=== PATIENT | male | born 1960 | race Caucasian/White ===

== ENCOUNTER 2018-08-04 17:37 | Outpatient (REF) | payer BC, SELFPAY ==
[2018-08-04 18:31] LABS: HCT 49.9 % (40.0-50.0); Mean Corp. HGB Concentration 34.1 g/dL (32.0-36.0); Mean Corpuscular Hemoglobin 30.4 pg (27.0-33.0); Mean Corpuscular Volume 89.3 fL (80-95); Mean Platelet Volume 9.1 fL (8.0-11.0); Platelet Count 345 x1000/uL (130-400); RBC 5.59 m/cumm (4.50-6.00); RBC Distribution Width 12.7 % (11.8-14.1); White Blood Cell Count 8.08 k/cumm (4.4-10.8)
[2018-08-04 18:51] LABS: ALT 21 U/L (12-78); AST 17 U/L (15-37); Albumin 3.9 g/dL (3.4-5.0); Alkaline Phosphatase 59 U/L (46-116); Anion Gap 10.7 mmol/L (3-11); BUN 14 mg/dL (7-18); Bilirubin, Total 0.6 mg/dL (0.2-1.0); CO2 27.3 mmol/L (21.0-32.0); CREATININE 1.03 mg/dL (0.70-1.30); Calcium 9.7 mg/dL (8.5-10.1); Chloride 100 mmol/L (98-107); Glucose 85 mg/dL (70-100); Potassium 4.5 mmol/L (3.5-5.1); Sodium 138 mmol/L (136-145); Total Protein 7.3 g/dL (6.4-8.2)
[2018-08-09 09:07] LABS: PSA, Screening 1.3 ng/ml (0-3.5)
[2018-08-12 11:50] LABS: Testosterone, Free 45.8 ng/dL (3.87-14.7); Testosterone, Total 1090 ng/dL (240-950)
== END 2018-08-04 17:57 ==
LOC: NCHCN 17:37
PROVIDERS: PCP Family Medicine; Visit Provider Family Medicine
DX: E29.1 Testicular hypofunction (principal); Z12.5 Encounter for screening for malignant neoplasm of prostate
CPT/HCPCS: 80053; 84153; 84402; 84403; 85027

== ENCOUNTER 2018-12-11 15:55 | Outpatient (REF) | payer BC, SELFPAY ==
--- NOTE | 2018-12-11 15:55 | SKI_PTH ---
PATIENT: Jefry Guadarrama LOC: [facility] U#:[id number] AGE/SX: 57/M ROOM: RE12/11/[address]: Dom Kennedy : 1960 BED: DIS: 12/11/2018 SPEC #: [id number] RECD: 12/12/18 12:37 STATUS: LARA HARDIN #: [id number] KARLENE: 12/11/18 15:[address]: Dom Kennedy DEPT: Surgical Specimen RECD BY: Althea Santos Tissues: 1 - SKIN BIOPSY(SHAVE/PUNCH) Procedures: SKIN LEVEL 4 Comments: [id number]
== END 2018-12-11 16:15 ==
LOC: NCHCN 15:55
PROVIDERS: PCP Family Medicine; Visit Provider Family Medicine
DX: L82.1 Other seborrheic keratosis (principal)
CPT/HCPCS: 88305

== ENCOUNTER 2019-01-15 13:29 | Outpatient (CLI) | payer BC, SELFPAY ==
--- NOTE | 2019-01-15 11:57 | DI.RAD_ITS ---
SYMPTOMS/DIAGNOSIS: LOW BACK PAIN, M54.5 LUMBOSACRAL SPINE: Five views were obtained. The intervertebral disc spaces appear fairly well maintained. Prominent hypertrophic changes of the vertebral endplates are noted at multiple levels of thoracolumbar junction region and also at L 4 - 5. Moderate hypertrophic degenerative changes of the facet joints noted throughout the lumbar region as well. No evidence of spondylolysis or spondylolisthesis. No fracture or other pathology seen. CONCLUSION: Degenerative changes of the lumbar spine as described above.
== END 2019-01-15 13:49 ==
PROVIDERS: PCP Family Medicine; Visit Provider Family Medicine
DX: M54.5 Low back pain (principal); M47.816 Spondylosis without myelopathy or radiculopathy, lumbar region
CPT/HCPCS: 72110

== ENCOUNTER 2019-05-29 13:11 | Outpatient (CLI) | payer BC, SELFPAY ==
[2019-05-29 13:37] VITALS: BP 127/82; PULSE 112; RESP 18; TEMP 37.9; O2SAT 97
[2019-05-29 14:40] VITALS: BP 146/80; PULSE 105; RESP 13; O2SAT 97
[2019-05-29] MEDS: Omnipaque 240 MG/ML 50 ML BTL IJ (14:40)
[2019-05-29] MEDS: methylPREDNISolone ACETATE 80 MG/ML VIAL IM (14:41)
--- NOTE | 2019-05-29 14:41 | PDOC.PAIN ---
Pain Clinic Procedure Note Procedure Note Procedure Note: Lumbar Epidural Steroid Injection Procedure Note COMMENTS: Previously seen in our office. Notes and most recent lumbar spine MRI reviewed. OPAL JALLOH has been referred to the [facility] for lumbar epidural steroid injection. The patient was greeted by the nurse who verified patients name and . Patient was then taken to the fluoroscopy suite. The patient was interviewed and the medial record reviewed. There were no medical, pharmacologic, radiographic, or other structural contraindications to attempting fluoroscopically guided lumbar epidural steroid injection. Risks and expected side effects as well as potential benefits of the procedure were reviewed and voiced concerns expressed. The patient consent form was signed and witnessed. Standard patient time-out procedure was performed. The patient was placed in the prone position on the fluoroscopy table and automated blood pressure cuff and pulse oximeter applied. The skin entry point for entering/approaching the epidural space at L5-S1 and marked. Following thorough chlorhexadine preparation of the skin and draping and 1% lidocaine infiltration of the skin entry point and subcutaneous tissues, a 18 gauge Touhy needle was placed under fluoroscopic guidance and with loss of resistance technique into the epidural space. Needle tip placement and depth were aided and confirmed by fluoroscopy. There was no paresthesia or return of blood or CSF through the needle. 1 cc's of Omnipaque 240 was injected with clear epidural spread confirmed with fluoroscopy. 80mg depomedrol was injected. There was not any unusual discomfort expressed by OPAL JALLOH. Patient's vital signs were stable throughout the procedure and were as recorded in nursing records. Follow up plans and appointments were discussed with patient. Post procedure instruction was given as documented in nursing records and having met discharge criteria and was discharged from the [facility]. COMMENTS: If this procedure is helpful, it can be completed up to 3 times per 12 months.
--- NOTE | 2019-05-29 15:05 | DI.RAD_ITS ---
EXAM: XR PAIN CLINIC LUMBAR SP 2V CLINICAL HISTORY: Lumbar Epidural Steroid Injection TECHNIQUE: COMPARISON: No exams were available for comparison FINDINGS: C-arm fluoroscopy was utilized by Dr. Morris during lumbar epidural steroid injection. Hard copies luba w epidural injection at the L5-S1 level. IMPRESSION:
== END 2019-05-29 13:31 ==
PROVIDERS: PCP Family Medicine; Visit Provider Preventive Medicine Occupational Medicine
DX: M54.17 Radiculopathy, lumbosacral region (principal)
CPT/HCPCS: 62323; 72100; J1040; Q9967

== ENCOUNTER 2019-08-16 13:44 | Outpatient (CLI) | payer BC, SELFPAY ==
[2019-08-16 14:02] VITALS: BP 121/75; PULSE 105; RESP 18; TEMP 37.7; O2SAT 96
--- NOTE | 2019-08-16 15:08 | PDOC.PAIN_ITS ---
Pain Clinic Procedure Note Procedure Note Procedure Note: Lumbar/Sacral Medial Branch Blocks OPAL JALLOH has been referred to the [facility] for lumbar/sacral medial branch blocks. COMMENTS: I did review Ms. Barba's note from his recent visit here. DX: Lumbosacral spondylosis without myelopathy Patient was interviewed and the medical record reviewed. There were no medical, pharmacologic, radiographic or other structural contraindications to attempting fluoroscopically guided local anesthetic lumbar/sacral medial branch blocks. Risks and expected side effects as well as potential benefit of the procedure were reviewed and voiced concerns addressed. The printed consent form was signed and witnessed. Standard time-out procedure was performed. Patient was placed in the prone position on the fluoroscopy table and automated blood pressure cuff and pulse oximeter applied. The skin entry points for approaching the anatomic target points of the segmental medial branches of bilateral L3-L5 were identified with anfluoroscopy and marked. Following thorough Chlorhexadine preparation of the skin and draping and 1% lidocaine infiltration of the skin entry points and subcutaneous tissues, a 25 gauge 3.5 spinal needle was placed under fluoroscopic guidance down on to the target point for each respective segmental medial branch.Position was confirmed in A/P, oblique and lateral views with 0.25ml of omnipaque 240. At this point, I injected 0.5ml of 0.5% Bupivacaine was injected at each segmental nerve. Vital signs were stable throughout the procedure and were as recorded in the docflowsheet by the nursing staff. Follow up plans and appointments were discussed and was instructed to keep careful note of how the usual pain was modified by these injections. Specifically was asked to keep a pain diary for the next 24 hours using a numer ic pain scale of 0-10 and report these results at the follow-up visit. Post procedure instruction was given as documented in the nursing documentation and having met discharge criteria. Patient was discharged from the [facility]. Based on the medial branches blocked today, if the patient has adequate relief and we are able to proceed to radiofrequency ablation, the treatment should r esult in the denervation of the bilateral L4-L5 and L5-S1 FACET JOINTS. We would expect to denervate a total of 4 facets during the radiofrequency ablation. COMMENTS: He will call back with his 1-4 hour pain scores for his low back. CC: Dom Kennedy
[2019-08-16 15:17] VITALS: BP 136/93; PULSE 98; RESP 18; O2SAT 98
[2019-08-16] MEDS: Omnipaque 240 MG/ML 50 ML BTL IJ (15:20)
[2019-08-16] MEDS: Bupivacaine 0.5% Pres-Free 10 ML VIAL IJ (15:21)
--- NOTE | 2019-08-16 15:57 | DI.RAD_ITS ---
EXAM: XR PAIN CLINIC LUMBAR SP 2V CLINICAL HISTORY: LUMBAR SPONDYLOSIS, BILATERAL LUMBAR MEDIAL BRANCH BLOCKS #2 TECHNIQUE: C-arm fluoroscopy was utilized by Dr. Morrsi during reported lumbar medial branch block. COMPARISON: No exams were available for comparison FINDINGS: Hard copies show needle placement and injection adjacent to the pedicles of what appear to be L3, L4 and L5 bilaterally. Fluoro time 59.3 seconds
== END 2019-08-16 14:04 ==
PROVIDERS: PCP Family Medicine; Visit Provider Preventive Medicine Occupational Medicine
DX: M47.817 Spondylosis without myelopathy or radiculopathy, lumbosacral region (principal)
CPT/HCPCS: 64493; 64494; 72100; Q9967

== ENCOUNTER 2019-08-30 10:19 | Outpatient (CLI) | payer BC, SELFPAY ==
[2019-08-30 10:50] VITALS: BP 111/73; PULSE 88; RESP 18; TEMP 37.6; O2SAT 96
--- NOTE | 2019-08-30 11:38 | PDOC.PAIN ---
Pain Clinic Procedure Note Procedure Note Procedure Note: Lumbar/Sacral Medial Branch Blocks #2 OPAL JALLOH has been referred to the [facility] for lumbar/sacral medial branch blocks. COMMENTS: He did great with LMBB #1 on 08/16/2019 DX: Lumbosacral spondylosis without myelopathy Patient was interviewed and the medical record reviewed. There were no medical, pharmacologic, radiographic or other structural contraindications to attempting fluoroscopically guided local anesthetic lumbar/sacral medial branch blocks. Risks and expected side effects as well as potential benefit of the procedure were reviewed and voiced concerns addressed. The printed consent form was signed and witnessed. Standard time-out procedure was performed. Patient was placed in the prone position on the fluoroscopy table and automated blood pressure cuff and pulse oximeter applied. The skin entry points for approaching the anatomic target points of the segmental medial branches of bilateral L3-L5 were identified with anfluoroscopy and marked. Following thorough Chlorhexadine preparation of the skin and draping and 1% lidocaine infiltration of the skin entry points and subcutaneous tissues, a 22 gauge spinal needle was placed under fluoroscopic guidance down on to the target point for each respective segmental medial branch.Position was confirmed in A/P, oblique and lateral views with 0.25ml of omnipaque 240. At this point I injected 0.5cc of 2% Lidocaine at each segmental nerve. Vital signs were stable throughout the procedure and were as recorded in the docflowsheet by the nursing staff. Follow up plans and appointments were discussed and was instructed to keep careful note of how the usual pain was modified by these injections. Specifically was asked to keep a pain diary for the next 24 hours using a numeric pain scale of 0-10 and report these results at the follow-up visit. Post procedure instruction was given as documented in the nursing documentation and having met discharge criteria. Patient was discharged from the [facility]. Based on the medial branches blocked today, if the patient has adequate relief and we are able to proceed to radiofrequency ablation, the treatment should result in the denervation of the bilateral L3-L5DR FACET JOINTS. We would expect to denervate a total of 4 facets during the radiofrequency ablation. COMMENTS: He will call back with his 1-4 hour post-procedure pain levels for his low back. CC: Dom Kennedy
[2019-08-30] MEDS: Omnipaque 240 MG/ML 50 ML BTL IJ (11:47)
[2019-08-30] MEDS: Lidocaine 2% Pres-Free 5 ML VIAL IJ (11:48)
[2019-08-30 11:49] VITALS: BP 116/86; PULSE 94; RESP 12; O2SAT 96
--- NOTE | 2019-08-30 12:29 | DI.RAD_ITS ---
EXAM: XR PAIN CLINIC LUMBAR SP 2V CLINICAL HISTORY: Lumbar Medial Branch Block Bilat, lumbar spondylosis TECHNIQUE: Fluoroscopy was provided for the referring physician for guidance with performing injecti on procedure. Fluoro time: 13.63 mGy COMPARISON: No exams were available for comparison FINDINGS: Please see procedure note for details.
== END 2019-08-30 10:39 ==
PROVIDERS: PCP Family Medicine; Visit Provider Preventive Medicine Occupational Medicine
DX: M47.817 Spondylosis without myelopathy or radiculopathy, lumbosacral region (principal)
CPT/HCPCS: 64493; 64494; 72100; Q9967

== ENCOUNTER 2019-10-02 11:30 | Outpatient (CLI) | payer BC, SELFPAY ==
[2019-10-02 11:45] VITALS: BP 110/74; PULSE 93; RESP 16; TEMP 37.2; O2SAT 96
--- NOTE | 2019-10-02 11:52 | PDOC.PAIN ---
Pain Clinic Procedure Note Procedure Note Procedure Note: BILATERAL Lumbar Radiofrequency with Coolief Machine PROCEDURE NOTE Date of Service: October 02, 2019 Patient: YEIMIOPAL DALEY Mckay Provider: SOFIA ASHLEY MD Pre Operative Diagnosis: lumbar spondylosis Post Operative Diagnosis: same as above Radiofrequency Ablation of medial branches - bilateral L3, L4, L5-DR OPAL JALLOH was brought into the fluoroscopy suite and positioned into the prone position on the fluoroscopy table and allowed to adjust to a position of comfort. A grounding pad was placed on the [right/left] thigh. The lumbar region was widely prepped with a chloraprep solution, allowed to air dry and draped in standard sterile surgical fashion. Local anesthesia was provided by [] mL of [] % [] delivered with a 25g needle. A 17g 100mm radiofrequency introducer needle was placed to the planned anatomic targets guided with intermittent fluoroscopy with a perpendicular approach to terminally place at the junction of the superior articular process and the transverse process of the bilateral L3, L4, and the base of the sacral ala on the bilateral for the L5 medial branch nerve. The stylets were removed and radiofrequency probes with a 4mm active tip were then inserted. Needle tip position of the probes was verified in the AP, oblique, and lateral views. At each site, the medial branch nerve was stimulated at 2 Hz to a maximum 1-2 volts determined to finalize safe needle and electrode placement. The patient was awake and responsive during this portion of the procedure. Each target was anesthetized with 1 mL of 2 % lidocaine for anesthesia for lesioning and then each target was lesioned at 80 degrees Celsius for 2 minutes and 30 seconds. Tissue impedences were noted to be between 250 and 500 Ohms. Electrodes and needles were then removed and bandages placed over the needle placement sites, the patient then returned to the supine position on a stretcher and transported to the recovery room without hemodynamic, neurologic, or allergic reactions. Fluoroscopic images were printed for hard copy recording and digitally archived. Follow up plans and appointments were discussed with the OPAL . Post procedure instruction was given as documented in nursing documentation and having met discharge criteria, OPAL was discharged from the [facility]. COMMENTS: No complications. patient received total of 1mg IV versed and 50mcg of IV Fentanyl for anxiolytic. He otherwise tolerated procedure well without issue. F/U with our office as needed. I personally performed this entire procedure. Sofia Ashley MD Attending Physician
[2019-10-02] MEDS: fentaNYL 100 MCG/2 ML VIAL IVP ×2 (12:14→12:42)
[2019-10-02] MEDS: Midazolam 2 MG/2 ML VIAL IVP (12:15)
[2019-10-02] MEDS: Lactated Ringers 1,000 ML 80 ML IV (12:15)
[2019-10-02 12:54] VITALS: BP 133/87; PULSE 99; RESP 19; O2SAT 94
--- NOTE | 2019-10-02 12:55 | DI.RAD_ITS ---
EXAM: XR PAIN CLINIC LUMBAR SP 2V CLINICAL HISTORY: Dx: Lumbar Spondylosis TECHNIQUE: Realtime digital imaging was performed. Fluoro time: 90.1 sec, 27.18 mGy COMPARISON: No exams were available for comparison FINDINGS: Fluoroscopy was utilized by Dr. Castro during the performance of a lumbar radiofrequency ablation. Jf johnson refer to the procedure report for complete details.
[2019-10-02] MEDS: methylPREDNISolone ACETATE 40 MG/ML VIAL IJ (13:05)
[2019-10-02] MEDS: Lidocaine 1% Pres-Free 30 ML VIAL IJ (13:05)
[2019-10-02] MEDS: Lidocaine 2% Pres-Free 5 ML VIAL IJ (13:06)
[2019-10-02] MEDS: Bupivacaine 0.5% Pres-Free 10 ML VIAL IJ (13:06)
== END 2019-10-02 11:50 ==
PROVIDERS: PCP Family Medicine; Visit Provider Internal Medicine
DX: M47.816 Spondylosis without myelopathy or radiculopathy, lumbar region (principal)
CPT/HCPCS: 64635; 64636; 72100; J1030; J2250; J3010

== ENCOUNTER 2019-10-22 10:39 | Outpatient (CLI) | payer BC, SELFPAY ==
--- NOTE | 2019-10-22 10:30 | DI.RAD_ITS ---
EXAM: XR KNEE LT 3V AP,LAT,MARY AND XR KNEE RT 3V AP, LAT,MARY CLINICAL HISTORY: anterior left knee pain, anterior rt knee pain TECHNIQUE: 2D digital imaging was performed. FINDINGS: BONES: No acute fracture is present. No bony destructive lesion is seen. There are enthesophytes see n at the patella and the anterior tibial tuberosity on the left and the right. JOINTS: The knee is normally aligned. No joint effusion is seen. SOFT TISSUE: Normal. Vascular calcifications are present. IMPRESSION: No acute abnormality. Chronic changes of the knees bilaterally. DATA REPOSITORY: RADIATION DOSE DELIVERED:
== END 2019-10-22 10:59 ==
PROVIDERS: PCP Family Medicine; Visit Provider Student in an Organized Health Care Education/Training Program
DX: M25.562 Pain in left knee (principal); M25.561 Pain in right knee; M76.891 Other specified enthesopathies of right lower limb, excluding foot; M76.892 Other specified enthesopathies of left lower limb, excluding foot
CPT/HCPCS: 73562

== ENCOUNTER 2019-10-31 02:16 | Outpatient (CLI) | payer BC, SELFPAY ==
--- NOTE | 2019-10-31 08:30 | DI.MRI_ITS ---
EXAM: MR LOWER JOINT LT WO CLINICAL HISTORY: INTERNAL DERANGEMENT LT KNEE, PAIN,M23.92. TECHNIQUE: Multiplanar multisequence MRI was performed. COMPARISON: XR KNEE LT 3V AP,LAT,MARY from 10/22/2019 FINDINGS: Bones: No significant bony signal abnormality is seen. Superior and inferior patellar enthesophytes n oted as seen on plain films. Articular cartilage: Mild narrowing of patellofemoral joint articular cartilage with small focal cart ilage defect lateral patellar facet and lateral trochlea. Minimally abnormal signal of patellofemoral articular cartilage. Mild thinning of medial and lateral tibiofemoral articular cartilage, probable small linear focal def ect of medial femoral condylar articular cartilage. Mild surface irregularity of both medial and late ral and tibial articular cartilage. Menisci: No tear of menisci or meniscal attachments. Minimally abnormal signal medial and lateral men isci, question slight fraying of posterior horn meniscal surfaces medially and laterally. Cruciate ligaments: No cruciate ligament tear seen. Extensor mechanism: Mildly abnormal signal at patellar tendon attachment inferiorly involving the ten don and adjacent anterior soft tissues. Similar findings also present at the quadriceps attachment, b ut less marked. Unremarkable appearance of Hoffa fat pad and suprapatellar fat pads Additional: No Portillo's cyst. Unremarkable tendon attachments as visualized. IMPRESSION: Degenerative articular cartilage changes, no other significant findings. DATA REPOSITORY:
== END 2019-10-31 02:36 ==
PROVIDERS: PCP Family Medicine; Visit Provider Student in an Organized Health Care Education/Training Program
DX: M25.562 Pain in left knee (principal); M23.92 Unspecified internal derangement of left knee; M17.12 Unilateral primary osteoarthritis, left knee
CPT/HCPCS: 73721

== ENCOUNTER 2020-02-08 11:31 | Outpatient (REF) | payer BC, SELFPAY ==
[2020-02-08 15:27] LABS: HCT 47.4 % (40.0-50.0); HGB 16.6 g/dL (13.5-17.5); Mean Corpuscular Hemoglobin 30.8 pg (27.0-33.0); Mean Corpuscular Volume 87.9 fL (80-95); Mean Platelet Volume 9.2 fL (8.0-11.0); Platelet Count 296 x1000/uL (130-400); RBC 5.39 m/cumm (4.50-6.00); White Blood Cell Count 6.77 k/cumm (4.4-10.8)
[2020-02-08 16:43] LABS: ALT 31 U/L (16-63); AST 23 U/L (15-37); Albumin 3.9 g/dL (3.4-5.0); Alkaline Phosphatase 82 U/L (46-116); Anion Gap 9.4 mmol/L (3-11); BUN 17 mg/dL (7-18); Bilirubin, Total 0.7 mg/dL (0.2-1.0); CO2 27.6 mmol/L (21.0-32.0); CREATININE 1.19 mg/dL (0.70-1.30); Calcium 9.3 mg/dL (8.5-10.1); Calculated LDL 75 mg/dL (<100); Chloride 98 mmol/L (98-107); Cholesterol 145 mg/dL (<200); Glucose 233 mg/dL (74-106); HDL Cholesterol 45 mg/dL (40-60); Potassium 4.8 mmol/L (3.5-5.1); Sodium 135 mmol/L (136-145); Total Protein 7.3 g/dL (6.4-8.2); Triglyceride 129 mg/dL (<150)
[2020-02-11 10:04] LABS: PSA, Screening 1.4 ng/mL (0.0-4.5)
[2020-02-13 13:38] LABS: Testosterone, Free 2.12 ng/dL (3.67-13.9); Testosterone, Total 92 ng/dL (240-950)
== END 2020-02-08 11:51 ==
LOC: NCHCN 11:31
PROVIDERS: PCP Family Medicine; Visit Provider Family Medicine
DX: E11.9 Type 2 diabetes mellitus without complications (principal); Z79.4 Long term (current) use of insulin; E29.1 Testicular hypofunction; Z00.00 Encounter for general adult medical examination without abnormal findings; Z12.5 Encounter for screening for malignant neoplasm of prostate
CPT/HCPCS: 80053; 80061; 84153; 84402; 84403; 85027

== ENCOUNTER 2020-03-18 02:01 | Outpatient (CLI) | payer BC, SELFPAY ==
--- NOTE | 2020-03-18 15:00 | NS.NUTBLAN_ITS ---
Jefry presents for Medical Nutrition Therapy for Diabetes/Diet management. He is here today to improve his A1C control and wants to work on improving his diet. PMH: constipation, Insulin Dept DM, HTN, Hyperlipidemia. Meds include: fiber pills, levemire- 40 unites daily, 500 mg metformin BID, lisinopril, atorvastatin. He reports typically not checking sugars at home, reports elevated A1C and poor glycemic control. No recent A1C labs available, most recent labs tests(02/08/20) indicates hyperglycemia(233), lipids wnl. Wt: 195 lbs. Had gastric band 2012 with initial weight of 270 lbs. Has kept > 75 lbs off for last 5 years. Had band adjustment yesterday- loosened. Estimated Needs: 1094-6853 kcal, 65-75 g protein, 2000 ml fluid Diet recall indicates that he typically skips breakfast, has typically one meal daily and eats cereal/fruit at dinner. Reliant on convenience and junk foods. Does not exercise regularly or take multivitamins. Current diet meeting <50% of caloric/protein and fluid needs at this time which will lead to muscle loss,constipation and lowering of metabolic rate. Elevated blood sugars due to poor diet choices high in simple sugars and erratic meal schedule. Recommended citrucel instead of fiber pills as fluid intake below recommendations. Intervention: Reviewed importance of following 3 meals daily and meeting nutrient needs with focus on lean protein, complex carbs and non starchy vegetables. reviewed importance of maintaining metabolic rate to decrease risk of weight regain after gastric banding. Provided education on DM including Hyper/hypoglycemia s/s with action plan for each scenario. Definition and types of CHO with examples, CHO counting, DASH diet materials, DM meal planning and label reading literature. Provided a blood sugar and food record chart and materials to reiterate CHO counting techniques. Reviewed desirable BG levels with patient with food choices and portions for optimal outcomes. Provided contact information for this RD and encouraged to call with any f/u questions r/t to DM self management. Encouraged MVI daily. Plan: 1. check blood sugars and follow up with MD, 2. follow 1500 kcal meal plan as provided,decrease reliance on convenience foods 3. take chewable MVI for men (centrum silver), 4. start formal exercise program. 5. follow up needed, no fu meeting made today.
== END 2020-03-18 02:21 ==
PROVIDERS: PCP Family Medicine; Visit Provider Dietitian, Registered
DX: E11.9 Type 2 diabetes mellitus without complications (principal); Z79.4 Long term (current) use of insulin; I10 Essential (primary) hypertension; E78.5 Hyperlipidemia, unspecified; Z71.3 Dietary counseling and surveillance
CPT/HCPCS: 97802

== ENCOUNTER 2020-04-04 18:51 | Outpatient (REF) | payer BC, SELFPAY ==
[2020-04-08 05:37] LABS: SARS-CoV-2 RNA Undetected (Undetected); SARS-CoV-2 Specimen Source Nasopharynx
== END 2020-04-04 19:11 ==
LOC: NCHCN 18:51
PROVIDERS: PCP Family Medicine; Visit Provider Family Medicine
DX: Z20.828 Contact with and (suspected) exposure to other viral communicable diseases (principal)
CPT/HCPCS: U0003

== ENCOUNTER 2020-04-18 21:39 | Outpatient (REF) | payer BC, SELFPAY ==
[2020-04-18 20:11] LABS: Clarity Cloudy (Clear)
[2020-04-18 20:43] LABS: RBC >50 HPF (0-2)
[2020-04-18 20:44] LABS: C & S Indicated? No
== END 2020-04-18 21:59 ==
LOC: NCHCN 21:39
PROVIDERS: PCP Family Medicine; Visit Provider Family Medicine
DX: R31.0 Gross hematuria (principal)
CPT/HCPCS: 81003; 81015

== ENCOUNTER 2020-04-28 12:20 | Outpatient (REF) | payer BC, SELFPAY ==
[2020-04-28 19:57] LABS: CREATININE 0.93 mg/dL (0.70-1.30)
== END 2020-04-28 12:40 ==
LOC: NCHCN 12:20
PROVIDERS: PCP Family Medicine; Visit Provider Family Medicine
DX: R31.0 Gross hematuria (principal)
CPT/HCPCS: 82565

== ENCOUNTER 2020-05-01 01:20 | Outpatient (CLI) | payer BC, SELFPAY ==
--- NOTE | 2020-05-01 | DI.CT_ITS ---
EXAM: CT ABDOMEN PELVIS WO/W CLINICAL HISTORY: HEMATURIA,R31.9 TECHNIQUE: COMPARISON: No exams were available for comparison FINDINGS: CT examination of the abdomen and pelvis was performed utilizing CT urogram protocol with intravenous infusion of 100 cc of Omnipaque 350 and scanning obtained prior to contrast, with venous phase and d elayed phase imaging. Lung bases are clear. Unremarkable appearance of the liver, spleen, and pancreas. Cholelithiasis no jameson. No biliary dilatation. No gallbladder wall thickening or pericholecystic fluid collection seen . Gastric band with subcutaneous inflation reservoir noted. Abdominal aorta is of normal diameter and major visceral vessels appear intact. No abdominal or pelvic adenopathy seen. Noncontrast CT shows no evidence of urinary tract calcification. Following contrast administration, there is symmetrical normal enhancement of the renal cortex and prompt symmetric excretion. No renal mass identified. The pelvicaliceal systems and ureters are unremarkable in appearance. Urinary cheng dder has a thickened wall. Prostatic enlargement noted which indents the bladder floor. IMPRESSION: No evidence of urinary tract obstruction or calcification. Marked urinary bladder wall thickening, q uestion chronic bladder outlet obstruction versus cystitis. Note is made of cholelithiasis. RADIATION DOSE DELIVERED: 3,237.95mGy.cm Total DLP
== END 2020-05-01 01:40 ==
PROVIDERS: PCP Family Medicine; Visit Provider Family Medicine
DX: R31.9 Hematuria, unspecified (principal); K80.20 Calculus of gallbladder without cholecystitis without obstruction
CPT/HCPCS: 74178

== ENCOUNTER 2020-05-09 08:03 | Outpatient (CLI) | payer BC, SELFPAY ==
[2020-05-10 23:40] LABS: COVID-19 RT-PCR Result NEGATIVE (Negative)
== END 2020-05-09 08:23 ==
PROVIDERS: PCP Family Medicine; Visit Provider Nurse Practitioner Gerontology
DX: Z11.59 Encounter for screening for other viral diseases (principal); Z01.818 Encounter for other preprocedural examination
CPT/HCPCS: U0003

== ENCOUNTER 2020-06-10 09:23 | Outpatient (CLI) | payer BC, SELFPAY ==
--- NOTE | 2020-06-10 06:00 | DI.RAD_ITS ---
EXAM: XR PAIN CLINIC LUMBAR SP 2V CLINICAL HISTORY: Dx: Lumbar Spondylosis TECHNIQUE: 2D and realtime digital imaging was performed. COMPARISON: No exams were available for comparison FINDINGS: C-arm fluoroscopy was utilized by Dr. Harmon during reported RF ablation. Hard copies show needle placeme nt bilaterally adjacent to the facet joints at what appear to be the L3-4 L4-5 and L5-S1 levels. Fluoro time 85 seconds. IMPRESSION: RADIATION DOSE DELIVERED: Total DLP
[2020-06-10 13:37] VITALS: BP 132/84; PULSE 92; RESP 16; TEMP 36.4; O2SAT 97
[2020-06-10] MEDS: Lactated Ringers 1,000 ML 80 ML IV (14:01)
[2020-06-10] MEDS: Midazolam 2 MG/2 ML VIAL IVP (14:17)
[2020-06-10] MEDS: fentaNYL 100 MCG/2 ML VIAL IVP ×2 (14:17→14:44)
[2020-06-10 14:57] VITALS: BP 135/83; PULSE 106; RESP 18; O2SAT 100
[2020-06-10] MEDS: Bupivacaine 0.5% Pres-Free 10 ML VIAL IJ (15:10)
[2020-06-10] MEDS: Lidocaine 1% Pres-Free 30 ML VIAL IJ (15:11)
[2020-06-10] MEDS: Lidocaine 2% Pres-Free 5 ML VIAL IJ (15:11)
== END 2020-06-10 09:43 ==
PROVIDERS: PCP Family Medicine; Visit Provider Internal Medicine
DX: M47.816 Spondylosis without myelopathy or radiculopathy, lumbar region (principal)
CPT/HCPCS: 64635; 64636; 72100; J2250; J3010

== ENCOUNTER 2021-01-14 03:18 | Outpatient (CLI) | payer BC, SELFPAY ==
[2021-01-14 09:23] LABS: HCT 43.1 % (40.0-50.0); HGB 15.1 g/dL (13.5-17.5); MCH 31.7 pg (27.0-33.0); MCV 90.5 fL (80-95); MPV 8.4 fL (8.0-11.0); Platelet Count 308 10^3/uL (130-400); RBC 4.76 10^6/uL (4.36-5.78); RDW 12.7 % (11.8-14.1); RDW-SD 41.4 fL; WBC 5.21 10^3/uL (4.4-10.8)
[2021-01-14 10:15] LABS: ALT 18 U/L (16-63); AST 14 U/L (15-37); Albumin 3.5 g/dL (3.4-5.0); Alkaline Phosphatase 64 U/L (46-116); Anion Gap 10.7 mmol/L (3-11); BUN 15 mg/dL (7-18); Bilirubin, Total 0.5 mg/dL (0.2-1.0); CO2 25.3 mmol/L (21.0-32.0); CREATININE 1.1 mg/dL (0.70-1.30); Calcium 8.6 mg/dL (8.5-10.1); Chloride 103 mmol/L (98-107); Glucose 162 mg/dL (74-106); Potassium 4.6 mmol/L (3.5-5.1); Sodium 139 mmol/L (136-145); Total Protein 6.7 g/dL (6.4-8.2)
[2021-01-14 17:35] LABS: PSA, Screening 1.1 ng/mL (0.0-4.5)
[2021-01-16 16:35] LABS: Testosterone, Free 7.96 ng/dL (3.67-13.9); Testosterone, Total 181 ng/dL (240-950)
== END 2021-01-14 03:19 | disposition home or self-care (01) ==
LOC: LBO 03:18
PROVIDERS: PCP Family Medicine; Visit Provider Family Medicine
DX: E29.1 Testicular hypofunction (principal); Z12.5 Encounter for screening for malignant neoplasm of prostate; E11.9 Type 2 diabetes mellitus without complications; Z79.4 Long term (current) use of insulin
CPT/HCPCS: 36415; 80053; 84153; 84402; 84403; 85027

== ENCOUNTER 2022-02-05 01:57 | Outpatient (CLI) | payer BC, SELFPAY ==
--- OUTSIDE RECORDS SUMMARY | 2022-02-05 01:59 | XMS_ITS | Encounter Summary ---
:1960 Author Organization [facility] [place] [address] Care Team Providers Name Role Phone Keo Orozco APRN Primary Care Provider Encounter Details Date Type Department Care Team Description 11/12/2010 Office Visit Ramirez Streeter MD [address] [place] [id number] [place] [address] [phone] (Wo rk) Social History Tobacco Use Types Packs/Day Years Used Date Never Assessed Sex Assigned at Date Recorded Not on file documented as of this encounter Plan of Treatment Not on filedocumented as of this encounter Visit Diagnoses Not on filedocumented in this encounter Care Teams Pattern Changer And Repairer Relationship Specialty Start Date End Date Keo Orozco APRN PCP - General 09/30/10 09/29/11 [address] [place] [address] documented as of this encounter
--- OUTSIDE RECORDS SUMMARY | 2022-02-05 01:59 | XMS_ITS | Encounter Summary ---
:1960 Author Organization [facility] [place] [address] Care Team Providers Name Role Phone Keo Orozco APRN Primary Care Provider Encounter Details Date Type Department Care Team Description 02/01/2011 Follow-Up Ramirez Streeter MD [address] [place] [id number] [place] [address] [phone] (Wo rk) Social History Tobacco Use Types Packs/Day Years Used Date Never Assessed Sex Assigned at Date Recorded Not on file documented as of this encounter Plan of Treatment Not on filedocumented as of this encounter Visit Diagnoses Not on filedocumented in this encounter Care Teams Assistant Bookkeeper Relationship Specialty Start Date End Date Keo Orozco APRN PCP - General 09/30/10 09/29/[address] [place] [address] documented as of this encounter
--- OUTSIDE RECORDS SUMMARY | 2022-02-05 01:59 | XMS_ITS | Encounter Summary ---
:1960 Author Organization [facility] [place] [address] Care Team Providers Name Role Phone Dom Kennedy MD Primary Care Provider Encounter Details Date Type Department Care Team Description 01/04/2012 [facility] Provider, His Boy cavazos MD [facility] Health Information Services [address] [place] [phone] Social History Tobacco Use Types Packs/Day Years Used Date Never Assessed Sex Assigned at Date Recorded Not on file documented as of this encounter Plan of Treatment Not on filedocumented as of this encounter Procedures Procedure Name Priority Date/Time Associated Diagnosis Comme nts U ALBUMIN/CRE RATIO Routine 01/04/2012 2:53 PM Re sults for this EDT procedure are i n the results section. documented in this encounter Results (ABNORMAL) U Albumin/Cre Ratio (01/04/2012 2:53 PM EDT) [facility] gist Method Time Signature Alb/Cr Ratio, 42.9 <30 milligrams [facility]AN[facility] B Random (EXTERNAL per gram RESULT /ABN) CONVERSION Comment: Sourced from Yolande Jeter Conversion Specimen (Source) Anatomical Collection Method Collection Time Re ceived Time Location / / Volume Laterality 01/04/2012 2:53 PM EDT His Bull Provider URINE ORDERABLES Performing Organization Address City/State/ZIP Code Phon e Number [facility] CONVERSION [facility] RESULT CONVERSION documented in this encounter Visit Diagnoses Not on filedocumented in this encounter Care Teams Lathe Hand Relationship Specialty Start Date End Date Dom Kennedy MD PCP - General 5/16/17 [address] [place] [address] documented as of this encounter
--- OUTSIDE RECORDS SUMMARY | 2022-02-05 01:59 | XMS_ITS | Encounter Summary ---
:1960 Author Organization [place] [address] Care Team Providers Name Role Phone Dom Kennedy MD Primary Care Provider Encounter Details Date Type Department Care Team Description 06/03/2020 Telephone Urology at [facility] Estrella Hickman, [facility] [place] [address] [facility] [phone] UROLOGY DEPT. [place], [place] [address] (Wo rk) Social History Tobacco Use Types Packs/Day Years Used Date Never Smoker Smokeless Tobacco: Never Used Sex Assigned at Date Recorded Not on file documented as of this encounter Miscellaneous Notes Telephone Encounter - Jacque Santos - 06/03/2020 5:14 PM EDT LMOM to sched 3 MO Follow Up No Testing Marylou documented in this encounter Plan of Treatment Not on filedocumented as of this encounter Visit Diagnoses Not on filedocumented in this encounter Care Teams Marketing Production Manager Relationship Specialty Start Date End Date Dom Kennedy MD PCP - General 12/28/16 [place] [phone] documented as of this encounter
--- OUTSIDE RECORDS SUMMARY | 2022-02-05 01:59 | XMS_ITS | Encounter Summary ---
:1960 Author Organization [facility] [place] [address] Care Team Providers Name Role Phone Dom Kennedy MD Primary Care Provider Encounter Details Date Type Department Care Team Description 12/10/2011 Abstract [facility] Provider, His Boy cavazos MD [facility] Health Information Services [address] [place] [phone] Social History Tobacco Use Types Packs/Day Years Used Date Never Assessed Sex Assigned at Date Recorded Not on file documented as of this encounter Plan of Treatment Not on filedocumented as of this encounter Procedures Procedure Name Priority Date/Time Associated Diagnosis Comme nts HEMOGLOBIN A1C Routine 12/10/2011 9:00 AM Results for this EDT procedure are i n the results section . documented in this encounter Results (ABNORMAL) Hemoglobin A1c (12/10/2011 9:00 AM EDT) [facility] Method Time Signature Hemoglobin A1C 8.1 <=5.6 [facility] (EXTERNAL percent RESULT /ABN) CONVERSION Comment: Sourced from Yolande Jeter Conversion Specimen (Source) Anatomical Collection Method Collection Time Re ceived Time Location / / Volume Laterality 12/10/2011 9:00 AM EDT His Bull Provider CHEMISTRY ORDERABLES Performing Organization Address City/State/ZIP Code Phon e Number [facility] CONVERSION [facility] RESULT CONVERSION documented in this encounter Visit Diagnoses Not on filedocumented in this encounter Care Teams Director Regulatory Compliance Relationship Specialty Start Date End Date Dom Kennedy MD PCP - General 12/28/16 [address] [place] [address] documented as of this encounter
--- OUTSIDE RECORDS SUMMARY | 2022-02-05 01:59 | XMS_ITS | Clinical Summary ---
:1960 Author Organization [facility] [place] [address] Care Team Providers Name Role Phone Dom Kennedy MD Primary Care Provider Allergies Active Allergy Reactions Severity Noted Date Comments Cat/Feline Products Trazodone Other (See Comments) 03/30/2012 Medications Medication Sig Dispensed Refills Start Date End Date Status atorvastatin Take 20 mg by mouth 0 07/28/2015 Active (LIPITOR) 20 mg daily. Tablet FLUoxetine (PROZAC) Take 40 mg by mouth 0 09/02/2015 Active 40 mg Capsule daily. LEVEMIR FLEXTOUCH 40 Units daily. 0 08/07/2015 Active Insulin Pen lisinopril Take 20 mg by mouth 0 08/07/2015 Active (PRINIVIL;ZESTRIL) daily. 20 mg Tablet metFORMIN Take 500 mg by mouth 0 08/07/2015 Active (GLUCOPHAGE-XR) 500 daily. mg Tablet Sustained Release 24 hr montelukast Take 10 mg by mouth 0 08/07/2015 Active (SINGULAIR) 10 mg daily. Tablet BD REGULAR BEVEL 0 09/02/2015 Ac tive NEEDLES 19 x 1 1/2 Needle BD INSULIN PEN 0 08/09/2015 Acti ve NEEDLE UF MINI 31 gauge x 3/16 Needle VIAGRA 100 mg 100 mg as needed. 0 08/21/2015 Active Tablet testosterone once a week. 0 08/11/2015 Act oma cypionate (DEPOTESTOSTERONE CYPIONATE) 200 mg/mL Oil tamsulosin (Flomax) Take 2 capsules by 180 tablet 3 05/28/2020 Active 0.4 mg Capsule mouth daily. amLODIPine TAKE ONE TABLET BY 0 05/10/2020 Active (Norvasc) 2.5 mg MOUTH EVERY DAY FOR Tablet BLOOD PRESSURE meloxicam (MOBIC) TAKE ONE TABLET BY 0 05/09/2020 Active 15 mg Tablet MOUTH EVERY DAY WITH FOOD NEEDED FOR BACK PAIN. empagliflozin Take 10 mg by mouth 90 tablet 3 01/29/2021 Active (Jardiance) 10 mg daily. TabletIndications: Type 2 diabetes mellitus with hyperglycemia, with long-term current use of insulin flash glucose 1 Device by 1 each 0 01/29/2021 Act oma scanning reader Misc.(Non-Drug; (FreeStyle Arleen 14 Combo Route) route Day [place]) as needed. MiscIndications: Type 2 diabetes mellitus with hyperglycemia, with long-term current use of insulin insulin glargine Inject 40 Units 45 mL 3 01/29/2021 Active (Lantus) 100 subcutaneously unit/mL (3 mL) daily. penIndications: Type 2 diabetes mellitus with hyperglycemia, with long-term current use of insulin FreeStyle Arleen 2 CHANGE SENSOR EVERY 6 kit 0 12/21/2021 Active Sensor 14 DAYS DIRECTED KitIndications: FOR CONTINUOUS BLOOD Type 2 diabetes GLUCOSE MONITORING mellitus with hyperglycemia, with long-term current use of insulin Active Problems Problem Noted Date Benign localized prostatic hyperplasia with lower urin nano tract symptoms 09/08/2020 (LUTS) Gross hematuria 06/03/2020 Atypical chest pain 09/11/2015 Overview: ?? Nuclear stress test [facility] in 2014 reportedly negative ?? Treadmill stress test [facility] August 21, [address] depression in eliciting mild chest discomfort at 13.5 METs and a peak blood pressure of 224 mmHg Gastroesophageal reflux 09/11/2015 Elevated blood pressure 09/11/2015 Elevated cholesterol 09/11/2015 Depression 09/11/2015 Asthma 09/11/2015 Hx of laparoscopic gastric banding 09/11/2015 Encounters Date Type Specialty Care Team Description 12/20/2021 Refill Endocrinology ComTd stallworth MD Type 2 diabetes mellitus with hyperglycemia, with long-term current use of insulin from Last 3 Months Immunizations Name Administration Dates Next Due Influenza Vaccine, Unspecified Formulation 06/23/2011, 05/15 Pneumococcal Polyvalent 23 08/15/2006 Tdap Vaccine 01/04/2012 Social History Tobacco Use Types Packs/Day Years Used Date Never Smoker Smokeless Tobacco: Never Used Sex Assigned at Date Recorded Not on file Last Filed Vital Signs Vital Sign Reading Time Taken Comments Blood Pressure 152/79 09/08/2020 11:44 AM EST Pulse 100 09/08/2020 11:44 AM EST Temperature 36.5 ??C (97.7 ??F) 03/17/2020 11:34 AM EDT Respiratory Rate - - Oxygen Saturation 96% 10/30/2015 1:01 on room air PM EDT Inhaled Oxygen - - Concentration Weight 88.2 kg (194 lb 6.4 03/17/2020 11:34 oz) AM EDT Height 175.3 cm (5' 9) 12/05/2015 10:00 Sourced from Nubia spaulding AM EDT Conversion Body Mass Index 28.71 12/05/2015 10:00 AM EDT Plan of Treatment Health Maintenance Due Date Last Done Comments Covid-19 Vaccine (#1) 12/25/1964 HIV screen 12/25/1977 Hepatitis C Screening 12/25/1977 Colonoscopy 12/25/2004 Pneumococcal Vaccine: At-Risk 5-64yrs (2 - 08/15/200708/15 PCV) Zoster vaccine (1 of 2) 12/25/2009 Diabetes Screening (HgbA1C or Glucose) 12/09/2014 2 Advance Directive 12/25/2014 Influenza (Flu) vaccine (1 of 1 - 04/15/2021 06/23/2011, Influenza standard series) Tetanus vaccine 01/03/2022 01/04/2012 Tdap adult Completed 01/04/2012 Insurance Payer Benefit Plan Subscriber ID Effective Dates Phone Address Type / Group [facility]UE [facility] [id number] [facility] [phone] [address] [facility] [address] [place] [address] [phone] (Work) Care Teams Child Care Teacher Relationship Specialty Start Date End Date Dom Kennedy MD PCP - General 12/28/16 [address] [place] [address]
--- OUTSIDE RECORDS SUMMARY | 2022-02-05 01:59 | XMS_ITS | Encounter Summary ---
:1960 Author Organization [facility] [place] [address] Care Team Providers Name Role Phone Ralph Ellison MD Primary Care Provider Reason for Referral Diagnostic Test (Routine) - Closed Specialty Diagnoses / Procedures Referred By Contact Refer red To Contact Diagnoses Chest discomfort SOB (shortness of breath) Atypical chest pain Adolfo Antonio MD [facility] Non-Inv Card Lab Procedures Echocardiogram Stress (Treadmill) [facility] [place] [address] [place] [address] Referral ID Status Reason Start Date Expiration Date Visits V isits Requested Authorized [id number] Closed Specialty 09/26/2015 11/25/2015 1 1 Service Requested Reason for Visit Diagnostic Test (Routine) - Closed Specialty Diagnoses / Procedures Referred By Contact Refer red To Contact Diagnoses Chest discomfort SOB (shortness of breath) Atypical chest pain Adolfo Antonio MD [facility] Non-Inv Card Lab Procedures Echocardiogram Stress (Treadmill) [facility] [place] [address] [place] [address] Referral ID Status Reason Start Date Expiration Date Visits V isits Requested Authorized [id number] Closed Specialty 09/26/2015 11/25/2015 1 1 Service Requested Encounter Details Date Type Department Care Team Description 10/30/2015 Hospital Encounter Non-Invasive Katharine Antonio; Cardiology Lab Desire Saavedra MD SOB (shortness of breath); [facility] chest pain [facility] CARDIOLOGY [place] [address] [phone] Social History Tobacco Use Types Packs/Day Years Used Date Never Smoker Smokeless Tobacco: Never Used Sex Assigned at Date Recorded Not on file documented as of this encounter Medications at Time of Discharge Medication Sig Dispensed Refills Start Date End Date atorvastatin (LIPITOR) 20 Take 20 mg by mouth 0 1 09/28/2014 mg Tablet daily. FLUoxetine (PROZAC) 40 mg Take 40 mg by mouth 0 0 09/02/2015 Capsule daily. LEVEMIR FLEXTOUCH Insulin 40 Units daily. 0 08/07 Pen lisinopril Take 20 mg by mouth 0 08/07/2015 (PRINIVIL;ZESTRIL) 20 mg daily. Tablet metFORMIN (GLUCOPHAGE-XR) Take 500 mg by 0 2014 500 mg Tablet Sustained mouth daily. Release 24 hr montelukast (SINGULAIR) 10 Take 10 mg by mouth 0 08/07/2015 mg Tablet daily. BD REGULAR BEVEL NEEDLES 0 09/02/2015 19 x 1 1/2 Needle BD INSULIN PEN NEEDLE UF 0 08/09/2015 MINI 31 gauge x /16 Needle VIAGRA 100 mg Tablet 100 mg as needed. 0 08/21/19 16 testosterone cypionate once a week. 0 08/11/2015 (DEPOTESTOSTERONE CYPIONATE) 200 mg/mL Oil aspirin 81 mg Tablet, Take 1 tablet by 30 tablet 3 09/11/19 16 09/08/2020 Delayed Release (E.C.) mouth daily. documented as of this encounter Plan of Treatment Not on filedocumented as of this encounter Procedures Procedure Name Priority Date/Time Associated Comments Diagnosis STRESS ECHOCARDIOGRAM W Routine 10/30/2015 12:11 Chest d iscomfort Results for this CONTRAST LMTD SPEC PM EDT SOB (shortness of proc edure are in DOPP,COLOR DOPP breath) the results Atypical chest section. pain documented in this encounter Results STRESS ECHOCARDIOGRAM W CONTRAST LMTD SPEC DOPP,COLOR DOPP (10/30/2015 12:11 PM EDT) P athologist Signature EF 55 HEART[facility] SYSTEM Specimen (Source) Anatomical Location Collection Method / Collectio n Time Received Time / Laterality Volume 10/30/2015 Narrative [facility]ART[facility] SYSTEM - 10/30/2015 12:54 PM ED T Procedure: ?Stress Echocardiogram Patient: ?YEIMI JOSEPH ? (Age): 1960(54y) Med Rec#: ? [id number] ?Sex: ?M ? Site Loc: ? [facility] ?Ht / Wt: ??177(cm)/95.01(k Pt. Loc: ?Echo Lab ?BSA: ?2.12 Study Date: ?? 10/30/2015 ?Pt. Type: Tape: ? Referring: ADOLFO ANTONIO Referring: Adolfo Antonio Reading: Nirmal Arroyo ([id number]) Technical Service Specialist: Grady Orosco Car Builder: Milagros Duke Interpreting Fellow: Gregor Schwarz ??([id number]) Interpreting Fellow: Madan Hu ([id number]) Interpreting Fellow: Albino Rice ([id number] ) Diagnosis: *ICD-10-PCS Shortness of breath (R06.02 ) *ICD-10-PCS Other chest pain (R07.89) CPT Codes: *Stress Echo (43783) *Color Doppler (84278) *Doppler LTD (05128) *ECG Interpretation (97584) *Definity (66159MY) Stage ? BP ?HR ? Rest ?166/80 ?86 ? Peak ?200/100 ? 171 ? Recovery ?130/90 ?96 ? SUMMARY: 1. BASELINE: Normal global and segmental biventricular systolic function with an estimated left ventricular eject ion fraction of 55%. No hemodynamically significant valve diseas e. 2. STRESS: The patient exercised on a tr IceotopedmSharewave for a total of 9:41 min achieving a peak heart rate of 171 bpm, (103 % max predicted). ??With stress he experienced mild chest pain th at resolved in recovery. He was hemodynamically stable, had no arrhythmi as and developed no significant ST-TW changes. 3. ECHOCARDIOGRAPHIC FINDINGS: LV functi on augments normally at peak stress. 4. IMPRESSION: Normal exercise echocardi ogram. ??There is no echocardiographic evidence of ischemia a t this diagnostic level of stress. Findings Rest: Left Ventricle: ? The left ventricle is probably normal in size. ?There is normal global left ventri cular systolic function. ??Ejection fraction is estimated to be 55%. ?There are left ventricular segment al wall motion abnormalities present, as shown in the diagram below. Right Ventricle: ? The right ventric le is probably normal in size. ?Right ventricular global systolic function is probably normal. ?Pulmonary artery hypertension coul d not be assessed due to inadequate tricuspid regurgitation jet. Aortic Valve: ? The aortic valve is trileaflet. The leaflets are thin with normal excursion. There is no aorti c stenosis or regurgitation present. Mitral Valve: ? The mitral valve mayra ears normal in structure and function. ?There is trace mitral regurgitatio n present. Tricuspid Valve: ? The tricuspid berenice ve appears normal in structure and function. ?There is trace tricuspid regurgita tion present. Pericardium: ? The pericardium appea rs normal and there is no evidence of a pericardial effusion. Stress: ? EKG: normal sinus rhythm. ?The patient's oxygen saturation wa s 98% Misc: ? Other echo and stress findin gs as noted in report. ?A 20 gauge heplock was placed. ?An IV was placed in the patient's left arm. ?Definity contrast (one 1.5 ml vial )was used to enhance endocardial definition. Excess contrast was discarde d. ?Stress echo, limited spectral Dopp ler, color Doppler and ECG interpretation performed. Findings Peak: Predicted Values:The patient achieved a maximum heart rate of 171 which is 104% of the maximum predicted heart r ate (165 beats/min). ??The target heart rate was achieved. Left Ventricle: ? The mid anterolate ral wall segment deteriorated. ?Overall wallmotion score index is ??1.06 Stress: ? Patient followed a Guero p rotocol. ?The patient exercised into stage 4 . ?The total exercise duration was:9: 41 ?The study was terminated because o f fatigue. ?The patient expressed feelings of chest discomfort. Patient expressed a 5/10 sub sternal, non-radiat ing, dull ache. this resolved in recovery. ?The blood pressure response was hy pertensive. ?Exercise capacity was good. ?The patient achieved a level of 11 METS.(11.2) ?There were no arrhythmias. ?There were no significant ST segme nt changes. ?This was a negative electrocardiog raphic stress test for ischemia. ?EKG: sinus tachycardia. ?The patient's oxygen saturation wa s 97% Findings Recovery: Misc: ? The heplock was discontinued . ?The IV site is dry and intact with no hematoma. Chambers 2D ?Value ?Units (Range) ? Ascending Ao ?3.1 ?cm (2 - 3.5) ? Diastolic/Systolic Function ?Value ?Units (Range) ? MV E-wave Vmax ?0.5 ?m/sec ? MV deceleration [id number] ?msec ? MV A-wave Vmax ?0.6 ?m/sec ? MV E:A ratio ?0.8 ?ratio ? LV septal e' Vmax ?? 0.1 ?m/sec ? LV E:e' septal ratio9.3 ?ratio ? Wall Motion: Segment Name ?Rest ?Peak ? Base-Anteroseptal ?? Normal ?Normal ? Base-Anterior ? Normal ?Normal ? Base-Anterolateral ??Normal ?Normal ? Base-Posterolateral Normal ?Normal ? Base-Inferior ? Normal ?Normal ? Base-Inferoseptal ?? Normal ?Normal ? Mid-Anteroseptal ?Normal ?Normal ? Mid-Anterior ?Normal ?Normal ? Mid-Anterolateral ?? Normal ?Hypokinetic ? Mid-Posterolateral ??Normal ?Normal ? Mid-Inferior ?Normal ?Normal ? Mid-Inferoseptal ?Normal ?Normal ? Hector-Septal ? Normal ?Normal ? Hector-Anterior ? Normal ?Normal ? Hector-Lateral ?Normal ?Normal ? Hector-Inferior ? Normal ?Normal ? Hector-Tip ?Normal ?Normal ? This report has been electronically sign ed by: _ Nirmal Arroyo M.D. ? 10/30/2015 12:53:17 Images reviewed and interpretation verif ied [facility] Cardiac Ultrasound Laboratory Procedure Note Nirmal Arroyo MD - 10/30/2015Format ting of this note might be different from the original. Procedure: Stress Echocardiogram Patient: YEIMI TORRES(Age): [birth year](54y) Med Rec#: [id number] Sex: M Site Loc: [facility] Ht / Wt: 177(cm)/95.01(k Pt. Loc: Echo Lab BSA: 2.12 Study Date: 10/30/2015 Pt. Type: Tape: Referring: ADOLFO ANTONIO Referring: Adolfo Antonio Reading: Nirmal Arroyo ([id number]) Technical Service Specialist: Grady Orosco Car Builder: Milagros Duke Interpreting Fellow: Gregor Schwarz ([id number]) Interpreting Fellow: Madan Hu ([id number]) Interpreting Fellow: Albino Rice ([id number] ) Diagnosis: *ICD-10-PCS Shortness of breath (R06.02 ) *ICD-10-PCS Other chest pain (R07.89) CPT Codes: *Stress Echo (48355) *Color Doppler (53224) *Doppler LTD (25101) *ECG Interpretation (28282) *Definity (01857RB) Stage BP HR Rest 166/80 86 Peak 200/100 171 Recovery 130/90 96 SUMMARY: 1. BASELINE: Normal global and segmental biventricular systolic function with an estimated left ventricular eject ion fraction of 55%. No hemodynamically significant valve diseas e. 2. STRESS: The patient exercised on a tr eadmill for a total of 9:41 min achieving a peak heart rate of 171 bpm, (103 % max predicted). With stress he experienced mild chest pain th at resolved in recovery. He was hemodynamically stable, had no arrhythmi as and developed no significant ST-TW changes. 3. ECHOCARDIOGRAPHIC FINDINGS: LV functi on augments normally at peak stress. 4. IMPRESSION: Normal exercise echocardi ogram. There is no echocardiographic evidence of ischemia a t this diagnostic level of stress. Findings Rest: Left Ventricle: The left ventricle is pr obably normal in size. There is normal global left ventricular systolic function. Ejection fraction is estimated to be 55%. There are left ventricular segmental wa ll motion abnormalities present, as shown in the diagram below. Right Ventricle: The right ventricle is probably normal in size. Right ventricular global systolic funct ion is probably normal. Pulmonary artery hypertension could not be assessed due to inadequate tricuspid regurgitation jet. Aortic Valve: The aortic valve is trilea flet. The leaflets are thin with normal excursion. There is no aorti c stenosis or regurgitation present. Mitral Valve: The mitral valve appears n ormal in structure and function. There is trace mitral regurgitation pre sent. Tricuspid Valve: The tricuspid valve mayra ears normal in structure and function. There is trace tricuspid regurgitation present. Pericardium: The pericardium appears nor mal and there is no evidence of a pericardial effusion. Stress: EKG: normal sinus rhythm. The patient's oxygen saturation was 98% Misc: Other echo and stress findings as noted in report. A 20 gauge heplock was placed. An IV was placed in the patient's left arm. Definity contrast (one 1.5 ml vial)was used to enhance endocardial definition. Excess contrast was discarde d. Stress echo, limited spectral Doppler, color Doppler and ECG interpretation performed. Findings Peak: Predicted Values:The patient achieved a maximum heart rate of 171 which is 104% of the maximum predicted heart r ate (165 beats/min). The target heart rate was achieved. Left Ventricle: The mid anterolateral wa ll segment deteriorated. Overall wallmotion score index is 1.06 Stress: Patient followed a Guero protoco l. The patient exercised into stage 4. The total exercise duration was:9:41 The study was terminated because of fat igue. The patient expressed feelings of chest discomfort. Patient expressed a 5/10 sub sternal, non-radiat ing, dull ache. this resolved in recovery. The blood pressure response was hyperte nsive. Exercise capacity was good. The patient achieved a level of 11 METS .(11.2) There were no arrhythmias. There were no significant ST segment ch anges. This was a negative electrocardiographi c stress test for ischemia. EKG: sinus tachycardia. The patient's oxygen saturation was 97% Findings Recovery: Misc: The heplock was discontinued. The IV site is dry and intact with no h ematoma. Chambers 2D Value Units (Range) Ascending Ao 3.1 cm (2 - 3.5) Diastolic/Systolic Function Value Units (Range) MV E-wave Vmax 0.5 m/sec MV deceleration [id number] msec MV A-wave Vmax 0.6 m/sec MV E:A ratio 0.8 ratio LV septal e' Vmax 0.1 m/sec LV E:e' septal ratio9.3 ratio Wall Motion: Segment Name Rest Peak Base-Anteroseptal Normal Normal Base-Anterior Normal Normal Base-Anterolateral Normal Normal Base-Posterolateral Normal Normal Base-Inferior Normal Normal Base-Inferoseptal Normal Normal Mid-Anteroseptal Normal Normal Mid-Anterior Normal Normal Mid-Anterolateral Normal Hypokinetic Mid-Posterolateral Normal Normal Mid-Inferior Normal Normal Mid-Inferoseptal Normal Normal Hector-Septal Normal Normal Hector-Anterior Normal Normal Hector-Lateral Normal Normal Hector-Inferior Normal Normal Hector-Tip Normal Normal This report has been electronically sign ed by: _ Nirmal Arroyo M.D. 10/30/2015 12:53: 17 Images reviewed and interpretation verif ied [facility] Cardiac Ultrasound Laboratory Adolfo Antonio MD ECHO ORDERABLES Performing Organization Address City/State/ZIP Code Phon e Number HEARTLAB SYSTEM documented in this encounter Visit Diagnoses Diagnosis Chest discomfort Other chest pain SOB (shortness of breath) Shortness of breath Atypical chest pain Other chest pain documented in this encounter Administered Medications Inactive Administered Medications - up to 3 most recent administrations Medication Order MAR Action Action Date Dose Rate Site perflutren lipid microspheres Given 10/30/2015 11:40 AM EDT 1.1 mLs (DEFINITY) injection 1.1 mL 1.1 mL (rounded from 1.05 mL), Intravenous, ONCE PRN, 1 dose, Starting on Lise 10/30/15 at 1211, Until Lise 10/30/15 at 1140, Other, for enhancement of sub-optimal echo images, Echo Lab (Intra-Procedure), Routine documented in this encounter Care Teams Industrial Property Appraiser Relationship Specialty Start Date End Date Ralph Ellison MD PCP - General General Internal Medicine 09/05/15 7 [address] [place] [address] documented as of this encounter
--- OUTSIDE RECORDS SUMMARY | 2022-02-05 01:59 | XMS_ITS | Encounter Summary ---
:1960 Author Organization [facility] [place] [address] Care Team Providers Name Role Phone Keo Orozco APRN Primary Care Provider Encounter Details Date Type Department Care Team Description 06/21/2011 Follow-Up BullRamirez Toledo MD [address] [place] [id number] [place] [address] [phone] (Wo rk) Social History Tobacco Use Types Packs/Day Years Used Date Never Assessed Sex Assigned at Date Recorded Not on file documented as of this encounter Plan of Treatment Not on filedocumented as of this encounter Visit Diagnoses Not on filedocumented in this encounter Care Teams Healthcare Technician Relationship Specialty Start Date End Date Keo Orozco APRN PCP - General 09/30/10 09/29/11 [address] [place] [address] documented as of this encounter
--- OUTSIDE RECORDS SUMMARY | 2022-02-05 01:59 | XMS_ITS | Encounter Summary ---
:1960 Author Organization [facility] [place] [address] Care Team Providers Name Role Phone Aftab Coles MD, Dom Conrad Primary Care Provider Encounter Details Date Type Department Care Team Description 08/21/2010 Procedure visit [address] [address] Social History Tobacco Use Types Packs/Day Years Used Date Never Assessed Sex Assigned at Date Recorded Not on file documented as of this encounter Plan of Treatment Not on filedocumented as of this encounter Visit Diagnoses Not on filedocumented in this encounter Care Teams Contact Center Consultant Relationship Specialty Start Date End Date Dom Ugalde Jr., MD PCP - General 08/11/10 09/03/10 [place] [address] documented as of this encounter
--- OUTSIDE RECORDS SUMMARY | 2022-02-05 01:59 | XMS_ITS | Encounter Summary ---
:1960 Author Organization [facility] [place] [address] Care Team Providers Name Role Phone Dom Kennedy MD Primary Care Provider Encounter Details Date Type Department Care Team Description 01/04/2012 Abstract [facility] Provider, His Boy cavazos MD [facility] Health Information Services [address] [place] [phone] Social History Tobacco Use Types Packs/Day Years Used Date Never Assessed Sex Assigned at Date Recorded Not on file documented as of this encounter Plan of Treatment Not on filedocumented as of this encounter Procedures Procedure Name Priority Date/Time Associated Diagnosis Comme nts PSA Routine 01/04/2012 3:00 PM Results f or this (ULTRASENSITIVE) EDT procedure a re in the results section. documented in this encounter Results (ABNORMAL) PSA (01/04/2012 3:00 PM EDT) athologist Signature PSA Total 0.80 0.00 - 4.0 [facility] (External ng/ml RESULT Lab) CONVERSION Comment: Sourced from [facility]ol[facility] Jeter Conversion Specimen (Source) Anatomical Collection Method Collection Time Re ceived Time Location / / Volume Laterality 01/04/2012 3:00 PM EDT His Bull Provider CHEMISTRY ORDERABLES Performing Organization Address City/State/ZIP Code Phon e Number [facility]OL[facility]DE JETER CONVERSION [facility] RESULT CONVERSION documented in this encounter Visit Diagnoses Not on filedocumented in this encounter Care Teams Box Attacher Relationship Specialty Start Date End Date Dom Kennedy MD PCP - General 12/28/16 [address] [place] [address] documented as of this encounter
--- OUTSIDE RECORDS SUMMARY | 2022-02-05 01:59 | XMS_ITS | Encounter Summary ---
:1960 Author Organization [facility] [place] [address] Care Team Providers Name Role Phone Keo Orozco APRN Primary Care Provider Encounter Details Date Type Department Care Team Description 02/19/2011 Procedure visit [facility] Radiology, [address] [phone] Social History Tobacco Use Types Packs/Day Years Used Date Never Assessed Sex Assigned at Date Recorded Not on file documented as of this encounter Plan of Treatment Not on filedocumented as of this encounter Visit Diagnoses Not on filedocumented in this encounter Care Teams Element Setter Relationship Specialty Start Date End Date Keo Orozco APRN PCP - General 09/30/10 09/29/11 [address] [place] [address] documented as of this encounter
--- OUTSIDE RECORDS SUMMARY | 2022-02-05 01:59 | XMS_ITS | Encounter Summary ---
:1960 Author Organization [facility] [place] [address] Care Team Providers Name Role Phone Keo Orozco APRN Primary Care Provider Encounter Details Date Type Department Care Team Description 03/18/2011 Office Visit Lorene Gray, RD [address] [facility] [facility] [address] [place] [phone] [facility] [phone] [place] [address] Social History Tobacco Use Types Packs/Day Years Used Date Never Assessed Sex Assigned at Date Recorded Not on file documented as of this encounter Plan of Treatment Not on filedocumented as of this encounter Visit Diagnoses Not on filedocumented in this encounter Care Teams Inner Tube Cutter Relationship Specialty Start Date End Date Keo Orozco APRN PCP - General 09/30/10 09/29/11 [address] [place] [address] documented as of this encounter
--- OUTSIDE RECORDS SUMMARY | 2022-02-05 01:59 | XMS_ITS | Encounter Summary ---
:1960 Author Organization [facility] [place] [address] Care Team Providers Name Role Phone Dom Kennedy MD Primary Care Provider Encounter Details Date Type Department Care Team Description 08/21/2010 Abstract [facility] Provider, His Boy cavazos MD [facility] Health Information Services [address] [place] [phone] Social History Tobacco Use Types Packs/Day Years Used Date Never Assessed Sex Assigned at Date Recorded Not on file documented as of this encounter Plan of Treatment Not on filedocumented as of this encounter Procedures Procedure Name Priority Date/Time Associated Diagnosis Comme nts External Diabetes Routine 08/17/2011 5:11 PM Resu lts for this Eye Exam EST procedure are i n the results section. TSH Routine 08/21/2010 10:52 AM Results for this EST procedure are i n the results section. documented in this encounter Results (ABNORMAL) Diabetes External Eye Exam (08/17/2011 5:11 PM EST) [facility] gist Method Time Signature External DM 08/17/2011 [facility] Eye Exam 5:11:20 PM; RESULT See [employer] CONVERSION [employer] system for full report (External Lab) Comment: Sourced from [facility]lie[facility] Con version Anatomical Region Laterality Modality Other Specimen (Source) Anatomical Collection Method Collection Time Re ceived Time Location / / Volume Laterality 08/17/2011 5:11 PM EST His Steffany Provider OPHTHALMOLOGY [facility] [place] (ABNORMAL) TSH (08/21/2010 10:52 AM EST) P athologist Signature TSH 2.88 0.30 - 5.5 [facility] (External uIU/mL RESULT Lab) CONVERSION Comment: Sourced from [facility]ol[facility] Gottlieb Conversion Specimen (Source) Anatomical Collection Method Collection Time Re ceived Time Location / / Volume Laterality 08/21/2010 10:52 AM EST His Steffany Provider CHEMISTRY ORDERABLES Performing Organization Address City/State/ZIP Code Phon e Number [facility] STEFFANY CONVERSION [facility] RESULT CONVERSION documented in this encounter Visit Diagnoses Not on filedocumented in this encounter Care Teams Automotive Parts Person Relationship Specialty Start Date End Date Dom Kennedy MD PCP - General 12/28/16 [address] [place] [phone] documented as of this encounter
--- OUTSIDE RECORDS SUMMARY | 2022-02-05 01:59 | XMS_ITS | Encounter Summary ---
:1960 Author Organization [facility] [place] [address] Care Team Providers Name Role Phone Keo Orozco APRN Primary Care Provider Encounter Details Date Type Department Care Team Description 02/26/2011 Follow-Up BullRamirez Toledo MD [address] [place] [phone] [place] [address] [phone] (Wo rk) Social History Tobacco Use Types Packs/Day Years Used Date Never Assessed Sex Assigned at Date Recorded Not on file documented as of this encounter Plan of Treatment Not on filedocumented as of this encounter Visit Diagnoses Not on filedocumented in this encounter Care Teams Group Exercise Manager Relationship Specialty Start Date End Date Keo Orozco APRN PCP - General 09/30/10 09/29/11 [address] [place] [address] documented as of this encounter
--- OUTSIDE RECORDS SUMMARY | 2022-02-05 01:59 | XMS_ITS | Encounter Summary ---
:1960 Author Organization [facility] [place] [address] Care Team Providers Name Role Phone Michael Mims MD Primary Care Provider [phone] Encounter Details Date Type Department Care Team Description 04/05/2012 Office Visit Bull David Bradley, PhD [address] [place] [phone] [place] [address] [phone] (Wo rk) Social History Tobacco Use Types Packs/Day Years Used Date Never Assessed Sex Assigned at Date Recorded Not on file documented as of this encounter Plan of Treatment Not on filedocumented as of this encounter Visit Diagnoses Not on filedocumented in this encounter Care Teams Diesel Mechanic Farm Relationship Specialty Start Date End Date Michael Mims MD PCP - General 10/11/11 03/21/14 [address] [place] [address] documented as of this encounter
--- OUTSIDE RECORDS SUMMARY | 2022-02-05 01:59 | XMS_ITS | Encounter Summary ---
:1960 Author Organization [facility] [place] [address] Care Team Providers Name Role Phone Aftab Coles MD, Dom Conrad Primary Care Provider Encounter Details Date Type Department Care Team Description 08/21/2010 Procedure visit [facility] Ramirez Ahuja MD [address] [place] [address] [place] [address] [phone] (Wo rk) Social History Tobacco Use Types Packs/Day Years Used Date Never Assessed Sex Assigned at Date Recorded Not on file documented as of this encounter Plan of Treatment Not on filedocumented as of this encounter Visit Diagnoses Not on filedocumented in this encounter Care Teams Hl7 Developer Relationship Specialty Start Date End Date Dom Ugalde Jr., MD PCP - General 08/11/10 09/03/[address] [place] [address] documented as of this encounter
--- OUTSIDE RECORDS SUMMARY | 2022-02-05 01:59 | XMS_ITS | Encounter Summary ---
:1960 Author Organization [facility] [address] Care Team Providers Name Role Phone Michael Mims MD Primary Care Provider [phone] Encounter Details Date Type Department Care Team Description 12/10/2011 Laboratory Appointment [address] [address] Social History Tobacco Use Types Packs/Day Years Used Date Never Assessed Sex Assigned at Date Recorded Not on file documented as of this encounter Plan of Treatment Not on filedocumented as of this encounter Visit Diagnoses Not on filedocumented in this encounter Care Teams Public Speaking Professor Relationship Specialty Start Date End Date Michael Mims MD PCP - General 10/11/11 03/21/14 [address] [place] [address] documented as of this encounter
--- OUTSIDE RECORDS SUMMARY | 2022-02-05 01:59 | XMS_ITS | Encounter Summary ---
:1960 Author Organization [place] [address] Care Team Providers Name Role Phone Keo Orozco APRN Primary Care Provider Encounter Details Date Type Department Care Team Description 12/03/2010 Office Visit [address] [address] Social History Tobacco Use Types Packs/Day Years Used Date Never Assessed Sex Assigned at Date Recorded Not on file documented as of this encounter Plan of Treatment Not on filedocumented as of this encounter Visit Diagnoses Not on filedocumented in this encounter Care Teams Copy Writer Relationship Specialty Start Date End Date Keo Orozco APRN PCP - General 09/30/10 09/29/[address] [place] [address] documented as of this encounter
--- OUTSIDE RECORDS SUMMARY | 2022-02-05 01:59 | XMS_ITS | Encounter Summary ---
:1960 Author Organization [facility] [place] [address] Care Team Providers Name Role Phone Michael Mims MD Primary Care Provider [phone] Encounter Details Date Type Department Care Team Description 03/22/2014 Follow-Up Janie Ibarra PA [address] [place] [address] [place] [address] [phone] (Wo rk) Social History Tobacco Use Types Packs/Day Years Used Date Never Assessed Sex Assigned at Date Recorded Not on file documented as of this encounter Plan of Treatment Not on filedocumented as of this encounter Visit Diagnoses Not on filedocumented in this encounter Care Teams Cherry Cutter Relationship Specialty Start Date End Date Michael Mims MD PCP - General 03/22/14 05/28/14 [address] [place] [address] documented as of this encounter
--- OUTSIDE RECORDS SUMMARY | 2022-02-05 01:59 | XMS_ITS | Encounter Summary ---
:1960 Author Organization [facility] [place] [address] Care Team Providers Name Role Phone Dom Kennedy MD Primary Care Provider Encounter Details Date Type Department Care Team Description 12/05/2015 Abstract [facility] Provider, His Boy cavazos MD [facility] Health Information Services [address] [place] [phone] Social History Tobacco Use Types Packs/Day Years Used Date Never Smoker Smokeless Tobacco: Never Used Sex Assigned at Date Recorded Not on file documented as of this encounter Last Filed Vital Signs Vital Sign Reading Time Taken Comments Blood Pressure 132/90 12/05/2015 10:00 Sourced from Ke tara AM EDT Conversion Pulse 72 12/05/2015 10:00 Sourced from Ke tara AM EDT Conversion Temperature - - Respiratory Rate - - Oxygen Saturation - - Inhaled Oxygen - - Concentration Weight 97.2 kg (214 lb 6 12/05/2015 10:00 Sourced from Bull oz) AM EDT Conversion Height 175.3 cm (5' 9) 12/05/2015 10:00 Sourced from Nubia spaulding AM EDT Conversion Body Mass Index 31.66 12/05/2015 10:00 AM EDT documented in this encounter Plan of Treatment Not on filedocumented as of this encounter Visit Diagnoses Not on filedocumented in this encounter Care Teams Citizenship Instructor Relationship Specialty Start Date End Date Dom Kennedy MD PCP - General 12/28/[address] [place] [phone] documented as of this encounter
--- OUTSIDE RECORDS SUMMARY | 2022-02-05 01:59 | XMS_ITS | Encounter Summary ---
:1960 Author Organization [facility] [place] [address] Care Team Providers Name Role Phone Dom Kennedy MD Primary Care Provider Encounter Details Date Type Department Care Team Description 11/10/2012 Abstract [facility] Provider, His Boy cavazos MD [facility] Health Information Services [address] [place] [phone] Social History Tobacco Use Types Packs/Day Years Used Date Never Assessed Sex Assigned at Date Recorded Not on file documented as of this encounter Last Filed Vital Signs Vital Sign Reading Time Taken Comments Blood Pressure - - Pulse - - Temperature - - Respiratory Rate - - Oxygen Saturation - - Inhaled Oxygen - - Concentration Weight 98.5 kg (217 lb 3.2 11/10/2012 10:45 Sourced fro steven Gottlieb oz) AM EDT Conversion Height 175.3 cm (5' 9) 11/10/2012 10:45 Sourced from Nubia spaulding AM EDT Conversion Body Mass Index 32.07 11/10/2012 10:45 AM EDT documented in this encounter Plan of Treatment Not on filedocumented as of this encounter Visit Diagnoses Not on filedocumented in this encounter Care Teams Rn Bariatric Relationship Specialty Start Date End Date Dom Kennedy MD PCP - General 12/28/16 [place] [phone] documented as of this encounter
--- OUTSIDE RECORDS SUMMARY | 2022-02-05 01:59 | XMS_ITS | Encounter Summary ---
:1960 Author Organization [facility] [place] [address] Care Team Providers Name Role Phone Dom Kennedy MD Primary Care Provider Encounter Details Date Type Department Care Team Description 08/21/2010 Abstract [facility] Provider, His Boy cavazos MD [facility] Health Information Services [address] [place] [phone] Social History Tobacco Use Types Packs/Day Years Used Date Never Assessed Sex Assigned at Date Recorded Not on file documented as of this encounter Plan of Treatment Not on filedocumented as of this encounter Procedures Procedure Name Priority Date/Time Associated Diagnosis Comme nts PSA Routine 08/21/2010 10:52 AM Results for this (ULTRASENSITIVE) EST procedure a re in the results section. documented in this encounter Results (ABNORMAL) PSA (08/21/2010 10:52 AM EST) P athologist Signature PSA Total 0.42 0.00 - 4.0 [facility] (External ng/ml RESULT Lab) CONVERSION Comment: Sourced from Yolande Jeter Conversion Specimen (Source) Anatomical Collection Method Collection Time Re ceived Time Location / / Volume Laterality 08/21/2010 10:52 AM EST His Bull Provider CHEMISTRY ORDERABLES Performing Organization Address City/State/ZIP Code Phon e Number [facility]ETER CONVERSION [facility] RESULT CONVERSION documented in this encounter Visit Diagnoses Not on filedocumented in this encounter Care Teams Newspaper Stuffer Relationship Specialty Start Date End Date Dom Kennedy MD PCP - General 12/28/16 [place] [address] documented as of this encounter
--- OUTSIDE RECORDS SUMMARY | 2022-02-05 01:59 | XMS_ITS | Encounter Summary ---
:1960 Author Organization [facility] [place] [address] Care Team Providers Name Role Phone Dom Kennedy MD Primary Care Provider Encounter Details Date Type Department Care Team Description 07/22/2020 [place] [address] Social History Tobacco Use Types Packs/Day Years Used Date Never Smoker Smokeless Tobacco: Never Used Sex Assigned at Date Recorded Not on file documented as of this encounter Medications at Time of Discharge Medication Sig Dispensed Refills Start Date End Date tamsulosin (Flomax) 0.4 Take 2 capsules by 180 tablet 3 05/15 mg Capsule mouth daily. amLODIPine (Norvasc) 2.5 TAKE ONE TABLET BY 0 mg Tablet MOUTH EVERY DAY FOR BLOOD PRESSURE meloxicam (MOBIC) 15 mg TAKE ONE TABLET BY 0 04/16 Tablet MOUTH EVERY DAY WITH FOOD NEEDED FOR BACK PAIN. atorvastatin (LIPITOR) 20 Take 20 mg by [...] mouth daily. Release 24 hr montelukast (SINGULAIR) Take 10 mg by mouth 0 10 mg Tablet daily. BD REGULAR BEVEL NEEDLES 0 09/02/2015 19 x 1 1/2 Needle BD INSULIN PEN NEEDLE UF 0 08/09/2015 MINI 31 gauge x 3/16 Needle VIAGRA 100 mg Tablet 100 mg as needed. 0 08/21/19 16 testosterone cypionate once a week. 0 08/11/2015 (DEPOTESTOSTERONE CYPIONATE) 200 mg/mL Oil Bydureon BCise 2 mg/0.85 0 05/26/2020 01/29/2021 mL Auto-Injector nortriptyline (Pamelor) TAKE ONE CAPSULE BY 0 01/29/2021 25 mg Capsule MOUTH AT BEDTIME FOR PAIN aspirin 81 mg Tablet, Take 1 tablet by 30 tablet 3 09/11/19 16 09/08/2020 Delayed Release (E.C.) mouth daily. documented as of this encounter Plan of Treatment Not on filedocumented as of this encounter Procedures Procedure Name Priority Date/Time Associated Diagnosis Comme nts COVID-19 PCR Routine 07/22/2020 4:35 PM Results f or this EST procedure are i n the results section . documented in this encounter Results COVID-19 PCR (07/22/2020 4:35 PM EST) [facility] Method Time Signature SARS-CoV-2 Not Detected Not Detected [facility] Comment: This result should be interpreted in com bination with the clinical observations, patient history and epidem iological information in making a final diagnosis. For testing of asymptomatic i ndividuals, assay performance characteristics and clinical utility hav e not been evaluated. Testing for SARS-CoV-2 (Severe acute respiratory syn drome coronavirus 2, formerly known as 2019 novel coronavirus or 2019-nCoV) to aid in the diagnosis of COVID-19 is performed using the [employer] RealTime SARS -CoV-2 Assay as authorized by the FDA Emergency Use Authorization (EUA). This EUA assay is intended for In-vitro Diagnostic (IVD) use with respiratory sp ecimens such as nasopharyngeal swabs collected from individuals during the ac magdalena phase of infection. This assay is performed based on the instructions for use provided by [employer] and additional guidance provided by CDC and FDA. Testing is performed in the [facility] within the Department of Pathology and Laboratory Medicine at [facility], certified under the Clinical Laboratory Improvement Amendments of 1988 (CLIA), 42 U.S.C. 263a, to perform high complexi ty tests. Assay performance has been verified according to clinical laborator y regulatory requirements for use with specimens collected from individuals danelle pected of COVID-19. Test results are provided above. A result of ? Not Detected? indicates that the viral RNA target is not present above the limit of detect ion, but does not preclude SARS-CoV-2 infection. False negative results may oc cur if a specimen is improperly collected, transported or handled; if am plification inhibitors are present; or if inadequate numbers of viral particles are present in the specimen. When a diagnostic test is negative, the possibi lity of a false negative result should be considered in the context of a patien t? s recent exposures and the presence of clinical signs and symptoms consisten t with COVID-19. A result of ? Detected? indicates that RNA from SARS-CoV-2 was d etected and the patient is infected. As required or requested by public health a uthorities, positive specimens may be sent for additional testing. Positive an d negative predictive values for this test are highly dependent on disease pre valence. A result of ? Invalid? indicates that neither the viral RNA tar gets nor the internal control target was detected. An invalid result suggests the presence of inhibitors. Recollection and re-testing is recommend ed in the case of an invalid result. CDC COVID-19 criteria for testing on hum an specimens and clinical management guidance information are available at e CDC Coronavirus Disease 2019 (COVID-19) webpage under ? Information for Healthcare Professionals? (https://www.cdc.gov/coronavirus/2019-nc ov/hcp/index.html) Additional information about this and ot her EUA tests can be found in provider and patient fact sheets at the following FDA website: https://www.fda.gov/medical-devices/zbwwyhedvkm-tsrkmvv-4179-hgpzg-22-bdeujetex- kxt-jhlkkexwhikbdq-mdxajil-devices/dmecd-fwdvptajmwf-ztql SARS-Cov-2 RNA Source Nasal [facility] Specimen Anatomical Collection Method Collection Time Receive d Time (Source) Location / / Volume Laterality Specimen from Other / Unknown 07/22/2020 4:35 PM 07/22 nose (specimen) EST 11:24 PM EST Resulting Agency Comment Spec In Lab Chantel Mcgee MD MICROBIOLOGY - GENERAL [place] Performing Organization Address City/State/ZIP Code Phon e Number [place] [phone] documented in this encounter Visit Diagnoses Not on filedocumented in this encounter Care Teams Cracker Sprayer Relationship Specialty Start Date End Date Dom Kennedy MD PCP - General 12/28/16 [address] [place] [phone] documented as of this encounter
--- OUTSIDE RECORDS SUMMARY | 2022-02-05 01:59 | XMS_ITS | Encounter Summary ---
:1960 Author Organization [facility] [place] [address] Care Team Providers Name Role Phone Dom Kennedy MD Primary Care Provider Reason for Visit Consultation (Routine) - Closed Specialty Diagnoses / Procedures Referred By Contact Refer red To Contact Urology Diagnoses GROSS HEMATURIA Dom Kennedy MD [facility] [address] [place] [id number] Referral ID Status Reason Start Date Expiration Date Visits Requ ested Visits Authorized [id number] Closed 05/13/2020 05/13/2021 1 1 Encounter Details Date Type Department Care Team Description 05/28/2020 Office [place] [facility] Hickman Gross hematuria [facility] MD [place] [facility] [address] UROLOGY DEPT. [phone] [place], [place] [address] (Wo rk) Social History Tobacco Use Types Packs/Day Years Used Date Never Smoker Smokeless Tobacco: Never Used Sex Assigned at Date Recorded Not on file documented as of this encounter Last Filed Vital Signs Vital Sign Reading Time Taken Comments Blood Pressure 121/80 05/28/2020 9:06 AM EDT Pulse 98 05/28/2020 9:06 AM EDT Temperature - - Respiratory Rate - - Oxygen Saturation - - Inhaled Oxygen Concentration - - Weight - - Height - - Body Mass Index - - documented in this encounter Patient Instructions Patient InstructionsEstrella Hickman MD - 05/28/2020 8:00 AM EDT Aim to drink 64 - 80 oz of fluid daily. Most of this should be water. Milk or lemonade is fine. Stop4 hr prior to bedtime. Stay away from coffee, tea, cola. You should aim for 6 - 8 oz of caffinated drink only Take flomax 0.4 - 2 pills daily documented in this encounter Progress Notes Estrella Hickman MD - 05/28/2020 8:00 AM EDT Reason for Visit: This is a 59 y.o. male seen at the request of Dom Kennedy MD for Gross hematuria. The hematuria was seen on many occasions on one day in early Apr. He had pain in his penis and was voiding q 15 min. It was accompanied by small clots. He was seen by Dom Kennedy MD who advised him to take Pyridium. His UA at that time showed a large amount of hemolyzed blood. Referred him to Nadege Gaona NP at [facility]. He had the following tests and or treatments: PVR 50 cc IPSS 28 out of 35 On physical exam there is thought to have an enlarged but nontender and not nodular prostate. He had a dipstick UA that by report showed no blood. Nadege had discussed with him a cystoscopy which according to her notes the patient wanted done in the OR. And had also discussed about the possibility that the blood might be coming from his prostate and that long-term he may be helped with Proscar. The patient had had a PSA earlier in the year and it was 1.4 ng/ml. I do not have the date of this test. He has been on flomax for the last few months. He isn't sure it makes a difference. CT scan performed 05/01/2020 showed no evidence of any calcification. There was symmetric enhancementof both kidneys with prompt excretion. The bladder wall was thick and prostatic enlargement was noted to indent the bladder floor. I have reviewed these films and agree with the read. Although the bladder wall is somewhat thick thebladder is not terribly distended on these films. This past TuesdayMay 23 he again had frequency q 15 min but no bleeding. He is generally up 4 times at night. He voids q 2hr or more during the day. He drinks diet snapple peach - 64 - 100 oz , some water - 1 qt. He stops drinking at 7-8 - bed at 10. He has a glass of iced tea/milk at bedtime . Risk Factors: He has not had renal/ureteral stones in the past. He has not smoked in the past, He does not have occupational exposure to carcinogens. He has not travelled to any shistosomiasis endemic areas of the world. GENERAL HEALTH: good REVIEW OF SYSTEMS: Negative. 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 No claudication. 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 FAMILY HISTORY: negative for stones, renal/bladder or prostate cancer Past Surgical History: Lap band 8 yr ago - lost 70-80 lb Varicocelectomy Past Medical History: hypercholesteral Diabetes PHYSICAL EXAM: Vital signs normal - see Data Flow Sheet Oriented to person, place and time. * Healthy appearance. Color normal. No significant skin lesions. * Abdomen benign without masses, rebound, guarding, or tenderness. No hepatosplenomegaly. No CVA tenderness. * Genitalia: Scrotum - Color and texture normal; no masses. Testicles and epididymides without tenderness or masses. Penis - uncircumcised with orthotopic meatus; no masses or surface lesion. * Rectal: Anal tone - normal. No mucosal or extrarectal masses. Prostate - 30 gm, smooth,without nodules. CT UROGRAM: This was reviewed. There are no stones and no renal masses. There is prompt uptake and excretion of contrast. There is no obstruction. There is a middle lobe of prostate pushing into the bladder. U/A: negative for RBC, WBC + for glucose IMPRESSION: This is a 59 y.o. male with a history of gross hematuria with no risk factors for bladder cancer and a normal CT urogram, except for a thick walled bladder with a middle lobe that pushes into the bladder. He also has LUTS - primarily frequency PLAN: cystoscopy - he will return at 11 - see next note. For his LUTS Advised to make behavioral changes. See instructions Increase flomax to 0.8 mg documented in this encounter Plan of Treatment Not on filedocumented as of this encounter Visit Diagnoses Diagnosis Gross hematuria documented in this encounter Care Teams Post Doc Fellowship Relationship Specialty Start Date End Date Dom Kennedy MD PCP - General 12/28/16 [address] [place] [address] documented as of this encounter
--- OUTSIDE RECORDS SUMMARY | 2022-02-05 01:59 | XMS_ITS | Encounter Summary ---
:1960 Author Organization [facility] [place] [address] Care Team Providers Name Role Phone Dom Kennedy MD Primary Care Provider Reason for Visit Consultation (Routine) - Closed Specialty Diagnoses / Procedures Referred By Contact Refer red To Contact Endocrinology Diagnoses Type 2 diabetes mellitus without complications Essential (primary) hypertension Hyperlipidemia, unspecified Dom Kennedy MD Comi, Richard J, MD [address] [place] [address] [address] [place] END[place]CR[place]PT. [id number] [place] [address] Fax: Referral ID Status Reason Start Date Expiration Date Visits Requ ested Visits Authorized [id number] Closed 12/25/2020 12/25/2021 1 1 Encounter Details Date Type Department Care Team Description 01/29/2021 TH Visit Endocrinology at [facility] C Td Blanco, Type 2 diabetes (TeleHealth) [facility] mellitus with [facility], [place] [address] [place] [address] long-term current [phone] ENDOCRINOLOGY [place] [address] Social History Tobacco Use Types Packs/Day Years Used Date Never Smoker Smokeless Tobacco: Never Used Sex Assigned at Date Recorded Not on file documented as of this encounter Progress Notes Td Blanco MD - 01/29/2021 10:00 AM EDT Images from the original note were not included. We are seeing this 60 year old man referred by Oksana Ambriz as [facility] of the [facility]reach program Pre-visit notes: Patient Name: Bert Fox : 1960 Primary Care Provider: Dr. Dom Kennedy. . Date of Diabetes Diagnosis: ???around 2004?? Current Diabetes Regimen: ??? Metformin: 500mg am 500mg pm ??? Levemir: 40 units am ??? Bydureon Bcise 2mx/week on Tuesday Current Other Medications: ??? Tamsulosin HCL 0.4mx/day (however note says 1x/day) ??? Amlodipine Besylate 2.5mx/day for BP ??? Lisinopril 20mx/day o Pt says he did not have high BP, but had issues with eating with esophagus so Lisinopril was prescribed. Then, had Lapband procedure r/t hernia so he has not has swallowing issues in 7 years. ??? Fluoxetine 40mx/day ??? Montelukast SOD 10mx/day ??? Testosterone Cypionate 200mg injection 2ml: Every 2 weeks Of note- passed out while on vacation. BP meds were reduced after that. Medications on his med list that he reports not taking: ??? Psyllium Fiber: BID with large glass of water ??? Triamcinolone Acetonidide 0.1% Ointment ??? Nortriptyline HCL 25mg cap: bedtime for pain ??? Atorvastatin 20mx/day pm ??? Viagra: as needed Diabetes Medications Previously tried or failed in the past (indicated if too expensive): ??? None, fear of cost after retiring. Weight and weight pattern for the past year: (Oksana insert GRAPH) Summary of diabetes labs and problem list: (Oksana insert CHART) Summary of Home Monitoring: Recent HGBA1c: (Oksana insert GRAPH) One Touch Ultra Glucometer: Average BG: ____mg/dL (7d), ____ mg/dL (14d), ____ mg/dL (30d - if available) 2-week glucometer report : does not test regularly Known complications: (Dr. Td Blanco will complete) Retinopathy status - none, background, requiring treatment Last Eye Appointment: Aug 2020, 1x/year [facility]. Early signs of cataracts. Neuropathy status - none, mild foot symptoms, severe symptoms - Pt says none Nephropathy status - normal, reduced function, dialysis, transplant Cardiac disease - none, treated, unstable Peripheral vascular disease- none, under evaluation, treated, amputee Other Information: Diet: Does not eat much. When eats poorly certain foods don't go down well. If food goes down, sometimes comes back up. 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 Diabetes Distress Scale: (OKSANA will insert) Dental: Sees dentist every 3 months, states he needs to floss more, [facility] Feet: No information CONSULTATION: DM x 15 years In had esophageal reflux 10 years ago had a lap band- weight dropped about 70 lbs, now steady x 2 years Regimen Oral medications: metformin 500 bid bydureon- not yet started Basal insulin levemire 40 Home glucose monitoring: Recommended frequency fbs today Results Recent HA1c 8.2 Episodes of hypoglycemia Warning signs: Frequency of self treated episodes Occasional dizzy spells, has passed out once- no documented lows Frequency of episodes needing assistance Dietary plan: 24 hour diet recall: Has to be careful Breakast skip AM snack Lunch skip Afternoon snack Cheese and crackers Dinner Scallops out Ice cream After dinner snack Exercise routine Preferred exercise Not much Frequency Limited by knees Diabetes complications review eyes No retinopathy feet No Abnormal shape No symptoms Foot ulcers: None prior foot ulcer active ulcer No Prior amputations Overall risk of foot problems Low Medium High Uses prescription Inserts Shoes kidneys none 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 Early satiety /nausea (gastroparesis) No Problems emptying bladder ?Unable to detect low sugars No Persistent rapid heartrate tachycardia cardiac No chest pain on exertion No shortness of breath on 1 flight of stairs No Shortness of breath at rest NO history of Cardiac stent Cardiac bypass surgery Congestive heart failure Peripheral vascular disease: Neck arteries (carotids) Leg arterieis Stroke Diabetes preventative services last eye exam: Aug 2020 last urine protein measurement last kidney function test (creatinine) last cholesterol panel: regular 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 The goal for his after 15 years of diabetes without a complication but with poor control in general is an HA1c under 8%, preferably under 7.5. I think this is attainable with his current lifestyle and one more medication. It is clear from his behavioral scores that he finds diabetes burdensome and from his history he has a lot of trouble with GERD, so I recommending we not use bydureon (another injection, an unwieldy device, risk of nausea) and minstead use jardiance plus his current regimen. He says his urine flow isnot a problem and he has not had UTI's. This also affords renal protectipon and a modicum of cardiacprotection He is interested in a donna sensor - I prescribed this but warned him it might not be covered in the absence of basal/bolus insulin His insurance is not covering levemire - will switch to glargine 40 units I sent script for the donna, glargine and Jardiance. He will follow up with his PCP who did a great job of helping him with lifestye change 2) history of lap band 3) history of leg hemangeoma, apparently recurring after resection [employer] Dates for 2020 _x__ consultation with primary care physician practice- 3 x a year _x__ consultation with endocrinology/epic beacon specialists- 1-2 times a year ___ consultation with wellness educator 2 times per year ___ consultation with diabetes dietitian 2 times per year This was a 40 min visit in total time for precharting, interview and counseling, review of outside labs as above, ordering labs and charting documented in this encounter Plan of Treatment Not on filedocumented as of this encounter Visit Diagnoses Diagnosis Type 2 diabetes mellitus with hyperglyce john, with long-term current use of insulin documented in this encounter Care Teams Rn Surgery Icu Relationship Specialty Start Date End Date oDm Kennedy MD PCP - General 12/28/16 [address] [facility] [place] [address] documented as of this encounter
--- OUTSIDE RECORDS SUMMARY | 2022-02-05 01:59 | XMS_ITS | Encounter Summary ---
:1960 Author Organization [facility] [place] [address] Care Team Providers Name Role Phone Ralph Ellison MD Primary Care Provider Encounter Details Date Type Department Care Team Description 12/05/2015 Office Visit General Surgery Keo Yarbrough MD [address] [place] [address] [place] [address] [phone] (Wo rk) Social History Tobacco Use Types Packs/Day Years Used Date Never Smoker Smokeless Tobacco: Never Used Sex Assigned at Date Recorded Not on file documented as of this encounter Plan of Treatment Not on filedocumented as of this encounter Visit Diagnoses Not on filedocumented in this encounter Care Teams Print Binding Worker Relationship Specialty Start Date End Date Ralph Ellison MD PCP - General General Internal Medicine 09/05/15 7 [address] [place] [address] documented as of this encounter
--- OUTSIDE RECORDS SUMMARY | 2022-02-05 01:59 | XMS_ITS | Encounter Summary ---
:1960 Author Organization [facility] [place] [address] Care Team Providers Name Role Phone Keo Orozco APRN Primary Care Provider Encounter Details Date Type Department Care Team Description 12/09/2010 Procedure visit [address] [address] Social History Tobacco Use Types Packs/Day Years Used Date Never Assessed Sex Assigned at Date Recorded Not on file documented as of this encounter Plan of Treatment Not on filedocumented as of this encounter Visit Diagnoses Not on filedocumented in this encounter Care Teams Unix Manager Relationship Specialty Start Date End Date Keo Orozco APRN PCP - General 09/30/10 09/29/[address] [place] [address] documented as of this encounter
--- OUTSIDE RECORDS SUMMARY | 2022-02-05 01:59 | XMS_ITS | Encounter Summary ---
:1960 Author Organization [facility] [place] [address] Care Team Providers Name Role Phone Dom Kennedy MD Primary Care Provider Encounter Details Date Type Department Care Team Description 09/02/2020 Telephone Urology at [facility] [place] [address] Social History Tobacco Use Types Packs/Day Years Used Date Never Smoker Smokeless Tobacco: Never Used Sex Assigned at Date Recorded Not on file documented as of this encounter Miscellaneous Notes Telephone Encounter - Ana Maria Medina LNA - 09/02/2020 10:00 AM EST Called patient to review allergies and medication. LVM letting him know there is no need to call us back, we will review them the day of. documented in this encounter Plan of Treatment Not on filedocumented as of this encounter Visit Diagnoses Not on filedocumented in this encounter Care Teams Warrant Server Relationship Specialty Start Date End Date Dom Kennedy MD PCP - General 12/28/16 [address] [place] [address] documented as of this encounter
--- OUTSIDE RECORDS SUMMARY | 2022-02-05 01:59 | XMS_ITS | Encounter Summary ---
:1960 Author Organization [facility] [place] [address] Care Team Providers Name Role Phone Michael Mims MD Primary Care Provider [phone] Encounter Details Date Type Department Care Team Description 12/15/2011 Follow-Up [facility] Ramirez Ahuja MD [address] [place] [address] [address] [place] [address] [place] [address] [phone] (Wo rk) Social History Tobacco Use Types Packs/Day Years Used Date Never Assessed Sex Assigned at Date Recorded Not on file documented as of this encounter Plan of Treatment Not on filedocumented as of this encounter Visit Diagnoses Not on filedocumented in this encounter Care Teams Market Sales Manager Relationship Specialty Start Date End Date Michael Mims MD PCP - General 10/11/11 03/21/[address] [place] [address] documented as of this encounter
--- OUTSIDE RECORDS SUMMARY | 2022-02-05 01:59 | XMS_ITS | Encounter Summary ---
:1960 Author Organization [facility] [place] [address] Care Team Providers Name Role Phone Aftab Coles MD, Dom Conrad Primary Care Provider Encounter Details Date Type Department Care Team Description 09/11/2010 Office Visit Gilbert Bijan Snyder, RASHEED [address] [place] [address] [place] [address] [phone] (Wo rk) Social History Tobacco Use Types Packs/Day Years Used Date Never Assessed Sex Assigned at Date Recorded Not on file documented as of this encounter Plan of Treatment Not on filedocumented as of this encounter Visit Diagnoses Not on filedocumented in this encounter Care Teams Global Marketing Coordinator Relationship Specialty Start Date End Date Dom Ugalde Jr., MD PCP - General 09/09/10 09/29/[address] [place] [address] documented as of this encounter
--- OUTSIDE RECORDS SUMMARY | 2022-02-05 01:59 | XMS_ITS | Encounter Summary ---
:1960 Author Organization [facility] [address] Care Team Providers Name Role Phone Keo Orozco APRN Primary Care Provider Encounter Details Date Type Department Care Team Description 12/21/2010 [facility] [facility] [place] [facility] [address] [place] [address] [place] [address] [phone] (Wo rk) Social History Tobacco Use Types Packs/Day Years Used Date Never Assessed Sex Assigned at Date Recorded Not on file documented as of this encounter Plan of Treatment Not on filedocumented as of this encounter Visit Diagnoses Not on filedocumented in this encounter Care Teams Functional Analyst Relationship Specialty Start Date End Date Keo Orozco APRN PCP - General 09/30/10 09/29/11 [address] [place] [address] documented as of this encounter
--- OUTSIDE RECORDS SUMMARY | 2022-02-05 01:59 | XMS_ITS | Encounter Summary ---
:1960 Author Organization [facility] [place] [address] Care Team Providers Name Role Phone Michael Mims MD Primary Care Provider [phone] Encounter Details Date Type Department Care Team Description 02/23/2012 Office Visit Bull David Bradley, PhD [address] [place] [address] [place] [address] [phone] (Wo rk) Social History Tobacco Use Types Packs/Day Years Used Date Never Assessed Sex Assigned at Date Recorded Not on file documented as of this encounter Plan of Treatment Not on filedocumented as of this encounter Visit Diagnoses Not on filedocumented in this encounter Care Teams Career Technical Counselor Relationship Specialty Start Date End Date Michael Mims MD PCP - General 10/11/11 03/21/14 [address] [place] [address] documented as of this encounter
--- OUTSIDE RECORDS SUMMARY | 2022-02-05 01:59 | XMS_ITS | Encounter Summary ---
:1960 Author Organization [facility] [place] [address] Care Team Providers Name Role Phone Keo Orozco APRN Primary Care Provider Encounter Details Date Type Department Care Team Description 02/11/2011 Follow-Up Ramirez Streeter MD [address] [place] [address] [place] [address] [phone] (Wo rk) Social History Tobacco Use Types Packs/Day Years Used Date Never Assessed Sex Assigned at Date Recorded Not on file documented as of this encounter Plan of Treatment Not on filedocumented as of this encounter Visit Diagnoses Not on filedocumented in this encounter Care Teams Collar Trimmer Relationship Specialty Start Date End Date Keo Orozco APRN PCP - General 09/30/10 09/29/11 [address] [place] [address] documented as of this encounter
--- OUTSIDE RECORDS SUMMARY | 2022-02-05 01:59 | XMS_ITS | Encounter Summary ---
:1960 Author Organization [facility] [place] [address] Care Team Providers Name Role Phone Keo Orozco APRN Primary Care Provider Encounter Details Date Type Department Care Team Description 03/19/2011 Follow-Up Ramirez Streeter MD [address] [place] [address] [place] [address] [phone] (Wo rk) Social History Tobacco Use Types Packs/Day Years Used Date Never Assessed Sex Assigned at Date Recorded Not on file documented as of this encounter Plan of Treatment Not on filedocumented as of this encounter Visit Diagnoses Not on filedocumented in this encounter Care Teams Automotive Quality Engineer Relationship Specialty Start Date End Date Keo Orozco APRN PCP - General 09/30/10 09/29/11 [address] [place] [address] documented as of this encounter
--- OUTSIDE RECORDS SUMMARY | 2022-02-05 01:59 | XMS_ITS | Encounter Summary ---
:1960 Author Organization [facility] [place] [address] Care Team Providers Name Role Phone Dom Kennedy MD Primary Care Provider Encounter Details Date Type Department Care Team Description 02/19/2011 Orders Only [facility] Zbigniew Orozco [facility] [address] [place] [address] [place] [address] [phone] Social History Tobacco Use Types Packs/Day Years Used Date Never Assessed Sex Assigned at Date Recorded Not on file documented as of this encounter Plan of Treatment Not on filedocumented as of this encounter Procedures Procedure Name Priority Date/Time Associated Diagnosis Comme nts XR KNEE AP LAT Routine 02/19/2011 3:39 PM Results for this AXIAL PATELLA BILAT EDT procedur e are in the results section. documented in this encounter Results XR Knee 3 Views Bilat (02/19/2011 3:39 PM EDT) Anatomical Region Laterality Modality Knee Bilateral Radiographic Imaging Specimen (Source) Anatomical Collection Method Collection Time Re ceived Time Location / / Volume Laterality 02/19/2011 3:39 PM EDT Narrative 02/22/2011 9:59 PM EDT External Results Connor Gottlieb Final Report EXAMINATION: ??DHK 8600 - KNEE (BILATERA L,3VWS) ?[id number] DIAGNOSIS: ?DHK X-RAY JOINT PAIN- LOWER LEG REASON: ? KNEE BILAT 3 VW RESULT: ? CLINICAL DATA: ?? Bilat eral knees IMPRESSION: ? FINDINGS: Left knee: ??There is minimal, if any, m edial joint space narrowing. ??There are moderate-sized quadriceps and patell ar tendon spurs. Right knee: ??On the right, a small amou nt of joint fluid is present. There is patellar tendon spur. INTERPRETING PHYSICIAN: ??LISSET FORTUNE M.D. ? TRANSCRIBED BY/DATE: ?? PM ??on 2010 10:07A ELECTRONICALLY AUTHORIZED BY: ?? LISSET FORTUNE M.D. ? Feb 22 2011 ??9:59P Procedure Note Lisset Fortune MD - 04/01/2017Formattin g of this note might be different from the original. External Results Connor Gottlieb Final Report EXAMINATION: DHK 8600 - KNEE (BILATERAL, 3VWS) [id number] DIAGNOSIS: DHK X-RAY JOINT PAIN-LOWER LE G REASON: KNEE BILAT 3 VW RESULT: CLINICAL DATA: Bilateral knees IMPRESSION: FINDINGS: Left knee: There is minimal, if any, med ial joint space narrowing. There are moderate-sized quadriceps and patell ar tendon spurs. Right knee: On the right, a small amount of joint fluid is present. There is patellar tendon spur. INTERPRETING PHYSICIAN: LISSET Lr TRANSCRIBED BY/DATE: PM on Feb 22 2011 10:07A ELECTRONICALLY AUTHORIZED BY: LISSET ALVA M.D. Feb 22 2011 9:59P Keo Orozco APRN IMG DX ORDERABLES documented in this encounter Visit Diagnoses Not on filedocumented in this encounter Care Teams Mechanical Shop Laborer Relationship Specialty Start Date End Date Dom Kennedy MD PCP - General 12/28/16 [address] [place] [id number] documented as of this encounter
--- OUTSIDE RECORDS SUMMARY | 2022-02-05 01:59 | XMS_ITS | Encounter Summary ---
:1960 Author Organization [place] [address] Care Team Providers Name Role Phone Dom Kennedy MD Primary Care Provider Encounter Details Date Type Department Care Team Description 12/16/2010 Orders Only [facility] Unknown [facility] [place] [address] Social History Tobacco Use Types Packs/Day Years Used Date Never Assessed Sex Assigned at Date Recorded Not on file documented as of this encounter Plan of Treatment Not on filedocumented as of this encounter Procedures Procedure Name Priority Date/Time Associated Diagnosis Comme nts CT CHEST W CONTRAST Routine 12/16/2010 12:04 PM R esults for this EDT procedure are i n the results section. documented in this encounter Results CT Chest w Contrast (12/16/2010 12:04 PM EDT) Anatomical Region Laterality Modality Chest Computed Tomography Specimen (Source) Anatomical Collection Method Collection Time Re ceived Time Location / / Volume Laterality 12/16/2010 12:04 PM EDT Narrative 12/18/2010 8:53 AM EDT External Results Connor Gottlieb Final Report EXAMINATION: ??CT ??7991 - CT CHEST W/CO NTRAST ??[id number] DIAGNOSIS: ?MORBID OBESITY, GERD, DIABETES REASON: ? elevated O2 demand/ Elevat ed HR RESULT: ? CT chest. ?? Date: ??11/23. Clinical history: ? Patient is a 49 year old male with possible PE. CT of the chest was acquired after injec tion of contrast. I do not see any evidence of pulmonary e mbolus on this examination. ??There is a small amount of pericardial air pre sent, certainly consistent with recent surgery and would not appear of a ks clinical concern. ??No pericardial effusion is seen. ??The patient does hav e significant atelectasis at the lung bases and trace bilateral pleural effusi ons and very poor inspiration. ??No endobronchial lesion is seen. IMPRESSION: 1. ? I do not see any evidence of pu lmonary embolus. 2. ? Poor inspiration and probably a s a result of that, significant bibasilar atelectasis. ??I suspect this patient's dyspnea may be due to poor inspiration and atelectasis rather than any other major pathology. 3. ? Trace air in the mediastinum li korina related to recent surgery and would not appear clinically relevant. 4. ? There is no pneumothorax. 5. ? Images of the upper abdomen are essentially unremarkable. ??The band appears to be in good position. 6. ? Patient does have a fatty liver and cholelithiasis as incidental findings. INTERPRETING PHYSICIAN: ??KEO HANSON M.Adeline ? TRANSCRIBED BY/DATE: ?? LS ??on M ??4 2010 ??1:05P ELECTRONICALLY AUTHORIZED BY: ?? KEO LATIF M.D. ? May ??6 2010 ??8:53A Procedure Note Keo Latif MD - 04/01/2017Format ting of this note might be different from the original. External Results Connor Gottlieb Final Report EXAMINATION: CT 7991 - CT CHEST W/[place] [id number] DIAGNOSIS: MORBID OBESITY, GERD, DIABETE S REASON: elevated O2 demand/ Elevated HR RESULT: CT chest. Date: 12/16/10. Clinical history: Patient is a 49 year o ld male with possible PE. CT of the chest was acquired after injec tion of contrast. I do not see any evidence of pulmonary e mbolus on this examination. There is a small amount of pericardial air pre sent, certainly consistent with recent surgery and would not appear of a ks clinical concern. No pericardial effusion is seen. The patient does have significant atelectasis at the lung bases and trace bilateral pleural effusi ons and very poor inspiration. No endobronchial lesion is seen. IMPRESSION: 1. I do not see any evidence of pulmonar y embolus. 2. Poor inspiration and probably as a re sult of that, significant bibasilar atelectasis. I suspect this serina hogue's dyspnea may be due to poor inspiration and atelectasis rather than any other major pathology. 3. Trace air in the mediastinum likely r elated to recent surgery and would not appear clinically relevant. 4. There is no pneumothorax. 5. Images of the upper abdomen are essen tially unremarkable. The band appears to be in good position. 6. Patient does have a fatty liver and c holelithiasis as incidental findings. INTERPRETING PHYSICIAN: KEO LATIF M.D. TRANSCRIBED BY/DATE: on Dec 16 2010 1 :05P ELECTRONICALLY AUTHORIZED BY: KEO LATFI M.D. Dec 18 2010 8:53A Unknown IMG CT ORDERABLES documented in this encounter Visit Diagnoses Not on filedocumented in this encounter Care Teams Websphere Architect Relationship Specialty Start Date End Date Dom Kennedy MD PCP - General 12/28/16 [address] [place] [phone] documented as of this encounter
--- OUTSIDE RECORDS SUMMARY | 2022-02-05 01:59 | XMS_ITS | Encounter Summary ---
:1960 Author Organization [facility] [place] [address] Care Team Providers Name Role Phone Dom Kennedy MD Primary Care Provider Encounter Details Date Type Department Care Team Description 03/22/2014 Abstract [facility] Provider, His Boy cavazos MD [facility] [address] [place] [phone] Social History Tobacco Use Types Packs/Day Years Used Date Never Assessed Sex Assigned at Date Recorded Not on file documented as of this encounter Last Filed Vital Signs Vital Sign Reading Time Taken Comments Blood Pressure - - Pulse - - Temperature - - Respiratory Rate - - Oxygen Saturation - - Inhaled Oxygen - - Concentration Weight 94.5 kg (208 lb 7 03/22/2014 1:00 Sourced from Nubia spaulding oz) PM EDT Conversion Height 175.3 cm (5' 9) 03/22/2014 1:00 Sourced from Ke tara PM EDT Conversion Body Mass Index 30.78 03/22/2014 1:00 PM EDT documented in this encounter Plan of Treatment Not on filedocumented as of this encounter Visit Diagnoses Not on filedocumented in this encounter Care Teams Diesel Power Mechanic Relationship Specialty Start Date End Date Dom Kennedy MD PCP - General 12/28/16 [place] [id number] documented as of this encounter
--- OUTSIDE RECORDS SUMMARY | 2022-02-05 01:59 | XMS_ITS | Encounter Summary ---
:1960 Author Organization [facility] [place] [address] Care Team Providers Name Role Phone Keo Orozco APRN Primary Care Provider Encounter Details Date Type Department Care Team Description 03/05/2011 Office Visit Damon Corona MD [address] [place] [phone] [place] [address] [phone] (Wo rk) Social History Tobacco Use Types Packs/Day Years Used Date Never Assessed Sex Assigned at Date Recorded Not on file documented as of this encounter Plan of Treatment Not on filedocumented as of this encounter Visit Diagnoses Not on filedocumented in this encounter Care Teams Contract Implementation Analyst Relationship Specialty Start Date End Date Keo Orozco APRN PCP - General 09/30/10 09/29/11 [address] [place] [address] documented as of this encounter
--- OUTSIDE RECORDS SUMMARY | 2022-02-05 01:59 | XMS_ITS | Encounter Summary ---
:1960 Author Organization [facility] [place] [address] Care Team Providers Name Role Phone Ralph Ellison MD Primary Care Provider Reason for Referral Diagnostic Test (Routine) - Closed Specialty Diagnoses / Procedures Referred By Contact Refer red To Contact Diagnoses Chest discomfort SOB (shortness of breath) Atypical chest pain Adolfo Alejo MD [facility] Non-Inv Card Lab Procedures Echocardiogram Stress (Treadmill) [facility] [place] [address] [place] [address] Referral ID Status Reason Start Date Expiration Date Visits V isits Requested Authorized [id number] Closed Specialty 09/26/2015 11/25/2015 1 1 Service Requested Reason for Visit Reason Comments Chest Pain Consultation (SHERMAN) - Closed Specialty Diagnoses / Procedures Referred By Contact Refer red To Contact Cardiology Diagnoses positive cardiac stress test risk factors diabetes, hypertension and hyperlipidemia Ralph Ellison MD [facility] Cardiology [address] [place] [address] [place] [address] [place], [place] [address] Referral ID Status Reason Start Date Expiration Date Visits V isits Requested Authorized [id number] Closed Consult, 09/05/2015 09/04/2016 1 1 [facility] Encounter Details Date Type Department Care Team Description 09/11/2015 Office Visit [facility] at [facility] Adolfo Alejo, Chest discomfort; [facility] MD SANTIAGO (shortness of breath); Drive [facility] [place]typ[place] [address] CARDIOLOGY DEPT. [phone] ANTHONY JASSO 0375 Social History Tobacco Use Types Packs/Day Years Used Date Never Smoker Smokeless Tobacco: Never Used Sex Assigned at Date Recorded Not on file documented as of this encounter Last Filed Vital Signs Vital Sign Reading Time Taken Comments Blood Pressure 150/88 09/11/2015 10:41 AM EST Pulse 74 09/11/2015 10:41 AM EST Temperature - - Respiratory Rate - - Oxygen Saturation 97% 09/11/2015 10:41 AM EST Inhaled Oxygen Concentration - - Weight 95.5 kg (210 lb 8 oz) 09/11/2015 10:41 AM EST Height 177.8 cm (5' 10) 09/11/2015 10:41 AM EST stated Body Mass Index 30.2 09/11/2015 10:41 AM EST documented in this encounter Patient Instructions Patient InstructionsAdolfo Alejo MD - 09/11/2015 11:57 AM EST 1. Begin daily aspirin, 81 mg 2. Labs today (cardiac enzymes) 3. Stress echocardiogram to be scheduled 4. Follow-up at time of stress test documented in this encounter Progress Notes Adolfo Alejo MD - 09/11/2015 11:50 AM EST Images from the original note were not included. [facility] ANTHONY Bui [id number] [address] OUTPAT[address]SULT[address] [facility] Office Jefry Guadarrama [id number] 09/11/2015 REFERRING PROVIDER: Ralph Ellison CHIEF COMPLAINT: Chief Complaint Patient presents with ??? Chest Pain PROBLEM LIST Patient Active Problem List Diagnosis ??? Atypical chest pain ?? Nuclear stress test [facility] in 2015 reportedly negative ?? Treadmill stress test [facility] August 21, [address] depression in eliciting mild chest discomfort at 13.5 METs and a peak blood pressure of 224 mmHg ??? Gastroesophageal reflux ??? Elevated blood pressure ??? Elevated cholesterol ??? Depression ??? Asthma ??? Hx of laparoscopic gastric banding HISTORY OF PRESENT ILLNESS: This 54-year-old man was kindly referred by Dr. Ralph Ellison for evaluation of chest pain. He has apparently been having pain for more than a year. About a year ago he had a nuclear stress test at [facility] which was reportedly negative. His sym ptoms have waxed and waned ever since then. In the last few months his symptoms have been worse. He describes a central tightness or aching sensation with very minimal radiation. His symptoms are virtually constantly present. He does not feel his symptoms are affected by meals. They may be worsened slightly with deep inspiration. His symptoms are generally not associated with activity although sometimes with extremes of activity he will be short of breath and noticed some intensification of his baseline chest discomfort. His symptoms were brought to the attention of his primary care physician who scheduled a treadmill stress test. This was done on August 21, 2015 and was reportedly positive based on elicitation of chest pain and EKG changes. No medications have been prescribed. Of interest, he is status post laparoscopic banding of the stomach for obesity. He has had some difficulty swallowing, both before and after this. He has had esophageal issues which have led to treatment with calcium channel blockers. He continues to have some dysphagia to liquids. He does not, however, feel that swallowing food or fluids specifically worsens his current chest discomfort. PAST MEDICAL HISTORY: Reviewed and updated as appropriate in the medical record. Please refer to detailed Problem List above for current listing of active medical problems. MEDICATIONS: Current Outpatient Prescriptions Medication Sig Dispense Refill ??? atorvastatin (LIPITOR) 20 mg Tablet Take 20 mg by mouth daily. ??? FLUoxetine (PROZAC) 40 mg Capsule Take 40 mg by mouth daily. ??? LEVEMIR FLEXTOUCH Insulin Pen 40 Units daily. ??? lisinopril (PRINIVIL;ZESTRIL) 20 mg Tablet Take 20 mg by mouth daily. ??? metFORMIN (GLUCOPHAGE-XR) 500 mg Tablet Sustained Release 24 hr Take 500 mg by mouth daily. ??? montelukast (SINGULAIR) 10 mg Tablet Take 10 mg by mouth daily. ??? BD REGULAR BEVEL NEEDLES 19 x 1 1/2 Needle ??? BD INSULIN PEN NEEDLE UF MINI 31 gauge x /16 Needle ??? VIAGRA 100 mg Tablet 100 mg as needed. ??? testosterone cypionate (DEPOTESTOSTERONE CYPIONATE) 200 mg/mL Oil once a week. No current facility-administered medications for this visit. ALLERGIES: Cat/feline products SOCIAL HISTORY: He is and lives with his in [place], [place]. 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 He has never smoked. He drinks a rare alcoholic beverage. He doesn't exercise for the sakeof exercise but does walk between 6 and 10,000 steps per day at work. FAMILY HISTORY: His father at 76 with asbestosis. His mother at 65 with metastatic lung cancer. She also had a melanoma which was excised years earlier. He has a brother and sister, both healthy. He has one son, alive and well. REVIEW OF SYSTEMS: General: He reports fatigue, difficulty sleeping, and intermittent lightheadedness. Eyes: No visual loss, double vision, drainage, eye pain, or dry eyes. ENT: No sore throat or dry mouth. Pulmonary: No shortness of breath, cough, or hemoptysis. Hem/Lymph: No swollen glands, fever, or bleeding. GI: He reports occasional difficulty swallowing liquids. He denies change in bowel habits, melena, nausea, or vomiting. He reports occasional constipation. : No urethral discharge, dysuria, frequency, or nocturia. Endocrine: No hot spells, cold spells. Musculoskeletal: No limb pain, joint pain, or joint swelling. Neuro: No focal weakness, ataxia, confusion, paresthesias or headache. Skin: No rashes or dry skin. Psych: He reports depression and occasional suicidal thoughts but insists that he would never actually considered killing himself. Cardiac: See HPI PHYSICAL EXAMINATION: Vital Signs: BP 150/88 mmHg Pulse 74 Ht 177.8 cm (5' 10) Wt 95.482 kg (210 lb 8 oz) BMI 30.20 kg/m2 SpO2 97% Exam Details: On examination he appeared a well-nourished and normally developed male. Vital signs as documented. Head exam is unremarkable. No scleral icterus of corneal arcus noted. Neck is without jugular venous distension, thyromegaly, or carotid bruits. Carotid upstrokes are brisk bilaterally. Lungs clear to auscultation and percussion. Cardiac exam reveals the PMI to be normally sized and situated. Rhythm is regular. First and second hearts sounds normal. No murmurs, rubs or gallops. Abdominalexam reveals normal bowl sounds, no masses, no organomegaly and no aortic enlargement. Extremities are non-edematous and both femoral and pedal pulses are normal. DATA: Twelve-lead EKG: This revealed normal sinus rhythm with no ischemic changes. ASSESSMENT: In summary, this is a 54-year-old man who has had fairly chronic pain over the course ofthe last year which has been worse during the last couple months. His symptoms are rarely gone and are very atypical in this regard. On the other hand he does have dyspnea and worsening of the symptomswith extremes of activity. He also had a reportedly positive stress test. Although I have a fair amount skepticism that his symptoms are cardiac, in the context of her current available data, I think we need more information. I recommended a stress echocardiogram. If negative, I would pursue a GI cause to his symptoms. Incidentally, he snores fairly loudly and says he awakens exhausted. I have recently high suspicion of underlying obstructive sleep apnea and this would be reasonable to pursue at some point. RECOMMENDATIONS: 1. Addition of baby aspirin to medical regimen 2. Schedule stress echocardiogram both to look at baseline status of heart and to formally evaluate for ischemia 3. If stress test negative, consider GI workup 4. Consider evaluation for obstructive sleep apnea Thank you for requesting this consultation. For questions, please feel free to contact me via any ofthe following mechanisms: Email: [email or web address] documented in this encounter Miscellaneous Notes Addendum Note - Arlyn Copeland - 09/11/2015 12:24 PM EST Addended by: ARLYN COPELAND on: 09/11/2015 12:24 PM Modules accepted: Orders documented in this encounter Plan of Treatment Not on filedocumented as of this encounter Procedures Procedure Name Priority Date/Time Associated Diagnosis Comme nts TROPONIN Routine 09/11/2015 12:30 PM Chest discom fort Results for this EST SOB (shortness of procedure are in the breath) results section. Atypical chest pain EKG 12-LEAD Routine 09/11/2015 11:00 AM Chest discom fort Results for this EST SOB (shortness of procedure are in the breath) results section . documented in this encounter Results STRESS ECHOCARDIOGRAM W CONTRAST LMTD SPEC DOPP,COLOR DOPP (10/30/2015 12:11 PM EDT) P athologist Signature EF 55 [facility] Specimen (Source) Anatomical Location Collection Method / Collectio n Time Received Time / Laterality Volume 10/30/2015 Narrative [facility] - 10/30/2015 12:54 PM ED T Procedure: ?Stress Echocardiogram Patient: ?YEIMI JOSEPH ? (Age): 1960(54y) Med Rec#: ? [id number] ?Sex: ?M ? Site Loc: ? [facility] ?Ht / Wt: ??177(cm)/95.01(k Pt. Loc: ?Echo Lab ?BSA: ?2.12 Study Date: ?? 10/30/2015 ?Pt. Type: Tape: ? Referring: ADOLFO ALEJO Referring: Adolfo Alejo Reading: Nirmal Arroyo ([id number]) Airplane Cover Maker: Grady Orosco Relations Director: Milagros Duke Interpreting Fellow: Gregor Schwarz ??([id number]) Interpreting Fellow: Madan Hu ([id number]) Interpreting Fellow: Albino Rice ([id number] ) Diagnosis: *ICD-10-PCS Shortness of breath (R06.02 ) *ICD-10-PCS Other chest pain (R07.89) CPT Codes: *Stress Echo (10304) *Color Doppler (13375) *Doppler LTD (39822) *ECG Interpretation (29517) *Definity (98063OB) Stage ? BP ?HR ? Rest ?166/80 ?86 ? Peak ?200/100 ? 171 ? Recovery ?130/90 ?96 ? SUMMARY: 1. BASELINE: Normal global and segmental biventricular systolic function with an estimated left ventricular eject ion fraction of 55%. No hemodynamically significant valve diseas e. 2. STRESS: The patient exercised on a Working Equity for a total of 9:41 min achieving [...] E-wave Vmax ?0.5 ?m/sec ? MV deceleration [id number] ?msec ? MV A-wave Vmax ?0.6 ?m/sec [...] ?Normal ?Normal ? Mid-Inferoseptal ?Normal ?Normal ? [place]re-Septal ? Normal ?Normal ? [place]-Anterior ? Normal ?Normal ? [place]-Lateral ?Normal ?Normal ? [place]-Inferior ? Normal ?Normal ? [place]-Tip ?Normal ?Normal ? This report has been electronically sign ed by: _ Nirmal Arroyo M.D. ? 10/30/2015 12:53:17 Images reviewed and interpretation [facility]trasound [facility] Procedure Note Nirmal Arroyo MD - 10/30/2015Format ting of this note might be different from the original. Procedure: Stress Echocardiogram Patient: YEIMI TORRES(Age): [birth year](54y) Med Rec#: [id number] Sex: M Site Loc: [facility] Ht / Wt: 177(cm)/95.01(k Pt. Loc: Echo Lab BSA: 2.12 Study Date: 10/30/2015 Pt. Type: Tape: Referring: ADOLFO ALEJO Referring: Adolfo Alejo Reading: Nirmal Arroyo ([id number]) Airplane Cover Maker: Grady Orosco Relations Director: Milagros Duke Interpreting Fellow: Gregor Schwarz ([id number]) Interpreting Fellow: Madan Hu ([id number]) Interpreting Fellow: Albino Rice ([id number] ) Diagnosis: *ICD-10-PCS Shortness of breath (R06.02 ) *ICD-10-PCS Other chest pain (R07.89) CPT Codes: *Stress Echo (77544) *Color Doppler (77927) *Doppler LTD (32154) *ECG Interpretation (04901) *Definity (03831RL) Stage BP HR Rest 166/80 86 Peak 200/100 171 Recovery 130/90 96 SUMMARY: 1. BASELINE: Normal global and segmental biventricular systolic function with an estimated left ventricular eject ion fraction of 55%. No hemodynamically significant valve diseas e. 2. STRESS: The patient exercised on a Working Equity for a total of 9:41 min achieving [...] MV E-wave Vmax 0.5 m/sec MV deceleration [id number] msec MV A-wave Vmax 0.6 m/sec MV [...] Normal Mid-Inferior Normal Normal Mid-Inferoseptal Normal Normal [place]-Septal Normal Normal [place]-Anterior Normal Normal [place]-Lateral Normal Normal [place]-Inferior Normal Normal [place]-Tip Normal Normal This report has been electronically sign ed by: _ Nirmal Arroyo M.D. 10/30/2015 12:53: 17 Images reviewed and interpretation verif ied [facility] Adolfo Alejo MD ECHO ORDERABLES Performing Organization Address City/State/ZIP Code Phon e Number HEART[facility] SYSTEM Troponin T (09/11/2015 12:30 PM EST) P athologist Signature Troponin-T <0.03 <=0.03 CERNER ng/mL [employer] Comment: 0.03 ng/mL: Represents the 99th percenti le upper reference limit for normals. >0.03 ng/mL: Elevated cardiac troponin T level indicative of myocardial damage. Diagnosis of acute, evolving or recent M I requires a typical rise and gradual fall of cTnT with at least ONE of the fo llowing: a) Ischemic symptoms b) Development of pathologic Q waves on the ECG c) ECG changes indicative of eschemia (S -T segment elevation/depression) d) Coronary artery intervention Serial bloods should be obtained for pineda ting on admission, at 6 to 9 hrs and again at 12 to 24 hrs if earlier samples are negative and the clinical index of suspicion is high. Reference: [Myocardial infarction redefined? a consensus document of the Joint Society of Cardiology/[place] [employer] o f [employer]iology Committee for the redefinition of myocardial infarction. ? ?Journal of the [place] College of Cardiology 2000; 36: 959-969] Specimen Anatomical Collection Method Collection Time Receive d Time (Source) Location / / Volume Laterality Blood specimen 09/11/2015 12:30 6 (specimen) PM EST 12:45 PM EST Resulting Agency Comment Spec In Lab Adolfo Alejo MD CHEMISTRY ORDERABLES Performing Organization Address City/State/[place] [address] CERNER MILLENNIUM EKG 12 Lead (09/11/2015 11:00 AM EST) Patholo gist Method Time Signature Ventricular rate 72 BPM MUSE SYSTEM Atrial Rate 72 BPM MUSE SYSTEM P-R Interval 180 ms MUSE SYSTEM QRS Duration 94 ms MUSE SYSTEM Q-T Interval 358 ms MUSE SYSTEM QTC Calculated 392 ms MUSE SYSTEM (Bezet) Calculated P [place] 73 degrees MUSE SYSTEM Calculated R [place] 74 degrees MUSE SYSTEM Calculated T [place] 63 degrees MUSE SYSTEM INTERPRETATION Normal sinus rhythm MUSE SYSTEM Normal ECG No previous ECGs available Confirmed by MD Melo, Adolfo ([id number]) on 09/11/2015 1:38:08 PM Specimen Anatomical Collection Method Collection Time Receive d Time (Source) Location / / Volume Laterality 09/11/2015 11:00 09/11/2015 1:38 AM EST PM EST Adolfo Alejo MD ECG ORDERABLES Performing Organization Address City/State/ZIP Code Phon e Number MUSE SYSTEM documented in this encounter Visit Diagnoses Diagnosis Chest discomfort Other chest pain SOB (shortness of breath) Shortness of breath Atypical chest pain Other chest pain Chest discomfort Other chest pain SOB (shortness of breath) Shortness of breath Atypical chest pain Other chest pain documented in this encounter Care Teams Development Scientist Relationship Specialty Start Date End Date Ralph Ellison MD PCP - General General Internal Medicine 09/05/15 7 [address] [place] [address] documented as of this encounter
--- OUTSIDE RECORDS SUMMARY | 2022-02-05 01:59 | XMS_ITS | Encounter Summary ---
:1960 Author Organization [facility] [place] [address] Care Team Providers Name Role Phone Dom Kennedy MD Primary Care Provider Reason for Visit Reason Onset Date Comments Prior Authorization 01/30/2021 Encounter Details Date Type Department Care Team Description 01/30/2021 Telephone Endocrinology at [facility] Faiza [place] [address] Social History Tobacco Use Types Packs/Day Years Used Date Never Smoker Smokeless Tobacco: Never Used Sex Assigned at Date Recorded Not on file documented as of this encounter Miscellaneous Notes Telephone Encounter - Faiza Armijo - 01/30/2021 7:15 AM EDT Received pa for Jardiance Will complete as soon as possible Telephone Encounter - Faiza Armijo - 01/30/2021 7:15 AM EDT Medication Prior Authorization Comi Medication name/dose/directions: Jardiance 10mg - once daily Rationale for request: Type II DM Health plan: [facility] ([facility]) Authorizing solar sales representative name: Nieves Sent to health plan on: 02/10/21 Health plan decision: Approved Quantity approved: Authorization number: [id number] Start date: 01/11/21 End date: 02/10/22 documented in this encounter Plan of Treatment Not on filedocumented as of this encounter Visit Diagnoses Not on filedocumented in this encounter Care Teams Grain Origination Specialist Relationship Specialty Start Date End Date Dom Kennedy MD PCP - General 12/28/16 [place] [address] documented as of this encounter
--- OUTSIDE RECORDS SUMMARY | 2022-02-05 01:59 | XMS_ITS | Encounter Summary ---
:1960 Author Organization [facility] [place] [address] Care Team Providers Name Role Phone Dom Kennedy MD Primary Care Provider Encounter Details Date Type Department Care Team Description 05/28/2020 Office Visit [place]rology [place] [facility] Estrella Hickman Lower urinary tract symptoms (LUTS); [facility] MD Kacy [place] [address] UROLOGY DEPT. [phone] [place], [place] [address] (Wo rk) Social History Tobacco Use Types Packs/Day Years Used Date Never Smoker Smokeless Tobacco: Never Used Sex Assigned at Date Recorded Not on file documented as of this encounter Patient Instructions Patient InstructionsCris Barba LPN - 05/28/2020 11:00 AM EDT Instructions following Cystoscopy Activity: As tolerated by your comfort level. Fluids: You should increase your water today. Avoid coffee, tea and cola. You do not need to exceed 64 ounces of water today. Urination: You will likely have a small amount of blood in your urine for the next several days. This is normal; however, if you are passing large amounts of blood clots or are unable to void please call our office at [phone] before 5PM or [phone] after hours. Please call if: * you have copious blood in your urine * fevers greater than 101.3 F * you are unable to void The number for questions is [phone] before 5 PM weekdays and [phone] after 5 PM and weekends. Follow-up: With Dr. Hickman in three months office visit documented in this encounter Progress Notes Estrella Hickman MD - 05/28/2020 11:00 AM EDT Pt is here for a cysto Normal except for a large median lobe, vascular prostate and bladder neck. Imp: Pt with a history of gross hematuria- likely due to his prostate Plan: return to clinic when he rebleeds. Otherwise I will see him in 3 months for his LUTS. documented in this encounter Procedure Notes Estrella Hickman MD - 05/28/2020 11:00 AM EDTAssociated Order(s): CYSTOSCOPY Pre-Procedure Diagnose(s): Gross hematuria Post-Procedure Diagnose(s): Gross hematuria Procedure: Flexible cystoscopy. Surgeon: Marylou Complications: None. Procedure: Urinalysis revealed no evidence of an active urinary tract infection. After informed consent was obtained and the external genitalia appropriately had been cleaned and draped lidocaine was instilled into the urethra to achieve topical anesthesia. The flexible telescope was inserted into the urethra and advanced into the bladder under direct vision. The bladder was systematically inspected through 360 degrees with the flexible telescope including retroversion. Anterior urethroscopy was normal. The prostatic fossa was normal - the prostate is very vascular. There is a large median lobe in the bladder. The ureteral orifices were in normal position and effluxed clear urine. The bladder was normal. There were no bladder tumors, mucosal abnormalities or bladder stones. The cystoscope was removed. The patient tolerated the procedure without difficulty. There were no complications. The patient was given 1 cipro prior to the procedure. documented in this encounter Plan of Treatment Not on filedocumented as of this encounter Procedures Procedure Name Priority Date/Time Associated Comments Diagnosis NON-LIVING ADVISOR FINAL REPORT Routine 05/28/2020 12:31 Res ults for this PM EDT procedure are i n the results section. CYTOPATHOLOGY Routine 05/28/2020 12:31 Gross hematuria Results for this NON-GYNECOLOGICAL PM EDT procedure are in the results section. CYSTOSCOPY Routine 05/28/2020 11:00 Lower urinary tract Resu lts for this AM EDT symptoms (LUTS) procedure ar e in the results section. documented in this encounter Results Non-Supervisor Speech Final Report (05/28/2020 12:31 PM EDT) Component Value Ref Test Analysis Performed At [facility] Range Method Time Signature Non-Supervisor Speech Final [id number] ? Location: [address] [place] [address] The signing pathologist has (i) examined the relevant preparation(s) for the [facility] specimen(s) and (ii) rendered or confirmed the diagnosis(es) . HOSPITAL LAB[facility]ATORY . ? No n-Supervisor Speech Final DIAGNOSIS Atypical Urothelial Cells See discussion. Electronically signed by: ??Cyndi BRASWELL, Miguel Yuan Verified: ??05/30/2020 ?Cytopathologist Performed at: ??-[facility] Dept. of Pathology, [place], [place] DISCUSSION Urine, voided: Atypical sing le urothelial cells, some showing degenerative changes, present. Reference: Prosper DL, ?? Sarah ORTIZ, Cuong ??DFI. The Radha System for Reporting Urinary Cytology. [place]: Soni; 2016. CLINICAL INFORMATION Specimen Source : Urine, voided Pertinent Clinical Data and Significant Therapy: Hematuria Clinical Impression : Gross hematuria Pertinent Radiologic Findings ??: (not provided) Gross Description: Received ??fresh, approximately 65 mL total volu me of ?? clear, yellow fluid. Total Preparation: Liquid-Based Prep 1. Specimen (Source) Anatomical Collection Method Collection Time Re ceived Time Location / / Volume Laterality 05/28/2020 12:31 PM EDT Estrella Hickman MD PATHOLOGY/CYTOLOGY ORDERABLE S Performing Organization Address City/[facility]/ZIP Code Phon e Number [address] Cytopathology Non-Gynecological (05/28/2020 12:31 PM EDT) Specimen Anatomical Collection Method Collection Time Receive d Time (Source) Location / / Volume Laterality AP Specimen 05/28/2020 12:31 05/28/2020 PM EDT 12:31 PM EDT Narrative [facility] - 05/28/2020 12:31 PM EDT Specimen requisition ordered. ??Separate Pathology report to follow Estrella Hickman MD PATHOLOGY/CYTOLOGY ORDERABLE S Performing Organization Address City/[facility]/ZIP Code Phon e Number [address] Cystoscopy - Today (05/28/2020 11:00 AM EDT) Narrative Estrella Hickman MD - 05/28/2020 11:00 AM EDT Estrella Hickman MD ? 06/03/2020 ??7:58 AM Procedure: Flexible cystoscopy. Surgeon: Marylou Complications: None. Procedure: Urinalysis revealed no evidence of an ac tive urinary tract infection. After informed consent was obtained and the external genitalia appropriately had been cleaned and drape d lidocaine was instilled into the urethra to achieve topical anes thesia. The flexible telescope was inserted into the urethra and advanced into the bladder under direct vision. Th e bladder was systematically inspected through 360 deg mili with the flexible telescope including retroversion. Anterior urethroscopy was normal. The prostatic fossa was normal - the pro state is very vascular. ?? There is a large median lobe in the blad jewel. ?? The ureteral orifices were in normal pos ition and effluxed clear urine. The bladder was normal. There were no bl adder tumors, ??mucosal abnormalities or bladder stones. The cystoscope was removed. The patient tolerated the procedure without difficulty. There were no complications. The patient ??was given 1 cipro prior to the procedure. Estrella Hickman MD PROCEDURE ORDERABLES documented in this encounter Visit Diagnoses Diagnosis Lower urinary tract symptoms (LUTS) Other symptoms involving urinary system Gross hematuria documented in this encounter Care Teams Business Systems Technician Relationship Specialty Start Date End Date Dom Kennedy MD PCP - General 12/28/16 [address] [place] [address] documented as of this encounter
--- OUTSIDE RECORDS SUMMARY | 2022-02-05 01:59 | XMS_ITS | Encounter Summary ---
:1960 [place] [address] Care Team Providers Name Role Phone Ralph Ellison MD Primary Care Provider Encounter Details Date Type Department Care Team Description 10/30/2015 Office Visit Cardiology at [facility] Quentin Alejo, Gonzales chest pain [facility] [place] [address] CARDIOLOGY DEPT. [place] [id number] (Wo rk) Social History Tobacco Use Types Packs/Day Years Used Date Never Smoker Smokeless Tobacco: Never Used Sex Assigned at Date Recorded Not on file documented as of this encounter Last Filed Vital Signs Vital Sign Reading Time Taken Comments Blood Pressure 148/80 10/30/2015 1:01 PM EDT Pulse 101 10/30/2015 1:01 PM EDT irreg Temperature - - Respiratory Rate - - Oxygen Saturation 96% 10/30/2015 1:01 PM EDT on room air Inhaled Oxygen Concentration - - Weight 94.8 kg (209 lb) 10/30/2015 1:01 PM EDT Height 177.8 cm (5' 10) 10/30/2015 1:01 PM EDT Body Mass Index 29.99 10/30/2015 1:01 PM EDT documented in this encounter Progress Notes Quentin Alejo MD - 10/30/2015 1:20 PM EDT Images from the original note were not included. [facility] [place] [address] CARDIOLOGY OUTPATIENT FOLLOW-UP NOTE Jefry Guadarrama [id number] PCP: RALPH ELLISON MD 10/30/2015 PRIMARY CARE PROVIDER: RALPH ELLISON MD PROBLEM LIST: Patient Active Problem List Diagnosis ??? Atypical chest pain ?? Nuclear stress test [facility] in 2014 reportedly negative ?? Treadmill stress test [facility] August 21, [address] depression in eliciting mild chest discomfort at 13.5 METs and a peak blood pressure of 224 mmHg ??? Gastroesophageal reflux ??? Elevated blood pressure ??? Elevated cholesterol ??? Depression ??? Asthma ??? Hx of laparoscopic gastric banding MEDICATIONS: Current Outpatient Prescriptions Medication Sig Dispense [...] PEN NEEDLE UF MINI 31 gauge x 3/16 Needle ??? VIAGRA 100 mg Tablet 100 mg as needed. ??? testosterone cypionate (DEPOTESTOSTERONE CYPIONATE) 200 mg/mL Oil once a week. ??? aspirin 81 mg Tablet, Delayed Release (E.C.) Take 1 tablet by mouth daily. 30 tablet 3 No current facility-administered medications for this visit. SUBJECTIVE: This 54-year-old man comes for follow-up visit. He has been having some atypical chest pain. He had a nuclear stress test at [facility] a year ago which was negative. More recently he had a treadmill stress test at [facility] in this elicited some d iscomfort and EKG changes. His symptoms continued to be very atypical and are constantly present. Tofurther clarify and to rule out a cardiac cause, he was set up for stress echocardiogram. He says the situation is unchanged. He is increasingly thinking his symptoms are related either to stress or tohis laparoscopic banding procedure. OBJECTIVE: Vital Signs: BP 148/80 mmHg Pulse 101 Ht 177.8 cm (5' 10) Wt 94.802 kg (209 lb) BMI 29.99 kg/m2 SpO2 96% Physical Exam: He was not examined. Stress echocardiogram: SUMMARY: ?? 1. BASELINE: Normal global and segmental biventricular systolic function with an estimated left ventricular ejection fraction of 55%. No hemodynamically significant valve disease. ?? 2. STRESS: The patient exercised on a treadmill for a total of 9:41 min achieving a peak heart rate of 171 bpm, (103 % max predicted).?? With stress he experienced mild chest pain that resolved in recovery. He was hemodynamically stable, had no arrhythmias and developed no significant ST-TW changes. ?? 3. ECHOCARDIOGRAPHIC FINDINGS: LV function augments normally at peak stress. ?? 4. IMPRESSION: Normal exercise echocardiogram.?? There is no echocardiographic evidence of ischemia at this diagnostic level of stress. DIAGNOSES: 1. Atypical chest pain IMPRESSIONS: This stress test today was very encouraging in that it showed a normal resting study and no evidence of ischemia. He did have chest pain throughout the test (including before exercise). All of this considered, it seems extremely unlikely that his symptoms are cardiac in etiology. We discussed this in detail. He will explore for stress reduction and also discuss with his PCP the possibility that the symptoms may be related to his murmurs, banding procedure. PLAN: 1. No further cardiovascular testing 2. Cardiology follow-up only as needed documented in this encounter Plan of Treatment Not on filedocumented as of this encounter Visit Diagnoses Diagnosis Atypical chest pain Other chest pain documented in this encounter Care Teams Air Twister Winder Relationship Specialty Start Date End Date Ralph Ellison MD PCP - General General Internal Medicine 09/05/15 7 EDIS [address] [place] [address] documented as of this encounter
--- OUTSIDE RECORDS SUMMARY | 2022-02-05 01:59 | XMS_ITS | Encounter Summary ---
:1960 Author Organization [facility] [place] [address] Care Team Providers Name Role Phone Keo Orozco APRN Primary Care Provider Encounter Details Date Type Department Care Team Description 06/21/2011 Laboratory Appointment [address] [address] Social History Tobacco Use Types Packs/Day Years Used Date Never Assessed Sex Assigned at Date Recorded Not on file documented as of this encounter Plan of Treatment Not on filedocumented as of this encounter Visit Diagnoses Not on filedocumented in this encounter Care Teams E Commerce Merchant Relationship Specialty Start Date End Date Keo Orozco APRN PCP - General 09/30/10 09/29/[address] [place] [address] documented as of this encounter
--- OUTSIDE RECORDS SUMMARY | 2022-02-05 01:59 | XMS_ITS | Encounter Summary ---
:1960 [place] [address] Care Team Providers Name Role Phone Dom Kennedy MD Primary Care Provider Encounter Details Date Type Department Care Team Description 05/01/2020 Ancillary Procedure Radiology Library at Juana Hickman [facility] MD Kacy [facility] [place] [address] UROLOGY DEPT. [phone] [place], [place] [address] (Wo rk) Social History Tobacco Use Types Packs/Day Years Used Date Never Smoker Smokeless Tobacco: Never Used Sex Assigned at Date Recorded Not on file documented as of this encounter Plan of Treatment Not on filedocumented as of this encounter Procedures Procedure Name Priority Date/Time Associated Diagnosis Comme nts FILM LIBRARY Routine 05/01/2020 12:00 AM Results for this STORAGE ONLY CT EDT procedure ar e in ABDOMEN AND PELVIS the resul ts section. documented in this encounter Results Film Library- Storage Only CT Abdomen & Pelvis (05/01/2020 12:00 AM EDT) Specimen (Source) Anatomical Location Collection Method / Collectio n Time Received Time / Laterality Volume Narrative RAD - 05/14/2020 9:49 PM EDT This exam is auto-finalizing. It's purpo se is for storage only. Estrella Hickman MD [facility] FILM LIBRARY ORDERABLES Performing Organization Address City/State/ZIP Code Phon e Number [facility] [place] documented in this encounter Visit Diagnoses Not on filedocumented in this encounter Care Teams Ultrasound Technologist Sonographer Relationship Specialty Start Date End Date Dom Kennedy MD PCP - General 12/28/16 [address] [place] [address] documented as of this encounter
--- OUTSIDE RECORDS SUMMARY | 2022-02-05 01:59 | XMS_ITS | Encounter Summary ---
:1960 Author Organization [facility] [place] [address] Care Team Providers Name Role Phone Michael Mims MD Primary Care Provider [phone] Encounter Details Date Type Department Care Team Description 01/04/2012 Laboratory Appointment [address] [address] Social History Tobacco Use Types Packs/Day Years Used Date Never Assessed Sex Assigned at Date Recorded Not on file documented as of this encounter Plan of Treatment Not on filedocumented as of this encounter Visit Diagnoses Not on filedocumented in this encounter Care Teams Customer Retention Representative Relationship Specialty Start Date End Date Michael Mims MD PCP - General 10/11/11 03/21/14 [address] [place] [address] documented as of this encounter
--- OUTSIDE RECORDS SUMMARY | 2022-02-05 01:59 | XMS_ITS | Encounter Summary ---
:1960 Author Organization [facility] Address [facility] [place] [address] Care Team Providers Name Role Phone Dom Kennedy MD Primary Care Provider Reason for Visit Reason Comments Medication Refill Encounter Details Date Type Department Care Team Description 12/20/2021 Refill Endocrinology at [facility] Td Swift MD Type 2 diabetes [facility] D [facility]ra [facility] [place] [place] [address] [address] [address] duong, with [phone] ENDOCRINOLOGY DE PT. long-term current use [place], [place] [address] of insulin [phone] (Wo rk) Social History Tobacco Use Types Packs/Day Years Used Date Never Smoker Smokeless Tobacco: Never Used Sex Assigned at Date Recorded Not on file documented as of this encounter Miscellaneous Notes Telephone Encounter - Mateus Arango RN - 12/21/2021 1:24 PM EDT 12/21/21: Patient not following up with Dr Blanco, future refills to come from PCP. documented in this encounter Plan of Treatment Not on filedocumented as of this encounter Visit Diagnoses Diagnosis Type 2 diabetes mellitus with hyperglyce john, with long-term current use of insulin documented in this encounter Care Teams Electric Welder Relationship Specialty Start Date End Date Dom Kennedy MD PCP - General 12/28/[address] [place] [address] documented as of this encounter
--- OUTSIDE RECORDS SUMMARY | 2022-02-05 01:59 | XMS_ITS | Encounter Summary ---
:1960 Author Organization [facility] [place] [address] Care Team Providers Name Role Phone Dom Kennedy MD Primary Care Provider Encounter Details Date Type Department Care Team Description 09/08/2020 Office Visit [place] [facility] [place]rella Hickman Gross hematuria; [facility] MD Kacy Benign localized prostatic hyperplasia w ith lower urinary tract symptoms (LUTS) [place] [address] UROLOGY DEPT. [phone] [place], [place] [address] (Wo rk) Social History Tobacco Use Types Packs/Day Years Used Date Never Smoker Smokeless Tobacco: Never Used Sex Assigned at Date Recorded Not on file documented as of this encounter Last Filed Vital Signs Vital Sign Reading Time Taken Comments Blood Pressure 152/79 09/08/2020 11:44 AM EST Pulse 100 09/08/2020 11:44 AM EST Temperature - - Respiratory Rate - - Oxygen Saturation - - Inhaled Oxygen Concentration - - Weight - - Height - - Body Mass Index - - documented in this encounter Progress Notes Estrella Hickman MD - 09/08/2020 11:20 AM EST Reason for Visit: This is a 59 y.o. male seen at the request of Dom Kennedy MD for Gross hematuria and Luts He was last seen 05/28/20 I scoped him at that time and he was noted to have a very large prostate. His CT 05/01/20 was negative except for a large prostate and a somewhat, thick but underdistended bladder. He has had no further hematuria For his LUTS I asked him to do behavioral changes including reducing his tea. He was advised to increase his Flomax to 0.8 mg. He has reduced his tea, he did have a vanilla spice this am and leaked. He then voided downstairs and felt like he didn't empty well. He then voided again up here. Overall he feels like he can hold more usually He is drinking 1/2 gallon water, some crystal light lemonade and milk. Most days he has a large tea at DD - now Vanilla spice (no tea). He voids q 2-3 hr He is up once per night - occasionally 2 time. On exam Abd; soft, nontender, no masses PVR 31- 80 cc with the scanner shortly after he had voided. UA: neg RBC, WBC, ++ glucose Imp: Pt with LUTS - improved on flomax 0.8 mg Hx of gross hematuria - none recently Plan: advised to reduce fluids to 64 - 80 cc Avoid coffee, tea and spicy drinks Continue flomax 0.8 mg as it has been helping and he is tolerating it well. For his history of gross hematuria. He should call if and when he again has gross hematuria and we will repeat his cysto when bleeding. RTC 6 mon See prior note in italics The hematuria was seen on many occasions on one day in early Apr. He had pain in his penis and was voiding q 15 min. It was accompanied by small clots. He was seen by Dom Kennedy MD who advised him to take Pyridium. His UA at that time showed a large amount of hemolyzed blood. Referred him to Nadege Gaona NP at [facility]. He had the following tests and [...] HEALTH: good REVIEW OF SYSTEMS: Negative. -- RECORDS MANAGEMENT SPECIALIST - No headaches or loss of consciousness [...] this encounter Visit Diagnoses Diagnosis Gross hematuria Benign localized prostatic hyperplasia w ith lower urinary tract symptoms (LUTS) Benign localized hyperplasia of prostate with urinary obstruction and other lower urinary tract symptoms (LUTS) documented in this encounter Care Teams Hub Lead Relationship Specialty Start Date End Date Dom Kennedy MD PCP - General 12/28/16 [address] [place] [address] documented as of this encounter
--- OUTSIDE RECORDS SUMMARY | 2022-02-05 01:59 | XMS_ITS | Encounter Summary ---
:1960 Author Organization [facility] [place] [address] Care Team Providers Name Role Phone Michael Mims MD Primary Care Provider [phone] Encounter Details Date Type Department Care Team Description 01/19/2012 Follow-Up [facility] Ahuja MD [address] [place] [address] [address] [place] [address] [place] [address] [phone] (Wo rk) Social History Tobacco Use Types Packs/Day Years Used Date Never Assessed Sex Assigned at Date Recorded Not on file documented as of this encounter Plan of Treatment Not on filedocumented as of this encounter Visit Diagnoses Not on filedocumented in this encounter Care Teams Lift Mechanic Relationship Specialty Start Date End Date Michael Mims MD PCP - General 10/11/11 03/21/14 [address] [place] [address] documented as of this encounter
--- OUTSIDE RECORDS SUMMARY | 2022-02-05 02:00 | XMS_ITS | Encounter Summary ---
:1960 Author Organization [facility] [address] Care Team Providers Name Role Phone Aftab Coles MD, Dom Conrad Primary Care Provider Encounter Details Date Type Department Care Team Description 07/30/2010 Office Visit [facility] Lorene Luna, RD [address] [place] [address] [facility] [phone] [place] [address] Social History Tobacco Use Types Packs/Day Years Used Date Never Assessed Sex Assigned at Date Recorded Not on file documented as of this encounter Plan of Treatment Not on filedocumented as of this encounter Visit Diagnoses Not on filedocumented in this encounter Care Teams Reaming Machine Operator Relationship Specialty Start Date End Date Dom Ugalde Jr., MD PCP - General 07/07/10 08/05/10 [place] [address] documented as of this encounter
--- OUTSIDE RECORDS SUMMARY | 2022-02-05 02:00 | XMS_ITS | Encounter Summary ---
:1960 Author Organization [facility] [place] [address] Care Team Providers Name Role Phone Unavailable Primary Care Provider Unavailable Encounter Details Date Type Department Care Team Description 06/24/2010 Procedure visit Janie Ibarra, [address] [place] [address] [facility] [phone] Social History Tobacco Use Types Packs/Day Years Used Date Never Assessed Sex Assigned at Date Recorded Not on file documented as of this encounter Plan of Treatment Not on filedocumented as of this encounter Visit Diagnoses Not on filedocumented in this encounter
[2022-02-05 09:15] LABS: HCT 49.7 % (40.0-50.0); HGB 16.9 g/dL (13.5-17.5); MCH 30.5 pg (27.0-33.0); MCV 90 fL (80-95); MPV 8.2 fL (8.0-11.0); Platelet Count 300 10^3/uL (130-400); RBC 5.54 10^6/uL (4.36-5.78); RDW 11.9 % (11.8-14.1); RDW-SD 39.4 fL; WBC 5.14 10^3/uL (4.4-10.8)
[2022-02-05 09:37] LABS: Anion Gap 7.2 mmol/L (3-11); BUN 12 mg/dL (7-18); CO2 27.8 mmol/L (21.0-32.0); Calcium 8.3 mg/dL (8.5-10.1); Chloride 101 mmol/L (98-107); Glucose 133 mg/dL (74-106); Sodium 136 mmol/L (136-145)
[2022-02-05 22:03] LABS: PSA, Diagnostic 1.6 ng/mL (<=4.5)
[2022-03-09 14:13] LABS: Testosterone, Total 1280 ng/dL (240-950)
== END 2022-02-05 01:58 | disposition home or self-care (01) ==
PROVIDERS: PCP Family Medicine; Visit Provider Family Medicine
DX: E11.9 Type 2 diabetes mellitus without complications (principal); Z79.4 Long term (current) use of insulin; E29.1 Testicular hypofunction; Z12.5 Encounter for screening for malignant neoplasm of prostate
CPT/HCPCS: 36415; 80048; 84402; 84403; 85027; 84153

== ENCOUNTER 2022-10-07 14:49 | Outpatient (REF) | payer BC, SELFPAY ==
[2022-10-09 12:14] LABS: COVID-19 RT-PCR UVMMC Result Negative (Negative)
== END 2022-10-07 14:50 | disposition home or self-care (01) ==
LOC: NCHCN 14:49
PROVIDERS: PCP Family Medicine; Visit Provider Physician Assistant Medical
DX: Z20.822 Contact with and (suspected) exposure to COVID-19 (principal); J02.9 Acute pharyngitis, unspecified
CPT/HCPCS: U0003; 87070

== ENCOUNTER 2022-12-27 18:34 | Outpatient (REF) | payer BC, SELFPAY ==
[2022-12-27 19:32] LABS: COMMENT (LAB VIEW ONLY) 59.98 mg/dL; Microalb ug/mg Crea 16.2 ug/mg Cr
== END 2022-12-27 18:35 | disposition home or self-care (01) ==
LOC: NCHCN 18:34
PROVIDERS: PCP Family Medicine; Visit Provider Family Medicine
DX: E11.9 Type 2 diabetes mellitus without complications (principal); Z79.4 Long term (current) use of insulin
CPT/HCPCS: 82043; 82570

== ENCOUNTER 2023-01-10 16:42 | Emergency (ER) | payer BC, SELFPAY ==
[2023-01-10 16:52] VITALS: BP 136/77; PULSE 89; RESP 18; O2SAT 97
--- NOTE | 2023-01-10 18:23 | ED.GENADUL_ITS ---
Discharge Plan Disposition Patient Disposition: Home Discharge Details Clinical Impression: Tick bite of right foot with infection Primary Care Provider: Dom Kennedy ED Provider: Antonia Manriquez Home Meds and New Rx's Prescriptions: New doxycycline hyclate 100 mg tablet 100 mg PO BID 10 Days Qty: 20 0RF No Action sildenafil 100 mg Tablet 100 mg PO DAILY PRN Patient Comments: not taking amlodipine 5 mg Tablet 2.5 mg PO DAILY Patient Comments: not taking nortriptyline 25 mg Capsule 25 mg PO DAILY Patient Comments: not taking tamsulosin 0.4 mg Capsule 0.4 mg PO DAILY Bydureon 2 mg/0.65 mL Pen Injector 2 mg SUBCUT Q7D Patient Comments: not taking meloxicam 15 mg tablet 15 mg PO DAILY PRN (Reason: back pain) 30 Days Qty: 30 5RF Patient Comments: not taking Rx Instructions: Take with food. Stop ibuprofen. atorvastatin 20 MG tablet 20 mg PO DAILY Qty: 1 Patient Comments: not taking triamcinolone acetonide 0.1 % cream 1 applic TP BID Patient Comments: not taking fluoxetine 40 MG capsule 40 mg PO DAILY Patient Comments: not taking lisinopril 20 MG tablet 20 mg PO DAILY testosterone cypionate 100 MG/ML oil 100 mg IM .SAT montelukast [Singulair] 10 MG tablet 10 mg PO DAILY metformin 500 MG tablet extended release 24 hr 500 mg PO DAILY@1700 Levemir FlexPen 100 UNIT/ML insulin pen 30 units SQ QAM Jardiance 10 mg Tablet 10 mg PO DAILY Discharge Instructions Instructions: Tick Bite (ED) Additional Instructions: Please take the antibiotic twice daily with yogurt or probiotic as directed. Please take it for the full 10 days. Keep your foot clean and dry. Wash with soap and water daily. Please keep an eye on the redness return for any red streaks or redness which passes your ankle. Follow up with primary care provider in 3-5 days. Return to ED sooner if any worsening or concerns. Increase oral fluids. Please take Tylenol or Ibuprofen with food every 4-6 hours as needed for pain and swelling. Wear the postop shoe as needed for comfort. Stand Alone Forms: Work Release Referrals: Dom Kennedy [Primary Care Provider] - 5 days Medical Decision Making 62-year-old man presents to the ER with a chief complaint of right toe tick bite and erythema and swelling. Patient noticed a tick on his third right toe on Tuesday. It was embedded and engorged he pulled it off. Since then he has had increased erythema swelling and drainage. He is a diabetic. He reports that it may have been there at least overnight. Findings are consistent with erythema migrans will place patient on doxycycline 100 mg twice daily for the next 10 days. Did discuss patient to follow-up with primary care for recheck in approximately 5 days and return instructions. This text was generated using [email or web address] system, please disregard any oddities of phrase or misspellings. HPI General Mode of arrival: ambulatory . Date/Time Provider Initiated Documentation: 01/10/23 17:48 . Limitations to Documentation: no limitations . Information obtained by: patient, family, RN notes reviewed and old records reviewed . HPI Narrative: 62-year-old man presents to the ER with a chief complaint of right toe tick bite and erythema and swelling. Patient noticed a tick on his third right toe on Tuesday. It was embedded and engorged he pulled it off. Since then he has had increased erythema swelling and drainage. He is a diabetic. He reports that it may have been there at least overnight. He denies any fever or chills. Other past medical history includes hypertension. Related Data Home Medications Medication Instructions Recorded Confirmed fluoxetine 40 mg capsule 40 mg PO DAILY 06/14/13 06/10/20 insulin detemir U-100 100 unit/mL 30 units SQ QAM 06/14/13 01/10/23 (3 mL) subcutaneous pen (Levemir FlexPen) lisinopril 20 mg tablet 20 mg PO DAILY 06/14/13 01/10/23 metformin 500 mg tablet,extended 500 mg PO DAILY@1700 06/14/13 01/10/23 release 24 hr montelukast 10 mg tablet 10 mg PO DAILY 06/14/13 01/10/23 (Singulair) testosterone cypionate 100 mg/mL 100 mg IM .SAT 06/14/13 01/10/23 intramuscular oil atorvastatin 20 mg tablet 20 mg PO DAILY #1 tab-cap 07/11/13 06/10/20 amlodipine 5 mg tablet 2.5 mg PO DAILY 04/20/19 06/10/20 exenatide microspheres 2 mg/0.65 2 mg subcut Q7D 04/20/19 06/10/20 mL subcutaneous pen injector (Bydureon) nortriptyline 25 mg capsule 25 mg PO DAILY 04/20/19 06/10/20 sildenafil 100 mg tablet 100 mg PO DAILY PRN 04/20/19 06/10/20 tamsulosin 0.4 mg capsule 0.4 mg PO DAILY 04/20/19 01/10/23 triamcinolone acetonide 0.1 % 1 applic topical BID 10/01/19 06/10/20 topical cream meloxicam 15 mg tablet 15 mg PO DAILY PRN back pain 03/10/20 06/10/20 days #30 tabs doxycycline hyclate 100 mg tablet 100 mg PO BID 10 days #20 tabs 01/10/23 empagliflozin 10 mg tablet 10 mg PO DAILY 01/10/23 01/10/23 (Jardiance) Previous Rx's Medication Instructions Recorded meloxicam 15 mg tablet 15 mg PO DAILY PRN back pain 03/10/20 days #30 tabs doxycycline hyclate 100 mg tablet 100 mg PO BID 10 days #20 tabs 01/10/23 Allergies Allergy/AdvReac Type Severity Reaction Status Date / Time ENVIRONMENTAL/DOGS/CATS Allergy Mild ITCHY Uncoded 01/10/23 16:54 WATERY EYES General Stated Complaint: Cellulitis SAM: 3 Review of Systems All systems reviewed & are unremarkable except as noted in HPI and below Integumentary/Breasts Skin/Breast: Reports as per HPI, Reports erythema, Reports rash, Reports skin pain and Reports skin swelling PFSH All Active Problems (Updated 01/10/23 @ 18:30 by Antonia Manriquez NP) Tick bite of right foot with infection (Acute) Gross hematuria (Acute) Sensorineural hearing loss (SNHL) of right ear with unrestricted hearing of left ear (Acute) Pain of right patellofemoral joint (Acute) Pain of left patellofemoral joint (Acute) Primary hypoadrenalism (Acute) BMI 28.0-28.9,adult (Acute) Degenerative joint disease (Chronic) Dysthymic disorder (Acute) HTN (hypertension) (Chronic) Insulin dependent type 2 diabetes mellitus (Acute) Lower urinary tract symptoms (LUTS) (Acute) Degenerative joint disease (DJD) of lumbar spine (Acute) Balanitis (Acute) Decreased hearing of both ears (Acute) Lumbar radiculitis (Acute) Medical History (Updated 01/10/23 @ 18:30 by Antonia Manriquez NP) Concussion Diabetes Mellitis Type 2 insulin dependent DJD Dysthymic Disorder Exposure to hepatitis B Hyperlipidemia Hypertention Lower urinary tract infection Obesity Georgia-Schlatter's disease Primary Hypogonadism Reactive Airway Disease Seborrheic keratosis Surgical History colonoscopy 2013 History of removal of nevus Hx of laparoscopic gastric banding 2009 Social History Smoking/Tobacco Use Status: Never Smoking risk assessment performed?: Yes Alcohol Intake: current Alcohol Intake frequency: holidays/special occasions only Drug use: Never Substance use type: does not use Household members: spouse and children Housing: house Number of Children: 1 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 Do you feel safe in your relationship?: Yes Exam Extrem Right lower extremity: foot (Erythema migrans) Details: tenderness and ecchymosis Ankle/foot/toe images: 1. Erythema, swelling warmth tenderness 2. Crusted over lesion which patient reports was draining Course Vital Signs Vital signs: Vital Signs Pulse 89 01/10/23 16:52 Respiratory Rate 18 01/10/23 16:52 Blood Pressure 136/77 01/10/23 16:52 Pulse Oximetry 97 01/10/23 16:52 Pulse 89 01/10/23 16:52 Respiratory Rate 18 01/10/23 16:52 Respiratory Effort Normal, Non-Labored 01/10/23 16:54 Blood Pressure 136/77 01/10/23 16:52 Pulse Oximetry 97 01/10/23 16:52 Oxygen Delivery Method Room Air 01/10/23 16:52 Oxygen Flow Rate 0 01/10/23 16:52 PAWSS Have you Been Recently Intoxicated or Drunk Within the Last 30 days?: No Have you Ever Experienced Previous Episodes of Alcohol Withdrawal?: No Have you ever Experienced Withdrawal Seizures?: No Have you ever Experienced Delirium Tremens(DT)s?: No Have you ever undergone Alcohol Rehabilitation Treatment (i.e, inpt ot outpatient treatment programs)?: No Have you ever Experienced Blackouts?: No Have you ever Combined Alcohol with other Downers within the last 90 days?: No Have you ever Combined Alcohol with any other Substance of Abuse during the last 90 days?: No Positive Blood Alcohol level on Presentation? [PCS.BAL]: No Evidence of Increased Autonomic Activity (i.e. HR>120, tremor, sweating, agitation, nausea)?: No Result: 0
[2023-01-10] MEDS: Doxycycline Hyclate 100 MG, 2 CAPS/BTL PO (18:28)
[2023-01-10] MEDS: Doxycycline Hyclate 100 MG CAP PO (18:29)
== END 2023-01-10 18:59 | disposition home or self-care (01) ==
PROVIDERS: Emergency Provider Registered Nurse Emergency; PCP Family Medicine
DX: S90.464A Insect bite (nonvenomous), right lesser toe(s), initial encounter (principal); W57.XXXA Bitten or stung by nonvenomous insect and other nonvenomous arthropods, initial encounter; L08.9 Local infection of the skin and subcutaneous tissue, unspecified
CPT/HCPCS: 99283; 99284

== ENCOUNTER 2023-03-17 19:19 | Outpatient (REF) | payer BC, SELFPAY ==
--- NOTE | 2023-03-17 10:00 | SKI_PTH ---
PATIENT: Jefry Guadarrama LOC: LOCATED WITHIN [facility]#:[id number] AGE/SX: 62/M ROOM: RE03/17/[address]: Dom Kennedy : 1960 BED: DIS: 03/17/2023 SPEC #: [id number] RECD: 03/17/23 15:37 STATUS: LARA HARDIN #: [id number] KARLENE: 03/17/23 10:[address]: Dom Kennedy DEPT: Surgical Specimen RECD BY: Sofía Haines Tissues: 1 - SKIN BIOPSY(SHAVE/PUNCH) Procedures: SKIN LEVEL 4 Comments: [id number]
[2023-03-17 15:57] LABS: HCT 43.9 % (40.0-50.0); HGB 14.8 g/dL (13.5-17.5); MCH 31.5 pg (27.0-33.0); MCHC 33.7 % (32.0-36.0); MCV 93 fL (80-95); MPV 8.6 fL (8.0-11.0); Platelet Count 303 10^3/uL (130-400); RDW 12.2 % (11.8-14.1); RDW-SD 41.8 fL
[2023-03-17 16:38] LABS: ALT 13 U/L (16-63); AST 13 U/L (15-37); Albumin 3.5 g/dL (3.4-5.0); Alkaline Phosphatase 52 U/L (46-116); Anion Gap 7.4 mmol/L (3-11); BUN 17 mg/dL (7-18); Bilirubin, Total 0.2 mg/dL (0.2-1.0); CO2 27.6 mmol/L (21.0-32.0); Calcium 8.8 mg/dL (8.5-10.1); Chloride 106 mmol/L (98-107); Estimated GFR 84.57 (mL/min/1.73m2); Glucose 117 mg/dL (74-106); Sodium 141 mmol/L (136-145); Total Protein 6.5 g/dL (6.4-8.2)
[2023-03-17 22:49] LABS: PSA, Screening 1.1 ng/mL (<=4.5)
[2023-03-28 10:49] LABS: Testosterone, Free 12.9 ng/dL (3.67-13.9); Testosterone, Total 377 ng/dL (240-950)
== END 2023-03-17 19:20 | disposition home or self-care (01) ==
LOC: NCHCN 19:19
PROVIDERS: PCP Family Medicine; Visit Provider Family Medicine
DX: E29.1 Testicular hypofunction (principal); Z12.5 Encounter for screening for malignant neoplasm of prostate; Z00.00 Encounter for general adult medical examination without abnormal findings; E11.9 Type 2 diabetes mellitus without complications; Z79.4 Long term (current) use of insulin; L82.0 Inflamed seborrheic keratosis
CPT/HCPCS: 80053; 84153; 84402; 84403; 85027; 88305

== ENCOUNTER 2023-07-25 08:50 | Day surgery (SDC) | payer BC, SELFPAY ==
--- NOTE | 2023-07-24 18:22 | W.PM.DSUDISC ---
Date of service: 07/25/23 Time of Service: 11:26 Discharge Plan Disposition Patient Disposition: Home Condition: Good Discharge Details Reason For Visit: screening colonoscopy Attending Provider: Ramy Knapp Primary Care Provider: Dom Kennedy Home Meds and New Rx's Prescriptions: Continued sildenafil 100 mg Tablet 100 mg PO DAILY PRN Patient Comments: not taking tamsulosin 0.4 mg Capsule 0.4 mg PO DAILY bupropion HCl 150 mg tablet extended release 24 hr 150 mg PO QAM insulin glargine [Lantus Solostar U-100 Insulin] 100 unit/mL (3 mL) insulin pen 20 unit subcut .QD empagliflozin 25 mg tablet 25 mg PO DAILY gabapentin 100 mg capsule See Rx Instructions PO QHS PRN Rx Instructions: orally every day at bedtime PRN; orally every day at bedtime; 1-3 tabs; fluoxetine 40 MG capsule 40 mg PO DAILY Patient Comments: not taking metformin 500 mg tablet extended release 24 hr 1,500 mg PO DAILY Discontinued polyethylene glycol 3350 17 gram/dose powder 238 g PO ONCE Qty: 238 0RF Rx Instructions: take per colonoscopy instructions bisacodyl [Dulcolax (bisacodyl)] 5 mg tablet,delayed release (DR/EC) 5 mg PO ONCE Qty: 4 0RF Rx Instructions: take per colonoscopy instructions Discharge Instructions Additional Instructions: Jefry, we were able to complete your colonoscopy today without any issues. I did find 1 polyp, and I removed it completely. I will send this off for the pathologist to review, and the nature of the polyp will help determine when your next colonoscopy should be. We were also able to do the incisional biopsy on your leg without any problems. Although it is a pigmented lesion, it actually appears separate from the blood vessels underneath. You have a Band-Aid over the incision, and some skin glue underneath of that. Technically, there are no stitches to be removed, but I would like to see you in the office on August 10 just to check on the incision. Similar to the polyp, this biopsy will be sent off to the pathologist. Once I have all those results I will be in touch. In the meantime, if you have any questions at all just let me know. 1. If tolerated, consume a soft, low fiber diet for 1-2 days. [address] Do not drive, drink alcohol, operate machinery, make critical decisions, or do activities that require coordination or balance for 24 hours. 3. Because air was put into your colon during the procedure, expelling air from your rectum (passing gas or farting) is normal. 4. You may not have a bowel movement for 1-3 days because of the colonoscopy prep. This is normal. 5. Leave the Band-Aid on your right leg until tomorrow. Then remove it in the shower with the help of warm soapy water. There is some skin glue underneath that may be a little bit stuck to the Band-Aid. The soapy water will help release it. Rinse the incision with warm soapy water afterwards. It should not need any more bandaging after that. 6. Check the incision every day. You may notice some bruising, that is to be expected. If you notice any bright red discoloration, or discharge from the wound, please let the office know. The skin glue will be a little bit purple in appearance, and it will take quite some time to completely wash off. 7. Go directly to the emergency room if you notice any of the following: Develop chills (warm to touch), or if you have a thermometer and your temperature is above 101 Difficulty breathing or difficultly swallowing Persistent vomiting Severe abdominal pain, other than gas cramps Severe chest pain Black, tarry stools Any bleeding ? exceeding one tablespoon 8. Call your physician if the site where your intravenous was started becomes red, swollen, painful, and warm to touch. 9. Your physician has reviewed your pre-procedure medications. Please continue to take those medications as previously ordered. You will be given specific information/education regarding any changes to your medications before leaving. Referrals: Ramy Knapp MD [ [facility] STAFF PHYSICIAN] - (August 10 at 10:30 AM) Activity:: Activity as Tolerated Diet:: As Tolerated Discharge Orders Discharge Orders: Discharge Order (Routine); Ordered 07/24/23 Ordered By: Ramy Knapp DS: Diagnosis Discharge Diagnosis (1) Screen for colon cancer: Status: Acute Asessment and Plan: Outpatient follow-up
--- NOTE | 2023-07-24 18:24 | W.COLOREPORT ---
Date of service: 07/25/23 Time of Service: 11:41 Colonoscopy Report Date of procedure: 07/25/23 Pre-op diagnosis general: screening colonoscopy Post-op diagnosis procedure note: other (Colon polyp) Procedure: colonoscopy with polypectomy Surgeon: Ramy Knapp Anesthesia Type: General:No Airway Estimated blood loss (mL): 5 Pathology: other (0.75 cm polyp at 75 cm from the anus) Complications: None Disposition: same day Indications: Jefry is a 62 year old man who needs his next screening colonoscopy Prep: Miralax/Dulcolax Procedure Start Time: 10:53 Procedure End Time: 11:17 Retraction Time: 19 Findings: 0.75 cm slightly pedunculated polyp at 75 cm Procedure Description: After the induction of monitored anesthetic care, and with the patient in left lateral decubitus position, I began by performing an external anorectal exam.? Perineum and skin were normal, as was the anal verge.? There was no evidence of external hemorrhoids.? Next, I performed a digital rectal exam.? I did not appreciate any abnormal findings.? Next, I advanced a colonoscope into the rectal vault.? I performed retroflexion.? This appeared normal.? Using insufflation, I then advanced the colonoscope beyond the rectal folds and into the sigmoid colon before advancing towards the cecum.? The scope was noted to be in the cecum by identification of the ileocecal valve and appendiceal orifice.? I then began withdrawing the colonoscope using repeated irrigation as necessary for full evaluation of the colonic mucosa. Around 75 cm from the anal verge I identified a 0.75 polyp. ?It appeared slightly pedunculated in character. ?I was able to remove this with a cold snare polypectomy. ?I examined the site, and there was minimal bleeding. ?Once this was completed, I continued to withdraw the scope and examine the remainder of the colonic mucosa.?Once the scope was withdrawn to the level of the rectum, great care was taken to examine portions of the rectal folds.? Finally, the scope was withdrawn and the patient was brought to the same-day surgery recovery unit as the anesthetic wore off. ?The findings and instructions were shared with the patient prior to discharge. [place] Bowel Prep Houston Bowel Prep Right Colon: 3 Left Colon: 3 Transverse Colon: 3 Total Score: 9
[2023-07-25 09:05] VITALS: BP 119/81; PULSE 97; RESP 20; TEMP 36.5; O2SAT 96
[2023-07-25] MEDS: Lactated Ringers 1,000 ML 80 ML IV (09:21)
--- NOTE | 2023-07-25 09:37 | W.ANESPRE ---
General Info Date of Service Date Performed: 07/25/23 Height: 5 ft 9 in Weight: 88.9 kg Body Mass Index (BMI): 28.9 Surgical Procedure: Operation Date: 07/25/23 11:25 Proposed Procedure Side Surgeon p Colonoscopy Ramy Knapp MD s Biopsy of Skin Lesion- Medial Knee Right Ramy Knapp MD Meds Allergies and Home Medications Allergies Allergy/AdvReac Type Severity Reaction Status Date / Time ENVIRONMENTAL/DOGS/CATS Allergy Mild ITCHY Uncoded 07/25/23 08:54 WATERY EYES Home Medication Medication Instructions Recorded fluoxetine 40 mg capsule 40 mg PO DAILY 06/14/13 sildenafil 100 mg tablet 100 mg PO DAILY PRN 04/20/19 tamsulosin 0.4 mg capsule 0.4 mg PO DAILY 04/20/19 bupropion HCl 150 mg 24 hr tablet, 150 mg PO QAM 02/17/23 extended release empagliflozin 25 mg tablet 25 mg PO DAILY 02/17/23 insulin glargine 100 unit/mL (3 20 unit subcut .QD 02/17/23 mL) subcutaneous pen (Lantus Solostar U-100 Insulin) gabapentin 100 mg capsule See Rx Instructions PO QHS PRN 07/18/23 metformin 500 mg tablet,extended 1,500 mg PO DAILY 07/18/23 release 24 hr Current Visit Medications: Current Medications Generic Name Dose Route Start Last Admin Trade Name Freq PRN Reason Stop Dose Admin Hyoscyamine Sulfate 0.125 mg 07/24/23 18:25 Hyoscyamine 0.125 Mg Sl/Oral/Chew SL 08/23/23 18:24 DIRECTED PRN Ringer's Solution 1,000 mls @ 80 mls/hr 07/25/23 06:00 07/25/23 09:21 IV 07/25/23 23:59 80 mls/hr INFUSION SHAVON Administration IV Miscellaneous Supplies 1 each 07/25/23 06:00 Iv Access IV 07/25/23 23:59 DIRECTED SHAVON Ondansetron HCl 4 mg 07/24/23 18:25 Ondansetron 4 Mg/2 Ml Vial IVP 08/23/23 18:24 Q4H PRN PRN Nausea / Vomiting Sodium Chloride 0 ml 07/25/23 06:00 Normal Saline Flush 10 Ml Syr IV 07/25/23 23:59 PRN PRN Sodium Chloride 0 ml 07/25/23 06:00 Normal Saline 10 Ml Vial IJ 07/25/23 23:59 DIRECTED PRN Sterile Water 0 ml 07/25/23 06:00 Water,Injection,Sterile 10 Ml Vial IJ 07/25/23 23:59 DIRECTED PRN PFSH Active Problems Active Problems: Problem Status Onset Code Screen for colon cancer Z12.11 Atypical pigmented skin lesion L81.9 Colon adenomas D12.6 Primary hypogonadism in male E29.1 [place]-Schlatter's disease M92.50 Hyperlipidemia Sensorineural hearing loss (SNHL) of right ear with unrestricted hearing of left ear H90.41 Pain of right patellofemoral joint M25.561 Pain of left patellofemoral joint M25.562 Primary hypoadrenalism E27.1 Dysthymic disorder F34.1 HTN (hypertension) I10 Insulin dependent type 2 diabetes mellitus E11.9, Z79.4 Degenerative joint disease (DJD) of lumbar spine M47.816 Decreased hearing of both ears H91.93 Lumbar radiculitis M54.16 Medical History Medical History Seborrheic keratosis (07/15/14) Neoplasm of skin (07/08/14) History of Lyme disease 01/10/23 (swollen, cellulitis with doxycycline). Gross hematuria BMI 28.0-28.9,adult Lower urinary tract symptoms (LUTS) Balanitis Concussion Seborrheic keratosis Exposure to hepatitis B Lower urinary tract infection Obesity Medical History Comments:: Pt. was very distracted during pre op call-multiple attempts to redirect. Surgical History Surgical History History of removal of nevus Hx of laparoscopic gastric banding (~12/25/10) 2009 colonoscopy 2013 Tobacco Smoking/Tobacco Use Status: Never Alcohol Alcohol Intake: current Alcohol intake frequency: holidays/special occasions only Substance Use Substance use: Never Substance use type: does not use Vital Signs and Lab Results Vital Signs Most Recent Vital Signs in EMR: Most Recent Vital Signs Temp Pulse Resp BP Pulse Ox 36.5 C 97 H 20 119/81 96 07/25/23 09:05 07/25/23 09:05 07/25/23 09:05 07/25/23 09:05 07/25/23 09:05 Point of Care Results Point of Care Results: Finger Stick Blood Glucose 176 07/25/23 09:05 Lab Results Blood Type / Crossmatch: No Data to Display Complete Blood Count: No Data to Display Complete Metabolic Panel: No Data to Display Liver Function Panel: No Data to Display Coagulation Panel: No Data to Display Cardiac Panel: No Data to Display Arterial Blood Gas: No Data to Display Venous Blood Gas: No Data to Display Pancreas Panel: No Data to Display Thyroid Panel: No Data to Display Infectious Disease: No Data to Display Blood Cultures: No Data to Display Toxicology Panel: No Data to Display Imaging and Studies Imaging and Studies Study information below may be from another EMR and interpreted by another provider. Please see original notes in EMR for more complete details. Stress Test Summary: 08/21/2015: Impressions: - Positive stress test after maximal exercise with reproduction of symptoms. - ST/T changes unchanged from the 2013 study. Summary: 1. Stress ECG conclusions: The stress ECG is positive. Severity: 1.0-1.5mm. In lead groups: V5 and V6. There are no stress arrhythmias or conduction abnormalities. Oakes treadmill score: -1. This score predicts a moderate risk of cardiac events. 2. Stress: The target heart rate was achieved. The heart rate response to stress is normal. There is a normal resting blood pressure with a hypertensive response to stress (peak SBP 224 mmHg). Mild stress-induced atypical chest pain which resolved spontaneously. Exercise capacity is average for age. 3. Impressions: Positive stress test after maximal exercise with reproduction of symptoms. Recommendations: Stress myocardial perfusion imaging should be performed. Echocardiogram Summary: 12/19/2013: FINDINGS: LEFT VENTRICLE/LVEF: 60-65%. Normal size. RIGHT VENTRICLE: Normal size and function. AORTIC VALVE: Trileaflet. No aortic stenosis or insufficiency. MITRAL VALVE: No mitral stenosis. Mild insufficiency. TRICUSPID VALVE: Mild tricuspid insufficiency. RSV/PA/RIGHT ATRIAL PRESSURE: Pulmonary artery pressures estimated at 15-20 mmHg plus right atrial pressure. PULMONIC VALVE: Mild pulmonic insufficiency, no stenosis. ATRIA: Mild left atrial enlargement. Right atrium is normal. DIASTOLIC INDICES: GREAT VESSELS: The inferior vena cava is normal in size and collapses with inspiration. Right atrial pressure estimated at less than 10 mmHg. PERICARDIUM: No effusion. Pulmonary Function Summary: 07/14/2016: Pulmonary Function Test PATIENT NAME: OPAL JALLOH UNIT #: [id number] ADMITTING PROVIDER: SAMINA TOBAR MD PRIMARY CARE PROVIDER: MARIA GUADALUPE LINARES MD DATE OF ADMIT: 07/13/16 : 1960 INTERPRETATION SPIROMETRY: Spirometry shows no evidence of obstructive airways disease. No bronchodilator response. LUNG VOLUMES: Lung volumes show no evidence of restriction. DIFFUSION CAPACITY: Normal. AIRWAY RESISTANCE: Normal. IMPRESSION: Overall normal pulmonary function study. Clinical correlation recommended. When this study was compared to previous one from 06/25/13, the patient has a 300 cc. decline in FVC and FEV-1 had a 510 cc decline. Anesthesia Assessment and Plan Anesthesia History Personal History: No History of Anesthesia Complications Family History: No Family History of Anesthesia Complications Exercise Tolerance Exercise Tolerance: Metabolic Equivalents>4 Cardiac & Pulmonary Exam Cardiac Exam: Normal S1/S2 Heart Sounds Pulmonary Exam: Clear Bilateral Breath Sounds Implantable Cardiac Device Does patient have a Pacemaker or an ICD?: No Airway Exam Known Difficult Airway: No Mallampati Class: 2 Mouth Opening: Normal (> 3cm) Thyromental Distance: Greater than 3 cm Neck Range of Motion: Full ROM Neck Circumference: Normal Teeth Condition: Normal Dentition ASA Classification ASA Score: ASA 2 Emergency Case?: No NPO Status NPO Status: NPO Clears >2 hours, Solids >8 hours Anesthesia Plan Resuscitation Status: Full Code Anesthesia Technique: General Anesthesia Airway Planned: Natural Airway Monitors Used: Standard Monitors
[2023-07-25 10:09] VITALS: BMI 28.9
[2023-07-25] MEDS: Lidocaine 1% Multi-Dose W/EPI 1/100,000 50 ML VIAL (10:41)
--- NOTE | 2023-07-25 10:47 | BOWEL_PTH ---
PATIENT: Jefry Guadarrama LOC: [facility] U#:[id number] AGE/SX: 62/M ROOM: RE07/25/[address]: Ramy Knapp MD : 1960 BED: DIS: 07/25/2023 SPEC #: [id number] RECD: 07/25/23 13:03 STATUS: LARA RE #: [id number] KARLENE: 07/25/23 10:[address]: Ramy Knapp DEPT: Surgical Specimen RECD BY: Althea Santos ENTERED: 07/25/23 13:05 SP TYPE: Bowel OTHR DR: Dom Kennedy Tissues: 1 - SKIN BIOPSY(SHAVE/PUNCH) 2 - BIOPSY BOWEL Procedures: GROSS AND MICRO LEVEL 4 SKIN LEVEL 4 Comments: [id number]
[2023-07-25 11:25] VITALS: BP 90/62; PULSE 83; RESP 18; TEMP 36.7; O2SAT 96
--- NOTE | 2023-07-25 11:42 | W.ANESPOSTOP ---
Postoperative Evaluation Date, Time and Location Date Performed: 07/25/23 Time Performed: 11:42 Patient Location: Day Surgery Unit Vital Signs Most Recent Imported Vital Signs: Most Recent Vital Signs Temp Pulse Resp BP Pulse Ox 36.7 C 83 18 90/62 L 96 07/25/23 11:25 07/25/23 11:25 07/25/23 11:25 07/25/23 11:25 07/25/23 11:25 Pain Score Most Recent Pain Score: Most Recent Pain Score Pain Level 0 07/25/23 09:05 Assessment Mental Status: Awake (Alert & Oriented to Patient Baseline) Airway and Respiratory Function: Patent airway with normal (patient baseline) respiratory exam Cardiovascular Function: Hemodynamically Stable Hydration Status: Adequately Hydrated Nausea & Vomiting: No Nausea or Vomiting Pain: Pt. Denies Any Pain Peripheral Nerve Block: Patient did not receive a nerve block
--- NOTE | 2023-07-25 11:43 | ROE_ITS ---
Date of service: 07/25/23 Time of Service: 11:43 Operative Note Operative Note DATE OF PROCEDURE: 07/25/23 PRE-OP DIAGNOSIS: Pigmented skin lesion POST-OP DIAGNOSIS: same (Colon polyp (from colonoscopy dictated elsewhere), righ t medial knee skin lesion) PROCEDURE: Incisional biopsy of pigmented skin lesion SURGEON: Ramy Knapp ANESTHESIA TYPE: Local By Surgeon and MAC Refer to Anesthesia Record ESTIMATED BLOOD LOSS: 5 PATHOLOGY: other (0.75 cm polyp at 75 cm from the anus) COMPLICATIONS: None Patient was transported to: same day Indications: Jefry is a 62-year-old male who was previously undergone excision of what he thinks was a vascular skin lesion on the medial aspect of his right knee many years ago. This defect was closed with a skin graft. Over the past several years, is developed increasing area of slightly purple pigmented papules in the area. They are not tender. They do not bleed. He does report a family history of melanoma. Procedure Description: After the induction of general anesthesia by way of the natural airway, the patient's right knee was prepped and draped. I established a generous field block using local anesthetic with epinephrine. Next, I incised the skin with a 15 blade scalpel. I made a semielliptical excision cutting down through all layers of the skin. The specimen included the pigmented area of skin, as well as surrounding normal-appearing skin. I this from the deep fat tissues with sharp excision using the scalpel. There was minimal bleeding. Specimen was passed off the field. It was not oriented as this was just a small incisional biopsy. Surgical site was gently irrigated. It was hemostatic with just minimal pressure. Deep skin was closed with an interrupted Vicryl stitch, the dermal layer was closed with skin affix. A Band-Aid was applied.
[2023-07-25 11:54] VITALS: BP 113/70; PULSE 74; RESP 18; TEMP 37; O2SAT 96
== END 2023-07-25 12:34 | disposition home or self-care (01) ==
LOC: SUR 08:50
PROVIDERS: PCP Family Medicine; Visit Provider Surgery
PROC: 0DJD8ZZ Inspection of Lower Intestinal Tract, Via Natural or Artificial Opening Endoscopic (ICD-10-PCS; CPT 45378; principal; 2023-07-25 11:15)
PROC: (CPT 45380; 2023-07-25 11:15)
DX: Z12.11 Encounter for screening for malignant neoplasm of colon (principal); D12.4 Benign neoplasm of descending colon; D18.01 Hemangioma of skin and subcutaneous tissue; I10 Essential (primary) hypertension
CPT/HCPCS: 45380; 11400; 12031; 88305; J2001

== ENCOUNTER 2023-07-28 17:21 | Emergency (ER) | payer BC, SELFPAY ==
[2023-07-28] VITALS (20 sets, daily range): BP systolic 135–171; BP diastolic 71–90; PULSE 66–84; RESP 9–20; TEMP 36.9; O2SAT 97
--- NOTE | 2023-07-28 17:15 | RT.EKG_ITS ---
APPROVED REPORT Exam: Resting ECG Reason for Exam: chest pain Patient Location: E HR:67 bpm ECG Measurements Heart Rate 67 AXIS ME 189 P 79 QRSd 101 QRS 71 QT 399 T 40 QTc 422 Conclusion Sinus rhythm...normal P axis, V-rate 60- 99 NSR, Normal axis, normal intervals, No STEMI, Twave flattening in III, no previous available for sallie venegas
--- NOTE | 2023-07-28 18:15 | DI.RAD_ITS ---
Exam(s) XR CHEST 2V PA LATERAL EXAM: XR CHEST 2V PA LATERAL CLINICAL HISTORY: Shortness of breath TECHNIQUE: 2D digital imaging was performed. COMPARISON: CR CHEST 2 VIEWS PA,LAT from 12/17/2013 FINDINGS: HEART: Normal size. Aorta: Not dilated. PULMONARY VASCULATURE: Normal. LUNGS: Clear. PLEURAL SPACE: No pleural effusion or pneumothorax. BONE:Flowing osteophytes in the spine Soft tissues: Unremarkable. IMPRESSION: No acute abnormality. DATA REPOSITORY: RADIATION DOSE DELIVERED:
[2023-07-28 18:34] LABS: Abs Immature Grans 0.01 10^3/uL (0.0-0.06); Absolute Basophil Count 0.03 10^3/uL (0.0-0.2); Absolute Eosinophil Count 0.28 10^3/uL (0.0-0.7); Absolute Lymphocyte Count 2.05 10^3/uL (1.2-3.4); Absolute Neutrophil Count 1.51 10^3/uL (1.2-6.7); Basophils % 0.7; Eosinophils % 6.4; HCT 41.2 % (40.0-50.0); HGB 14.2 g/dL (13.5-17.5); Immature Grans % 0.2; Lymphocytes % 46.8; MCH 31.5 pg (27.0-33.0); MCHC 34.5 % (32.0-36.0); MCV 91 fL (80-95); MPV 8.7 fL (8.0-11.0); Monocytes % 11.4; Neutrophils % 34.5; Platelet Count 278 10^3/uL (130-400); RBC 4.51 10^6/uL (4.36-5.78); RDW-SD 40.7 fL; WBC 4.38 10^3/uL (4.4-10.8)
[2023-07-28] MEDS: Albuterol/Ipratropium 3 ML UPD VIAL UPD (18:38)
[2023-07-28 19:03] LABS: ALT 21 U/L (16-63); AST 22 U/L (15-37); Albumin 3.6 g/dL (3.4-5.0); Alkaline Phosphatase 64 U/L (46-116); Anion Gap 7.3 mmol/L (3-11); BUN 18 mg/dL (7-18); Bilirubin, Total 0.4 mg/dL (0.2-1.0); CO2 29.7 mmol/L (21.0-32.0); CREATININE 1.1 mg/dL (0.70-1.30); Calcium 8.9 mg/dL (8.5-10.1); Chloride 100 mmol/L (98-107); Estimated GFR 75.43 (mL/min/1.73m2); Glucose 117 mg/dL (74-106); Magnesium 1.9 mg/dL (1.8-2.4); NT-proBNP 70 pg/mL (<300); Potassium 3.7 mmol/L (3.5-5.1); Sodium 137 mmol/L (136-145); Total Protein 7.6 g/dL (6.4-8.2); Troponin I < 50 ng/L (<or=60)
--- NOTE | 2023-07-28 19:08 | ED.GENADUL_ITS ---
Discharge Plan Disposition Patient Disposition: Home Discharge Details Clinical Impression: Influenza A, Acute bronchospasm, Chest pain Primary Care Provider: Dom Kennedy ED Provider: Daniela Drew Home Meds and New Rx's Prescriptions: New albuterol sulfate 90 mcg/actuation HFA aerosol inhaler 3 puff inhalation QID MDD 3 puffs every 4 hours PRN (Reason: shortness of breath or wheezing) Qty: 6.7 0RF No Action sildenafil 100 mg Tablet 100 mg PO DAILY PRN Patient Comments: not taking tamsulosin 0.4 mg Capsule 0.4 mg PO DAILY bupropion HCl 150 mg tablet extended release 24 hr 150 mg PO QAM insulin glargine [Lantus Solostar U-100 Insulin] 100 unit/mL (3 mL) insulin pen 20 unit subcut .QD empagliflozin 25 mg tablet 25 mg PO DAILY gabapentin 100 mg capsule See Rx Instructions PO QHS PRN Rx Instructions: orally every day at bedtime PRN; orally every day at bedtime; 1-3 tabs; fluoxetine 40 MG capsule 40 mg PO DAILY Patient Comments: not taking metformin 500 mg tablet extended release 24 hr 1,500 mg PO DAILY Discharge Instructions Instructions: Chest Pain (ED), H1N1 Influenza (ED), Bronchospasm (ED) Additional Instructions: Return here for any new or worrisome symptoms. Use your albuterol MDI plus spacer, 3 puffs, 5 minutes apart, every 4 hours as needed for cough and/or wheezing. Return here for any new or worrisome symptoms. Follow-up with your primary care provider as needed Stand Alone Forms: Work Release Discharge Data Discharge Physician: Daniela Drew Medical Decision Making This patient presents with chest pain which is worse with deep expiration and intermittent wheezing. He does have a history of pneumonia. He is a non- smoker. Although he has some risk factors for heart disease he has had a fever and constant pain which is not worse with exertion. He has no leg pain or swelling I doubt he has a PE. This is most likely a viral infection such as COVID or influenza. His EKG is normal and reassuring. We will check a 1 set of cardiac enzymes and blood work and we will give him an DuoNeb and if his symptoms improve we will discharge him with an albuterol MDI plus spacer. He has normal O2 sat and is able to speak in full sentences. There are no retractions or nasal flaring. We will check a chest x-ray to rule out pneumonia. Differential Diagnosis Differential Diagnosis: COVID, influenza, pneumonia, Medical Records Medical records reviewed: Yes I reviewed the patient's medical records. Imaging Data Radiologic Study: Imaging: X-Ray (PA and lateral chest x-ray) Lab Data Lab results reviewed: Yes I reviewed the patient's lab results. ECG Data Attestation: I personally reviewed and interpreted this ECG (s) as follows: Prior ECG tracings: available for review HPI General Date/Time Provider Initiated Documentation: 07/28/23 17:25 . Limitations to Documentation: no limitations . Information obtained by: patient . HPI Narrative: Time seen was 1740 in bed 1. The patient is a 61-year-old male with a history of insulin-dependent diabetes for 20 years, but no history of ACS, hypercholesterolemia or significant family history of coronary artery disease who presents with an illness that began on July 23 with a fever of 101.7 taken orally. Since then he has had chest pain and nonproductive cough. The chest pain is worse now by inspiration but expiration. He has no history of thromboembolic disease. He does state he is short of breath. He has no history of asthma but thinks he may have used inhaler in the past. He does not have a wood stove at home. He had a screening colonoscopy on the done here. They took a biopsy and also a skin biopsy. Patient states he has had immunizations for COVID and flu. His chest pain is located in the substernal area. It is 2 out of 10 in severity. It does not radiate. He denies any leg pain or swelling. His has also been ill. His pain does not radiate. His sputum is nonproductive. He does tell me that his chest pain is aggravated by coughing and laughing. He did take a recent trip to [place] several weeks ago. He tells me his chest pain has been constant since this morning. It is not worse with deep inspiration. He does have a history of pneumonia. Related Data Home Medications Medication Instructions Recorded Confirmed fluoxetine 40 mg capsule 40 mg PO DAILY 06/14/13 07/25/23 sildenafil 100 mg tablet 100 mg PO DAILY PRN 04/20/19 07/25/23 tamsulosin 0.4 mg capsule 0.4 mg PO DAILY 04/20/19 07/25/23 bupropion HCl 150 mg 24 hr tablet, 150 mg PO QAM 02/17/23 07/25/23 extended release empagliflozin 25 mg tablet 25 mg PO DAILY 02/17/23 07/22/23 insulin glargine 100 unit/mL (3 20 unit subcut .QD 02/17/23 07/25/23 mL) subcutaneous pen (Lantus Solostar U-100 Insulin) gabapentin 100 mg capsule See Rx Instructions PO QHS PRN 07/18/23 07/25/23 metformin 500 mg tablet,extended 1,500 mg PO DAILY 07/18/23 07/25/23 release 24 hr albuterol sulfate 90 mcg/actuation 3 puff inhalation QID PRN 07/28/23 aerosol inhaler shortness of breath or wheezing #6.7 grams Previous Rx's Medication Instructions Recorded albuterol sulfate 90 mcg/actuation 3 puff inhalation QID PRN 07/28/23 aerosol inhaler shortness of breath or wheezing #6.7 grams Allergies Allergy/AdvReac Type Severity Reaction Status Date / Time ENVIRONMENTAL/DOGS/CATS Allergy Mild ITCHY Uncoded 07/25/23 08:54 WATERY EYES General Stated Complaint: Chest Pain SAM: 3 Review of Systems Narrative: see hpi ENT Comments: Slight left ear pain no discharge or change in hearing. Minimal rhinorrhea. PFSH All Active Problems (Updated 07/28/23 @ 19:21 by Daniela Drew MD) Chest pain (Acute) Acute bronchospasm (Acute) Influenza A (Acute) Screen for colon cancer (Acute) Atypical pigmented skin lesion (Acute) Colon adenomas (Acute) 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) [place]-Schlatter's disease (Acute) Hyperlipidemia (Acute) Sensorineural hearing loss (SNHL) of right ear with unrestricted hearing of left ear (Acute) Pain of right patellofemoral joint (Acute) Pain of left patellofemoral joint (Acute) Primary hypoadrenalism (Acute) Dysthymic disorder (Acute) HTN (hypertension) (Chronic) Insulin dependent type 2 diabetes mellitus (Acute) Degenerative joint disease (DJD) of lumbar spine (Acute) Decreased hearing of both ears (Acute) Lumbar radiculitis (Acute) Medical History (Updated 12/14/23 @ 19:21 by Daniela Drew MD) Seborrheic keratosis (07/15/14) Neoplasm of skin (07/08/14) History of Lyme disease 01/10/23 (swollen, cellulitis with doxycycline). Gross hematuria BMI 28.0-28.9,adult Lower urinary tract symptoms (LUTS) Balanitis Concussion Seborrheic keratosis Exposure to hepatitis B Lower urinary tract infection Obesity Surgical History History of removal of nevus Hx of laparoscopic gastric banding (~12/25/10) 2009 colonoscopy (~07/2023) path sent Social History Smoking/Tobacco Use Status: Never Smoking risk assessment performed?: Yes Alcohol Intake: current Alcohol Intake frequency: holidays/special occasions only Drug use: Never Substance use type: does not use Household members: spouse and children Housing: house Number of Children: 1 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 Do you feel safe at home: Yes Do you feel safe in your relationship?: Yes Exam Const General: cooperative, healthy appearing, comfortable, no acute distress, well developed, well groomed and well hydrated Nutritional Appearance: average body habitus and well nourished Orientation: alert, awake and oriented x3 HENFL Head: normal to inspection, normocephalic and atraumatic Ears: hearing grossly normal bilaterally and external ears normal General nose exam: external nose normal, nares normal and no nasal discharge Face and sinus: normal facial exam, sinuses nontender and face symmetric Mouth: oral mucosae normal, lip normal, tongue normal, oropharynx normal, moist mucous membranes and other (Normal phonation. The patient is handling secretions.) Throat: posterior oropharynx normal and uvula midline Eyes General: appearance normal, both eyes and all related structures Eyelids: eyelids normal Conjunctivae: conjunctivae normal Sclera: sclerae normal Cornea: corneas normal Pupils: PERRL EOM: EOM intact bilaterally and No nystagmus Other: The left TM and canal appear normal Neck Neck: normal visual inspection, full ROM, no lymphadenopathy, no meningeal signs, trachea midline and supple Lymphatic: no lymphadenopathy noted Other: No bruits no meningeal signs no JVD Chest Chest: normal inspection of the chest Resp Effort & Inspection: normal respiratory effort, able to speak in complete sentences, audible wheezes (Occasional end expiratory wheezes. No retractions no nasal flaring), cough, no nasal flaring, no respiratory distress, no retractions, no stridor, not tachypneic, no tracheal deviation, no use of accessory muscles, No prolonged expiratory phase and other (Normal inspiratory to expiratory ratio.) Auscultation: clear to auscultation bilaterally, no rales, no rhonchi, wheezes and no rubs Tactile Fremitus: tactile fremitus absent Cardio Jugular venous pressure: no JVD Palpation: normal PMI Rate: regular rate Rhythm: regular rhythm Heart Sounds: S1 normal, S2 normal, no gallops, no murmurs and no rubs GI Inspection: normal to inspection and non-distended Palpation: soft, no hepatosplenomegaly, no guarding and nontender Percussion: normal to percussion Auscultation: normal bowel sounds General: No CVA tenderness Back/Spine/Pelvis Back: no CVA tenderness and No back tenderness Cervical Spine: normal cervical lordosis, cervical ROM normal, No cervical muscular tenderness, No pain with cervical ROM, No cervical spinal tenderness and No step off deformity Thoracic/Lumbar Spine: thoracic and lumbar spine normal to inspection, No thoracic spinal tenderness and No lumbar spinal tenderness Pelvis: no pain with anterior-posterior compression and no pain with lateral compression Skin General skin exam: no rashes or lesions noted, turgor normal, no petechiae, no purpura and other (Skin is normal for ethnicity.) Lesions: no lesions Rashes: no rashes Trauma: no lacerations or abrasions Neuro General: patient alert, patient awake, patient oriented x3, moves all extremities, no meningeal signs, no focal motor deficits and CN's II-XI intact bilaterally Cranial Nerves: CN's II-XI intact bilaterally, PERRL, accommodation normal, EOM intact bilaterally, no nystagmus, facial strength normal, tongue midline, hearing normal and no nystagmus Cognition: normal cognition Speech: speech normal Gait: normal gait Motor: muscle tone normal throughout and strength 5/5 throughout Sensory Exam: no sensory deficits noted Extrem General: normal to inspection, full ROM, capillary refill normal, no clubbing, cyanosis or edema and no calf tenderness Other: The patient has a well-healing biopsy incision of the right medial leg. Psych Appearance: grossly normal Affect: normal affect Attitude: cooperative Thought Process: normal Thought Content: normal Insight: insight good Judgment: judgment good Other: The patient appears to have capacity make medical decisions. Course 1916 I have updated the patient's on his labs and chest x-ray. We will be discharging him home. He is not a candidate for Tamiflu because he is outside the window. I have advised him to use his albuterol MDI plus spacer, 3 puffs, 5 minutes apart every 4 hours as needed for cough and/or wheezing. I have advised him for congestion to use a decongestant during the day and antihistamine at night. I have advised him to return here for any new or worrisome symptoms. The patient voiced understanding agreement with the discharge plan. All his questions and concerns were addressed prior to discharge Vital Signs Vital signs: Vital Signs Temperature 36.9 C 07/28/23 17:24 Pulse 72 07/28/23 17:24 Respiratory Rate 18 07/28/23 17:24 Blood Pressure 171/77 H 07/28/23 17:24 Pulse Oximetry 97 07/28/23 17:24 Temperature 36.9 C 07/28/23 17:24 Temperature Source Temporal Artery Scan 07/28/23 17:24 Pulse 72 07/28/23 17:24 Respiratory Rate 20 07/28/23 17:27 Respiratory Effort Short of Breath 07/28/23 17:27 Respiratory Depth Normal 07/28/23 17:27 Respiratory Pattern Normal 07/28/23 17:27 Blood Pressure 171/77 H 07/28/23 17:24 Blood Pressure Position Supine 07/28/23 17:24 Pulse Oximetry 97 07/28/23 17:24 Oxygen Delivery Method Room Air 07/28/23 17:24 Oxygen Flow Rate 0 07/28/23 17:24 Pain Level 3 07/28/23 17:24 Lab/Test Results Lab/Test Results: Laboratory Tests Range/Units 07/28/23 18:20 WBC (4.4-10.8) 10^3/uL 4.38 L RBC (4.36-5.78) 10^6/uL 4.51 Hgb (13.5-17.5) g/dL 14.2 Hct (40.0-50.0) % 41.2 MCV (80-95) fL 91 MCH (27.0-33.0) pg 31.5 MCHC (32.0-36.0) % 34.5 RDW (11.8-14.1) % 12.0 Plt Count (130-400) 10^3/uL 278 MPV (8.0-11.0) fL 8.7 Immature Gran % 0.2 Neutrophils % 34.5 Lymphocytes % 46.8 Monocytes % 11.4 Eosinophils % 6.4 Basophils % 0.7 Nucleated RBC % (0.0-0.3) % 0.0 Absolute Neutrophils (1.2-6.7) 10^3/uL 1.51 Absolute Lymphocytes (1.2-3.4) 10^3/uL 2.05 Absolute Monocytes (0.1-0.8) 10^3/uL 0.50 Absolute Eosinophils (0.0-0.7) 10^3/uL 0.28 Absolute Basophils (0.0-0.2) 10^3/uL 0.03 Sodium (136-145) mmol/L 137 Potassium (3.5-5.1) mmol/L 3.7 Chloride (98-107) mmol/L 100 Carbon Dioxide (21.0-32.0) mmol/L 29.7 Anion Gap (3-11) mmol/L 7.3 BUN (7-18) mg/dL 18 Creatinine (0.70-1.30) mg/dL 1.1 Est GFR (CKD-EPI 2020) (mL/min/1.73m2) 75.43 Glucose (74-106) mg/dL 117 H Calcium (8.5-10.1) mg/dL 8.9 Magnesium (1.8-2.4) mg/dL 1.9 Total Bilirubin (0.2-1.0) mg/dL 0.4 AST (15-37) U/L 22 ALT (16-63) U/L 21 Alkaline Phosphatase (46-116) U/L 64 Troponin I (<or=60) ng/L < 50 NT-Pro-B Natriuret Pep (<300) pg/mL 70 Total Protein (6.4-8.2) g/dL 7.6 Albumin (3.4-5.0) g/dL 3.6
[2023-07-28 19:31] LABS: D-Dimer 559 ng/mlFEU (<500)
== END 2023-07-28 19:35 | disposition home or self-care (01) ==
PROVIDERS: Emergency Provider Emergency Medicine Emergency Medical Services; PCP Family Medicine
DX: R07.9 Chest pain, unspecified (principal); R06.02 Shortness of breath; J98.01 Acute bronchospasm; J10.1 Influenza due to other identified influenza virus with other respiratory manifestations; E11.9 Type 2 diabetes mellitus without complications; Z79.4 Long term (current) use of insulin; Z79.84 Long term (current) use of oral hypoglycemic drugs; I10 Essential (primary) hypertension; Z79.899 Other long term (current) drug therapy
CPT/HCPCS: 36415; 80053; 87426; 93005; 94640; 99285; 71046; 83735; 83880; 84484; 85025; 85379; 93010; 99284; J7620

== ENCOUNTER 2024-01-05 09:10 | Outpatient (REF) | payer BC, SELFPAY ==
[2024-01-05 15:55] LABS: Abs Immature Grans 0.02 10^3/uL (0.0-0.06); Absolute Basophil Count 0.06 10^3/uL (0.0-0.2); Absolute Lymphocyte Count 1.86 10^3/uL (1.2-3.4); Absolute Monocyte Count 0.49 10^3/uL (0.1-0.8); Basophils % 0.9 %; HCT 40.4 % (40.0-50.0); HGB 13.9 g/dL (13.5-17.5); Immature Grans % 0.3 %; Lymphocytes % 28.1 %; MCH 31.4 pg (27.0-33.0); MCHC 34.4 % (32.0-36.0); MCV 91 fL (80-95); MPV 9.1 fL (8.0-11.0); Monocytes % 7.4 %; Neutrophils % 57.3 %; Platelet Count 298 10^3/uL (130-400); RBC 4.42 10^6/uL (4.36-5.78); RDW 12.1 % (11.8-14.1); RDW-SD 40.7 fL; WBC 6.63 10^3/uL (4.4-10.8)
[2024-01-05 16:22] LABS: Anion Gap 9.3 mmol/L (3-11); BUN 18 mg/dL (7-18); CO2 27.7 mmol/L (21.0-32.0); CREATININE 0.9 mg/dL (0.70-1.30); Calculated LDL 114 mg/dL (<100); Chloride 106 mmol/L (98-107); Cholesterol 192 mg/dL (<200); Estimated GFR 95.37 (mL/min/1.73m2); Glucose 106 mg/dL (74-106); HDL Cholesterol 55 mg/dL (40-60); Sodium 143 mmol/L (136-145); Triglyceride 118 mg/dL (<150)
[2024-01-05 16:41] LABS: COMMENT (LAB VIEW ONLY) 98.87 mg/dL; Microalb ug/mg Crea 12.9 ug/mg Cr
== END 2024-01-05 09:11 | disposition home or self-care (01) ==
LOC: NCHCN 09:10
PROVIDERS: PCP Family Medicine; Visit Provider Student in an Organized Health Care Education/Training Program
DX: E11.9 Type 2 diabetes mellitus without complications (principal); Z12.5 Encounter for screening for malignant neoplasm of prostate
CPT/HCPCS: 80048; 80061; 82043; 82570; 84154; 85025

== ENCOUNTER 2024-03-14 17:01 | Outpatient (REF) | payer BC, SELFPAY ==
--- OUTSIDE RECORDS SUMMARY | 2024-03-14 17:10 | XMS_ITS | Encounter Summary ---
[facility] Organization [facility] Address [facility] [place] [address] Care Team Providers Care Dockworker Name Role Phone Dom Kennedy MD Primary Care Provider [phone] Reason for Visit * Reason Comments Medication Refill Encounter Details Date Type Department Care Team (Late st Contact Info) Description 02/10/2022 [place] [address] Td Blanco MD [facility] [place] [address] Type 2 diabetes mellitus with hyperglycemia, with long-term current use of insulin Social History Tobacco Use Types Packs/Day Years Used Date Smoking Tobacco: Never Smokeless Tobacco: Never Sex and Gender Information Value Date Recorded Sex Assigned at Not on file Gender Identity Not on file Sexual Orientation Not on file documented as of this encounter Miscellaneous Notes * Telephone Encounter - Vilma Elizabeth LPN - 02/12/2022 1:03 PM EDT Requested Prescriptions Pending Prescriptions Disp Refills ??? Lantus Solostar U-100 Insulin 100 unit/mL (3 mL) pen [Pharmacy Med Name: LANTUS SOLOSTAR 100 UNIT/ML] 45 mL 3 Sig: INJECT 40 UNITS UNDER THE SKIN ONCE DAILY Last office visit: 01/29/2021 no future appt's scheduled Last refill: 01/29/2021 documented in this encounter Plan of Treatment Not on file documented as of this encounter Visit Diagnoses Diagnosis Type 2 diabetes mellitus with hyperglycemia, with long-term current use of insulin documented in this encounter Care Teams Dockworker Relationship Specialty Start Date End Date Dom Kennedy MD [address] [place] [address] PCP - General 12/28/16 documented as of this encounter
--- OUTSIDE RECORDS SUMMARY | 2024-03-14 17:10 | XMS_ITS | Encounter Summary ---
Author Organization [facility] Address [address] [place] [address] Care Team Providers Care Abrasive Worker Name Role Phone Dom Kennedy MD Primary Care Provider [phone] Encounter Details Date Type Department Care Team (Late st Contact Info) Description 03/17/2023 Lab Requisition [facility] Pathology & Laboratory Medicine - [address] [phone] Outr Resulting Lab, Provider Social History Tobacco Use Types Packs/Day Years Used Date Smoking Tobacco: Never Assessed Interpersonal Safety Answer Date Record ed Physically Hurt Never 03/16/2020 Verbally Threaten Not on file 03/16/2020 Sex and Gender Information Value Date Recorded Sex Assigned at Not on file Gender Identity Not on file Sexual Orientation Not on file documented as of this encounter Plan of Treatment Not on file documented as of this encounter Procedures Procedure Name Priority Date/Time Associated Diagnosis Comments PSA TOTAL, DIAGNOSTIC Routine 03/17/2023 9:50 EDT documented in this encounter Results * PSA TOTAL, DIAGNOSTIC (03/17/2023 9:50 EDT) PSA 1.1 <=4.5 ng/mL 03/17/2023 22:45 EDT [facility] Blood VENOUS BLOOD / Unknown 03/17/2023 9:50 EDT 03/17/2023 21:48 EDT Narrative [facility] - 03/17/2023 22:45 EDT NOTE: Serum PSA concentration should not be interpreted as absolute evidence for the presence or absence of malignant disease. Assayed on Siemens ADVIA Centaur XPT using chemiluminescent technology.??Values obtained by using different assay methods cannot be used interchangeably. Provider Outr Resulting Lab CHEMISTRY & BLOOD GAS ORDERABLES [facility] [address] [place] [address] documented in this encounter Visit Diagnoses Not on filedocumented in this encounter Care Teams Abrasive Worker Relationship Specialty Start Date End Date Dom Kennedy MD [address] [place], [place] [phone] PCP - General 12/14/18 documented as of this encounter
--- OUTSIDE RECORDS SUMMARY | 2024-03-14 17:10 | XMS_ITS | Encounter Summary ---
Author Organization [facility] [place] [address] Care Team Providers Care Claims Support Specialist Name Role Phone Dom Kennedy MD Primary Care Provider [phone] Reason for Visit * Consultation (Routine) - Closed Specialty Diagnoses / Procedures Referred By Portia stuart Referred To Contact Urology Diagnoses GROSS HEMATURIA Dom Kennedy MD [facility] [place] [address] [facility] [place] [address] Referral ID Status Reason Start Date Expiration Date Visits Re quested Visits Authorized [id number] Closed 05/13/2020 05/13/2021 1 1 Encounter Details Date Type Department Care Team (Late st Contact Info) Description 05/28/2020 8:00 AM EDT [place] [phone] Estrella Hickman MD [facility] [place] [address] Gross hematuria Social History Tobacco Use Types Packs/Day Years [...] - documented in this encounter Patient Instructions * Patient Instructions* Estrella Hickman MD - 05/28/2020 8:00 AM EDT Aim to drink 64 - 80 oz of fluid daily. Most of this should be water. Milk or lemonade is fine. Stop 4 hr prior to bedtime. Stay away from coffee, tea, cola. You should aim for 6 - 8 oz of caffinated drink only Take flomax 0.4 - 2 pills daily documented in this encounter Progress Notes * Estrella Hickman MD - 05/28/2020 8:00 AM EDT Reason for Visit: This is a 59 y.o. male seen at the request of Dom Kennedy MD for Gross hematuria. The hematuria was seen on many occasions on one day in early Apr. He had pain in his penis and wasvoiding q 15 min. It was accompanied by small clots. He was seen by Dom Kennedy MD who advised him to take Pyridium. His UA at that time showed a large amount of hemolyzed blood. Referred him to Nadege Gaona NP at [place] [facility]. He had the following tests and [...] evidence of any calcification. There was symmetric enhancement of both kidneys with prompt excretion. The bladder wall was thick and prostatic enlargement was noted to indent the bladder floor. I have reviewed these films and agree with the read. Although the bladder wall is somewhat thick the bladder is not terribly distended on these films. [...] HEALTH: good REVIEW OF SYSTEMS: Negative. -- INDIVIDUALIZED EDUCATION PLAN AIDE - No headaches or loss of consciousness [...] hematuria documented in this encounter Care Teams Claims Support Specialist Relationship Specialty Start Date End Date Dom Kennedy MD [address] [place] [address] PCP - General 12/28/16 documented as of this encounter
--- OUTSIDE RECORDS SUMMARY | 2024-03-14 17:10 | XMS_ITS | Encounter Summary ---
[facility] [place] [address] Care Team Providers Care Wedger Machine Name Role Phone Dom Kennedy MD Primary Care Provider Reason for Visit * Consultation (Routine) - Closed Specialty Diagnoses / Procedures Referred By Contsue t Referred To Contact Endocrinology Diagnoses Type 2 diabetes mellitus without complications Essential (primary) hypertension Hyperlipidemia, unspecified Dom Kennedy MD [address] [place] [address] [place] [address] Td Blanco MD [facility] [place] [address] Referral ID Status Reason Start Date Expiration Date Visits Re quested Visits Authorized [id number] Closed 12/25/2020 12/25/2021 1 1 Encounter Details Date Type Department Care Team (Latest Contact Info) Description 01/29/2021 10:00 AM EDT TH Visit (TeleHealth) [place] [address] Td Blanco MD [facility] [place] [address] Type 2 diabetes mellitus with hyperglycemia, with long-term current use of insulin Social History Tobacco Use Types Packs/Day Years Used Date Smoking Tobacco: Never Smokeless Tobacco: Never Sex and Gender Information Value Date Recorded Sex Assigned at Not on file Gender Identity Not on file Sexual Orientation Not on file documented as of this encounter Progress Notes * Td Blanco MD - 01/29/2021 10:00 AM EDT Images from the original note were not included. We are seeing this 60 year old man referred by Oksana Ambriz as part of the [facility] Diabetes Outreach program Pre-visit notes: Patient Name: Bert Fox [...] treatment Last Eye Appointment: Aug 2020, 1x/year [facility]. Early signs of cataracts. 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 He says his urine flow is not a problem and he has not had UTI's. This also affords renal protectipon and a modicum of c ardiac protection He is interested in a donna sensor [...] 3 x a year _x__ consultation with endocrinology/office services specialist- 1-2 times a year ___ consultation with in service educator 2 times per year ___ consultation [...] insulin documented in this encounter Care Teams Wedger Machine Relationship Specialty Start Date End Date Dom Kennedy MD [facility] [place] [phone] PCP - General 12/28/16 documented as of this encounter
--- OUTSIDE RECORDS SUMMARY | 2024-03-14 17:10 | XMS_ITS | Encounter Summary ---
Author Organization [facility] [place] [address] Care Team Providers Care Protective Officer Name Role Phone Dom Kennedy MD Primary Care Provider [phone] Reason for Visit * Reason Onset Date Comments Prior Authorization 01/30/2021 Encounter Details Date Type Department Care Team (Late st Contact Info) Description 01/30/2021 Telephone [place] [phone] Faiza Armijo Prior Authorization Social History Tobacco Use Types Packs/Day Years Used Date Smoking Tobacco: Never Smokeless Tobacco: Never Sex and Gender Information Value Date Recorded Sex Assigned at Not on file Gender Identity Not on file Sexual Orientation Not on file documented as of this encounter Miscellaneous Notes * Telephone Encounter - Faiza Armijo - 01/30/2021 7:15 AM EDT Received pa for Jardiance Will complete as soon as possible * Telephone Encounter - Faiza Armijo - 01/30/2021 7:15 AM EDT Medication Prior Authorization Comi Medication name/dose/directions: Jardiance 10mg - once daily Rationale for request: Type II DM Health plan: SAM ([facility]) Authorizing farm loan representative name: Nieves Sent to health plan on: 02/10/21 Health plan decision: Approved Quantity approved: Authorization number: [id number] Start date: 01/11/21 End date: 02/10/22 documented in this encounter Plan of Treatment Not on file documented as of this encounter Visit Diagnoses Not on filedocumented in this encounter Care Teams Protective Officer Relationship Specialty Start Date End Date Dom Kennedy MD [address] [place] [address] PCP - General 12/28/16 documented as of this encounter
--- OUTSIDE RECORDS SUMMARY | 2024-03-14 17:10 | XMS_ITS | Encounter Summary ---
Author Organization [facility] Address [address] [place] [address] Care Team Providers Care Sample Clerk Name Role Phone Dom Kennedy MD Primary Care Provider [phone] Encounter Details Date Type Department Care Team (Late st Contact Info) Description 02/08/2020 Lab Requisition [facility] Pathology & Laboratory Medicine - [address] [phone] Outr Resulting Lab, Provider Social History Tobacco Use Types Packs/Day Years Used Date Smoking Tobacco: Never Assessed Sex and Gender Information Value Date Recorded Sex Assigned at Not on file Gender Identity Not on file Sexual Orientation Not on file documented as of this encounter Plan of Treatment Not on file documented as of this encounter Procedures Procedure Name Priority Date/Time Associated Diagnosis Comments PSA TOTAL, DIAGNOSTIC Routine 02/08/2020 9:15 EDT documented in this encounter Results * PSA TOTAL, DIAGNOSTIC (02/08/2020 9:15 EDT) PSA 1.4 0.0 - 4.5 ng/mL 02/11/2020 9:59 EDT [facility] Blood VENOUS BLOOD / Unknown 02/08/2020 9:15 EDT 02/08/2020 20:44 EDT Narrative [facility] - 02/11/2020 9:59 EDT NOTE: Serum PSA concentration should not be interpreted as absolute evidence for the presence or absence of malignant disease. Assayed on Siemens ADVIA Centaur XPT using chemiluminescent technology.??Values obtained by using different assay methods cannot be used interchangeably. Provider Outr Resulting Lab CHEMISTRY & BLOOD GAS ORDERABLES [facility] [address] [place] [address] documented in this encounter Visit Diagnoses Not on filedocumented in this encounter Care Teams Sample Clerk Relationship Specialty Start Date End Date Dom Kennedy MD [address] [place] [address] PCP - General 12/14/18 documented as of this encounter
--- OUTSIDE RECORDS SUMMARY | 2024-03-14 17:10 | XMS_ITS | Encounter Summary ---
Author Organization [facility] Address [address] [place] [address] Care Team Providers Care Churn Driller Helper Name Role Phone Unknown, Provider Primary Care Provider Encounter Details Date Type Department Care Team (Latest Contact Info) Description 06/15/2013 8:17 EDT - 06/15/2013 23:59 EDT Hospital Encounter [address] [address] Unknown, Provider, Discharge Disposition: Home or Self Care Social History Tobacco Use Types Packs/Day Years Used Date Smoking Tobacco: Never Assessed Sex and Gender Information Value Date Recorded Sex Assigned at Not on file Gender Identity Not on file Sexual Orientation Not on file documented as of this encounter Discharge Disposition Disposition Code Departure Means Destination Home or Self [facility] documented in this encounter Plan of Treatment Not on file documented as of this encounter Visit Diagnoses Not on filedocumented in this encounter Care Teams Churn Driller Helper Relationship Specialty Start Date End Date Unknown, Provider, PCP - General 06/15/13 12/13/18 documented as of this encounter
--- OUTSIDE RECORDS SUMMARY | 2024-03-14 17:10 | XMS_ITS | Encounter Summary ---
Author Organization [facility] [place] [address] Care Team Providers Care Case Filler Name Role Phone Dom Kennedy MD Primary Care Provider [phone] Encounter Details Date Type Department Care Team (Latest Contact Info) Description 07/22/2020 10:26 PM EST - 07/22/2020 11:59 PM EST Hospital [place] [address] Discharge Disposition: Home Social History Tobacco Use Types Packs/Day Years Used Date Smoking Tobacco: Never Smokeless Tobacco: Never Sex and Gender Information Value Date Recorded Sex Assigned at Not on file Gender Identity Not on file Sexual Orientation Not on file documented as of this encounter Medications at Time of Discharge Medication Sig Dispensed Refills Start Date End Date tamsulosin (Flomax) 0.4 mg Capsule Take 2 capsules by mouth daily. 180 tablet 3 05/28/2020 amLODIPine (Norvasc) 2.5 mg Tablet TAKE ONE TABLET BY MOUTH EVERY DAY FOR BLOOD PRESSURE 05/10/2020 meloxicam (MOBIC) 15 mg Tablet TAKE ONE TABLET BY MOUTH EVERY DAY WITH FOOD NEEDED FOR BACK PAIN. 05/09/2020 atorvastatin (LIPITOR) 20 mg Tablet Take 20 mg by mouth daily. 07/28/2015 FLUoxetine (PROZAC) 40 mg Capsule Take 40 mg by mouth daily. 09/02/2015 LEVEMIR FLEXTOUCH Insulin Pen 40 Units daily. 08/07/2015 lisinopril (PRINIVIL;ZESTRIL) 20 mg Tablet Take 20 mg by mouth daily. 08/07/2015 metFORMIN (GLUCOPHAGE-XR) 500 mg Tablet Sustained Release 24 hr Take 500 mg by mouth daily. 08/07/2015 montelukast (SINGULAIR) 10 mg Tablet Take 10 mg by mouth daily. 08/07/2015 BD REGULAR BEVEL NEEDLES 19 x 1 1/2 Needle 09/02/2015 BD INSULIN PEN NEEDLE UF MINI 31 gauge x 3/16 Needle 08/09/2015 VIAGRA 100 mg Tablet 100 mg as needed. 08/21/2015 testosterone cypionate (DEPOTESTOSTERONE CYPIONATE) 200 mg/mL Oil once a week. 08/11/2015 Bydureon BCise 2 mg/0.85 mL Auto-Injector 05/26/2020 01/29/2021 nortriptyline (Pamelor) 25 mg Capsule TAKE ONE CAPSULE BY MOUTH AT BEDTIME FOR PAIN 03/08/2020 01/29/2021 aspirin 81 mg Tablet, Delayed Release (E.C.) Take 1 tablet by mouth daily. 30 tablet 3 09/11/2015 09/08/2020 documented as of this encounter Plan of Treatment Not on file documented as of this encounter Procedures Procedure Name Priority Date/Time Associated Diagnosis Comments COVID-19 PCR Routine 07/22/2020 4:35 PM EST documented in this encounter Results * COVID-19 PCR (07/22/2020 4:35 PM EST) SARS-CoV-2 RNA Not Detected Not Detected [facility] Comment: This result should be interpreted in combination with the clinical observations, patient history and epidemiological information in making a final diagnosis. For testing of asymptomatic individuals, assay performance characteristics and clinical utility have not been evaluated. Testing for SARS-CoV-2 (Severe acute respiratory syndrome coronavirus 2, formerly known as 2019 novel coronavirus or 2019-nCoV) to aid in the diagnosis of COVID-19 is performed using the Young RealTime SARS-CoV-2 Assay as authorized by the FDA Emergency Use Authorization (EUA). This EUA assay is intended for In-vitro Diagnostic (IVD) use with respiratory specimens such as nasopharyngeal swabs collected from individuals during the acute phase of infection. This assay is performed based on the instructions for use provided by [employer] and additional guidance provided by CDC and FDA. Testing is performed in the [facility] Laboratory within the Department of Pathology and Laboratory Medicine at [facility], certified under the Clinical Laboratory Improvement Amendments of 1988 (CLIA), 42 U.S.C. 263a, to perform high complexity tests. Assay performance has been verified according to clinical laboratory regulatory requirements for use with specimens collected from individuals suspected of COVID-19. Test results are provided above. A result of ? Not Detected? indicates that the viral RNA target is not present above the limit of detection, but does not preclude SARS-CoV-2 infection. False negative results may occur if a specimen is improperly collected, transported or handled; if amplification inhibitors are present; or if inadequate numbers of viral particles are present in the specimen. When a diagnostic test is negative, the possibility of a false negative result should be considered in the context of a patient? s recent exposures and the presence of clinical signs and symptoms consistent with COVID-19. A result of ? Detected? indicates that RNA from SARS-CoV-2 was detected and the patient is infected. As required or requested by public health authorities, positive specimens may be sent for additional testing. Positive and negative predictive values for this test are highly dependent on disease prevalence. A result of ? Invalid? indicates that neither the viral RNA targets nor the internal control target was detected. An invalid result suggests the presence of inhibitors. Recollection and re-testing is recommended in the case of an invalid result. CDC COVID-19 criteria for testing on human specimens and clinical management guidance information are available at the CDC Coronavirus Disease 2019 (COVID-19) webpage under ? Information for Healthcare Professionals? (https://www.cdc.gov/coronavirus/2019-ncov/hcp/index.html) Additional information about this and other EUA tests can be found in provider and patient fact sheets at the following FDA website: https://www.fda.gov/medical-devices/negodfsjlxq-niwojpm-4045-pxabx-59-hbfpzepyj- use-a osubkqcizekok-idgkjgl-lliyfut/declf-tzqsaijkxev-tmjc SARS-Cov-2 RNA Source Nasal [facility] Specimen from nose (specimen) Other / Unknown 07/22/2020 4:35 PM EST 07/22/2020 11:24 PM EST Narrative Resulting Agency Comment Spec In Lab Chantel Mcgee MD MICROBIOLOGY - GENER AL ORDERABLES [facility] [place] [address] documented in this encounter Visit Diagnoses Not on filedocumented in this encounter Care Teams Case Filler Relationship Specialty Start Date End Date Dom Kennedy MD [address] [place] [address] PCP - General 12/28/16 documented as of this encounter
--- OUTSIDE RECORDS SUMMARY | 2024-03-14 17:10 | XMS_ITS | Encounter Summary ---
Author Organization [facility] Address [address] [place] [address] Care Team Providers Care Harvest Worker Field Crop Name Role Phone Dom Kennedy MD Primary Care Provider [phone] Encounter Details Date Type Department Care Team (Late st Contact Info) Description 01/14/2021 Lab Requisition [facility] Pathology & Laboratory Medicine - [address] [phone] Outr Resulting Lab, Provider Social History Tobacco [...] Associated Diagnosis Comments PSA TOTAL, DIAGNOSTIC Routine 01/14/2021 9:01 EDT documented in this encounter Results * PSA TOTAL, DIAGNOSTIC (01/14/2021 9:01 EDT) PSA 1.1 0.0 - 4.5 ng/mL 01/14/2021 17:30 EDT [facility] Blood VENOUS BLOOD / Unknown 01/14/2021 9:01 EDT 01/14/2021 15:44 EDT Narrative [facility] - 01/14/2021 17:30 EDT NOTE: Serum PSA concentration should not be interpreted as absolute evidence for the presence or absence of malignant disease. Assayed on Siemens ADVIA Centaur XPT using chemiluminescent technology.??Values obtained by using different assay methods cannot be used interchangeably. Provider Outr Resulting Lab CHEMISTRY & BLOOD GAS ORDERABLES [facility] [address] [place] [address] documented in this encounter Visit Diagnoses Not on filedocumented in this encounter Care Teams Harvest Worker Field Crop Relationship Specialty Start Date End Date Dom Kennedy MD [facility] [place] [address] [place] [address] PCP - General 12/14/18 documented as of this encounter
--- OUTSIDE RECORDS SUMMARY | 2024-03-14 17:10 | XMS_ITS | Encounter Summary ---
[place] [address] Care Team Providers Care Manager Math Name Role Phone Dom Kennedy MD Primary Care Provider Reason for Referral * Consultation (Routine) - Authorized Specialty Diagnoses / Procedures Referred By Portia stuart Referred To Contact Urology Diagnoses Benign prostatic hyperplasia with lower urinary tract symptoms, symptom details unspecified Kade Higuera PA [address] [place] [address] [facility] [place] [address] Referral ID Status Reason Start Date Expiration Date Visits Requested Visits Authorized [id number] Authorized Consult, Test & Treat PCP Updated and/or Approved 01/16/2024 01/15/2025 6 6 Encounter Details Date Type Department Care Team (Late st Contact Info) Description 01/16/2024 Transcribe Orders eDH Incoming Referrals [phone] Kade Higuera PA [address] [place] [address] Benign prostatic hyperplasia with lower urinary tract symptoms, symptom details unspecified Social History Tobacco Use Types Packs/Day Years Used Date Smoking Tobacco: Never Smokeless Tobacco: Never Sex and Gender Information Value Date Recorded Sex Assigned at Not on file Gender Identity Not on file Sexual Orientation Not on file documented as of this encounter Plan of Treatment Scheduled Referrals Name Type Priority Associated Diagnoses Orde r Schedule Referral to Urology Outpatient Referral Routine Benign prostatic hyperplasia with lower urinary tract symptoms, symptom details unspecified Ordered: 01/16/2024 documented as of this encounter Visit Diagnoses Diagnosis Benign prostatic hyperplasia with lower urinary tract symptoms, symptom details unspecified documented in this encounter Care Teams Manager Math Relationship Specialty Start Date End Date Dom Kennedy MD [address] [place] [address] PCP - General 12/28/16 documented as of this encounter
--- OUTSIDE RECORDS SUMMARY | 2024-03-14 17:10 | XMS_ITS | Encounter Summary ---
Author Organization [facility] [place] [address] Care Team Providers Care Chief Pilot Name Role Phone Dom Kennedy MD Primary Care Provider Encounter Details Date Type Department Care Team (Late st Contact Info) Description 09/02/2020 [place] [phone] Ana Maria Medina LNA Social History Tobacco Use Types Packs/Day Years Used Date Smoking Tobacco: Never Smokeless Tobacco: Never Sex and Gender Information Value Date Recorded Sex Assigned at Not on file Gender Identity Not on file Sexual Orientation Not on file documented as of this encounter Miscellaneous Notes * Telephone Encounter - Ana Maria Medina LNA - 09/02/2020 10:00 AM EST Called patient to review allergies and medication. LVM letting him know there is no need to call usback, we will review them the day of. documented in this encounter Plan of Treatment Not on file documented as of this encounter Visit Diagnoses Not on filedocumented in this encounter Care Teams Chief Pilot Relationship Specialty Start Date End Date Dom Kennedy MD [facility] [place] [address] [phone] PCP - General 12/28/16 documented as of this encounter
--- OUTSIDE RECORDS SUMMARY | 2024-03-14 17:10 | XMS_ITS | Encounter Summary ---
Author Organization [facility] Address [address] [place] [address] Care Team Providers Care Forklift Wheel Loader Name Role Phone Unknown, Provider Primary Care Provider [phone] Encounter Details Date Type Department Care Team (Late st Contact Info) Description 07/08/2014 Results Only [facility] [phone] Nasrin Ferguson, [address] [place] [address] Social History Tobacco Use Types Packs/Day Years Used Date Smoking Tobacco: Never Assessed Sex and Gender Information Value Date Recorded Sex Assigned at Not on file Gender Identity Not on file Sexual Orientation Not on file documented as of this encounter Plan of Treatment Not on file documented as of this encounter Procedures Procedure Name Priority Date/Time Associated Diagnosis Comments SURGICAL PATHOLOGY Routine 07/08/2014 17 :33 EST documented in this encounter Results * SURGICAL PATHOLOGY (07/08/2014 17:33 EST) Pathology Report: SURGICAL PATHOLOGY REPORT Reports generated via electronic interface contain original data; however they are lacking the format of the original report. Caution should be taken when reading/interpret ing unformatted reports. Name: ? OPAL JALLOH ? Accession #: ? [id number] ? : ? 1960 (Age: 53) ??M ? Collect Date: ? 07/08/2014 ? Location: ? [facility] ? Receive Date: ? 07/09/2014 ? Provider: NASRIN FERUGSON DO Copy to: URIEL ROSENBERG MD ? Final Pathologic Diagnosis: A. ??SKIN OF CHEONDOISM, RIGHT, SHAVE BIOPSY:- Seborrheic keratosis. B. ??SKIN OF CHEONDOISM, LEFT INFERIOR, SHAVE BIOPSY: - Seborrheic keratosis. C. ??SKIN OF CHEONDOISM, LEFT SUPERIOR, SHAVE BIOPSY: - Seborrheic keratosis. Document reviewed and electronically signed by: BRANDY CAM MD Report ??Date: 07/10/2014 16:39 By the signature above, the attending physician certifies that he/she has personally conducted a gross and/or microscopic examination of the described specimens and rendered or confirmed the above diagnosis. Specimen(s) Received: A. ?Right catholic B. ? Left catholic (inferior) C. ? Left catholic (superior) Clinical History: Hyperpigmented skin lesions; clinical diagnosis code: ??239.2 Gross Description: A. ?Received in formalin labelled with proper patient identification (initials B, R) and 1. right catholic is a shave biopsy of an irregular moran granular friable nodule (1.1 x 0.9 x 0.2 cm). ??Trisected and submitted in A1. B. ?Received in formalin labelled with proper patient identification (initials B, R) and 2. left catholic inferior is a shave biopsy of an irregular moran-cui granular papule (0.5 x 0.4 x 0.1 cm). Bisected and submitted in B1. C. ?Received in formalin labelled with proper patient identification (initials B, R) and 3. left catholic superior is a shave biopsy of moran-white skin (0.7 x 0.5 cm). There is an eccentric irregular cui-brown smooth focally granular papule that measures 0.5 x 0.5 x 0.1 cm. ??Also received is a 0.5 x 0.2 x 0.1 cm irregular cui-brown granular skin fragment. ??Entirely submitted in C1 shave, bisected and C2 skin fragment, intact. Suzy Pecktte 07/10/2014 08:28 AM End of Report [facility] 07/08/2014 17:3 3 EST 07/09/2014 17:33 EST Nasrin Ferguson DO PATHOLOGY ORDER [facility] [address] [place] [address] documented in this encounter Visit Diagnoses Not on filedocumented in this encounter Care Teams Forklift Wheel Loader Relationship Specialty Start Date End Date Unknown, Provider, PCP - General 06/15/13 12/13/18 documented as of this encounter
--- OUTSIDE RECORDS SUMMARY | 2024-03-14 17:10 | XMS_ITS | Encounter Summary ---
Author Organization [facility] [place] [address] Care Team Providers Care Manager Law Name Role Phone Dom Kennedy MD Primary Care Provider [phone] Reason for Visit * Reason Comments Medication Refill Encounter Details Date Type Department Care Team (Late st Contact Info) Description 12/20/2021 Ref[place] [address] Td Blanco MD [facility] [place] [address] Type 2 diabetes mellitus with hyperglycemia, with long-term current use of insulin Social History Tobacco Use Types Packs/Day Years Used Date Smoking Tobacco: Never Smokeless Tobacco: Never Sex and Gender Information Value Date Recorded Sex Assigned at Not on file Gender Identity Not on file Sexual Orientation Not on file documented as of this encounter Miscellaneous Notes * Telephone Encounter - Mateus Arango RN - 12/21/2021 1:24 PM EDT 12/21/21: Patient not following up with Dr Blanco, future refills to come from PCP. documented in this encounter Plan of Treatment Not on file documented as of this encounter Visit Diagnoses Diagnosis Type 2 diabetes mellitus with hyperglycemia, with long-term current use of insulin documented in this encounter Care Teams Manager Law Relationship Specialty Start Date End Date Dom Kennedy MD [address] [place] [address] [place] [id number] PCP - General 12/28/16 documented as of this encounter
--- OUTSIDE RECORDS SUMMARY | 2024-03-14 17:10 | XMS_ITS | Encounter Summary ---
Author Organization [facility] Address [facility] [place] [address] Care Team Providers Care Security Alarm Installer Name Role Phone Dom Kennedy MD Primary Care Provider [phone] Encounter Details Date Type Department Care Team (Late st Contact Info) Description 05/28/2020 11:00 AM EDT Office Visit Urology at [facility], [place] [id number] Estrella Hickman MD [facility] [place] [address] Lower urinary tract symptoms (LUTS); Gross hematuria Social History Tobacco Use Types Packs/Day Years Used Date Smoking Tobacco: Never Smokeless Tobacco: Never Sex and Gender Information Value Date Recorded Sex Assigned at Not on file Gender Identity Not on file Sexual Orientation Not on file documented as of this encounter Patient Instructions * Patient Instructions* Cris Barba LPN - 05/28/2020 11:00 AM EDT Instructions following Cystoscopy Activity: As tolerated by your comfort level. Fluids: You should increase your water today. Avoid coffee, tea and cola. You do not need to [id number] ounces of water today. Urination: You will likely have a small amount of blood in your urine for the next several days. This is normal; however, if you are passing large amounts of blood clots or are unable to void please call our office at [phone] before 5PM or [phone] after hours. Please call if: * you have copious blood in your urine * fevers greater than 101.3 F * you are unable to void The number for questions is [phone] before 5 PM weekdays and [phone] after 5 PM and weekends. Follow-up: With Dr. Hickman in three months office visit documented in this encounter Progress Notes * Estrella Hickman MD - 05/28/2020 11:00 AM EDT Pt is here for a cysto Normal except for a large median lobe, vascular prostate and bladder neck. Imp: Pt with a history of gross hematuria- likely due to his prostate Plan: return to clinic when he rebleeds. Otherwise I will see him in 3 months for his LUTS. documented in this encounter Procedure Notes * Estrella Hickman MD - 05/28/2020 11:00 AM [...] There is a large median lobe in thebladder. The ureteral orifices were in normal position [...] Procedure Name Priority Date/Time Associated Diagnosis Comments NON-COMMUNICABLE DISEASE SPECIALIST FINAL REPORT Routine 05/28/2020 12:31 PM EDT CYTOPATHOLOGY NON-GYNECOLOGICAL Routine 05/28/2020 12:31 PM EDT Gross hematuria CYSTOSCOPY Routine 05/28/2020 11:00 AM EDT Lower urinary tract symptoms (LUTS) documented in this encounter Results * Non-[facility] Final Report (05/28/2020 12:31 PM EDT) Diagnosis Discussion [id number] ? Location: The signing pathologist has (i) examined the relevant preparation(s) for the specimen(s) and (ii) rendered or confirmed the diagnosis(es). . ? Non-[facility] Final DIAGNOSIS Atypical Urothelial Cells See discussion. Electronically signed by: ??Cyndi BRASWELL, Miguel Yuan Verified: ??05/30/2020 ?Cytopathologis t Performed at: ??-[facility] Dept. of Pathology, [place], [place] DISCUSSION Urine, voided: Atypical single urothelial cells, some showing degenerative changes, present. Reference: Prosper MENDEZ, ?? Cuong Small ??DFI. The [employer]ha System for Reporting Urinary Cytology. [place]: Soni; 2016. CLINICAL INFORMATION Specimen Source : Urine, voided Pertinent Clinical Data and Significant Therapy: Hematuria Clinical Impression : Gross hematuria Pertinent Radiologic Findings ??: (not provided) Gross Description: Received ??fresh, approximately 65 mL total volume of ?? clear, yellow fluid. Total Preparation: Liquid-Based Prep 1. 05/30/2020 1:11 PM EDT [facility] URINE SPECIMEN OBTAINED BY CLEAN CATCH PROCEDURE / Unknown 05/28/2020 12:31 PM EDT 05/28/2020 12:31 PM EDT Estrella Hickman MD PATHOLOGY/CYTOL OGY ORDERABLES Performing Organization Address [facility] Co de Phone Number [facility] [place] [address] * Cytopathology Non-Gynecological (05/28/2020 12:31 PM EDT) AP Specimen 05/28/2020 12:3 1 PM EDT 05/28/2020 12:31 PM EDT Narrative [facility] - 05/28/2020 12:31 PM EDT Specimen requisition ordered. ??Separate Pathology report to follow Estrella Hickman MD PATHOLOGY/CYTOL OGY ORDERABLES Performing Organization Address [facility] [place] [address] * Cystoscopy - Today (05/28/2020 11:00 AM EDT) [...] normal - the prostate is very vascular. ?? There is a large median lobe in the bladder. ?? The ureteral orifices were in normal position and effluxed clear urine. The bladder was normal. There were no bladder tumors, ??mucosal abnormalities or bladder stones. The cystoscope was removed. The patient tolerated the procedure without difficulty. There were no complications. The patient ??was given 1 cipro prior to the procedure. Estrella Hickman MD PROCEDURE OR DERABLES documented in this encounter Visit Diagnoses Diagnosis Lower urinary tract symptoms (LUTS) Other symptoms involving urinary system Gross hematuria documented in this encounter Care Teams Security Alarm Installer Relationship Specialty Start Date End Date Dom Kennedy MD [address] [place] [address] PCP - General 12/28/16 documented as of this encounter
--- OUTSIDE RECORDS SUMMARY | 2024-03-14 17:10 | XMS_ITS | Encounter Summary ---
Author Organization [facility] Address [address] [place] [address] Care Team Providers Care Wooden Frame Builder Name Role Phone Dom Kennedy MD Primary Care Provider Encounter Details Date Type Department Care Team (Late st Contact Info) Description 03/18/2023 Lab Requisition [facility] Pathology & Laboratory Medicine - [address] [address] oDm Kennedy MD [address] [place] [address] [place], [place] [id number] Encounter for other general examination Social History Tobacco Use Types Packs/Day Years [...] Priority Date/Time Associated Diagnosis Comments SURGICAL PATHOLOGY Today 03/17/2023 10 :00 EDT Encounter for other general examination documented in this encounter Results * SURGICAL PATHOLOGY (03/17/2023 10:00 EDT) Note to Patient The following pathology results have been interpreted by your pathologist and may be available to you before your health provider has had the opportunity to review them. Please allow time for your provider to receive these results and explore management options, if applicable. 03/21/2023 10:35 EDT [facility] Final Diagnosis A. SKIN OF SYNAGOGUE, LEFT, SHAVE BIOPSY: - Seborrheic keratosis, irritated and inflamed. 03/21/2023 10:35 [facility] Attestation By the signature below, the attending physician certifies that they have 1) personally conducted a gross and/or microscopic examination of the described specimen(s), and/or personally interpreted the results of laboratory testing of the described specimen(s), and 2) personally rendered or confirmed the above diagnosis. 03/21/2023 10:35 [facility] at 1035 Microscopic Description Orthohyperkeratosis and focal parakeratosis thicken the stratum corneum. There is formation of horn pseudocysts. The epidermis is hyperplastic with acanthosis and papillomatosis. The keratinocytes have a basaloid appearance with squamous eddies in many areas. Within the dermis, there is a moderately dense lymphohistiocytic infiltrate. The infiltrate extends into the epidermis with concomitant vacuolar change and keratinocyte necrosis. 03/21/2023 10:35 [facility] Clinical History Fleshy plaque left lutheran, growing SK vs squamous 03/21/2023 10:35 [facility] Gross Description A. Received in formalin labelled with proper patient identification (initials B, R) and left lutheran is a 0.8 x 0.4 by less than 0.1 cm white-moran, mottled, focally papular skin shave which is inked blue, bisected and is submitted in its entirety in A1. FITO CADE(ASCP) 03/18/2023 15:12 03/21/2023 10:35 T [facility] Performing Lab [facility] 03/21/2023 10:35 [facility] Scanned Images 03/21/2023 10:35 [facility] Tissue TISSUE SPECIMEN FROM SKIN / Unknown 03/17/2023 10:00 EDT 03/18/2023 10:03 EDT Dom Kennedy MD PATHOLOGY ORDERABLES [facility] [address] [place] [address] documented in this encounter Visit Diagnoses Diagnosis Encounter for other general examination documented in this encounter Care Teams Wooden Frame Builder Relationship Specialty Start Date End Date [place] [address] PCP - General 12/14/18 documented as of this encounter
--- OUTSIDE RECORDS SUMMARY | 2024-03-14 17:10 | XMS_ITS | Referral Summary ---
Author Organization [facility] Address [address] [place] [address] Care Team Providers Care Noxious Weeds And Pest Inspector Name Role Phone Dom Kennedy MD Primary Care Provider [phone] Social History Tobacco Use Types Packs/Day Years Used Date Smoking Tobacco: Never Assessed Interpersonal Safety Answer Date Record ed Physically Hurt Never 03/16/2020 Verbally Threaten Not on file 03/16/2020 Sex and Gender Information Value Date Recorded Sex Assigned at Not on file Gender Identity Not on file Sexual Orientation Not on file Plan of Treatment Not on file Care Teams Noxious Weeds And Pest Inspector Relationship Specialty Start Date End Date Dom Kennedy MD [address] [place] [address] PCP - General 12/14/18
--- OUTSIDE RECORDS SUMMARY | 2024-03-14 17:10 | XMS_ITS | Encounter Summary ---
Author Organization [facility] Address [address] [place] [address] Care Team Providers Care Senior Sql Developer Name Role Phone Unknown, Provider Primary Care Provider [phone] Encounter Details Date Type Department Care Team (Late st Contact Info) Description 12/11/2018 Results Only [facility] [phone] Maria Guadalupe Kennedy MD [address] [place] [address] Social History Tobacco Use Types Packs/Day Years Used Date Smoking Tobacco: Never Assessed Sex and Gender Information Value Date Recorded Sex Assigned at Not on file Gender Identity Not on file Sexual Orientation Not on file documented as of this encounter Plan of Treatment Not on file documented as of this encounter Procedures Procedure Name Priority Date/Time Associated Diagnosis Comments SURGICAL PATHOLOGY Routine 12/11/2018 15 :41 EDT documented in this encounter Results * SURGICAL PATHOLOGY (12/11/2018 15:41 EDT) Pathology Report: SURGICAL PATHOLOGY REPORT Reports generated via electronic interface contain original data; however they are lacking the format of the original report. Caution should be taken when reading/interpretin g unformatted reports. Name: ? OPAL JALLOH ? Accession #: ? [id number] ? : ? 1960 (Age: 57) ??M ? Collect Date: ? 12/11/2018 ? Location: ? [facility] ? Receive Date: ? 12/12/2018 ? Provider: MARIA GUADALUPE KENNEDY MD Copy to: ? Final Pathologic Diagnosis: SKIN OF SCALP, EXCISIONAL BIOPSY: - Seborrheic keratosis. Document reviewed and electronically signed by: ARACELI ZAMORA MD Report ??Date: 12/13/2018 12:58 By the signature above, the attending physician certifies that he/she has personally conducted a gross and/or microscopic examination of the described specimens and rendered or confirmed the above diagnosis. Specimen(s) Received: Excisional biopsy scalp Clinical History: Scalp nodule, growing; keratoacanthosis Gross Description: ? Received in formalin labelled with proper patient identification (initials B, R) and scalp is an ovoid hairbearing skin lesion, 1.0 x 0.9 cm and excised to a depth of 0.5 cm. The surface of the lesion is granular moran-brown. Serially sectioned and entirely submitted as follows: BLOCK ABEL 1- ??tips, reverse en face 2- ??two central sections FITO Wilkins (ASCP) 12/12/2018 4:02 PM End of Report [facility] 12/11/2018 15:4 1 EDT 12/12/2018 15:41 EDT Maria Guadalupe Kennedy MD PATHOLOGY ORDERABLES [facility] [address] [place] [address] documented in this encounter Visit Diagnoses Not on filedocumented in this encounter Care Teams Senior Sql Developer Relationship Specialty Start Date End Date Unknown, Provider, PCP - General 06/15/13 12/13/18 documented as of this encounter
--- OUTSIDE RECORDS SUMMARY | 2024-03-14 17:10 | XMS_ITS | Encounter Summary ---
Author Organization [facility] Address [address] [place] [address] Care Team Providers Care Numerical Control Router Operator Name Role Phone Unknown, Provider Primary Care Provider Encounter Details Date Type Department Care Team (Latest Contact Info) Description 12/11/2018 14:55 EDT - 12/11/2018 23:59 EDT Hospital Encounter [address] [address] Unknown, Provider, Discharge Disposition: Home or Self Care Social History Tobacco Use Types Packs/Day Years Used Date Smoking Tobacco: Never Assessed Sex and Gender Information Value Date Recorded Sex Assigned at Not on file Gender Identity Not on file Sexual Orientation Not on file documented as of this encounter Discharge Disposition Disposition Code Departure Means Destination Home or Self Assisted documented in this encounter Plan of Treatment Not on file documented as of this encounter Visit Diagnoses Not on filedocumented in this encounter Care Teams Numerical Control Router Operator Relationship Specialty Start Date End Date Unknown, Provider, PCP - General 06/15/13 12/13/18 documented as of this encounter
--- OUTSIDE RECORDS SUMMARY | 2024-03-14 17:10 | XMS_ITS | Encounter Summary ---
Author Organization [facility] Address [facility] [place] [address] Care Team Providers Care Service Vehicle Operator Name Role Phone Dom Kenndey MD Primary Care Provider [phone] Encounter Details Date Type Department Care Team (Late st Contact Info) Description 09/08/2020 11:20 AM EST Office Visit Urology at [place] [phone] Estrella Hickman MD [facility] [place] [address] Gross hematuria; Benign localized prostatic hyperplasia with lower urinary tract symptoms (LUTS) Social History Tobacco Use Types Packs/Day Years [...] - documented in this encounter Progress Notes * Estrella Hickman MD - 09/08/2020 11:20 AM [...] milk. Most days he has a large teaat DD - now Vanilla spice (no tea). [...] Referred him to Nadege Gaona NP at [place] [facility]. He had the following tests and [...] HEALTH: good REVIEW OF SYSTEMS: Negative. -- NURSE INTERN - No headaches or loss of consciousness [...] Diagnosis Gross hematuria Benign localized prostatic hyperplasia with lower urinary tract symptoms (LUTS) Benign localized hyperplasia of prostate with urinary obstruction and other lower urinary tract symptoms (LUTS) documented in this encounter Care Teams Service Vehicle Operator Relationship Specialty Start Date End Date Dom Kennedy MD [address] [place] [address] PCP - General 12/28/16 documented as of this encounter
--- OUTSIDE RECORDS SUMMARY | 2024-03-14 17:10 | XMS_ITS | Encounter Summary ---
Author Organization [facility] [place] [place] [address] Care Team Providers Care Planning Engineer Name Role Phone Dom Kennedy MD Primary Care Provider [phone] Reason for Visit * Reason Comments Medication Refill Encounter Details Date Type Department Care Team (Late st Contact Info) Description 02/25/2023 Ref[place] [address] Td Blanco MD [facility] [address] Type 2 diabetes mellitus with hyperglycemia, with [...] insulin documented in this encounter Care Teams Planning Engineer Relationship Specialty Start Date End Date Dom Kennedy MD [facility] [place] [address] PCP - General 12/28/16 documented as of this encounter
--- OUTSIDE RECORDS SUMMARY | 2024-03-14 17:10 | XMS_ITS | Encounter Summary ---
Author Organization [facility] Address [address] [place] [address] Care Team Providers Care Executive Receptionist Name Role Phone Unknown, Provider Primary Care Provider [phone] Encounter Details Date Type Department Care Team (Latest Contact Info) Description 07/12/2014 15:01 EST - 07/12/2014 23:59 EST Hospital Encounter [address] [address] Unknown, Provider, Discharge Disposition: Home or Self Care Social History Tobacco Use Types Packs/Day Years Used Date Smoking Tobacco: Never Assessed Sex and Gender Information Value Date Recorded Sex Assigned at Not on file Gender Identity Not on file Sexual Orientation Not on file documented as of this encounter Discharge Disposition Disposition Code Departure Means Destination Home or Self Penitentiary documented in this encounter Plan of Treatment Not on file documented as of this encounter Visit Diagnoses Not on filedocumented in this encounter Care Teams Executive Receptionist Relationship Specialty Start Date End Date Unknown, Provider, PCP - General 06/15/13 12/13/18 documented as of this encounter
--- OUTSIDE RECORDS SUMMARY | 2024-03-14 17:10 | XMS_ITS | Clinical Summary ---
Author Organization Formerly [facility], 1928–1983 Address [facility] [place] [address] Care Team Providers Care Hogshead Inspector Name Role Phone Dom Kennedy MD Primary Care Provider [phone] Allergies Active Allergy Reactions Criticality Noted Date Comments Cat/Feline Products Trazodone Other (See Comments) 03/30/2012 Medications Medication Sig Dispensed Refills Start Date End Date Status atorvastatin (LIPITOR) 20 mg Tablet Take 20 mg by mouth daily. 07/28/2015 Active FLUoxetine (PROZAC) 40 mg Capsule Take 40 mg by mouth daily. 09/02/2015 Active LEVEMIR FLEXTOUCH Insulin Pen 40 Units daily. 08/07/2015 Active lisinopril (PRINIVIL;ZESTRIL) 20 mg Tablet Take 20 mg by mouth daily. 08/07/2015 Active metFORMIN (GLUCOPHAGE-XR) 500 mg Tablet Sustained Release 24 hr Take 500 mg by mouth daily. 08/07/2015 Active montelukast (SINGULAIR) 10 mg Tablet Take 10 mg by mouth daily. 08/07/2015 Active BD REGULAR BEVEL NEEDLES 19 x 1 1/2 Needle 09/02/2015 Active BD INSULIN PEN NEEDLE UF MINI 31 gauge x 3/16 Needle 08/09/2015 Active VIAGRA 100 mg Tablet 100 mg as needed. 08/21/2015 Active testosterone cypionate (DEPOTESTOSTERONE CYPIONATE) 200 mg/mL Oil once a week. 08/11/2015 Active tamsulosin (Flomax) 0.4 mg Capsule Take 2 capsules by mouth daily. 180 tablet 3 05/28/2020 Active amLODIPine (Norvasc) 2.5 mg Tablet TAKE ONE TABLET BY MOUTH EVERY DAY FOR BLOOD PRESSURE 05/10/2020 Active meloxicam (MOBIC) 15 mg Tablet TAKE ONE TABLET BY MOUTH EVERY DAY WITH FOOD NEEDED FOR BACK PAIN. 05/09/2020 Active empagliflozin (Jardiance) 10 mg TabletIndications:T ype 2 diabetes mellitus with hyperglycemia, with long-term current use of insulin Take 10 mg by mouth daily. 90 tablet 3 01/29/2021 Active flash glucose scanning reader (FreeStyle Arleen 14 Day Cochran) MiscIndications:Typ e 2 diabetes mellitus with hyperglycemia, with long-term current use of insulin 1 Device by [facility].(Non-Drug; Combo Route) route as needed. 1 each 01/29/2021 Active FreeStyle Arleen 2 Sensor KitIndications:Type 2 diabetes mellitus with hyperglycemia, with long-term current use of insulin CHANGE SENSOR EVERY 14 DAYS DIRECTED FOR CONTINUOUS BLOOD GLUCOSE MONITORING 6 kit 12/21/2021 Active Lantus Solostar U-100 Insulin 100 unit/mL (3 mL) penIndications:Type 2 diabetes mellitus with hyperglycemia, with long-term current use of insulin INJECT 40 UNITS UNDER THE SKIN ONCE DAILY 45 mL 3 02/12/2022 Active Active Problems Problem Noted Date Diagnosed Date Benign localized prostatic h yperplasia with lower urinary tract symptoms (LUTS) 09/08/2020 Gross hematuria 06/03/2020 Atypical chest pain 09/11/2015 Overview (09/11/2015): ?? Nuclear stress test [facility] in 2014 reportedly negative ?? Treadmill stress test [facility] August 21, [address] depression in eliciting mild chest discomfort at 13.5 METs and a peak blood pressure of 224 mmHg Gastroesophageal reflux 09/11/2015 Elevated blood pressure 09/11/2015 Elevated cholesterol 09/11/2015 Depression 09/11/2015 Asthma 09/11/2015 Hx of laparoscopic gastric banding 09/11/2015 Encounters Date Type Department Care Team Description 01/16/2024 Transcribe Orders eD Incoming Referrals [phone] Kade Higuera PA Benign prostatic hyperplasia with lower urinary tract symptoms, symptom details unspecified from Last 3 Months Immunizations Name Administration Dates Next Due Influenza Unspecified Formulation 06/23/2011,08/2009 Pneumococcal Polysaccharide (Pneumovax 23) 08/15 Tdap 01/04/2012 Social History Tobacco Use Types Packs/Day Years Used Date Smoking Tobacco: Never Smokeless Tobacco: Never Sex and Gender Information Value Date Recorded Sex Assigned at Not on file Gender Identity Not on file Sexual Orientation Not on file Last Filed Vital Signs Vital Sign Reading Time Taken Comments Blood Pressure 152/79 09/08/2020 11:44 AM EST Pulse 100 09/08/2020 11:44 AM EST Temperature 36.5 ??C (97.7 ??F) 03/17/2020 1 1:34 AM EDT Respiratory Rate - - Oxygen Saturation 96% 10/30/2015 1:0 1 PM EDT on room air Inhaled Oxygen Concentration - - Weight 88.2 kg (194 lb 6.4 oz) 03/17/2020 11:34 AM EDT Height 175.3 cm (5' 9) 12/05/2015 10:0 0 AM EDT Sourced from [facility] Body Mass Index 28.71 12/05/2015 10:00 AM EDT Plan of Treatment Health Maintenance Due Date Last Done Comments CT Colonography 1960 Colonoscopy 1960 Colorectal Cancer Screening 1960 FIT DNA 1960 FIT 1960 Sigmoidoscopy (10 year) with FIT yearly 1960 Sigmoidoscopy 1960 HIV screen 12/25/1977 Hepatitis C Screening 12/25/1977 Zoster vaccine (1 of 2) 12/25/2009 Advance Directive 12/25/2014 Tetanus vaccine 01/03/2022 01/04/2012 Covid-19 Vaccine ( - 2022-24 season) 2023 Influenza (Flu) vaccine (1 o f 1 - Influenza standard series) 04/15/2024 06/23/2011, 05/15/2010 Diabetes Screening (HgbA1C or Glucose) Discontinued Tdap adult Completed 01/04/2012 Procedures Procedure Name Priority Date/Time Associated Diagnosis Comments HEMOGLOBIN A1C Routine 12/10/2011 9:00 AM EDT from Last 3 Months or Most Recently Relevant to Health Maintenance Results * (ABNORMAL) Hemoglobin A1c (12/10/2011 9:00 AM EDT) Hemoglobin A1C 8.1(EXTER NAL/ABN) <=5.6 percent [facility] RESULT CONVERSION Comment: Sourced from Yolande Wright 12/10/2011 9:00 AM EDT His Bull Provider CHEMISTRY ORDERABL ES [facility] RESULT CONVERSION from Last 3 Months or Most Recently Relevant to Health Maintenance Care Teams Hogshead Inspector Relationship Specialty Start Date End Date Dom Kennedy MD [address] [place] [id number] PCP - General 12/28/16
--- OUTSIDE RECORDS SUMMARY | 2024-03-14 17:10 | XMS_ITS | Clinical Summary ---
Author Organization [facility] Address [address] [place] [address] Care Team Providers Care Date Night Caregiver Name Role Phone Dom Kennedy MD Primary Care Provider [phone] Social History Tobacco Use Types Packs/Day Years Used Date Smoking Tobacco: Never Assessed Interpersonal Safety Answer Date Record ed Physically Hurt Never 03/16/2020 Verbally Threaten Not on file 03/16/2020 Sex and Gender Information Value Date Recorded Sex Assigned at Not on file Gender Identity Not on file Sexual Orientation Not on file Plan of Treatment Health Maintenance Due Date Last Done Comments Hepatitis C Screen 1960 RSV Immunization ( o r 60+ Years) (1 - 1-dose 60+ series) 2019 COVID-19 Vaccine (2022-24 season) 2023 Care Teams Date Night Caregiver Relationship Specialty Start Date End Date Dom Kennedy MD [facility] [place] [address] PCP - General 12/14/18
--- OUTSIDE RECORDS SUMMARY | 2024-03-14 17:10 | XMS_ITS | Encounter Summary ---
Author Organization [facility] Address [address] [place] [address] Care Team Providers Care Blocker And Sewer Name Role Phone Dom Kennedy MD Primary Care Provider [phone] Encounter Details Date Type Department Care Team (Late st Contact Info) Description 07/25/2023 Lab Requisition [facility] Pathology & Laboratory Medicine - [address] [address] Ramy Knapp MD [address] [place] [address], [address] [place] [address] Encounter for screening for malignant neoplasm of colon Social History Tobacco Use Types Packs/Day Years [...] Date/Time Associated Diagnosis Comments SURGICAL PATHOLOGY Today 07/25/2023 10 :47 EST Encounter for screening for malignant neoplasm of colon documented in this encounter Results * SURGICAL PATHOLOGY (07/25/2023 10:47 EST) Note to Patient The following pathology results have been interpreted by your pathologist and may be available to you before your health provider has had the opportunity to review them. Please allow time for your provider to receive these results and explore management options, if applicable. 07/26/2023 16:08 EST [facility] Final Diagnosis A. SKIN BELOW KNEE, RIGHT, EXCISION: - Hemangioma. B. COLON POLYP, 75 CM, BIOPSY: - Tubular adenoma. See comment. 07/26/2023 16:08 [facility] Diagnosis Comment Specimen B been reviewed by Dr. Barba who concurs with the above diagnosis. 07/26/2023 16:08 [facility] Attestation By the signature below, the attending physician certifies that they have 1) personally conducted a gross and/or microscopic examination of the described specimen(s), and/or personally interpreted the results of laboratory testing of the described specimen(s), and 2) personally rendered or confirmed the above diagnosis. 07/26/2023 16:08 [facility] at 1607 Clinical History A. Bx lesion RT knee, vascular appearing skin lesion-pigmented; B. Colon polyp @ 75 cm, screening colonoscopy, polyp 07/26/2023 16:08 [facility] Gross Description A. Received in formalin labelled with proper patient identification (initials B, R) and Bx lesion R knee is an elongated elliptical skin, 1.1 x 0.3 cm which is excised to a depth of 0.5 cm. The skin surface is mottled medium to darker brown. The margin is inked. Serially sectioned and entirely submitted with the tips, reverse en face in A1 and 3 central sections in A2. B. Received in formalin labelled with proper patient identification (initials B, R) and colon polyp @ 75 cm are two moran irregular tissues, 0.4 x 0.3 x 0.2 cm and 0.5 x 0.4 x 0.3 cm. Entirely submitted in B1. FITO TEJEDA(ASCP) 07/26/2023 7:44 07/26/2023 16:08 [facility] Performing Lab [facility] 07/26/2023 16:08 [facility] Scanned Images 07/26/2023 16:08 [facility] Tissue COLON STRUCTURE / Unknown 07/25/2023 10:47 EST 07/25/2023 18:16 EST Tissue specimen (specimen) COLON STRUCTURE / Unknown 07/25/2023 10:47 EST 07/25/2023 18:16 EST Ramy Knapp MD PATHOLOGY ORDERABLES [facility] [address] [place] [address] documented in this encounter Visit Diagnoses Diagnosis Encounter for screening for malignant neoplasm of colon Special screening for malignant neoplasms, colon documented in this encounter Care Teams Blocker And Sewer Relationship Specialty Start Date End Date Dom Kennedy MD [facility] [place] [address] PCP - General 12/14/18 documented as of this encounter
--- OUTSIDE RECORDS SUMMARY | 2024-03-14 17:10 | XMS_ITS | Encounter Summary ---
[place] [address] Care Team Providers Care Production Consultant Name Role Phone Dom Kennedy MD Primary Care Provider Reason for Referral * Consultation (Routine) - Authorized Specialty Diagnoses / Procedures Referred By Portia stuart Referred To Contact Urology Diagnoses Lower urinary tract symptoms (LUTS) Dom Kennedy MD [address] [place] [address] [facility] [place] [address] Referral ID Status Reason Start Date Expiration Date Visits Requested Visits Authorized [id number] Authorized Consult, Test & Treat PCP Updated and/or Approved 3 06/27/2024 6 6 Encounter Details Date Type Department Care Team (Latest Contact Info) Description 07/05/2023 Transcribe Orders eD Incoming Referrals [phone] Dom Kennedy MD [address] [place] [address] Lower urinary tract symptoms (LUTS) Social History Tobacco [...] Schedule Referral to Urology Outpatient Referral Routine Lower urinary tract symptoms (LUTS) Ordered: 07/05/2023 documented as of this encounter Visit Diagnoses Diagnosis Lower urinary tract symptoms (LUTS) Other symptoms involving urinary system documented in this encounter Care Teams Production Consultant Relationship Specialty Start Date End Date Dom Kennedy MD [address] [place] [address] PCP - General 12/28/16 documented as of this encounter
--- OUTSIDE RECORDS SUMMARY | 2024-03-14 17:10 | XMS_ITS | Encounter Summary ---
Author Organization [facility] Address [address] [place] [id number] Care Team Providers Care Grading Supervisor Name Role Phone Unknown, Provider Primary Care Provider [phone] Encounter Details Date Type Department Care Team (Late st Contact Info) Description 06/15/2013 Results Only [facility] [phone] Destiny Caldwell, DO [address] [place] [address] Social History Tobacco Use Types Packs/Day Years Used Date Smoking Tobacco: Never Assessed Sex and Gender Information Value Date Recorded Sex Assigned at Not on file Gender Identity Not on file Sexual Orientation Not on file documented as of this encounter Plan of Treatment Not on file documented as of this encounter Procedures Procedure Name Priority Date/Time Associated Diagnosis Comments SURGICAL PATHOLOGY Routine 06/15/2013 22 :04 EDT documented in this encounter Results * SURGICAL PATHOLOGY (06/15/2013 22:04 EDT) Pathology Report: SURGICAL PATHOLOGY REPORT Reports generated via electronic interface contain original data; however they are lacking the format of the original report. Caution should be taken when reading/interpreti ng unformatted reports. Name: ? OPAL JALLOH ? Accession #: ? [id number] ? : ? 1960 (Age: 52) ??M ? Collect Date: ? 06/15/2013 ? Location: ? [facility] ? Receive Date: ? 06/15/2013 ? Provider: DESTINY CALDWELL DO Copy to: URIEL ROSENBERG MD ? Final Pathologic Diagnosis: A. COLON, TRANSVERSE, POLYP, BIOPSY: - ??Tubular adenoma. B. COLON, DESCENDING, POLYP, BIOPSY: - ??Tubular adenoma. Document reviewed and electronically signed by: VENTURA MILTON MD Report ??Date: 06/18/2013 17:24 By the signature above, the attending physician certifies that he/she has personally conducted a gross and/or microscopic examination of the described specimens and rendered or confirmed the above diagnosis. Specimen(s) Received: A. ?Transverse colon polyp B. ? Descending colon polyp Clinical History: History of colon polyps; clinical diagnosis code: ??V12.72 Gross Description: A. ?Received in formalin labelled with proper patient identification (initials B, R) and 1. transverse colon polyp is a single pink-moran tissue fragment (0.6 x 0.3 x 0.3 cm). ??The excision margin is inked black and the specimen is quadrisected. ??Submitted entirely in A1 and A2. B. ?Received in formalin labelled with proper patient identification (initials B, R) and 2. descending colon polyp is a single pink-moran tissue fragment (0.4 x 0.4 x 0.3 cm). ??The excision margin is inked black and the specimen is trisected. ??Submitted entirely in Cookie Grullon ??Maurilio 06/16/2013 09:12 AM End of Report SARAH JOHNSON 06/15/2013 22:0 4 EDT 06/15/2013 22:04 EDT Destiny Caldwell DO PATHOLOGY ORDERABLES Performing Organization Address City/State/[facility] Co de Phone Number SARAH JOHNSON [address] [place] [address] documented in this encounter Visit Diagnoses Not on filedocumented in this encounter Care Teams Grading Supervisor Relationship Specialty Start Date End Date Unknown, Provider, PCP - General 06/15/13 12/13/18 documented as of this encounter
--- OUTSIDE RECORDS SUMMARY | 2024-03-14 17:10 | XMS_ITS | Encounter Summary ---
Author Organization [facility] Address [address] [place] [address] Care Team Providers Care School Bus Driver/Teacher Assistant Name Role Phone Dom Kennedy MD Primary Care Provider [phone] Encounter Details Date Type Department Care Team (Late st Contact Info) Description 02/05/2022 Lab Requisition [facility] Pathology & Laboratory Medicine - [address] [id number] Outr Resulting Lab, Provider Social History Tobacco [...] Associated Diagnosis Comments PSA TOTAL, DIAGNOSTIC Routine 02/05/2022 8:48 EDT documented in this encounter Results * PSA TOTAL, DIAGNOSTIC (02/05/2022 8:48 EDT) PSA 1.6 <=4.5 ng/mL 02/05/2022 21:58 EDT [facility] Blood VENOUS BLOOD / Unknown 02/05/2022 8:48 EDT 02/05/2022 20:06 EDT Narrative [facility] - 02/05/2022 21:58 EDT NOTE: Serum PSA concentration should not be interpreted as absolute evidence for the presence or absence of malignant disease. Assayed on Siemens ADVIA Centaur XPT using chemiluminescent technology.??Values obtained by using different assay methods cannot be used interchangeably. Provider Outr Resulting Lab CHEMISTRY & BLOOD GAS ORDERABLES [facility] [address] [place] [address] documented in this encounter Visit Diagnoses Not on filedocumented in this encounter Care Teams School Bus Driver/Teacher Assistant Relationship Specialty Start Date End Date Dom Kennedy MD [address] [place], [place] [phone] PCP - General 12/14/18 documented as of this encounter
--- OUTSIDE RECORDS SUMMARY | 2024-03-14 17:10 | XMS_ITS | Encounter Summary ---
Author Organization [facility] Address [address] [place] [address] Care Team Providers Care Investment Counselor Name Role Phone Dom Kennedy MD Primary Care Provider [phone] Encounter Details Date Type Department Care Team (Late st Contact Info) Description 10/08/2022 Lab Requisition [facility] Pathology & Laboratory Medicine - [address] [address] Outr Resulting Lab, Provider Social History Tobacco [...] Procedure Name Priority Date/Time Associated Diagnosis Comments ZZCOVID-19 TEST [facility] PCR Today 10/07/2022 12:43 EST COVID-19 TESTING Routine 10/07/2022 12:4 3 EST documented in this encounter Results * COVID-19 TEST [facility] PCR (10/07/2022 12:43 EST) Swab 10/07/2022 12:4 3 EST 10/08/2022 18:40 EST Provider Outr Resulting Lab MICROBIOLOGY - GENERAL ORDERABLES [facility] [address] [place] [address] * COVID-19 TESTING (10/07/2022 12:43 EST) COVID-19 rt-PCR Result Negative Negative 10/09/2022 12:09 EST [facility] Comment: This test has not been FDA cleared or approved. This test has been authorized by FDA under an EUA for use by authorized laboratories. This test has been authorized only for detection of nucleic acid from 2019-nCoV, not for any other viruses or pathogens. This test is only authorized for the duration of the declaration that circumstances exist justifying the authorization of emergency use of in vitro diagnostic tests for detection and/or diagnosis of 2019-nCoV under section 564(b)(1) of Act, 21 U.S.C ?? 360bbb-3(b) (1), unless the authorization is terminated or revoked sooner. Negative results do not preclude 2019-nCoV infection and should not be used as the sole basis for treatment or other patient management decisions. Negative results must be combined with clinical observations, patient history, and epidemiological information. Performed on the MaestroDevher Fusion instrument Performing Lab [facility] 10/09/2022 12:09 EST [facility] Swab 10/07/2022 12:4 3 EST 10/08/2022 18:40 EST Provider Outr Resulting Lab MICROBIOLOGY - GENERAL ORDERABLES [facility] [address] [place] [address] documented in this encounter Visit Diagnoses Not on filedocumented in this encounter Care Teams Investment Counselor Relationship Specialty Start Date End Date Dom Kennedy MD [place] [address] PCP - General 12/14/18 documented as of this encounter
--- OUTSIDE RECORDS SUMMARY | 2024-03-14 17:10 | XMS_ITS | Encounter Summary ---
Author Organization [facility] Address [address] [place] [address] Care Team Providers Care Tinsel Machine Operator Name Role Phone Dom Kennedy MD Primary Care Provider [phone] Encounter Details Date Type Department Care Team (Late st Contact Info) Description 05/09/2020 Lab Requisition [facility] - [address] [id number] Outr Resulting Lab, Provider Social History Tobacco [...] Procedure Name Priority Date/Time Associated Diagnosis Comments DO NOT ORDER STANDALONE - BROAD COVID TEST Today 05/09/2020 10:54 EDT COVID-19 TESTING Routine 05/09/2020 10:5 4 EDT documented in this encounter Results * DO NOT ORDER STANDALONE - BROAD COVID TEST (05/09/2020 10:54 EDT) COVID-19 rt-PCR Result NEGATIVE Negative 05/10/2020 21:36 EDT [facility] Comment: 2019-novel Coronavirus (2019-nCoV) not detected by the qRT-PCR assay. Consider testing for other respiratory viruses or re-collecting for 2019-nCoV testing. Note: Optimum timing for peak viral levels during infections caused by 2019-nCoV have not been determined. Collection of multiple specimens from the same patient may be necessary to detect the virus. Limitations Positive results are indicative of active infection with SARS-CoV-2 but do not rule out bacterial infection or co-infection with other viruses. The agent detected may not be the definite cause of disease. In addition, detection of viral RNA may not indicate the presence of infectious virus or that SARS-CoV-2 is the causative agent for clinical symptoms. Negative results do not preclude SARS-CoV-2 infection and should not be used as the sole basis for patient management decisions. Negative results must be combined with clinical observations, patient history, and epidemiological information. False negative results may also occur if amplification inhibitors are present in the specimen or if inadequate numbers of organisms are present in the specimen. Optimum specimen types and timing for peak viral levels during infections caused by SARS-CoV-2 have not been fully determined. Collection of multiple specimens (types and time points) from the same patient may be necessary to detect the virus. The test was validated for use with upper respiratory specimens obtained via nasopharyngeal or oropharyngeal swabs in VTM, UTM, M4, M5, M6, saline, and MTM media. The performance of this test has not been established for other specimens. Specimens collected using other FDA recommended Specimen Collection Materials listed in the FDA COVID-19 [employer] communication (November 08, 2019) are processed with the caveat that they were not all validated for use with this test and the result must be interpreted in this context. Furthermore, a false negative results may occur if a specimen is improperly collected, transported or handled. If the virus mutates in the RT-PCR target region, SARS-CoV-2 may not be detected or may be detected less predictably. Inhibitors or other types of interference may produce a false negative result. An interference study evaluating the effect of common cold medications was not performed. This test is not FDA-cleared but its performance characteristics were established by our CLIA-certified, CAP-accredited, high complexity laboratory in accordance with CLIA regulations, [employer] (CAP) guidelines (Nov 01, 2019), and FDA guidance (Oct 13, 2019). This test is only for use under the Food and Drug Administration's Emergency Use Authorization. Swab ENTIRE NASOPHARYNX / Unknown 05/09/2020 10:54 EDT 05/09/2020 17:25 EDT Provider Outr Resulting Lab MICROBIOLOGY - GENERAL ORDERABLES [facility] [place], [place] * COVID-19 TESTING (05/09/2020 10:54 EDT) COVID-19 rt-PCR Result NEGATIVE Negative 05/10/2020 23:35 EDT [facility] Comment: 2019-novel Coronavirus (2019-nCoV) not detected by the qRT-PCR assay. Consider testing for other respiratory viruses or re-collecting for 2019-nCoV testing. Note: Optimum timing for peak viral levels during infections caused by 2019-nCoV have not been determined. Collection of multiple specimens from the same patient may be necessary to detect the virus. Limitations Positive results are indicative of active infection with SARS-CoV-2 but do not rule out bacterial infection or co-infection with other viruses. The agent detected may not be the definite cause of disease. In addition, detection of viral RNA may not indicate the presence of infectious virus or that SARS-CoV-2 is the causative agent for clinical symptoms. Negative results do not preclude SARS-CoV-2 infection and should not be used as the sole basis for patient management decisions. Negative results must be combined with clinical observations, patient history, and epidemiological information. False negative results may also occur if amplification inhibitors are present in the specimen or if inadequate numbers of organisms are present in the specimen. Optimum specimen types and timing for peak viral levels during infections caused by SARS-CoV-2 have not been fully determined. Collection of multiple specimens (types and time points) from the same patient may be necessary to detect the virus. The test was validated for use with upper respiratory specimens obtained via nasopharyngeal or oropharyngeal swabs in VTM, UTM, M4, M5, M6, saline, and MTM media. The performance of this test has not been established for other specimens. Specimens collected using other FDA recommended Specimen Collection Materials listed in the FDA COVID-19 [employer] communication (November 08, 2019) are processed with the caveat that they were not all validated for use with this test and the result must be interpreted in this context. Furthermore, a false negative results may occur if a specimen is improperly collected, transported or handled. If the virus mutates in the RT-PCR target region, SARS-CoV-2 may not be detected or may be detected less predictably. Inhibitors or other types of interference may produce a false negative result. An interference study evaluating the effect of common cold medications was not performed. This test is not FDA-cleared but its performance characteristics were established by our CLIA-certified, CAP-accredited, high complexity laboratory in accordance with CLIA regulations, [employer] [place] [employer] (CAP) guidelines (Nov 01, 2019), and FDA guidance (Oct 13, 2019). This test is only for use under the Food and Drug Administration's Emergency Use Authorization. Performing Lab [facility] 05/10/2020 23:35 EDT [facility] Swab 05/09/2020 10:5 4 EDT 05/09/2020 17:25 EDT Provider Outr Resulting Lab MICROBIOLOGY - GENERAL ORDERABLES [facility] [address] [place] [address] [facility] [place], [place] documented in this encounter Visit Diagnoses Not on filedocumented in this encounter Care Teams Tinsel Machine Operator Relationship Specialty Start Date End Date Dom Kennedy MD [address] [place] [address] PCP - General 12/14/18 documented as of this encounter
--- OUTSIDE RECORDS SUMMARY | 2024-03-14 17:10 | XMS_ITS | Encounter Summary ---
Author Organization [facility] Address [facility] [place] [address] Care Team Providers Care Channel Director Name Role Phone Dom Kennedy MD Primary Care Provider Encounter Details Date Type Department Care Team (Late st Contact Info) Description 06/03/2020 Telephone Urology at [facility] [place] [phone] Estrella [place] MD [facility] [place] [address] Social History Tobacco Use Types Packs/Day Years Used Date Smoking Tobacco: Never Smokeless Tobacco: Never Sex and Gender Information Value Date Recorded Sex Assigned at Not on file Gender Identity Not on file Sexual Orientation Not on file documented as of this encounter Miscellaneous Notes * Telephone Encounter - Jacque Santos - 06/03/2020 5:14 PM EDT LMOM to sched 3 MO Follow Up No Testing Marylou documented in this encounter Plan of Treatment Not on file documented as of this encounter Visit Diagnoses Not on filedocumented in this encounter Care Teams Channel Director Relationship Specialty Start Date End Date Dom Kennedy MD [address] [place] [address] [place] [phone] PCP - General 12/28/16 documented as of this encounter
--- OUTSIDE RECORDS SUMMARY | 2024-03-14 17:10 | XMS_ITS | Encounter Summary ---
Author Organization [facility] [place] [address] Care Team Providers Care Supervisor [employer] Name Role Phone Dom Kennedy MD Primary Care Provider [phone] Reason for Visit * Reason Comments Follow-up Encounter Details Date Type Department Care Team ([facility] st Contact Info) Description 03/17/2020 11:30 AM EDT Office Visit General Surgery at [address] [phone] Dom Richardson MD [address] [place] [address] [place] [address] Encounter for adjustment of gastric lap band; Hx of laparoscopic gastric banding Social History Tobacco Use Types Packs/Day Years Used Date Smoking Tobacco: Never Smokeless Tobacco: Never Sex and Gender Information Value Date Recorded Sex Assigned at Not on file Gender Identity Not on file Sexual Orientation Not on file documented as of this encounter Last Filed Vital Signs Vital Sign Reading Time Taken Comments Blood Pressure 120/72 03/17/2020 11:34 AM EDT Pulse 101 03/17/2020 11:34 AM EDT Temperature 36.5 ??C (97.7 ??F) 03/17/2020 11:34 AM E DT Respiratory Rate - - Oxygen Saturation - - Inhaled Oxygen Concentration - - Weight 88.2 kg (194 lb 6.4 oz) 03/17/2020 11:34 AM EDT Height - - Body Mass Index 28.71 12/05/2015 10:00 AM EDT documented in this encounter Progress Notes * Madison Dennis APRN - 03/17/2020 11:30 AM EDT Images from the original note were not included. Chief complaint: The gentleman desires removal of saline from the LAP-BAND fluid for food intolerance. He reports feeling pressure from his to seek medical assistance and insists that is why he is here. HPI: Jefry Guadarrama 59 y.o. with PMH of DM2, HTN, HL, ED, chronic back pain (lumbosacral spondylosis without myelopathy), reflux, asthma, depression, atypical chest pain, possible JERALD, & obesitywith prior lap band placement. Surgical device : Allergan AP large band placed 12/15/[address]Donald Ahuja at [facility]. Preoperative weight: #250 Last adjustment: 12/05/[address] Keo Cardoso at [facility]. 0.25 mL's removed for yellow zone symptomatology. Patient reported 0.75 mL's in band at time of procedure. #214.6 on that date. Review of systems: Since his last adjustment with Dr. Cardoso, he reports a 15-20 pound weight loss. He is experiencing consistently inconsistent food intolerance and the symptoms have been present since the adjustment per his account. He is quite fearful of getting fat again . He does not eat breakfast. In the morning, he takes about 7 pills in the AM including a big metformin tablet & 5 fiber tablets. He take the pills one at a time over the course of a few minutes and sips water to get the pills down. He began the fiber tablets several weeks ago in an effort to gather better control of his diabetes but denies the pills have made the food intolerance situation better or worse. He cannot pinpoint the exact food choices that give him trouble but describes recent intolerance toa cookie, but then good tolerance to a soft pretzel. At times, even fluids give him trouble. Symptoms are primarily in the afternoon and evening. Difficult to get a sense of his food pattern. A1c is 9.7 per his report. He has been eating candy and sugar . He is drinking 48 to 60 ounces of fluid and a non-sugared iced tea daily. Denies issues with constipation. He is able to lay flat and bend over without any reflux. He denies any reflux symptoms or GERD. He denies any fevers, shaking chills, or change in the skin such as redness or inflammation surrounding the port site. He denies any pain at the port site. He is not taking a multivitamin or vitamin D. He recently resumed activities at the gym and is seeing a physical therapist for his knees. He has been referred to a registered dietitian for counseling and that appointment is tomorrow. PSH/Diagnostic History: Last colonoscopy on file at [facility] July 2017 colonoscopy with polyp removals. Seen at [facility] August 2023 lumbar blocks relieve back pain. ?? Nuclear stress test [facility] in 2014 reportedly negative ?? Treadmill stress test [facility] August 21, [address] depression in eliciting mild chest discomfort at 13.5 METs and a peak blood pressure of 224 mmHg Medications 10/30/15 1313 Medication Sig Taking? atorvastatin (LIPITOR) 20 mg Tablet Take 20 mg by mouth daily. FLUoxetine (PROZAC) 40 mg Capsule Take 40 mg by mouth daily. LEVEMIR FLEXTOUCH Insulin Pen 40 Units daily. lisinopril (PRINIVIL;ZESTRIL) 20 mg Tablet Take 20 mg by mouth daily. metFORMIN (GLUCOPHAGE-XR) 500 mg Tablet Sustained Release 24 hr Take 500 mg by mouth daily. montelukast (SINGULAIR) 10 mg Tablet Take 10 mg by mouth daily. BD REGULAR BEVEL NEEDLES 19 x 1 1/2 Needle BD INSULIN PEN NEEDLE UF MINI 31 gauge x 3/16 Needle VIAGRA 100 mg Tablet 100 mg as needed. testosterone cypionate (DEPOTESTOSTERONE CYPIONATE) 200 mg/mL Oil once a week. aspirin 81 mg Tablet, Delayed Release (E.C.) Take 1 tablet by mouth daily. Allergies Allergen Reactions ??? Cat/Feline Products ??? Trazodone Other (See Comments) SOCIAL HISTORY: He is and lives with his in [place], [place]. 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 He has never smoked. He drinks a rare alcoholic beverage. His also has the LAP-BAND. FAMILY HISTORY: His father at 76 with asbestosis. His mother at 65 with metastatic lung cancer. She also had a melanoma which was excised years earlier. He has a brother and sister, both healthy. He has one son, alive and well On physical examination today, BP 120/72 Pulse (!) 101 Temp 36.5 ??C (97.7 ??F) Wt 88.2 kg (194 lb 6.4 oz) BMI 28.71 kg/m?? Body mass index is 28.71 kg/m??. Physical Exam Constitutional: General: He is awake. Appearance: Normal appearance. He is well-developed and normal weight. Abdominal: General: Bowel sounds are normal. Palpations: Abdomen is soft. Tenderness: There is no abdominal tenderness. Psychiatric: Behavior: Behavior is cooperative. Comments: Seems slightly rushed and distracted. Laboratory: No current labs diagnostics or radiology to review. Assessment and Plan: Jefry Guadarrama is a 59 y.o. male. with history of suboptimally controlled type 2 diabetes, hypertension, hyperlipidemia, depression experiencing food intolerance, though he reports seeking care in the office due to the urging of his and not because his symptoms are bothersome or unbearable. Of note, in review of the preoperative notes, there were considerable concerns by the multidisciplinary team regarding Jefry's significant mood dysthymia and inattention to his diabetes and routine health care maintenance. With her by the urging of his or by his own volition, I am encouraged he has presented to the office today and it seems he is taking some steps forward in terms of getting back on track. -Registered dietitian follow-up is essential for complete review of food patterns, habits and choices; recommend exploration of psychological relationship with his weight loss and observation of any behavior consistent with over restricting of calories. -Recommend returning to a preoperative high-protein smoothie or liquid diet over the course of the next 7 to 14 days to allow decrease in inflammation of pouch. -Support return to exercise with recommendation of vigorous cardiovascular activity for at least 30minutes 5 days weekly. -Recommend spreading fiber tablets out throughout the day or switching formulary altogether to gummy chews, Metamucil in divided doses. No more than 1 fiber tablet per hour should he choose to continue. -Multivitamin with thiamine. May benefit from vitamin D deficiency screening. Defer until follow-upappointment. -If symptoms persist, he may require diagnostic evaluation to ensure proper placement and function of the band. The planned procedure was reviewed with the patient. He was placed in the supine position on the procedure table. The skin over the band access port was prepped with alcohol and anesthetized with 1.5mL 1% lidocaine. The band system port was accessed with a 20-gauge Martinez needle. 0.25 mL saline solution was removedfrom the band system. He tolerated her postprocedural beverage without difficulty. Notably, there is at least 5 mL's of saline and his band at the time of procedure. I will see him back in 4 weeks for his next evaluation. documented in this encounter Plan of Treatment Not on file documented as of this encounter Visit Diagnoses Diagnosis Encounter for adjustment of gastric lap band Fitting and adjustment of gastric lap band Hx of laparoscopic gastric banding Bariatric surgery status documented in this encounter Care Teams Supervisor [employer] Relationship Specialty Start Date End Date Dom Kennedy MD [address] [place] [phone] PCP - General 12/28/16 documented as of this encounter
--- OUTSIDE RECORDS SUMMARY | 2024-03-14 17:10 | XMS_ITS | Encounter Summary ---
Author Organization [facility] Address [facility] [place] [address] Care Team Providers Care Licensed Vocational Nurse Name Role Phone Dom Kennedy MD Primary Care Provider [phone] Encounter Details Date Type Department Care Team (Late st Contact Info) Description 05/01/2020 Ancillary Procedure Radiology Library at [facility] [place] [address] Estrella [place] MD [facility] [place] [address] Social History Tobacco Use Types Packs/Day Years Used Date Smoking Tobacco: Never Smokeless Tobacco: Never Sex and Gender Information Value Date Recorded Sex Assigned at Not on file Gender Identity Not on file Sexual Orientation Not on file documented as of this encounter Plan of Treatment Not on file documented as of this encounter Procedures Procedure Name Priority Date/Time Associated Diagnosis Comments FILM LIBRARY STORAGE ONLY CT ABDOMEN AND PELVIS Routine 05/01/2020 12:00 AM EDT documented in this encounter Results * Film Library- Storage Only CT Abdomen & Pelvis (05/01/2020 12:00 AM EDT) Narrative [facility] - 05/14/2020 9:49 PM EDT This exam is auto-finalizing. It's purpose is for storage only. Estrella [place] MD IMG FILM LIBRAR Y ORDERABLES [place], [place] documented in this encounter Visit Diagnoses Not on filedocumented in this encounter Care Teams Licensed Vocational Nurse Relationship Specialty Start Date End Date Dom Kennedy MD [address] [place] [phone] PCP - General 12/28/16 documented as of this encounter
--- OUTSIDE RECORDS SUMMARY | 2024-03-14 17:11 | XMS_ITS | Encounter Summary ---
Author Organization [facility] [place] [address] Care Team Providers Care Preservative Filler Machine Operator Name Role Phone Ralph Ellison MD Primary Care Provider [phone] Reason for Referral * Diagnostic Test (Routine) - Closed Specialty Diagnoses / Procedures Referred By Contac t Referred To Contact Diagnoses Chest discomfort SOB (shortness of breath) Atypical chest pain Procedures Echocardiogram Stress (Treadmill) Adolfo Alejo MD [facility] [place] [address] [facility] [place] [address] Referral ID Status Reason Start Date Expiration Date V isits Requested Visits Authorized [id number] Closed Specialty Service Requested 09/26/2015 11/25/2015 1 1 Reason for Visit * Reason Comments Chest Pain * Consultation (SHERMAN) - Closed Specialty Diagnoses / Procedures Referred By Contac t Referred To Contact Cardiology Diagnoses positive cardiac stress test risk factors diabetes, hypertension and hyperlipidemia Ralph Ellison MD [facility] [address] [place] [address] [facility] Card[facility] [address] [place] [id number] Referral ID Status Reason Start Date Expiration Date V isits Requested Visits Authorized [id number] Closed Consult, Test & Treat Connection Center 09/05/2015 09/04/2016 1 1 Encounter Details Date Type Department Care Team (Late st Contact Info) Description 09/11/2015 11:00 AM EST Office Visit Cardiology at [address] [place] [address] Adolfo Alejo MD [facility] [address] Chest discomfort; SOB (shortness of breath); Atypical chest pain Social History Tobacco Use Types Packs/Day Years [...] EST documented in this encounter Patient Instructions * Patient Instructions* Adolfo Alejo MD - 09/11/2015 11:57 AM EST 1. Begin daily aspirin, 81 mg 2. Labs today (cardiac enzymes) 3. Stress echocardiogram to be scheduled 4. Follow-up at time of stress test documented in this encounter Progress Notes * Adolfo Alejo MD - 09/11/2015 11:50 AM EST Images from the original note were not included. Formerly [facility] ANTHONY Bui [id number] CARDIOLOGY OUTPATIENT CONSULTATION [facility] Office Jefry Guadarrama [id number] 09/11/2015 REFERRING PROVIDER: Ralph Ellison CHIEF COMPLAINT: Chief Complaint Patient presents with ??? Chest Pain PROBLEM LIST Patient Active Problem List Diagnosis ??? Atypical chest pain ?? Nuclear stress test [facility] in 2015 reportedly negative ?? Treadmill stress test [facility] August 21, [address] [...] he had a nuclear stress test at [facility] which was reportedly negative. His symptoms have waxed and waned ever since then. In the last few months his symptoms have been worse.He describes a central tightness or aching sensation with very minimal radiation. His symptoms are virtually constantly present. He does not feel his symptoms are affected by meals. They may be worsened slightly with deep inspiration. His symptoms are generally not associated with activity althoughsometimes with extremes of activity he will be [...] He is and lives with his in [place], [place]. 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 He has never smoked. He drinks a rare alcoholic beverage. He doesn't exercise for the sake of exercise but does walk between 6 and [...] icterus of corneal arcus noted. Neck is withoutjugular venous distension, thyromegaly, or carotid bruits. Carotid upstrokes are brisk bilaterally.Lungs clear to auscultation and percussion. Cardiac exam reveals the PMI to be normally sized and situated. Rhythm is regular. First and second hearts sounds normal. No murmurs, rubs or gallops. Abdominal exam reveals normal bowl sounds, no masses, no organomegaly and no aortic enlargement. Extremities are non-edematous and both femoral and pedal pulses are normal. DATA: Twelve-lead EKG: This revealed normal sinus rhythm with no ischemic changes. ASSESSMENT: In summary, this is a 54-year-old man who has had fairly chronic pain over the course of the last year which has been worse during the last couple months. His symptoms are rarely gone andare very atypical in this regard. On the other hand he does have dyspnea and worsening of the symptoms with extremes of activity. He also had a reportedly positive stress test. Although I have a fairamount skepticism that his symptoms are cardiac, in the context of her current available data, I think we need more information. I recommended a stress echocardiogram. If negative, I would pursue a GI cause to his symptoms. Incidentally, he snores fairly loudly and says he awakens exhausted. I have recently high suspicionof underlying obstructive sleep apnea and this would be reasonable to pursue at some point. RECOMMENDATIONS: 1. Addition of baby aspirin to medical regimen 2. Schedule stress echocardiogram both to look at baseline status of heart and to formally evaluatefor ischemia 3. If stress test negative, consider GI workup 4. Consider evaluation for obstructive sleep apnea Thank you for requesting this consultation. For questions, please feel free to contact me via any of the following mechanisms: Email: [email or web address] documented in this encounter Miscellaneous Notes * Addendum Note - Arlyn Copeland - 09/11/2015 12:24 PM ESTAddended by: ARLYN COPELAND on: 09/11/2015 12:24 PM Modules accepted: Orders documented in this encounter Plan of Treatment Not on file documented as of this encounter Procedures Procedure Name Priority Date/Time Associated Diagnosis Comments TROPONIN Routine 09/11/2015 12:30 PM EST Chest discomfort SOB (shortness of breath) Atypical chest pain EKG 12-LEAD Routine 09/11/2015 11:00 AM EST Chest discomfort SOB (shortness of breath) documented in this encounter Results * STRESS ECHO W CONTRAST W LMTD SPEC DOPP COLOR DOPP (10/30/2015 12:11 PM EDT) EF 55 HEARTLAB SYSTEM Anatomical Region Laterality Modality Other 10/30/2015 Narrative 10/30/2015 12:54 PM EDT Procedure: ?Stress Echocardiogram Patient: ?CHIARA JOSEPH ? (Age): 1960(54y) Med Rec#: ? [id number] ?Sex: ?M ? Site Loc: ? [facility] ?Ht / Wt: ??177(cm)/95.01(k Pt. Loc: ?Echo Lab ?BSA: ?2.12 Study Date: ?? 10/30/2015 ?Pt. Type: Tape: ? Referring: ADOLFO ALEJO Referring: Adolfo Alejo Reading: Nirmal Arroyo ([id number]) Textile Bag Sewer: Grady Orosco Production Recorder: Milagros Duke Interpreting Fellow: Gregor Schwarz ??([id number]) Interpreting Fellow: Madan Hu ([id number]) Interpreting Fellow: Albino Rice ([id number]) Diagnosis: *ICD-10-PCS Shortness of breath (R06.02) *ICD-10-PCS Other chest pain (R07.89) CPT Codes: *Stress Echo (37695) *Color Doppler (38755) *Doppler LTD (36516) *ECG Interpretation (04083) *Definity (23159NZ) Stage ? BP ?HR ? Rest ?166/80 ?86 ? Peak ?200/100 ? 171 ? Recovery ?130/90 ?96 ? SUMMARY: 1. BASELINE: Normal global and segmental biventricular systolic function with an estimated left ventricular ejection fraction of 55%. No hemodynamically significant valve disease. 2. STRESS: The patient exercised on a treadmill for a total of 9:41 min achieving a peak heart rate of 171 bpm, (103 % max predicted). ??With stress he experienced mild chest pain that resolved in recovery. He was hemodynamically stable, had no arrhythmias and developed no significant ST-TW changes. 3. ECHOCARDIOGRAPHIC FINDINGS: LV function augments normally at peak stress. 4. IMPRESSION: Normal exercise echocardiogram. ??There is no echocardiographic evidence of ischemia at this diagnostic level of stress. Findings Rest: Left Ventricle: ? The left ventricle is probably normal in size. ?There is normal global left ventricular systolic function. ??Ejection fraction is estimated to be 55%. ?There are left ventricular segmental wall motion abnormalities present, as shown in the diagram below. Right Ventricle: ? The right ventricle is probably normal in size. ?Right ventricular global systolic function is probably normal. ?Pulmonary artery hypertension could not be assessed due to inadequate tricuspid regurgitation jet. Aortic Valve: ? The aortic valve is trileaflet. The leaflets are thin with normal excursion. There is no aortic stenosis or regurgitation present. Mitral Valve: ? The mitral valve appears normal in structure and function. ?There is trace mitral regurgitation present. Tricuspid Valve: ? The tricuspid valve appears normal in structure and function. ?There is trace tricuspid regurgitation present. Pericardium: ? The pericardium appears normal and there is no evidence of a pericardial effusion. Stress: ? EKG: normal sinus rhythm. ?The patient's oxygen saturation was 98% Misc: ? Other echo and stress findings as noted in report. ?A 20 gauge heplock was placed. ?An IV was placed in the patient's left arm. ?Definity contrast (one 1.5 ml vial)was used to enhance endocardial definition. Excess contrast was discarded. ?Stress echo, limited spectral Doppler, color Doppler and ECG interpretation performed. Findings Peak: Predicted Values:The patient achieved a maximum heart rate of 171 which is 104% of the maximum predicted heart rate (165 beats/min). ??The target heart rate was achieved. Left Ventricle: ? The mid anterolateral wall segment deteriorated. ?Overall wallmotion score index is ??1.06 Stress: ? Patient followed a Guero protocol. ?The patient exercised into stage 4. ?The total exercise duration was:9:41 ?The study was terminated because of fatigue. ?The patient expressed feelings of chest discomfort. Patient expressed a 5/10 sub sternal, non-radiating, dull ache. this resolved in recovery. ?The blood pressure response was hypertensive. ?Exercise capacity was good. ?The patient achieved a level of 11 METS.(11.2) ?There were no arrhythmias. ?There were no significant ST segment changes. ?This was a negative electrocardiographic stress test for ischemia. ?EKG: sinus tachycardia. ?The patient's oxygen saturation was 97% Findings Recovery: Misc: ? The heplock was discontinued. ?The IV site is dry and intact with no hematoma. Chambers 2D ?Value ?Units (Range) ? Ascending Ao ?3.1 ?cm (2 - 3.5) ? Diastolic/Systolic Function ?Value ?Units (Range) ? MV E-wave Vmax ?0.5 ?m/sec ? MV deceleration [id number] ?msec ? MV A-wave Vmax ?0.6 ?m/sec [...] ?Normal ?Normal ? Mid-Inferoseptal ?Normal ?Normal ? Gibson-Septal ? Normal ?Normal ? Gibson-Anterior ? Normal ?Normal ? Gibson-Lateral ?Normal ?Normal ? Gibson-Inferior ? Normal ?Normal ? Gibson-Tip ?Normal ?Normal ? This report has been electronically signed by: Nirmal Arroyo M.D. ? 10/30/2015 12:53:17 Images reviewed and interpretation verified [facility] Cardiac Ultrasound Laboratory Procedure Note Nirmal Arroyo MD - 10/30/2015 Procedure: Stress Echocardiogram Patient: CHIARA TORRES(Age): 1960(54y) Med Rec#: [id number] Sex: M Site Loc: [facility] Ht / Wt: 177(cm)/95.01(k Pt. Loc: Echo Lab BSA: 2.12 Study Date: 10/30/2015 Pt. Type: Tape: Referring: ADOLFO ALEJO Referring: Adolfo Alejo Reading: Nirmal Arroyo ([id number]) Textile Bag Sewer: Grady Orosco Production Recorder: Milagros Duke Interpreting Fellow: Gregor Schwarz ([id number]) Interpreting Fellow: Madan Hu ([id number]) Interpreting Fellow: Albino Rice ([id number]) Diagnosis: *ICD-10-PCS Shortness of breath (R06.02) *ICD-10-PCS Other chest pain (R07.89) CPT Codes: *Stress Echo (89216) *Color Doppler (98351) *Doppler LTD (74368) *ECG Interpretation (83929) *Definity (86787GK) Stage BP HR Rest 166/80 86 Peak 200/100 171 Recovery 130/90 96 SUMMARY: 1. BASELINE: Normal global and segmental biventricular systolic function with an estimated left ventricular ejection fraction of 55%. No hemodynamically significant valve disease. 2. STRESS: The patient exercised on a treadmill for a total of 9:41 min achieving a peak heart rate of 171 bpm, (103 % max predicted). With stress he experienced mild chest pain that resolved in recovery. He was hemodynamically stable, had no arrhythmias and developed no significant ST-TW changes. 3. ECHOCARDIOGRAPHIC FINDINGS: LV function augments normally at peak stress. 4. IMPRESSION: Normal exercise echocardiogram. There is no echocardiographic evidence of ischemia at this diagnostic level of stress. Findings Rest: Left Ventricle: The left ventricle is probably normal in size. There is normal global left ventricular systolic function. Ejection fraction is estimated to be 55%. There are left ventricular segmental wall motion abnormalities present, as shown in the diagram below. Right Ventricle: The right ventricle is probably normal in size. Right ventricular global systolic function is probably normal. Pulmonary artery hypertension could not be assessed due to inadequate tricuspid regurgitation jet. Aortic Valve: The aortic valve is trileaflet. The leaflets are thin with normal excursion. There is no aortic stenosis or regurgitation present. Mitral Valve: The mitral valve appears normal in structure and function. There is trace mitral regurgitation present. Tricuspid Valve: The tricuspid valve appears normal in structure and function. There is trace tricuspid regurgitation present. Pericardium: The pericardium appears normal and there is no evidence of a pericardial effusion. Stress: EKG: normal sinus rhythm. The patient's oxygen saturation was 98% Misc: Other echo and stress findings as noted in report. A 20 gauge heplock was placed. An IV was placed in the patient's left arm. Definity contrast (one 1.5 ml vial)was used to enhance endocardial definition. Excess contrast was discarded. Stress echo, limited spectral Doppler, color Doppler and ECG interpretation performed. Findings Peak: Predicted Values:The patient achieved a maximum heart rate of 171 which is 104% of the maximum predicted heart rate (165 beats/min). The target heart rate was achieved. Left Ventricle: The mid anterolateral wall segment deteriorated. Overall wallmotion score index is 1.06 Stress: Patient followed a Guero protocol. The patient exercised into stage 4. The total exercise duration was:9:41 The study was terminated because of fatigue. The patient expressed feelings of chest discomfort. Patient expressed a 5/10 sub sternal, non-radiating, dull ache. this resolved in recovery. The blood pressure response was hypertensive. Exercise capacity was good. The patient achieved a level of 11 METS.(11.2) There were no arrhythmias. There were no significant ST segment changes. This was a negative electrocardiographic stress test for ischemia. EKG: sinus tachycardia. The patient's oxygen saturation was 97% Findings Recovery: Misc: The heplock was discontinued. The IV site is dry and intact with no hematoma. Chambers 2D Value Units (Range) Ascending Ao 3.1 cm (2 - 3.5) Diastolic/Systolic Function Value Units (Range) MV E-wave Vmax 0.5 m/sec MV deceleration [id number] msec MV A-wave Vmax 0.6 m/sec MV [...] Normal Mid-Inferior Normal Normal Mid-Inferoseptal Normal Normal Gibson-Septal Normal Normal Gibson-Anterior Normal Normal Gibson-Lateral Normal Normal Gibson-Inferior Normal Normal Gibson-Tip Normal Normal This report has been electronically signed by: Nirmal Arroyo M.D. 10/30/2015 12:53:17 Images reviewed and interpretation verified [facility] Cardiac Ultrasound Laboratory Adolfo Alejo MD ECHO ORDERABLES * Troponin T (09/11/2015 12:30 PM EST) Troponin-T <0.03 <=0.03 ng/mL [facility] Comment: 0.03 ng/mL: Represents the 99th percentile upper reference limit for normals. >0.03 ng/mL: Elevated cardiac troponin T level indicative of myocardial damage. Diagnosis of acute, evolving or recent NH requires a typical rise and gradual fall of cTnT with at least ONE of the following: a) Ischemic symptoms b) Development of pathologic Q waves on the ECG c) ECG changes indicative of eschemia (S-T segment elevation/depression) d) Coronary artery intervention Serial bloods should be obtained for testing on admission, at 6 to 9 hrs and again at 12 to 24 hrs if earlier samples are negative and the clinical index of suspicion is high. Reference: [Myocardial infarction redefined? a consensus document of the Joint Society of Cardiology/[place] College of Cardiology Committee for the redefinition of myocardial infarction. ??Journal of the [place] College of Cardiology 2000; 36: 959-969] Blood specimen (specimen) 09/11/2015 12:30 PM EST 09/11/2015 12:45 PM EST Narrative Resulting Agency Comment Spec In Lab Adolfo Alejo MD CHEMISTRY ORDERABLES Performing Organization Address [facility] Co de Phone Number MIRNA ROSAS * EKG 12 Lead (09/11/2015 11:00 AM EST) Ventricular rate 72 BPM MUSE SYSTEM Atrial Rate 72 BPM MUSE SYSTEM P-R Interval 180 ms MUSE SYSTEM QRS Duration 94 ms MUSE SYSTEM Q-T Interval 358 ms MUSE SYSTEM QTC Calculated (Bezet) 392 ms MUSE SYSTEM Calculated P [place] 73 degrees MUSE SYSTEM Calculated R [place] 74 degrees MUSE SYSTEM Calculated T [place] 63 degrees MUSE SYSTEM INTERPRETATION Normal sinus rhythm Normal ECG No previous ECGs available Confirmed by MD Melo, Adolfo ([id number]) on 09/11/2015 1:38:08 PM MUSE SYSTEM 09/11/2015 11:0 0 AM EST 09/11/2015 1:38 PM EST Adolfo Alejo MD ECG ORDERABLES Performing Organization Address [facility] Co de Phone Number MUSE SYSTEM documented in this encounter Visit Diagnoses Diagnosis Chest discomfort Other chest pain SOB (shortness of breath) Shortness of breath Atypical chest pain Other chest pain Chest discomfort Other chest pain SOB (shortness of breath) Shortness of breath Atypical chest pain Other chest pain documented in this encounter Care Teams Preservative Filler Machine Operator Relationship Specialty Start Date End Date Ralph Ellison MD [facility] [address] [place] [address] [place] [address] PCP - General General Internal Medicine 09/05/1512/13 documented as of this encounter
--- OUTSIDE RECORDS SUMMARY | 2024-03-14 17:11 | XMS_ITS | Encounter Summary ---
[place] [address] Care Team Providers Care Cable Systems Installer Name Role Phone Keo Orozco SPRING SETTER Primary Care Provider [phone] Encounter Details Date Type Department Care Team ([facility] st Contact Info) Description 12/03/2010 9:00 AM EDT Office Visit [facility] [address] [place] [address] Lorene Luna, RD [address] [facility] [place] [address] Social History Tobacco Use Types Packs/Day Years Used Date Smoking Tobacco: Never Assessed Sex and Gender Information Value Date Recorded Sex Assigned at Not on file Gender Identity Not on file Sexual Orientation Not on file documented as of this encounter Plan of Treatment Not on file documented as of this encounter Visit Diagnoses Not on filedocumented in this encounter Care Teams Cable Systems Installer Relationship Specialty Start Date End Date Keo Orozco APRN [address] [place] [address] PCP - General 09/30/10 09/29/11 documented as of this encounter
--- OUTSIDE RECORDS SUMMARY | 2024-03-14 17:11 | XMS_ITS | Encounter Summary ---
[place] [address] Care Team Providers Care Cigar Brander Name Role Phone Keo Orozco ASSOCIATE PROFESSOR OF MUSIC Primary Care Provider Encounter Details Date Type Department Care Team (Late st Contact Info) Description 12/30/2010 4:00 PM EDT Office Visit [facility] [address] [place] [address] Lorene Luna, RD [address] [facility] [place] [address] Social History Tobacco Use Types Packs/Day Years Used Date Smoking Tobacco: Never Assessed Sex and Gender Information Value Date Recorded Sex Assigned at Not on file Gender Identity Not on file Sexual Orientation Not on file documented as of this encounter Plan of Treatment Not on file documented as of this encounter Visit Diagnoses Not on filedocumented in this encounter Care Teams Cigar Brander Relationship Specialty Start Date End Date Keo Orozco APRN [address] [place] [address] PCP - General 09/30/10 09/29/11 documented as of this encounter
--- OUTSIDE RECORDS SUMMARY | 2024-03-14 17:11 | XMS_ITS | Encounter Summary ---
[place] [address] Care Team Providers Care Gynecologist Name Role Phone Michael Mims MD Primary Care Provider [phone] Encounter Details Date Type Department Care Team ([facility] st Contact Info) Description 12/15/2011 9:00 AM EDT Follow-Up [facility] [address] [place] [id number] Ramirez Ahuja MD [address] [place] [address] Social History Tobacco Use Types Packs/Day Years Used Date Smoking Tobacco: Never Assessed Sex and Gender Information Value Date Recorded Sex Assigned at Not on file Gender Identity Not on file Sexual Orientation Not on file documented as of this encounter Plan of Treatment Not on file documented as of this encounter Visit Diagnoses Not on filedocumented in this encounter Care Teams Gynecologist Relationship Specialty Start Date End Date Michael Mims MD [address] [place] [address] PCP - General 10/11/11 03/21/14 documented as of this encounter
--- OUTSIDE RECORDS SUMMARY | 2024-03-14 17:11 | XMS_ITS | Encounter Summary ---
[place] [address] Care Team Providers Care Business Solutions Architect Name Role Phone Dom Kennedy MD Primary Care Provider [phone] Encounter Details Date Type Department Care Team (Late st Contact Info) Description 08/21/2010 Abstract [facility] Information Services [address] [place] [phone] Provider, His Bull MD Social History Tobacco Use Types Packs/Day Years Used Date Smoking Tobacco: Never Assessed Sex and Gender Information Value Date Recorded Sex Assigned at Not on file Gender Identity Not on file Sexual Orientation Not on file documented as of this encounter Plan of Treatment Not on file documented as of this encounter Procedures Procedure Name Priority Date/Time Associated Diagnosis Comments PSA (ULTRASENSITIVE) Routine 08/21/2010 10:52 AM EST documented in this encounter Results * (ABNORMAL) PSA (08/21/2010 10:52 AM EST) PSA Total 0.42(Exter nal Lab) 0.00 - 4.0 ng/ml [facility] RESULT CONVERSION Comment: Sourced from [facility]ol[facility]lieb Conversion 08/21/2010 10:5 2 AM EST His Bull Provider CHEMISTRY ORDERABL ES [facility] RESULT CONVERSION documented in this encounter Visit Diagnoses Not on filedocumented in this encounter Care Teams Business Solutions Architect Relationship Specialty Start Date End Date Dom Kennedy MD [address] [place] [address] [place] [address] PCP - General 12/28/16 documented as of this encounter
--- OUTSIDE RECORDS SUMMARY | 2024-03-14 17:11 | XMS_ITS | Encounter Summary ---
[place] [address] Care Team Providers Care Application Helper Name Role Phone Dom Kennedy MD Primary Care Provider [phone] Encounter Details Date Type Department Care Team (Late st Contact Info) Description 12/10/2011 Abstract [facility] Information Services [address] [place] [phone] Provider, His Bull MD Social History Tobacco [...] HEMOGLOBIN A1C Routine 12/10/2011 9:00 AM EDT documented in this encounter Results * (ABNORMAL) Hemoglobin A1c (12/10/2011 9:00 AM EDT) Hemoglobin A1C 8.1(EXTER NAL/ABN) <=5.6 percent [facility] RESULT CONVERSION Comment: Sourced from Yolande Gottlieb Conversion 12/10/2011 9:00 AM EDT His Bull Provider CHEMISTRY ORDERABL ES [facility] RESULT CONVERSION documented in this encounter Visit Diagnoses Not on filedocumented in this encounter Care Teams Application Helper Relationship Specialty Start Date End Date Dom Kennedy MD [address] [place] [address] [place] [address] PCP - General 12/28/16 documented as of this encounter
--- OUTSIDE RECORDS SUMMARY | 2024-03-14 17:11 | XMS_ITS | Encounter Summary ---
Author Organization [facility] Address [facility] [place] [address] Care Team Providers Care Still Operator Whiskey Name Role Phone Ralph Ellison MD Primary Care Provider [phone] Reason for Referral * Diagnostic Test (Routine) - Closed Specialty Diagnoses / Procedures Referred By Contac t Referred To Contact Diagnoses Chest discomfort SOB (shortness of breath) Atypical chest pain Procedures Echocardiogram Stress (Treadmill) Adolfo Antonio MD [facility] [place] [address] [facility] [place] [address] Referral ID Status Reason Start Date Expiration Date V isits Requested Visits Authorized [id number] Closed Specialty Service Requested 09/26/2015 11/25/2015 1 1 Reason for Visit * Diagnostic Test (Routine) - Closed Specialty Diagnoses / Procedures Referred By Contac t Referred To Contact Diagnoses Chest discomfort SOB (shortness of breath) Atypical chest pain Procedures Echocardiogram Stress (Treadmill) Adolfo Antonio MD [facility] [place] [address] [facility] [place] [address] Referral ID Status Reason Start Date Expiration Date V isits Requested Visits Authorized [id number] Closed Specialty Service Requested 09/26/2015 11/25/2015 1 1 Encounter Details Date Type Department Care Team (Latest Contact Info) Description 10/30/2015 9:00 AM EDT - 10/30/2015 11:59 PM EDT Hospital Encounter Non-Invasive [place] [address] Adolfo Antonio MD [facility] [place] [address] Chest discomfort; SOB (shortness of breath); Atypical chest pain Discharge Disposition: Home Social History Tobacco Use Types Packs/Day Years Used Date Smoking Tobacco: Never Smokeless Tobacco: Never Sex and Gender Information Value Date Recorded Sex Assigned at Not on file Gender Identity Not on file Sexual Orientation Not on file documented as of this encounter Medications at Time of Discharge Medication Sig Dispensed Refills Start Date End Date atorvastatin (LIPITOR) 20 mg Tablet Take 20 [...] 200 mg/mL Oil once a week. 08/11/2015 aspirin 81 mg Tablet, Delayed Release (E.C.) Take 1 tablet by mouth daily. 30 tablet 3 09/11/2015 09/08/2020 documented as of this encounter Plan of Treatment Not on file documented as of this encounter Procedures Procedure Name Priority Date/Time Associated Diagnosis Comments STRESS ECHO W CONTRAST W LMTD SPEC DOPP COLOR DOPP Routine 10/30/2015 12:11 PM EDT Chest discomfort SOB (shortness of breath) Atypical chest pain documented in this encounter Results * STRESS ECHO W CONTRAST W LMTD SPEC DOPP COLOR DOPP (10/30/2015 12:11 PM EDT) EF 55 HEARTLAB SYSTEM Anatomical Region Laterality Modality Other 10/30/2015 Narrative 10/30/2015 12:54 PM EDT Procedure: ?Stress Echocardiogram Patient: ?CHIARA JOSEPH ? (Age): 1960(54y) Med Rec#: ? [id number] ?Sex: ?M ? Site Loc: ? [facility] ?Ht / Wt: ??177(cm)/95.01(k Pt. Loc: ?Echo Lab ?BSA: ?2.12 Study Date: ?? 10/30/2015 ?Pt. Type: Tape: ? Referring: ADOLFO ANTONIO Referring: Adolfo Antonio Reading: Nirmal Arroyo ([id number]) Medical Liaison: Grady Orosco File Machine Operator: Milagros Duke Interpreting Fellow: Gregor Schwarz ??([id number]) Interpreting Fellow: Madan Hu ([id number]) Interpreting Fellow: Albino Rice ([id number]) Diagnosis: *ICD-10-PCS Shortness of breath (R06.02) *ICD-10-PCS Other chest pain (R07.89) CPT Codes: *Stress Echo (75489) *Color Doppler (60665) *Doppler LTD (06704) *ECG Interpretation (59261) *Definity (54031RO) Stage ? BP ?HR ? Rest ?166/80 [...] E-wave Vmax ?0.5 ?m/sec ? MV deceleration [id number] ?msec ? MV A-wave Vmax ?0.6 ?m/sec [...] ?Normal ?Normal ? Mid-Inferoseptal ?Normal ?Normal ? [place]-Septal ? Normal ?Normal ? [place]-Anterior ? Normal ?Normal ? [place]-Lateral ?Normal ?Normal ? [place]-Inferior ? Normal ?Normal ? [place]-Tip ?Normal ?Normal ? This report has been electronically signed by: Nirmal Arroyo M.D. ? 10/30/2015 12:53:17 Images reviewed and interpretation verified [facility] Cardiac Ultrasound Laboratory Procedure Note Nirmal Arroyo MD - 10/30/2015 Procedure: Stress Echocardiogram Patient: CHIARA TORRES(Age): 1960(54y) Med Rec#: [id number] Sex: M Site Loc: [facility] Ht / Wt: 177(cm)/95.01(k Pt. Loc: Echo Lab BSA: 2.12 Study Date: 10/30/2015 Pt. Type: Tape: Referring: ADOLFO ANTONIO Referring: Adolfo Antonio Reading: Nirmal Arroyo ([id number]) Medical Liaison: Grady Orosco File Machine Operator: Milagros Duke Interpreting Fellow: Gregor Schwarz ([id number]) Interpreting Fellow: Madan Hu ([id number]) Interpreting Fellow: Albino Rice ([id number]) Diagnosis: *ICD-10-PCS Shortness of breath (R06.02) *ICD-10-PCS Other chest pain (R07.89) CPT Codes: *Stress Echo (53025) *Color Doppler (48641) *Doppler LTD (34404) *ECG Interpretation (15052) *Definity ([id number]) Stage BP HR Rest 166/80 86 Peak [...] MV E-wave Vmax 0.5 m/sec MV deceleration [id number] msec MV A-wave Vmax 0.6 m/sec MV [...] Normal Mid-Inferior Normal Normal Mid-Inferoseptal Normal Normal [place]-Septal Normal Normal [place]-Anterior Normal Normal [place]-Lateral Normal Normal [place]-Inferior Normal Normal [place]-Tip Normal Normal This report has been electronically signed by: Nirmal Arroyo M.D. 10/30/2015 12:53:17 Images reviewed and interpretation verified [facility] Cardiac Ultrasound Laboratory Adolfo Antonio MD ECHO ORDERABLES documented in this encounter Visit Diagnoses Diagnosis Chest discomfort Other chest pain SOB (shortness of breath) Shortness of breath Atypical chest pain Other chest pain documented in this encounter Administered Medications Inactive Administered Medications - up to 3 most recent administrations Medication Order MAR Action Action Date Dose Rate Site perflutren lipid microspheres (DEFINITY) injection 1.1 mL 1.1 mL (rounded from 1.05 mL), Intravenous, ONCE PRN, 1 dose, Starting on Lise 10/30/15 at 1211, Until Lise 10/30/15 at 1140, Other, for enhancement of sub-optimal echo images, Echo Lab (Intra-Procedure), Routine Given 10/30/2015 11:40 AM EDT 1.1 mLs documented in this encounter Care Teams Still Operator Whiskey Relationship Specialty Start Date End Date Ralph Ellison MD [facility] [address] [place] [address] PCP - General General Internal Medicine 09/05/1512/13 documented as of this encounter
--- OUTSIDE RECORDS SUMMARY | 2024-03-14 17:11 | XMS_ITS | Encounter Summary ---
[facility] [place] [address] Care Team Providers Care Wildlife Biology Internship Name Role Phone Dom Kennedy MD Primary Care Provider [phone] Encounter Details Date Type Department Care Team (Late st Contact Info) Description 02/19/2011 [place] [id number] Keo Orozco, CERTIFIED MEDICATION TECHNICIAN [address] [place], [place] [id number] Social History Tobacco Use Types Packs/Day Years Used Date Smoking Tobacco: Never Assessed Sex and Gender Information Value Date Recorded Sex Assigned at Not on file Gender Identity Not on file Sexual Orientation Not on file documented as of this encounter Plan of Treatment Not on file documented as of this encounter Procedures Procedure Name Priority Date/Time Associated Diagnosis Comments XR KNEE AP LAT AXIAL PATELLA BILAT Routine 02/19/2011 3:39 PM EDT documented in this encounter Results * XR Knee 3 Views Bilat (02/19/2011 3:39 PM EDT) Anatomical Region Laterality Modality Knee Bilateral Radiographic Day ging 02/19/2011 3:39 PM EDT Narrative 02/22/2011 9:59 PM EDT External Results Connor Gottlieb Final Report EXAMINATION: ??DHK 8600 - KNEE (BILATERAL,3VWS) ?[id number] DIAGNOSIS: ?DHK X-RAY JOINT PAIN-LOWER LEG REASON: ? KNEE BILAT 3 VW RESULT: ? CLINICAL DATA: ?? Bilateral knees IMPRESSION: ? FINDINGS: Left knee: ??There is minimal, if any, medial joint space narrowing. ??There are moderate-sized quadriceps and patellar tendon spurs. Right knee: ??On the right, a small amount of joint fluid is present. There is patellar tendon spur. INTERPRETING PHYSICIAN: ??LISSET FORTUNE M.D. ? TRANSCRIBED BY/DATE: ?? PM ??on Feb 22 2011 10:07A ELECTRONICALLY AUTHORIZED BY: ?? LISSET FORTUNE M.D. ? Feb 22 2011 ??9:59P Procedure Note Lisset Fortune MD - 04/01/2017 External Results Connor Gottlieb Final Report EXAMINATION: DHK 8600 - KNEE (BILATERAL,3VWS) [id number] DIAGNOSIS: K X-RAY JOINT PAIN-LOWER LEG REASON: KNEE BILAT 3 VW RESULT: CLINICAL DATA: Bilateral knees IMPRESSION: FINDINGS: Left knee: There is minimal, if any, medial joint space narrowing.There are moderate-sized quadriceps and patellar tendon spurs. Right knee: On the right, a small amount of joint fluid is present.There is patellar tendon spur. INTERPRETING PHYSICIAN: LISSET FORTUNE M.D. TRANSCRIBED BY/DATE: PM on Feb 22 2011 10:07A ELECTRONICALLY AUTHORIZED BY: LISSET FORTUNE M.D. Feb 22 2011 9:59P Keo Orozco CERTIFIED MEDICATION TECHNICIAN IMG DX ORDERABLES documented in this encounter Visit Diagnoses Not on filedocumented in this encounter Care Teams Wildlife Biology Internship Relationship Specialty Start Date End Date Dom Kennedy MD [facility] [place] [address] PCP - General 12/28/16 documented as of this encounter
--- OUTSIDE RECORDS SUMMARY | 2024-03-14 17:11 | XMS_ITS | Encounter Summary ---
[place] [address] Care Team Providers Care Fisher Troll Line Name Role Phone Dom Kennedy MD Primary Care Provider [phone] Encounter Details Date Type Department Care Team (Late st Contact Info) Description 03/22/2014 Abstract [facility] Information Services [address] [place] [phone] Provider, His MD [place] Social History Tobacco Use Types Packs/Day Years [...] - Inhaled Oxygen Concentration - - Weight 94.5 kg (208 lb 7 oz) 03/22/2014 1:00 PM EDT Sourced from [place] Conversion Height 175.3 cm (5' 9) 03/22/2014 1:00 PM EDT Sourced from [place] Conversion Body Mass Index 30.78 03/22/2014 1:00 PM EDT documented in this encounter Plan of Treatment Not on file documented as of this encounter Visit Diagnoses Not on filedocumented in this encounter Care Teams Fisher Troll Line Relationship Specialty Start Date End Date Dom Kennedy MD [address] [place] [address] [place] [address] PCP - General 12/28/16 documented as of this encounter
--- OUTSIDE RECORDS SUMMARY | 2024-03-14 17:11 | XMS_ITS | Encounter Summary ---
Author Organization [facility] [place] [address] Care Team Providers Care Elementary [employer] Principal Name Role Phone Ralph Ellison MD Primary Care Provider [phone] Encounter Details Date Type Department Care Team (Late st Contact Info) Description 10/30/2015 10:30 AM EDT Office Visit Cardiology at [address] [place] [address] Quentin Alejo MD [facility] [place] [address] Atypical chest pain Social History Tobacco Use [...] documented in this encounter Progress Notes * Qunetin Alejo MD - 10/30/2015 1:20 PM EDT Images from the original note were not included. [facility] ANTHONY Bui [address] CARDIOLOGY OUTPATIENT FOLLOW-UP NOTE Jefry Guadarrama [id number] PCP: RALPH ELLISON MD 10/30/2015 PRIMARY CARE PROVIDER: RALPH ELLISON MD PROBLEM LIST: Patient Active Problem List Diagnosis ??? Atypical chest pain ?? Nuclear stress test [facility] in 2014 reportedly negative ?? Treadmill stress test [facility] August 21, [address] depression [...] He had a nuclear stress test at [facility] a year ago which was negative. More recently he had a treadmill stress test at [facility] in this elicited some discomfort and EKG changes. His symptoms continued to be very atypical and are constantly present. To further clarify and to rule out a cardiac cause, he was set up for stress echocardiogram. He says the situation is unchanged. He is increasingly thinking his symptoms are related either to stressor to his laparoscopic banding procedure. OBJECTIVE: Vital Signs: BP [...] pain documented in this encounter Care Teams Elementary [employer] Principal Relationship Specialty Start Date End Date Ralph Ellison MD [facility] [address] [place] [address] PCP - General General Internal Medicine 09/05/1512/13 documented as of this encounter
--- OUTSIDE RECORDS SUMMARY | 2024-03-14 17:11 | XMS_ITS | Encounter Summary ---
[place] [address] Care Team Providers Care Power Equipment Mechanics Instructor Name Role Phone Michael Mims MD Primary Care Provider [phone] Encounter Details Date Type Department Care Team ([facility] st Contact Info) Description 10/14/2011 2:00 PM EST Follow-Up [facility] [place] [address] [place] [address] Ramirez Ahuja MD [address] [place] [address] Social History Tobacco Use Types Packs/Day Years Used Date Smoking Tobacco: Never Assessed Sex and Gender Information Value Date Recorded Sex Assigned at Not on file Gender Identity Not on file Sexual Orientation Not on file documented as of this encounter Plan of Treatment Not on file documented as of this encounter Visit Diagnoses Not on filedocumented in this encounter Care Teams Power Equipment Mechanics Instructor Relationship Specialty Start Date End Date Michael Mims MD [address] [place] [address] PCP - General 10/11/11 03/21/14 documented as of this encounter
--- OUTSIDE RECORDS SUMMARY | 2024-03-14 17:11 | XMS_ITS | Encounter Summary ---
[place] [address] Care Team Providers Care Vine Pruner Name Role Phone Ralph Ellison MD Primary Care Provider [phone] Encounter Details Date Type Department Care Team (Late st Contact Info) Description 12/05/2015 10:00 AM EDT Office Visit General Surgery [place] [address] [place] [phone] Keo Cardoso MD [address] [place] [address] Social History Tobacco Use Types Packs/Day Years [...] on filedocumented in this encounter Care Teams Vine Pruner Relationship Specialty Start Date End Date Ralph Ellison MD [facility] 1 [facility] [place] [address] PCP - General General Internal Medicine 09/05/1512/13 documented as of this encounter
--- OUTSIDE RECORDS SUMMARY | 2024-03-14 17:11 | XMS_ITS | Encounter Summary ---
Author Organization [place] [address] Care Team Providers Care Field Marketing Manager Name Role Phone Keo Orozco CELL RELINER Primary Care Provider Encounter Details Date Type Department Care Team (Late st Contact Info) Description 02/19/2011 11:00 AM EDT Office Visit [address] [address] Social History Tobacco Use Types [...] on filedocumented in this encounter Care Teams Field Marketing Manager Relationship Specialty Start Date End Date Keo Orozco APRN [address] [place] [address] PCP - General 09/30/10 09/29/11 documented as of this encounter
--- OUTSIDE RECORDS SUMMARY | 2024-03-14 17:11 | XMS_ITS | Encounter Summary ---
Author Organization [facility] [place] [address] Care Team Providers Care Metal Weigher Name Role Phone Aftab Coles MD, Dom Conrad Primary Care Provider [phone] Encounter Details Date Type Department Care Team (Late st Contact Info) Description 08/21/2010 6:00 AM EST Procedure visit [address] [address] Social History Tobacco Use Types [...] on filedocumented in this encounter Care Teams Metal Weigher Relationship Specialty Start Date End Date Dom Ugalde Jr., MD PCP - General 08/11/10 09/03/10 documented as of this encounter
--- OUTSIDE RECORDS SUMMARY | 2024-03-14 17:11 | XMS_ITS | Encounter Summary ---
[place] [address] Care Team Providers Care Policy Officer Name Role Phone Keo Orozco APRN Primary Care Provider Encounter Details Date Type Department Care Team ([facility] st Contact Info) Description 03/19/2011 10:30 AM EDT Follow-Up [facility] [address] [place] [address] Ramirez Ahuja MD [address] [place], [place] [phone] Social History Tobacco Use Types Packs/Day Years Used Date Smoking Tobacco: Never Assessed Sex and Gender Information Value Date Recorded Sex Assigned at Not on file Gender Identity Not on file Sexual Orientation Not on file documented as of this encounter Plan of Treatment Not on file documented as of this encounter Visit Diagnoses Not on filedocumented in this encounter Care Teams Policy Officer Relationship Specialty Start Date End Date Keo Orozco APRN [address] [place] [address] PCP - General 09/30/10 09/29/11 documented as of this encounter
--- OUTSIDE RECORDS SUMMARY | 2024-03-14 17:11 | XMS_ITS | Encounter Summary ---
[place] [address] Care Team Providers Care Licensed Insurance Agent Name Role Phone Dom Kennedy MD Primary Care Provider [phone] Encounter Details Date Type Department Care Team (Late st Contact Info) Description 11/10/2012 Abstract [facility] Information Services [address] [place] [phone] Provider, His MD [place] Social History Tobacco [...] - Inhaled Oxygen Concentration - - Weight 98.5 kg (217 lb 3.2 oz) 11/10/2012 10:45 AM EDT Sourced from [place] Conversion Height 175.3 cm (5' 9) 11/10/2012 10:4 5 AM EDT Sourced from [place] Conversion Body Mass Index 32.07 11/10/2012 10:45 AM EDT documented in this encounter Plan of Treatment Not on file documented as of this encounter Visit Diagnoses Not on filedocumented in this encounter Care Teams Licensed Insurance Agent Relationship Specialty Start Date End Date Dom Kennedy MD [address] [place] [address] [place] [address] PCP - General 12/28/16 documented as of this encounter
--- OUTSIDE RECORDS SUMMARY | 2024-03-14 17:11 | XMS_ITS | Encounter Summary ---
[place] [address] Care Team Providers Care Painter Helper Name Role Phone Keo Orozco CRITICAL POWER INSTALL TECHNICIAN Primary Care Provider Encounter Details Date Type Department Care Team ([facility] st Contact Info) Description 03/18/2011 10:30 AM EDT Office Visit [facility] [address] [place] [address] Lorene Luna, RD 590 [facility] [place] [address] Social History Tobacco Use Types Packs/Day Years Used Date Smoking Tobacco: Never Assessed Sex and Gender Information Value Date Recorded Sex Assigned at Not on file Gender Identity Not on file Sexual Orientation Not on file documented as of this encounter Plan of Treatment Not on file documented as of this encounter Visit Diagnoses Not on filedocumented in this encounter Care Teams Painter Helper Relationship Specialty Start Date End Date Keo Orozco APRN [address] [place] [address] PCP - General 09/30/10 09/29/11 documented as of this encounter
--- OUTSIDE RECORDS SUMMARY | 2024-03-14 17:11 | XMS_ITS | Encounter Summary ---
[place] [address] Care Team Providers Care Professor Of Music Name Role Phone Keo Orozco APRN Primary Care Provider [phone] Encounter Details Date Type Department Care Team ([facility] st Contact Info) Description 02/01/2011 11:30 AM EDT Follow-Up [facility] [address] [place] [address] Ramirez Ahuja MD [address] [place] [address] Social History Tobacco Use Types Packs/Day Years Used Date Smoking Tobacco: Never Assessed Sex and Gender Information Value Date Recorded Sex Assigned at Not on file Gender Identity Not on file Sexual Orientation Not on file documented as of this encounter Plan of Treatment Not on file documented as of this encounter Visit Diagnoses Not on filedocumented in this encounter Care Teams Professor Of Music Relationship Specialty Start Date End Date Keo Orozco APRN [address] [place] [address] PCP - General 09/30/10 09/29/11 documented as of this encounter
--- OUTSIDE RECORDS SUMMARY | 2024-03-14 17:11 | XMS_ITS | Encounter Summary ---
[place] [address] Care Team Providers Care Roll Sheeting Cutter Name Role Phone Michael Mims MD Primary Care Provider [phone] Encounter Details Date Type Department Care Team (Late st Contact Info) Description 01/04/2012 11:40 AM EDT Office Visit [address] [address] Michael Mims MD [address] [place] [address] Social History Tobacco Use Types Packs/Day Years Used Date Smoking Tobacco: Never Assessed Sex and Gender Information Value Date Recorded Sex Assigned at Not on file Gender Identity Not on file Sexual Orientation Not on file documented as of this encounter Plan of Treatment Not on file documented as of this encounter Visit Diagnoses Not on filedocumented in this encounter Care Teams Roll Sheeting Cutter Relationship Specialty Start Date End Date Michael Mims MD [address] [place] [address] PCP - General 10/11/11 03/21/14 documented as of this encounter
--- OUTSIDE RECORDS SUMMARY | 2024-03-14 17:11 | XMS_ITS | Encounter Summary ---
[place] [address] Care Team Providers Care Brim Raiser Name Role Phone Aftab Coles MD, Dom Conrad Primary Care Provider [phone] Encounter Details Date Type Department Care Team (Late st Contact Info) Description 09/09/2010 4:15 PM EST Office Visit [address] [phone] Keo Orozco APRN [address] [place] [address] Social History Tobacco Use Types Packs/Day Years Used Date Smoking Tobacco: Never Assessed Sex and Gender Information Value Date Recorded Sex Assigned at Not on file Gender Identity Not on file Sexual Orientation Not on file documented as of this encounter Plan of Treatment Not on file documented as of this encounter Visit Diagnoses Not on filedocumented in this encounter Care Teams Brim Raiser Relationship Specialty Start Date End Date Dom Ugalde Jr., MD PCP - General 09/09/10 09/29/10 documented as of this encounter
--- OUTSIDE RECORDS SUMMARY | 2024-03-14 17:11 | XMS_ITS | Encounter Summary ---
[place] [address] Care Team Providers Care Corporate Strategy Analyst Name Role Phone Keo Orozco APRN Primary Care Provider Encounter Details Date Type Department Care Team ([facility] st Contact Info) Description 02/11/2011 9:15 AM EDT Follow-Up [facility] [address] [place] [address] Ramirez Ahuja MD [address] [place] [address] Social History Tobacco Use Types [...] on filedocumented in this encounter Care Teams Corporate Strategy Analyst Relationship Specialty Start Date End Date Keo Orozco APRN [address] [place] [address] PCP - General 09/30/10 09/29/11 documented as of this encounter
--- OUTSIDE RECORDS SUMMARY | 2024-03-14 17:11 | XMS_ITS | Encounter Summary ---
[place] [address] Care Team Providers Care Tunnel Miner Name Role Phone Aftab Coles MD, Dom Conrad Primary Care Provider [phone] Encounter Details Date Type Department Care Team ([facility] st Contact Info) Description 07/30/2010 3:30 PM EST Office Visit [address] [phone] Maura Rooney, PsVincent [address] [place] [address] [place] [address] Social History Tobacco Use Types [...] on filedocumented in this encounter Care Teams Tunnel Miner Relationship Specialty Start Date End Date Dom Ugalde Jr., MD PCP - General 07/07/10 08/05/10 documented as of this encounter
--- OUTSIDE RECORDS SUMMARY | 2024-03-14 17:11 | XMS_ITS | Encounter Summary ---
[place] [address] Care Team Providers Care Castables Worker Name Role Phone Keo Orozco APRN Primary Care Provider [phone] Encounter Details Date Type Department Care Team ([facility] st Contact Info) Description 02/26/2011 10:45 AM EDT Follow-Up [facility] [address] [place] [address] Ramirez Ahuja MD [address] [place] [address] Social History Tobacco Use Types [...] on filedocumented in this encounter Care Teams Castables Worker Relationship Specialty Start Date End Date Keo Orozco APRN [address] [place] [address] PCP - General 09/30/10 09/29/11 documented as of this encounter
--- OUTSIDE RECORDS SUMMARY | 2024-03-14 17:11 | XMS_ITS | Encounter Summary ---
[place] [address] Care Team Providers Care Clinical Law Professor Name Role Phone Michael Mims MD Primary Care Provider [phone] Encounter Details Date Type Department Care Team ([facility] st Contact Info) Description 01/12/2012 11:00 AM EDT Office Visit [facility] [address] [place] [phone] David Holilday, PhD [address] [place] [address] Social History Tobacco Use Types Packs/Day Years Used Date Smoking Tobacco: Never Assessed Sex and Gender Information Value Date Recorded Sex Assigned at Not on file Gender Identity Not on file Sexual Orientation Not on file documented as of this encounter Plan of Treatment Not on file documented as of this encounter Visit Diagnoses Not on filedocumented in this encounter Care Teams Clinical Law Professor Relationship Specialty Start Date End Date Michael Mims MD [address] [place] [address] PCP - General 10/11/11 03/21/14 documented as of this encounter
--- OUTSIDE RECORDS SUMMARY | 2024-03-14 17:11 | XMS_ITS | Encounter Summary ---
[place] [address] Care Team Providers Care Log Skidder Name Role Phone Aftab Coles MD, Dom Conrad Primary Care Provider [phone] Encounter Details Date Type Department Care Team ([facility] st Contact Info) Description 07/30/2010 2:30 PM EST Office Visit [facility] [address] [place] [address] Lorene Luna, RD [address] [facility] [place] [address] Social History Tobacco Use Types Packs/Day Years Used Date Smoking Tobacco: Never Assessed Sex and Gender Information Value Date Recorded Sex Assigned at Not on file Gender Identity Not on file Sexual Orientation Not on file documented as of this encounter Plan of Treatment Not on file documented as of this encounter Visit Diagnoses Not on filedocumented in this encounter Care Teams Log Skidder Relationship Specialty Start Date End Date Dom Ugalde Jr., MD PCP - General 07/07/10 08/05/10 documented as of this encounter
--- OUTSIDE RECORDS SUMMARY | 2024-03-14 17:11 | XMS_ITS | Encounter Summary ---
Author Organization [facility] [place] [address] Care Team Providers Care Pavilion Cutter Name Role Phone Dom Kennedy MD Primary Care Provider [phone] Encounter Details Date Type Department Care Team (Late st Contact Info) Description 12/16/2010 [place] [phone] Unknown None Social History Tobacco Use Types Packs/Day Years Used Date Smoking Tobacco: Never Assessed Sex and Gender Information Value Date Recorded Sex Assigned at Not on file Gender Identity Not on file Sexual Orientation Not on file documented as of this encounter Plan of Treatment Not on file documented as of this encounter Procedures Procedure Name Priority Date/Time Associated Diagnosis Comments XR FLUORO BARIUM SWALLOW (SINGLE CONTRAST) Routine 12/16/2010 10:20 AM EDT documented in this encounter Results * XR Fluoro Barium Swallow (12/16/2010 10:20 AM EDT) Anatomical Region Laterality Modality N/A Radiographic Day ging 12/16/2010 10:2 0 AM EDT Narrative 12/16/2010 4:41 PM EDT External Results Connor Gottlieb Final Report EXAMINATION: ??RAD 7422 - BARIUM SWALLOW (ESOPHAGUS) [id number] DIAGNOSIS: ?MORBID OBESITY, GERD, DIABETES REASON: ? Post Lap. Gastric Band RESULT: ? Clinical Indication: ??Post lap band procedure. FINDINGS: ?The preliminary testing lead film demonstrates characteristic positioning of the metallic gastric band within the left upper quadrant. The patient initiates swallowing without difficulty. ??The barium readily traverses through the banded stomach without evidence for obstruction, abnormal pooling or extravasation. ??There is scattered tertiary wave contractions noted along the distal esophagus incidentally. IMPRESSION: ??Satisfactory postoperative appearances. INTERPRETING PHYSICIAN: ??BIJAN RENTREIA M.D. ? TRANSCRIBED BY/DATE: ?? CEJA on December ??2010 11:52A ELECTRONICALLY AUTHORIZED BY: ?? BIJAN RENTERIA M.D. ? May ??4 2010 ??4:41P Procedure Note Bijan Renteria MD - 04/01/2017 External Results Connor Gottlieb Final Report EXAMINATION: RAD 7422 - BARIUM SWALLOW (ESOPHAGUS) [id number] DIAGNOSIS: MORBID OBESITY, GERD, DIABETES REASON: Post Lap. Gastric Band RESULT: Clinical Indication: Post lap band procedure. FINDINGS: The preliminary testing lead film demonstrates characteristic positioning of the metallic gastric band within the left upper quadrant. The patient initiates swallowing without difficulty. The barium readily traverses through the banded stomach without evidence for obstruction, abnormal pooling or extravasation. There is scattered tertiary wave contractions noted along the distal esophagus incidentally. IMPRESSION: Satisfactory postoperative appearances. INTERPRETING PHYSICIAN: BIJAN RENTERIA M.D. TRANSCRIBED BY/DATE: CEJA on Dec 16 2010 11:52A ELECTRONICALLY AUTHORIZED BY: BIJAN RENTERIA M.D. Dec 16 2010 4:41P Unknown IMG FLUORO ORDERABLE S documented in this encounter Visit Diagnoses Not on filedocumented in this encounter Care Teams Pavilion Cutter Relationship Specialty Start Date End Date Dom Kennedy MD [facility] [place] [address] PCP - General 12/28/16 documented as of this encounter
--- OUTSIDE RECORDS SUMMARY | 2024-03-14 17:11 | XMS_ITS | Encounter Summary ---
Author Organization [facility] [place] [address] Care Team Providers Care Plant Health Care Technician Name Role Phone Keo Orozco SPLITTER TENDER Primary Care Provider Encounter Details Date Type Department Care Team ([facility] st Contact Info) Description 06/21/2011 1:00 PM EST Follow-Up [address] [phone] Janie Saravia PA [address] [place] [address] Social History Tobacco Use Types Packs/Day Years Used Date Smoking Tobacco: Never Assessed Sex and Gender Information Value Date Recorded Sex Assigned at Not on file Gender Identity Not on file Sexual Orientation Not on file documented as of this encounter Plan of Treatment Not on file documented as of this encounter Visit Diagnoses Not on filedocumented in this encounter Care Teams Plant Health Care Technician Relationship Specialty Start Date End Date Keo Orozco APRN [address] [place] [address] PCP - General 09/30/10 09/29/11 documented as of this encounter
--- OUTSIDE RECORDS SUMMARY | 2024-03-14 17:11 | XMS_ITS | Encounter Summary ---
Author Organization [place] [address] Care Team Providers Care Literature Teacher Name Role Phone Keo Orozco OFFICE AUTOMATION TECHNICIAN Primary Care Provider Encounter Details Date Type Department Care Team (Late st Contact Info) Description 06/21/2011 11:15 AM EST Laboratory Appointment [address] [address] Social History Tobacco Use [...] on filedocumented in this encounter Care Teams Literature Teacher Relationship Specialty Start Date End Date Keo Orozco APRN [address] [place] [address] PCP - General 09/30/10 09/29/11 documented as of this encounter
--- OUTSIDE RECORDS SUMMARY | 2024-03-14 17:11 | XMS_ITS | Encounter Summary ---
[place] [address] Care Team Providers Care Radio Intelligence Operator Name Role Phone Michael Mims MD Primary Care Provider [phone] Encounter Details Date Type Department Care Team ([facility] st Contact Info) Description 02/23/2012 11:00 AM EDT Office Visit [facility] [address] [place] [phone] David Holliday, PhD [address] [place] [address] Social History Tobacco Use Types Packs/Day Years Used Date Smoking Tobacco: Never Assessed Sex and Gender Information Value Date Recorded Sex Assigned at Not on file Gender Identity Not on file Sexual Orientation Not on file documented as of this encounter Plan of Treatment Not on file documented as of this encounter Visit Diagnoses Not on filedocumented in this encounter Care Teams Radio Intelligence Operator Relationship Specialty Start Date End Date Michael Mims MD [address] [place] [address] PCP - General 10/11/11 03/21/14 documented as of this encounter
--- OUTSIDE RECORDS SUMMARY | 2024-03-14 17:11 | XMS_ITS | Encounter Summary ---
[place] [address] Care Team Providers Care Gullet Slitter Name Role Phone Dom Kennedy MD Primary Care Provider [phone] Encounter Details Date Type Department Care Team (Late st Contact Info) Description 01/04/2012 Abstract [facility] [address] [place] [phone] Provider, His Bull MD Social History Tobacco [...] Procedure Name Priority Date/Time Associated Diagnosis Comments U ALBUMIN/CRE RATIO Routine 01/04/2012 2 :53 PM EDT documented in this encounter Results * (ABNORMAL) U Albumin/Cre Ratio (01/04/2012 2:53 PM EDT) Alb/Cr Ratio, Random 42.9(EXTE RNAL/ABN) <30 milligrams per gram [facility] RESULT CONVERSION Comment: Sourced from Yol[facility] Gottlieb Conversion 01/04/2012 2:53 PM EDT His Bull Provider URINE ORDERABLES [facility] RESULT CONVERSION documented in this encounter Visit Diagnoses Not on filedocumented in this encounter Care Teams Gullet Slitter Relationship Specialty Start Date End Date Dom Kennedy MD [address] [place], [place] [address] [address] PCP - General 12/28/16 documented as of this encounter
--- OUTSIDE RECORDS SUMMARY | 2024-03-14 17:11 | XMS_ITS | Encounter Summary ---
Author Organization [facility] [place] [address] Care Team Providers Care Tableau Administrator Name Role Phone Michael Mims MD Primary Care Provider [phone] Encounter Details Date Type Department Care Team (Late st Contact Info) Description 12/10/2011 9:00 AM EDT Laboratory Appointment [address] [phone] Social History Tobacco Use Types Packs/Day Years Used Date Smoking Tobacco: Never Assessed Sex and Gender Information Value Date Recorded Sex Assigned at Not on file Gender Identity Not on file Sexual Orientation Not on file documented as of this encounter Plan of Treatment Not on file documented as of this encounter Visit Diagnoses Not on filedocumented in this encounter Care Teams Tableau Administrator Relationship Specialty Start Date End Date Michael Mims MD [address] [place] [address] PCP - General 10/11/11 03/21/14 documented as of this encounter
--- OUTSIDE RECORDS SUMMARY | 2024-03-14 17:11 | XMS_ITS | Encounter Summary ---
[place] [address] Care Team Providers Care Election Assistant Name Role Phone Dom Kennedy MD Primary Care Provider [phone] Encounter Details Date Type Department Care Team (Late st Contact Info) Description 01/04/2012 Abstract [facility] Information [facility] [address] [place] [phone] Provider, His Bull MD Social History Tobacco [...] Date/Time Associated Diagnosis Comments PSA (ULTRASENSITIVE) Routine 01/04/2012 3:00 PM EDT documented in this encounter Results * (ABNORMAL) PSA (01/04/2012 3:00 PM EDT) PSA Total 0.80(Exter nal Lab) 0.00 - 4.0 ng/ml [facility] RESULT CONVERSION Comment: Sourced from Yolande Gottlieb Conversion 01/04/2012 3:00 PM EDT His Bull Provider CHEMISTRY ORDERABL ES [facility] RESULT CONVERSION documented in this encounter Visit Diagnoses Not on filedocumented in this encounter Care Teams Election Assistant Relationship Specialty Start Date End Date Dom Kennedy MD [address] [place] [address] [place] [address] PCP - General 12/28/16 documented as of this encounter
--- OUTSIDE RECORDS SUMMARY | 2024-03-14 17:11 | XMS_ITS | Encounter Summary ---
Author Organization [facility] [address] Care Team Providers Care Ophthalmic Technician Name Role Phone Aftab Coles MD, Dom Conrad Primary Care Provider [phone] Encounter Details Date Type Department Care Team (Late st Contact Info) Description 08/21/2010 4:00 AM EST Procedure visit [address] [address] Social History Tobacco Use Types [...] on filedocumented in this encounter Care Teams Ophthalmic Technician Relationship Specialty Start Date End Date Dom Ugalde Jr., MD PCP - General 08/11/10 09/03/10 documented as of this encounter
--- OUTSIDE RECORDS SUMMARY | 2024-03-14 17:11 | XMS_ITS | Encounter Summary ---
[place] [address] Care Team Providers Care Blasting Coal Miner Name Role Phone Aftab Coles MD, Dom Conrad Primary Care Provider [phone] Encounter Details Date Type Department Care Team ([facility] st Contact Info) Description 08/21/2010 9:30 AM EST Procedure visit [facility] [address] [place] [address] Ramirez Ahuja MD [address] [place] [address] Social History Tobacco Use Types [...] on filedocumented in this encounter Care Teams Blasting Coal Miner Relationship Specialty Start Date End Date Dom Ugalde Jr., MD PCP - General 08/11/10 09/03/10 documented as of this encounter
--- OUTSIDE RECORDS SUMMARY | 2024-03-14 17:11 | XMS_ITS | Encounter Summary ---
[place] [address] Care Team Providers Care Utilization Manager Name Role Phone Dom Kennedy MD Primary Care Provider [phone] Encounter Details Date Type Department Care Team (Late st Contact Info) Description 08/15/2009 External Results Lab at [address] [phone] Social History Tobacco Use Types Packs/Day Years Used Date Smoking Tobacco: Never Assessed Sex and Gender Information Value Date Recorded Sex Assigned at Not on file Gender Identity Not on file Sexual Orientation Not on file documented as of this encounter Plan of Treatment Not on file documented as of this encounter Procedures Procedure Name Priority Date/Time Associated Diagnosis Comments SURGICAL PATHOLOGY REPORT Routine 02/04/2010 1:47 PM EDT documented in this encounter Results * Surgical Pathology Report (02/04/2010 1:47 PM EDT) FINAL DIAGNOSIS (AP) [facility] Final Diagnosis 1. ??ASCENDING COLON BIOPSY: NO DIAGNOSTIC PATHOLOGY PRESENT. 2. ??SIGMOID COLON BIOPSY: TUBULOVILLOUS ADENOMA. Signed by Olman Stuart M.D. on 02/05/2010 01:17 PM Clinical Diagnosis Screening. Clinical Impression Polyps. Specimen(s) Received: 1. ??ASCENDING COLON BX ?Dion: 02/04/2010 01:47 PM 2. ??SIGMOID POLYP ?Dion: 02/04/2010 01:47 PM Gross Description 1. ??Received in formalin, labeled ascending colon biopsy, are two, 3-mm biopsies. Totally submitted in cassette 1. 2. ??Received in formalin, labeled sigmoid polyp, is a polyp that measures 1.7 x 1 x 2.9 cm in greatest dimensions and has no visible stalk. ??It has a granular lobulated surface. ??Serially cross-sectioned and totally submitted in two cassettes. Conversion Summary [facility] Case Type: ? Routine Surgical Requesting Provider: ??LETICIA GALEANA M.D. [facility] Pathology Staff Roles Gross: Olman Stuart M.D. ? (P) N ? (ADDITIONAL) Pathologist: Olman Stuart M.D. ? (P) [facility] REPORT CONVERSION 02/04/2010 1:47 PM EDT Provider Kristin Pathology Report Convers ion PATHOLOGY/CYTOLOGY ORDERABLES [facility] REPORT CONVERSION documented in this encounter Visit Diagnoses Not on filedocumented in this encounter Care Teams Utilization Manager Relationship Specialty Start Date End Date Dom [place] [address] PCP - General 12/28/16 documented as of this encounter
--- OUTSIDE RECORDS SUMMARY | 2024-03-14 17:11 | XMS_ITS | Encounter Summary ---
Author Organization [facility] [place] [address] Care Team Providers Care Casino Accountant Name Role Phone Keo Orozco APRN Primary Care Provider Encounter Details Date Type Department Care Team (Late st Contact Info) Description 02/19/2011 3:00 PM EDT Procedure visit [address] [address] Radiology, [place] Social History Tobacco Use Types Packs/Day Years Used Date Smoking Tobacco: Never Assessed Sex and Gender Information Value Date Recorded Sex Assigned at Not on file Gender Identity Not on file Sexual Orientation Not on file documented as of this encounter Plan of Treatment Not on file documented as of this encounter Visit Diagnoses Not on filedocumented in this encounter Care Teams Casino Accountant Relationship Specialty Start Date End Date Keo Orozco APRN [address] [place] [address] PCP - General 09/30/10 09/29/11 documented as of this encounter
--- OUTSIDE RECORDS SUMMARY | 2024-03-14 17:11 | XMS_ITS | Encounter Summary ---
[place] [address] Care Team Providers Care Concrete Batcher Name Role Phone Keo Orozco APRN Primary Care Provider Encounter Details Date Type Department Care Team (Late st Contact Info) Description 03/08/2011 3:00 PM EDT Office Visit [facility] [address] [place] [phone] Lawson Mixon III, MD [address] [place] [address] Social History Tobacco Use Types Packs/Day Years Used Date Smoking Tobacco: Never Assessed Sex and Gender Information Value Date Recorded Sex Assigned at Not on file Gender Identity Not on file Sexual Orientation Not on file documented as of this encounter Plan of Treatment Not on file documented as of this encounter Visit Diagnoses Not on filedocumented in this encounter Care Teams Concrete Batcher Relationship Specialty Start Date End Date Keo Orozco APRN [address] [place] [address] PCP - General 09/30/10 09/29/11 documented as of this encounter
--- OUTSIDE RECORDS SUMMARY | 2024-03-14 17:11 | XMS_ITS | Encounter Summary ---
Author Organization [facility] [place] [address] Care Team Providers Care Policy Checker Name Role Phone Keo Orozco GYM TEACHER Primary Care Provider Encounter Details Date Type Department Care Team (Late st Contact Info) Description 12/03/2010 6:15 AM EDT Office Visit [address] [address] Social History Tobacco Use Types [...] filedocumented in this encounter Care Teams Policy Checker Relationship Specialty Start Date End Date Keo Orozco APRN [address] [place] [address] PCP - General 09/30/10 09/29/11 documented as of this encounter
--- OUTSIDE RECORDS SUMMARY | 2024-03-14 17:11 | XMS_ITS | Encounter Summary ---
[place] [address] Care Team Providers Care Radio Television Announcer Name Role Phone Michael Mims MD Primary Care Provider [phone] Encounter Details Date Type Department Care Team ([facility] st Contact Info) Description 03/16/2012 11:00 AM EDT Office Visit [facility] [address] [place] [phone] David Holliday, PhD [address] [place] [address] Social History Tobacco Use Types Packs/Day Years Used Date Smoking Tobacco: Never Assessed Sex and Gender Information Value Date Recorded Sex Assigned at Not on file Gender Identity Not on file Sexual Orientation Not on file documented as of this encounter Plan of Treatment Not on file documented as of this encounter Visit Diagnoses Not on filedocumented in this encounter Care Teams Radio Television Announcer Relationship Specialty Start Date End Date Michael Mims MD [address] [place] [address] PCP - General 10/11/11 03/21/14 documented as of this encounter
--- OUTSIDE RECORDS SUMMARY | 2024-03-14 17:11 | XMS_ITS | Encounter Summary ---
[place] [address] Care Team Providers Care Remodeler Name Role Phone Aftab Coles MD, Dom Conrad Primary Care Provider [phone] Encounter Details Date Type Department Care Team (Late st Contact Info) Description 08/19/2010 3:45 PM EST Office Visit [address] [phone] Keo Orozco APRN [address] [place] [address] Social History Tobacco Use Types Packs/Day Years Used Date Smoking Tobacco: Never Assessed Sex and Gender Information Value Date Recorded Sex Assigned at Not on file Gender Identity Not on file Sexual Orientation Not on file documented as of this encounter Plan of Treatment Not on file documented as of this encounter Visit Diagnoses Not on filedocumented in this encounter Care Teams Remodeler Relationship Specialty Start Date End Date Dom Ugalde Jr., MD PCP - General 08/11/10 09/03/10 documented as of this encounter
--- OUTSIDE RECORDS SUMMARY | 2024-03-14 17:11 | XMS_ITS | Encounter Summary ---
[place] [address] Care Team Providers Care Citrix Consultant Name Role Phone Aftab Coles MD, Dom Conrad Primary Care Provider [phone] Encounter Details Date Type Department Care Team ([facility] st Contact Info) Description 09/11/2010 4:00 PM EST Office Visit [facility] [address] [place] [address] Bijan Wallace, DPM [address] [place], [place] [phone] Social History Tobacco Use Types Packs/Day Years Used Date Smoking Tobacco: Never Assessed Sex and Gender Information Value Date Recorded Sex Assigned at Not on file Gender Identity Not on file Sexual Orientation Not on file documented as of this encounter Plan of Treatment Not on file documented as of this encounter Visit Diagnoses Not on filedocumented in this encounter Care Teams Citrix Consultant Relationship Specialty Start Date End Date Dom Ugalde Jr., MD PCP - General 09/09/10 09/29/10 documented as of this encounter
--- OUTSIDE RECORDS SUMMARY | 2024-03-14 17:11 | XMS_ITS | Encounter Summary ---
[place] [address] Care Team Providers Care Institution Director Name Role Phone Michael Mims MD Primary Care Provider [phone] Encounter Details Date Type Department Care Team ([facility] st Contact Info) Description 11/10/2012 10:45 AM EDT Follow-Up [facility] [address] [place] [phone] Ramirez Ahuja MD [address] [place] [address] Social History Tobacco Use Types Packs/Day Years Used Date Smoking Tobacco: Never Assessed Sex and Gender Information Value Date Recorded Sex Assigned at Not on file Gender Identity Not on file Sexual Orientation Not on file documented as of this encounter Plan of Treatment Not on file documented as of this encounter Visit Diagnoses Not on filedocumented in this encounter Care Teams Institution Director Relationship Specialty Start Date End Date Michael Mims MD [address] [place] [address] PCP - General 10/11/11 03/21/14 documented as of this encounter
--- OUTSIDE RECORDS SUMMARY | 2024-03-14 17:11 | XMS_ITS | Encounter Summary ---
[place] [address] Care Team Providers Care Stem Lead Former Name Role Phone Keo Orozco APRN Primary Care Provider Encounter Details Date Type Department Care Team ([facility] st Contact Info) Description 06/21/2011 2:00 PM EST Follow-Up [facility] [address] [place] [address] Ramirez Ahuja MD [address] [place] [address] Social History Tobacco Use Types [...] on filedocumented in this encounter Care Teams Stem Lead Former Relationship Specialty Start Date End Date Keo Orozco APRN [address] [place] [address] PCP - General 09/30/10 09/29/11 documented as of this encounter
--- OUTSIDE RECORDS SUMMARY | 2024-03-14 17:11 | XMS_ITS | Encounter Summary ---
[place] [address] Care Team Providers Care Bread Pan Greaser Name Role Phone Michael Mims MD Primary Care Provider [phone] Encounter Details Date Type Department Care Team ([facility] st Contact Info) Description 01/19/2012 1:30 PM EDT Follow-Up [facility] [address] [place] [phone] Ramirez Ahuja MD [address] [place] [address] Social History Tobacco Use Types Packs/Day Years Used Date Smoking Tobacco: Never Assessed Sex and Gender Information Value Date Recorded Sex Assigned at Not on file Gender Identity Not on file Sexual Orientation Not on file documented as of this encounter Plan of Treatment Not on file documented as of this encounter Visit Diagnoses Not on filedocumented in this encounter Care Teams Bread Pan Greaser Relationship Specialty Start Date End Date Michael Mims MD [address] [place] [address] PCP - General 10/11/11 03/21/14 documented as of this encounter
--- OUTSIDE RECORDS SUMMARY | 2024-03-14 17:11 | XMS_ITS | Encounter Summary ---
[place] [address] Care Team Providers Care Dross Skimmer Name Role Phone Michael Mims MD Primary Care Provider [phone] Encounter Details Date Type Department Care Team ([facility] st Contact Info) Description 04/05/2012 3:30 PM EDT Office Visit [facility] [address] [place] [phone] David Holliday, PhD [address] [place] [address] Social History Tobacco Use Types Packs/Day Years Used Date Smoking Tobacco: Never Assessed Sex and Gender Information Value Date Recorded Sex Assigned at Not on file Gender Identity Not on file Sexual Orientation Not on file documented as of this encounter Plan of Treatment Not on file documented as of this encounter Visit Diagnoses Not on filedocumented in this encounter Care Teams Dross Skimmer Relationship Specialty Start Date End Date Michael Mims MD [address] [place] [address] PCP - General 10/11/11 03/21/14 documented as of this encounter
--- OUTSIDE RECORDS SUMMARY | 2024-03-14 17:11 | XMS_ITS | Encounter Summary ---
[place] [address] Care Team Providers Care Boatbuilder Apprentice Wood Name Role Phone Keo Orozco APRN Primary Care Provider Encounter Details Date Type Department Care Team ([facility] st Contact Info) Description 11/12/2010 9:15 AM EDT Office Visit [facility] [address] [place] [address] Ramirez Ahuja MD [address] [place] [address] Social History Tobacco Use Types [...] on filedocumented in this encounter Care Teams Boatbuilder Apprentice Wood Relationship Specialty Start Date End Date Keo Orozco APRN [address] [place] [address] PCP - General 09/30/10 09/29/11 documented as of this encounter
--- OUTSIDE RECORDS SUMMARY | 2024-03-14 17:11 | XMS_ITS | Encounter Summary ---
[place] [address] Care Team Providers Care Car Porter Name Role Phone Unavailable Primary Care Provider Unavailabl e Encounter Details Date Type Department Care Team (Late st Contact Info) Description 06/24/2010 9:00 AM EST Procedure visit [address] [address] Janie Saravia MD [facility] Social History Tobacco Use Types Packs/Day Years [...]
--- OUTSIDE RECORDS SUMMARY | 2024-03-14 17:11 | XMS_ITS | Encounter Summary ---
Author Organization [facility] [place] [address] Care Team Providers Care Riprap Placer Name Role Phone Dom Kennedy MD Primary Care Provider Encounter Details Date Type Department Care Team (Late st Contact Info) Description 08/21/2010 Abstract [facility] Information Services [address] [place] [phone] Provider, His [place] MD Social History Tobacco [...] Procedure Name Priority Date/Time Associated Diagnosis Comments EXTERNAL DIABETES EYE EXAM RESULT Routine 08/17/2011 5:11 PM EST TSH Routine 08/21/2010 10:52 AM EST documented in this encounter Results * (ABNORMAL) Diabetes External Eye Exam (08/17/2011 5:11 PM EST) External DM Eye Exam 08/17/2011 5:11:20 PM; See Crack system for full report(Externa l Lab) [facility] LAB RESULT CONVERSION Comment:Sourced from Mckenna Gottlieb Conversion Anatomical Region Laterality Modality Other 08/17/2011 5:11 PM EST His Gottlieb Provider OPHTHALMOLOGY SERV ICES ORDERABLES * (ABNORMAL) TSH (08/21/2010 10:52 AM EST) TSH 2.88(Exter nal Lab) 0.30 - 5.5 uIU/mL [facility] RESULT CONVERSION Comment: Sourced from Yolande Gottlieb Conversion 08/21/2010 10:5 2 AM EST His [place] Provider CHEMISTRY ORDERABL ES [facility] RESULT CONVERSION documented in this encounter Visit Diagnoses Not on filedocumented in this encounter Care Teams Riprap Placer Relationship Specialty Start Date End Date Dom [place] MD [address] [place] [address] PCP - General 12/28/16 documented as of this encounter
--- OUTSIDE RECORDS SUMMARY | 2024-03-14 17:11 | XMS_ITS | Encounter Summary ---
[place] [address] Care Team Providers Care Air Bag Buffer Name Role Phone Keo Orozco MEDICAL STAFF PHYSICIAN Primary Care Provider Encounter Details Date Type Department Care Team (Late st Contact Info) Description 02/19/2011 9:45 AM EDT Office Visit [address] [phone] Keo Orozco APRN [address] [place] [address] Social History Tobacco Use Types Packs/Day Years Used Date Smoking Tobacco: Never Assessed Sex and Gender Information Value Date Recorded Sex Assigned at Not on file Gender Identity Not on file Sexual Orientation Not on file documented as of this encounter Plan of Treatment Not on file documented as of this encounter Visit Diagnoses Not on filedocumented in this encounter Care Teams Air Bag Buffer Relationship Specialty Start Date End Date Keo Orozco APRN [address] [place] [address] PCP - General 09/30/10 09/29/11 documented as of this encounter
--- OUTSIDE RECORDS SUMMARY | 2024-03-14 17:11 | XMS_ITS | Encounter Summary ---
Author Organization [facility] [place] [address] Care Team Providers Care Electronics Manufacturer Name Role Phone Keo Orozco APRN Primary Care Provider [phone] Encounter Details Date Type Department Care Team (Late st Contact Info) Description 03/05/2011 10:00 AM EDT Office Visit [facility] [address] [place] [phone] Damon Gutierres MD [address] [place] [address] Social History Tobacco Use Types Packs/Day Years Used Date Smoking Tobacco: Never Assessed Sex and Gender Information Value Date Recorded Sex Assigned at Not on file Gender Identity Not on file Sexual Orientation Not on file documented as of this encounter Plan of Treatment Not on file documented as of this encounter Visit Diagnoses Not on filedocumented in this encounter Care Teams Electronics Manufacturer Relationship Specialty Start Date End Date Keo Orozco APRN [address] [place] [address] PCP - General 09/30/10 09/29/11 documented as of this encounter
--- OUTSIDE RECORDS SUMMARY | 2024-03-14 17:11 | XMS_ITS | Encounter Summary ---
Author Organization [facility] [place] [address] Care Team Providers Care Public Policy Mediator Name Role Phone Keo Orozco FINANCIAL SALES ASSOCIATE Primary Care Provider Encounter Details Date Type Department Care Team (Late st Contact Info) Description 03/18/2011 2:30 PM EDT Office Visit [address] [address] Social History Tobacco Use Types [...] filedocumented in this encounter Care Teams Public Policy Mediator Relationship Specialty Start Date End Date Keo Orozco APRN [address] [place] [address] PCP - General 09/30/10 09/29/11 documented as of this encounter
--- OUTSIDE RECORDS SUMMARY | 2024-03-14 17:11 | XMS_ITS | Encounter Summary ---
Author Organization [facility] [place] [address] Care Team Providers Care Crude Oil Treater Name Role Phone Michael Mims MD Primary Care Provider [phone] Encounter Details Date Type Department Care Team (Late st Contact Info) Description 01/04/2012 12:00 PM EDT Laboratory Appointment [address] [phone] Social History Tobacco Use Types Packs/Day Years Used Date Smoking Tobacco: Never Assessed Sex and Gender Information Value Date Recorded Sex Assigned at Not on file Gender Identity Not on file Sexual Orientation Not on file documented as of this encounter Plan of Treatment Not on file documented as of this encounter Visit Diagnoses Not on filedocumented in this encounter Care Teams Crude Oil Treater Relationship Specialty Start Date End Date Michael Mims MD [address] [place] [address] PCP - General 10/11/11 03/21/14 documented as of this encounter
--- OUTSIDE RECORDS SUMMARY | 2024-03-14 17:11 | XMS_ITS | Encounter Summary ---
[place] [address] Care Team Providers Care Business Department Chair Name Role Phone Dom [place] MD Primary Care Provider [phone] Encounter Details Date Type Department Care Team (Late st Contact Info) Description 12/05/2015 Abstract [facility] Information Services [address] [place] [phone] Provider, His MD [place] Social History Tobacco Use Types Packs/Day Years Used Date Smoking Tobacco: Never Smokeless Tobacco: Never Sex and Gender Information Value Date Recorded Sex Assigned at Not on file Gender Identity Not on file Sexual Orientation Not on file documented as of this encounter Last Filed Vital Signs Vital Sign Reading Time Taken Comments Blood Pressure 132/90 12/05/2015 10:00 AM EDT Sourced from [place] Conversion Pulse 72 12/05/2015 10:00 AM EDT Sourced from [place] Conversion Temperature - - Respiratory Rate - - Oxygen Saturation - - Inhaled Oxygen Concentration - - Weight 97.2 kg (214 lb 6 oz) 12/05/2015 10:00 AM EDT Sourced from [place] Conversion Height 175.3 cm (5' 9) 12/05/2015 10:0 0 AM EDT Sourced from [place] Conversion Body Mass Index 31.66 12/05/2015 10:00 AM EDT documented in this encounter Plan of Treatment Not on file documented as of this encounter Visit Diagnoses Not on filedocumented in this encounter Care Teams Business Department Chair Relationship Specialty Start Date End Date Dom [place] MD [address] [place] [address] [place] [phone] PCP - General 12/28/16 documented as of this encounter
--- OUTSIDE RECORDS SUMMARY | 2024-03-14 17:11 | XMS_ITS | Encounter Summary ---
Author [facility] [place] [address] Care Team Providers Care Chief Yeoman Name Role Phone Dom [place] MD Primary Care Provider [phone] Encounter Details Date Type Department Care Team (Late st Contact Info) Description 12/16/2010 [place] [phone] Unknown None Social History Tobacco Use Types Packs/Day Years Used Date Smoking Tobacco: Never Assessed Sex and Gender Information Value Date Recorded Sex Assigned at Not on file Gender Identity Not on file Sexual Orientation Not on file documented as of this encounter Plan of Treatment Not on file documented as of this encounter Procedures Procedure Name Priority Date/Time Associated Diagnosis Comments CT CHEST W CONTRAST Routine 12/16/2010 1 2:04 PM EDT documented in this encounter Results * CT Chest w Contrast (12/16/2010 12:04 PM EDT) Anatomical Region Laterality Modality Chest Computed Tomogra phy 12/16/2010 12:0 4 PM EDT Narrative 12/18/2010 8:53 AM EDT External Results Connor Gottlieb Final Report EXAMINATION: ??CT ??7991 - CT CHEST W/CONTRAST ??[id number] DIAGNOSIS: ?MORBID OBESITY, GERD, DIABETES REASON: ? elevated O2 demand/ Elevated HR RESULT: ? CT chest. ?? Date: ??12/16/10. Clinical history: ? Patient is a 49 year old male with possible PE. CT of the chest was acquired after injection of contrast. I do not see any evidence of pulmonary embolus on this examination. ??There is a small amount of pericardial air present, certainly consistent with recent surgery and would not appear of any clinical concern. ??No pericardial effusion is seen. ??The patient does have significant atelectasis at the lung bases and trace bilateral pleural effusions and very poor inspiration. ??No endobronchial lesion is seen. IMPRESSION: 1. ? I do not see any evidence of pulmonary embolus. 2. ? Poor inspiration and probably as a result of that, significant bibasilar atelectasis. ??I suspect this patient's dyspnea may be due to poor inspiration and atelectasis rather than any other major pathology. 3. ? Trace air in the mediastinum likely related to recent surgery and would not appear clinically relevant. 4. ? There is no pneumothorax. 5. ? Images of the upper abdomen are essentially unremarkable. ??The band appears to be in good position. 6. ? Patient does have a fatty liver and cholelithiasis as incidental findings. INTERPRETING PHYSICIAN: ??KEO MADISON M.D. ? TRANSCRIBED BY/DATE: ?? LS ??on December ??4 2010 ??1:05P ELECTRONICALLY AUTHORIZED BY: ?? KEO MADISON M.D. ? May ??6 2010 ??8:53A Procedure Note Keo Madison MD - 04/01/2017 External Results Connor Gottlieb Final Report EXAMINATION: CT 7991 - CT CHEST W/CONTRAST [address]199 DIAGNOSIS: MORBID OBESITY, GERD, DIABETES REASON: elevated O2 demand/ Elevated HR RESULT: CT chest. Date: 12/16/10. Clinical history: Patient is a 49 year old male with possible PE. CT of the chest was acquired after injection of contrast. I do not see any evidence of pulmonary embolus on this examination.There is a small amount of pericardial air present, certainly consistent with recent surgery and would not appear of any clinical concern. Nopericardial effusion is seen. The patient does have significant atelectasis at thelung bases and trace bilateral pleural effusions and very poor inspiration.No endobronchial lesion is seen. IMPRESSION: 1. I do not see any evidence of pulmonary embolus. 2. Poor inspiration and probably as a result of that, significant bibasilar atelectasis. I suspect this patient's dyspnea may be due topoor inspiration and atelectasis rather than any other major pathology. 3. Trace air in the mediastinum likely related to recent surgery and would not appear clinically relevant. 4. There is no pneumothorax. 5. Images of the upper abdomen are essentially unremarkable. Theband appears to be in good position. 6. Patient does have a fatty liver and cholelithiasis as incidental findings. INTERPRETING PHYSICIAN: KEO MADISON M.D. TRANSCRIBED BY/DATE: PORTER on Dec 16 2010 1:05P ELECTRONICALLY AUTHORIZED BY: KEO MADISON M.D. Dec 18 2010 8:53A Unknown IMG CT ORDERABLES documented in this encounter Visit Diagnoses Not on filedocumented in this encounter Care Teams Chief Yeoman Relationship Specialty Start Date End Date Dom [place] MD [address] [place] [address] PCP - General 12/28/16 documented as of this encounter
--- OUTSIDE RECORDS SUMMARY | 2024-03-14 17:11 | XMS_ITS | Encounter Summary ---
[place] [address] Care Team Providers Care Associate School Psychologist Name Role Phone Michael Mims MD Primary Care Provider [phone] Encounter Details Date Type Department Care Team ([facility] st Contact Info) Description 03/22/2014 1:30 PM EDT Follow-Up [address] [address] Janie Saravia PA [address] [place] [address] Social History Tobacco Use Types Packs/Day Years Used Date Smoking Tobacco: Never Assessed Sex and Gender Information Value Date Recorded Sex Assigned at Not on file Gender Identity Not on file Sexual Orientation Not on file documented as of this encounter Plan of Treatment Not on file documented as of this encounter Visit Diagnoses Not on filedocumented in this encounter Care Teams Associate School Psychologist Relationship Specialty Start Date End Date Michael Mims MD [address] [place] [address] PCP - General 03/22/14 05/28/14 documented as of this encounter
--- OUTSIDE RECORDS SUMMARY | 2024-03-14 17:11 | XMS_ITS | Encounter Summary ---
[place] [address] Care Team Providers Care Chief Nuclear Medicine Technologist Name Role Phone Michael Mims MD Primary Care Provider [phone] Encounter Details Date Type Department Care Team ([facility] st Contact Info) Description 12/15/2011 8:00 AM EDT Follow-Up [address] [address] Janie Saravia PA [address] [place] [address] Social History Tobacco Use Types Packs/Day Years Used Date Smoking Tobacco: Never Assessed Sex and Gender Information Value Date Recorded Sex Assigned at Not on file Gender Identity Not on file Sexual Orientation Not on file documented as of this encounter Plan of Treatment Not on file documented as of this encounter Visit Diagnoses Not on filedocumented in this encounter Care Teams Chief Nuclear Medicine Technologist Relationship Specialty Start Date End Date Michael Mims MD [address] [place] [address] PCP - General 10/11/11 03/21/14 documented as of this encounter
--- OUTSIDE RECORDS SUMMARY | 2024-03-14 17:11 | XMS_ITS | Encounter Summary ---
[place] [address] Care Team Providers Care Bowling Ball Grader Name Role Phone Keo Orozco APRN Primary Care Provider Encounter Details Date Type Department Care Team ([facility] st Contact Info) Description 12/21/2010 9:00 AM EDT Follow-Up [facility] [address] [place] [address] Ramirez Ahuja MD [address] [place], [place] [phone] Social History Tobacco Use Types Packs/Day Years Used Date Smoking Tobacco: Never Assessed Sex and Gender Information Value Date Recorded Sex Assigned at Not on file Gender Identity Not on file Sexual Orientation Not on file documented as of this encounter Plan of Treatment Not on file documented as of this encounter Visit Diagnoses Not on filedocumented in this encounter Care Teams Bowling Ball Grader Relationship Specialty Start Date End Date Keo Orozco APRN [address] [place] [address] PCP - General 09/30/10 09/29/11 documented as of this encounter
--- OUTSIDE RECORDS SUMMARY | 2024-03-14 17:11 | XMS_ITS | Encounter Summary ---
Author Organization [facility] [place] [address] Care Team Providers Care Rickshaw Driver Name Role Phone Keo Orozco DRY CLEANING MANAGER Primary Care Provider Encounter Details Date Type Department Care Team (Late st Contact Info) Description 12/09/2010 10:00 AM EDT Procedure visit [address] [address] Social History Tobacco Use Types [...] on filedocumented in this encounter Care Teams Rickshaw Driver Relationship Specialty Start Date End Date Keo Orozco APRN [address] [place] [address] PCP - General 09/30/10 09/29/11 documented as of this encounter
--- OUTSIDE RECORDS SUMMARY | 2024-03-14 17:11 | XMS_ITS | Encounter Summary ---
[place] [address] Care Team Providers Care Buffing Wheel Operator Name Role Phone Michael Mims MD Primary Care Provider [phone] Encounter Details Date Type Department Care Team ([facility] st Contact Info) Description 03/22/2014 1:00 PM EDT Office Visit [facility] [address] [place] [phone] Ramirez Ahuja MD [address] [place] [address] Social History Tobacco Use Types Packs/Day Years Used Date Smoking Tobacco: Never Assessed Sex and Gender Information Value Date Recorded Sex Assigned at Not on file Gender Identity Not on file Sexual Orientation Not on file documented as of this encounter Plan of Treatment Not on file documented as of this encounter Visit Diagnoses Not on filedocumented in this encounter Care Teams Buffing Wheel Operator Relationship Specialty Start Date End Date Michael Mims MD [address] [place] [address] PCP - General 03/22/14 05/28/14 documented as of this encounter
[2024-03-14 19:37] LABS: HCT 40.9 % (40.0-50.0); HGB 14.1 g/dL (13.5-17.5); MCHC 34.5 % (32.0-36.0); MCV 93 fL (80-95); MPV 8.9 fL (8.0-11.0); Platelet Count 302 10^3/uL (130-400); RDW 11.9 % (11.8-14.1); WBC 7.48 10^3/uL (4.4-10.8)
[2024-03-14 19:41] LABS: ESR 14 mm/hr (0-20)
[2024-03-14 19:46] LABS: C-Reactive Protein < 0.50 mg/dL (<or=0.5)
== END 2024-03-14 17:02 | disposition home or self-care (01) ==
LOC: NCHCN 17:01
PROVIDERS: PCP Family Medicine; Visit Provider Student in an Organized Health Care Education/Training Program
DX: M54.59 Other low back pain (principal)
CPT/HCPCS: 85027; 85652; 86140

== ENCOUNTER 2024-03-15 15:02 | Outpatient (CLI) | payer BC, SELFPAY ==
--- NOTE | 2024-03-15 14:30 | DI.RAD_ITS ---
Exam(s) XR KNEE LT 4V AP,LAT,MARY,PAT XR KNEE RT 4V AP,LAT,MARY,PAT EXAM: XR KNEE LT 4V AP,LAT,MARY,PAT CLINICAL HISTORY: eval L knee pain. TECHNIQUE: 2D digital imaging was performed. Four views of both knees. COMPARISON: No exams were available for comparison FINDINGS: BONES: No acute fracture is present. No bony destructive lesion is seen. enthesophytes at the pat romy and tibial tubercle bilaterally, larger on the left. JOINTS: The knee is normally aligned. No joint effusion is seen. The joint spaces are maintained. SOFT TISSUE: Normal. IMPRESSION: Patellar and tibial tubercle enthesophytes. DATA REPOSITORY: RADIATION DOSE DELIVERED:
--- NOTE | 2024-03-15 15:38 | DI.RAD_ITS ---
Exam(s) XR HIP PELVIS ADULT BL EXAM: XR HIP PELVIS ADULT BL CLINICAL HISTORY: eval hips for bilateral knee pain. TECHNIQUE: 2D digital imaging was performed. Three views. COMPARISON: No exams were available for comparison FINDINGS: BONES: No acute fracture is present. No bony destructive lesion is seen. Enthesophytes are noted at the iliac wings. JOINTS: No dislocation present. Mild bilateral hip joint space narrowing mild periarticular spurrin g. SI joints and pubic symphysis are unremarkable. SOFT TISSUE: Calcification of the vas deferens. IMPRESSION: Mild degenerative changes of the bilateral hips. DATA REPOSITORY: RADIATION DOSE DELIVERED:
== END 2024-03-15 15:03 | disposition home or self-care (01) ==
PROVIDERS: PCP Student in an Organized Health Care Education/Training Program; Visit Provider Student in an Organized Health Care Education/Training Program
DX: M25.562 Pain in left knee (principal); M25.561 Pain in right knee; M77.8 Other enthesopathies, not elsewhere classified; M16.11 Unilateral primary osteoarthritis, right hip; M16.12 Unilateral primary osteoarthritis, left hip
CPT/HCPCS: 73521; 73564

== ENCOUNTER 2024-05-19 06:16 | Inpatient (IN) | payer BC, SELFPAY ==
[2024-05-19] VITALS (107 sets, daily range): BP systolic 72–145; BP diastolic 25–95; PULSE 83–127; RESP 5–28; TEMP 37–39.6; O2SAT 90–98
--- NOTE | 2024-05-19 06:15 | RT.EKG_ITS ---
APPROVED REPORT Exam: Resting ECG Reason for Exam: tachy Patient Location: E HR:122 bpm ECG Measurements Heart Rate 122 AXIS WI 164 P 78 QRSd 92 QRS 89 QT 320 T 42 QTc 456 Conclusion Sinus tachycardia...rate> 99 Physician: no stemi
--- OUTSIDE RECORDS SUMMARY | 2024-05-19 06:21 | XMS_ITS | Encounter Summary ---
Author Organization [facility] Address [address] [place] [address] Care Team Providers Care Marketing Finance Manager Name Role Phone Dom [place] MD Primary Care Provider Encounter Details Date Type Department Care Team (Late st Contact Info) Description 02/08/2020 Lab Requisition [facility] Pathology & Laboratory Medicine - [address] [phone] Outr Resulting Lab, Provider Social History Tobacco [...] 0.0 - 4.5 ng/mL 02/11/2020 9:[address] [facility] Blood VENOUS BLOOD / Unknown 02/08/2020 9:15 EDT 02/08/2020 20:44 EDT [address] [facility] - 02/11/2020 9:59 EDT NOTE: Serum PSA concentration should not be interpreted as absolute evidence for the presence or absence of malignant disease. Assayed on Siemens ADVIA Centaur XPT using chemiluminescent technology.??Values obtained by using different assay methods cannot be used interchangeably. Provider Outr Resulting Lab CHEMISTRY & BLOOD GAS ORDERABLES [facility] [address] [place] [address] documented in this encounter Visit Diagnoses Not on filedocumented in this encounter Care Teams Marketing Finance Manager Relationship Specialty Start Date End Date Dom Kennedy MD [address] [place] [address] PCP - General 12/14/18 documented as of this encounter
--- OUTSIDE RECORDS SUMMARY | 2024-05-19 06:21 | XMS_ITS | Encounter Summary ---
Author Organization [facility] [place] [address] Care Team Providers Care Middle School Coach Name Role Phone Dom Kennedy MD Primary Care Provider [phone] Reason for Visit * Reason Comments Medication Refill Encounter Details Date Type Department Care Team (Late st Contact Info) Description 02/25/2023 [place] [phone] Td Blanco MD [facility] [place] [address] Type 2 diabetes mellitus with hyperglycemia, with long-term current use of insulin Social History Tobacco Use Types Packs/Day Years Used Date Smoking Tobacco: Never Smokeless Tobacco: Never Sex and Gender Information Value Date Recorded Sex Assigned at Not on file Gender Identity Not on file Sexual Orientation Not on file documented as of this encounter Plan of Treatment Upcoming Encounters Date Type Department Care Team (Late st Contact Info) Description 05/21/2024 1:00 PM EDT Office Visit Urology at [place] [phone] Luz Elena Fuentes APRN [facility] [place] [address] documented as of this encounter Visit Diagnoses Diagnosis Type 2 diabetes mellitus with hyperglycemia, with long-term current use of insulin documented in this encounter Care Teams Middle School Coach Relationship Specialty Start Date End Date Dom Kennedy MD PCP - General 12/28/16 documented as of this encounter
--- OUTSIDE RECORDS SUMMARY | 2024-05-19 06:21 | XMS_ITS | Continuity of Care Document ---
Author Organization [facility] Ambulatory Clinics Address [address] [place] [address] Care Team Providers Care Pathology Lab Technician Name Role Phone SANDRA FRIEND Primary Care Physician Encounter [facility] NBR [id number] Date(s): 05/09/24 - 05/09/24 [facility] Ambulatory Clinics [address] [place] [address] us Encounter Diagnosis Bilateral sensorineural hearing loss(Discharge Diagnosis) - 05/09/24 Discharge Disposition: Home or Self Care Attending Physician: Arden Hardy Referring Physician: SANDRA FRIEND Problem List Condition Confirmation Course Effective Dates Status H ealth Status Informant Bilateral sensorineural hearing loss Confirmed Active Note * Madeleine Izquierdo: PERFORM Event Display: Hearing Test Authored Date: [id number] Patient Care team information Care Team Personnel Name: SANDRA FRIEND Position: No Access Member Role: Primary Care Physician Address: [address] Insurance Providers Guarantor name: OPAL JALLOH Health Plan Information #: 1 Payer: [facility] Member Number: [id number] Policy Number: NA Health Plan Information #: 2 Payer: [facility] Member Number: [id number] Policy Number: NA
--- OUTSIDE RECORDS SUMMARY | 2024-05-19 06:21 | XMS_ITS | Encounter Summary ---
Author Organization [facility] Address [address] [place] [address] Care Team Providers Care Rubber Thread Spooler Name Role Phone Dom Kennedy MD Primary Care Provider [phone] Encounter Details Date Type Department Care Team (Late st Contact Info) Description 05/09/2020 Lab Requisition [facility] Pathology & Laboratory Medicine - [address] [id number] Outr Resulting Lab, Provider Social History Tobacco [...] rt-PCR Result NEGATIVE Negative 05/10/2020 21:36 EDT [facility] Comment: 2019-novel Coronavirus [...] in accordance with CLIA regulations, College [employer] (CAP) guidelines (Nov 01, 2019), and FDA guidance (Oct 13, 2019). This test is only for use under the Food and Drug Administration's Emergency Use Authorization. Swab ENTIRE NASOPHARYNX / Unknown 05/09/2020 10:54 EDT 05/09/2020 17:25 EDT Provider Outr Resulting Lab MICROBIOLOGY - GENERAL ORDERABLES [facility] [place] * COVID-19 TESTING (05/09/2020 10:54 EDT) COVID-19 rt-PCR Result NEGATIVE Negative 05/10/2020 23:35 EDT [facility] Comment: 2019-novel Coronavirus (2019-nCoV) not detected [...] in accordance with CLIA regulations, College [employer] (CAP) guidelines (Nov 01, 2019), and FDA guidance (Oct 13, 2019). This test is only for use under the Food and Drug Administration's Emergency Use Authorization. Performing Lab [facility] 05/10/2020 23:35 EDT [facility] Swab 05/09/2020 10:5 4 EDT 05/09/2020 17:25 EDT Provider Outr Resulting Lab MICROBIOLOGY - GENERAL ORDERABLES [facility] [address] [place] [address] [facility] [place] documented in this encounter Visit Diagnoses Not on filedocumented in this encounter Care Teams Rubber Thread Spooler Relationship Specialty Start Date End Date Dom Kennedy MD [address] [place] [address] PCP - General 12/14/18 documented as of this encounter
--- OUTSIDE RECORDS SUMMARY | 2024-05-19 06:21 | XMS_ITS | Encounter Summary ---
Author Organization [facility] Address [address] [place] [address] Care Team Providers Care Breast Buffer Name Role Phone Unknown, Provider Primary Care Provider [phone] Encounter Details Date Type Department Care Team (Latest Contact Info) Description 07/12/2014 15:01 EST - 07/12/2014 23:59 EST Hospital Encounter [address] [address] Unknown, Provider, Discharge Disposition: Home or Self Care Social History Tobacco Use Types Packs/Day Years Used Date Smoking Tobacco: Never Assessed Sex and Gender Information Value Date Recorded Sex Assigned at Not on file Gender Identity Not on file Sexual Orientation Not on file documented as of this encounter Discharge Disposition Disposition Code Departure Means Destination Home or Self Prison documented in this encounter Plan of Treatment Not on file documented as of this encounter Visit Diagnoses Not on filedocumented in this encounter Care Teams Breast Buffer Relationship Specialty Start Date End Date Unknown, Provider, PCP - General 06/15/13 12/13/18 documented as of this encounter
--- OUTSIDE RECORDS SUMMARY | 2024-05-19 06:21 | XMS_ITS | Encounter Summary ---
Author Organization [facility] Address [address] [place] [address] Care Team Providers Care Edm Operator Name Role Phone Unknown, Provider Primary Care Provider Encounter Details Date Type Department Care Team (Latest Contact Info) Description 06/15/2013 8:17 EDT - 06/15/2013 23:59 EDT Hospital Encounter [address] [address] Unknown, Provider, Discharge Disposition: Home or Self Care Social History Tobacco Use Types Packs/Day Years Used Date Smoking Tobacco: Never Assessed Sex and Gender Information Value Date Recorded Sex Assigned at Not on file Gender Identity Not on file Sexual Orientation Not on file documented as of this encounter Discharge Disposition Disposition Code Departure Means Destination Home or Self Longterm documented in this encounter Plan of Treatment Not on file documented as of this encounter Visit Diagnoses Not on filedocumented in this encounter Care Teams Edm Operator Relationship Specialty Start Date End Date Unknown, Provider, PCP - General 06/15/13 12/13/18 documented as of this encounter
--- OUTSIDE RECORDS SUMMARY | 2024-05-19 06:21 | XMS_ITS | Encounter Summary ---
Author Organization [facility] Address [facility] [place] [address] Care Team Providers Care Network Operations Center Technician Name Role Phone Dom Kennedy MD Primary Care Provider [phone] Encounter Details Date Type Department Care Team (Latest Contact Info) Description 07/22/2020 10:26 PM EST - 07/22/2020 11:59 PM EST Hospital [place] [address] Discharge Disposition: Home Social History Tobacco Use [...] 1:00 PM EDT Office [place] [address] Luz Elena Fuentes [facility] [place] [address] documented as of this encounter Procedures Procedure Name Priority Date/Time Associated Diagnosis Comments COVID-19 PCR Routine 07/22/2020 4:35 PM EST documented in this encounter Results * COVID-19 PCR (07/22/2020 4:35 PM EST) SARS-CoV-2 RNA Not Detected Not Detected [facility] Comment: This result should be [...] on the instructions for use provided by [employer] and additional guidance provided by CDC and FDA. Testing is performed in the [facility] within the Department of Pathology and Laboratory Medicine at [facility], certified under the Clinical Laboratory Improvement Amendments [...] fact sheets at the following FDA website: https://www.fda.gov/medical-devices/wqnlltavmbp-lousgyx-7357-fzhdv-56-zagslgttu- use-a wkuwljslfkljc-rjmmavf-bzfiowl/ykaxq-biiuwtuwjsq-fdwf SARS-CoV-2 RNA Source Nasal [facility] Specimen from nose (specimen) Other / Unknown 07/22/2020 4:35 PM EST 07/22/2020 11:24 PM EST Narrative Resulting Agency Comment Spec In Lab Chantel Mcgee MD MOLECULAR ORDERABLES [facility] [place] [address] documented in this encounter Visit Diagnoses Not on filedocumented in this encounter Care Teams Network Operations Center Technician Relationship Specialty Start Date End Date Dom Kennedy MD PCP - General 12/28/16 documented as of this encounter
--- OUTSIDE RECORDS SUMMARY | 2024-05-19 06:21 | XMS_ITS | Encounter Summary ---
Author Organization [facility] Address [address] [place] [address] Care Team Providers Care Chaperone Name Role Phone Dom Kennedy MD Primary Care Provider [phone] Encounter Details Date Type Department Care Team (Late st Contact Info) Description 03/17/2023 Lab Requisition [facility] Pathology & Laboratory Medicine - [address] [phone] Outr Resulting Lab, Provider Social History Tobacco [...] PSA 1.1 <=4.5 ng/mL 03/17/2023 22:45 EDT [facility] Blood VENOUS BLOOD / Unknown 03/17/2023 9:50 EDT 03/17/2023 21:48 EDT Narrative [facility] - 03/17/2023 22:45 EDT NOTE: Serum PSA concentration should not be interpreted as absolute evidence for the presence or absence of malignant disease. Assayed on Siemens ADVIA Centaur XPT using chemiluminescent technology.??Values obtained by using different assay methods cannot be used interchangeably. Provider Outr Resulting Lab CHEMISTRY & BLOOD GAS ORDERABLES [facility] [address] [place] [address] documented in this encounter Visit Diagnoses Not on filedocumented in this encounter Care Teams Chaperone Relationship Specialty Start Date End Date Dom Kennedy MD [address] [place], [place] [id number] PCP - General 12/14/18 documented as of this encounter
--- OUTSIDE RECORDS SUMMARY | 2024-05-19 06:21 | XMS_ITS | Referral Summary ---
Author Organization [facility] Address [address] [place] [address] Care Team Providers Care End Maker Name Role Phone Dom Kennedy MD Primary Care Provider [phone] Social History Tobacco Use Types Packs/Day Years Used Date Smoking Tobacco: Never Assessed Interpersonal Safety Answer Date Record ed Physically Hurt Never 03/16/2020 Verbally Threaten Not on file 03/16/2020 Sex and Gender Information Value Date Recorded Sex Assigned at Not on file Gender Identity Not on file Sexual Orientation Not on file Plan of Treatment Not on file Care Teams End Maker Relationship Specialty Start Date End Date Dom Kennedy MD [address] [place] [address] PCP - General 12/14/18
--- OUTSIDE RECORDS SUMMARY | 2024-05-19 06:21 | XMS_ITS | Clinical Summary ---
Author Organization [facility] Address [facility] [place] [address] Care Team Providers Care Inspector Production Plastic Parts Name Role Phone Dom Kennedy MD Primary Care Provider [phone] Allergies Active Allergy Reactions Criticality Noted Date [...] glucose scanning reader (FreeStyle Arleen 14 Day [place]) MiscIndications:Typ e 2 diabetes mellitus with hyperglycemia, with long-term current use of insulin 1 Device by [facility].(Non-Drug; Combo Route) route as needed. 1 each [...] 09/11/2015 Overview (09/11/2015): ?? Nuclear stress test [facility] in 2014 reportedly negative ?? Treadmill stress test [facility] August 21, [address] depression in eliciting mild chest discomfort at 13.5 METs and a peak blood pressure of 224 mmHg Gastroesophageal reflux 09/11/2015 Elevated blood pressure 09/11/2015 Elevated cholesterol 09/11/2015 Depression 09/11/2015 Asthma 09/11/2015 Hx of laparoscopic gastric banding 09/11/2015 Immunizations Name Administration Dates Next Due Influenza [...] 12/05/2015 10:00 AM EDT Plan of Treatment Upcoming Encounters Date Type Department Care Team (Late st Contact Info) Description 05/21/2024 1:00 PM EDT Office [place] [phone] Luz Elena Fuentes APRN [facility] [place] [address] Health Maintenance Due Date Last Done Comments CT Colonography 1959 Colonoscopy 1959 Colorectal Cancer Screening 1960 FIT DNA 1960 FIT 1960 Sigmoidoscopy (10 year) with FIT yearly 1960 Sigmoidoscopy 1960 HIV screen 12/25/1977 Hepatitis C Screening 12/25/1977 Pneumococcal Vaccine: At-Ris k 5-64yrs (2 of 2 - PCV) 08/15/2007 08/15/2006 Zoster vaccine (1 of 2) 12/25/2009 Advance Directive 12/25/2014 Tetanus/Diphtheria/Pertussis Vaccines (2 - Td or Tdap) 01/03/2022 01/04/2012 Covid-19 Vaccine (1 - season) 2024 Influenza (Flu) vaccine (1 o f 1 - Influenza standard series) 04/15/2024 06/23/2011, 05/15/2010 Diabetes Screening (HgbA1C or Glucose) Discontinued Procedures Procedure Name Priority Date/Time Associated Diagnosis Comments HEMOGLOBIN A1C Routine 12/10/2011 9:00 AM EDT from Last 3 Months or Most Recently Relevant to Health Maintenance Results * (ABNORMAL) Hemoglobin A1c (12/10/2011 9:00 AM EDT) Hemoglobin A1c 8.1(EXTER NAL/ABN) <=5.6 percent [facility] RESULT CONVERSION Comment: Sourced from Yolande Gottlieb Conversion 12/10/2011 9:00 AM EDT His Bull Provider CHEMISTRY ORDERABL ES [facility] RESULT CONVERSION from Last 3 Months or Most Recently Relevant to Health Maintenance Care Teams Inspector Production Plastic Parts Relationship Specialty Start Date End Date Dom Kennedy MD PCP - General 12/28/16
--- OUTSIDE RECORDS SUMMARY | 2024-05-19 06:21 | XMS_ITS | Encounter Summary ---
Author Organization [facility] Address [address] [place] [address] Care Team Providers Care Economic Research Analyst Name Role Phone Dom Kennedy MD Primary Care Provider [phone] Encounter Details Date Type Department Care Team (Late st Contact Info) Description 10/08/2022 Lab Requisition [facility] Pathology & Laboratory Medicine - [address] [address] Outr Resulting Lab, Provider Social History Tobacco [...] Outr Resulting Lab MICROBIOLOGY - GENERAL ORDERABLES [facility] [address] [place] [address] * COVID-19 TESTING (10/07/2022 12:43 EST) COVID-19 rt-PCR Result Negative Negative 10/09/2022 12:09 EST [facility] Comment: This test has not [...] history, and epidemiological information. Performed on the Lipocalyxher Fusion instrument Performing Lab [facility] 10/09/2022 12:09 EST [facility] Swab 10/07/2022 12:4 3 EST 10/08/2022 18:40 EST Provider Outr Resulting Lab MICROBIOLOGY - GENERAL ORDERABLES [facility] [address] [place] [address] documented in this encounter Visit Diagnoses Not on filedocumented in this encounter Care Teams Economic Research Analyst Relationship Specialty Start Date End Date Dom Kennedy MD [place] [place] [address] PCP - General 12/14/18 documented as of this encounter
--- OUTSIDE RECORDS SUMMARY | 2024-05-19 06:21 | XMS_ITS | Encounter Summary ---
Author Organization [facility] Address [address] [place] [address] Care Team Providers Care Electrical Software Engineer Name Role Phone Dom Kennedy MD Primary Care Provider Encounter Details Date Type Department Care Team (Late st Contact Info) Description 03/18/2023 Lab Requisition [facility] Pathology & Laboratory Medicine - [address] [address] Dom Kennedy MD [address] [place] [address] [place], [place] [id number] Encounter for other general examination Social History [...] management options, if applicable. 03/21/2023 10:35 EDT [facility] Final Diagnosis A. SKIN OF RASTAFARI, LEFT, SHAVE BIOPSY: - Seborrheic keratosis, irritated and inflamed. 03/21/2023 10:35 [facility] Attestation By the signature below, the attending physician certifies that they have 1) personally conducted a gross and/or microscopic examination of the described specimen(s), and/or personally interpreted the results of laboratory testing of the described specimen(s), and 2) personally rendered or confirmed the above diagnosis. 03/21/2023 10:35 [facility] at [address] Microscopic Description Orthohyperkeratosis [...] vacuolar change and keratinocyte necrosis. 03/21/2023 10:35 [facility] Clinical History Fleshy plaque left anabaptism, growing SK vs squamous 03/21/2023 10:35 [facility] Gross Description A. Received in formalin labelled with proper patient identification (initials B, R) and left anabaptism is a 0.8 x 0.4 by less than 0.1 cm white-moran, mottled, focally papular skin shave which is inked blue, bisected and is submitted in its entirety in A1. FITO CADE(ASCP) 03/18/2023 15:12 03/21/2023 10:35 T [facility] Performing Lab [facility] 03/21/2023 10:35 [facility] Scanned Images 03/21/2023 10:35 [facility] Tissue TISSUE SPECIMEN FROM SKIN / Unknown 03/17/2023 10:00 EDT 03/18/2023 10:03 EDT Dom Kennedy MD PATHOLOGY ORDERABLES [facility] [address] [place] [address] documented in this encounter Visit Diagnoses Diagnosis Encounter for other general examination documented in this encounter Care Teams Electrical Software Engineer Relationship Specialty Start Date End Date Dom Kennedy [place] [address] PCP - General 12/14/18 documented as of this encounter
--- OUTSIDE RECORDS SUMMARY | 2024-05-19 06:21 | XMS_ITS | Encounter Summary ---
[place] [address] Care Team Providers Care Level Vial Sealer Name Role Phone Dom Kennedy MD Primary Care Provider [phone] Reason for Referral * Consultation (Routine) - Authorized Specialty Diagnoses / Procedures Referred By Portia stuart Referred To Contact Urology Diagnoses Benign prostatic hyperplasia with lower urinary tract symptoms, symptom details unspecified Kade Higuera PA [address] [place] [address] [facility] [place] [address] Referral ID Status Reason Start Date Expiration Date Visits Requested Visits Authorized [id number] Authorized Consult, Test & Treat PCP Updated and/or Approved 01/16/2024 01/15/2025 6 6 Encounter Details Date Type Department Care Team (Late st Contact Info) Description 01/16/2024 Transcribe Orders eDH Incoming Referrals [phone] Kade Higuera PA [address] [place] [address] Benign prostatic hyperplasia with lower [...] 1:00 PM EDT Office [place] [address] Luz Elena Fuentes APRN [facility] [place] [address] Scheduled Referrals Name Type Priority Associated Diagnoses Orde r Schedule Referral to Urology Outpatient Referral Routine Benign prostatic hyperplasia with lower urinary tract symptoms, symptom details unspecified Ordered: 01/16/2024 documented as of this encounter Visit Diagnoses Diagnosis Benign prostatic hyperplasia with lower urinary tract symptoms, symptom details unspecified documented in this encounter Care Teams Level Vial Sealer Relationship Specialty Start Date End Date Dom Kennedy MD PCP - General 12/28/16 documented as of this encounter
--- OUTSIDE RECORDS SUMMARY | 2024-05-19 06:21 | XMS_ITS | Clinical Summary ---
Author Organization [facility] Address [address] [place] [address] Care Team Providers Care Economic Development Director Name Role Phone Dom Kennedy MD Primary Care Provider Social History Tobacco Use Types Packs/Day [...] 60+ series) 2019 COVID-19 Vaccine (2022-24 season) 2024 Care Teams Economic Development Director Relationship Specialty Start Date End Date Dom Kennedy MD [facility] [place] [address] [place] [address] PCP - General 12/14/18
--- OUTSIDE RECORDS SUMMARY | 2024-05-19 06:21 | XMS_ITS | Encounter Summary ---
Author Organization [facility] Address [address] [place] [address] Care Team Providers Care Dairy Bacteriologist Name Role Phone Unknown, Provider Primary Care Provider [phone] Encounter Details Date Type Department Care Team (Late st Contact Info) Description 12/11/2018 Results Only [facility] [phone] Maria Guadalupe Kennedy MD [address] [place] [address] Social History Tobacco Use Types Packs/Day Years [...] ? OPAL JALLOH ? Accession #: ? [id number] ? : ? 1960 (Age: 57) ??M [...] (ASCP) 12/12/2018 4:02 PM End of Report [facility] 12/11/2018 15:4 1 EDT 12/12/2018 15:41 EDT Maria Guadalupe Kennedy MD PATHOLOGY ORDERABLES [facility] [address] [place] [address] documented in this encounter Visit Diagnoses Not on filedocumented in this encounter Care Teams Dairy Bacteriologist Relationship Specialty Start Date End Date Unknown, Provider, PCP - General 06/15/13 12/13/18 documented as of this encounter
--- OUTSIDE RECORDS SUMMARY | 2024-05-19 06:21 | XMS_ITS | Encounter Summary ---
Author Organization [facility] Address [facility] [place] [address] Care Team Providers Care Validation Engineer Name Role Phone Dom Kennedy MD Primary Care Provider [phone] Reason for Visit * Reason Comments Medication Refill Encounter Details Date Type Department Care Team (Late st Contact Info) Description 02/10/2022 [place] [address] Td Blanco MD [facility] [place] [address] Type 2 diabetes mellitus with hyperglycemia, with [...] documented in this encounter Plan of Treatment Upcoming Encounters Date Type Department Care Team (Late st Contact Info) Description 05/21/2024 1:00 PM EDT [place] [address] Luz Elena Fuentes APRN [facility] [place] [address] documented as of this encounter Visit Diagnoses Diagnosis Type 2 diabetes mellitus with hyperglycemia, with long-term current use of insulin documented in this encounter Care Teams Validation Engineer Relationship Specialty Start Date End Date Dom Kennedy MD PCP - General 12/28/16 documented as of this encounter
--- OUTSIDE RECORDS SUMMARY | 2024-05-19 06:21 | XMS_ITS | Encounter Summary ---
Author Organization [facility] Address [address] [place] [address] Care Team Providers Care Sewer Maintenance Supervisor Name Role Phone Unknown, Provider Primary Care Provider [phone] Encounter Details Date Type Department Care Team (Late st Contact Info) Description 06/15/2013 Results Only [facility] [phone] Destiny Caldwell, DO [address] [place] [address] Social History Tobacco Use Types [...] ? OPAL JALLOH ? Accession #: ? [id number] ? : ? 1960 (Age: 52) ??M [...] Caldwell DO PATHOLOGY ORDERABLES Performing Organization Address City/State/[facility] Co de Phone Number SARAH JOHNSON [address] [place] [address] documented in this encounter Visit Diagnoses Not on filedocumented in this encounter Care Teams Sewer Maintenance Supervisor Relationship Specialty Start Date End Date Unknown, Provider, PCP - General 06/15/13 12/13/18 documented as of this encounter
--- OUTSIDE RECORDS SUMMARY | 2024-05-19 06:21 | XMS_ITS | Encounter Summary ---
Author Organization [facility] [place] [address] Care Team Providers Care Disc Recordist Name Role Phone Dom Kennedy MD Primary Care Provider [phone] Reason for Visit * Reason Onset Date Comments Prior Authorization 01/30/2021 Encounter Details Date Type Department Care Team (Late st Contact Info) Description 01/30/2021 Telephone [place] [phone] Faiza Armijo Prior Authorization Social History Tobacco [...] II DM Health plan: SAM ([facility]) Authorizing representative personal service name: Nieves Sent to health plan on: 02/10/21 Health plan decision: Approved Quantity approved: Authorization number: [id number] Start date: 01/11/21 End date: 02/10/22 documented in this encounter Plan of Treatment Upcoming Encounters Date Type Department Care Team (Late st Contact Info) Description 05/21/2024 1:00 PM EDT Office [place] [address] Luz Elena Fuentes APRN [facility] [place] [address] documented as of this encounter Visit Diagnoses Not on filedocumented in this encounter Care Teams Disc Recordist Relationship Specialty Start Date End Date Dom Kennedy MD PCP - General 12/28/16 documented as of this encounter
--- OUTSIDE RECORDS SUMMARY | 2024-05-19 06:21 | XMS_ITS | Encounter Summary ---
Author Organization [facility] Address [address] [place] [address] Care Team Providers Care Event Marketing Assistant Name Role Phone Unknown, Provider Primary Care Provider Encounter Details Date Type Department Care Team (Latest Contact Info) Description 12/11/2018 14:55 EDT - 12/11/2018 23:59 EDT Hospital Encounter [address] [address] Unknown, Provider, Discharge Disposition: Home or Self Care Social History Tobacco Use Types Packs/Day Years Used Date Smoking Tobacco: Never Assessed Sex and Gender Information Value Date Recorded Sex Assigned at Not on file Gender Identity Not on file Sexual Orientation Not on file documented as of this encounter Discharge Disposition Disposition Code Departure Means Destination Home or Self [facility] documented in this encounter Plan of Treatment Not on file documented as of this encounter Visit Diagnoses Not on filedocumented in this encounter Care Teams Event Marketing Assistant Relationship Specialty Start Date End Date Unknown, Provider, PCP - General 06/15/13 12/13/18 documented as of this encounter
--- OUTSIDE RECORDS SUMMARY | 2024-05-19 06:21 | XMS_ITS | Encounter Summary ---
Author Organization [facility] Address [address] [place] [address] Care Team Providers Care Poultry Farm Manager Name Role Phone Dom Kennedy MD Primary Care Provider [phone] Encounter Details Date Type Department Care Team (Late st Contact Info) Description 01/14/2021 Lab Requisition [facility] Pathology & Laboratory Medicine - [address] [phone] Outr Resulting Lab, Provider Social History Tobacco [...] 0.0 - 4.5 ng/mL 01/14/2021 17:30 EDT [facility] Blood VENOUS BLOOD / Unknown 01/14/2021 9:01 EDT 01/14/2021 15:44 EDT Narrative [facility] - 01/14/2021 17:30 EDT NOTE: Serum PSA concentration should not be interpreted as absolute evidence for the presence or absence of malignant disease. Assayed on Siemens ADVIA Centaur XPT using chemiluminescent technology.??Values obtained by using different assay methods cannot be used interchangeably. Provider Outr Resulting Lab CHEMISTRY & BLOOD GAS ORDERABLES [facility] [address] [place] [address] documented in this encounter Visit Diagnoses Not on filedocumented in this encounter Care Teams Poultry Farm Manager Relationship Specialty Start Date End Date Dom Kennedy MD [facility] [place] [address] PCP - General 12/14/18 documented as of this encounter
--- OUTSIDE RECORDS SUMMARY | 2024-05-19 06:21 | XMS_ITS | Encounter Summary ---
Author Organization [facility] Address [address] [place] [address] Care Team Providers Care Taxonomist Name Role Phone Dom Kennedy MD Primary Care Provider [phone] Encounter Details Date Type Department Care Team (Late st Contact Info) Description 07/25/2023 Lab Requisition [facility] Pathology & Laboratory Medicine - [address] [address] Ramy Knapp MD [address] [place] [address], [address] [place] [address] Encounter for screening for malignant [...] management options, if applicable. 07/26/2023 16:08 EST [facility] Final Diagnosis A. SKIN BELOW KNEE, RIGHT, EXCISION: - Hemangioma. B. COLON POLYP, 75 CM, BIOPSY: - Tubular adenoma. See comment. 07/26/2023 16:08 [facility] Diagnosis Comment Specimen B been reviewed by Dr. Barba who concurs with the above diagnosis. 07/26/2023 16:08 [facility] Attestation By the signature below, the attending physician certifies that they have 1) personally conducted a gross and/or microscopic examination of the described specimen(s), and/or personally interpreted the results of laboratory testing of the described specimen(s), and 2) personally rendered or confirmed the above diagnosis. 07/26/2023 16:08 [facility] at 1607 Clinical History A. Bx lesion RT knee, vascular appearing skin lesion-pigmented; B. Colon polyp @ 75 cm, screening colonoscopy, polyp 07/26/2023 16:08 [facility] Gross Description A. Received [...] B1. FITO TEJEDA(ASCP) 07/26/2023 7:44 07/26/2023 16:08 [facility] Performing Lab [facility] 07/26/2023 16:08 [facility] Scanned Images 07/26/2023 16:08 [facility] Tissue COLON STRUCTURE / Unknown 07/25/2023 10:47 EST 07/25/2023 18:16 EST Tissue specimen (specimen) COLON STRUCTURE / Unknown 07/25/2023 10:47 EST 07/25/2023 18:16 EST Ramy Knapp MD PATHOLOGY ORDERABLES [facility] [address] [place] [address] documented in this encounter Visit Diagnoses Diagnosis Encounter for screening for malignant neoplasm of colon Special screening for malignant neoplasms, colon documented in this encounter Care Teams Taxonomist Relationship Specialty Start Date End Date Dom Kennedy MD [facility] [place] [address] PCP - General 12/14/18 documented as of this encounter
--- OUTSIDE RECORDS SUMMARY | 2024-05-19 06:21 | XMS_ITS | Encounter Summary ---
[place] [address] Care Team Providers Care Machine Operator Replanter Name Role Phone Dom Kennedy MD Primary Care Provider Reason for Referral * Consultation (Routine) - Authorized Specialty Diagnoses / Procedures Referred By Portia stuart Referred To Contact Urology Diagnoses Lower urinary tract symptoms (LUTS) Dom Kennedy MD [address] [place] [address] [place] [address] [facility] [place] [address] Referral ID Status Reason Start Date Expiration Date Visits Requested Visits Authorized [id number] Authorized Consult, Test & Treat PCP Updated and/or Approved 3 06/27/2024 6 6 Encounter Details Date Type Department Care Team (Late st Contact Info) Description 07/05/2023 Transcribe Orders eDH Incoming Referrals [phone] Dom Kennedy MD [address] [place] [address] [address] [place] [phone] Lower urinary tract symptoms (LUTS) Social History [...] 1:00 PM EDT [place] [address] Luz Elena Fuentes APRN [facility] [place] [address] Scheduled Referrals Name Type Priority Associated Diagnoses Orde r Schedule Referral to Urology Outpatient Referral Routine Lower urinary tract symptoms (LUTS) Ordered: 07/05/2023 documented as of this encounter Visit Diagnoses Diagnosis Lower urinary tract symptoms (LUTS) Other symptoms involving urinary system documented in this encounter Care Teams Machine Operator Replanter Relationship Specialty Start Date End Date Dom Kennedy MD PCP - General 12/28/16 documented as of this encounter
--- OUTSIDE RECORDS SUMMARY | 2024-05-19 06:21 | XMS_ITS | Encounter Summary ---
Author Organization [facility] Address [facility] [place] [address] Care Team Providers Care Mill Laborer Name Role Phone Dom Kennedy MD Primary Care Provider Reason for Visit * Consultation (Routine) - Closed Specialty Diagnoses / Procedures Referred By Contsue t Referred To Contact Endocrinology Diagnoses Type 2 diabetes mellitus without complications Essential (primary) hypertension Hyperlipidemia, unspecified Dom Kennedy MD [address] [place] [address] [place] [address] Td Blanco MD [facility] [place] [address] Referral ID Status Reason Start Date Expiration Date Visits Re quested Visits Authorized [id number] Closed 12/25/2020 12/25/2021 1 1 Encounter Details Date Type Department Care Team (Latest Contact Info) Description 01/29/2021 10:00 AM EDT TH Visit (TeleHealth) [place] [address] Td Blanco MD [facility] [place] [address] Type 2 diabetes mellitus with hyperglycemia, with [...] by Oksana Ambriz as part of the [facility] Diabetes Outreach program Pre-visit notes: Patient [...] and weight pattern for the past year: (Oksnaa insert GRAPH) Summary of diabetes labs and [...] treatment Last Eye Appointment: Aug 2020, 1x/year [facility]. Early signs of cataracts. 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 by knee [...] 3 x a year _x__ consultation with endocrinology/environmental compliance specialist- 1-2 times a year ___ consultation with critical care educator 2 times per year ___ consultation [...] 1:00 PM EDT [place] [address] Luz Elena Fuentes APRN [facility] [place] [address] documented as of this encounter Visit Diagnoses Diagnosis Type 2 diabetes mellitus with hyperglycemia, with long-term current use of insulin documented in this encounter Care Teams Mill Laborer Relationship Specialty Start Date End Date Dom Kennedy MD PCP - General 12/28/16 documented as of this encounter
--- OUTSIDE RECORDS SUMMARY | 2024-05-19 06:21 | XMS_ITS | Encounter Summary ---
Author Organization [facility] [place] [address] Care Team Providers Care Corporate Attorney Name Role Phone Dom Kennedy MD Primary Care Provider [phone] Reason for Visit * Reason Comments Medication Refill Encounter Details Date Type Department Care Team (Late st Contact Info) Description 12/20/2021 Refill [place] [phone] Td Blanco MD [facility] [place] [address] Type 2 diabetes mellitus with hyperglycemia, with [...] 1:00 PM EDT Office [place] [address] Luz Elena Fuentes APRN [facility] [place] [address] documented as of this encounter Visit Diagnoses Diagnosis Type 2 diabetes mellitus with hyperglycemia, with long-term current use of insulin documented in this encounter Care Teams Corporate Attorney Relationship Specialty Start Date End Date Dom Kennedy MD PCP - General 12/28/16 documented as of this encounter
--- OUTSIDE RECORDS SUMMARY | 2024-05-19 06:21 | XMS_ITS | Encounter Summary ---
Author Organization [facility] Address [facility] [address] Care Team Providers Care Boilermaker Pipe Fitter Name Role Phone Dom Kennedy MD Primary Care Provider [phone] Encounter Details Date Type Department Care Team (Late st Contact Info) Description 09/08/2020 11:20 AM EST Office Visit Urology at [facility] [place] [phone] Estrella Hickman MD [facility] [place] [address] Gross hematuria; Benign localized prostatic hyperplasia with [...] Referred him to Nadege Gaona NP at [place] [facility]. He had the following tests and [...] HEALTH: good REVIEW OF SYSTEMS: Negative. -- INSTRUCTOR PHYSICAL - No headaches or loss of consciousness [...] 1:00 PM EDT [place] [address] Luz Elena Fuentes APRN [facility] [place] [address] documented as of this encounter Visit Diagnoses Diagnosis Gross hematuria Benign localized prostatic hyperplasia with lower urinary tract symptoms (LUTS) Benign localized hyperplasia of prostate with urinary obstruction and other lower urinary tract symptoms (LUTS) documented in this encounter Care Teams Boilermaker Pipe Fitter Relationship Specialty Start Date End Date Dom Kennedy MD PCP - General 12/28/16 documented as of this encounter
--- OUTSIDE RECORDS SUMMARY | 2024-05-19 06:21 | XMS_ITS | Encounter Summary ---
Author Organization [facility] Address [address] [place] [address] Care Team Providers Care Snowboarder Name Role Phone Dom Kennedy MD Primary Care Provider [phone] Encounter Details Date Type Department Care Team (Late st Contact Info) Description 02/05/2022 Lab Requisition [facility] Pathology & Laboratory Medicine - [address] [phone] Outr Resulting Lab, Provider Social History Tobacco [...] PSA 1.6 <=4.5 ng/mL 02/05/2022 21:58 EDT [facility] Blood VENOUS BLOOD / Unknown 02/05/2022 8:48 EDT 02/05/2022 20:06 EDT Narrative [facility] - 02/05/2022 21:58 EDT NOTE: Serum PSA concentration should not be interpreted as absolute evidence for the presence or absence of malignant disease. Assayed on Siemens ADVIA Centaur XPT using chemiluminescent technology.??Values obtained by using different assay methods cannot be used interchangeably. Provider Outr Resulting Lab CHEMISTRY & BLOOD GAS ORDERABLES [facility] [address] [place] [address] documented in this encounter Visit Diagnoses Not on filedocumented in this encounter Care Teams Snowboarder Relationship Specialty Start Date End Date Dom Kennedy MD [address] [place], [place] [phone] PCP - General 12/14/18 documented as of this encounter
--- OUTSIDE RECORDS SUMMARY | 2024-05-19 06:21 | XMS_ITS | Encounter Summary ---
Author Organization [facility] [place] [address] Care Team Providers Care Electrolysis Needle Operator Name Role Phone Dom Kennedy MD Primary Care Provider [phone] Encounter Details Date Type Department Care Team (Late st Contact Info) Description 09/02/2020 [place] [phone] Ana Maria Medina LNA Social History Tobacco [...] 1:00 PM EDT [place] [phone] Luz Elena Fuentes APRN [facility] [place] [address] documented as of this encounter Visit Diagnoses Not on filedocumented in this encounter Care Teams Electrolysis Needle Operator Relationship Specialty Start Date End Date Dom Kennedy MD PCP - General 12/28/16 documented as of this encounter
--- OUTSIDE RECORDS SUMMARY | 2024-05-19 06:21 | XMS_ITS | Encounter Summary ---
Author Organization [facility] [place] [address] Care Team Providers Care Floor Covering Printer Assistant Name Role Phone Dom Kennedy MD Primary Care Provider [phone] Encounter Details Date Type Department Care Team (Late st Contact Info) Description 06/03/2020 [place] [phone] Estrella Hickman MD [facility] [place] [address] Social History Tobacco Use Types Packs/Day Years [...] 1:00 PM EDT Office [place] [address] Luz Elena Fuentes APRN [facility] [place] [address] documented as of this encounter Visit Diagnoses Not on filedocumented in this encounter Care Teams Floor Covering Printer Assistant Relationship Specialty Start Date End Date Dom Kennedy MD PCP - General 12/28/16 documented as of this encounter
--- OUTSIDE RECORDS SUMMARY | 2024-05-19 06:21 | XMS_ITS | Encounter Summary ---
Author Organization [facility] Address [address] [place] [address] Care Team Providers Care Office Services Manager Name Role Phone Unknown, Provider Primary Care Provider [phone] Encounter Details Date Type Department Care Team (Late st Contact Info) Description 07/08/2014 Results Only [facility]ISM [phone] Nasrin Ferguson, [address] [place] [address] Social History Tobacco Use Types Packs/Day Years [...] ? OPAL JALLOH ? Accession #: ? [id number] ? : ? 1960 (Age: 53) ??M ? Collect Date: ? 07/08/2014 ? Location: ? [facility] ? Receive Date: ? 07/09/2014 ? Provider: NASRIN FERGUSON DO Copy to: URIEL ROSENBERG MD ? Final Pathologic Diagnosis: A. ??SKIN OF EPISCOPAL, RIGHT, SHAVE BIOPSY:- Seborrheic keratosis. B. ??SKIN OF EPISCOPAL, LEFT INFERIOR, SHAVE BIOPSY: - Seborrheic keratosis. C. ??SKIN OF EPISCOPAL, LEFT SUPERIOR, SHAVE BIOPSY: - Seborrheic keratosis. Document reviewed and electronically signed by: BRANDY CAM MD Report ??Date: 07/10/2014 16:39 By the signature above, the attending physician certifies that he/she has personally conducted a gross and/or microscopic examination of the described specimens and rendered or confirmed the above diagnosis. Specimen(s) Received: A. ?Right confucianism B. ? Left confucianism (inferior) C. ? Left confucianism (superior) Clinical History: Hyperpigmented skin lesions; clinical diagnosis code: ??239.2 Gross Description: A. ?Received in formalin labelled with proper patient identification (initials B, R) and 1. right confucianism is a shave biopsy of an irregular moran granular friable nodule (1.1 x 0.9 x 0.2 cm). ??Trisected and submitted in A1. B. ?Received in formalin labelled with proper patient identification (initials B, R) and 2. left confucianism inferior is a shave biopsy of an irregular moran-cui granular papule (0.5 x 0.4 x 0.1 cm). Bisected and submitted in B1. C. ?Received in formalin labelled with proper patient identification (initials B, R) and 3. left confucianism superior is a shave biopsy of moran-white [...] Pecktte 07/10/2014 08:28 AM End of Report [facility] 07/08/2014 17:3 3 EST 07/09/2014 17:33 EST Nasrin Ferguson DO PATHOLOGY ORDER [facility] [address] [place] [address] documented in this encounter Visit Diagnoses Not on filedocumented in this encounter Care Teams Office Services Manager Relationship Specialty Start Date End Date Unknown, Provider, PCP - General 06/15/13 12/13/18 documented as of this encounter
--- OUTSIDE RECORDS SUMMARY | 2024-05-19 06:22 | XMS_ITS | Encounter Summary ---
Author Organization [facility] Address [facility] [place] [address] Care Team Providers Care Dry Mill Worker Name Role Phone Keo Orozco APRN Primary Care Provider Encounter Details Date Type Department Care Team (Late st Contact Info) Description 02/19/2011 9:45 AM EDT Office Visit [address] [address] Keo Orozco APRN [address] [place] [address] Social History Tobacco Use Types Packs/Day Years [...] 1:00 PM EDT Office Visit Urology at [facility] [place] [address] Luz Elena Fuentes APRN [facility] [place] [address] documented as of this encounter Visit Diagnoses Not on filedocumented in this encounter Care Teams Dry Mill Worker Relationship Specialty Start Date End Date Keo Orozco APRN [address] [place] [address] PCP - General 09/30/10 09/29/11 documented as of this encounter
--- OUTSIDE RECORDS SUMMARY | 2024-05-19 06:22 | XMS_ITS | Encounter Summary ---
Author Organization [facility] [place] [address] Care Team Providers Care Magnetic Tape Winder Name Role Phone Keo Orozco APRN Primary Care Provider Encounter Details Date Type Department Care Team (Late st Contact Info) Description 12/03/2010 9:00 AM EDT Office Visit [facility] [address] [place] [address] Lorene Luna, RD [address] [place] [address] Social History Tobacco Use Types Packs/Day Years [...] 1:00 PM EDT Office [place] [address] Luz Elena Fuentes APRN [facility] [place] [address] documented as of this encounter Visit Diagnoses Not on filedocumented in this encounter Care Teams Magnetic Tape Winder Relationship Specialty Start Date End Date Keo Orozco APRN [address] [place] [address] PCP - General 09/30/10 09/29/11 documented as of this encounter
--- OUTSIDE RECORDS SUMMARY | 2024-05-19 06:22 | XMS_ITS | Encounter Summary ---
Author Organization [facility] [place] [address] Care Team Providers Care Drafter Electromechanical Name Role Phone Keo Orozco APRN Primary Care Provider [phone] Encounter Details Date Type Department Care Team (Late st Contact Info) Description 02/19/2011 3:00 PM EDT Procedure visit [address] [phone] Radiology, [place] Social History Tobacco Use Types Packs/Day Years [...] 1:00 PM EDT [place] [address] Luz Elena Fuentes APRN [facility] [place] [address] documented as of this encounter Visit Diagnoses Not on filedocumented in this encounter Care Teams Drafter Electromechanical Relationship Specialty Start Date End Date Keo Orozco APRN [address] [place] [address] PCP - General 09/30/10 09/29/11 documented as of this encounter
--- OUTSIDE RECORDS SUMMARY | 2024-05-19 06:22 | XMS_ITS | Encounter Summary ---
Author Organization [facility] [place] [address] Care Team Providers Care Take Away Worker Name Role Phone Keo Orozco APRN Primary Care Provider Encounter Details Date Type Department Care Team (Late st Contact Info) Description 12/21/2010 9:00 AM EDT Follow-Up [facility] [address] [place] [phone] Ramirez Ahuja MD [address] [place] [address] Social History Tobacco Use Types Packs/Day Years [...] 1:00 PM EDT Office [place] [address] Luz Elena Fuentes APRN [facility] [place] [address] documented as of this encounter Visit Diagnoses Not on filedocumented in this encounter Care Teams Take Away Worker Relationship Specialty Start Date End Date Keo Orozco APRN [address] [place] [address] PCP - General 09/30/10 09/29/11 documented as of this encounter
--- OUTSIDE RECORDS SUMMARY | 2024-05-19 06:22 | XMS_ITS | Encounter Summary ---
Author Organization [facility] [place] [address] Care Team Providers Care Adaptive Physical Educator Name Role Phone Dom Kennedy MD Primary Care Provider [phone] Encounter Details Date Type Department Care Team (Late st Contact Info) Description 01/04/2012 Abstract [facility] Information Services [address] [place] [phone] Provider, His [place] MD Social History Tobacco [...] 1:00 PM EDT Office Visit Urology at [facility] [place] [place] [address] Luz Elena Fuentes APRN [facility] [place] [address] documented as of this encounter Procedures Procedure Name Priority Date/Time Associated Diagnosis Comments PSA (ULTRASENSITIVE) Routine 01/04/2012 3:00 PM EDT documented in this encounter Results * (ABNORMAL) PSA (01/04/2012 3:00 PM EDT) PSA Screen 0.80(Exter nal Lab) 0.00 - 4.0 ng/ml [facility] RESULT CONVERSION Comment: Sourced from Connor Gottlieb Conversion 01/04/2012 3:00 PM EDT His [place] Provider CHEMISTRY ORDERABL ES Performing Organization Address City/State/ZIP Co va Phone Number [facility] RESULT CONVERSION documented in this encounter Visit Diagnoses Not on filedocumented in this encounter Care Teams Adaptive Physical Educator Relationship Specialty Start Date End Date Dom Kennedy MD PCP - General 12/28/16 documented as of this encounter
--- OUTSIDE RECORDS SUMMARY | 2024-05-19 06:22 | XMS_ITS | Encounter Summary ---
Author Organization [facility] [place] [address] Care Team Providers Care Svp Research And Strategic Analysis Name Role Phone Keo Orozco APRN Primary Care Provider Encounter Details Date Type Department Care Team (Late st Contact Info) Description 06/21/2011 11:15 AM EST Laboratory Appointment [address] [address] Social History Tobacco Use Types [...] 1:00 PM EDT [place] [address] Luz Elena Fuentes APRN [facility] [place] [address] documented as of this encounter Visit Diagnoses Not on filedocumented in this encounter Care Teams Svp Research And Strategic Analysis Relationship Specialty Start Date End Date Keo Orozco APRN [address] [place] [address] PCP - General 09/30/10 09/29/11 documented as of this encounter
--- OUTSIDE RECORDS SUMMARY | 2024-05-19 06:22 | XMS_ITS | Encounter Summary ---
Author Organization [facility] Address [facility] [place] [address] Care Team Providers Care Straight Ruling Machine Operator Name Role Phone Keo Orozco APRN Primary Care Provider Encounter Details Date Type Department Care Team (Late st Contact Info) Description 06/21/2011 1:00 PM EST Follow-Up [address] [phone] Janie Saravia PA [address] [place] [address] Social History Tobacco Use Types Packs/Day Years [...] 1:00 PM EDT Office Visit Urology at [facility] [place] [address] Luz Elena Fuentes APRN [facility] [place] [address] documented as of this encounter Visit Diagnoses Not on filedocumented in this encounter Care Teams Straight Ruling Machine Operator Relationship Specialty Start Date End Date Keo Orozco APRN [address] [place] [address] PCP - General 09/30/10 09/29/11 documented as of this encounter
--- OUTSIDE RECORDS SUMMARY | 2024-05-19 06:22 | XMS_ITS | Encounter Summary ---
Author Organization [facility] [place] [address] Care Team Providers Care Emergency Services Director Name Role Phone Dom Kennedy MD Primary Care Provider [phone] Encounter Details Date Type Department Care Team (Late st Contact Info) Description 12/05/2015 Abstract [facility] Information Services [address] [facility] [place] [phone] Provider, His [place] Social History Tobacco [...] 132/90 12/05/2015 10:00 AM EDT Sourced from [place] Conversion Pulse 72 12/05/2015 10:00 AM EDT [...] PM EDT Office [place] [address] Luz Elena Fuentes APRN [facility] [place] [address] documented as of this encounter Visit Diagnoses Not on filedocumented in this encounter Care Teams Emergency Services Director Relationship Specialty Start Date End Date Dom Kennedy MD PCP - General 12/28/16 documented as of this encounter
--- OUTSIDE RECORDS SUMMARY | 2024-05-19 06:22 | XMS_ITS | Encounter Summary ---
Author Organization [facility] [place] [address] Care Team Providers Care Veterinary Laboratory Diagnostician Name Role Phone Dom Kennedy MD Primary Care Provider [phone] Encounter Details Date Type Department Care Team (Late st Contact Info) Description 02/19/2011 [place] [address] Keo Orozco, IMAGE CONSULTANT [address] [place] [address] Social History Tobacco Use Types Packs/Day Years [...] 1:00 PM EDT [place] [address] Luz Elena Fuentes, [facility] [place] [address] documented as of this encounter Procedures Procedure Name Priority Date/Time Associated Diagnosis Comments XR KNEE AP LAT AXIAL PATELLA BILAT Routine 02/19/2011 3:39 PM EDT documented in this encounter Results * XR Knee 3 Views Bilat (02/19/2011 3:39 PM EDT) Anatomical Region Laterality Modality Knee Bilateral Radiographic Day ging 02/19/2011 3:39 PM EDT Narrative 02/22/2011 9:59 PM EDT External Results Connor Hunterene Final Report EXAMINATION: ??DHK 8600 - KNEE (BILATERAL,3VWS) ?[id number] DIAGNOSIS: ?DHK X-RAY JOINT PAIN-LOWER LEG REASON: [...] External Results Connor Gottlieb Final Report EXAMINATION: K 8600 - KNEE (BILATERAL,3VWS) [id number] DIAGNOSIS: K X-RAY JOINT PAIN-LOWER LEG REASON: [...] on filedocumented in this encounter Care Teams Veterinary Laboratory Diagnostician Relationship Specialty Start Date End Date Dom Kennedy MD PCP - General 12/28/16 documented as of this encounter
--- OUTSIDE RECORDS SUMMARY | 2024-05-19 06:22 | XMS_ITS | Encounter Summary ---
Author Organization [facility] Address [facility] [place] [address] Care Team Providers Care Hospital Chief Executive Officer Name Role Phone Michael Mims MD Primary Care Provider [phone] Encounter Details Date Type Department Care Team (Late st Contact Info) Description 12/15/2011 9:00 AM EDT Follow-Up [facility] [address] [place] [phone] Ramirez Ahuja MD [address] [place] [address] Social History Tobacco Use Types Packs/Day Years [...] 1:00 PM EDT Office [place] [address] Luz Elena Fuentes APRN [facility] [place] [address] documented as of this encounter Visit Diagnoses Not on filedocumented in this encounter Care Teams Hospital Chief Executive Officer Relationship Specialty Start Date End Date Michael Mims MD [address] [address] PCP - General 10/11/11 03/21/14 documented as of this encounter
--- OUTSIDE RECORDS SUMMARY | 2024-05-19 06:22 | XMS_ITS | Encounter Summary ---
Author Organization [facility] Address [facility] [place] [address] Care Team Providers Care Senior Case Manager Name Role Phone Michael Mims MD Primary Care Provider [phone] Encounter Details Date Type Department Care Team (Late st Contact Info) Description 01/12/2012 11:00 AM EDT Office Visit [facility] [address] [place] [phone] David Holliday, PhD [address] [place] [address] Social History Tobacco Use Types Packs/Day Years [...] 1:00 PM EDT [place] [address] Luz Elena Fuentes APRN [facility] [place] [address] documented as of this encounter Visit Diagnoses Not on filedocumented in this encounter Care Teams Senior Case Manager Relationship Specialty Start Date End Date Michael Mims MD [address] [place] [address] PCP - General 10/11/11 03/21/14 documented as of this encounter
--- OUTSIDE RECORDS SUMMARY | 2024-05-19 06:22 | XMS_ITS | Encounter Summary ---
Author Organization [facility] Address [facility] [place] [address] Care Team Providers Care Senior Gamemaster Name Role Phone Ralph Ellison MD Primary Care Provider [phone] Reason for Referral * Diagnostic Test (Routine) - Closed Specialty Diagnoses / Procedures Referred By Contac t Referred To Contact Diagnoses Chest discomfort SOB (shortness of breath) Atypical chest pain Procedures Echocardiogram Stress (Treadmill) Adolfo Antonio MD [facility] [place] [address] [facility] [place] [address] Referral ID Status Reason Start Date Expiration Date V isits Requested Visits Authorized [id number] Closed Specialty Service Requested 09/26/2015 11/25/2015 1 1 Reason for Visit * Diagnostic Test (Routine) - Closed Specialty Diagnoses / Procedures Referred By Contac t Referred To Contact Diagnoses Chest discomfort SOB (shortness of breath) Atypical chest pain Procedures Echocardiogram Stress (Treadmill) Adolfo Antonio MD [facility] [place] [address] [facility] [place] [address] Referral ID Status Reason Start Date Expiration Date V isits Requested Visits Authorized [id number] Closed Specialty Service Requested 09/26/2015 11/25/2015 1 1 Encounter Details Date Type Department Care Team (Latest Contact Info) Description 10/30/2015 9:00 AM EDT - 10/30/2015 11:59 PM EDT Hospital Encounter [place] [address] Adolfo Antonio MD [facility] [place] [address] Chest discomfort; SOB (shortness of breath); Atypical [...] 1:00 PM EDT [place] [address] Luz Elena Fuentes APRN [facility] [address] documented as of this encounter Procedures Procedure [...] JOSEPH ? (Age): 1960(54y) Med Rec#: ? [id number] ?Sex: ?M ? Site Loc: ? [facility] ?Ht / Wt: ??177(cm)/95.01(k Pt. Loc: ?Echo Lab ?BSA: ?2.12 Study Date: ?? 10/30/2015 ?Pt. Type: Tape: ? Referring: ADOLFO ANTONIO Referring: Adolfo Antonio Reading: Nirmal Arroyo ([id number]) Engine Cowling Installer: Grady Orosco Office Sweeper: Milagros Duke Interpreting Fellow: Gregor Schwarz ??([id number]) Interpreting Fellow: Madan Hu ([id number]) Interpreting Fellow: Albino Rice ([id number]) Diagnosis: *ICD-10-PCS Shortness of breath (R06.02) *ICD-10-PCS Other chest pain (R07.89) CPT Codes: *Stress Echo (97851) *Color Doppler (04355) *Doppler LTD (99036) *ECG Interpretation (06524) *Definity (65251LV) Stage ? BP ?HR ? Rest ?166/80 [...] E-wave Vmax ?0.5 ?m/sec ? MV deceleration [id number] ?msec ? MV A-wave Vmax ?0.6 ?m/sec [...] ?Normal ?Normal ? Mid-Inferoseptal ?Normal ?Normal ? [place]-Septal ? Normal ?Normal ? [place]-Anterior ? Normal ?Normal ? [place]-Lateral ?Normal ?Normal ? [place]-Inferior ? Normal ?Normal ? [place]-Tip ?Normal ?Normal ? This report has been electronically signed by: Nirmal Arroyo M.D. ? 10/30/2015 12:53:17 Images reviewed and interpretation verified [facility] Cardiac Ultrasound Laboratory Procedure Note Nirmal Arroyo MD - 10/30/2015 Procedure: Stress Echocardiogram Patient: CHIARA TORRES(Age): 1960(54y) Med Rec#: [id number] Sex: M Site Loc: [facility] Ht / Wt: 177(cm)/95.01(k Pt. Loc: Echo Lab BSA: 2.12 Study Date: 10/30/2015 Pt. Type: Tape: Referring: ADOLFO ANTONIO Referring: Adolfo Antonio Reading: Nirmal Arroyo ([id number]) Engine Cowling Installer: Grady Orosco Office Sweeper: Milagros Duke Interpreting Fellow: Gregor Schwarz ([id number]) Interpreting Fellow: Madan Hu ([id number]) Interpreting Fellow: Albino Rice ([id number]) Diagnosis: *ICD-10-PCS Shortness of breath (R06.02) *ICD-10-PCS Other chest pain (R07.89) CPT Codes: *Stress Echo (99565) *Color Doppler (05357) *Doppler LTD (53144) *ECG Interpretation (73572) *Definity (56668YU) Stage BP HR Rest 166/80 86 Peak [...] MV E-wave Vmax 0.5 m/sec MV deceleration [id number] msec MV A-wave Vmax 0.6 m/sec MV [...] Normal Mid-Inferior Normal Normal Mid-Inferoseptal Normal Normal [place]-Septal Normal Normal [place]-Anterior Normal Normal [place]-Lateral Normal Normal [place]-Inferior Normal Normal [place]-Tip Normal Normal This report has been electronically signed by: Nirmal Arroyo M.D. 10/30/2015 12:53:17 Images reviewed and interpretation verified [facility] Cardiac Ultrasound Laboratory Adolfo Antonio MD ECHO [...] mLs documented in this encounter Care Teams Senior Gamemaster Relationship Specialty Start Date End Date Ralph Ellison MD [facility] [address] [facility] [place] [address] PCP - General General Internal Medicine 09/05/1512/13 documented as of this encounter
--- OUTSIDE RECORDS SUMMARY | 2024-05-19 06:22 | XMS_ITS | Encounter Summary ---
Author Organization [facility] [place] [address] Care Team Providers Care Wire Drawing Setter Name Role Phone Michael Mims MD Primary Care Provider [phone] Encounter Details Date Type Department Care Team (Late st Contact Info) Description 01/04/2012 12:00 PM EDT Laboratory Appointment [address] [phone] Social History Tobacco Use Types Packs/Day Years [...] 1:00 PM EDT Office [place] [address] Luz Elena Fuentes APRN [facility] [place] [address] documented as of this encounter Visit Diagnoses Not on filedocumented in this encounter Care Teams Wire Drawing Setter Relationship Specialty Start Date End Date Michael Mims MD [address] [place] [address] PCP - General 10/11/11 03/21/14 documented as of this encounter
--- OUTSIDE RECORDS SUMMARY | 2024-05-19 06:22 | XMS_ITS | Encounter Summary ---
Author Organization [facility] [place] [address] Care Team Providers Care Customer Engagement Specialist Name Role Phone Dom Kennedy MD Primary Care Provider [phone] Encounter Details Date Type Department Care Team (Late st Contact Info) Description 01/04/2012 Abstract [facility] Information Services [address] [place] [phone] Provider, His [place] MD Social History Tobacco [...] 1:00 PM EDT Office Visit Urology at [facility] [place] [address] Luz Elena Fuentes APRN [facility] [place] [address] documented as of this encounter Procedures Procedure Name Priority Date/Time Associated Diagnosis Comments U ALBUMIN/CRE RATIO Routine 01/04/2012 2 :53 PM EDT documented in this encounter Results * (ABNORMAL) U Albumin/Cre Ratio (01/04/2012 2:53 PM EDT) Albumin / Creatinin Ratio, Urine 42.9(EXTE RNAL/ABN) <30 milligrams per gram [facility] RESULT CONVERSION Comment: Sourced from Yolande Gottlieb Conversion 01/04/2012 2:53 PM EDT His [place] Provider URINE ORDERABLES Performing Organization Address City/State/[facility] Co wa Phone Number [facility] RESULT CONVERSION documented in this encounter Visit Diagnoses Not on filedocumented in this encounter Care Teams Customer Engagement Specialist Relationship Specialty Start Date End Date Dom Kennedy MD PCP - General 12/28/16 documented as of this encounter
--- OUTSIDE RECORDS SUMMARY | 2024-05-19 06:22 | XMS_ITS | Encounter Summary ---
Author Organization [facility] [place] [address] Care Team Providers Care Stove Bottom Worker Name Role Phone Keo Orozco APRN Primary Care Provider Encounter Details Date Type Department Care Team (Late st Contact Info) Description 12/30/2010 4:00 PM EDT Office Visit [facility] [address] [place] [address] Lorene Luna, RD [address] [place] [address] Social History Tobacco Use Types Packs/Day Years [...] 1:00 PM EDT Office [place] [address] Luz Elena Fuentes APRN [facility] [place] [address] documented as of this encounter Visit Diagnoses Not on filedocumented in this encounter Care Teams Stove Bottom Worker Relationship Specialty Start Date End Date Keo Orozco APRN [address] [place] [address] PCP - General 09/30/10 09/29/11 documented as of this encounter
--- OUTSIDE RECORDS SUMMARY | 2024-05-19 06:22 | XMS_ITS | Encounter Summary ---
Author Organization [facility] [place] [address] Care Team Providers Care Real Estate Analyst Name Role Phone Dom Kennedy MD Primary Care Provider [phone] Encounter Details Date Type Department Care Team (Late st Contact Info) Description 12/10/2011 Abstract [facility] Information Services [address] [place] [phone] Provider, His [place] MD Social History Tobacco [...] 1:00 PM EDT Office Visit Urology at [facility] [place] [address] Luz Elena Fuentes APRN [facility] [place] [address] documented as of this encounter Procedures Procedure [...] ORDERABL ES Performing Organization Address City/State/ZIP Co ma Phone Number [facility] RESULT CONVERSION documented in this encounter Visit Diagnoses Not on filedocumented in this encounter Care Teams Real Estate Analyst Relationship Specialty Start Date End Date Dom Kennedy MD PCP - General 12/28/16 documented as of this encounter
--- OUTSIDE RECORDS SUMMARY | 2024-05-19 06:22 | XMS_ITS | Encounter Summary ---
Author Organization [facility] [place] [address] Care Team Providers Care Financial Planning Advisor Name Role Phone Dom Kennedy MD Primary Care Provider [phone] Encounter Details Date Type Department Care Team (Late st Contact Info) Description 11/10/2012 [facility] Information Services [address] [place] [phone] Provider, His MD [place] Social History Tobacco [...] oz) 11/10/2012 10:45 AM EDT Sourced from [place] Conversion Height 175.3 cm (5' 9) 11/10/2012 10:4 5 AM EDT Sourced from [place] Conversion Body Mass Index 32.07 11/10/2012 10:45 AM EDT documented in this encounter Plan of Treatment Upcoming Encounters Date Type Department Care Team (Late st Contact Info) Description 05/21/2024 1:00 PM EDT [place] [address] Luz Elena Fuentes APRN [facility] [place] [address] documented as of this encounter Visit Diagnoses Not on filedocumented in this encounter Care Teams Financial Planning Advisor Relationship Specialty Start Date End Date Dom Kennedy MD PCP - General 12/28/16 documented as of this encounter
--- OUTSIDE RECORDS SUMMARY | 2024-05-19 06:22 | XMS_ITS | Encounter Summary ---
Author Organization [facility] Address [facility] [place] [address] Care Team Providers Care Water Resource Agent Name Role Phone Keo Orozco APRN Primary Care Provider Encounter Details Date Type Department Care Team (Late st Contact Info) Description 11/12/2010 9:15 AM EDT Office Visit [facility] [address] [place] [phone] Ramirez Ahuja MD [address] [place] [address] Social History Tobacco Use Types Packs/Day Years [...] 1:00 PM EDT Office Visit Urology at [place] [address] Luz Elena Fuentes APRN [facility] [place] [address] documented as of this encounter Visit Diagnoses Not on filedocumented in this encounter Care Teams Water Resource Agent Relationship Specialty Start Date End Date Keo Orozco APRN [address] [place] [address] PCP - General 09/30/10 09/29/11 documented as of this encounter
--- OUTSIDE RECORDS SUMMARY | 2024-05-19 06:22 | XMS_ITS | Encounter Summary ---
Author Organization [facility] [place] [address] Care Team Providers Care Industrial Property Appraiser Name Role Phone Keo Orozco APRN Primary Care Provider Encounter Details Date Type Department Care Team (Late st Contact Info) Description 02/19/2011 11:00 AM EDT Office Visit [address] [phone] Social History Tobacco Use Types Packs/Day Years [...] 1:00 PM EDT [place] [address] Luz Elena Fuentes APRN [facility] [place] [address] documented as of this encounter Visit Diagnoses Not on filedocumented in this encounter Care Teams Industrial Property Appraiser Relationship Specialty Start Date End Date Keo Orozco APRN [address] [place] [address] PCP - General 09/30/10 09/29/11 documented as of this encounter
--- OUTSIDE RECORDS SUMMARY | 2024-05-19 06:22 | XMS_ITS | Encounter Summary ---
Author Organization [facility] [place] [address] Care Team Providers Care Dental Amalgam Processor Name Role Phone Keo Orozco APRN Primary Care Provider Encounter Details Date Type Department Care Team (Late st Contact Info) Description 03/08/2011 3:00 PM EDT Office Visit [facility] [address] [place] [phone] Lawson Mixon III, MD [address] [place] [address] Social History Tobacco Use Types Packs/Day Years [...] 1:00 PM EDT [place] [address] Luz Elena Fuentes APRN [facility] [place] [address] documented as of this encounter Visit Diagnoses Not on filedocumented in this encounter Care Teams Dental Amalgam Processor Relationship Specialty Start Date End Date Keo Orozco APRN [address] [place] [address] PCP - General 09/30/10 09/29/11 documented as of this encounter
--- OUTSIDE RECORDS SUMMARY | 2024-05-19 06:22 | XMS_ITS | Encounter Summary ---
Author Organization [facility] Address [facility] [place] [address] Care Team Providers Care Store Sales Consultant Name Role Phone Michael Mims MD Primary Care Provider [phone] Encounter Details Date Type Department Care Team (Late st Contact Info) Description 03/16/2012 11:00 AM EDT Office Visit [facility] [address] [place] [phone] David Holliday, PhD [address] [place] [address] Social History Tobacco Use Types Packs/Day Years [...] 1:00 PM EDT [place] [address] Luz Elena Fuentes APRN [facility] [place] [address] documented as of this encounter Visit Diagnoses Not on filedocumented in this encounter Care Teams Store Sales Consultant Relationship Specialty Start Date End Date Michael Mims MD [address] [place] [address] PCP - General 10/11/11 03/21/14 documented as of this encounter
--- OUTSIDE RECORDS SUMMARY | 2024-05-19 06:22 | XMS_ITS | Encounter Summary ---
Author Organization [facility] Address [facility] [place] [address] Care Team Providers Care Fish Fryer Name Role Phone Michael Mims MD Primary Care Provider [phone] Encounter Details Date Type Department Care Team (Late st Contact Info) Description 11/10/2012 10:45 AM EDT Follow-Up [facility] [address] [place] [phone] Ramirez Ahuja MD [address] [place] [address] Social History Tobacco Use Types Packs/Day Years [...] Office [place] [address] Luz Elena Fuentes APRN [facility] [place] [address] documented as of this encounter Visit Diagnoses Not on filedocumented in this encounter Care Teams Fish Fryer Relationship Specialty Start Date End Date Michael Mims MD [address] [address] PCP - General 10/11/11 03/21/14 documented as of this encounter
--- OUTSIDE RECORDS SUMMARY | 2024-05-19 06:22 | XMS_ITS | Encounter Summary ---
Author Organization [facility] [place] [address] Care Team Providers Care Osteopathy Doctor Name Role Phone Ralph Ellison MD Primary Care Provider [phone] Reason for Referral * Diagnostic Test (Routine) - Closed Specialty Diagnoses / Procedures Referred By Contac t Referred To Contact Diagnoses Chest discomfort SOB (shortness of breath) Atypical chest pain Procedures Echocardiogram Stress (Treadmill) Adolfo Alejo MD [facility] [place] [address] [facility] [place] [address] Referral ID Status Reason Start Date Expiration Date V isits Requested Visits Authorized [id number] Closed Specialty Service Requested 09/26/2015 11/25/2015 1 1 Reason for Visit * Reason Comments Chest Pain * Consultation (SHERMAN) - Closed Specialty Diagnoses / Procedures Referred By Contac t Referred To Contact Cardiology Diagnoses positive cardiac stress test risk factors diabetes, hypertension and hyperlipidemia Ralph Ellison MD [facility] [address] [place] [address] [facility] Card[facility] [address] [place] [phone] Referral ID Status Reason Start Date Expiration Date V isits Requested Visits Authorized [id number] Closed Consult, Test & Treat Connection Center 09/05/2015 09/04/2016 1 1 Encounter Details Date Type Department Care Team (Late st Contact Info) Description 09/11/2015 11:00 AM EST Office Visit Cardiology at [address] [place] [address] Adolfo Alejo MD [facility] [place] [address] Chest discomfort; SOB (shortness of breath); Atypical [...] from the original note were not included. [facility] ANTHONY Bui [id number] CARDIOLOGY OUTPATIENT CONSULTATION [facility] [place] Jefry Guadarrama [id number] 09/11/2015 REFERRING PROVIDER: Ralph Ellison CHIEF COMPLAINT: Chief Complaint Patient presents with ??? Chest Pain PROBLEM LIST Patient Active Problem List Diagnosis ??? Atypical chest pain ?? Nuclear stress test [facility] in 2015 reportedly negative ?? Treadmill stress test [facility] August 21, [address] depression [...] he had a nuclear stress test at [facility] which was reportedly negative. His symptoms have [...] He is and lives with his in [place], [place]. 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 He has never smoked. He drinks a [...] via any of the following mechanisms: Email: [email or web address] documented in this encounter Miscellaneous Notes * Addendum Note - Arlyn Copeland - 09/11/2015 12:24 PM ESTAddended by: ARLYN COPELAND on: 09/11/2015 12:24 PM Modules accepted: Orders documented in this encounter Plan of Treatment Upcoming Encounters Date Type Department Care Team (Late st Contact Info) Description 05/21/2024 1:00 PM EDT Office Visit Urology at [facility] [place] [address] Luz Elena Fuentes APRN [facility] [place] [address] documented as of this encounter Procedures Procedure [...] JOSEPH ? (Age): 1960(54y) Med Rec#: ? [id number] ?Sex: ?M ? Site Loc: ? [facility] ?Ht / Wt: ??177(cm)/95.01(k Pt. Loc: ?Echo Lab ?BSA: ?2.12 Study Date: ?? 10/30/2015 ?Pt. Type: Tape: ? Referring: ADOLFO ALEJO Referring: Adolfo Alejo Reading: Nirmal Arroyo ([id number]) Back Shoe Cutter: Grady Orosco Ict Analyst: Milagros Duke Interpreting Fellow: Gregor Schwarz ??([id number]) Interpreting Fellow: Madan Hu ([id number]) Interpreting Fellow: Albino Rice ([id number]) Diagnosis: *ICD-10-PCS Shortness of breath (R06.02) *ICD-10-PCS Other chest pain (R07.89) CPT Codes: *Stress Echo (21515) *Color Doppler (69631) *Doppler LTD (27681) *ECG Interpretation (76396) *Definity (21900VH) Stage ? BP ?HR ? Rest ?166/80 [...] E-wave Vmax ?0.5 ?m/sec ? MV deceleration [id number] ?msec ? MV A-wave Vmax ?0.6 ?m/sec [...] ?Normal ?Normal ? Mid-Inferoseptal ?Normal ?Normal ? [place]-Septal ? Normal ?Normal ? [place]-Anterior ? Normal ?Normal ? [place]-Lateral ?Normal ?Normal ? [place]-Inferior ? Normal ?Normal ? [place]-Tip ?Normal ?Normal ? This report has been electronically signed by: Nirmal Arroyo M.D. ? 10/30/2015 12:53:17 Images reviewed and interpretation verified [facility] Cardiac Ultrasound Laboratory Procedure Note Nirmal Arroyo MD - 10/30/2015 Procedure: Stress Echocardiogram Patient: CHIARA TORRES(Age): 1960(54y) Med Rec#: [id number] Sex: M Site Loc: [facility] Ht / Wt: 177(cm)/95.01(k Pt. Loc: Echo Lab BSA: 2.12 Study Date: 10/30/2015 Pt. Type: Tape: Referring: ADOLFO ALEJO Referring: Adolfo Alejo Reading: Nirmal Arroyo ([id number]) Back Shoe Cutter: Grady Orosco Ict Analyst: Milagros Duke Interpreting Fellow: Gregor Schwarz ([id number]) Interpreting Fellow: Madan Hu ([id number]) Interpreting Fellow: Albino Rice ([id number]) Diagnosis: *ICD-10-PCS Shortness of breath (R06.02) *ICD-10-PCS Other chest pain (R07.89) CPT Codes: *Stress Echo (62217) *Color Doppler (55105) *Doppler LTD (21100) *ECG Interpretation (83240) *Definity (41748IW) Stage BP HR Rest 166/80 86 Peak [...] MV E-wave Vmax 0.5 m/sec MV deceleration [id number] msec MV A-wave Vmax 0.6 m/sec MV [...] Normal Mid-Inferior Normal Normal Mid-Inferoseptal Normal Normal [place]-Septal Normal Normal [place]-Anterior Normal Normal [place]-Lateral Normal Normal [place]-Inferior Normal Normal [place]-Tip Normal Normal This report has been electronically signed by: Nirmal Arroyo M.D. 10/30/2015 12:53:17 Images reviewed and interpretation verified [facility]iac [facility]ound [facility] Adolfo Alejo MD ECHO ORDERABLES * Troponin T (09/11/2015 12:30 PM EST) [facility] Troponin-T <0.03 <=0.03 ng/mL MIRNA ROSAS Comment: 0.03 ng/mL: Represents the 99th percentile upper reference limit for normals. >0.03 ng/mL: Elevated cardiac troponin T level indicative of myocardial damage. Diagnosis of acute, evolving or recent SC requires a typical rise and gradual fall [...] consensus document of the Joint Society of Cardiology/[place] College of Cardiology Committee for the redefinition of myocardial infarction. ??Journal of the [place] College of Cardiology 2000; 36: 959-969] Blood specimen (specimen) 09/11/2015 12:30 PM EST 09/11/2015 12:45 PM EST Narrative Resulting Agency Comment Spec In Lab Adolfo Alejo MD CHEMISTRY ORDERABLES Performing Organization Address City/State/[facility] Co de Phone Number MIRNA ROSAS * EKG 12 Lead (09/11/2015 11:00 AM EST) [facility] Ventricular rate 72 BPM MUSE SYSTEM Atrial Rate 72 BPM MUSE SYSTEM P-R Interval 180 ms MUSE SYSTEM QRS Duration 94 ms MUSE SYSTEM Q-T Interval 358 ms MUSE SYSTEM QTC Calculated (Bezet) 392 ms MUSE SYSTEM Calculated P [place] 73 degrees MUSE SYSTEM Calculated R [place] 74 degrees MUSE SYSTEM Calculated T [place] 63 degrees MUSE SYSTEM INTERPRETATION Normal sinus rhythm Normal ECG No previous ECGs available Confirmed by MD Melo, Adolfo ([id number]) on 09/11/2015 1:38:08 PM MUSE SYSTEM 09/11/2015 11:0 0 AM EST 09/11/2015 1:38 PM EST Adolfo Alejo MD ECG ORDERABLES [facility] documented in this encounter Visit Diagnoses Diagnosis Chest discomfort Other chest pain SOB (shortness of breath) Shortness of breath Atypical chest pain Other chest pain Chest discomfort Other chest pain SOB (shortness of breath) Shortness of breath Atypical chest pain Other chest pain documented in this encounter Care Teams Osteopathy Doctor Relationship Specialty Start Date End Date Ralph Ellison MD [facility] [address] [place] [address] PCP - General General Internal Medicine 09/05/1512/13 documented as of this encounter
--- OUTSIDE RECORDS SUMMARY | 2024-05-19 06:22 | XMS_ITS | Encounter Summary ---
Author Organization [facility] Address [facility] [place] [address] Care Team Providers Care Forepart Laster Name Role Phone Michael Mims MD Primary Care Provider [phone] Encounter Details Date Type Department Care Team (Late st Contact Info) Description 10/14/2011 2:00 PM EST Follow-Up [facility] [address] [place] [address] Ramirez Ahuja MD [address] [place] [address] Social History Tobacco Use Types Packs/Day Years [...] 1:00 PM EDT Office [place] [address] Luz Elena Fuentes APRN [facility] [place] [address] documented as of this encounter Visit Diagnoses Not on filedocumented in this encounter Care Teams Forepart Laster Relationship Specialty Start Date End Date Michael Mims MD [address] [place] [address] PCP - General 10/11/11 03/21/14 documented as of this encounter
--- OUTSIDE RECORDS SUMMARY | 2024-05-19 06:22 | XMS_ITS | Encounter Summary ---
Author Organization [facility] Address [facility] [place] [address] Care Team Providers Care Xray Tech Name Role Phone Michael Mims MD Primary Care Provider [phone] Encounter Details Date Type Department Care Team (Late st Contact Info) Description 01/04/2012 11:40 AM EDT Office Visit [address] [address] Michael Mims MD [address] [place] [address] Social History Tobacco Use Types Packs/Day Years [...] PM EDT Office Visit Urology at [facility] [place] [address] Luz Elena Fuentes APRN [facility] [place] [address] documented as of this encounter Visit Diagnoses Not on filedocumented in this encounter Care Teams Xray Tech Relationship Specialty Start Date End Date Michael Mims MD [address] [place] [address] PCP - General 10/11/11 03/21/14 documented as of this encounter
--- OUTSIDE RECORDS SUMMARY | 2024-05-19 06:22 | XMS_ITS | Encounter Summary ---
Author Organization [facility] Address [facility] [place] [address] Care Team Providers Care Carbon Grinder Name Role Phone Michael Mims MD Primary Care Provider [phone] Encounter Details Date Type Department Care Team (Late st Contact Info) Description 03/22/2014 1:30 PM EDT Follow-Up [address] [address] Janie Saravia PA [address] [place] [address] Social History Tobacco Use Types Packs/Day Years [...] 1:00 PM EDT Office Visit Urology at [facility] [place] [address] Luz Elena Fuentes APRN [facility] [place] [address] documented as of this encounter Visit Diagnoses Not on filedocumented in this encounter Care Teams Carbon Grinder Relationship Specialty Start Date End Date Michael Mims MD [address] [place] [address] PCP - General 03/22/14 05/28/14 documented as of this encounter
--- OUTSIDE RECORDS SUMMARY | 2024-05-19 06:22 | XMS_ITS | Encounter Summary ---
[place] [address] Care Team Providers Care Roofing Apprentice Name Role Phone Dom Kennedy MD Primary Care Provider [phone] Encounter Details Date Type Department Care Team (Late st Contact Info) Description 12/16/2010 [place] [address] Unknown None Social History Tobacco Use Types [...] 1:00 PM EDT Office [place] [address] Luz Elena Fuentes APRN [facility] [place] [address] documented as of this encounter Procedures Procedure [...] EXAMINATION: ??CT ??7991 - CT CHEST W/CONTRAST ??[address] DIAGNOSIS: ?MORBID OBESITY, GERD, DIABETES REASON: ? [...] cholelithiasis as incidental findings. INTERPRETING PHYSICIAN: ??KEO LATIF M.D. ? TRANSCRIBED BY/DATE: ?? LS ??on December ??4 2010 ??1:05P ELECTRONICALLY AUTHORIZED BY: ?? KEO LATIF M.D. ? May ??6 2010 ??8:53A Procedure Note Keo Latif MD - 04/01/2017 External Results Connor Gottlieb Final Report EXAMINATION: CT 7991 - CT CHEST W/CONTRAST [address]78 DIAGNOSIS: MORBID OBESITY, GERD, DIABETES REASON: elevated [...] cholelithiasis as incidental findings. INTERPRETING PHYSICIAN: KEO LATIF M.D. TRANSCRIBED BY/DATE: on Dec 16 2010 1:05P ELECTRONICALLY AUTHORIZED BY: KEO LATIF M.D. Dec 18 2010 8:53A Unknown IMG CT ORDERABLES documented in this encounter Visit Diagnoses Not on filedocumented in this encounter Care Teams Roofing Apprentice Relationship Specialty Start Date End Date Dom Kennedy MD PCP - General 12/28/16 documented as of this encounter
--- OUTSIDE RECORDS SUMMARY | 2024-05-19 06:22 | XMS_ITS | Encounter Summary ---
Author Organization [facility] [place] [address] Care Team Providers Care Dyehouse Worker Name Role Phone Keo Orozco APRN Primary Care Provider [phone] Encounter Details Date Type Department Care Team (Late st Contact Info) Description 03/19/2011 10:30 AM EDT Follow-Up [facility] [address] [place] [address] Ramirez Ahuja MD [address] [place] [address] Social History Tobacco Use Types Packs/Day Years [...] 1:00 PM EDT Office [place] [address] Luz Elena Fuentes APRN [facility] [address] documented as of this encounter Visit Diagnoses Not on filedocumented in this encounter Care Teams Dyehouse Worker Relationship Specialty Start Date End Date Keo Orozco APRN [address] [place] [address] PCP - General 09/30/10 09/29/11 documented as of this encounter
--- OUTSIDE RECORDS SUMMARY | 2024-05-19 06:22 | XMS_ITS | Encounter Summary ---
Author Organization [facility] [place] [address] Care Team Providers Care Associate Professor Of Church Music Name Role Phone Keo Orozco APRN Primary Care Provider Encounter Details Date Type Department Care Team (Late st Contact Info) Description 02/11/2011 9:15 AM EDT Follow-Up [facility] [address] [place] [phone] Ramirez Ahuja MD [address] [place] [address] Social History Tobacco Use Types Packs/Day Years [...] 1:00 PM EDT [place] [address] Luz Elena Fuentes APRN [facility] [place] [address] documented as of this encounter Visit Diagnoses Not on filedocumented in this encounter Care Teams Associate Professor Of Church Music Relationship Specialty Start Date End Date Keo Orozco APRN [address] [place] [address] PCP - General 09/30/10 09/29/11 documented as of this encounter
--- OUTSIDE RECORDS SUMMARY | 2024-05-19 06:22 | XMS_ITS | Encounter Summary ---
Author Organization [facility] [place] [address] Care Team Providers Care Repairer Engine Production Name Role Phone Dom Kennedy MD Primary Care Provider [phone] Encounter Details Date Type Department Care Team (Late st Contact Info) Description 05/01/2020 Ancillary Procedure Radiology Library at [facility] [place] [address] Estrella Hickman MD [facility] [place] [address] Social History Tobacco Use Types Packs/Day Years [...] 1:00 PM EDT Office Visit Urology at [facility] [place] [address] Luz Elena Fuentes APRN [facility] [place] [address] documented as of this encounter Procedures Procedure Name Priority Date/Time Associated Diagnosis Comments FILM LIBRARY STORAGE ONLY CT ABDOMEN AND PELVIS Routine 05/01/2020 12:00 AM EDT documented in this encounter Results * Film Library- Storage Only CT Abdomen & Pelvis (05/01/2020 12:00 AM EDT) Narrative [facility] - 05/14/2020 9:49 PM EDT This exam is auto-finalizing. It's purpose is for storage only. Estrella Hickman MD IMG FILM LIBRAR Y ORDERABLES Performing Organization Address City/State/[facility] Co de Phone Number [place], [place] documented in this encounter Visit Diagnoses Not on filedocumented in this encounter Care Teams Repairer Engine Production Relationship Specialty Start Date End Date Dom Kennedy MD PCP - General 12/28/16 documented as of this encounter
--- OUTSIDE RECORDS SUMMARY | 2024-05-19 06:22 | XMS_ITS | Encounter Summary ---
[place] [address] Care Team Providers Care Lumber Sorter Name Role Phone Dom Kennedy MD Primary Care Provider [phone] Encounter Details Date Type Department Care Team (Late st Contact Info) Description 12/16/2010 [place] [address] Unknown None Social History Tobacco Use Types [...] PM EDT [place] [address] Luz Elena Fuentes APRN [facility] [place] [address] documented as of this encounter Procedures Procedure [...] EXAMINATION: ??RAD 7422 - BARIUM SWALLOW (ESOPHAGUS) 84263 DIAGNOSIS: ?MORBID OBESITY, GERD, DIABETES REASON: ? Post Lap. Gastric Band RESULT: ? Clinical Indication: ??Post lap band procedure. FINDINGS: ?The preliminary layer out plate glass film demonstrates characteristic positioning of the metallic gastric band within the left upper quadrant. The patient initiates swallowing without difficulty. ??The barium readily traverses through the banded stomach without evidence for obstruction, abnormal pooling or extravasation. ??There is scattered tertiary wave contractions noted along the distal esophagus incidentally. IMPRESSION: ??Satisfactory postoperative appearances. INTERPRETING PHYSICIAN: ??BIJAN RENTERIA M.D. ? TRANSCRIBED BY/DATE: ?? CEJA on December ??2010 11:52A ELECTRONICALLY AUTHORIZED BY: ?? BIJAN RENTERIA M.D. ? May ??2010 ??4:41P Procedure Note Bijan Renteria MD - 04/01/2017 External Results Connor Gottlieb Final Report EXAMINATION: RAD 7422 - BARIUM SWALLOW (ESOPHAGUS) [address]3610 DIAGNOSIS: MORBID OBESITY, GERD, DIABETES REASON: Post Lap. Gastric Band RESULT: Clinical Indication: Post lap band procedure. FINDINGS: The preliminary layer out plate glass film demonstrates characteristic positioning of the metallic [...] on filedocumented in this encounter Care Teams Lumber Sorter Relationship Specialty Start Date End Date Dom Kennedy MD PCP - General 12/28/16 documented as of this encounter
--- OUTSIDE RECORDS SUMMARY | 2024-05-19 06:22 | XMS_ITS | Encounter Summary ---
Author Organization [facility] [place] [address] Care Team Providers Care Event Marketing Specialist Name Role Phone Keo Orozco APRN Primary Care Provider [phone] Encounter Details Date Type Department Care Team (Late st Contact Info) Description 02/01/2011 11:30 AM EDT Follow-Up [facility] [address] [place] [phone] Ramirez Ahuja MD [address] [place] [address] Social History Tobacco Use Types Packs/Day Years [...] 1:00 PM EDT [place] [address] Luz Elena Fuentes APRN [facility] [place] [address] documented as of this encounter Visit Diagnoses Not on filedocumented in this encounter Care Teams Event Marketing Specialist Relationship Specialty Start Date End Date Keo Orozco APRN [address] [place] [address] PCP - General 09/30/10 09/29/11 documented as of this encounter
--- OUTSIDE RECORDS SUMMARY | 2024-05-19 06:22 | XMS_ITS | Encounter Summary ---
Author Organization [facility] Address [facility] [place] [address] Care Team Providers Care Astronautical Engineer Name Role Phone Ralph Ellison MD Primary Care Provider Encounter Details Date Type Department Care Team (Late st Contact Info) Description 12/05/2015 10:00 AM EDT Office Visit General Surgery [facility] [address] [place] [address] Keo Cardoso MD [address] [place] [address] Social History Tobacco Use Types Packs/Day Years [...] 1:00 PM EDT Office Visit Urology at [facility] [place] [address] Luz Elena Fuentes APRN [facility] [place] [address] documented as of this encounter Visit Diagnoses Not on filedocumented in this encounter Care Teams Astronautical Engineer Relationship Specialty Start Date End Date Raplh Ellison MD [facility] [address] [place] [address] PCP - General General Internal Medicine 09/05/1512/13 documented as of this encounter
--- OUTSIDE RECORDS SUMMARY | 2024-05-19 06:22 | XMS_ITS | Encounter Summary ---
Author Organization [facility] [place] [address] Care Team Providers Care Primary Care Pediatrician Name Role Phone Keo Orozco APRN Primary Care Provider Encounter Details Date Type Department Care Team (Late st Contact Info) Description 12/03/2010 6:15 AM EDT Office Visit [address] [phone] Social History Tobacco Use Types Packs/Day Years [...] 1:00 PM EDT Office [place] [address] Luz Elena Fuentes APRN [facility] [place] [address] documented as of this encounter Visit Diagnoses Not on filedocumented in this encounter Care Teams Primary Care Pediatrician Relationship Specialty Start Date End Date Keo Orozco APRN [address] [place] [address] PCP - General 09/30/10 09/29/11 documented as of this encounter
--- OUTSIDE RECORDS SUMMARY | 2024-05-19 06:22 | XMS_ITS | Encounter Summary ---
Author Organization [facility] [place] [address] Care Team Providers Care Crushing Mill Operator Name Role Phone Keo Orozco APRN Primary Care Provider Encounter Details Date Type Department Care Team (Late st Contact Info) Description 02/26/2011 10:45 AM EDT Follow-Up [facility] [address] [place] [phone] Ramirez Ahuja MD [address] [place] [address] Social History Tobacco Use Types Packs/Day Years [...] 1:00 PM EDT [place] [address] Luz Elena Fuentes APRN [facility] [place] [address] documented as of this encounter Visit Diagnoses Not on filedocumented in this encounter Care Teams Crushing Mill Operator Relationship Specialty Start Date End Date Keo Orozco APRN [address] [place] [address] PCP - General 09/30/10 09/29/11 documented as of this encounter
--- OUTSIDE RECORDS SUMMARY | 2024-05-19 06:22 | XMS_ITS | Encounter Summary ---
Author Organization [facility] [place] [address] Care Team Providers Care Hide Buffer Name Role Phone Ralph Ellison MD Primary Care Provider [phone] Encounter Details Date Type Department Care Team (Late st Contact Info) Description 10/30/2015 10:30 AM EDT Office Visit Cardiology at [address] [place] [address] Quentin Alejo MD [facility] [place] [address] Atypical chest pain Social History Tobacco Use [...] documented in this encounter Progress Notes * Quentin Alejo MD - 10/30/2015 1:20 PM EDT Images from the original note were not included. [facility] [place]Y [place]ui [address] CARDIOLOGY OUTPATIENT FOLLOW-UP NOTE Jefry Guadarrama [id number] PCP: RALPH ELLISON MD 10/30/2015 PRIMARY CARE PROVIDER: RALPH ELLISON MD PROBLEM LIST: Patient Active Problem List Diagnosis ??? Atypical chest pain ?? Nuclear stress test [facility] in 2014 reportedly negative ?? Treadmill stress test [facility] August 21, [address] depression [...] He had a nuclear stress test at [facility] a year ago which was negative. More recently he had a treadmill stress test at [facility] in this elicited some discomfort and EKG [...] 1:00 PM EDT Office [place] [phone] Luz Elena Fuentes APRN [facility] [place] [address] documented as of this encounter Visit Diagnoses Diagnosis Atypical chest pain Other chest pain documented in this encounter Care Teams Hide Buffer Relationship Specialty Start Date End Date Ralph Ellison MD [address] [facility] [address] PCP - General General Internal Medicine 09/05/1512/13 documented as of this encounter
--- OUTSIDE RECORDS SUMMARY | 2024-05-19 06:22 | XMS_ITS | Encounter Summary ---
Author Organization [facility] Address [facility] [place] [address] Care Team Providers Care Early Childhood Education Coordinator Name Role Phone Michael Mims MD Primary Care Provider [phone] Encounter Details Date Type Department Care Team (Late st Contact Info) Description 12/15/2011 8:00 AM EDT Follow-Up [address] [address] Janie Saravia PA [address] [place] [address] Social History Tobacco Use Types Packs/Day Years [...] 1:00 PM EDT Office Visit Urology at [facility] [place] [address] Luz Elena Fuentes APRN [facility] [place] [address] documented as of this encounter Visit Diagnoses Not on filedocumented in this encounter Care Teams Early Childhood Education Coordinator Relationship Specialty Start Date End Date Michael Mims MD [address] [place] [address] PCP - General 10/11/11 03/21/14 documented as of this encounter
--- OUTSIDE RECORDS SUMMARY | 2024-05-19 06:22 | XMS_ITS | Encounter Summary ---
Author Organization [facility] [place] [address] Care Team Providers Care Compensation Director Name Role Phone Michael Mims MD Primary Care Provider [phone] Encounter Details Date Type Department Care Team (Late st Contact Info) Description 12/10/2011 9:00 AM EDT Laboratory Appointment [address] [phone] Social History Tobacco Use Types Packs/Day Years [...] 1:00 PM EDT [place] [address] Luz Elena Fuentes APRN [facility] [place] [address] documented as of this encounter Visit Diagnoses Not on filedocumented in this encounter Care Teams Compensation Director Relationship Specialty Start Date End Date Michale Mims MD [address] [place] [address] PCP - General 10/11/11 03/21/14 documented as of this encounter
--- OUTSIDE RECORDS SUMMARY | 2024-05-19 06:22 | XMS_ITS | Encounter Summary ---
Author Organization [facility] Address [facility] [place] [address] Care Team Providers Care Claims Adjustor Name Role Phone Dom Kennedy MD Primary Care Provider [phone] Encounter Details Date Type Department Care Team (Late st Contact Info) Description 05/28/2020 11:00 AM EDT Office Visit Urology at [facility] [place] [place] [address] Estrella Hickman MD [facility] [place] [address] Lower urinary tract symptoms (LUTS); Gross hematuria Social History Tobacco Use Types Packs/Day Years Used Date Smoking Tobacco: Never Smokeless Tobacco: Never Sex and Gender Information Value Date Recorded Sex Assigned at Not on file Gender Identity Not on file Sexual Orientation Not on file documented as of this encounter Patient Instructions * Patient Instructions* Crsi Barba LPN - 05/28/2020 11:00 AM EDT Instructions following Cystoscopy Activity: As tolerated by your comfort level. Fluids: You should increase your water today. Avoid coffee, tea and cola. You do not need to rtesvr20 ounces of water today. Urination: You will likely have a small amount of blood in your urine for the next several days. This is normal; however, if you are passing large amounts of blood clots or are unable to void please call our office at [phone] before 5PM or [phone] after hours. Please call if: * you have copious blood in your urine * fevers greater than 101.3 F * you are unable to void The number for questions is [phone] before 5 PM weekdays and [phone] after 5 PM and weekends. Follow-up: With [...] 1:00 PM EDT [place] [address] Luz Elena Fuentes APRN [facility] [address] documented as of this encounter Procedures Procedure Name Priority Date/Time Associated Diagnosis Comments NON-SUBSTITUTE CROSSING GUARD FINAL REPORT Routine 05/28/2020 12:31 PM EDT CYTOPATHOLOGY NON-GYNECOLOGICAL Routine 05/28/2020 12:31 PM EDT Gross hematuria CYSTOSCOPY Routine 05/28/2020 11:00 AM EDT Lower urinary tract symptoms (LUTS) documented in this encounter Results * Non-Sales Solutions Associate Final Report (05/28/2020 12:31 PM EDT) Diagnosis Discussion [id number] ? Location: The signing pathologist has (i) examined the relevant preparation(s) for the specimen(s) and (ii) rendered or confirmed the diagnosis(es). . ? Non-Sales Solutions Associate Final DIAGNOSIS Atypical Urothelial Cells See discussion. Electronically signed by: ??Cyndi BRASWELL, Miguel Yuan Verified: ??05/30/2020 ?Cytopathologis t Performed at: ??-[facility] [place], [place], [place] DISCUSSION Urine, voided: Atypical single urothelial cells, some showing degenerative changes, present. Reference: Prosper MENDEZ, ?? Sarah ORTIZ, Cuong ??DFI. The Radha System for Reporting Urinary Cytology. [place]: Soni; 2016. CLINICAL INFORMATION Specimen Source : Urine, voided Pertinent Clinical Data and Significant Therapy: Hematuria Clinical Impression : Gross hematuria Pertinent Radiologic Findings ??: (not provided) Gross Description: Received ??fresh, approximately 65 mL total volume of ?? clear, yellow fluid. Total Preparation: Liquid-Based Prep 1. 05/30/2020 1:11 PM EDT [facility] URINE SPECIMEN OBTAINED BY CLEAN CATCH PROCEDURE / Unknown 05/28/2020 12:31 PM EDT 05/28/2020 12:31 PM EDT Estrella Hickman MD PATHOLOGY/CYTOL OGY ORDERABLES Performing Organization Address City/[facility] Co de Phone Number [facility] [place] [address] * Cytopathology Non-Gynecological (05/28/2020 12:31 PM EDT) AP Specimen 05/28/2020 12:3 1 PM EDT 05/28/2020 12:31 PM EDT Narrative [facility] - 05/28/2020 12:31 PM EDT Specimen requisition ordered. ??Separate Pathology report to follow Estrella Hickman MD PATHOLOGY/CYTOL OGY ORDERABLES Performing Organization Address [facility] [place] [address] * Cystoscopy - Today (05/28/2020 11:00 AM [...] documented in this encounter Care Teams Claims Adjustor Relationship Specialty Start Date End Date Dom Kennedy MD PCP - General 12/28/16 documented as of this encounter
--- OUTSIDE RECORDS SUMMARY | 2024-05-19 06:22 | XMS_ITS | Encounter Summary ---
Author Organization [facility] Address [facility] [place] [address] Care Team Providers Care Outbound Sales Specialist Name Role Phone Micheal Mims MD Primary Care Provider [phone] Encounter Details Date Type Department Care Team (Late st Contact Info) Description 03/22/2014 1:00 PM EDT Office Visit [facility] [place] [address] [place] [phone] Ramirez Ahuja MD [address] [place] [address] Social History Tobacco Use Types Packs/Day Years [...] 1:00 PM EDT [place] [address] Luz Elena Fuentes APRN [facility] [place] [address] documented as of this encounter Visit Diagnoses Not on filedocumented in this encounter Care Teams Outbound Sales Specialist Relationship Specialty Start Date End Date Michael Mims MD [address] [place] [address] PCP - General 03/22/14 05/28/14 documented as of this encounter
--- OUTSIDE RECORDS SUMMARY | 2024-05-19 06:22 | XMS_ITS | Encounter Summary ---
Author Organization [facility] [place] [address] Care Team Providers Care Tabulating Clerk Name Role Phone Dom Kennedy MD Primary Care Provider [phone] Encounter Details Date Type Department Care Team (Late st Contact Info) Description 03/22/2014 Abstract [facility] [address] [facility] [place] [phone] Provider, His MD Bull Social History Tobacco [...] oz) 03/22/2014 1:00 PM EDT Sourced from [place] Conversion Height 175.3 cm (5' 9) 03/22/2014 1:00 PM EDT Sourced from [place] Conversion Body Mass Index 30.78 03/22/2014 1:00 PM EDT documented in this encounter Plan of Treatment Upcoming Encounters Date Type Department Care Team (Late st Contact Info) Description 05/21/2024 1:00 PM EDT Office Visit Urology at [place] [address] Luz Elena Fuentes APRN [facility] [place] [address] documented as of this encounter Visit Diagnoses Not on filedocumented in this encounter Care Teams Tabulating Clerk Relationship Specialty Start Date End Date Dom Kennedy MD PCP - General 12/28/16 documented as of this encounter
--- OUTSIDE RECORDS SUMMARY | 2024-05-19 06:22 | XMS_ITS | Encounter Summary ---
Author [facility] [place] [address] Care Team Providers Care Audit Lead Name Role Phone Keo Oroczo APRN Primary Care Provider [phone] Encounter Details Date Type Department Care Team (Late st Contact Info) Description 03/18/2011 10:30 AM EDT Office Visit [facility] [address] [place] [address] Lorene Luna, RD [address] [place] [address] Social History Tobacco Use Types Packs/Day Years [...] 1:00 PM EDT [place] [address] Luz Elena Fuentes APRN [facility] [place] [address] documented as of this encounter Visit Diagnoses Not on filedocumented in this encounter Care Teams Audit Lead Relationship Specialty Start Date End Date Keo Orozco APRN [address] [place] [address] PCP - General 09/30/10 09/29/11 documented as of this encounter
--- OUTSIDE RECORDS SUMMARY | 2024-05-19 06:22 | XMS_ITS | Encounter Summary ---
Author Organization [facility] [place] [address] Care Team Providers Care Or Assistant Name Role Phone Dom Kennedy MD Primary Care Provider [phone] Reason for Visit * Reason Comments Follow-up Encounter Details Date Type Department Care Team ([facility] st Contact Info) Description 03/17/2020 11:30 AM EDT Office Visit General Surgery at [address] [phone] Dom Richardson MD [address] [place] [address] [place] [address] Encounter for adjustment of gastric [...] band placed 12/15/[address]Donald Ahuja at [facility]. Preoperative weight: #250 Last adjustment: 12/05/[address] Keo Cardoso at [facility]. 0.25 mL's removed for [...] PSH/Diagnostic History: Last colonoscopy on file at [place] July 2017 colonoscopy with polyp removals. Seen at [facility] August 2023 lumbar blocks relieve back pain. ?? Nuclear stress test [facility] [...] He is and lives with his in [place], [place]. 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 He has never smoked. He drinks a [...] 1:00 PM EDT Office [place] [address] Luz Elena Fuentes APRN [facility] [place] [address] documented as of this encounter Visit Diagnoses Diagnosis Encounter for adjustment of gastric lap band Fitting and adjustment of gastric lap band Hx of laparoscopic gastric banding Bariatric surgery status documented in this encounter Care Teams Or Assistant Relationship Specialty Start Date End Date Dom Kennedy MD PCP - General 12/28/16 documented as of this encounter
--- OUTSIDE RECORDS SUMMARY | 2024-05-19 06:22 | XMS_ITS | Encounter Summary ---
Author Organization [facility] Address [facility] [place] [address] Care Team Providers Care Teletypesetter Operator Name Role Phone Michael Mims MD Primary Care Provider [phone] Encounter Details Date Type Department Care Team (Late st Contact Info) Description 02/23/2012 11:00 AM EDT Office Visit [facility] [address] [place] [phone] David Holliday, PhD [address] [place] [address] Social History Tobacco Use Types Packs/Day Years [...] 1:00 PM EDT [place] [address] Luz Elena Fuentes APRN [facility] [place] [address] documented as of this encounter Visit Diagnoses Not on filedocumented in this encounter Care Teams Teletypesetter Operator Relationship Specialty Start Date End Date Michael Mims MD [address] [place] [address] PCP - General 10/11/11 03/21/14 documented as of this encounter
--- OUTSIDE RECORDS SUMMARY | 2024-05-19 06:22 | XMS_ITS | Encounter Summary ---
Author Organization [facility] Address [facility] [place] [address] Care Team Providers Care Document Improvement Specialist Name Role Phone Michael Mims MD Primary Care Provider [phone] Encounter Details Date Type Department Care Team (Late st Contact Info) Description 04/05/2012 3:30 PM EDT Office Visit [facility] [place] [address] [place] [phone] David Holliday, PhD [address] [place] [address] Social History Tobacco Use Types Packs/Day Years [...] 1:00 PM EDT Office Visit Urology at [facility] [place] [address] Luz Elena Fuentes APRN [facility] [place] [address] documented as of this encounter Visit Diagnoses Not on filedocumented in this encounter Care Teams Document Improvement Specialist Relationship Specialty Start Date End Date Michael Mims MD [address] [place] [address] PCP - General 10/11/11 03/21/14 documented as of this encounter
--- OUTSIDE RECORDS SUMMARY | 2024-05-19 06:22 | XMS_ITS | Encounter Summary ---
Author Organization [facility] [place] [address] Care Team Providers Care Group Insurance Special Agent Name Role Phone Keo Orozco APRN Primary Care Provider Encounter Details Date Type Department Care Team (Late st Contact Info) Description 03/18/2011 2:30 PM EDT Office Visit [address] [phone] Social History Tobacco Use Types Packs/Day Years [...] 1:00 PM EDT [place] [address] Luz Elena Fuentes APRN [facility] [place] [address] documented as of this encounter Visit Diagnoses Not on filedocumented in this encounter Care Teams Group Insurance Special Agent Relationship Specialty Start Date End Date Keo Orozco APRN [address] [place] [address] PCP - General 09/30/10 09/29/11 documented as of this encounter
--- OUTSIDE RECORDS SUMMARY | 2024-05-19 06:22 | XMS_ITS | Encounter Summary ---
Author Organization [facility] Address [facility] [place] [address] Care Team Providers Care Wheel Buffer Name Role Phone Dom Kennedy MD Primary Care Provider [phone] Reason for Visit * Consultation (Routine) - Closed Specialty Diagnoses / Procedures Referred By Portia stuart Referred To Contact Urology Diagnoses GROSS HEMATURIA Dom Kennedy MD [address] [place] [address] [place] [address] [facility] [place] [address] Referral ID Status Reason Start Date Expiration Date Visits Re quested Visits Authorized [id number] Closed 05/13/2020 05/13/2021 1 1 Encounter Details Date Type Department Care Team (Late st Contact Info) Description 05/28/2020 8:00 AM EDT [place] [address] Estrella Hickman MD [facility] [place] [address] Gross hematuria Social History Tobacco Use Types [...] Referred him to Nadege Gaona NP at [facility]. He had the following tests and [...] HEALTH: good REVIEW OF SYSTEMS: Negative. 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
--- OUTSIDE RECORDS SUMMARY | 2024-05-19 06:22 | XMS_ITS | Encounter Summary ---
Author Organization [place] [address] Care Team Providers Care Oncology Admin Name Role Phone Keo Orozco APRN Primary Care Provider [phone] Encounter Details Date Type Department Care Team (Late st Contact Info) Description 12/09/2010 10:00 AM EDT Procedure visit [address] [phone] Social History Tobacco Use Types Packs/Day Years [...] 1:00 PM EDT [place] [address] Luz Elena Fuentes APRN [facility] [place] [address] documented as of this encounter Visit Diagnoses Not on filedocumented in this encounter Care Teams Oncology Admin Relationship Specialty Start Date End Date Keo Orozco APRN [address] [place] [address] PCP - General 09/30/10 09/29/11 documented as of this encounter
--- OUTSIDE RECORDS SUMMARY | 2024-05-19 06:22 | XMS_ITS | Encounter Summary ---
Author Organization [facility] Address [facility] [address] Care Team Providers Care Submarine Diver Name Role Phone Keo Orozco APRN Primary Care Provider Encounter Details Date Type Department Care Team (Late st Contact Info) Description 06/21/2011 2:00 PM EST Follow-Up [place] [facility] [address] [place] [phone] Ramirez Ahuja MD [address] [place] [address] Social History Tobacco Use Types Packs/Day Years [...] 1:00 PM EDT Office Visit Urology at [facility] [place] [address] Luz Elena Fuentes APRN [facility] [place] [address] documented as of this encounter Visit Diagnoses Not on filedocumented in this encounter Care Teams Submarine Diver Relationship Specialty Start Date End Date Keo Orozco APRN [address] [place] [address] PCP - General 09/30/10 09/29/11 documented as of this encounter
--- OUTSIDE RECORDS SUMMARY | 2024-05-19 06:22 | XMS_ITS | Encounter Summary ---
Author Organization [facility] [place] [address] Care Team Providers Care Special Warfare Operator Name Role Phone Keo Orozco APRN Primary Care Provider Encounter Details Date Type Department Care Team (Late st Contact Info) Description 03/05/2011 10:00 AM EDT Office Visit [facility] [address] [place] [phone] Damon Gutierres MD [address] [place] [address] Social History Tobacco Use Types Packs/Day Years [...] 1:00 PM EDT Office Visit Urology at [facility] [place] [address] Luz Elena Fuentes APRN [facility] [place] [address] documented as of this encounter Visit Diagnoses Not on filedocumented in this encounter Care Teams Special Warfare Operator Relationship Specialty Start Date End Date Keo Orozco APRN [address] [place] [address] PCP - General 09/30/10 09/29/11 documented as of this encounter
--- OUTSIDE RECORDS SUMMARY | 2024-05-19 06:22 | XMS_ITS | Encounter Summary ---
Author Organization [facility] Address [facility] [place] [address] Care Team Providers Care Bootmaker Hand Name Role Phone Michael Mims MD Primary Care Provider [phone] Encounter Details Date Type Department Care Team (Late st Contact Info) Description 01/19/2012 1:30 PM EDT Follow-Up [facility] [address] [place] [phone] Ramirez Ahuja MD [address] [place] [address] Social History Tobacco Use Types Packs/Day Years [...] 1:00 PM EDT [place] [address] Luz Elena Fuentes APRN [facility] [place] [address] documented as of this encounter Visit Diagnoses Not on filedocumented in this encounter Care Teams Bootmaker Hand Relationship Specialty Start Date End Date Michael Mims MD [address] [address] PCP - General 10/11/11 03/21/14 documented as of this encounter
--- OUTSIDE RECORDS SUMMARY | 2024-05-19 06:23 | XMS_ITS | Encounter Summary ---
Author Organization [facility] Address [facility] [place] [address] Care Team Providers Care Scissors Grinder Name Role Phone Aftab Coles MD, Dom Conrad Primary Care Provider [phone] Encounter Details Date Type Department Care Team (Late st Contact Info) Description 09/11/2010 4:00 PM EST Office Visit [facility] [place] [address] [place] [phone] Bijan Wallace, DPM [address] [place] [address] Social History Tobacco Use Types Packs/Day Years [...] 1:00 PM EDT Office [place] [address] Luz Elena Fuentes APRN [facility] [place] [place] [address] documented as of this encounter Visit Diagnoses Not on filedocumented in this encounter Care Teams Scissors Grinder Relationship Specialty Start Date End Date Dom Ugalde Jr., MD PCP - General 09/09/10 09/29/10 documented as of this encounter
--- OUTSIDE RECORDS SUMMARY | 2024-05-19 06:23 | XMS_ITS | Encounter Summary ---
Author Organization [facility] Address [facility] [place] [address] Care Team Providers Care Doughnut Machine Operator Name Role Phone Aftab Coles MD, Dom Conrad Primary Care Provider [phone] Encounter Details Date Type Department Care Team (Late st Contact Info) Description 08/21/2010 9:30 AM EST Procedure visit [facility] [address] [place] [address] Ramirez Ahuja MD [address] [place] [address] Social History Tobacco Use Types Packs/Day Years [...] PM EDT Office [place] [address] Luz Elena Fuentes APRN [facility] [place] [address] documented as of this encounter Visit Diagnoses Not on filedocumented in this encounter Care Teams Doughnut Machine Operator Relationship Specialty Start Date End Date Dom Ugalde Jr., MD PCP - General 08/11/10 09/03/10 documented as of this encounter
--- OUTSIDE RECORDS SUMMARY | 2024-05-19 06:23 | XMS_ITS | Encounter Summary ---
Author Organization [facility] [place] [address] Care Team Providers Care Hunting Guide Name Role Phone Aftab Coles MD, Dom Conrad Primary Care Provider [phone]- [phone] Encounter Details Date Type Department Care Team (Late st Contact Info) Description 07/30/2010 2:30 PM EST Office Visit [facility] [address] [place] [address] Lorene Luna, RD [address] [place] [address] Social History Tobacco Use Types Packs/Day Years [...] 1:00 PM EDT Office [place] [address] Luz Elena Fuentes APRN [facility] [place] [place] [address] documented as of this encounter Visit Diagnoses Not on filedocumented in this encounter Care Teams Hunting Guide Relationship Specialty Start Date End Date Dom Ugalde Jr., MD PCP - General 07/07/10 08/05/10 documented as of this encounter
--- OUTSIDE RECORDS SUMMARY | 2024-05-19 06:23 | XMS_ITS | Encounter Summary ---
[place] [address] Care Team Providers Care Proof Clerk Name Role Phone Aftab Coles MD, Dom Conrad Primary Care Provider [phone] Encounter Details Date Type Department Care Team (Late st Contact Info) Description 08/21/2010 6:00 AM EST Procedure visit [address] [phone] Social History Tobacco Use Types Packs/Day Years [...] 1:00 PM EDT Office [place] [address] Luz Elena Fuentes APRN [facility] [place] [address] [place] [address] documented as of this encounter Visit Diagnoses Not on filedocumented in this encounter Care Teams Proof Clerk Relationship Specialty Start Date End Date Dom Ugalde Jr., MD PCP - General 08/11/10 09/03/10 documented as of this encounter
--- OUTSIDE RECORDS SUMMARY | 2024-05-19 06:23 | XMS_ITS | Encounter Summary ---
Author Organization [facility] [place] [address] Care Team Providers Care Kosher Butcher Name Role Phone Dom Kennedy MD Primary Care Provider [phone] Encounter Details Date Type Department Care Team (Late st Contact Info) Description 08/21/[address] [facility] Information Services [address] [place] [phone] Provider, His [place] MD Social History Tobacco [...] 1:00 PM EDT Office Visit Urology at [facility] [place] [address] Luz Elena Fuentes APRN [facility] [place] [place] [address] documented as of this encounter Procedures Procedure Name Priority Date/Time Associated Diagnosis Comments EXTERNAL DIABETES EYE EXAM RESULT Routine 08/17/2011 5:11 PM EST TSH Routine 08/21/2010 10:52 AM EST documented in this encounter Results * (ABNORMAL) Diabetes External Eye Exam (08/17/2011 5:11 PM EST) External DM Eye Exam 08/17/2011 5:11:20 PM; See OpenPlacement system for full report(Externa l Lab) [facility] RESULT CONVERSION Comment:Sourced from Mckenna Gottlieb Conversion Anatomical Region Laterality Modality Other 08/17/2011 5:11 PM EST His [place] Provider OPHTHALMOLOGY SERV ICES ORDERABLES * (ABNORMAL) TSH (08/21/2010 10:52 AM EST) Thyroid Stimulating Hormone 2.88(Exte rnal Lab) 0.30 - 5.5 uIU/mL [facility] RESULT CONVERSION Comment: Sourced from Yolande Gottlieb Conversion 08/21/2010 10:5 2 AM EST His [place] Provider CHEMISTRY ORDERABL ES [facility] RESULT CONVERSION documented in this encounter Visit Diagnoses Not on filedocumented in this encounter Care Teams Kosher Butcher Relationship Specialty Start Date End Date Dom Kennedy MD PCP - General 12/28/16 documented as of this encounter
--- OUTSIDE RECORDS SUMMARY | 2024-05-19 06:23 | XMS_ITS | Encounter Summary ---
Author Organization [facility] [place] [address] Care Team Providers Care Physician Coder Name Role Phone Dom Kennedy MD Primary Care Provider [phone] Encounter Details Date Type Department Care Team (Late st Contact Info) Description 08/21/2010 Abstract [facility] Information Services [address] [place] [phone] Provider, His [place] MD Social History Tobacco [...] 1:00 PM EDT Office Visit Urology at [facility] [place] [address] Luz Elena Fuentes APRN [facility] [place] [address] documented as of this encounter Procedures Procedure Name Priority Date/Time Associated Diagnosis Comments PSA (ULTRASENSITIVE) Routine 08/21/2010 10:52 AM EST documented in this encounter Results * (ABNORMAL) PSA (08/21/2010 10:52 AM EST) PSA Screen 0.42(Exter nal Lab) 0.00 - 4.0 ng/ml [facility] RESULT CONVERSION Comment: Sourced from Connor Wright 08/21/2010 10:5 2 AM EST His [place] Provider CHEMISTRY ORDERABL ES [facility] RESULT CONVERSION documented in this encounter Visit Diagnoses Not on filedocumented in this encounter Care Teams Physician Coder Relationship Specialty Start Date End Date Dom Kennedy MD PCP - General 12/28/16 documented as of this encounter
--- OUTSIDE RECORDS SUMMARY | 2024-05-19 06:23 | XMS_ITS | Encounter Summary ---
Author Organization [facility] [place] [address] Care Team Providers Care Sausage Smoker Name Role Phone Aftab Coles MD, Dom Conrad Primary Care Provider [phone] Encounter Details Date Type Department Care Team (Late st Contact Info) Description 07/30/2010 3:30 PM EST Office Visit [address] [phone] Maura Rooney PsyD [address] [place] [address] [place] [address] Social History Tobacco Use Types [...] 1:00 PM EDT [place] [address] Luz Elena Fuentes APRN [facility] [place] [address] documented as of this encounter Visit Diagnoses Not on filedocumented in this encounter Care Teams Sausage Smoker Relationship Specialty Start Date End Date Dom Ugalde Jr., MD PCP - General 07/07/10 08/05/10 documented as of this encounter
--- OUTSIDE RECORDS SUMMARY | 2024-05-19 06:23 | XMS_ITS | Encounter Summary ---
Author Organization [facility] [place] [address] Care Team Providers Care Director Of Trauma Name Role Phone Dom Kennedy MD Primary Care Provider [phone] Encounter Details Date Type Department Care Team (Late st Contact Info) Description 08/15/2009 External Results Lab at [address] [phone] Social History Tobacco Use Types Packs/Day Years [...] 1:00 PM EDT [place] [address] Luz Elena Fuentes APRN [facility] [place] [address] documented as of this encounter Procedures Procedure Name Priority Date/Time Associated Diagnosis Comments SURGICAL PATHOLOGY REPORT Routine 02/04/2010 1:47 PM EDT documented in this encounter Results * Surgical Pathology Report (02/04/2010 1:47 PM EDT) Final Diagnosis MARCUSNER Final Diagnosis 1. ??ASCENDING COLON BIOPSY: NO [...] totally submitted in two cassettes. Conversion Summary [facility] Case Type: ? Routine Surgical Requesting Provider: ??LETICIA GALEANA M.D. [facility] Pathology Staff Roles Gross: Olman Stuart M.D. ? (P) N ? (ADDITIONAL) Pathologist: Olman Stuart M.D. ? (P) [facility] PATH[facility]Y REPORT CONVERSION 02/04/2010 1:47 PM EDT Provider Kristin Pathology Report Convers ion PATHOLOGY/CYTOLOGY ORDERABLES [facility] PATH[facility]Y REPORT CONVERSION documented in this encounter Visit Diagnoses Not on filedocumented in this encounter Care Teams Director Of Trauma Relationship Specialty Start Date End Date Dmo Kennedy MD PCP - General 12/28/16 documented as of this encounter
--- OUTSIDE RECORDS SUMMARY | 2024-05-19 06:23 | XMS_ITS | Encounter Summary ---
[place] [address] Care Team Providers Care Brake [address] Freight Name Role Phone Aftab Coles MD, Dom Conrad Primary Care Provider [phone] Encounter Details Date Type Department Care Team (Late st Contact Info) Description 08/21/2010 4:00 AM EST Procedure visit [address] [phone] Social History Tobacco Use Types Packs/Day Years [...] 1:00 PM EDT [place] [address] Luz Elena Fuentes APRN [facility] [place] [place] [address] documented as of this encounter Visit Diagnoses Not on filedocumented in this encounter Care Teams [address] Freight Relationship Specialty Start Date End Date Dom Ugalde Jr., MD PCP - General 08/11/10 09/03/10 documented as of this encounter
--- OUTSIDE RECORDS SUMMARY | 2024-05-19 06:23 | XMS_ITS | Encounter Summary ---
Author Organization [facility] Address [facility] [place] [address] Care Team Providers Care Fire Protection Inspector Name Role Phone Aftab Coles MD, Dom Conrad Primary Care Provider [phone] Encounter Details Date Type Department Care Team (Late st Contact Info) Description 09/09/2010 4:15 PM EST Office Visit [address] [phone] Keo Orozco APRN [address] [place] [address] Social History Tobacco Use Types Packs/Day Years [...] 1:00 PM EDT Office [place] [address] Luz Elena Fuentes APRN [facility] [place] [address] documented as of this encounter Visit Diagnoses Not on filedocumented in this encounter Care Teams Fire Protection Inspector Relationship Specialty Start Date End Date Dom Ugalde Jr., MD PCP - General 09/09/10 09/29/10 documented as of this encounter
--- OUTSIDE RECORDS SUMMARY | 2024-05-19 06:23 | XMS_ITS | Encounter Summary ---
Author Organization [facility] Address [facility] [place] [address] Care Team Providers Care Information Systems Auditor Name Role Phone Aftab Coles MD, Dom Conrad Primary Care Provider [phone] Encounter Details Date Type Department Care Team (Late st Contact Info) Description 08/19/2010 3:45 PM EST Office Visit [address] [phone] Keo Orozco APRN [address] [place] [address] Social History Tobacco Use Types Packs/Day Years [...] 1:00 PM EDT [place] [address] Luz Elena Fuentes APRN [facility] [place] [address] documented as of this encounter Visit Diagnoses Not on filedocumented in this encounter Care Teams Information Systems Auditor Relationship Specialty Start Date End Date Dom Ugalde Jr., MD PCP - General 08/11/10 09/03/10 documented as of this encounter
--- OUTSIDE RECORDS SUMMARY | 2024-05-19 06:23 | XMS_ITS | Encounter Summary ---
Author Organization [facility] [place] [address] Care Team Providers Care Manufacturing Design Engineer Name Role Phone Unavailable Primary Care Provider Unavailabl e Encounter Details Date Type Department Care Team (Late st Contact Info) Description 06/24/2010 9:00 AM EST Procedure visit [address] [address] Janie Saravia MD [facility] Social History Tobacco Use Types Packs/Day Years [...] 1:00 PM EDT [place] [address] Luz Elena Fuentes APRN [facility] [place] [place] [address] documented as of this encounter Visit Diagnoses Not on filedocumented in this encounter
--- NOTE | 2024-05-19 06:34 | ED.GENADUL_ITS ---
Discharge Plan Discharge Details Chief Complaint: RespSymp Clinical Impression: Septic shock, Acidosis, lactic, Pneumonia Primary Care Provider: Kade Higuera ED Provider: Eliud Gil Home Meds and New Rx's Prescriptions: No Action tamsulosin 0.4 mg Capsule 0.4 mg PO DAILY sildenafil [Viagra] 100 mg tablet 100 mg PO DAILY PRN Rx Instructions: administer 30 minutes to 4 hours before activity insulin glargine [Lantus Solostar U-100 Insulin] 100 unit/mL (3 mL) insulin pen 20 unit subcut .QD empagliflozin 25 mg tablet 25 mg PO DAILY gabapentin 100 mg capsule See Rx Instructions PO QHS PRN Rx Instructions: orally every day at bedtime PRN; orally every day at bedtime; 1-3 tabs; cyclobenzaprine 5 mg tablet See Rx Instructions PO TID PRN Rx Instructions: 1-2 tabs orally three times a day PRN; glipizide 2.5 mg tablet extended release 24hr 2.5 mg PO DAILY meloxicam 15 mg tablet See Rx Instructions .ROUTE .COMPLEX Qty: 30 2RF Dose Instruction: TAKE ONE TABLET BY MOUTH EVERY DAY Rx Instructions: TAKE ONE TABLET BY MOUTH EVERY DAY fluoxetine 40 MG capsule 40 mg PO DAILY metformin 500 mg tablet extended release 24 hr 1,500 mg PO DAILY albuterol sulfate 90 mcg/actuation HFA aerosol inhaler 3 puff inhalation QID MDD 3 puffs every 4 hours PRN (Reason: shortness of breath or wheezing) Qty: 6.7 0RF HPI General Date/Time Provider Initiated Documentation: 05/19/24 06:23 . HPI Narrative: This is a 63-year-old male with a past medical history of type 2 diabetes, high cholesterol, hypertension, asthma, who presents today for fever. states that for the last 5 days he has had upper respiratory-like symptoms of runny nose and sore throat and congestion. He has also had a mild cough. He has not nodded off fever at home. He has continued to have worsening cough and weakness especially over the last 48 hours. This evening he tried to get up and fell and may have hit something. He was very weak and confused and called EMS for evaluation. Blood sugar was noted to be slightly low compared to his normal. Patient was eventually brought in by ambulance. Patient himself denies any headache or neck pain. He denies any chest pain or shortness of breath however when EMS did arrive he was saturating in the high 80s. No other sick contacts at home. No other modifying factors. No recent long trips surgeries or procedures. Related Data Home Medications ?Medication ?Instructions ?Recorded ?Confirmed fluoxetine 40 mg capsule 40 mg PO DAILY 06/14/13 05/19/24 tamsulosin 0.4 mg capsule 0.4 mg PO DAILY 04/20/19 05/19/24 empagliflozin 25 mg tablet 25 mg PO DAILY 02/17/23 05/19/24 insulin glargine 100 unit/mL (3 20 unit subcut .QD 02/17/23 05/19/24 mL) subcutaneous pen (Lantus Solostar U-100 Insulin) gabapentin 100 mg capsule See Rx Instructions PO QHS PRN 07/18/23 05/19/24 metformin 500 mg tablet,extended 1,500 mg PO DAILY 07/18/23 05/19/24 release 24 hr albuterol sulfate 90 mcg/actuation 3 puff inhalation QID PRN 07/28/23 05/19/24 aerosol inhaler shortness of breath or wheezing #6.7 grams sildenafil 100 mg tablet (Viagra) 100 mg PO DAILY PRN 02/21/24 05/19/24 cyclobenzaprine 5 mg tablet See Rx Instructions PO TID PRN 04/11/24 05/19/24 glipizide 2.5 mg tablet, extended 2.5 mg PO DAILY 04/11/24 05/19/24 release 24 hr meloxicam 15 mg tablet See Rx Instructions .Route 04/29/24 05/19/24 .COMPLEX #30 tabs Previous Rx's ?Medication ?Instructions ?Recorded albuterol sulfate 90 mcg/actuation 3 puff inhalation QID PRN 07/28/23 aerosol inhaler shortness of breath or wheezing #6.7 grams meloxicam 15 mg tablet See Rx Instructions .Route 04/29/24 .COMPLEX #30 tabs Allergies Allergy/AdvReac Type Severity Reaction Status Date / Time ENVIRONMENTAL/DOGS/CATS Allergy Mild ITCHY Uncoded 05/19/24 06:25 WATERY EYES General Stated Complaint: RespSymp SAM: 3 Review of Systems All systems reviewed & are unremarkable except as noted in HPI and below Exam Narrative Exam Narrative: 1.Const: Well-nourished, Well-developed, appearing stated age 2.Eyes: PERRL, no conjunctival injection, and symmetrical lids. 3.ENT: Atraumatic external nose and ears. Notably dry MM. Neck: Symmetric, trachea midline, No thyromegaly. Patient demonstrates good movement of cervical neck. There is no nuchal rigidity, no nuchal tenderness. Patient is able to flex the neck without any difficulty or significant pain. Negative Kernig's and Brudzinski sign. 4.CVS: +S1/S2, No murmurs or gallops. Peripheral pulses 2+ and equal in all extremities. Brisk capillary refill in all extremities. 5.RESP: Rhonchorous breath sounds, crackles on the left, minimal wheeze on the right 6.GI: Soft, Nontender/Nondistended, No hepatosplenomegaly. No guarding or rebound. 7.MSK: Normocephalic/Atraumatic, Extremities w/o deformity or ttp No cyanosis or clubbing, Normal movement of all extremities. No calf tenderness 8.Skin: Warm, Dry. No rashes or lesions. 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 Sensation grossly intact, no focal neurologic deficits. 10.Psych: (AAO) x3. Appropriate mood and affect Course Vital Signs Vital signs: Vital Signs Temperature 39.6 C H 05/19/24 06:15 Pulse 127 H 05/19/24 06:15 Respiratory Rate 20 05/19/24 06:15 Blood Pressure 89/44 L 05/19/24 06:15 Pulse Oximetry 92 05/19/24 06:15 Temperature 39.6 C H 05/19/24 06:23 Temperature Source Oral 05/19/24 06:23 Pulse 127 H 05/19/24 06:23 Respiratory Rate 20 05/19/24 06:15 Respiratory Effort Non-Labored 05/19/24 06:23 Blood Pressure 89/44 L 05/19/24 06:15 Blood Pressure Position Supine 05/19/24 06:15 Pulse Oximetry 92 05/19/24 06:15 Oxygen Delivery Method Room Air 05/19/24 06:15 Oxygen Flow Rate 0 05/19/24 06:15 Lab/Test Results Lab/Test Results: 05/19/24 06:23 Blood Blood Culture - Pending 05/19/24 06:23 Blood Blood Culture - Pending Medical Decision Making This is a 63-year-old male with a past medical history of type 2 diabetes, high cholesterol, hypertension, asthma, who presents today for fever. states that for the last 5 days he has had upper respiratory-like symptoms of runny nose and sore throat and congestion. He has also had a mild cough. He has not nodded off fever at home. He has continued to have worsening cough and weakness especially over the last 48 hours. This evening he tried to get up and fell and may have hit something. He was very weak and confused and called EMS for evaluation. Blood sugar was noted to be slightly low compared to his normal. Patient was eventually brought in by ambulance. Patient himself denies any headache or neck pain. He denies any chest pain or shortness of breath however when EMS did arrive he was saturating in the high 80s. No other sick contacts at home. No other modifying factors. No recent long trips surgeries or procedures. Exam demonstrates dry mucous membranes, rhonchorous breath sounds with occasional scattered wheeze and crackles, patient that is tachycardic and is borderline hypotensive. Concern for sepsis/septic shock and pneumonia. We will get a portable chest x-ray, CAT scan patient's head, give initial indicated fluid bolus of 2 L, give ceftriaxone and doxycycline for respiratory antibiotic coverage, monitor closely and reassess. 7:20 AM Laboratory workup shows no white count, but the patient does have a left shift. Mild alkalosis for pH, lactate is elevated at 4, potassium slightly low at 3.3, we will give 20 mEq of IV potassium. Creatinine 1.2, BUN of 20. Procalcitonin is elevated at 2. Troponin is normal. COVID flu and RSV negative. Pending imaging chest x-ray and CT scan of the head. Antibiotics have already been administered. Blood pressure is improving with fluid resuscitation. Patient will be signed out to my colleague Dr. Mendiola for follow-up on imaging with plan for admission. Quality:SDOH Health Related Social Needs: No Data to Display Critical Care Time Critical Care Time Critical Care Time: Yes Total Critical Care Time: 45 Attestation: Upon my evaluation, this patient had a high probability of imminent or life- threatening deterioration, which required my direct attention, intervention, and personal management. I have personally provided 45 minutes of critical care time exclusive of time spent on separately billable procedures. Time includes review of laboratory data, radiology results, discussion with consultants, and monitoring for potential decompensation. Interventions were performed as documented. [facility] All Active Problems (Updated 05/19/24 @ 07:22 by Eliud Gil DO) Pneumonia (Acute) Acidosis, lactic (Acute) Septic shock (Acute) Bilateral primary osteoarthritis of hip (Chronic) Bilateral intra-articular Depo-Medrol injections: 03/23/2024 Hamstring tightness of both lower extremities (Acute) Patellar tendinitis of both knees (Acute) Left knee pain (Acute) Right knee pain (Acute) Paresthesias (Acute) Corns and callosities (Acute) Hemangioma (Acute) Tubular adenoma (Acute ~07/2023) Screen for colon cancer (Acute) Atypical pigmented skin lesion (Acute) Colon adenomas (Acute) 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) [place]-Schlatter's disease (Acute) Hyperlipidemia (Acute) Sensorineural hearing loss (SNHL) of right ear with unrestricted hearing of left ear (Acute) Pain of right patellofemoral joint (Chronic) Depo-Medrol injection: 04/27/2024 Pain of left patellofemoral joint (Chronic) Depo-Medrol injection: 04/27/2024 Primary hypoadrenalism (Acute) Dysthymic disorder (Acute) HTN (hypertension) (Chronic) Insulin dependent type 2 diabetes mellitus (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 Gross hematuria BMI 28.0-28.9,adult Lower urinary tract symptoms (LUTS) Balanitis Concussion Seborrheic keratosis Exposure to hepatitis B Lower urinary tract infection Obesity Surgical History History of removal of nevus Hx of laparoscopic gastric banding (~12/25/10) 2009 colonoscopy (~07/2023) path sent Social History Smoking/Tobacco Use Status: Never Smoking risk assessment performed?: Yes Alcohol Intake: current Alcohol Intake frequency: holidays/special occasions only Drug use: Never Substance use type: does not use Household members: spouse and children Housing: house Number of Children: 1 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 Do you feel safe at home: Yes Do you feel safe in your relationship?: Yes
[2024-05-19 06:38] LABS: BE (Venous) -3 mmol/L (-2-3); HCO3 (Venous) 21 mmol/L (23-28); O2 Sat (Venous) 91 %; TCO2 (Venous) 19 mmol/L (24-29); pCO2 (Venous) 33 mmHg (41-51); pH (Venous) 7.43 (7.31-7.41); pO2 (Venous) 56 mmHg
[2024-05-19 06:42] LABS: Abs Immature Grans 0.05 10^3/uL (0.0-0.06); Absolute Basophil Count 0.03 10^3/uL (0.0-0.2); Absolute Eosinophil Count 0.06 10^3/uL (0.0-0.7); Absolute Lymphocyte Count 0.41 10^3/uL (1.2-3.4); Absolute Monocyte Count 0.29 10^3/uL (0.1-0.8); Absolute Neutrophil Count 9.45 10^3/uL (1.2-6.7); Basophils % 0.3 %; Eosinophils % 0.6 %; HCT 39.1 % (40.0-50.0); HGB 13.3 g/dL (13.5-17.5); Immature Grans % 0.5 %; MCH 31.8 pg (27.0-33.0); MCV 94 fL (80-95); MPV 8.7 fL (8.0-11.0); Monocytes % 2.8 %; Neutrophils % 91.8 %; Platelet Count 227 10^3/uL (130-400); RBC 4.18 10^6/uL (4.36-5.78); RDW 12.2 % (11.8-14.1); RDW-SD 42.4 fL; WBC 10.29 10^3/uL (4.4-10.8)
[2024-05-19] MEDS: Normal Saline 1,000 ML 1000 ML IV (06:48)
[2024-05-19] MEDS: DOXYCYCLINE 100 MG in Normal Saline 100 ML IVPB (06:48)
[2024-05-19] MEDS: ACETAMINOPHEN 1,000 MG/100 ML BTL 400 MG IVPB (06:49)
[2024-05-19] MEDS: cefTRIAXone 2 GM/50 ML BAG IVPB (06:49)
[2024-05-19] MEDS: Lactated Ringers 1,000 ML 1000 ML IV ×2 (06:49→09:40)
[2024-05-19 07:04] LABS: ALT 19 U/L (16-63); AST 14 U/L (15-37); Alkaline Phosphatase 57 U/L (46-116); Anion Gap 14.1 mmol/L (3-11); BUN 20 mg/dL (7-18); Bilirubin, Total 0.49 mg/dL (0.2-1.0); CO2 22.9 mmol/L (21.0-32.0); CREATININE 1.2 mg/dL (0.70-1.30); Calcium 8.5 mg/dL (8.5-10.1); Chloride 108 mmol/L (98-107); Estimated GFR 67.53 (mL/min/1.73m2); Glucose 217 mg/dL (74-106); Potassium 3.3 mmol/L (3.5-5.1); Sodium 145 mmol/L (136-145); Total Protein 6.7 g/dL (6.4-8.2)
[2024-05-19 07:12] LABS: COVID-19 PCR Negative (Negative); Influenza A PCR Negative (Negative); Influenza B PCR Negative (Negative); RSV PCR Negative (Negative)
[2024-05-19 07:14] LABS: TSH (W/Ref FT4) 1.82 uIU/mL (0.36-3.74); Troponin I 14 ng/L (<or=76)
[2024-05-19 07:17] LABS: Source Nasopharynx
[2024-05-19 07:34] LABS: Magnesium 1.3 mg/dL (1.8-2.4)
[2024-05-19] MEDS: MAGNESIUM SULFATE 2 GM/50 ML BAG IVINF (07:47)
[2024-05-19 07:48] LABS: Lactate 3.9 mmol/L (0.6-1.4)
[2024-05-19] MEDS: POTASSIUM CHLORIDE 20 MEQ/100 ML BAG 50 MEQ IVINF (07:48)
--- NOTE | 2024-05-19 07:49 | DI.CT_ITS ---
Exam(s) CT HEAD CERVICAL SPINE WO EXAM: CT HEAD CERVICAL SPINE WO CLINICAL HISTORY: fall, confused. TECHNIQUE: Imaging Protocol: Axial computed tomography images with coronal and sagittal reformatted images were created and reviewed COMPARISON: CT HEAD WITHOUT CONTRAST from 10/28/2017 FINDINGS: Head CT Ventricles and Extra axial spaces: Normal in size and morphology for the patient's age. Hemorrhage: None. Cerebral parenchyma: No evidence of mass or acute infarct. Midline shift: None. Brainstem/Cerebellum: Normal. Calvarium: Normal. Visualized Paranasal sinuses/Mastoids: Mild mucosal thickening in the maxillary sinuses. Soft tissues: Unremarkable. Cervical Spine CT BONES: Vertebral body heights are maintained.Straightening of the normal cervical lordosis, likely de generative. There is no evidence of acute fracture. Degenerative disc changes and facet degenerative changes are seen. Prominent endplate osteophytes pr ojecting anteriorly having the appearance of DISH. Multilevel bilateral neural foraminal narrowing. SOFT TISSUES: No paraspinal hematoma. The airway appears intact. No pneumothorax is seen at the lung apices. IMPRESSION: Head CT: No acute abnormality. C-spine CT: Degenerative changes, no acute abnormality. RADIATION DOSE DELIVERED: Total DLP DATA REPOSITORY: All CT scans at this facility are submitted to the National Radiology Data Registry (NRDR) Dose Index Registry (DIR) with the [employer] (ACR). RADIATION OPTIMIZATION: All CT scans at this facility use at least one of these dose optimization te chniques: automated exposure control; mA and/or kV adjustment per patient size (includes targeted exa ms where dose is matched to clinical indication); or iterative reconstruction.
--- NOTE | 2024-05-19 07:49 | DI.RAD_ITS ---
Exam(s) XR CHEST 1V IN DI DEPT EXAM: XR CHEST 1V IN DI DEPT CLINICAL HISTORY: SOB, cough, fever TECHNIQUE: 2D digital imaging was performed. COMPARISON: CR XR CHEST 2V PA LATERAL from 07/28/2023 FINDINGS: LUNGS: Increased densities seen at both lung bases may represent atelectasis versus pneumonia. No pl eural abnormality seen. HEART: Normal size. AORTA: Normal diameter. BONES: Unremarkable for age. Soft tissues: Unremarkable. IMPRESSION: Bibasilar atelectasis versus pneumonia. DATA REPOSITORY: RADIATION DOSE DELIVERED:
[2024-05-19 08:07] LABS: Troponin I 29 ng/L (<or=76)
--- NOTE | 2024-05-19 08:13 | DI.VRAD_ITS ---
PROCEDURE INFORMATION: Exam: CT Head Without Contrast Exam date and time: 05/19/2024 7:17 AM Age: 63 years old Clinical indication: Other: Fall confused; Other: Fall/confused TECHNIQUE: Imaging protocol: Computed tomography of the head without contrast. Radiation optimization: All CT scans at this facility use at least one of these dose optimization techniques: automated exposure control; mA and/or kV adjustment per patient size (includes targeted exams where dose is matched to clinical indication); or iterative reconstruction. COMPARISON: CT HEAD WITHOUT CONTRAST 10/28/2017 8:56 AM FINDINGS: Brain: No intracranial hemorrhage appreciated. No significant focal mass effect or significant midline shift. Generalized parenchymal volume loss. Chronic ischemic changes are noted. Cerebral ventricles: No disproportionate ventriculomegaly. Paranasal sinuses: Mild mucosal thickening in the maxillary sinuses. Mastoid air cells: No mastoid effusion. Bones: No acute cranial vault fracture seen. Soft tissues: No acute findings. Vasculature: Arterial calcifications. IMPRESSION: 1. No intracranial sequelae of trauma appreciated. 2. Nonacute findings as outlined above. 3. Additional studies dictated separately. PROCEDURE INFORMATION: Exam: CT Cervical Spine Without Contrast Exam date and time: 05/19/2024 7:17 AM Age: 63 years old Clinical indication: Other: Fall confused; Other: Fall/confused TECHNIQUE: Imaging protocol: Computed tomography of the cervical spine without contrast. Radiation optimization: All CT scans at this facility use at least one of these dose optimization techniques: automated exposure control; mA and/or kV adjustment per patient size (includes targeted exams where dose is matched to clinical indication); or iterative reconstruction. COMPARISON: No relevant prior studies are available for comparison. FINDINGS: Limitations: Mild motion artifact. Artifact from metallic dental hardware obscures surrounding tissues. Bones: No acute cervical spine fracture seen. Multilevel degenerative changes. At C2-C3 there is marked right and moderate left foraminal narrowing. At C3-C4 there is marked bilateral foraminal narrowing. At C4-C5 there is marked bilateral foraminal narrowing. At C6-C7 there is moderate right and marked left foraminal narrowing and mild canal narrowing. Straightening of the normal cervical lordosis may reflect positioning or muscle spasm; correlate clinically. Lungs: No acute findings. Lymph nodes: Bilateral cervical lymph nodes. Soft tissues: See Bones finding. IMPRESSION: 1. No acute cervical spine fracture seen. 2. Findings as above. 3. Additional studies dictated separately. Dictated and Authenticated by: Amaya James MD. Ordering:HERBERT Kline MD
[2024-05-19 08:23] LABS: Bilirubin Negative (Negative); Blood Negative (Negative); Clarity Clear (Clear); Glucose >=1000 mg/dL (Negative); Ketones Negative (Negative); Leukocyte Esterase Negative (Negative); Nitrite Negative (Negative); Specific Gravity 1.015 (1.005-1.025); Urobilinogen 0.2 mg/dL (Up to 0.2)
[2024-05-19 08:38] LABS: Bacteria Rare HPF (Negative); C & S Indicated? C&S Done As Ordered; Crystals Negative HPF (Negative); Epithelial Cells Rare HPF (Negative); Mucus Negative (Negative); RBC 0-2 HPF (0-2); WBC 0-2 HPF (0-5)
--- NOTE | 2024-05-19 08:38 | W.EDPROG ---
Date of service: 05/19/24 Time of Service: 08:38 Medical Decision Making Patient signed out to me pending labs and imaging. Head CT and C-spine read by Sobia as negative and I agree on my read. Chest x-ray on my read shows no acute findings. Patient had mildly low blood pressures with maps in the high 50s, will necessarily liter fluids as he does appear dehydrated. Discussed with hospitalist will admit for further treatment and monitoring. Quality:[facility] Health Related Social Needs: No Data to Display Sign Out Sign Out Data: Sign Out Comment: Cough, fever, hypotensive, slightly hypoxic, septic shock. Suspect pneumonia. Follow-up on imaging, reassess vitals, antibiotics have already been given. Suspect need for admission Last updated by Eliud Gil DO at 05/19/24 07:22 Discharge Plan Disposition Patient Disposition: Admit to [facility] Condition: Serious Discharge Details Chief Complaint: RespSymp Clinical Impression: Acidosis, lactic, Pneumonia Primary Care Provider: Kade Higeura ED Provider: Keo Mendiola [place] Meds and New Rx's Prescriptions: No Action tamsulosin 0.4 mg Capsule 0.4 mg PO DAILY sildenafil [Viagra] 100 mg tablet 100 mg PO DAILY PRN Rx Instructions: administer 30 minutes to 4 hours before activity insulin glargine [Lantus Solostar U-100 Insulin] 100 unit/mL (3 mL) insulin pen 20 unit subcut .QD empagliflozin 25 mg tablet 25 mg PO DAILY gabapentin 100 mg capsule See Rx Instructions PO QHS PRN Rx Instructions: orally every day at bedtime PRN; orally every day at bedtime; 1-3 tabs; cyclobenzaprine 5 mg tablet See Rx Instructions PO TID PRN Rx Instructions: 1-2 tabs orally three times a day PRN; glipizide 2.5 mg tablet extended release 24hr 2.5 mg PO DAILY meloxicam 15 mg tablet See Rx Instructions .ROUTE .COMPLEX Qty: 30 2RF Dose Instruction: TAKE ONE TABLET BY MOUTH EVERY DAY Rx Instructions: TAKE ONE TABLET BY MOUTH EVERY DAY fluoxetine 40 MG capsule 40 mg PO DAILY metformin 500 mg tablet extended release 24 hr 1,500 mg PO DAILY albuterol sulfate 90 mcg/actuation HFA aerosol inhaler 3 puff inhalation QID MDD 3 puffs every 4 hours PRN (Reason: shortness of breath or wheezing) Qty: 6.7 0RF
--- NOTE | 2024-05-19 08:43 | DI.VRAD_ITS ---
PROCEDURE INFORMATION: Exam: XR Chest Exam date and time: 05/19/2024 7:28 AM Age: 63 years old Clinical indication: Cough and fever and shortness of breath TECHNIQUE: Imaging protocol: Radiologic exam of the chest. Views: 1 view. COMPARISON: CR XR CHEST 2V PA LATERAL 07/28/2023 6:32 PM FINDINGS: Lungs: Left retrocardiac opacity. Minimal right basilar opacity. Pleural spaces: No large pleural effusion seen. Heart/Mediastinum: No cardiomegaly. Bones/joints: No acute abnormality. IMPRESSION: Bibasilar opacities as above suspicious for pneumonia, particularly on the left. There may be a component of atelectasis as well. Follow-up as clinically warranted. Dictated and Authenticated by: Amaya James MD. Ordering:HERBERT Kline MD
--- NOTE | 2024-05-19 10:12 | NUR.NOTE ---
report received by Lissy Onofre RN
[2024-05-19] MEDS: Normal Saline 1,000 ML 125 ML IV ×2 (10:41→16:25)
[2024-05-19 10:52] LABS: Troponin I 29 ng/L (<or=76)
[2024-05-19] MEDS: Norepinephrine in D5W 8 MG/250 ML BAG 15 MG IV (10:53)
--- NOTE | 2024-05-19 12:39 | NUR.NOTE ---
report given to Suzy GONZALEZ ICU
--- NOTE | 2024-05-19 12:41 | W.PC.ACHO ---
Registration Status: Primary Language: Preferred Language: ED Information & Data Chief Complaint RespSymp 05/19/24 06:40 Other Complaint GenMedical 05/19/24 06:15 Triage Note BIBA for increasing weakness 05/19/24 06:15 , cold S&S started on tuesday , now feeling worse. T 103. 4F tympanic per EMS, HR 120s enroute. New O2 requirement with EMS. Fall while walking to bathroom tonight, no head strike. 500mL NS enroute. 18g L forearm. T2DM. Medical / Surgical History (Last Reviewed 05/19/24 @ 06:38 by Eliud Gil DO) Seborrheic keratosis (07/15/14) Neoplasm of skin (07/08/14) History of Lyme disease Gross hematuria BMI 28.0-28.9,adult Lower urinary tract symptoms (LUTS) Balanitis Concussion Seborrheic keratosis Exposure to hepatitis B Lower urinary tract infection Obesity (Last Reviewed 05/19/24 @ 06:38 by Eliud Gil DO) History of removal of nevus Hx of laparoscopic gastric banding (~12/25/10) colonoscopy (~07/2023) Most Recent Vital Signs Temperature 38.2 C H 05/19/24 07:50 Temperature Source Oral 05/19/24 06:23 Pulse 108 H 05/19/24 12:31 Pulse 107 H 05/19/24 12:31 Respiratory Rate 18 05/19/24 12:31 Respiratory Effort Normal, Non-Labored 05/19/24 08:13 Respiratory Depth Normal 05/19/24 08:13 Blood Pressure 136/61 05/19/24 12:31 Blood Pressure Mean 88 05/19/24 12:31 Blood Pressure Position Supine 05/19/24 06:15 Pulse Oximetry 96 05/19/24 12:31 Oxygen Delivery Method Room Air 05/19/24 06:15 Oxygen Flow Rate 0 05/19/24 06:15 Comment oral temp 05/19/24 07:50 Allergies ENVIRONMENTAL/DOGS/CATS Allergy (Mild, Uncoded 05/19/24 06:25) ITCHY WATERY EYES Precautions Isolation PUI 05/19/24 06:23 Active Medications Generic Name Dose Route Start Last Admin Trade Name Freq PRN Reason Stop Dose Admin Sodium Chloride 1,000 mls @ 125 mls/hr 05/19/24:15 05/19/24 10:41 Saline 1000ml Bag IV 125 mls/hr INFUSION SHAVON Administration Norepinephrine Bitartrate 8 mg in 250 mls @ 9.375 mls/hr 05/19/24 10:45 05/19/24 10:53 IV 8 mcg/min INFUSION SHAVON 15 mls/hr Administration Protocol 5 MCG/MIN IV IV Catheter Type [Left Peripheral IV Antecubital] IV Catheter Type [Right Hand] Peripheral IV IV Catheter Type [Left Forearm Peripheral IV ] IV Catheter Gauge [Left 18 Antecubital] IV Catheter Gauge [Right Hand] 18 IV Catheter Gauge [Left 18 Forearm] Diet Orders Category Date Time Status Regular/Normal [DIET] Nutrition 05/19/24 Breakfast Active Diagnostics 05/19/24 05/19/24 05/19/24 Range/Units 12:00 10:30 08:10 WBC (4.4-10.8) 10^3/uL RBC (4.36-5.78) 10^6/uL Hgb (13.5-17.5) g/dL Hct (40.0-50.0) % MCV (80-95) fL MCH (27.0-33.0) pg MCHC (32.0-36.0) % RDW (11.8-14.1) % Plt Count (130-400) 10^3/uL MPV (8.0-11.0) fL Immature Gran % % Neutrophils % % Lymphocytes % % Monocytes % % Eosinophils % % Basophils % % Nucleated RBC % (0.0-0.3) % Absolute Neutrophils (1.2-6.7) 10^3/uL Absolute Lymphocytes (1.2-3.4) 10^3/uL Absolute Monocytes (0.1-0.8) 10^3/uL Absolute Eosinophils (0.0-0.7) 10^3/uL Absolute Basophils (0.0-0.2) 10^3/uL VBG pH (7.31-7.41) VBG pCO2 (41-51) mmHg VBG pO2 mmHg VBG HCO3 (23-28) mmol/L VBG Total CO2 (24-29) mmol/L VBG O2 Saturation % VBG Base Excess (-2-3) mmol/L VBG Lactate (0.6-1.4) mmol/L Sodium Pending (136-145) mmol/L Potassium Pending (3.5-5.1) mmol/L Chloride Pending (98-107) mmol/L Carbon Dioxide Pending (21.0-32.0) mmol/L Anion Gap Pending (3-11) mmol/L BUN Pending (7-18) mg/dL Creatinine Pending (0.70-1.30) mg/dL Est GFR (CKD-EPI 2020) Pending (mL/min/1.73m2) Glucose Pending (74-106) mg/dL Calcium Pending (8.5-10.1) mg/dL Magnesium Pending (1.8-2.4) mg/dL Total Bilirubin (0.2-1.0) mg/dL AST (15-37) U/L ALT (16-63) U/L Alkaline Phosphatase (46-116) U/L Troponin I 29 (<or=76) ng/L Total Protein (6.4-8.2) g/dL Albumin (3.4-5.0) g/dL Procalcitonin ng/mL TSH (0.36-3.74) uIU/mL Urine Color Yellow (Yellow) Urine Clarity Clear (Clear) Urine pH 7.0 (5-8) Ur Specific [place] 1.015 (1.005-1.025) Urine Protein Trace (Neg-Trace) mg/dL Urine Ketones Negative (Negative) mg/dL Urine Blood Negative (Negative) Urine Nitrite Negative (Negative) Urine Bilirubin Negative (Negative) Urine Urobilinogen 0.2 (Up to 0.2) mg/dL Ur Leukocyte Esterase Negative (Negative) Urine RBC 0-2 (0-2) HPF Urine WBC 0-2 (0-5) HPF Ur Epithelial Cells Rare (Negative) HPF Urine Crystals Negative (Negative) HPF Urine Bacteria Rare (Negative) HPF Urine Mucus Negative (Negative) Ur Culture Indicated? C&S Done As Ordered Urine Glucose >=1000 H (Negative) mg/dL COVID-19 Source SARS-CoV-2 (PCR) (Negative) Influenza Type A (PCR) (Negative) Influenza Type B (PCR) (Negative) RSV (PCR) (Negative) 05/19/24 05/19/24 05/19/24 Range/Units 07:39 06:28 06:22 WBC 10.29 (4.4-10.8) 10^3/uL RBC 4.18 L (4.36-5.78) 10^6/uL Hgb 13.3 L (13.5-17.5) g/dL Hct 39.1 L (40.0-50.0) % MCV 94 (80-95) fL MCH 31.8 (27.0-33.0) pg MCHC 34.0 (32.0-36.0) % RDW 12.2 (11.8-14.1) % Plt Count 227 (130-400) 10^3/uL MPV 8.7 (8.0-11.0) fL Immature Gran % 0.5 % Neutrophils % 91.8 % Lymphocytes % 4.0 % Monocytes % 2.8 % Eosinophils % 0.6 % Basophils % 0.3 % Nucleated RBC % 0.0 (0.0-0.3) % Absolute Neutrophils 9.45 H (1.2-6.7) 10^3/uL Absolute Lymphocytes 0.41 L (1.2-3.4) 10^3/uL Absolute Monocytes 0.29 (0.1-0.8) 10^3/uL Absolute Eosinophils 0.06 (0.0-0.7) 10^3/uL Absolute Basophils 0.03 (0.0-0.2) 10^3/uL VBG pH 7.43 H (7.31-7.41) VBG pCO2 33 L (41-51) mmHg VBG pO2 56 mmHg VBG HCO3 21 L (23-28) mmol/L VBG Total CO2 19 L (24-29) mmol/L VBG O2 Saturation 91 % VBG Base Excess -3 L (-2-3) mmol/L VBG Lactate 3.9 H* 4.0 H* (0.6-1.4) mmol/L Sodium 145 (136-145) mmol/L Potassium 3.3 L (3.5-5.1) mmol/L Chloride 108 H (98-107) mmol/L Carbon Dioxide 22.9 (21.0-32.0) mmol/L Anion Gap 14.1 H (3-11) mmol/L BUN 20 H (7-18) mg/dL Creatinine 1.2 (0.70-1.30) mg/dL Est GFR (CKD-EPI 2020) 67.53 (mL/min/1.73m2) Glucose 217 H (74-106) mg/dL Calcium 8.5 (8.5-10.1) mg/dL Magnesium 1.3 L (1.8-2.4) mg/dL Total Bilirubin 0.49 (0.2-1.0) mg/dL AST 14 L (15-37) U/L ALT 19 (16-63) U/L Alkaline Phosphatase 57 (46-116) U/L Troponin I 29 14 (<or=76) ng/L Total Protein 6.7 (6.4-8.2) g/dL Albumin 3.0 L (3.4-5.0) g/dL Procalcitonin 2.0 ng/mL TSH 1.82 (0.36-3.74) uIU/mL Urine Color (Yellow) Urine Clarity (Clear) Urine pH (5-8) Ur Specific [place] (1.005-1.025) Urine Protein (Neg-Trace) mg/dL Urine Ketones (Negative) mg/dL Urine Blood (Negative) Urine Nitrite (Negative) Urine Bilirubin (Negative) Urine Urobilinogen (Up to 0.2) mg/dL Ur Leukocyte Esterase (Negative) Urine RBC (0-2) HPF Urine WBC (0-5) HPF Ur Epithelial Cells (Negative) HPF Urine Crystals (Negative) HPF Urine Bacteria (Negative) HPF Urine Mucus (Negative) Ur Culture Indicated? Urine Glucose (Negative) mg/dL COVID-19 Source Nasopharynx SARS-CoV-2 (PCR) Negative (Negative) Influenza Type A (PCR) Negative (Negative) Influenza Type B (PCR) Negative (Negative) RSV (PCR) Negative (Negative) 05/19/24 08:10 Urine Culture - Pending Urine - Clean Catch 05/19/24 06:25 Blood Culture - Pending Blood 05/19/24 06:22 Blood Culture - Pending Blood Intake and Output - 24 Hour Total 05/19/24 05:59 thru 05/19/24 10:41 Intake Total 3430 Output Total 550 Balance 2880 Weight 96.5 kg Intake: IV 3430 Output: Urine 550 Falls Risk Assessment History of Falls Previous History 05/19/24 06:23 Contributing Factors Unstable,Impairments, 05/19/24 06:23 Medications Ambulatory Aids Independent 05/19/24 06:23 Tubes/Lines None 05/19/24 06:23 Gait Evaluation W/any additional score 05/19/24 06:23 Cognition Cognitive impairment 05/19/24 06:23 Fall Total Score 59 05/19/24 06:23 Level of Risk High Risk 05/19/24 06:23 Notes 05/19/24 12:39 Nursing Notes by Jyoti Fox report given to Suzy GONZALEZ ICU Initialized on 05/19/24 12:39 - END OF NOTE 05/19/24 10:12 Nursing Notes by Jyoti Fox report received by Lissy Onofre RN Initialized on 05/19/24 10:12 - END OF NOTE v v v v v v v v v Sending and/or Receiving Nurses: Please use comment section below to note any information pertinent to the patient hand-off not included above. Information / Comments: Report received from: Adarsh Fox RN
--- OUTSIDE RECORDS SUMMARY | 2024-05-19 12:55 | XMS_ITS | Encounter Summary ---
Author Organization [facility] [place] [address] Care Team Providers Care Package Yarns Drying Machine Operator Name Role Phone Dom Kennedy MD Primary Care Provider [phone] Reason for Visit * Reason Comments Medication Refill Encounter Details Date Type Department Care Team (Late st Contact Info) Description 02/25/2023 [place] [phone] Td Blanco MD [facility] [place] [address] Type 2 diabetes mellitus with hyperglycemia, with [...] 1:00 PM EDT Office Visit Urology at [place] [phone] Luz Elena Fuentes APRN [facility] [place] [address] documented as of this encounter Visit Diagnoses Diagnosis Type 2 diabetes mellitus with hyperglycemia, with long-term current use of insulin documented in this encounter Care Teams Package Yarns Drying Machine Operator Relationship Specialty Start Date End Date Dom Kennedy MD PCP - General 12/28/16 documented as of this encounter
--- OUTSIDE RECORDS SUMMARY | 2024-05-19 12:55 | XMS_ITS | Encounter Summary ---
Author Organization [facility] Address [address] [place] [address] Care Team Providers Care Correspondence Specialist Name Role Phone Dom Kennedy MD Primary Care Provider Encounter Details Date Type Department Care Team (Late st Contact Info) Description 03/18/2023 Lab Requisition [facility] Pathology & Laboratory Medicine - [address] [address] Dom Kennedy MD [address] [place] [address] [place], [place] [id number] Encounter for other general examination Social History [...] management options, if applicable. 03/21/2023 10:35 EDT [facility] Final Diagnosis A. SKIN OF RESTORATIONISM, LEFT, SHAVE BIOPSY: - Seborrheic keratosis, irritated and inflamed. 03/21/2023 10:35 [facility] Attestation By the signature below, the attending physician certifies that they have 1) personally conducted a gross and/or microscopic examination of the described specimen(s), and/or personally interpreted the results of laboratory testing of the described specimen(s), and 2) personally rendered or confirmed the above diagnosis. 03/21/2023 10:35 [facility] at 1035 Microscopic Description Orthohyperkeratosis [...] vacuolar change and keratinocyte necrosis. 03/21/2023 10:35 [facility] Clinical History Fleshy plaque left yazidism, growing SK vs squamous 03/21/2023 10:35 [facility] Gross Description A. Received in formalin labelled with proper patient identification (initials B, R) and left yazidism is a 0.8 x 0.4 by less than 0.1 cm white-moran, mottled, focally papular skin shave which is inked blue, bisected and is submitted in its entirety in A1. FITO CADE(ASCP) 03/18/2023 15:12 03/21/2023 10:35 T [facility] Performing Lab [facility] 03/21/2023 10:35 [facility] Scanned Images 03/21/2023 10:35 [facility] Tissue TISSUE SPECIMEN FROM SKIN / Unknown 03/17/2023 10:00 EDT 03/18/2023 10:03 EDT Dom Kennedy MD PATHOLOGY ORDERABLES [facility] [address] [place] [address] documented in this encounter Visit Diagnoses Diagnosis Encounter for other general examination documented in this encounter Care Teams Correspondence Specialist Relationship Specialty Start Date End Date [place] [address] PCP - General 12/14/18 documented as of this encounter
--- OUTSIDE RECORDS SUMMARY | 2024-05-19 12:55 | XMS_ITS | Encounter Summary ---
Author Organization [facility] Address [address] [place] [address] Care Team Providers Care Museum Preparator Name Role Phone Dom Kennedy MD Primary Care Provider [phone] Encounter Details Date Type Department Care Team (Late st Contact Info) Description 07/25/2023 Lab Requisition [facility] Pathology & Laboratory Medicine - [address] [address] Ramy Knapp MD [address] [place] [address], [address] [place] [address] Encounter for screening for malignant [...] management options, if applicable. 07/26/2023 16:08 EST [facility] Final Diagnosis A. SKIN BELOW KNEE, RIGHT, EXCISION: - Hemangioma. B. COLON POLYP, 75 CM, BIOPSY: - Tubular adenoma. See comment. 07/26/2023 16:08 [facility] Diagnosis Comment Specimen B been reviewed by Dr. Barba who concurs with the above diagnosis. 07/26/2023 16:08 [facility] Attestation By the signature below, the attending physician certifies that they have 1) personally conducted a gross and/or microscopic examination of the described specimen(s), and/or personally interpreted the results of laboratory testing of the described specimen(s), and 2) personally rendered or confirmed the above diagnosis. 07/26/2023 16:08 [facility] at 1607 Clinical History A. Bx lesion RT knee, vascular appearing skin lesion-pigmented; B. Colon polyp @ 75 cm, screening colonoscopy, polyp 07/26/2023 16:08 [facility] Gross Description A. Received [...] B1. FITO TEJEDA(ASCP) 07/26/2023 7:44 07/26/2023 16:08 [facility] Performing Lab [facility] 07/26/2023 16:08 [facility] Scanned Images 07/26/2023 16:08 [facility] Tissue COLON STRUCTURE / Unknown 07/25/2023 10:47 EST 07/25/2023 18:16 EST Tissue specimen (specimen) COLON STRUCTURE / Unknown 07/25/2023 10:47 EST 07/25/2023 18:16 EST Ramy Knapp MD PATHOLOGY ORDERABLES [facility] [address] [place] [address] documented in this encounter Visit Diagnoses Diagnosis Encounter for screening for malignant neoplasm of colon Special screening for malignant neoplasms, colon documented in this encounter Care Teams Museum Preparator Relationship Specialty Start Date End Date Dom Kennedy MD [facility] [place] [address] PCP - General 12/14/18 documented as of this encounter
--- OUTSIDE RECORDS SUMMARY | 2024-05-19 12:55 | XMS_ITS | Encounter Summary ---
Author Organization [facility] Address [address] [place] [address] Care Team Providers Care Engagement Executive Name Role Phone Unknown, Provider Primary Care Provider [phone] Encounter Details Date Type Department Care Team (Latest Contact Info) Description 07/12/2014 15:01 EST - 07/12/2014 23:59 EST Hospital Encounter [address] [address] Unknown, Provider, Discharge Disposition: Home or Self [...] on filedocumented in this encounter Care Teams Engagement Executive Relationship Specialty Start Date End Date Unknown, Provider, PCP - General 06/15/13 12/13/18 documented as of this encounter
--- OUTSIDE RECORDS SUMMARY | 2024-05-19 12:55 | XMS_ITS | Encounter Summary ---
Author Organization [facility] Address [address] [place] [address] Care Team Providers Care Etcher Apprentice Photoengraving Name Role Phone Dom Kennedy MD Primary Care Provider [phone] Encounter Details Date Type Department Care Team (Late st Contact Info) Description 10/08/2022 Lab Requisition [facility] Pathology & Laboratory Medicine - [address] [id number] Outr Resulting Lab, Provider Social History Tobacco [...] Outr Resulting Lab MICROBIOLOGY - GENERAL ORDERABLES [facility] [address] [place] [address] * COVID-19 TESTING (10/07/2022 12:43 EST) COVID-19 rt-PCR Result Negative Negative 10/09/2022 12:09 EST [facility] Comment: This test has not [...] history, and epidemiological information. Performed on the Flavorvanilher Fusion instrument Performing Lab Walker [facility] 10/09/2022 12:09 EST [facility] Swab 10/07/2022 12:4 3 EST 10/08/2022 18:40 EST Provider Outr Resulting Lab MICROBIOLOGY - GENERAL ORDERABLES [facility] [address] [place] [address] documented in this encounter Visit Diagnoses Not on filedocumented in this encounter Care Teams Etcher Apprentice Photoengraving Relationship Specialty Start Date End Date Dom Kennedy [place] [place] [address] PCP - General 12/14/18 documented as of this encounter
--- OUTSIDE RECORDS SUMMARY | 2024-05-19 12:55 | XMS_ITS | Encounter Summary ---
Author Organization [facility] Address [address] [place] [address] Care Team Providers Care Core Drier Name Role Phone Unknown, Provider Primary Care Provider [phone] Encounter Details Date Type Department Care Team (Late st Contact Info) Description 07/08/2014 Results Only [facility] [phone] Nasrin Ferguson, [address] [place] [address] Social History Tobacco Use Types Packs/Day Years [...] ? OPAL JALLOH ? Accession #: ? [id number] ? : ? 1960 (Age: 53) ??M ? Collect Date: ? 07/08/2014 ? Location: ? [facility] ? Receive Date: ? 07/09/2014 ? Provider: NASRIN FERGUSON DO Copy to: URIEL ROSENBERG MD ? Final Pathologic Diagnosis: A. ??SKIN OF ZOROASTRIAN, RIGHT, SHAVE BIOPSY:- Seborrheic keratosis. B. ??SKIN OF ZOROASTRIAN, LEFT INFERIOR, SHAVE BIOPSY: - Seborrheic keratosis. C. ??SKIN OF ZOROASTRIAN, LEFT SUPERIOR, SHAVE BIOPSY: - Seborrheic keratosis. Document reviewed and electronically signed by: BRANDY CAM MD Report ??Date: 07/10/2014 16:39 By the signature above, the attending physician certifies that he/she has personally conducted a gross and/or microscopic examination of the described specimens and rendered or confirmed the above diagnosis. Specimen(s) Received: A. ?Right episcopalian B. ? Left episcopalian (inferior) C. ? Left episcopalian (superior) Clinical History: Hyperpigmented skin lesions; clinical diagnosis code: ??239.2 Gross Description: A. ?Received in formalin labelled with proper patient identification (initials B, R) and 1. right episcopalian is a shave biopsy of an irregular moran granular friable nodule (1.1 x 0.9 x 0.2 cm). ??Trisected and submitted in A1. B. ?Received in formalin labelled with proper patient identification (initials B, R) and 2. left episcopalian inferior is a shave biopsy of an irregular moran-cui granular papule (0.5 x 0.4 x 0.1 cm). Bisected and submitted in B1. C. ?Received in formalin labelled with proper patient identification (initials B, R) and 3. left episcopalian superior is a shave biopsy of moran-white [...] Pecktte 07/10/2014 08:28 AM End of Report [facility] 07/08/2014 17:3 3 EST 07/09/2014 17:33 EST Nasrin Ferguson DO PATHOLOGY ORDER [place] [address] [place] [address] documented in this encounter Visit Diagnoses Not on filedocumented in this encounter Care Teams Core Drier Relationship Specialty Start Date End Date Unknown, Provider, PCP - General 06/15/13 12/13/18 documented as of this encounter
--- OUTSIDE RECORDS SUMMARY | 2024-05-19 12:55 | XMS_ITS | Encounter Summary ---
[place] [address] Care Team Providers Care Dye Colorist Dyer Name Role Phone Dom Kennedy MD Primary Care Provider Reason for Referral * Consultation (Routine) - Authorized Specialty Diagnoses / Procedures Referred By Portia staurt Referred To Contact Urology Diagnoses Lower urinary tract symptoms (LUTS) Dom Kennedy MD [address] [place] [address] [place] [address] [facility] [place] [address] Referral ID Status Reason Start Date Expiration Date Visits Requested Visits Authorized [id number] Authorized Consult, Test & Treat PCP Updated and/or Approved 3 06/27/2024 6 6 Encounter Details Date Type Department Care Team (Late st Contact Info) Description 07/05/2023 Transcribe Orders eDH Incoming Referrals [phone] Dom Kennedy MD [address] [place] [address] [address] [place], [place] [id number] Lower urinary tract symptoms (LUTS) Social History [...] 1:00 PM EDT [place] [address] Luz Elena Fuentes APRN [facility] [place] [address] Scheduled Referrals Name Type Priority Associated Diagnoses Orde r Schedule Referral to Urology Outpatient Referral Routine Lower urinary tract symptoms (LUTS) Ordered: 07/05/2023 documented as of this encounter Visit Diagnoses Diagnosis Lower urinary tract symptoms (LUTS) Other symptoms involving urinary system documented in this encounter Care Teams Dye Colorist Dyer Relationship Specialty Start Date End Date Dom Kennedy MD PCP - General 12/28/16 documented as of this encounter
--- OUTSIDE RECORDS SUMMARY | 2024-05-19 12:55 | XMS_ITS | Encounter Summary ---
Author Organization [facility] Address [address] [place] [address] Care Team Providers Care Mixing Place Supervisor Name Role Phone Dom Kennedy MD Primary Care Provider Encounter Details Date Type Department Care Team (Late st Contact Info) Description 02/08/2020 Lab Requisition [facility] Pathology & Laboratory Medicine - [address] [phone] Outr Resulting Lab, Provider Social History Tobacco [...] 0.0 - 4.5 ng/mL 02/11/2020 9:59 EDT [facility] Blood VENOUS BLOOD / Unknown 02/08/2020 9:15 EDT 02/08/2020 20:44 EDT Narrative [facility] - 02/11/2020 9:59 EDT NOTE: Serum PSA concentration should not be interpreted as absolute evidence for the presence or absence of malignant disease. Assayed on Siemens ADVIA Centaur XPT using chemiluminescent technology.??Values obtained by using different assay methods cannot be used interchangeably. Provider Outr Resulting Lab CHEMISTRY & BLOOD GAS ORDERABLES [facility] [address] [place] [address] documented in this encounter Visit Diagnoses Not on filedocumented in this encounter Care Teams Mixing Place Supervisor Relationship Specialty Start Date End Date Dom Kennedy MD [address] [place] [address] PCP - General 12/14/18 documented as of this encounter
--- OUTSIDE RECORDS SUMMARY | 2024-05-19 12:55 | XMS_ITS | Encounter Summary ---
Author Organization [facility] Address [address] [place] [address] Care Team Providers Care Quartz Miner Blasting Name Role Phone Unknown, Provider Primary Care Provider [phone] Encounter Details Date Type Department Care Team (Late st Contact Info) Description 06/15/2013 Results Only [facility] [phone] Destiny Caldwell, DO [address] [place] [address] Social History Tobacco Use Types [...] ? OPAL JALLOH ? Accession #: ? [id number] ? : ? 1960 (Age: 52) ??M [...] Caldwell DO PATHOLOGY ORDERABLES Performing Organization Address City/State/[facility] Co de Phone Number SARAH JOHNSON [address] [place] [address] documented in this encounter Visit Diagnoses Not on filedocumented in this encounter Care Teams Quartz Miner Blasting Relationship Specialty Start Date End Date Unknown, Provider, PCP - General 06/15/13 12/13/18 documented as of this encounter
--- OUTSIDE RECORDS SUMMARY | 2024-05-19 12:55 | XMS_ITS | Encounter Summary ---
Author Organization [facility] Address [address] [place] [address] Care Team Providers Care Adobe Layer Helper Name Role Phone Unknown, Provider Primary Care Provider [phone] Encounter Details Date Type Department Care Team (Late st Contact Info) Description 12/11/2018 Results Only [facility] [phone] Maria Guadalupe Kennedy MD [address] [place] [address] Social History Tobacco Use Types Packs/Day Years [...] ? OPAL JALLOH ? Accession #: ? [id number] ? : ? 1960 (Age: 57) ??M [...] (ASCP) 12/12/2018 4:02 PM End of Report [facility] 12/11/2018 15:4 1 EDT 12/12/2018 15:41 EDT Maria Guadalupe Kennedy MD PATHOLOGY ORDERABLES [facility] [address] [place] [address] documented in this encounter Visit Diagnoses Not on filedocumented in this encounter Care Teams Adobe Layer Helper Relationship Specialty Start Date End Date Unknown, Provider, PCP - General 06/15/13 12/13/18 documented as of this encounter
--- OUTSIDE RECORDS SUMMARY | 2024-05-19 12:55 | XMS_ITS | Encounter Summary ---
Author Organization [facility] Address [address] [place] [address] Care Team Providers Care Collections Assistant Name Role Phone Unknown, Provider Primary Care Provider Encounter Details Date Type Department Care Team (Latest Contact Info) Description 12/11/2018 14:55 EDT - 12/11/2018 23:59 EDT Hospital Encounter [address] [address] Unknown, Provider, Discharge Disposition: Home or Self [...] on filedocumented in this encounter Care Teams Collections Assistant Relationship Specialty Start Date End Date Unknown, Provider, PCP - General 06/15/13 12/13/18 documented as of this encounter
--- OUTSIDE RECORDS SUMMARY | 2024-05-19 12:55 | XMS_ITS | Encounter Summary ---
Author Organization [facility] Address [address] [place] [address] Care Team Providers Care Chain Testing Machine Operator Name Role Phone Unknown, Provider Primary Care Provider [phone] Encounter Details Date Type Department Care Team (Latest Contact Info) Description 06/15/2013 8:17 EDT - 06/15/2013 23:59 EDT Hospital Encounter [address] [address] Unknown, Provider, Discharge Disposition: Home or Self [...] on filedocumented in this encounter Care Teams Chain Testing Machine Operator Relationship Specialty Start Date End Date Unknown, Provider, PCP - General 06/15/13 12/13/18 documented as of this encounter
--- OUTSIDE RECORDS SUMMARY | 2024-05-19 12:55 | XMS_ITS | Clinical Summary ---
Author Organization [facility] Address [facility] [place] [address] Care Team Providers Care Meat Pumper Name Role Phone Dom Kennedy MD Primary Care Provider [phone] Allergies Active Allergy Reactions Criticality Noted Date [...] glucose scanning reader (FreeStyle Arleen 14 Day [place]) MiscIndications:Typ e 2 diabetes mellitus with hyperglycemia, with long-term current use of insulin 1 Device by [facility].(Non-Drug; Combo Route) route as needed. 1 [...] 09/11/2015 Overview (09/11/2015): ?? Nuclear stress test [facility] [...] 1:00 PM EDT [place] [phone] Luz Elena Fuentes APRN [facility] [place] [address] Health Maintenance Due Date Last Done Comments [...] Recently Relevant to Health Maintenance Care Teams Meat Pumper Relationship Specialty Start Date End Date Dom Kennedy MD PCP - General 12/28/16
--- OUTSIDE RECORDS SUMMARY | 2024-05-19 12:55 | XMS_ITS | Encounter Summary ---
Author Organization [facility] Address [address] [place] [address] Care Team Providers Care Optometry Assistant Name Role Phone Dom Kennedy MD Primary Care Provider [phone] Encounter Details Date Type Department Care Team (Late st Contact Info) Description 03/17/2023 Lab Requisition [facility] Pathology & Laboratory Medicine - [address] [phone] Outr Resulting Lab, Provider Social History Tobacco [...] PSA 1.1 <=4.5 ng/mL 03/17/2023 22:45 EDT [facility] Blood VENOUS BLOOD / Unknown 03/17/2023 9:50 EDT 03/17/2023 21:48 EDT Narrative [facility] - 03/17/2023 22:45 EDT NOTE: Serum PSA concentration should not be interpreted as absolute evidence for the presence or absence of malignant disease. Assayed on Siemens ADVIA Centaur XPT using chemiluminescent technology.??Values obtained by using different assay methods cannot be used interchangeably. Provider Outr Resulting Lab CHEMISTRY & BLOOD GAS ORDERABLES [facility] [address] [place] [address] documented in this encounter Visit Diagnoses Not on filedocumented in this encounter Care Teams Optometry Assistant Relationship Specialty Start Date End Date Dom Kennedy MD [address] [place], [place] [id number] PCP - General 12/14/18 documented as of this encounter
--- OUTSIDE RECORDS SUMMARY | 2024-05-19 12:55 | XMS_ITS | Encounter Summary ---
[place] [address] Care Team Providers Care Hydraulic Bull Riveter Operator Name Role Phone Dom Kennedy MD Primary Care Provider [phone] Reason for Referral * Consultation (Routine) - Authorized Specialty Diagnoses / Procedures Referred By Portia stuart Referred To Contact Urology Diagnoses Benign prostatic hyperplasia with lower urinary tract symptoms, symptom details unspecified Kade Higuera PA [address] [place] [address] [facility] [place] [address] Referral ID Status Reason Start Date Expiration Date Visits Requested Visits Authorized [id number] Authorized Consult, Test & Treat PCP Updated and/or Approved 01/16/2024 01/15/2025 6 6 Encounter Details Date Type Department Care Team (Late st Contact Info) Description 01/16/2024 Transcribe Orders eDH Incoming Referrals [phone] Kade Higuera PA [address] [place] [address] Benign prostatic hyperplasia with lower [...] 1:00 PM EDT [place] [address] Luz Elena Fuentes APRN [facility] [place] [address] Scheduled Referrals Name Type Priority Associated Diagnoses Orde r Schedule Referral to Urology Outpatient Referral Routine Benign prostatic hyperplasia with lower urinary tract symptoms, symptom details unspecified Ordered: 01/16/2024 documented as of this encounter Visit Diagnoses Diagnosis Benign prostatic hyperplasia with lower urinary tract symptoms, symptom details unspecified documented in this encounter Care Teams Hydraulic Bull Riveter Operator Relationship Specialty Start Date End Date Dom Kennedy MD PCP - General 12/28/16 documented as of this encounter
--- OUTSIDE RECORDS SUMMARY | 2024-05-19 12:55 | XMS_ITS | Clinical Summary ---
Author Organization [facility] Address [address] [place] [address] Care Team Providers Care Glass Cut Off Supervisor Name Role Phone Dom Kennedy MD Primary Care Provider [phone] Social History Tobacco Use Types Packs/Day Years [...] COVID-19 Vaccine (2022-24 season) 2024 Care Teams Glass Cut Off Supervisor Relationship Specialty Start Date End Date Dom Kennedy MD [facility] [place] [address] PCP - General 12/14/18
--- OUTSIDE RECORDS SUMMARY | 2024-05-19 12:55 | XMS_ITS | Encounter Summary ---
Author Organization [facility] Address [address] [place] [address] Care Team Providers Care Campaign Advisor Name Role Phone Dom Kennedy MD Primary Care Provider [phone] Encounter Details Date Type Department Care Team (Late st Contact Info) Description 05/09/2020 Lab Requisition [facility] Pathology & Laboratory Medicine - [address] [phone] Outr Resulting Lab, Provider Social History Tobacco [...] rt-PCR Result NEGATIVE Negative 05/10/2020 21:36 EDT [facility] Comment: 2019-novel Coronavirus (2019-nCoV) [...] Outr Resulting Lab MICROBIOLOGY - GENERAL ORDERABLES [facility] [place], [place] * COVID-19 TESTING (05/09/2020 10:54 EDT) COVID-19 rt-PCR Result NEGATIVE Negative 05/10/2020 23:35 EDT [facility] Comment: 2019-novel Coronavirus (2019-nCoV) not [...] Use Authorization. Performing Lab [facility] 05/10/2020 23:35 EDT [facility] Swab 05/09/2020 10:5 4 EDT 05/09/2020 17:25 EDT Provider Outr Resulting Lab MICROBIOLOGY - GENERAL ORDERABLES [facility] [address] [place] [address] [facility] [place] documented in this encounter Visit Diagnoses Not on filedocumented in this encounter Care Teams Campaign Advisor Relationship Specialty Start Date End Date Dom Kennedy MD [address] [place] [address] PCP - General 12/14/18 documented as of this encounter
--- OUTSIDE RECORDS SUMMARY | 2024-05-19 12:55 | XMS_ITS | Encounter Summary ---
Author Organization [facility] Address [address] [place] [address] Care Team Providers Care Public Speaking Teacher Name Role Phone Dom Kennedy MD Primary Care Provider [phone] Encounter Details Date Type Department Care Team (Late st Contact Info) Description 02/05/2022 Lab Requisition [facility] Pathology & Laboratory Medicine - [address] [phone] Outr Resulting Lab, Provider Social History Tobacco [...] PSA 1.6 <=4.5 ng/mL 02/05/2022 21:58 EDT [facility] Blood VENOUS BLOOD / Unknown 02/05/2022 8:48 EDT 02/05/2022 20:06 EDT Narrative [facility] - 02/05/2022 21:58 EDT NOTE: Serum PSA concentration should not be interpreted as absolute evidence for the presence or absence of malignant disease. Assayed on Siemens ADVIA Centaur XPT using chemiluminescent technology.??Values obtained by using different assay methods cannot be used interchangeably. Provider Outr Resulting Lab CHEMISTRY & BLOOD GAS ORDERABLES [facility] [address] [place] [address] documented in this encounter Visit Diagnoses Not on filedocumented in this encounter Care Teams Public Speaking Teacher Relationship Specialty Start Date End Date Dom Kennedy MD [address] [place], [place] [id number] PCP - General 12/14/18 documented as of this encounter
--- OUTSIDE RECORDS SUMMARY | 2024-05-19 12:55 | XMS_ITS | Encounter Summary ---
Author Organization [facility] Address [facility] [place] [address] Care Team Providers Care Cnp Name Role Phone Dom Kennedy MD Primary Care Provider [phone] Reason for Visit * Reason Comments Medication Refill Encounter Details Date Type Department Care Team (Late st Contact Info) Description 02/10/2022 [place] [address] Td Blanco MD [facility] [place] [address] Type 2 diabetes mellitus with hyperglycemia, with [...] 1:00 PM EDT [place] [address] Luz Elena Fuentes APRN [facility] [place] [address] documented as of this encounter Visit Diagnoses Diagnosis Type 2 diabetes mellitus with hyperglycemia, with long-term current use of insulin documented in this encounter Care Teams Cnp Relationship Specialty Start Date End Date Dom Kennedy MD PCP - General 12/28/16 documented as of this encounter
--- OUTSIDE RECORDS SUMMARY | 2024-05-19 12:55 | XMS_ITS | Encounter Summary ---
Author Organization [facility] Address [address] [place] [address] Care Team Providers Care Senior Reservoir Engineer Name Role Phone Dom Kennedy MD Primary Care Provider [phone] Encounter Details Date Type Department Care Team (Late st Contact Info) Description 01/14/2021 Lab Requisition [facility] Pathology & Laboratory Medicine - [address] [phone] Outr Resulting Lab, Provider Social History Tobacco [...] 0.0 - 4.5 ng/mL 01/14/2021 17:30 EDT [facility] Blood VENOUS BLOOD / Unknown 01/14/2021 9:01 EDT 01/14/2021 15:44 EDT Narrative [facility] - 01/14/2021 17:30 EDT NOTE: Serum PSA concentration should not be interpreted as absolute evidence for the presence or absence of malignant disease. Assayed on Siemens ADVIA Centaur XPT using chemiluminescent technology.??Values obtained by using different assay methods cannot be used interchangeably. Provider Outr Resulting Lab CHEMISTRY & BLOOD GAS ORDERABLES [facility] [address] [place] [address] documented in this encounter Visit Diagnoses Not on filedocumented in this encounter Care Teams Senior Reservoir Engineer Relationship Specialty Start Date End Date Dom Kennedy MD [facility] [place] [place] [address] PCP - General 12/14/18 documented as of this encounter
--- OUTSIDE RECORDS SUMMARY | 2024-05-19 12:55 | XMS_ITS | Referral Summary ---
Author Organization [facility] Address [address] [place] [address] Care Team Providers Care Clothing Worker Name Role Phone Dom Kennedy MD Primary Care Provider [phone] Social History Tobacco Use Types Packs/Day Years Used Date Smoking Tobacco: Never Assessed Interpersonal Safety Answer Date Record ed Physically Hurt Never 03/16/2020 Verbally Threaten Not on file 03/16/2020 Sex and Gender Information Value Date Recorded Sex Assigned at Not on file Gender Identity Not on file Sexual Orientation Not on file Plan of Treatment Not on file Care Teams Clothing Worker Relationship Specialty Start Date End Date Dom Kennedy MD [address] [place] [address] PCP - General 12/14/18
--- OUTSIDE RECORDS SUMMARY | 2024-05-19 12:56 | XMS_ITS | Encounter Summary ---
Author Organization [facility] Address [facility] [place] [address] Care Team Providers Care New Vehicle Sales Consultant Name Role Phone Michael Mims MD Primary Care Provider [phone] Encounter Details Date Type Department Care Team (Late st Contact Info) Description 01/12/2012 11:00 AM EDT Office Visit [facility] [address] [place] [phone] David Holliday, PhD [address] [place] [address] Social History Tobacco Use Types Packs/Day Years [...] 1:00 PM EDT [place] [address] Luz Elena Fuentes APRN [facility] [place] [address] documented as of this encounter Visit Diagnoses Not on filedocumented in this encounter Care Teams New Vehicle Sales Consultant Relationship Specialty Start Date End Date Michael Mims MD [address] [place] [address] PCP - General 10/11/11 03/21/14 documented as of this encounter
--- OUTSIDE RECORDS SUMMARY | 2024-05-19 12:56 | XMS_ITS | Encounter Summary ---
Author Organization [facility] [place] [address] Care Team Providers Care Waterproofing Machine Operator Name Role Phone Dom Kennedy MD Primary Care Provider [phone] Encounter Details Date Type Department Care Team (Late st Contact Info) Description 05/01/2020 Ancillary Procedure Radiology Library at [facility] [place] [address] Estrella Hickman MD [facility] [place] [address] Social History Tobacco Use Types Packs/Day Years [...] 1:00 PM EDT Office Visit Urology at [facility] [place] [address] Luz Elena Fuentes APRN [facility] [place] [address] documented as of this encounter Procedures Procedure Name Priority Date/Time Associated Diagnosis Comments FILM LIBRARY STORAGE ONLY CT ABDOMEN AND PELVIS Routine 05/01/2020 12:00 AM EDT documented in this encounter Results * Film Library- Storage Only CT Abdomen & Pelvis (05/01/2020 12:00 AM EDT) Narrative [facility] - 05/14/2020 9:49 PM EDT This exam is auto-finalizing. It's purpose is for storage only. Estrella Hickman MD IMG FILM LIBRAR Y ORDERABLES Performing Organization Address City/State/[facility] Co de Phone Number [place], [place] documented in this encounter Visit Diagnoses Not on filedocumented in this encounter Care Teams Waterproofing Machine Operator Relationship Specialty Start Date End Date Dom Kennedy MD PCP - General 12/28/16 documented as of this encounter
--- OUTSIDE RECORDS SUMMARY | 2024-05-19 12:56 | XMS_ITS | Encounter Summary ---
Author Organization [facility] [place] [address] Care Team Providers Care Front Office Director Name Role Phone Keo Orozco APRN Primary Care Provider Encounter Details Date Type Department Care Team (Late st Contact Info) Description 02/26/2011 10:45 AM EDT Follow-Up [facility] [address] [place] [phone] Ramirez Ahuja MD [address] [place] [address] Social History Tobacco Use Types Packs/Day Years [...] 1:00 PM EDT Office [place] [address] Luz Elena Fuentes APRN [facility] [place] [address] documented as of this encounter Visit Diagnoses Not on filedocumented in this encounter Care Teams Front Office Director Relationship Specialty Start Date End Date Keo Orozco APRN [address] [place] [address] PCP - General 09/30/10 09/29/11 documented as of this encounter
--- OUTSIDE RECORDS SUMMARY | 2024-05-19 12:56 | XMS_ITS | Encounter Summary ---
Author Organization [facility] [place] [address] Care Team Providers Care Sack Department Supervisor Name Role Phone Keo Orozco APRN Primary Care Provider [phone] Encounter Details Date Type Department Care Team (Late st Contact Info) Description 12/03/2010 9:00 AM EDT Office Visit [facility] [address] [place] [address] Lorene Luna, RD [address] [place] [address] Social History Tobacco Use Types Packs/Day Years [...] 1:00 PM EDT [place] [address] Luz Elena Fuentes APRN [facility] [place] [address] documented as of this encounter Visit Diagnoses Not on filedocumented in this encounter Care Teams Sack Department Supervisor Relationship Specialty Start Date End Date Keo Orozco APRN [address] [place] [address] PCP - General 09/30/10 09/29/11 documented as of this encounter
--- OUTSIDE RECORDS SUMMARY | 2024-05-19 12:56 | XMS_ITS | Encounter Summary ---
Author Organization [facility] [place] [address] Care Team Providers Care Commercial Maintenance Technician Name Role Phone Keo Orozco APRN Primary Care Provider Encounter Details Date Type Department Care Team (Late st Contact Info) Description 03/18/2011 10:30 AM EDT Office Visit [facility] [address] [place] [address] Lorene Luna, RD [address] [place] [address] Social History Tobacco Use Types Packs/Day Years [...] 1:00 PM EDT [place] [address] Luz Elena Fuentes APRN [facility] [place] [address] documented as of this encounter Visit Diagnoses Not on filedocumented in this encounter Care Teams Commercial Maintenance Technician Relationship Specialty Start Date End Date Keo Orozco APRN [address] [place] [address] PCP - General 09/30/10 09/29/11 documented as of this encounter
--- OUTSIDE RECORDS SUMMARY | 2024-05-19 12:56 | XMS_ITS | Encounter Summary ---
Author Organization [facility] [place] [address] Care Team Providers Care Bilingual Spanish Inbound Sales Name Role Phone Keo Orozco APRN Primary Care Provider Encounter Details Date Type Department Care Team (Late st Contact Info) Description 12/09/2010 10:00 AM EDT Procedure visit [address] [phone] Social History Tobacco Use Types Packs/Day Years [...] 1:00 PM EDT Office [place] [address] Luz Elena Fuentes APRN [facility] [place] [address] documented as of this encounter Visit Diagnoses Not on filedocumented in this encounter Care Teams Bilingual Spanish Inbound Sales Relationship Specialty Start Date End Date Keo Orozco APRN [address] [place] [address] PCP - General 09/30/10 09/29/11 documented as of this encounter
--- OUTSIDE RECORDS SUMMARY | 2024-05-19 12:56 | XMS_ITS | Encounter Summary ---
Author Organization [facility] [place] [address] Care Team Providers Care Horse Race Timer Name Role Phone Keo Orozco APRN Primary Care Provider Encounter Details Date Type Department Care Team (Late st Contact Info) Description 12/03/2010 6:15 AM EDT Office Visit [address] [phone] Social History Tobacco Use Types Packs/Day Years [...] 1:00 PM EDT [place] [address] Luz Elena Fuentes APRN [facility] [place] [address] documented as of this encounter Visit Diagnoses Not on filedocumented in this encounter Care Teams Horse Race Timer Relationship Specialty Start Date End Date Keo Orozco APRN [address] [place] [address] PCP - General 09/30/10 09/29/11 documented as of this encounter
--- OUTSIDE RECORDS SUMMARY | 2024-05-19 12:56 | XMS_ITS | Encounter Summary ---
Author Organization [facility] Address [facility] [place] [address] Care Team Providers Care Returning Officer Name Role Phone Michael Mims MD Primary Care Provider [phone] Encounter Details Date Type Department Care Team (Late st Contact Info) Description 12/15/2011 9:00 AM EDT Follow-Up [facility] [address] [place] [address] Ramirez Ahuja MD [address] [place] [address] Social History Tobacco Use Types Packs/Day Years [...] EDT [place] [address] Luz Elena Fuentes APRN [facility] [place] [address] documented as of this encounter Visit Diagnoses Not on filedocumented in this encounter Care Teams Returning Officer Relationship Specialty Start Date End Date Michael Mims MD [address] [address] PCP - General 10/11/11 03/21/14 documented as of this encounter
--- OUTSIDE RECORDS SUMMARY | 2024-05-19 12:56 | XMS_ITS | Encounter Summary ---
Author Organization [facility] Address [facility] [place] [address] Care Team Providers Care Heeler Machine Name Role Phone Dom [place] MD Primary Care Provider [phone] Encounter Details Date Type Department Care Team (Latest Contact Info) Description 07/22/2020 10:26 PM EST - 07/22/2020 11:59 PM EST Hospital [place] [address] Discharge Disposition: Home Social History Tobacco Use [...] 1:00 PM EDT [place] [address] Luz Elena Fuentes [facility] [place] [address] documented as of this encounter Procedures Procedure Name Priority Date/Time Associated Diagnosis Comments COVID-19 PCR Routine 07/22/2020 4:35 PM EST documented in this encounter Results * COVID-19 PCR (07/22/2020 4:35 PM EST) SARS-CoV-2 RNA Not Detected Not Detected [facility] Comment: This result should be [...] on the instructions for use provided by [employer] and additional guidance provided by CDC and FDA. Testing is performed in the Clinical [facility] [facility] within the Department of Pathology and Laboratory Medicine at [facility], certified under the Clinical Laboratory Improvement [...] fact sheets at the following FDA website: https://www.fda.gov/medical-devices/weukocupmel-ubdrzdh-3382-naimc-95-omupsriyl- use-a otcpilpofxvmb-rvoannm-opnczyb/bwghk-tijfxndlbki-kwuy SARS-CoV-2 RNA Source Nasal [facility] Specimen from nose (specimen) Other / Unknown 07/22/2020 4:35 PM EST 07/22/2020 11:24 PM EST Narrative Resulting Agency Comment Spec In Lab Chantel Mcgee MD MOLECULAR ORDERABLES [facility] [place] [address] documented in this encounter Visit Diagnoses Not on filedocumented in this encounter Care Teams Heeler Machine Relationship Specialty Start Date End Date Dom [place] MD PCP - General 12/28/16 documented as of this encounter
--- OUTSIDE RECORDS SUMMARY | 2024-05-19 12:56 | XMS_ITS | Encounter Summary ---
Author Organization [facility] [place] [address] Care Team Providers Care Ob/Gyn Name Role Phone Dom Kennedy MD Primary Care Provider Encounter Details Date Type Department Care Team (Late st Contact Info) Description 12/05/2015 Abstract [facility] Information Services [address] [facility] [place] [phone] Provider, His MD [place] Social History Tobacco [...] 132/90 12/05/2015 10:00 AM EDT Sourced from [place] Conversion Pulse 72 12/05/2015 10:00 AM EDT [...] 1:00 PM EDT [place] [address] Luz Elena Fuentes APRN [facility] [place] [address] documented as of this encounter Visit Diagnoses Not on filedocumented in this encounter Care Teams Ob/Gyn Relationship Specialty Start Date End Date Dom Kennedy MD PCP - General 12/28/16 documented as of this encounter
--- OUTSIDE RECORDS SUMMARY | 2024-05-19 12:56 | XMS_ITS | Encounter Summary ---
Author Organization [facility] [place] [address] Care Team Providers Care Business Services Representative Name Role Phone Ralph Ellison MD Primary Care Provider [phone] Encounter Details Date Type Department Care Team (Late st Contact Info) Description 10/30/2015 10:30 AM EDT Office Visit Cardiology at [address] [place] [address] Quentin Alejo MD [facility] [place] [address] Atypical chest pain Social History Tobacco Use [...] from the original note were not included. [facility] [place] [address] CARDIOLOGY OUTPATIENT FOLLOW-UP NOTE Jefry Guadarrama [id number] PCP: RALPH ELLISON MD 10/30/2015 PRIMARY CARE PROVIDER: RALPH ELLISON MD PROBLEM LIST: Patient Active Problem List Diagnosis ??? Atypical chest pain ?? Nuclear stress test [facility] in 2014 reportedly negative ?? Treadmill stress [...] He had a nuclear stress test at [facility] a year ago which was negative. More recently he had a treadmill stress test at [facility] in this elicited some discomfort and EKG [...] 1:00 PM EDT Office [place] [address] Luz Elena Fuentes APRN [facility] [place] [address] documented as of this encounter Visit Diagnoses Diagnosis Atypical chest pain Other chest pain documented in this encounter Care Teams Business Services Representative Relationship Specialty Start Date End Date Ralph Ellison MD [facility] [address] [place] [address] PCP - General General Internal Medicine 09/05/1512/13 documented as of this encounter
--- OUTSIDE RECORDS SUMMARY | 2024-05-19 12:56 | XMS_ITS | Encounter Summary ---
Author Organization [facility] [place] [address] Care Team Providers Care Beef Tagger Name Role Phone Dom Kennedy MD Primary Care Provider [phone] Reason for Visit * Reason Comments Medication Refill Encounter Details Date Type Department Care Team (Late st Contact Info) Description 12/20/2021 [place] [address] Td Blanco MD [facility] [place] [address] Type 2 diabetes mellitus with hyperglycemia, with long-term current use of insulin Social History Tobacco Use Types Packs/Day Years Used Date Smoking Tobacco: Never Smokeless Tobacco: Never Sex and Gender Information Value Date Recorded Sex Assigned at Not on file Gender Identity Not on file Sexual Orientation Not on file documented as of this encounter Miscellaneous Notes * Telephone Encounter - Mateus Aranog RN - 12/21/2021 1:24 PM EDT 12/21/21: Patient not following up with Dr Blanco, future refills to come from PCP. documented in this encounter Plan of Treatment Upcoming Encounters Date Type Department Care Team (Late st Contact Info) Description 05/21/2024 1:00 PM EDT [place] [address] Luz Elena Fuentes APRN [facility] [place] [address] documented as of this encounter Visit Diagnoses Diagnosis Type 2 diabetes mellitus with hyperglycemia, with long-term current use of insulin documented in this encounter Care Teams Beef Tagger Relationship Specialty Start Date End Date Dom Kennedy MD PCP - General 12/28/16 documented as of this encounter
--- OUTSIDE RECORDS SUMMARY | 2024-05-19 12:56 | XMS_ITS | Encounter Summary ---
Author Organization [facility] [place] [address] Care Team Providers Care Director Of Pediatric Rehabilitation Name Role Phone Dom Kennedy MD Primary Care Provider [phone] Encounter Details Date Type Department Care Team (Late st Contact Info) Description 08/21/2010 Abstract [facility] Information Services [address] [place] [address] Provider, His [place] MD Social History Tobacco [...] 1:00 PM EDT Office Visit Urology at [facility] [place] [address] Luz Elena Fuentes APRN [facility] [place] [address] documented as of this encounter Procedures Procedure Name Priority Date/Time Associated Diagnosis Comments EXTERNAL DIABETES EYE EXAM RESULT Routine 08/17/2011 5:11 PM EST TSH Routine 08/21/2010 10:52 AM EST documented in this encounter Results * (ABNORMAL) Diabetes External Eye Exam (08/17/2011 5:11 PM EST) External DM Eye Exam 08/17/2011 5:11:20 PM; See [employer] system for full report(Externa l Lab) YOLANDE [...] in this encounter Care Teams Director Of Pediatric Rehabilitation Relationship Specialty Start Date End Date Dom Kennedy MD PCP - General 12/28/16 documented as of this encounter
--- OUTSIDE RECORDS SUMMARY | 2024-05-19 12:56 | XMS_ITS | Encounter Summary ---
Author Organization [facility] Address [facility] [place] [address] Care Team Providers Care Cashier Payments Received Name Role Phone Michael Mims MD Primary Care Provider [phone] Encounter Details Date Type Department Care Team (Late st Contact Info) Description 03/22/2014 1:00 PM EDT Office Visit [facility] [address] [place] [address] Ramirez Ahuja MD [address] [place] [address] Social History Tobacco Use Types Packs/Day Years [...] PM EDT Office [place] [address] Luz Elena Fuentes APRN [facility] [place] [address] documented as of this encounter Visit Diagnoses Not on filedocumented in this encounter Care Teams Cashier Payments Received Relationship Specialty Start Date End Date Michael Mims MD [address] [place] [address] PCP - General 03/22/14 05/28/14 documented as of this encounter
--- OUTSIDE RECORDS SUMMARY | 2024-05-19 12:56 | XMS_ITS | Encounter Summary ---
Author Organization [facility] [place] [address] Care Team Providers Care Associate Professor Of Literature Name Role Phone Keo Orozco APRN Primary Care Provider [phone] Encounter Details Date Type Department Care Team (Late st Contact Info) Description 03/19/2011 10:30 AM EDT Follow-Up [facility] [address] [place] [address] Ramirez Ahuja MD [address] [place] [address] Social History Tobacco Use Types Packs/Day Years [...] 1:00 PM EDT [place] [address] Luz Elena Fuentes APRN [facility] [place] [place] [address] documented as of this encounter Visit Diagnoses Not on filedocumented in this encounter Care Teams Associate Professor Of Literature Relationship Specialty Start Date End Date Keo Orozco APRN [address] [place] [address] PCP - General 09/30/10 09/29/11 documented as of this encounter
--- OUTSIDE RECORDS SUMMARY | 2024-05-19 12:56 | XMS_ITS | Encounter Summary ---
Author Organization [facility] [place] [address] Care Team Providers Care Administrative Office Manager Name Role Phone Dom Kennedy MD Primary Care Provider [phone] Encounter Details Date Type Department Care Team (Late st Contact Info) Description 12/10/2011 Abstract [facility] Information Services [address] [place] [address] Provider, His [place] MD Social History Tobacco [...] 1:00 PM EDT Office Visit Urology at [facility] [place] [address] Luz Elena Fuentes APRN [facility] [place] [address] documented as of this encounter Procedures Procedure [...] ORDERABL ES Performing Organization Address City/State/ZIP Co ut Phone Number [facility] RESULT CONVERSION documented in this encounter Visit Diagnoses Not on filedocumented in this encounter Care Teams Administrative Office Manager Relationship Specialty Start Date End Date Dom Kennedy MD PCP - General 12/28/16 documented as of this encounter
--- OUTSIDE RECORDS SUMMARY | 2024-05-19 12:56 | XMS_ITS | Encounter Summary ---
Author Organization [facility] Address [facility] [place] [address] Care Team Providers Care Finishing Tunnel Operator Name Role Phone Michael Mims MD Primary Care Provider [phone] Encounter Details Date Type Department Care Team (Late st Contact Info) Description 04/05/2012 3:30 PM EDT Office Visit [facility] [address] [place] [address] David Holliday, PhD [address] [place] [address] Social History Tobacco Use Types Packs/Day Years [...] Urology at [facility] [place] [address] Luz Elena Fuentes APRN [facility] [place] [address] documented as of this encounter Visit Diagnoses Not on filedocumented in this encounter Care Teams Finishing Tunnel Operator Relationship Specialty Start Date End Date Michael Mims MD [address] [place] [address] PCP - General 10/11/11 03/21/14 documented as of this encounter
--- OUTSIDE RECORDS SUMMARY | 2024-05-19 12:56 | XMS_ITS | Encounter Summary ---
Author Organization [facility] Address [facility] [place] [address] Care Team Providers Care President College Or University Name Role Phone Dom [place] MD Primary Care Provider [phone] Encounter Details Date Type Department Care Team (Late st Contact Info) Description 09/08/2020 11:20 AM EST Office Visit Urology at [facility] [place] [address] Estrella Hickman MD [facility] [address] Gross hematuria; Benign localized prostatic hyperplasia with [...] Referred him to Nadege Gaona NP at [place] [facility]. He had the following tests and [...] HEALTH: good REVIEW OF SYSTEMS: Negative. -- SEARCH ENGINE OPTIMIZATION SPECIALIST - No headaches or loss of [...] 1:00 PM EDT [place] [address] Luz Elena Fuentes APRN [facility] [address] documented as of this encounter Visit Diagnoses Diagnosis Gross hematuria Benign localized prostatic hyperplasia with lower urinary tract symptoms (LUTS) Benign localized hyperplasia of prostate with urinary obstruction and other lower urinary tract symptoms (LUTS) documented in this encounter Care Teams President College Or University Relationship Specialty Start Date End Date Dom Kennedy MD PCP - General 12/28/16 documented as of this encounter
--- OUTSIDE RECORDS SUMMARY | 2024-05-19 12:56 | XMS_ITS | Encounter Summary ---
Author Organization [facility] Address [facility] [place] [address] Care Team Providers Care Varnishing Unit Tool Setter Name Role Phone Dom [place] MD Primary Care Provider [phone] Reason for Visit * Consultation (Routine) - Closed Specialty Diagnoses / Procedures Referred By Portia stuart Referred To Contact Urology Diagnoses GROSS HEMATURIA Dom Kennedy MD [address] [place] [address] [place] [address] [facility] [place] [address] Referral ID Status Reason Start Date Expiration Date Visits Re quested Visits Authorized [id number] Closed 05/13/2020 05/13/2021 1 1 Encounter Details Date Type Department Care Team (Late st Contact Info) Description 05/28/2020 8:00 AM EDT [place] [address] Estrella Hickman MD [facility] [place] [address] Gross hematuria Social History Tobacco Use Types [...] Referred him to Nadege Gaona NP at [place] [facility]. He had the following tests and [...] HEALTH: good REVIEW OF SYSTEMS: Negative. -- C.O.D. BILLER - No headaches or loss of consciousness [...] 1:00 PM EDT Office [place] [address] Luz Elena Fuentes APRN [facility] [place] [address] documented as of this encounter Visit Diagnoses Diagnosis Gross hematuria documented in this encounter Care Teams Varnishing Unit Tool Setter Relationship Specialty Start Date End Date Dom [place] MD PCP - General 12/28/16 documented as of this encounter
--- OUTSIDE RECORDS SUMMARY | 2024-05-19 12:56 | XMS_ITS | Encounter Summary ---
Author Organization [facility] Address [facility] [place] [address] Care Team Providers Care Avionics Technician Name Role Phone Michael Mims MD Primary Care Provider [phone] Encounter Details Date Type Department Care Team (Late st Contact Info) Description 01/19/2012 1:30 PM EDT Follow-Up [facility] [address] [place] [address] Ramirez Ahuja MD [address] [place] [address] Social History Tobacco Use Types Packs/Day Years [...] 1:00 PM EDT Office [place] [address] Luz Elena Fuentes APRN [facility] [place] [address] documented as of this encounter Visit Diagnoses Not on filedocumented in this encounter Care Teams Avionics Technician Relationship Specialty Start Date End Date Michael Mims MD [address] [address] PCP - General 10/11/11 03/21/14 documented as of this encounter
--- OUTSIDE RECORDS SUMMARY | 2024-05-19 12:56 | XMS_ITS | Encounter Summary ---
[place] [address] Care Team Providers Care Internet Salesperson Name Role Phone Dom Kennedy MD Primary Care Provider [phone] Encounter Details Date Type Department Care Team (Late st Contact Info) Description 12/16/2010 [place] [address] Unknown None Social History Tobacco Use Types [...] 1:00 PM EDT [place] [address] Luz Elena Fuentes APRN [facility] [address] documented as of this encounter Procedures Procedure [...] EXAMINATION: ??CT ??7991 - CT CHEST W/CONTRAST ??[address] DIAGNOSIS: ?MORBID OBESITY, GERD, DIABETES REASON: ? [...] EXAMINATION: CT 7991 - CT CHEST W/CONTRAST [address]90 DIAGNOSIS: MORBID OBESITY, GERD, DIABETES REASON: elevated [...] on filedocumented in this encounter Care Teams Internet Salesperson Relationship Specialty Start Date End Date Dom [place] MD PCP - General 12/28/16 documented as of this encounter
--- OUTSIDE RECORDS SUMMARY | 2024-05-19 12:56 | XMS_ITS | Encounter Summary ---
Author Organization [facility] Address [facility] [place] [address] Care Team Providers Care Training Program Developer Name Role Phone Michael Mims MD Primary Care Provider [phone] Encounter Details Date Type Department Care Team (Late st Contact Info) Description 02/23/2012 11:00 AM EDT Office Visit [facility] [address] [place] [address] David Holliday, PhD [address] [place] [address] Social History Tobacco Use Types Packs/Day Years [...] 1:00 PM EDT Office [place] [address] Luz Elena Fuentes APRN [facility] [place] [address] documented as of this encounter Visit Diagnoses Not on filedocumented in this encounter Care Teams Training Program Developer Relationship Specialty Start Date End Date Michael Mims MD [address] [place] [address] PCP - General 10/11/11 03/21/14 documented as of this encounter
--- OUTSIDE RECORDS SUMMARY | 2024-05-19 12:56 | XMS_ITS | Encounter Summary ---
Author Organization [facility] Address [facility] [place] [address] Care Team Providers Care Agent Telegrapher Name Role Phone Keo Orozco APRN Primary Care Provider Encounter Details Date Type Department Care Team (Late st Contact Info) Description 02/19/2011 9:45 AM EDT Office Visit [address] [address] Keo Orozco APRN [address] [place] [address] Social History Tobacco Use Types Packs/Day Years [...] 1:00 PM EDT Office Visit Urology at [facility] [place] [address] Luz Elena Fuentes APRN [facility] [place] [address] documented as of this encounter Visit Diagnoses Not on filedocumented in this encounter Care Teams Agent Telegrapher Relationship Specialty Start Date End Date Keo Orozco APRN [address] [place] [address] PCP - General 09/30/10 09/29/11 documented as of this encounter
--- OUTSIDE RECORDS SUMMARY | 2024-05-19 12:56 | XMS_ITS | Encounter Summary ---
Author Organization [facility] [place] [address] Care Team Providers Care Manager Field Sales Name Role Phone Keo Orozco APRN Primary Care Provider Encounter Details Date Type Department Care Team (Late st Contact Info) Description 02/19/2011 11:00 AM EDT Office Visit [address] [phone] Social History Tobacco Use Types Packs/Day Years [...] 1:00 PM EDT Office [place] [address] [facility] [place] [address] documented as of this encounter Visit Diagnoses Not on filedocumented in this encounter Care Teams Manager Field Sales Relationship Specialty Start Date End Date Keo Orozco APRN [address] [place] [address] PCP - General 09/30/10 09/29/11 documented as of this encounter
--- OUTSIDE RECORDS SUMMARY | 2024-05-19 12:56 | XMS_ITS | Encounter Summary ---
Author Organization [facility] [place] [address] Care Team Providers Care Route Agent Name Role Phone Dom Kennedy MD Primary Care Provider [phone] Encounter Details Date Type Department Care Team (Late st Contact Info) Description 09/02/2020 [place] [address] Ana Maria Medina LNA Social History Tobacco [...] 1:00 PM EDT Office [place] [phone] Luz Elena Fuentes APRN [facility] [place] [address] documented as of this encounter Visit Diagnoses Not on filedocumented in this encounter Care Teams Route Agent Relationship Specialty Start Date End Date Dom Kennedy MD PCP - General 12/28/16 documented as of this encounter
--- OUTSIDE RECORDS SUMMARY | 2024-05-19 12:56 | XMS_ITS | Encounter Summary ---
Author Organization [facility] Address [facility] [place] [address] Care Team Providers Care Churn Operator Name Role Phone Michael Mims MD Primary Care Provider [phone] Encounter Details Date Type Department Care Team (Late st Contact Info) Description 11/10/2012 10:45 AM EDT Follow-Up [facility] [address] [place] [phone] Ramirez Ahuja MD [address] [place] [address] Social History Tobacco Use Types Packs/Day Years [...] 1:00 PM EDT [place] [address] Luz Elena Fuentes APRN [facility] [place] [address] documented as of this encounter Visit Diagnoses Not on filedocumented in this encounter Care Teams Churn Operator Relationship Specialty Start Date End Date Michael Mims MD [address] [address] PCP - General 10/11/11 03/21/14 documented as of this encounter
--- OUTSIDE RECORDS SUMMARY | 2024-05-19 12:56 | XMS_ITS | Encounter Summary ---
Author Organization [facility] Address [facility] [place] [address] Care Team Providers Care Spring Coiler Name Role Phone Ralph Ellison MD Primary Care Provider Encounter Details Date Type Department Care Team (Late st Contact Info) Description 12/05/2015 10:00 AM EDT Office Visit General [facility] [place] [address] [place] [phone] Keo Cardoso MD [address] [place] [address] Social History Tobacco Use Types Packs/Day Years [...] PM EDT Office Visit Urology at [facility] [place] [address] Luz Elena Fuentes APRN [facility] [place] [address] documented as of this encounter Visit Diagnoses Not on filedocumented in this encounter Care Teams Spring Coiler Relationship Specialty Start Date End Date Ralph Ellison MD [facility] [address] [place] [address] PCP - General General Internal Medicine 09/05/1512/13 documented as of this encounter
--- OUTSIDE RECORDS SUMMARY | 2024-05-19 12:56 | XMS_ITS | Encounter Summary ---
Author Organization [facility] Address [facility] [place] [address] Care Team Providers Care School Speech Language Pathologist Name Role Phone Michael Mims MD Primary Care Provider [phone] Encounter Details Date Type Department Care Team (Late st Contact Info) Description 03/16/2012 11:00 AM EDT Office Visit [facility] [address] [place] [phone] David Holliday, PhD [address] [place] [address] Social History Tobacco Use Types Packs/Day Years [...] 1:00 PM EDT Office [place] [address] Luz Elena Fuentes APRN [facility] [place] [address] documented as of this encounter Visit Diagnoses Not on filedocumented in this encounter Care Teams School Speech Language Pathologist Relationship Specialty Start Date End Date Michael Mims MD [address] [place] [address] PCP - General 10/11/11 03/21/14 documented as of this encounter
--- OUTSIDE RECORDS SUMMARY | 2024-05-19 12:56 | XMS_ITS | Encounter Summary ---
Author Organization [facility] [place] [address] Care Team Providers Care Customer Experience Leader Name Role Phone Michael Mims MD Primary Care Provider [phone] Encounter Details Date Type Department Care Team (Late st Contact Info) Description 01/04/2012 12:00 PM EDT Laboratory Appointment [address] [phone] Social History Tobacco Use Types Packs/Day Years [...] 1:00 PM EDT [place] [address] Luz Elena Fuentes APRN [facility] [place] [address] documented as of this encounter Visit Diagnoses Not on filedocumented in this encounter Care Teams Customer Experience Leader Relationship Specialty Start Date End Date Michael Mims MD [address] [place] [address] PCP - General 10/11/11 03/21/14 documented as of this encounter
--- OUTSIDE RECORDS SUMMARY | 2024-05-19 12:56 | XMS_ITS | Encounter Summary ---
Author Organization [facility] Address [facility] [place] [address] Care Team Providers Care Wire Tester Name Role Phone Dom Kennedy MD Primary Care Provider Reason for Visit * Consultation (Routine) - Closed Specialty Diagnoses / Procedures Referred By Contsue t Referred To Contact Endocrinology Diagnoses Type 2 diabetes mellitus without complications Essential (primary) hypertension Hyperlipidemia, unspecified Dom Kennedy MD [address] [place] [address] [place] [address] Td Blanco MD [facility] [place] [address] Referral ID Status Reason Start Date Expiration Date Visits Re quested Visits Authorized [id number] Closed 12/25/2020 12/25/2021 1 1 Encounter Details Date Type Department Care Team (Latest Contact Info) Description 01/29/2021 10:00 AM EDT TH Visit (TeleHealth) [place] [address] Td Blanco MD [facility] [place] [address] Type 2 diabetes mellitus with hyperglycemia, with [...] by Oksana Ambriz as part of the [facility] Diabetes Outreach program Pre-visit notes: Patient [...] treatment Last Eye Appointment: Aug 2020, 1x/year [facility]. Early signs of cataracts. 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 Socializes, limited by knee [...] 3 x a year _x__ consultation with endocrinology/4 h youth development specialist- 1-2 times a year ___ consultation with asthma educator 2 times per year ___ consultation [...] 1:00 PM EDT Office [place] [address] Luz Elena Fuentes APRN [facility] [place] [address] documented as of this encounter Visit Diagnoses Diagnosis Type 2 diabetes mellitus with hyperglycemia, with long-term current use of insulin documented in this encounter Care Teams Wire Tester Relationship Specialty Start Date End Date Dom Kennedy MD PCP - General 12/28/16 documented as of this encounter
--- OUTSIDE RECORDS SUMMARY | 2024-05-19 12:56 | XMS_ITS | Encounter Summary ---
Author Organization [facility] [place] [address] Care Team Providers Care Medical Technologist Prn Name Role Phone Keo Orozco APRN Primary Care Provider Encounter Details Date Type Department Care Team (Late st Contact Info) Description 02/11/2011 9:15 AM EDT Follow-Up [facility] [address] [place] [phone] Ramirez Ahuja MD [address] [place] [address] Social History Tobacco Use Types Packs/Day Years [...] 1:00 PM EDT [place] [address] Luz Elena Fuentes APRN [facility] [place] [address] documented as of this encounter Visit Diagnoses Not on filedocumented in this encounter Care Teams Medical Technologist Prn Relationship Specialty Start Date End Date Keo Orozco APRN [address] [place] [address] PCP - General 09/30/10 09/29/11 documented as of this encounter
--- OUTSIDE RECORDS SUMMARY | 2024-05-19 12:56 | XMS_ITS | Encounter Summary ---
Author Organization [facility] Address [facility] [address] Care Team Providers Care Coding Auditor Name Role Phone Keo Orozco APRN Primary Care Provider Encounter Details Date Type Department Care Team (Late st Contact Info) Description 11/12/2010 9:15 AM EDT Office Visit [facility] [address] [place] [phone] Ramirez Ahuja MD [address] [place] [address] Social History Tobacco Use Types Packs/Day Years [...] 1:00 PM EDT Office Visit Urology at [facility] [place] [address] Luz Elena Fuentes APRN [facility] [place] [address] documented as of this encounter Visit Diagnoses Not on filedocumented in this encounter Care Teams Coding Auditor Relationship Specialty Start Date End Date Keo Orozco APRN [address] [place] [address] PCP - General 09/30/10 09/29/11 documented as of this encounter
--- OUTSIDE RECORDS SUMMARY | 2024-05-19 12:56 | XMS_ITS | Encounter Summary ---
Author Organization [facility] Address [facility] [address] Care Team Providers Care Crane Assembler Name Role Phone Michael Mims MD Primary Care Provider [phone] Encounter Details Date Type Department Care Team (Late st Contact Info) Description 12/15/2011 8:00 AM EDT Follow-Up [address] [address] Janie Saravia PA [address] [place] [address] Social History Tobacco Use Types Packs/Day Years [...] 1:00 PM EDT Office Visit Urology at [facility] [place] [address] Luz Elena Fuentes APRN [facility] [place] [address] documented as of this encounter Visit Diagnoses Not on filedocumented in this encounter Care Teams Crane Assembler Relationship Specialty Start Date End Date Michael Mims MD [address] [place] [address] PCP - General 10/11/11 03/21/14 documented as of this encounter
--- OUTSIDE RECORDS SUMMARY | 2024-05-19 12:56 | XMS_ITS | Encounter Summary ---
Author [place] [address] Care Team Providers Care Marketing Reps Sports [employer] Entertainment Name Role Phone Michael Mims MD Primary Care Provider [phone] Encounter Details Date Type Department Care Team (Late st Contact Info) Description 12/10/2011 9:00 AM EDT Laboratory Appointment [address] [phone] Social History Tobacco Use Types Packs/Day Years [...] 1:00 PM EDT [place] [address] Luz Elena Fuentes APRN [facility] [place] [address] documented as of this encounter Visit Diagnoses Not on filedocumented in this encounter Care Teams Marketing [employer] Relationship Specialty Start Date End Date Michael Mims MD [address] [place] [address] PCP - General 10/11/11 03/21/14 documented as of this encounter
--- OUTSIDE RECORDS SUMMARY | 2024-05-19 12:56 | XMS_ITS | Encounter Summary ---
Author Organization [facility] Address [facility] [place] [address] Care Team Providers Care Databases Computer Consultant Name Role Phone Dom Kennedy MD Primary Care Provider [phone] Encounter Details Date Type Department Care Team (Late st Contact Info) Description 05/28/2020 11:00 AM EDT Office Visit Urology at [facility] [place] [address] Estrella Hickman MD [facility] [place] [address] Lower urinary tract symptoms (LUTS); Gross hematuria [...] and cola. You do not need to [id number] ounces of water today. Urination: You will likely have a small amount of blood in your urine for the next several days. This is normal; however, if you are passing large amounts of blood clots or are unable to void please call our office at [phone] before 5PM or [phone] after hours. Please call if: * you have copious blood in your urine * fevers greater than 101.3 F * you are unable to void The number for questions is [phone] before 5 PM weekdays and [phone] after 5 PM and weekends. Follow-up: With [...] 1:00 PM EDT [place] [address] Luz Elena Fuentes APRN [facility] [place] [address] documented as of this encounter Procedures Procedure Name Priority Date/Time Associated Diagnosis Comments NON-HOSPICE MASSAGE THERAPIST FINAL REPORT Routine 05/28/2020 12:31 PM EDT CYTOPATHOLOGY NON-GYNECOLOGICAL Routine 05/28/2020 12:31 PM EDT Gross hematuria CYSTOSCOPY Routine 05/28/2020 11:00 AM EDT Lower urinary tract symptoms (LUTS) documented in this encounter Results * Non-Habitat Biologist Final Report (05/28/2020 12:31 PM EDT) Diagnosis Discussion [id number] ? Location: The signing pathologist has (i) examined the relevant preparation(s) for the specimen(s) and (ii) rendered or confirmed the diagnosis(es). . ? Non-Habitat Biologist Final DIAGNOSIS Atypical Urothelial Cells See discussion. Electronically signed by: ??Cyndi BRASWELL, Miguel Yuan Verified: ??05/30/2020 ?Cytopathologis t Performed at: ??-[facility] Dept. of Pathology, [place], [place] DISCUSSION Urine, voided: Atypical single urothelial cells, some showing degenerative changes, present. Reference: Prosper MENDEZ, ?? Sarah ORTIZ, Cuong ??DFI. The [employer]ha System for Reporting Urinary Cytology. [place]: Soni; 2016. CLINICAL INFORMATION Specimen Source : Urine, voided Pertinent Clinical Data and Significant Therapy: Hematuria Clinical Impression : Gross hematuria Pertinent Radiologic Findings ??: (not provided) Gross Description: Received ??fresh, approximately 65 mL total volume of ?? clear, yellow fluid. Total Preparation: Liquid-Based Prep 1. 05/30/2020 1:11 PM EDT [facility] URINE SPECIMEN OBTAINED BY CLEAN CATCH PROCEDURE / Unknown 05/28/2020 12:31 PM EDT 05/28/2020 12:31 PM EDT Estrella Hickman MD PATHOLOGY/CYTOL OGY ORDERABLES Performing Organization Address City/[facility] Co de Phone Number [facility] [place] [address] * Cytopathology Non-Gynecological (05/28/2020 12:31 PM EDT) AP Specimen 05/28/2020 12:3 1 PM EDT 05/28/2020 12:31 PM EDT Narrative [facility] - 05/28/2020 12:31 PM EDT Specimen requisition ordered. ??Separate Pathology report to follow Estrella Hickman MD PATHOLOGY/CYTOL OGY ORDERABLES Performing Organization Address [facility] [place] [address] * Cystoscopy - Today (05/28/2020 11:00 AM [...] hematuria documented in this encounter Care Teams Databases Computer Consultant Relationship Specialty Start Date End Date Dom Kennedy MD PCP - General 12/28/16 documented as of this encounter
--- OUTSIDE RECORDS SUMMARY | 2024-05-19 12:56 | XMS_ITS | Encounter Summary ---
Author Organization [facility] [place] [address] Care Team Providers Care Cardiac Nurse Practitioner Name Role Phone Dom Kennedy MD Primary Care Provider [phone] Encounter Details Date Type Department Care Team (Late st Contact Info) Description 08/21/2010 Abstract [facility] Information Services [address] [place] [phone] Provider, His [place] MD Social History Tobacco [...] Center, [place] [place] [address] Luz Elena Fuentes APRN [facility] [place] [address] documented as of this encounter Procedures Procedure Name Priority Date/Time Associated Diagnosis Comments PSA (ULTRASENSITIVE) Routine 08/21/2010 10:52 AM EST documented in this encounter Results * (ABNORMAL) PSA (08/21/2010 10:52 AM EST) PSA Screen 0.42(Exter nal Lab) 0.00 - 4.0 ng/ml [facility] RESULT CONVERSION Comment: Sourced from Connor Wright 08/21/2010 10:5 2 AM EST His [place] Provider CHEMISTRY ORDERABL ES [facility] LAB RESULT CONVERSION documented in this encounter Visit Diagnoses Not on filedocumented in this encounter Care Teams Cardiac Nurse Practitioner Relationship Specialty Start Date End Date Dom Kennedy MD PCP - General 12/28/16 documented as of this encounter
--- OUTSIDE RECORDS SUMMARY | 2024-05-19 12:56 | XMS_ITS | Encounter Summary ---
[place] [address] Care Team Providers Care Accounting Analyst Name Role Phone Aftab Coles MD, Dom Conrad Primary Care Provider [phone] Encounter Details Date Type Department Care Team (Late st Contact Info) Description 08/21/2010 6:00 AM EST Procedure visit [address] [phone] Social History Tobacco Use Types Packs/Day Years [...] 1:00 PM EDT [place] [address] Luz Elena Fuentes APRN [facility] [place] [address] documented as of this encounter Visit Diagnoses Not on filedocumented in this encounter Care Teams Accounting Analyst Relationship Specialty Start Date End Date Dom Ugalde Jr., MD PCP - General 08/11/10 09/03/10 documented as of this encounter
--- OUTSIDE RECORDS SUMMARY | 2024-05-19 12:56 | XMS_ITS | Encounter Summary ---
Author Organization [facility] [place] [address] Care Team Providers Care Movement Assembly Final Inspector Name Role Phone Dom Kennedy MD Primary Care Provider [phone] Encounter Details Date Type Department Care Team (Late st Contact Info) Description 02/19/2011 [place] [address] Keo Orozco, SURVEY ENGINEER [address] [place] [address] Social History Tobacco Use Types Packs/Day Years [...] 1:00 PM EDT [place] [address] Luz Elena Fuentes, [facility] [place] [address] documented as of this encounter Procedures Procedure [...] Report EXAMINATION: ??DHK 8600 - KNEE (BILATERAL,3VWS) ?[id number] DIAGNOSIS: ?DHK X-RAY JOINT PAIN-LOWER LEG REASON: [...] Report EXAMINATION: K 8600 - KNEE (BILATERAL,3VWS) [id number] DIAGNOSIS: K X-RAY JOINT PAIN-LOWER LEG REASON: [...] on filedocumented in this encounter Care Teams Movement Assembly Final Inspector Relationship Specialty Start Date End Date Dom Kennedy MD PCP - General 12/28/16 documented as of this encounter
--- OUTSIDE RECORDS SUMMARY | 2024-05-19 12:56 | XMS_ITS | Encounter Summary ---
Author Organization [facility] [place] [address] Care Team Providers Care Compliance Engineer Products Name Role Phone Keo Orozco APRN Primary Care Provider Encounter Details Date Type Department Care Team (Late st Contact Info) Description 03/08/2011 3:00 PM EDT Office Visit [facility] [address] [place] [phone] Lawson Mixon III, MD [address] [place] [address] Social History Tobacco Use Types Packs/Day Years [...] 1:00 PM EDT [place] [address] Luz Elena Fuentes APRN [facility] [place] [address] documented as of this encounter Visit Diagnoses Not on filedocumented in this encounter Care Teams Compliance Engineer Products Relationship Specialty Start Date End Date Keo Orozco APRN [address] [place] [address] PCP - General 09/30/10 09/29/11 documented as of this encounter
--- OUTSIDE RECORDS SUMMARY | 2024-05-19 12:56 | XMS_ITS | Encounter Summary ---
Author Organization [facility] Address [facility] [place] [address] Care Team Providers Care Leader Writer Name Role Phone Aftab Coles MD, Dom Conrad Primary Care Provider [phone] Encounter Details Date Type Department Care Team (Late st Contact Info) Description 09/09/2010 4:15 PM EST Office Visit [address] [phone] Keo Orozco APRN [address] [place] [address] Social History Tobacco Use Types Packs/Day Years [...] 1:00 PM EDT [place] [address] [facility] [place] [address] documented as of this encounter Visit Diagnoses Not on filedocumented in this encounter Care Teams Leader Writer Relationship Specialty Start Date End Date Dom Ugalde Jr., MD PCP - General 09/09/10 09/29/10 documented as of this encounter
--- OUTSIDE RECORDS SUMMARY | 2024-05-19 12:56 | XMS_ITS | Encounter Summary ---
Author [facility] [place] [address] Care Team Providers Care Skilled Labor Name Role Phone Dom Kennedy MD Primary Care Provider [phone] Reason for Visit * Reason Onset Date Comments Prior Authorization 01/30/2021 Encounter Details Date Type Department Care Team (Late st Contact Info) Description 01/30/2021 [place] [phone] Faiza Armijo Prior Authorization Social History Tobacco [...] DM Health plan: SAM ([facility]) Authorizing hotel services sales representative name: Nieves Sent to health plan on: 02/10/21 Health plan decision: Approved Quantity approved: Authorization number: [id number] Start date: 01/11/21 End date: 02/10/22 documented in this encounter Plan of Treatment Upcoming Encounters Date Type Department Care Team (Late st Contact Info) Description 05/21/2024 1:00 PM EDT [place] [address] Luz Elena Fuentes APRN [facility] [place] [address] documented as of this encounter Visit Diagnoses Not on filedocumented in this encounter Care Teams Skilled Labor Relationship Specialty Start Date End Date Dom Kennedy MD PCP - General 12/28/16 documented as of this encounter
--- OUTSIDE RECORDS SUMMARY | 2024-05-19 12:56 | XMS_ITS | Encounter Summary ---
Author Organization Formerly [facility] [place] [address] Care Team Providers Care Tours Captain Name Role Phone Dom Kennedy MD Primary Care Provider [phone] Reason for Visit * Reason Comments Follow-up Encounter Details Date Type Department Care Team ([facility] st Contact Info) Description 03/17/2020 11:30 AM EDT Office Visit General Surgery at [address] [phone] oDm Richardson MD [address] [place] [address] [place] [address] Encounter for adjustment of gastric [...] band placed 12/15/[address]Donald Ahuja at [facility]. Preoperative weight: #250 Last adjustment: 12/05/[address] Keo Cardoso at [facility]. 0.25 mL's removed for yellow zone symptomatology. [...] PSH/Diagnostic History: Last colonoscopy on file at [facility] July 2017 colonoscopy with polyp removals. Seen at [facility] August 2023 lumbar blocks relieve back pain. ?? Nuclear stress test [facility] in 2014 reportedly negative ?? Treadmill stress test [facility] August 21, [address] [...] He is and lives with his in [place], [place]. 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 He has never smoked. He drinks a [...] 1:00 PM EDT [place] [address] Luz Elena Fuentes APRN [facility] [place] [address] documented as of this encounter Visit Diagnoses Diagnosis Encounter for adjustment of gastric lap band Fitting and adjustment of gastric lap band Hx of laparoscopic gastric banding Bariatric surgery status documented in this encounter Care Teams Tours Captain Relationship Specialty Start Date End Date Dom Kennedy MD PCP - General 12/28/16 documented as of this encounter
--- OUTSIDE RECORDS SUMMARY | 2024-05-19 12:56 | XMS_ITS | Encounter Summary ---
Author Organization [facility] Address [facility] [place] [address] Care Team Providers Care Eating Disorder Psychologist Name Role Phone Keo Orozco APRN Primary Care Provider Encounter Details Date Type Department Care Team (Late st Contact Info) Description 06/21/2011 2:00 PM EST Follow-Up [facility] [address] [place] [phone] Ramirez Ahuja MD [address] [place] [address] Social History Tobacco Use Types Packs/Day Years [...] Visit Urology at [facility] [place] [address] Luz Elena Fuentes APRN [facility] [place] [address] documented as of this encounter Visit Diagnoses Not on filedocumented in this encounter Care Teams Eating Disorder Psychologist Relationship Specialty Start Date End Date Keo Orozco APRN [address] [place] [address] PCP - General 09/30/10 09/29/11 documented as of this encounter
--- OUTSIDE RECORDS SUMMARY | 2024-05-19 12:56 | XMS_ITS | Encounter Summary ---
Author Organization [facility] [place] [address] Care Team Providers Care Pipe Foreman Name Role Phone Keo Orozco APRN Primary Care Provider Encounter Details Date Type Department Care Team (Late st Contact Info) Description 03/05/2011 10:00 AM EDT Office Visit [facility] [place] [address] [place] [phone] Damon Gutierres MD [address] [place] [address] Social History Tobacco Use Types Packs/Day Years [...] Urology at [facility] [place] [address] Luz Elena Fuentes APRN [facility] [place] [address] documented as of this encounter Visit Diagnoses Not on filedocumented in this encounter Care Teams Pipe Foreman Relationship Specialty Start Date End Date Keo Orozco APRN [address] [place] [address] PCP - General 09/30/10 09/29/11 documented as of this encounter
--- OUTSIDE RECORDS SUMMARY | 2024-05-19 12:56 | XMS_ITS | Encounter Summary ---
[place] [address] Care Team Providers Care Military Analyst Name Role Phone Dom Kennedy MD Primary Care Provider [phone] Encounter Details Date Type Department Care Team (Late st Contact Info) Description 12/16/2010 [place] [phone] Unknown None Social History Tobacco Use Types [...] 1:00 PM EDT Office [place] [phone] Luz Elena Fuentes APRN [facility] [place] [address] documented as of this encounter Procedures Procedure [...] EXAMINATION: ??RAD 7422 - BARIUM SWALLOW (ESOPHAGUS) [id number] DIAGNOSIS: ?MORBID OBESITY, GERD, DIABETES REASON: ? Post Lap. Gastric Band RESULT: ? Clinical Indication: ??Post lap band procedure. FINDINGS: ?The preliminary seater grinder film demonstrates characteristic positioning of the metallic [...] EXAMINATION: RAD 7422 - BARIUM SWALLOW (ESOPHAGUS) [id number] DIAGNOSIS: MORBID OBESITY, GERD, DIABETES REASON: Post Lap. Gastric Band RESULT: Clinical Indication: Post lap band procedure. FINDINGS: The preliminary seater grinder film demonstrates characteristic positioning of the metallic [...] on filedocumented in this encounter Care Teams Military Analyst Relationship Specialty Start Date End Date Dom Kennedy MD PCP - General 12/28/16 documented as of this encounter
--- OUTSIDE RECORDS SUMMARY | 2024-05-19 12:56 | XMS_ITS | Encounter Summary ---
Author Organization [facility] [place] [address] Care Team Providers Care Creosoting Engineer Name Role Phone Dom Kennedy MD Primary Care Provider [phone] Encounter Details Date Type Department Care Team (Late st Contact Info) Description 01/04/2012 Abstract [facility] Information Services [address] [place] [phone] Provider, His [place] MD Social History Tobacco [...] 1:00 PM EDT Office Visit Urology at [place] [address] Luz Elena Fuentes APRN [facility] [place] [address] documented as of this encounter Procedures Procedure Name Priority Date/Time Associated Diagnosis Comments PSA (ULTRASENSITIVE) Routine 01/04/2012 3:00 PM EDT documented in this encounter Results * (ABNORMAL) PSA (01/04/2012 3:00 PM EDT) PSA Screen 0.80(Exter nal Lab) 0.00 - 4.0 ng/ml [facility] RESULT CONVERSION Comment: Sourced from [facility] Conversion 01/04/2012 3:00 PM EDT His [place] Provider CHEMISTRY ORDERABL ES Performing Organization Address City/State/ZIP Co ne Phone Number [facility] RESULT CONVERSION documented in this encounter Visit Diagnoses Not on filedocumented in this encounter Care Teams Creosoting Engineer Relationship Specialty Start Date End Date Dom Kennedy MD PCP - General 12/28/16 documented as of this encounter
--- OUTSIDE RECORDS SUMMARY | 2024-05-19 12:56 | XMS_ITS | Encounter Summary ---
Author Organization [facility] Address [facility] [place] [address] Care Team Providers Care Form Builder Helper Name Role Phone Keo Orozco APRN Primary Care Provider Encounter Details Date Type Department Care Team (Late st Contact Info) Description 06/21/2011 1:00 PM EST Follow-Up [address] [phone] Janie Saravia PA [address] [place] [address] Social History Tobacco Use Types Packs/Day Years [...] 1:00 PM EDT Office Visit Urology at [facility] [place] [address] Luz Elena Fuentes APRN [facility] [place] [address] documented as of this encounter Visit Diagnoses Not on filedocumented in this encounter Care Teams Form Builder Helper Relationship Specialty Start Date End Date Keo Orozco APRN [address] [place] [address] PCP - General 09/30/10 09/29/11 documented as of this encounter
--- OUTSIDE RECORDS SUMMARY | 2024-05-19 12:56 | XMS_ITS | Encounter Summary ---
Author Organization [facility] [place] [address] Care Team Providers Care Contract Writer Name Role Phone Keo Orozco APRN Primary Care Provider Encounter Details Date Type Department Care Team (Late st Contact Info) Description 02/01/2011 11:30 AM EDT Follow-Up [facility] [address] [place] [phone] Ramirez Ahuja MD [address] [place] [address] Social History Tobacco Use Types Packs/Day Years [...] 1:00 PM EDT Office [place] [address] Luz Elena Fuentes APRN [facility] [place] [address] documented as of this encounter Visit Diagnoses Not on filedocumented in this encounter Care Teams Contract Writer Relationship Specialty Start Date End Date Keo Orozco APRN [address] [place] [address] PCP - General 09/30/10 09/29/11 documented as of this encounter
--- OUTSIDE RECORDS SUMMARY | 2024-05-19 12:56 | XMS_ITS | Encounter Summary ---
Author Organization [facility] Address [facility] [place] [address] Care Team Providers Care Baby Registry Sales Consultant Name Role Phone Michael Mims MD Primary Care Provider [phone] Encounter Details Date Type Department Care Team (Late st Contact Info) Description 10/14/2011 2:00 PM EST Follow-Up [place] [facility] [address] [place] [phone] Ramirez Ahuja MD [address] [place] [address] Social History Tobacco Use Types Packs/Day Years [...] 1:00 PM EDT [place] [address] Luz Elena Fuentes APRN [facility] [place] [address] documented as of this encounter Visit Diagnoses Not on filedocumented in this encounter Care Teams Baby Registry Sales Consultant Relationship Specialty Start Date End Date Michael Mims MD [address] [place] [address] PCP - General 10/11/11 03/21/14 documented as of this encounter
--- OUTSIDE RECORDS SUMMARY | 2024-05-19 12:56 | XMS_ITS | Encounter Summary ---
Author Organization [facility] [place] [address] Care Team Providers Care Patient Safety Manager Name Role Phone Keo Orozco APRN Primary Care Provider [phone] Encounter Details Date Type Department Care Team (Late st Contact Info) Description 06/21/2011 11:15 AM EST Laboratory Appointment [address] [address] Social History Tobacco Use Types [...] 1:00 PM EDT Office [place] [address] Luz Elena Fuentes APRN [facility] [place] [address] documented as of this encounter Visit Diagnoses Not on filedocumented in this encounter Care Teams Patient Safety Manager Relationship Specialty Start Date End Date Keo Orozco APRN [address] [place] [address] PCP - General 09/30/10 09/29/11 documented as of this encounter
--- OUTSIDE RECORDS SUMMARY | 2024-05-19 12:56 | XMS_ITS | Encounter Summary ---
Author Organization [facility] [place] [address] Care Team Providers Care Velvet Weaver Name Role Phone Keo Orozco APRN Primary Care Provider Encounter Details Date Type Department Care Team (Late st Contact Info) Description 02/19/2011 3:00 PM EDT Procedure visit [address] [phone] Radiology, [place] Social History Tobacco Use Types Packs/Day Years [...] 1:00 PM EDT [place] [address] Luz Elena Fuentes APRN [facility] [place] [address] documented as of this encounter Visit Diagnoses Not on filedocumented in this encounter Care Teams Velvet Weaver Relationship Specialty Start Date End Date Keo Orozco APRN [address] [place] [address] PCP - General 09/30/10 09/29/11 documented as of this encounter
--- OUTSIDE RECORDS SUMMARY | 2024-05-19 12:56 | XMS_ITS | Encounter Summary ---
Author Organization [facility] [place] [address] Care Team Providers Care Sternman Name Role Phone Keo Orozco APRN Primary Care Provider [phone] Encounter Details Date Type Department Care Team (Late st Contact Info) Description 12/30/2010 4:00 PM EDT Office Visit [facility] [address] [place] [address] Lorene Luna, RD [address] [place] [address] Social History Tobacco Use Types Packs/Day Years [...] 1:00 PM EDT Office [place] [address] Luz Elena Fuentes APRN [facility] [place] [address] documented as of this encounter Visit Diagnoses Not on filedocumented in this encounter Care Teams Sternman Relationship Specialty Start Date End Date Keo Orozco APRN [address] [place] [address] PCP - General 09/30/10 09/29/11 documented as of this encounter
--- OUTSIDE RECORDS SUMMARY | 2024-05-19 12:56 | XMS_ITS | Encounter Summary ---
[place] [address] Care Team Providers Care Gasoline Plant Operator Name Role Phone Aftab Coles MD, Dom Conrad Primary Care Provider [phone] Encounter Details Date Type Department Care Team (Late st Contact Info) Description 08/21/2010 4:00 AM EST Procedure visit [address] [phone] Social History Tobacco Use Types Packs/Day Years [...] PM EDT Office Visit [place] [address] Luz Elena Fuentes APRN [facility] [place] [address] documented as of this encounter Visit Diagnoses Not on filedocumented in this encounter Care Teams Gasoline Plant Operator Relationship Specialty Start Date End Date Dom Ugalde Jr., MD PCP - General 08/11/10 09/03/10 documented as of this encounter
--- OUTSIDE RECORDS SUMMARY | 2024-05-19 12:56 | XMS_ITS | Encounter Summary ---
Author Organization [facility] Address [facility] [place] [address] Care Team Providers Care Residential Program Worker Name Role Phone Ralph Ellison MD Primary Care Provider [phone] Reason for Referral * Diagnostic Test (Routine) - Closed Specialty Diagnoses / Procedures Referred By Contac t Referred To Contact Diagnoses Chest discomfort SOB (shortness of breath) Atypical chest pain Procedures Echocardiogram Stress (Treadmill) Adolfo Antonio MD [facility] [place] [address] [facility] [place] [place] [address] Referral ID Status Reason Start Date Expiration Date V isits Requested Visits Authorized [id number] Closed Specialty Service Requested 09/26/2015 11/25/2015 1 1 Reason for Visit * Diagnostic Test (Routine) - Closed Specialty Diagnoses / Procedures Referred By Contac t Referred To Contact Diagnoses Chest discomfort SOB (shortness of breath) Atypical chest pain Procedures Echocardiogram Stress (Treadmill) Adolfo Antonio MD [facility] [place] [address] [facility] [place] [address] Referral ID Status Reason Start Date Expiration Date V isits Requested Visits Authorized [id number] Closed Specialty Service Requested 09/26/2015 11/25/2015 1 1 Encounter Details Date Type Department Care Team (Latest Contact Info) Description 10/30/2015 9:00 AM EDT - 10/30/2015 11:59 PM EDT Hospital Encounter [place] [address] Adolfo Antonio MD [facility] [place] [address] Chest discomfort; SOB (shortness of breath); Atypical [...] 1:00 PM EDT Office [place] [address] Luz Elena Fuentes APRN [facility] [place] [address] documented as of this encounter Procedures Procedure [...] JOSEPH ? (Age): 1960(54y) Med Rec#: ? [id number] ?Sex: ?M ? Site Loc: ? [facility] ?Ht / Wt: ??177(cm)/95.01(k Pt. Loc: ?Echo Lab ?BSA: ?2.12 Study Date: ?? 10/30/2015 ?Pt. Type: Tape: ? Referring: ADOLFO ANTONIO Referring: Adolfo Antonio Reading: Nirmal Arroyo ([id number]) Inpatient Care Manager Rn: rGady Orosco Buyer Planner: Milagros Duke Interpreting Fellow: Gregor Schwarz ??([id number]) Interpreting Fellow: Madan Hu ([id number]) Interpreting Fellow: Albino Rice ([id number]) Diagnosis: *ICD-10-PCS Shortness of breath (R06.02) *ICD-10-PCS Other chest pain (R07.89) CPT Codes: *Stress Echo (02161) *Color Doppler (98117) *Doppler LTD (41383) *ECG Interpretation (95653) *Definity ([id number]) Stage ? BP ?HR ? Rest ?166/80 [...] E-wave Vmax ?0.5 ?m/sec ? MV deceleration [id number] ?msec ? MV A-wave Vmax ?0.6 ?m/sec [...] ?Normal ?Normal ? Mid-Inferoseptal ?Normal ?Normal ? [place]-Septal ? Normal ?Normal ? [place]-Anterior ? Normal ?Normal ? [place]-Lateral ?Normal ?Normal ? [place]-Inferior ? Normal ?Normal ? [place]-Tip ?Normal ?Normal ? This report has been electronically signed by: Nirmal Arroyo M.D. ? 10/30/2015 12:53:17 Images reviewed and interpretation verified [facility] Cardiac Ultrasound Laboratory Procedure Note Nirmal Arroyo MD - 10/30/2015 Procedure: Stress Echocardiogram Patient: CHIARA TORRES(Age): 1960(54y) Med Rec#: [id number] Sex: M Site Loc: [facility] Ht / Wt: 177(cm)/95.01(k Pt. Loc: Echo Lab BSA: 2.12 Study Date: 10/30/2015 Pt. Type: Tape: Referring: ADOLFO ANTONIO Referring: Adolfo Antonio Reading: Nirmal Arroyo ([id number]) Inpatient Care Manager Rn: Grady Orosco Buyer Planner: Milagros Duke Interpreting Fellow: Gregor Schwarz ([id number]) Interpreting Fellow: Madan Hu ([id number]) Interpreting Fellow: Albino Rice ([id number]) Diagnosis: *ICD-10-PCS Shortness of breath (R06.02) *ICD-10-PCS Other chest pain (R07.89) CPT Codes: *Stress Echo (42858) *Color Doppler (14865) *Doppler LTD (75725) *ECG Interpretation (94589) *Definity ([id number]) Stage BP HR Rest 166/80 86 Peak [...] MV E-wave Vmax 0.5 m/sec MV deceleration [id number] msec MV A-wave Vmax 0.6 m/sec MV [...] Normal Mid-Inferior Normal Normal Mid-Inferoseptal Normal Normal [place]-Septal Normal Normal [place]-Anterior Normal Normal [place]-Lateral Normal Normal [place]-Inferior Normal Normal [place]-Tip Normal Normal This report has been electronically signed by: Nirmal Arroyo M.D. 10/30/2015 12:53:17 Images reviewed and interpretation verified [facility] Cardiac Ultrasound Laboratory Adolfo Antonio MD ECHO [...] mLs documented in this encounter Care Teams Residential Program Worker Relationship Specialty Start Date End Date Ralph Ellison MD [facility] [address] [place] [address] PCP - General General Internal Medicine 09/05/1512/13 documented as of this encounter
--- OUTSIDE RECORDS SUMMARY | 2024-05-19 12:56 | XMS_ITS | Encounter Summary ---
Author Organization [facility] [place] [address] Care Team Providers Care Cantilever Crane Operator Name Role Phone Dom Kennedy MD Primary Care Provider [phone] Encounter Details Date Type Department Care Team (Late st Contact Info) Description 01/04/2012 Abstract [facility] Information Services [address] [place] [phone] Provider, His [place] MD Social History Tobacco [...] 1:00 PM EDT Office Visit Urology at [facility] [place] [address] Luz Elena Fuentes APRN [facility] [place] [address] documented as of this encounter Procedures Procedure [...] [place] Provider URINE ORDERABLES Performing Organization Address City/State/[facility] Co mn Phone Number [facility] RESULT CONVERSION documented in this encounter Visit Diagnoses Not on filedocumented in this encounter Care Teams Cantilever Crane Operator Relationship Specialty Start Date End Date Dom Kennedy MD PCP - General 12/28/16 documented as of this encounter
--- OUTSIDE RECORDS SUMMARY | 2024-05-19 12:56 | XMS_ITS | Encounter Summary ---
Author Organization [facility] [place] [address] Care Team Providers Care Legal Coordinator Name Role Phone Dom Kennedy MD Primary Care Provider [phone] Encounter Details Date Type Department Care Team (Late st Contact Info) Description 11/10/2012 [facility] Information Services [address] [facility] [place] [phone] Provider, His [place] Social History Tobacco [...] oz) 11/10/2012 10:45 AM EDT Sourced from [place] Conversion Height 175.3 cm (5' 9) 11/10/2012 10:4 5 AM EDT Sourced from [place] Conversion Body Mass Index 32.07 11/10/2012 10:45 AM EDT documented in this encounter Plan of Treatment Upcoming Encounters Date Type Department Care Team (Late st Contact Info) Description 05/21/2024 1:00 PM EDT [place] [address] Luz Elena Fuentes APRN [facility] [place] [address] documented as of this encounter Visit Diagnoses Not on filedocumented in this encounter Care Teams Legal Coordinator Relationship Specialty Start Date End Date Dom [place] MD PCP - General 12/28/16 documented as of this encounter
--- OUTSIDE RECORDS SUMMARY | 2024-05-19 12:56 | XMS_ITS | Encounter Summary ---
Author Organization [facility] [place] [address] Care Team Providers Care Software Tools Engineer Name Role Phone Ralph Ellison MD Primary Care Provider [phone] Reason for Referral * Diagnostic Test (Routine) - Closed Specialty Diagnoses / Procedures Referred By Contac t Referred To Contact Diagnoses Chest discomfort SOB (shortness of breath) Atypical chest pain Procedures Echocardiogram Stress (Treadmill) Adolfo Alejo MD [facility] [place] [address] [facility] [place] [address] Referral ID Status Reason Start Date Expiration Date V isits Requested Visits Authorized [id number] Closed Specialty Service Requested 09/26/2015 11/25/2015 1 1 Reason for Visit * Reason Comments Chest Pain * Consultation (SHERMAN) - Closed Specialty Diagnoses / Procedures Referred By Contac t Referred To Contact Cardiology Diagnoses positive cardiac stress test risk factors diabetes, hypertension and hyperlipidemia Ralph Ellison MD [facility] [address] [place] [address] [facility] Cardiology [address] [place] [phone] Referral ID Status Reason Start Date Expiration Date V isits Requested Visits Authorized [id number] Closed Consult, Test & Treat Connection [facility] 09/05/2015 09/04/2016 1 1 Encounter Details Date Type Department Care Team (Late st Contact Info) Description 09/11/2015 11:00 AM EST Office Visit Cardiology at [address] [place] [address] Adolfo Alejo MD [facility] [place] [address] Chest discomfort; SOB (shortness of breath); Atypical [...] from the original note were not included. [facility] ANTHONY Bui [address] CARDIOLOGY OUTPATIENT CONSULTATION [facility] Office Jefry Guadarrama [id number] 09/11/2015 REFERRING PROVIDER: Ralph Ellison CHIEF COMPLAINT: Chief Complaint Patient presents with ??? Chest Pain PROBLEM LIST Patient Active Problem List Diagnosis ??? Atypical chest pain ?? Nuclear stress test [facility] in 2015 reportedly negative ?? Treadmill stress test [facility] August 21, [address] [...] he had a nuclear stress test at [facility] which was reportedly negative. His [...] He is and lives with his in [place], [place]. 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 He has never smoked. He drinks a [...] via any of the following mechanisms: Email: documented in this encounter Miscellaneous Notes * Addendum Note - Arlyn Copeland - 09/11/2015 12:24 PM ESTAddended by: ARLYN COPELAND on: 09/11/2015 12:24 PM Modules accepted: Orders documented in this encounter Plan of Treatment Upcoming Encounters Date Type Department Care Team (Late st Contact Info) Description 05/21/2024 1:00 PM EDT Office Visit Urology at [facility] [place] [address] Luz Elena Fuentes APRN [facility] [place] [address] documented as of this encounter Procedures Procedure [...] JOSEPH ? (Age): 1960(54y) Med Rec#: ? [id number] ?Sex: ?M ? Site Loc: ? [facility] ?Ht / Wt: ??177(cm)/95.01(k Pt. Loc: ?Echo Lab ?BSA: ?2.12 Study Date: ?? 10/30/2015 ?Pt. Type: Tape: ? Referring: ADOLFO ALEOJ Referring: Adolfo Alejo Reading: Nirmal Arroyo ([id number]) Tray Line Supervisor: Grady Orosco Cake Knocker: Milagros Duke Interpreting Fellow: Gregor Schwarz ??([id number]) Interpreting Fellow: Madan Hu ([id number]) Interpreting Fellow: Albino Rice ([id number]) Diagnosis: *ICD-10-PCS Shortness of breath (R06.02) *ICD-10-PCS Other chest pain (R07.89) CPT Codes: *Stress Echo (15020) *Color Doppler (76461) *Doppler LTD (99237) *ECG Interpretation (55728) *Definity (27687IR) Stage ? BP ?HR ? Rest ?166/80 [...] E-wave Vmax ?0.5 ?m/sec ? MV deceleration [id number] ?msec ? MV A-wave Vmax ?0.6 ?m/sec [...] ?Normal ?Normal ? Mid-Inferoseptal ?Normal ?Normal ? [place]-Septal ? Normal ?Normal ? [place]-Anterior ? Normal ?Normal ? [place]-Lateral ?Normal ?Normal ? [place]-Inferior ? Normal ?Normal ? [place]-Tip ?Normal ?Normal ? This report has been electronically signed by: Nirmal Arroyo M.D. ? 10/30/2015 12:53:17 Images reviewed and interpretation verified [facility] Cardiac Ultrasound Laboratory Procedure Note Nirmal Arroyo MD - 10/30/2015 Procedure: Stress Echocardiogram Patient: CHIARA TORRES(Age): 1960(54y) Med Rec#: [id number] Sex: M Site Loc: [facility] Ht / Wt: 177(cm)/95.01(k Pt. Loc: Echo Lab BSA: 2.12 Study Date: 10/30/2015 Pt. Type: Tape: Referring: ADOLFO ALEJO Referring: Adolfo Alejo Reading: Nirmal Arroyo ([id number]) Tray Line Supervisor: Grady Orosco Cake Knocker: Milagros Duke Interpreting Fellow: Gregor Schwarz ([id number]) Interpreting Fellow: Madan Hu ([id number]) Interpreting Fellow: Albino Rice ([id number]) Diagnosis: *ICD-10-PCS Shortness of breath (R06.02) *ICD-10-PCS Other chest pain (R07.89) CPT Codes: *Stress Echo (09119) *Color Doppler (35516) *Doppler LTD (63876) *ECG Interpretation (07231) *Definity (03671NI) Stage BP HR Rest 166/80 86 Peak [...] MV E-wave Vmax 0.5 m/sec MV deceleration [id number] msec MV A-wave Vmax 0.6 m/sec MV [...] Normal Mid-Inferior Normal Normal Mid-Inferoseptal Normal Normal [place]-Septal Normal Normal [place]-Anterior Normal Normal [place]-Lateral Normal Normal [place]-Inferior Normal Normal [place]-Tip Normal Normal This report has been electronically signed by: Nirmal Arroyo M.D. 10/30/2015 12:53:17 Images reviewed and interpretation verified [facility] Cardiac Ultrasound Laboratory Adolfo Alejo MD ECHO ORDERABLES * Troponin T (09/11/2015 12:30 PM EST) [facility] Troponin-T <0.03 <=0.03 ng/mL MIRNA ROSAS Comment: 0.03 ng/mL: Represents the 99th percentile upper reference limit for normals. >0.03 ng/mL: Elevated cardiac troponin T level indicative of myocardial damage. Diagnosis of acute, evolving or recent MA requires a typical rise and gradual fall [...] consensus document of the Joint Society of Cardiology/[place] College of Cardiology Committee for the redefinition of myocardial infarction. ??Journal of the [place] College of [employer]iology 2000; 36: 959-969] Blood specimen (specimen) 09/11/2015 12:30 PM EST 09/11/2015 12:45 PM EST Narrative Resulting Agency Comment Spec In Lab Adolfo Alejo MD CHEMISTRY ORDERABLES Performing Organization Address City/State/[facility] Co de Phone Number MIRNA ROSAS * EKG 12 Lead (09/11/2015 11:00 AM EST) [facility] Ventricular rate 72 BPM MUSE SYSTEM Atrial Rate 72 BPM MUSE SYSTEM P-R Interval 180 ms MUSE SYSTEM QRS Duration 94 ms MUSE SYSTEM Q-T Interval 358 ms MUSE SYSTEM QTC Calculated (Bezet) 392 ms MUSE SYSTEM Calculated P [place] 73 degrees MUSE SYSTEM Calculated R [place] 74 degrees MUSE SYSTEM Calculated T [place] 63 degrees MUSE SYSTEM INTERPRETATION Normal sinus rhythm Normal ECG No previous ECGs available Confirmed by MD Melo, Adolfo ([id number]) on 09/11/2015 1:38:08 PM MUSE SYSTEM 09/11/2015 11:0 0 AM EST 09/11/2015 1:38 PM EST Adolfo Alejo MD ECG ORDERABLES [facility] SYSTEM documented in this encounter Visit Diagnoses Diagnosis Chest discomfort Other chest pain SOB (shortness of breath) Shortness of breath Atypical chest pain Other chest pain Chest discomfort Other chest pain SOB (shortness of breath) Shortness of breath Atypical chest pain Other chest pain documented in this encounter Care Teams Software Tools Engineer Relationship Specialty Start Date End Date Ralph Ellison MD [facility] [address] [place] [address] PCP - General General Internal Medicine 09/05/1512/13 documented as of this encounter
--- OUTSIDE RECORDS SUMMARY | 2024-05-19 12:56 | XMS_ITS | Encounter Summary ---
Author Organization [facility] [place] [address] Care Team Providers Care Healthcare Account Manager Name Role Phone Dom Kennedy MD Primary Care Provider [phone] Encounter Details Date Type Department Care Team (Late st Contact Info) Description 06/03/2020 [place] [phone] Estrella Hickman MD [facility] [place] [address] Social History Tobacco Use Types Packs/Day Years [...] 1:00 PM EDT [place] [address] Luz Elena Fuentes APRN [facility] [place] [place] [address] documented as of this encounter Visit Diagnoses Not on filedocumented in this encounter Care Teams Healthcare Account Manager Relationship Specialty Start Date End Date Dom Kennedy MD PCP - General 12/28/16 documented as of this encounter
--- OUTSIDE RECORDS SUMMARY | 2024-05-19 12:56 | XMS_ITS | Encounter Summary ---
Author Organization [facility] Address [facility] [place] [address] Care Team Providers Care Flexographic Press Helper Name Role Phone Aftab Coles MD, Dom Conrad Primary Care Provider [phone] Encounter Details Date Type Department Care Team (Late st Contact Info) Description 08/21/2010 9:30 AM EST Procedure visit [facility] [address] [place] [address] Ramirez Ahuja MD [address] [place] [address] Social History Tobacco Use Types Packs/Day Years [...] 1:00 PM EDT Office [place] [address] Luz Elena Fuentes APRN [facility] [place] [address] documented as of this encounter Visit Diagnoses Not on filedocumented in this encounter Care Teams Flexographic Press Helper Relationship Specialty Start Date End Date Dom Ugalde Jr., MD PCP - General 08/11/10 09/03/10 documented as of this encounter
--- OUTSIDE RECORDS SUMMARY | 2024-05-19 12:56 | XMS_ITS | Encounter Summary ---
Author Organization [facility] [place] [address] Care Team Providers Care Preschool Head Teacher Name Role Phone Keo Orozco APRN Primary Care Provider Encounter Details Date Type Department Care Team (Late st Contact Info) Description 12/21/2010 9:00 AM EDT Follow-Up [facility] [address] [place] [phone] Ramirez Ahuja MD [address] [place] [address] Social History Tobacco Use Types Packs/Day Years [...] 1:00 PM EDT [place] [address] Luz Elena Fuentes APRN [facility] [place] [address] documented as of this encounter Visit Diagnoses Not on filedocumented in this encounter Care Teams Preschool Head Teacher Relationship Specialty Start Date End Date Keo Orozco APRN [address] [place] [address] PCP - General 09/30/10 09/29/11 documented as of this encounter
--- OUTSIDE RECORDS SUMMARY | 2024-05-19 12:56 | XMS_ITS | Encounter Summary ---
Author Organization [facility] [place] [address] Care Team Providers Care Electronic Engineering Technician Name Role Phone Keo Orozco APRN Primary Care Provider Encounter Details Date Type Department Care Team (Late st Contact Info) Description 03/18/2011 2:30 PM EDT Office Visit [address] [phone] Social History Tobacco Use Types Packs/Day Years [...] 1:00 PM EDT [place] [address] Luz Elena Fuentes APRN [facility] [place] [address] documented as of this encounter Visit Diagnoses Not on filedocumented in this encounter Care Teams Electronic Engineering Technician Relationship Specialty Start Date End Date Keo Orozco APRN [address] [place] [address] PCP - General 09/30/10 09/29/11 documented as of this encounter
--- OUTSIDE RECORDS SUMMARY | 2024-05-19 12:56 | XMS_ITS | Encounter Summary ---
Author Organization [facility] Address [facility] [place] [address] Care Team Providers Care Enroller Name Role Phone Aftab Coles MD, Dom Conrad Primary Care Provider [phone] Encounter Details Date Type Department Care Team (Late st Contact Info) Description 09/11/2010 4:00 PM EST Office Visit [facility] [address] [place] [phone] Bijan Wallace, DPM [address] [place] [address] Social History Tobacco Use Types Packs/Day Years [...] 1:00 PM EDT [place] [address] Luz Elena Fuentes APRN [facility] [place] [address] documented as of this encounter Visit Diagnoses Not on filedocumented in this encounter Care Teams Enroller Relationship Specialty Start Date End Date Dom Ugalde Jr., MD PCP - General 09/09/10 09/29/10 documented as of this encounter
--- OUTSIDE RECORDS SUMMARY | 2024-05-19 12:56 | XMS_ITS | Encounter Summary ---
Author Organization [facility] [place] [address] Care Team Providers Care Document Reviewer Name Role Phone Dom Kennedy MD Primary Care Provider [phone] Encounter Details Date Type Department Care Team (Late st Contact Info) Description 03/22/2014 Abstract [facility] Information Services [address] [facility] [place] [id number] Provider, His MD Bull Social History Tobacco [...] oz) 03/22/2014 1:00 PM EDT Sourced from [place] Conversion Height 175.3 cm (5' 9) 03/22/2014 1:00 PM EDT Sourced from [place] Conversion Body Mass Index 30.78 03/22/2014 1:00 PM EDT documented in this encounter Plan of Treatment Upcoming Encounters Date Type Department Care Team (Late st Contact Info) Description 05/21/2024 1:00 PM EDT Office Visit Urology at [facility] [place] [address] Luz Elena Fuentes APRN [facility] [place] [place] [address] documented as of this encounter Visit Diagnoses Not on filedocumented in this encounter Care Teams Document Reviewer Relationship Specialty Start Date End Date Dom Kennedy MD PCP - General 12/28/16 documented as of this encounter
--- OUTSIDE RECORDS SUMMARY | 2024-05-19 12:56 | XMS_ITS | Encounter Summary ---
Author Organization [facility] Address [facility] [place] [address] Care Team Providers Care Bindery Machine Tender Name Role Phone Michael Mims MD Primary Care Provider [phone] Encounter Details Date Type Department Care Team (Late st Contact Info) Description 03/22/2014 1:30 PM EDT Follow-Up [address] [address] Janie Saravia PA [address] [place] [address] Social History Tobacco Use Types Packs/Day Years [...] 1:00 PM EDT Office Visit Urology at [facility] [place] [address] Luz Elena Fuentes APRN [facility] [place] [place] [address] documented as of this encounter Visit Diagnoses Not on filedocumented in this encounter Care Teams Bindery Machine Tender Relationship Specialty Start Date End Date Michael Mims MD [address] [place] [address] PCP - General 03/22/14 05/28/14 documented as of this encounter
--- OUTSIDE RECORDS SUMMARY | 2024-05-19 12:56 | XMS_ITS | Encounter Summary ---
Author Organization [facility] Address [facility] [place] [address] Care Team Providers Care Brick Kiln Burner Name Role Phone Michael Mims MD Primary Care Provider [phone] Encounter Details Date Type Department Care Team (Late st Contact Info) Description 01/04/2012 11:40 AM EDT Office Visit [address] [address] Michael Mims MD [address] [place] [address] Social History Tobacco Use Types Packs/Day Years [...] [facility] [address] LuzE lena Fuentes APRN [facility] [place] [address] documented as of this encounter Visit Diagnoses Not on filedocumented in this encounter Care Teams Brick Kiln Burner Relationship Specialty Start Date End Date Michael Mims MD [address] [place] [address] PCP - General 10/11/11 03/21/14 documented as of this encounter
--- OUTSIDE RECORDS SUMMARY | 2024-05-19 12:57 | XMS_ITS | Encounter Summary ---
Author [facility] [place] [address] Care Team Providers Care Call Center Rn Name Role Phone Dom Kennedy MD Primary Care Provider [phone] Encounter Details Date Type Department Care Team (Late st Contact Info) Description 08/15/2009 External Results Lab at [address] [phone] Social History Tobacco Use Types Packs/Day Years [...] 1:00 PM EDT [place] [address] Luz Elena Fuentes APRN [facility] [place] [address] documented as of this encounter Procedures Procedure [...] totally submitted in two cassettes. Conversion Summary [facility] Case Type: ? Routine Surgical Requesting Provider: ??LETICIA GALEANA M.D. [facility] Pathology Staff Roles Gross: Olman Stuart M.D. ? (P) N ? (ADDITIONAL) Pathologist: Olman Stuart M.D. ? (P) [facility] PATHOLOGY REPORT CONVERSION 02/04/2010 1:47 PM EDT Provider Kristin Pathology Report Convers ion PATHOLOGY/CYTOLOGY ORDERABLES [facility] PATHOLOGY REPORT CONVERSION documented in this encounter Visit Diagnoses Not on filedocumented in this encounter Care Teams Call Center Rn Relationship Specialty Start Date End Date Dom Kennedy MD PCP - General 12/28/16 documented as of this encounter
--- OUTSIDE RECORDS SUMMARY | 2024-05-19 12:57 | XMS_ITS | Encounter Summary ---
Author Organization [facility] [place] [address] Care Team Providers Care Communications Project Manager Name Role Phone Aftab Coles MD, Dom Conrad Primary Care Provider [phone] Encounter Details Date Type Department Care Team (Late st Contact Info) Description 07/30/2010 2:30 PM EST Office Visit [facility] [address] [place] [address] Lorene Luna, RD [address] [place] [address] Social History Tobacco Use Types Packs/Day Years [...] 1:00 PM EDT [place] [address] Luz Elena Fuentes APRN [facility] [place] [address] documented as of this encounter Visit Diagnoses Not on filedocumented in this encounter Care Teams Communications Project Manager Relationship Specialty Start Date End Date Dom Ugalde Jr., MD PCP - General 07/07/10 08/05/10 documented as of this encounter
--- OUTSIDE RECORDS SUMMARY | 2024-05-19 12:57 | XMS_ITS | Encounter Summary ---
Author Organization [facility] [place] [address] Care Team Providers Care Case Maker Name Role Phone Aftab Coles MD, Dom Conrad Primary Care Provider [phone] Encounter Details Date Type Department Care Team (Late st Contact Info) Description 07/30/2010 3:30 PM EST Office Visit [address] [phone] Maura Rooney PsyD [address] [place] [address] [place] [address] Social History Tobacco Use Types [...] 1:00 PM EDT [place] [address] Luz Elena Fuentes APRN [facility] [place] [address] documented as of this encounter Visit Diagnoses Not on filedocumented in this encounter Care Teams Case Maker Relationship Specialty Start Date End Date Dom Ugalde Jr., MD PCP - General 07/07/10 08/05/10 documented as of this encounter
--- OUTSIDE RECORDS SUMMARY | 2024-05-19 12:57 | XMS_ITS | Encounter Summary ---
Author Organization [facility] [place] [address] Care Team Providers Care Senior Manufacturing Supervisor Name Role Phone Unavailable Primary Care Provider Unavailabl e Encounter Details Date Type Department Care Team (Late st Contact Info) Description 06/24/2010 9:00 AM EST Procedure visit [address] [address] Janie Saravia MD [facility] Social History Tobacco Use Types Packs/Day Years [...] 1:00 PM EDT [place] [address] Luz Elena Fuentes APRN [facility] [place] [address] documented as of this encounter Visit Diagnoses Not on filedocumented in this encounter
--- OUTSIDE RECORDS SUMMARY | 2024-05-19 12:57 | XMS_ITS | Encounter Summary ---
Author Organization [facility] Address [facility] [place] [address] Care Team Providers Care Tower Attendant Name Role Phone Aftab Coles MD, Dom Conrad Primary Care Provider [phone] Encounter Details Date Type Department Care Team (Late st Contact Info) Description 08/19/2010 3:45 PM EST Office Visit [address] [phone] Keo Orozco APRN [address] [place] [address] Social History Tobacco Use Types Packs/Day Years [...] 1:00 PM EDT [place] [address] Luz Elena Fuentes APRN [facility] [place] [address] documented as of this encounter Visit Diagnoses Not on filedocumented in this encounter Care Teams Tower Attendant Relationship Specialty Start Date End Date Dom Ugalde Jr., MD PCP - General 08/11/10 09/03/10 documented as of this encounter
[2024-05-19 12:59] LABS: Anion Gap 7.1 mmol/L (3-11); BUN 15 mg/dL (7-18); CO2 25.9 mmol/L (21.0-32.0); Calcium 8.1 mg/dL (8.5-10.1); Chloride 108 mmol/L (98-107); Estimated GFR 84.05 (mL/min/1.73m2); Glucose 122 mg/dL (74-106); Potassium 3.2 mmol/L (3.5-5.1); Sodium 141 mmol/L (136-145)
[2024-05-19] MEDS: Albuterol/Ipratropium 3 ML UPD VIAL UPD ×2 (13:29→17:36)
[2024-05-19] MEDS: Enoxaparin 40 MG/0.4 ML SYR SC (14:07)
[2024-05-19] MEDS: Acetaminophen 325 MG TAB PO ×2 (15:23→19:48)
--- NOTE | 2024-05-19 16:31 | HPE_ITS ---
Date of service: 05/19/24 Time of Service: 07:20 Assessment and Plan Assessment and plan (1) Pneumonia: Status: Acute Assessment and plan: Progressive symptoms of pneumonia over last week in a diabetic patient. Pneumococcal vaccination unknown. Patient now with left pleural pain, worsening over past few hours. Possible empyema complication in evolution. Patient pneumonia and sepsis syndrome most compatible with Pneumococcal pneumonia and sepsis. Will continue IV ceftriaxone and PO Doxycycline. Pneumococcal urine antigen ordered. If L pleural pain continues, check CT chest without contrast to evaluate for intra pleural process. (2) Acidosis, lactic: Status: Acute Assessment and plan: repeat lactic acid until normalized (3) Bilateral primary osteoarthritis of hip: Status: Chronic Assessment and plan: will hold mobic at this time while hospitalized/ (4) HTN (hypertension): Status: Chronic Assessment and plan: continue HTN meds (5) Insulin dependent type 2 diabetes mellitus: Status: Acute Assessment and plan: continue oral agents and SQ insulin per regimen. Patient at higher risk for pneumococcal disease. (6) Hypoxia: Status: Acute Assessment and plan: improved and on room air at this time after admission to ICU. (7) Hypotension: Status: Acute Assessment and plan: IV norepinephrine drip running with stable BP Add IV fluids LR 125cc/hr (8) Sepsis: Start date: 05/19/24 Status: Acute Assessment and plan: elevated venous lactate hypotension post treatment with IV antibiotics. History of Present Illness History of Present Illness Chief Complaint: fall without LOC following a week of progressive cough and dyspnea Narrative: Clinical course reviewed including notes, orders, labs, vitals, meds, imaging, and cultures. Care is discussed with primary nurse. Patient is a 63 YO male with IR DM, osteoarthritis admitted for sepsis, pneumonia and following a bathroom fall presenting to ED via EMS and was found to be with low 02 saturation of 80% on presentation. For the past week he has been having progressive malaise with non productive cough, denies chills, fever, night sweats, rash, lightheadedness, abdominal pain or diarrhea. We have no documentation of pneumococcal pneumonia vaccine administration. PMX + DM Insulin requiring on SGLT2 agent, insulin, glipizide and metformin. BPD, osteoarthritis of hips Patient CXR notable for bibasilar infiltrates consistent with pneumonia CT head negative for fracture or bleed Patient given boluses of IV fluids and eventually placed on norepinehrine for BP support. Laboratories are reviewed with normal AST/ALT, Na+, Lives at home with , cat, 2 dogs, a bird and fish. The bird is well and not ill at this time No recent travel out of the area. 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 He does not smoke and drinks only occasionally. [facility] All Active Problems (Updated 05/19/24 @ 16:45 by Jefry Waters DO) Sepsis (Acute) Hypotension (Acute) Hypoxia (Acute) Pneumonia (Acute) Acidosis, lactic (Acute) Bilateral primary osteoarthritis of hip (Chronic) Bilateral intra-articular Depo-Medrol injections: 03/23/2024 Hamstring tightness of both lower extremities (Acute) Patellar tendinitis of both knees (Acute) Left knee pain (Acute) Right knee pain (Acute) Paresthesias (Acute) Corns and callosities (Acute) Hemangioma (Acute) Tubular adenoma (Acute ~07/2023) Screen for colon cancer (Acute) Atypical pigmented skin lesion (Acute) Colon adenomas (Acute) 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) [place]-Schlatter's disease (Acute) Hyperlipidemia (Acute) Sensorineural hearing loss (SNHL) of right ear with unrestricted hearing of left ear (Acute) Pain of right patellofemoral joint (Chronic) Depo-Medrol injection: 04/27/2024 Pain of left patellofemoral joint (Chronic) Depo-Medrol injection: 04/27/2024 Primary hypoadrenalism (Acute) Dysthymic disorder (Acute) HTN (hypertension) (Chronic) Insulin dependent type 2 diabetes mellitus (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 Gross hematuria BMI 28.0-28.9,adult Lower urinary tract symptoms (LUTS) Balanitis Concussion Seborrheic keratosis Exposure to hepatitis B Lower urinary tract infection Obesity Surgical History History of removal of nevus Hx of laparoscopic gastric banding (~12/25/10) 2009 colonoscopy (~07/2023) path sent Social History Smoking/Tobacco Use Status: Never Smoking risk assessment performed?: Yes Alcohol Intake: current Alcohol Intake frequency: holidays/special occasions only Drug use: Never Substance use type: does not use Household members: spouse and children Housing: house Number of Children: 1 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 Do you feel safe at home: Yes Do you feel safe in your relationship?: Yes Meds Allergies and Home Medications Allergies Allergy/AdvReac Type Severity Reaction Status Date / Time ENVIRONMENTAL/DOGS/CATS Allergy Mild ITCHY Uncoded 05/19/24 06:25 WATERY EYES Home Medications ?Medication ?Instructions ?Recorded ?Confirmed ?Type fluoxetine 40 mg capsule 40 mg PO DAILY 06/14/13 05/19/24 History tamsulosin 0.4 mg capsule 0.4 mg PO DAILY 04/20/19 05/19/24 History empagliflozin 25 mg tablet 25 mg PO DAILY 02/17/23 05/19/24 History insulin glargine 100 unit/mL (3 20 unit subcut .QD 02/17/23 05/19/24 History mL) subcutaneous pen (Lantus Solostar U-100 Insulin) gabapentin 100 mg capsule See Rx Instructions PO QHS PRN 07/18/23 05/19/24 History metformin 500 mg tablet,extended 1,500 mg PO DAILY 07/18/23 05/19/24 History release 24 hr albuterol sulfate 90 mcg/actuation 3 puff inhalation QID PRN 07/28/23 05/19/24 Rx aerosol inhaler shortness of breath or wheezing #6.7 grams sildenafil 100 mg tablet (Viagra) 100 mg PO DAILY PRN 02/21/24 05/19/24 History cyclobenzaprine 5 mg tablet See Rx Instructions PO TID PRN 04/11/24 05/19/24 History glipizide 2.5 mg tablet, extended 2.5 mg PO DAILY 04/11/24 05/19/24 History release 24 hr meloxicam 15 mg tablet See Rx Instructions .Route 04/29/24 05/19/24 Rx .COMPLEX #30 tabs Exam Narrative Exam Narrative: Patient examined in ED in am and ICU in late afternoon. at bedside both times. Patient is alert and oriented x 3 and in no acute distress HEENT: Neck supple, MM pink, dry and pasty, conjunctiva non-injected, sclera non-icteric, Pupils equal and reactive to light symmetrically, no JVD, no A waves. No thyromegaly. No carotid bruit CHEST: Bilaterally symmetrical with inspiration and expiration. No use of accessory muscles of respiration. No nasal flaring. RESP: Coarse BS bilaterally, + scattered rhonchi, no wheeze, decreased breath sounds at left base. COR: heart tones distant, RRR normal S1S2, no rub or gallop ABDOMEN: Soft, non tender diffusely, normally active bowel sounds diffusely, No hepatosplenomegaly, No abdominal bruit, no masses, no tenderness on deep abdominal palpation. G/U: deferred Rectal: deferred MUSCULOSKELETAL: Bilaterally symmetrical, no muscle belly tenderness or mass DERMIS: Skin warm and dry, no ulcers or rashes, EXTREMITIES: No cyanosis, clubbing or edema, no gross deformities of the large or small joints of the upper or lower extremities. NEUROLOGICAL: Cranial nerves intact II-XII without notable deficit, No peripheral neurosensory or motor deficits noted. LYMPH: No anterior or posterior cervical, no supraclavicular, No axillary, no epitrochlear or femoral lymphadenopathy. Results Labs 05/19/24 06:22 05/19/24 12:47 Labs: Laboratory Results - last 24 hr 05/19/24 05/19/24 05/19/24 06:22 06:28 07:39 WBC 10.29 RBC 4.18 L Hgb 13.3 L Hct 39.1 L MCV 94 MCH 31.8 MCHC 34.0 RDW 12.2 Plt Count 227 MPV 8.7 Immature Gran % 0.5 Neutrophils % 91.8 Lymphocytes % 4.0 Monocytes % 2.8 Eosinophils % 0.6 Basophils % 0.3 Nucleated RBC % 0.0 Absolute Neutrophils 9.45 H Absolute Lymphocytes 0.41 L Absolute Monocytes 0.29 Absolute Eosinophils 0.06 Absolute Basophils 0.03 VBG pH 7.43 H VBG pCO2 33 L VBG pO2 56 VBG HCO3 21 L VBG Total CO2 19 L VBG O2 Saturation 91 VBG Base Excess -3 L VBG Lactate 4.0 H* 3.9 H* Sodium 145 Potassium 3.3 L Chloride 108 H Carbon Dioxide 22.9 Anion Gap 14.1 H BUN 20 H Creatinine 1.2 Est GFR (CKD-EPI 2020) 67.53 Glucose 217 H Calcium 8.5 Magnesium 1.3 L Total Bilirubin 0.49 AST 14 L ALT 19 Alkaline Phosphatase 57 Troponin I 14 29 Total Protein 6.7 Albumin 3.0 L Procalcitonin 2.0 TSH 1.82 Urine Color Urine Clarity Urine pH Ur Specific Nursery Urine Protein Urine Ketones Urine Blood Urine Nitrite Urine Bilirubin Urine Urobilinogen Ur Leukocyte Esterase Urine RBC Urine WBC Ur Epithelial Cells Urine Crystals Urine Bacteria Urine Mucus Ur Culture Indicated? Urine Glucose COVID-19 Source Nasopharynx SARS-CoV-2 (PCR) Negative Influenza Type A (PCR) Negative Influenza Type B (PCR) Negative RSV (PCR) Negative 05/19/24 05/19/24 05/19/24 08:10 10:30 12:47 WBC RBC Hgb Hct MCV MCH MCHC RDW Plt Count MPV Immature Gran % Neutrophils % Lymphocytes % Monocytes % Eosinophils % Basophils % Nucleated RBC % Absolute Neutrophils Absolute Lymphocytes Absolute Monocytes Absolute Eosinophils Absolute Basophils VBG pH VBG pCO2 VBG pO2 VBG HCO3 VBG Total CO2 VBG O2 Saturation VBG Base Excess VBG Lactate Sodium 141 Potassium 3.2 L Chloride 108 H Carbon Dioxide 25.9 Anion Gap 7.1 BUN 15 Creatinine 1.0 Est GFR (CKD-EPI 2020) 84.05 Glucose 122 H Calcium 8.1 L Magnesium 2.0 Total Bilirubin AST ALT Alkaline Phosphatase Troponin I 29 Total Protein Albumin Procalcitonin TSH Urine Color Yellow Urine Clarity Clear Urine pH 7.0 Ur Specific Nursery 1.015 Urine Protein Trace Urine Ketones Negative Urine Blood Negative Urine Nitrite Negative Urine Bilirubin Negative Urine Urobilinogen 0.2 Ur Leukocyte Esterase Negative Urine RBC 0-2 Urine WBC 0-2 Ur Epithelial Cells Rare Urine Crystals Negative Urine Bacteria Rare Urine Mucus Negative Ur Culture Indicated? C&S Done As Ordered Urine Glucose >=1000 H COVID-19 Source SARS-CoV-2 (PCR) Influenza Type A (PCR) Influenza Type B (PCR) RSV (PCR) Last Vital Signs Temp 38.7 C H 05/19/24 15:35 Pulse 100 H 05/19/24 15:35 Resp 19 05/19/24 15:35 BP 127/59 L 05/19/24 15:35 Pulse Ox 95 05/19/24 15:35 Time Spent Time spent with Patient: >75 minutes Time was spent: preparing to see the patient(eg.review tests), obtaining and/or reviewing separately otained hiistory, ordering medications,tests, procedures, referring, communicating with other health child care director, indepentently interpreting results, counseling the patient and care coordination
[2024-05-19] MEDS: Potassium Chloride 20 MEQ TABCR PO (17:22)
[2024-05-19] MEDS: Doxycycline Hyclate 100 MG CAP PO (17:22)
[2024-05-19] MEDS: POTASSIUM CHLORIDE 10 MEQ/100 ML BAG 100 MEQ IVINF ×3 (17:22→19:42)
[2024-05-19] MEDS: Insulin Glargine 300 UNITS/3 ML PEN 20 UNITS SC (18:08)
[2024-05-19] MEDS: Normal Saline Flush 10 ML SYR IVP (21:15)
[2024-05-19 23:07] LABS: Lactate 0.9 mmol/L (0.6-1.4)
[2024-05-19 23:32] LABS: BUN 11 mg/dL (7-18); CO2 23.5 mmol/L (21.0-32.0); CREATININE 0.9 mg/dL (0.70-1.30); Calcium 7.8 mg/dL (8.5-10.1); Estimated GFR 95.37 (mL/min/1.73m2); Glucose 89 mg/dL (74-106); Magnesium 1.7 mg/dL (1.8-2.4)
[2024-05-19 23:35] LABS: Anion Gap 9.5 mmol/L (3-11); Chloride 107 mmol/L (98-107); Potassium 3.7 mmol/L (3.5-5.1); Sodium 140 mmol/L (136-145)
[2024-05-20] VITALS (137 sets, daily range): BP systolic 91–147; BP diastolic 63–85; PULSE 80–109; RESP 2–36; TEMP 36.6–38.3; O2SAT 91–100
[2024-05-20] MEDS: Normal Saline 1,000 ML 125 ML IV ×2 (00:11→10:53)
[2024-05-20] MEDS: Doxycycline Hyclate 100 MG CAP PO ×2 (06:20→17:49)
[2024-05-20 06:50] LABS: HCT 32.6 % (40.0-50.0); HGB 11.3 g/dL (13.5-17.5); MCH 32.4 pg (27.0-33.0); MCHC 34.7 % (32.0-36.0); MCV 93 fL (80-95); MPV 9.3 fL (8.0-11.0); Platelet Count 214 10^3/uL (130-400); RBC 3.49 10^6/uL (4.36-5.78); RDW 12.7 % (11.8-14.1); RDW-SD 43.9 fL; WBC 15.47 10^3/uL (4.4-10.8)
[2024-05-20 07:10] LABS: Anion Gap 7.4 mmol/L (3-11); BUN 10 mg/dL (7-18); CO2 24.6 mmol/L (21.0-32.0); CREATININE 0.8 mg/dL (0.70-1.30); Calcium 8.1 mg/dL (8.5-10.1); Chloride 109 mmol/L (98-107); Estimated GFR 98.83 (mL/min/1.73m2); Glucose 84 mg/dL (74-106); Magnesium 1.9 mg/dL (1.8-2.4); Potassium 3.6 mmol/L (3.5-5.1); Sodium 141 mmol/L (136-145)
--- NOTE | 2024-05-20 07:53 | W.PM.PROGNOT ---
Date of Service Date of service: 05/20/24 Time of Service: 07:53 Assessment and Plan Assessment and plan (1) Pneumonia: Status: Acute Assessment and plan: Progressive symptoms of pneumonia over last week in a diabetic patient. Pneumococcal vaccination unknown. Patient now with left pleural pain, worsening over past few hours. Possible empyema complication in evolution. CXR seems to show evolving L pleural effusion Patient pneumonia and sepsis syndrome most compatible with Pneumococcal pneumonia and sepsis. Will continue IV ceftriaxone and PO Doxycycline. Pneumococcal urine antigen ordered. Decrease IVF to 42cc/hr Will check CT scan of chest to evaluate for pleural effusion. If present, will need drained and fluid analysis as patient in high risk for empyema. (2) Acidosis, lactic: Status: Acute Assessment and plan: Lactic acid normalized with a repeat drawl last evening resolved (3) Bilateral primary osteoarthritis of hip: Status: Chronic Assessment and plan: will hold mobic at this time while hospitalized (4) HTN (hypertension): Status: Chronic Assessment and plan: continue HTN meds (5) Insulin dependent type 2 diabetes mellitus: Status: Acute Assessment and plan: continue oral agents and SQ insulin per regimen. Patient at higher risk for pneumococcal disease. (6) Hypoxia: Status: Acute Assessment and plan: improved and on room air at this time after admission to ICU. Remained stable overnight continues sympotmatic improvement. on RA now. (7) Hypotension: Status: Acute Assessment and plan: IV norepinephrine drip weaned off IV fluids running, will decrease to 42cc/hr (8) Sepsis: Start date: 05/19/24 Status: Acute Assessment and plan: elevated venous lactate, now normalized hypotension post treatment with IV antibiotics. Improved hemodynamic parameters no further indicators positive for sepsis (9) Hypokalemia: Start date: 05/19/24 Status: Acute Assessment and plan: Potassium replaced Repeat potassium normalized at 3.7 This morning, potassium 3.6, stable Subjective Subjective Interval history since last seen: Clinical course reviewed including notes, orders, labs, vitals, meds, imaging, and cultures. Care is discussed with primary nurse. Patient continues on intravenous ceftriaxone and oral doxycycline White count elevated to 15,000 today (12). Blood glucoses remained stable. Blood cultures no growth at less than 24 hours of incubation. Urine strep pneumoniae antigen ordered and specimen sent. Left pleuritic chest pain continues Exam Narrative Exam Narrative: Patient is examined in the intensive care unit. Exam is essentially unchanged. Patient appears comfortable on RA Patient is alert and oriented x 3 and in no acute distress HEENT: Neck supple, MM pink, dry and pasty, conjunctiva non-injected, sclera non-icteric, Pupils equal and reactive to light symmetrically, no JVD, no A waves. No thyromegaly. No carotid bruit CHEST: Bilaterally symmetrical with inspiration and expiration. No use of accessory muscles of respiration. No nasal flaring. RESP: Coarse BS bilaterally, + scattered rhonchi, no wheeze, decreased breath sounds at left base and laterally. COR: heart tones distant, RRR normal S1S2, no rub or gallop ABDOMEN: Soft, non tender diffusely, normally active bowel sounds diffusely, No hepatosplenomegaly, No abdominal bruit, no masses, no tenderness on deep abdominal palpation. G/U: deferred Rectal: deferred MUSCULOSKELETAL: Bilaterally symmetrical, no muscle belly tenderness or mass DERMIS: Skin warm and dry, no ulcers or rashes, EXTREMITIES: No cyanosis, clubbing or edema, no gross deformities of the large or small joints of the upper or lower extremities. NEUROLOGICAL: Cranial nerves intact II-XII without notable deficit, No peripheral neurosensory or motor deficits noted. LYMPH: No anterior or posterior cervical, no supraclavicular, No axillary, no epitrochlear or femoral lymphadenopathy. Objective Last Vital Signs Temp 37 C 05/19/24 23:01 Pulse 83 05/20/24 06:01 Resp 22 05/20/24 06:01 BP 126/72 05/20/24 06:01 Pulse Ox 96 05/20/24 06:01 Laboratory Results - last 24 hr 05/19/24 05/19/24 05/19/24 07:39 08:10 10:30 WBC RBC Hgb Hct MCV MCH MCHC RDW Plt Count MPV VBG Lactate Sodium Potassium Chloride Carbon Dioxide Anion Gap BUN Creatinine Est GFR (CKD-EPI 2020) Glucose Calcium Magnesium Troponin I 29 29 Urine Color Yellow Urine Clarity Clear Urine pH 7.0 Ur Specific Zeigler 1.015 Urine Protein Trace Urine Ketones Negative Urine Blood Negative Urine Nitrite Negative Urine Bilirubin Negative Urine Urobilinogen 0.2 Ur Leukocyte Esterase Negative Urine RBC 0-2 Urine WBC 0-2 Ur Epithelial Cells Rare Urine Crystals Negative Urine Bacteria Rare Urine Mucus Negative Ur Culture Indicated? C&S Done As Ordered Urine Collection Time Timed Urine Volume Urine Glucose >=1000 H Urine Magnesium Ur Magnesium 24 Hr 05/19/24 05/19/24 05/19/24 12:47 15:38 23:00 WBC RBC Hgb Hct MCV MCH MCHC RDW Plt Count MPV VBG Lactate 0.9 Sodium 141 140 Potassium 3.2 L 3.7 Chloride 108 H 107 Carbon Dioxide 25.9 23.5 Anion Gap 7.1 9.5 BUN 15 11 Creatinine 1.0 0.9 Est GFR (CKD-EPI 2020) 84.05 95.37 Glucose 122 H 89 Calcium 8.1 L 7.8 L Magnesium 2.0 1.7 L Troponin I Urine Color Urine Clarity Urine pH Ur Specific Zeigler Urine Protein Urine Ketones Urine Blood Urine Nitrite Urine Bilirubin Urine Urobilinogen Ur Leukocyte Esterase Urine RBC Urine WBC Ur Epithelial Cells Urine Crystals Urine Bacteria Urine Mucus Ur Culture Indicated? Urine Collection Time Cancelled Timed Urine Volume Cancelled Urine Glucose Urine Magnesium Cancelled Ur Magnesium 24 Hr Cancelled 05/19/24 05/19/24 05/19/24 23:48 23:49 23:51 WBC RBC Hgb Hct MCV MCH MCHC RDW Plt Count MPV VBG Lactate Sodium Cancelled Potassium Cancelled Chloride Cancelled Carbon Dioxide Cancelled Anion Gap Cancelled BUN Cancelled Creatinine Cancelled Est GFR (CKD-EPI 2020) Cancelled Glucose Cancelled Calcium Cancelled Magnesium Cancelled Cancelled Troponin I Urine Color Urine Clarity Urine pH Ur Specific Zeigler Urine Protein Urine Ketones Urine Blood Urine Nitrite Urine Bilirubin Urine Urobilinogen Ur Leukocyte Esterase Urine RBC Urine WBC Ur Epithelial Cells Urine Crystals Urine Bacteria Urine Mucus Ur Culture Indicated? Urine Collection Time Timed Urine Volume Urine Glucose Urine Magnesium Ur Magnesium 24 Hr 05/20/24 05:40 WBC 15.47 H RBC 3.49 L Hgb 11.3 L D Hct 32.6 L MCV 93 MCH 32.4 MCHC 34.7 RDW 12.7 Plt Count 214 MPV 9.3 VBG Lactate Sodium 141 Potassium 3.6 Chloride 109 H Carbon Dioxide 24.6 Anion Gap 7.4 BUN 10 Creatinine 0.8 Est GFR (CKD-EPI 2020) 98.83 Glucose 84 Calcium 8.1 L Magnesium 1.9 Troponin I Urine Color Urine Clarity Urine pH Ur Specific Zeigler Urine Protein Urine Ketones Urine Blood Urine Nitrite Urine Bilirubin Urine Urobilinogen Ur Leukocyte Esterase Urine RBC Urine WBC Ur Epithelial Cells Urine Crystals Urine Bacteria Urine Mucus Ur Culture Indicated? Urine Collection Time Timed Urine Volume Urine Glucose Urine Magnesium Ur Magnesium 24 Hr PAWSS Have you Been Recently Intoxicated or Drunk Within the Last 30 days?: No Have you Ever Experienced Previous Episodes of Alcohol Withdrawal?: No Have you ever Experienced Withdrawal Seizures?: No Have you ever Experienced Delirium Tremens(DT)s?: No Have you ever undergone Alcohol Rehabilitation Treatment (i.e, inpt ot outpatient treatment programs)?: No Have you ever Experienced Blackouts?: No Have you ever Combined Alcohol with other Downers within the last 90 days?: No Have you ever Combined Alcohol with any other Substance of Abuse during the last 90 days?: No Positive Blood Alcohol level on Presentation? [PCS.BAL]: No Evidence of Increased Autonomic Activity (i.e. HR>120, tremor, sweating, agitation, nausea)?: No Result: 0 Time Spent with Patient Time Spent with Patient: >50 minutes Time was spent: preparing to see the patient(eg.review tests), obtaining and/or reviewing separately otained hiistory, ordering medications,tests, procedures, referring, communicating with other health managed care specialist, indepentently interpreting results, counseling the patient and care coordination
--- NOTE | 2024-05-20 08:59 | DI.RAD_ITS ---
Exam(s) XR PORTABLE CHEST AP EXAM: XR PORTABLE CHEST AP CLINICAL HISTORY: pneumonia TECHNIQUE: 2D digital imaging was performed. COMPARISON: CR,XR XR CHEST 1V IN DI DEPT from 05/19/2024 FINDINGS: Exam limited by overlying monitoring leads and suboptimal pulmonary inflation. LUNGS: Increasing density at the left lower lobe consistent with worsening of pneumonia. No definite abnormality at the right lung base. No pleural abnormality seen. HEART: Normal size. AORTA: Normal diameter. BONES: Unremarkable for age. Soft tissues: Unremarkable. IMPRESSION: Worsening of left lower lobe pneumonia. DATA REPOSITORY: RADIATION DOSE DELIVERED:
--- NOTE | 2024-05-20 09:20 | DI.VRAD_ITS ---
PROCEDURE INFORMATION: Exam: XR Chest Exam date and time: 05/20/2024 8:54 AM Age: 63 years old Clinical indication: Other: Pneumonia TECHNIQUE: Imaging protocol: Radiologic exam of the chest. Views: 1 view. COMPARISON: CR XR CHEST 1V IN DI DEPT 05/19/2024 7:28 AM FINDINGS: Lungs: The area of retrocardiac opacity seen on yesterday's exam appears slightly larger today. The right lung remains clear. Pleural spaces: Unremarkable. No pleural effusion. No pneumothorax. Heart/Mediastinum: Cardiomediastinal silhouette is normal. Bones/joints: Unremarkable. IMPRESSION: Left lower lobe pneumonia appears slightly worse. Dictated and Authenticated by: Td Rivas MD. Ordering:SEVERIANO Capps MD
[2024-05-20] MEDS: cefTRIAXone 2 GM/50 ML BAG IVPB (09:46)
[2024-05-20] MEDS: Empaglifozin 25 MG TAB PO (09:49)
[2024-05-20] MEDS: metFORMIN C.R. 500 MG TABCR 1500 MG PO (09:50)
[2024-05-20] MEDS: FLUoxetine 20 MG CAP 40 MG PO (09:50)
[2024-05-20] MEDS: Tamsulosin 0.4 MG CAPCR PO (09:51)
[2024-05-20] MEDS: Normal Saline Flush 10 ML SYR IVP ×2 (09:51→20:25)
[2024-05-20] MEDS: Albuterol/Ipratropium 3 ML UPD VIAL UPD ×3 (12:33→23:34)
--- NOTE | 2024-05-20 13:46 | PDOC.CMIN ---
Date of service: 05/20/24 Time of Service: 13:30 Care Management Initial Assmt Initial Assessment Reason for Hospitalization: pneumonia/sepsis Functional Status/Living Situation Patient Presentation: Rob presented to the ER early yesterday morning with progressive respiratory symptoms over the course of a week. When he finally called EMS, his O2 sat was noted to be in the low 80's. Today Rob presents without an O2 requirement, and asked CM about going home. Rob was sitting up in the bed when CM met with him. He was very pleasant, and easily engaged. He was very proud to talk about his son, who is currently in [employer] pursuing a master's degree. He denied any pain or concerns. Town of Residence: [place] Resides with: Spouse (Luz Elena) Significant Other/Family: Local ( and sister, Arabella. 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 Has a good amount of friends. Medications Medication Management: No Issues/Barriers identified (denies) Advance Directives Advance Directives: Do you have an Advance Directive: N 06/08/13 12:44 AD On File at [facility]: N 05/28/13 14:23 Date Asked 05/19/24 05/19/24 12:53 AD Date Reviewed COLST On File at [facility] COLST Date Scanned Code Status Resuscitation Status Full Code Insurance Coverage/Financial Issues Insurance: BCBS Financial Issues: denie Care Team Visit Care Team Role Provider Type Kade Higuera Primary Care Provider NON-[facility] STAFF PHYSICIAN Keo Mendiola MD Emergency Provider [facility] STAFF PHYSICIAN Jefry Waters, DO Admit Provider [facility] STAFF PHYSICIAN Attending Provider Discharge Potential Discharge Needs: PCP F/U Appt Anticipated Barriers to Discharge: None Identified Patient/Family Education Needs: Review discharge instructions, discuss Ask Me Three Transportation: Private vehicle Plan: Anticipate that rob will be discharged home on oral antibiotics, with the plan to f/u with his PCP. He will travel in a private car with his . CM will continue to follow and update the plan as needed. PFSH All Active Problems (Updated 05/20/24 @ 07:58 by Jefry Waters DO) Hypokalemia (Acute) Sepsis (Acute) Hypotension (Acute) Hypoxia (Acute) Pneumonia (Acute) Acidosis, lactic (Acute) Bilateral primary osteoarthritis of hip (Chronic) Bilateral intra-articular Depo-Medrol injections: 03/23/2024 Hamstring tightness of both lower extremities (Acute) Patellar tendinitis of both knees (Acute) Left knee pain (Acute) Right knee pain (Acute) Paresthesias (Acute) Corns and callosities (Acute) Hemangioma (Acute) Tubular adenoma (Acute ~07/2023) Screen for colon cancer (Acute) Atypical pigmented skin lesion (Acute) Colon adenomas (Acute) 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) [place]-Schlatter's disease (Acute) Hyperlipidemia (Acute) Sensorineural hearing loss (SNHL) of right ear with unrestricted hearing of left ear (Acute) Pain of right patellofemoral joint (Chronic) Depo-Medrol injection: 04/27/2024 Pain of left patellofemoral joint (Chronic) Depo-Medrol injection: 04/27/2024 Primary hypoadrenalism (Acute) Dysthymic disorder (Acute) HTN (hypertension) (Chronic) Insulin dependent type 2 diabetes mellitus (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 Gross hematuria BMI 28.0-28.9,adult Lower urinary tract symptoms (LUTS) Balanitis Concussion Seborrheic keratosis Exposure to hepatitis B Lower urinary tract infection Obesity Surgical History History of removal of nevus Hx of laparoscopic gastric banding (~12/25/10) 2009 colonoscopy (~07/2023) path sent Social History Smoking/Tobacco Use Status: Never Smoking risk assessment performed?: Yes Alcohol Intake: current Alcohol Intake frequency: holidays/special occasions only Drug use: Never Substance use type: does not use Household members: spouse and children Housing: house Number of Children: 1 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 Do you feel safe at home: Yes Do you feel safe in your relationship?: Yes Readmission Within the Past 30 Days Yes or No: No SDOH(Care Management) Screening Will the Patient Participate in the Screening?: Yes Do you worry about having a steady place to live?: no Problems where you live: no known problems In the past 12 months, have you had to go without electric, gas, oil or water in your home?: no Have you or anyone in your house had to go without enough food to eat?: no Has lack of transportation kept you from medical appointments or from doing things needed for daily living?: no Has anyone in your support network made you feel unsafe for any reason?: no
[2024-05-20] MEDS: Enoxaparin 40 MG/0.4 ML SYR SC (15:05)
[2024-05-20] MEDS: Insulin Glargine 300 UNITS/3 ML PEN 20 UNITS SC (17:49)
[2024-05-20] MEDS: guaiFENesin 200 MG/10 ML CUP 400 MG PO (17:49)
--- NOTE | 2024-05-20 19:45 | W.PC.ACHO ---
Registration Status: Primary Language: Preferred Language: ED Information & Data Chief Complaint RespSymp 05/19/24 06:40 Other Complaint GenMedical 05/19/24 06:15 Triage Note BIBA for increasing weakness 05/19/24 06:15 , cold S&S started on tuesday , now feeling worse. T 103. 4F tympanic per EMS, HR 120s enroute. New O2 requirement with EMS. Fall while walking to bathroom tonight, no head strike. 500mL NS enroute. 18g L forearm. T2DM. Medical / Surgical History (Last Reviewed 05/19/24 @ 16:41 by Jefry Waters DO) Seborrheic keratosis (07/15/14) Neoplasm of skin (07/08/14) History of Lyme disease Gross hematuria BMI 28.0-28.9,adult Lower urinary tract symptoms (LUTS) Balanitis Concussion Seborrheic keratosis Exposure to hepatitis B Lower urinary tract infection Obesity (Last Reviewed 05/19/24 @ 16:41 by Jefry Waters DO) History of removal of nevus Hx of laparoscopic gastric banding (~12/25/10) colonoscopy (~07/2023) Most Recent Vital Signs Temperature 37.2 C 05/20/24 18:38 Temperature Source Temporal Artery Scan 05/20/24 09:58 Pulse 101 H 05/20/24 19:01 Pulse 109 H 05/20/24 18:32 Respiratory Rate 17 05/20/24 19:23 Respiratory Effort Incrsd Work of Breathing 05/19/24 13:06 Respiratory Depth Shallow 05/19/24 13:06 Respiratory Pattern Normal 05/19/24 13:06 Blood Pressure 118/67 05/20/24 19:01 Blood Pressure Mean 104 05/20/24 18:32 Blood Pressure Position Supine 05/19/24 13:06 Pulse Oximetry 95 05/20/24 19:23 Oxygen Delivery Method Room Air 05/20/24 17:31 Oxygen Flow Rate 0 05/20/24 17:31 Pain Level 0 05/20/24 09:58 Comment oral temp 05/19/24 07:50 Allergies ENVIRONMENTAL/DOGS/CATS Allergy (Mild, Uncoded 05/19/24 06:25) ITCHY WATERY EYES Precautions Isolation PUI 05/19/24 06:23 Active Medications Generic Name Dose Route Start Last Admin Trade Name Freq PRN Reason Stop Dose Admin Acetaminophen 0 mg 05/19/24 10:02 05/19/24 19:48 Acetaminophen 325 Mg Tab PO 650 mg Q4H PRN PRN Administration Albuterol/Ipratropium 3 ml 05/19/24 12:00 05/20/24 17:31 Albuterol/Ipratropium 3 Ml Upd Vial UPD 3 ml Q6H SHAVON Administration Doxycycline Hyclate 100 mg 05/19/24 18:00 05/20/24 17:49 Doxycycline Hyclate 100 Mg Cap PO 100 mg Q12H SHAVON Administration Empagliflozin 25 mg 05/20/24 08:30 05/20/24 09:49 Empaglifozin 25 Mg Tab PO 25 mg DAILY SHAVON Administration Enoxaparin Sodium 40 mg 05/19/24 14:00 05/20/24 15:05 Enoxaparin 40 Mg/0.4 Ml Syr SC 40 mg Q24H SHAVON Administration Fluoxetine HCl 40 mg 05/20/24 08:30 05/20/24 09:50 Fluoxetine 20 Mg Cap PO 40 mg DAILY SHAVON Administration Glipizide 2.5 mg 05/20/24 08:30 05/20/24 09:50 Glipizide C.R. 2.5 Mg Tabcr PO 2.5 mg DAILY SHAVON Administration Guaifenesin 400 mg 05/20/24 16:15 05/20/24 17:49 Guaifenesin 200 Mg/10 Ml Cup PO 400 mg Q8H SHAVON Administration Sodium Chloride 1,000 mls @ 42 mls/hr 05/19/24 10:15 05/20/24 16:29 Saline 1000ml Bag IV 42 mls/hr INFUSION SHAVON Infusion Ceftriaxone Sodium/Dextrose 2 gm in 50 mls @ 100 mls/hr 05/20/24 08:00 05/20/24 10:51 Rocephin IVPB Infused Q24H SHAVON Infusion Insulin Glargine 20 units 05/19/24 17:00 05/20/24 17:49 Insulin Glargine 300 Units/3 Ml Pen SC 20 units Q24H SHAVON Administration Metformin HCl 1,500 mg 05/20/24 08:30 05/20/24 09:50 Metformin C.R. 500 Mg Tabcr PO 1,500 mg DAILY SHAVON Administration Sodium Chloride 0 ml 05/19/24 20:00 05/20/24 09:51 Normal Saline Flush 10 Ml Syr IVP 10 ml BID SHAVON Administration Tamsulosin HCl 0.4 mg 05/20/24 08:30 05/20/24 09:51 Tamsulosin 0.4 Mg Capcr PO 0.4 mg DAILY SHAVON Administration IV IV Catheter Type [Left Saline Lock Antecubital] IV Catheter Type [Right Hand] Saline Lock IV Catheter Type [Left Forearm Peripheral IV ] IV Catheter Gauge [Left 18 Antecubital] IV Catheter Gauge [Right Hand] 18 IV Catheter Gauge [Left 18 Forearm] Diagnostics 05/20/24 05/19/24 Range/Units 05:40 23:00 WBC 15.47 H (4.4-10.8) 10^3/uL RBC 3.49 L (4.36-5.78) 10^6/uL Hgb 11.3 L D (13.5-17.5) g/dL Hct 32.6 L (40.0-50.0) % MCV 93 (80-95) fL MCH 32.4 (27.0-33.0) pg MCHC 34.7 (32.0-36.0) % RDW 12.7 (11.8-14.1) % Plt Count 214 (130-400) 10^3/uL MPV 9.3 (8.0-11.0) fL VBG Lactate 0.9 (0.6-1.4) mmol/L Sodium 141 140 (136-145) mmol/L Potassium 3.6 3.7 (3.5-5.1) mmol/L Chloride 109 H 107 (98-107) mmol/L Carbon Dioxide 24.6 23.5 (21.0-32.0) mmol/L Anion Gap 7.4 9.5 (3-11) mmol/L BUN 10 11 (7-18) mg/dL Creatinine 0.8 0.9 (0.70-1.30) mg/dL Est GFR (CKD-EPI 2020) 98.83 95.37 (mL/min/1.73m2) Glucose 84 89 (74-106) mg/dL Calcium 8.1 L 7.8 L (8.5-10.1) mg/dL Magnesium 1.9 1.7 L (1.8-2.4) mg/dL 05/19/24 08:10 Urine Culture - Preliminary Urine - Clean Catch Gram Positive Jessika,Mixed 05/19/24 06:25 Blood Culture - Preliminary Blood NO GROWTH 24 HOURS 05/19/24 06:22 Blood Culture - Preliminary Blood NO GROWTH 24 HOURS [id number] Documentation Fingerstick Glucose Start: 05/19/24 17:08 Freq: Status: Complete Protocol: Activity Type Activity Date Activity User E-sign Co-sign Detail Recorded Client Recorded Date Recorded By Document 05/20/24 08:29 BKG DAEMON(5) [id number] 05/20/24 08:40 BKG DAEMON(6) Intake and Output - 24 Hour Total 05/19/24 05:59 thru 05/20/24 18:35 Intake Total 8313.989 Output Total 3700 Balance 4613.989 Weight 203 lb 7.787 oz Intake: IV 7088.989 Oral 1225 Output: Urine 3700 Other: Urine Color Yellow Urine Appearance Clear Urine Odor None Comment patient urinated on the floor while using commode, large amount Stool Size Moderate Stool Characteristics Soft Voiding Methods Bedside Commode Falls Risk Assessment History of Falls Previous History 05/19/24 13:06 Contributing Factors Unstable 05/19/24 13:06 Ambulatory Aids Independent 05/19/24 13:06 Tubes/Lines With any additional score 05/19/24 13:06 Gait Evaluation W/any additional score 05/19/24 13:06 Cognition No cognitive impairment 05/19/24 13:06 Fall Total Score 58 05/19/24 13:06 Level of Risk High Risk 05/19/24 13:06 Problems (Last Reviewed 05/19/24 @ 16:41 by Jefry Waters DO) Hypokalemia (Acute) Sepsis (Acute) Hypotension (Acute) Hypoxia (Acute) Pneumonia (Acute) Acidosis, lactic (Acute) Bilateral primary osteoarthritis of hip (Chronic) HTN (hypertension) (Chronic) Insulin dependent type 2 diabetes mellitus (Acute) Notes 05/19/24 12:39 Nursing Notes by Jyoti Fox report given to Suzy GONZALEZ ICU Initialized on 05/19/24 12:39 - END OF NOTE 05/19/24 10:12 Nursing Notes by Jyoti Fox report received by Lissy Onofre RN Initialized on 05/19/24 10:12 - END OF NOTE v v v v v v v v v Sending and/or Receiving Nurses: Please use comment section below to note any information pertinent to the patient hand-off not included above. Information / Comments: alert and oriented x3, NSR, Tr edema, nonprod cough, RA O2, Ronchi lower left, BM X2 , Skin intact. NS @ 42/hr. Doxy and ceftriaxone, CT in AM. CXR left pleural effusion. Report received from: Agustin Schroeder RN
[2024-05-20] MEDS: Normal Saline 1,000 ML 42 ML IV (20:26)
[2024-05-20] MEDS: Acetaminophen 325 MG TAB PO (20:32)
--- NOTE | 2024-05-20 22:12 | NUR.NOTE ---
Nursing Note: Pt arrived in room 206 at 1957 from ICU. Patient is alert and oriented, pleasant and talkative. Patient denies any pain or complaints. Noted lung sounds diminished on the left with some crackles. Patient is on telemetry. Patient is to go for CT scan in the AM. Patient has NS running at 42ml/hr. No edema noted. 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 No skin issues noted. Patient states breathing feels slightly heavy at times.
[2024-05-21] VITALS (9 sets, daily range): BP systolic 120–135; BP diastolic 70–94; PULSE 77–94; RESP 2–18; TEMP 36.3–36.9; O2SAT 96–98
[2024-05-21] MEDS: Doxycycline Hyclate 100 MG CAP PO (06:11)
[2024-05-21] MEDS: Albuterol/Ipratropium 3 ML UPD VIAL UPD ×2 (06:26→12:48)
[2024-05-21 07:06] LABS: HCT 36.1 % (40.0-50.0); HGB 12.3 g/dL (13.5-17.5); MCH 31.8 pg (27.0-33.0); MCHC 34.1 % (32.0-36.0); MCV 93 fL (80-95); MPV 8.9 fL (8.0-11.0); Platelet Count 240 10^3/uL (130-400); RBC 3.87 10^6/uL (4.36-5.78); RDW 12.2 % (11.8-14.1); RDW-SD 41.8 fL; WBC 11.69 10^3/uL (4.4-10.8)
[2024-05-21 07:19] LABS: Anion Gap 10.6 mmol/L (3-11); BUN 7 mg/dL (7-18); CO2 23.4 mmol/L (21.0-32.0); CREATININE 0.8 mg/dL (0.70-1.30); Calcium 8.9 mg/dL (8.5-10.1); Chloride 109 mmol/L (98-107); Estimated GFR 98.83 (mL/min/1.73m2); Glucose 75 mg/dL (74-106); Magnesium 1.9 mg/dL (1.8-2.4); Potassium 3.8 mmol/L (3.5-5.1); Sodium 143 mmol/L (136-145)
--- NOTE | 2024-05-21 08:00 | DI.CT_ITS ---
Exam(s) CT CHEST WO EXAM: CT CHEST WO CLINICAL HISTORY: possible L pleural effusion/empyema. TECHNIQUE: Multi planar reconstructions were performed. CONTRAST MATERIAL: None COMPARISON: CT CT ABDOMEN PELVIS WO/W from 05/01/2020 CR,XR XR PORTABLE CHEST AP from 05/20/2024 FINDINGS: CHEST: LUNGS: Is significant area of infiltrate with air bronchograms evident in the left lower lobe infrahi lar region, this corresponding to what is seen on chest x-ray. There is also a small ipsilateral lef t pleural effusion. Milder patchy infiltrate is noted in the right lower lobe posterior basal segmen t. There is no pleural effusion on the right side. There is a peripherally located small 3 mm nodule in the left upper lobe. This is probably a benign granuloma. MEDIASTINUM: There is no obvious hilar nor mediastinal adenopathy. Visualized thyroid unremarkable.No obvious axillary adenopathy CARDIAC: Heart size is normal. There is no pericardial effusion.Caliber of the thoracic aorta is wit hin normal limits. VISUALIZED UPPER ABDOMEN:Cholelithiasis noted. No adrenal masses. There is a ring catheter around t he GE junction/weight loss device. The lower most image of this chest study reveals focus of air adj acent to the gallbladder. This is difficult to evaluate accurately with respect to this being relate d to free air versus air within the a hepatic flexure of the colon or within a diverticulum. OSSEOUS: No significant osseous lesions.No fractures.. IMPRESSION: 1. There is significant area of infiltrate in the left lower lobe, this corresponding to what is seen on recent chest radiograph. Small ipsilateral left pleural effusion. 2. Milder patchy infiltrate noted in the right lower lobe posterior basal segment. No pleural effusi on on the right side. 3. Significant incidental abdominal findings as above RADIATION DOSE DELIVERED: 259.94mGy.cm Total DLP DATA REPOSITORY: All CT scans at this facility are submitted to the National Radiology Data Registry (NRDR) Dose Index Registry (DIR) with the [employer] (ACR). RADIATION OPTIMIZATION: All CT scans at this facility use at least one of these dose optimization te chniques: automated exposure control; mA and/or kV adjustment per patient size (includes targeted exa ms where dose is matched to clinical indication); or iterative reconstruction.
[2024-05-21] MEDS: guaiFENesin 200 MG/10 ML CUP 400 MG PO (08:36)
[2024-05-21] MEDS: cefTRIAXone 2 GM/50 ML BAG IVPB (08:36)
[2024-05-21] MEDS: FLUoxetine 20 MG CAP 40 MG PO (08:37)
[2024-05-21] MEDS: Tamsulosin 0.4 MG CAPCR PO (08:37)
[2024-05-21] MEDS: metFORMIN C.R. 500 MG TABCR 1500 MG PO (08:37)
[2024-05-21] MEDS: Empaglifozin 25 MG TAB PO (08:37)
[2024-05-21] MEDS: Normal Saline Flush 10 ML SYR IVP (08:38)
--- NOTE | 2024-05-21 11:44 | DSE_ITS ---
Date of service: 05/21/24 Time of Service: 13:32 DS: Diagnosis Discharge Diagnosis (1) Pneumonia: Status: Acute (2) Acidosis, lactic: Status: Acute (3) Bilateral primary osteoarthritis of hip: Status: Chronic (4) HTN (hypertension): Status: Chronic (5) Insulin dependent type 2 diabetes mellitus: Status: Acute (6) Hypoxia: Status: Acute (7) Hypotension: Status: Acute (8) Sepsis: Status: Acute (9) Hypokalemia: Status: Acute Discharge Plan Disposition Patient Disposition: Home Condition: Good Discharge Details Reason For Visit: Pneumonia Admit Date/Time: 05/19/24 10:03 Admit Provider: Jefry Waters Attending Provider: Jefry Waters Primary Care Provider: Kade Higuera Hospital Course Hospital Course: Patient initially presented to the hospital with signs and symptoms consistent with septic shock community-acquired pneumonia which improved on ceftriaxone and doxycycline. Concerning findings on chest x-ray which prompted a chest CT which only showed confirmation of left lower lobe consolidation without concerns for pleural effusion or potential empyema. Patient also required Levophed for septic shock which has been weaned off and patient has had mean arterial pressures greater than 65. Given patient's overall improvement, it was determined that he was stable for discharge and will be transitioned to p.o. cefpodoxime and doxycycline and can continue weeklong antibiotic course. Home Meds and New Rx's Prescriptions: New doxycycline hyclate 100 mg Capsule 100 mg PO BID Qty: 12 0RF cefpodoxime 200 mg tablet 200 mg PO BID Qty: 12 0RF Rx Instructions: must administer with a meal/food Continued tamsulosin 0.4 mg Capsule 0.4 mg PO DAILY insulin glargine [Lantus Solostar U-100 Insulin] 100 unit/mL (3 mL) insulin pen 20 unit subcut .QD empagliflozin 25 mg tablet 25 mg PO DAILY gabapentin 100 mg capsule See Rx Instructions PO QHS PRN Rx Instructions: orally every day at bedtime PRN; orally every day at bedtime; 1-3 tabs; cyclobenzaprine 5 mg tablet See Rx Instructions PO TID PRN Rx Instructions: 1-2 tabs orally three times a day PRN; glipizide 2.5 mg tablet extended release 24hr 2.5 mg PO DAILY meloxicam 15 mg tablet See Rx Instructions .ROUTE .COMPLEX Qty: 30 2RF Dose Instruction: TAKE ONE TABLET BY MOUTH EVERY DAY Rx Instructions: TAKE ONE TABLET BY MOUTH EVERY DAY fluoxetine 40 MG capsule 40 mg PO DAILY metformin 500 mg tablet extended release 24 hr 1,500 mg PO DAILY albuterol sulfate 90 mcg/actuation HFA aerosol inhaler 3 puff inhalation QID MDD 3 puffs every 4 hours PRN (Reason: shortness of breath or wheezing) Qty: 6.7 0RF Discontinued sildenafil [Viagra] 100 mg tablet 100 mg PO DAILY PRN Rx Instructions: administer 30 minutes to 4 hours before activity Discharge Instructions Stand Alone Forms: Nursing Discharge Form Referrals: Kade Higuera [Primary Care Provider] - 05/31/24 11:30 am (With Reece ) Activity:: Activity as Tolerated Equipment/Supplies:: No Equipment Needed Diet:: As Tolerated Discharge Orders Discharge Orders: Discharge Order (Routine); Ordered 05/21/24 Ordered By: Samy Jimenez DS: Summary Time Spent with Patient providing and/or coordinating discharge services: Greater than 30 minutes Status at Discharge Functional status at discharge: independent ambulation Overall status at discharge: patient is back to baseline Mental Status: mental status grossly normal Speech and Movement: speech and movement normal Mood: congruent mood Affect: normal affect Quality:SDOH Health Related Social Needs: No Data to Display Exam Narrative Exam Narrative: Well-appearing gentleman sitting up on the edge of the bed in no acute distress, ANO x 4, heart regular rhythm, lungs clear to auscultation bilaterally, abdomen soft, nontender, nondistended Psych Mental Status: mental status grossly normal Speech and Movement: speech and movement normal Mood: congruent mood Affect: normal affect DS: Data Vitals/I&O Vitals and I&O: Vital Signs Temperature 98.4 F 05/21/24 11:22 Temperature Source Temporal Artery Scan 05/21/24 11:22 Pulse 82 05/21/24 11:22 Pulse 109 H 05/20/24 18:32 Respiratory Rate 18 05/21/24 11:22 Respiratory Effort Incrsd Work of Breathing 05/19/24 13:06 Respiratory Depth Shallow 05/19/24 13:06 Respiratory Pattern Normal 05/19/24 13:06 Blood Pressure 132/82 05/21/24 11:22 Blood Pressure Mean 104 05/20/24 18:32 Blood Pressure Position Supine 05/19/24 13:06 Pulse Oximetry 96 05/21/24 11:22 Oxygen Delivery Method Room Air 05/21/24 11:22 Oxygen Flow Rate 0 05/21/24 11:22 Pain Level 0 05/21/24 08:54 Comment oral temp 05/19/24 07:50 Intake & Output 05/20/24 05/21/24 05/21/24 17:59 05:59 17:59 Intake Total 1937.5 / 1937.5 405.9 / 2343.4 575.4 / 575.4 Output Total 2650 / 2650 2200 / 4850 650 / 650 Balance -712.5 / -712.5 -1794.1 / -2506.6 -74.6 / -74.6 Intake: IV 1612.5 / 1612.5 165.9 / 1778.4 575.4 / 575.4 Oral 325 / 325 240 / 565 Output: Urine 2650 / 2650 2200 / 4850 550 / 550 Emesis 100 / 100 Other: Urine Color Yellow Yellow Yellow Urine Appearance Clear Clear Clear Urine Odor None Comment patient urinated on the floor while using commode, large amount multiple voids Stool Size Moderate Stool Characteristics Soft Voiding Methods Bedside Commode Toilet Toilet Data Completed and Pending Labs on day of discharge: Labs from last 24 hours 05/21/24 06:15 WBC 11.69 H RBC 3.87 L Hgb 12.3 L Hct 36.1 L MCV 93 MCH 31.8 MCHC 34.1 RDW 12.2 Plt Count 240 MPV 8.9 Sodium 143 Potassium 3.8 Chloride 109 H Carbon Dioxide 23.4 Anion Gap 10.6 BUN 7 Creatinine 0.8 Est GFR (CKD-EPI 2020) 98.83 Glucose 75 Calcium 8.9 Magnesium 1.9 Preliminary micro results at discharge 05/19/24 06:25 Blood Culture - Preliminary Blood NO GROWTH 48 HOURS 05/19/24 06:22 Blood Culture - Preliminary Blood NO GROWTH 48 HOURS PFSH All Active Problems (Updated 05/21/24 @ 11:44 by Samy Jimenez MD) Hypokalemia (Acute) Sepsis (Acute) Hypotension (Acute) Hypoxia (Acute) Pneumonia (Acute) Acidosis, lactic (Acute) Bilateral primary osteoarthritis of hip (Chronic) Bilateral intra-articular Depo-Medrol injections: 03/23/2024 Hamstring tightness of both lower extremities (Acute) Patellar tendinitis of both knees (Acute) Left knee pain (Acute) Right knee pain (Acute) Paresthesias (Acute) Corns and callosities (Acute) Hemangioma (Acute) Tubular adenoma (Acute ~07/2023) Screen for colon cancer (Acute) Atypical pigmented skin lesion (Acute) Colon adenomas (Acute) 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) [place]-Schlatter's disease (Acute) Hyperlipidemia (Acute) Sensorineural hearing loss (SNHL) of right ear with unrestricted hearing of left ear (Acute) Pain of right patellofemoral joint (Chronic) Depo-Medrol injection: 04/27/2024 Pain of left patellofemoral joint (Chronic) Depo-Medrol injection: 04/27/2024 Primary hypoadrenalism (Acute) Dysthymic disorder (Acute) HTN (hypertension) (Chronic) Insulin dependent type 2 diabetes mellitus (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 Gross hematuria BMI 28.0-28.9,adult Lower urinary tract symptoms (LUTS) Balanitis Concussion Seborrheic keratosis Exposure to hepatitis B Lower urinary tract infection Obesity Surgical History History of removal of nevus Hx of laparoscopic gastric banding (~12/25/10) 2009 colonoscopy (~07/2023) path sent Social History Smoking/Tobacco Use Status: Never Smoking risk assessment performed?: Yes Alcohol Intake: current Alcohol Intake frequency: holidays/special occasions only Drug use: Never Substance use type: does not use Household members: spouse and children Housing: house Number of Children: 1 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 Do you feel safe at home: Yes Do you feel safe in your relationship?: Yes Time Spent with Patient Time Spent with Patient: <45 minutes Time was spent: preparing to see the patient(eg.review tests), obtaining and/or reviewing separately otained hiistory, ordering medications,tests, procedures, referring, communicating with other health healthcare network consultant, indepentently interpreting results, counseling the patient and care coordination
--- NOTE | 2024-05-21 13:20 | PDOC.CMDIS ---
Date of service: 05/21/24 Time of Service: 11:00 LACE Index Scoring Tool Questions: Length of Stay (in days): 2 Was the patient admitted via the E.D.?: Yes E.D. Visits: 1 Answers: Total Score: 6 Risk of Readmission: Low Risk Care Management Discharge Plan Reason for Hospitalization: pneumonia Discharge Plan: Rob is discharged home today with new orders for 2 oral antibiotics. He will transport home in a private vehicle with his , Luz Elena. He will f/u with his PCP office on 05/25. He will continue per his plan of care. Patient/Family Education Needs: Review of discharge instructions, activity, limitations and follow up plan. Discuss ask me 3. SDOH Health Related Social Needs: No Data to Display
[2024-05-22 15:15] LABS: Streptococcus Pneumoniae Ag, U Negative (Negative)
== END 2024-05-21 14:27 | disposition home or self-care (01) | DRG 871 ==
LOC: ER 08:39 → ICU 12:53 → MS 05-20 19:51
PROVIDERS: Student in an Organized Health Care Education/Training Program; Admitting Provider Internal Medicine; Emergency Provider Emergency Medicine; PCP Student in an Organized Health Care Education/Training Program; Visit Provider Internal Medicine
DX: A41.9 Sepsis, unspecified organism (principal); J18.9 Pneumonia, unspecified organism; R65.21 Severe sepsis with septic shock; E87.20 Acidosis, unspecified; E27.1 Primary adrenocortical insufficiency; M16.0 Bilateral primary osteoarthritis of hip; I10 Essential (primary) hypertension; E11.9 Type 2 diabetes mellitus without complications; Z79.4 Long term (current) use of insulin; R09.02 Hypoxemia; E87.6 Hypokalemia; W19.XXXA Unspecified fall, initial encounter; Z79.84 Long term (current) use of oral hypoglycemic drugs; Z86.0101 Personal history of adenomatous and serrated colon polyps; F34.1 Dysthymic disorder; M47.26 Other spondylosis with radiculopathy, lumbar region; H91.8X3 Other specified hearing loss, bilateral
CPT/HCPCS: 00123; 36415; 71250; 80048; 80053; 82805; 83735; 84145; 85027; 87040; 87637; 93005; 96361; 96365; 96366; 96367; 96375; 99291; J1650; 70450; 71045; 72125; 81003; 81015; 83605; 84443; 84484; 85025; 87086; 87899; 93010; 94640; 94760; 99223; 99233; 99239; J0131; J0696; J1815; J3475; J3480; J3490; J7620

== ENCOUNTER 2024-05-31 13:21 | Outpatient (REF) | payer BC, SELFPAY ==
--- OUTSIDE RECORDS SUMMARY | 2024-05-31 13:25 | XMS_ITS | Encounter Summary ---
Author Organization [facility] Address [address] [place] [address] Care Team Providers Care Molder Vacuum Name Role Phone Unknown, Provider Primary Care Provider [phone] Encounter Details Date Type Department Care Team (Late st Contact Info) Description 07/08/2014 Results Only [facility] [phone] Nasrin Ferguson, [address] [place] [address] Social History Tobacco Use Types Packs/Day Years [...] ? OPAL JALLOH ? Accession #: ? [id number] ? : ? 1960 (Age: 53) ??M ? Collect Date: ? 07/08/2014 ? Location: ? [facility] ? Receive Date: ? 07/09/2014 ? Provider: NASRIN FERGUSON DO Copy to: URIEL ROSENBERG MD ? Final Pathologic Diagnosis: A. ??SKIN OF BUDDHISM, RIGHT, SHAVE BIOPSY:- Seborrheic keratosis. B. ??SKIN OF BUDDHISM, LEFT INFERIOR, SHAVE BIOPSY: - Seborrheic keratosis. C. ??SKIN OF BUDDHISM, LEFT SUPERIOR, SHAVE BIOPSY: - Seborrheic keratosis. Document reviewed and electronically signed by: BRANDY CAM MD Report ??Date: 07/10/2014 16:39 By the signature above, the attending physician certifies that he/she has personally conducted a gross and/or microscopic examination of the described specimens and rendered or confirmed the above diagnosis. Specimen(s) Received: A. ?Right samaritan B. ? Left samaritan (inferior) C. ? Left samaritan (superior) Clinical History: Hyperpigmented skin lesions; clinical diagnosis code: ??239.2 Gross Description: A. ?Received in formalin labelled with proper patient identification (initials B, R) and 1. right samaritan is a shave biopsy of an irregular moran granular friable nodule (1.1 x 0.9 x 0.2 cm). ??Trisected and submitted in A1. B. ?Received in formalin labelled with proper patient identification (initials B, R) and 2. left samaritan inferior is a shave biopsy of an irregular moran-cui granular papule (0.5 x 0.4 x 0.1 cm). Bisected and submitted in B1. C. ?Received in formalin labelled with proper patient identification (initials B, R) and 3. left samaritan superior is a shave biopsy of moran-white [...] Pecktte 07/10/2014 08:28 AM End of Report [facility] 07/08/2014 17:3 3 EST 07/09/2014 17:33 EST Nasrin Ferguson DO PATHOLOGY ORDER [facility] [address] [place] [address] documented in this encounter Visit Diagnoses Not on filedocumented in this encounter Care Teams Molder Vacuum Relationship Specialty Start Date End Date Unknown, Provider, PCP - General 06/15/13 12/13/18 documented as of this encounter
--- OUTSIDE RECORDS SUMMARY | 2024-05-31 13:25 | XMS_ITS | Encounter Summary ---
Author Organization [facility] Address [address] [place] [address] Care Team Providers Care Service Station Operator Name Role Phone Dom Kennedy MD Primary Care Provider [phone] Encounter Details Date Type Department Care Team (Late st Contact Info) Description 03/17/2023 Lab Requisition [facility] Pathology & Laboratory Medicine - [address] [phone] Outr Resulting Lab, Provider Social History Tobacco [...] PSA 1.1 <=4.5 ng/mL 03/17/2023 22:45 EDT [facility] Blood VENOUS BLOOD / Unknown 03/17/2023 9:50 EDT 03/17/2023 21:48 EDT Narrative [facility] - 03/17/2023 22:45 EDT NOTE: Serum PSA concentration should not be interpreted as absolute evidence for the presence or absence of malignant disease. Assayed on Siemens ADVIA Centaur XPT using chemiluminescent technology.??Values obtained by using different assay methods cannot be used interchangeably. Provider Outr Resulting Lab CHEMISTRY & BLOOD GAS ORDERABLES [facility] [address] [place] [address] documented in this encounter Visit Diagnoses Not on filedocumented in this encounter Care Teams Service Station Operator Relationship Specialty Start Date End Date Dom Kennedy MD [address] [place], [place] [id number] PCP - General 12/14/18 documented as of this encounter
--- OUTSIDE RECORDS SUMMARY | 2024-05-31 13:25 | XMS_ITS | Clinical Summary ---
Author Organization [facility] Address [address] [place] [address] Care Team Providers Care Campus Coordinator Name Role Phone Dom Kennedy MD Primary Care Provider [phone] Social History Tobacco Use Types Packs/Day Years [...] COVID-19 Vaccine (2022-24 season) 2024 Care Teams Campus Coordinator Relationship Specialty Start Date End Date Dom Kennedy MD [facility] [place] [address] PCP - General 12/14/18
--- OUTSIDE RECORDS SUMMARY | 2024-05-31 13:25 | XMS_ITS | Encounter Summary ---
Author Organization [facility] Address [address] [place] [address] Care Team Providers Care Alumni Relations Manager Name Role Phone Unknown, Provider Primary Care Provider [phone] Encounter Details Date Type Department Care Team (Late st Contact Info) Description 12/11/2018 Results Only [facility] [phone] Maria Guadalupe Kennedy MD [address] [place] [address] Social History Tobacco Use Types Packs/Day Years [...] ? OPAL JALLOH ? Accession #: ? [id number] ? : ? 1960 (Age: 57) ??M [...] (ASCP) 12/12/2018 4:02 PM End of Report [facility] 12/11/2018 15:4 1 EDT 12/12/2018 15:41 EDT Maria Guadalupe Kennedy MD PATHOLOGY ORDERABLES [facility] [address] [place] [address] documented in this encounter Visit Diagnoses Not on filedocumented in this encounter Care Teams Alumni Relations Manager Relationship Specialty Start Date End Date Unknown, Provider, PCP - General 06/15/13 12/13/18 documented as of this encounter
--- OUTSIDE RECORDS SUMMARY | 2024-05-31 13:25 | XMS_ITS | Encounter Summary ---
Author Organization [facility] Address [address] [place] [address] Care Team Providers Care Java Programmer Analyst Name Role Phone Dom Kennedy MD Primary Care Provider [phone] Encounter Details Date Type Department Care Team (Late st Contact Info) Description 05/09/2020 Lab Requisition [facility] Pathology & Laboratory Medicine - [address] [phone] Outr Resulting Lab, Provider Social History Tobacco [...] rt-PCR Result NEGATIVE Negative 05/10/2020 21:36 EDT [facility] Comment: 2019-novel Coronavirus (2019-nCoV) [...] in accordance with CLIA regulations, [employer] (CAP) guidelines (Nov 01, 2019), and FDA guidance (Oct 13, 2019). This test is only for use under the Food and Drug Administration's Emergency Use Authorization. Swab ENTIRE NASOPHARYNX / Unknown 05/09/2020 10:54 EDT 05/09/2020 17:25 EDT Provider Outr Resulting Lab MICROBIOLOGY - GENERAL ORDERABLES [facility] [place], [place] * COVID-19 TESTING (05/09/2020 10:54 EDT) COVID-19 rt-PCR Result NEGATIVE Negative 05/10/2020 23:35 EDT [facility] Comment: 2019-novel Coronavirus (2019-nCoV) not detected [...] in accordance with CLIA regulations, College of [place] (CAP) guidelines (Nov 01, 2019), and FDA guidance (Oct 13, 2019). This test is only for use under the Food and Drug Administration's Emergency Use Authorization. Performing Lab [facility] 05/10/2020 23:35 EDT [facility] Swab 05/09/2020 10:5 4 EDT 05/09/2020 17:25 EDT Provider Outr Resulting Lab MICROBIOLOGY - GENERAL ORDERABLES [facility] [address] [place] [address] [facility] [place] documented in this encounter Visit Diagnoses Not on filedocumented in this encounter Care Teams Java Programmer Analyst Relationship Specialty Start Date End Date Dom Kennedy MD [address] [place] [address] PCP - General 12/14/18 documented as of this encounter
--- OUTSIDE RECORDS SUMMARY | 2024-05-31 13:25 | XMS_ITS | Encounter Summary ---
Author Organization [facility] Address [address] [place] [address] Care Team Providers Care Vp Securities Name Role Phone Unknown, Provider Primary Care Provider [phone] Encounter Details Date Type Department Care Team (Latest Contact Info) Description 12/11/2018 14:55 EDT - 12/11/2018 23:59 EDT Hospital Encounter [address] [address] Unknown, Provider, Discharge Disposition: Home or Self [...] on filedocumented in this encounter Care Teams Vp Securities Relationship Specialty Start Date End Date Unknown, Provider, PCP - General 06/15/13 12/13/18 documented as of this encounter
--- OUTSIDE RECORDS SUMMARY | 2024-05-31 13:25 | XMS_ITS | Encounter Summary ---
Author Organization [facility] Address [address] [place] [address] Care Team Providers Care Data Support Specialist Name Role Phone Dom Kennedy MD Primary Care Provider [phone] Encounter Details Date Type Department Care Team (Late st Contact Info) Description 02/05/2022 Lab Requisition [facility] Pathology & Laboratory Medicine - [address] [phone] Outr Resulting Lab, Provider Social History Tobacco [...] PSA 1.6 <=4.5 ng/mL 02/05/2022 21:58 EDT [facility] Blood VENOUS BLOOD / Unknown 02/05/2022 8:48 EDT 02/05/2022 20:06 EDT Narrative [facility] - 02/05/2022 21:58 EDT NOTE: Serum PSA concentration should not be interpreted as absolute evidence for the presence or absence of malignant disease. Assayed on Siemens ADVIA Centaur XPT using chemiluminescent technology.??Values obtained by using different assay methods cannot be used interchangeably. Provider Outr Resulting Lab CHEMISTRY & BLOOD GAS ORDERABLES [facility] [address] [place] [address] documented in this encounter Visit Diagnoses Not on filedocumented in this encounter Care Teams Data Support Specialist Relationship Specialty Start Date End Date Dom Kennedy MD [address] [place], [place] [id number] PCP - General 12/14/18 documented as of this encounter
--- OUTSIDE RECORDS SUMMARY | 2024-05-31 13:25 | XMS_ITS | Encounter Summary ---
Author Organization [facility] Address [address] [place] [address] Care Team Providers Care Salesperson Burial Plots Name Role Phone Unknown, Provider Primary Care Provider Encounter Details Date Type Department Care Team (Latest Contact Info) Description 07/12/2014 15:01 EST - 07/12/2014 23:59 EST Hospital Encounter [address] [address] Unknown, Provider, Discharge Disposition: Home or Self Care Social History Tobacco Use Types Packs/Day Years Used Date Smoking Tobacco: Never Assessed Sex and Gender Information Value Date Recorded Sex Assigned at Not on file Gender Identity Not on file Sexual Orientation Not on file documented as of this encounter Discharge Disposition Disposition Code Departure Means Destination Home or Self Usp documented in this encounter Plan of Treatment Not on file documented as of this encounter Visit Diagnoses Not on filedocumented in this encounter Care Teams Salesperson Burial Plots Relationship Specialty Start Date End Date Unknown, Provider, PCP - General 06/15/13 12/13/18 documented as of this encounter
--- OUTSIDE RECORDS SUMMARY | 2024-05-31 13:25 | XMS_ITS | Encounter Summary ---
Author Organization [facility] Address [address] [place] [address] Care Team Providers Care Director Loss Prevention Name Role Phone Dom Kennedy MD Primary Care Provider [phone] Encounter Details Date Type Department Care Team (Late st Contact Info) Description 10/08/2022 Lab Requisition [facility] Pathology & Laboratory Medicine - [address] [phone] Outr Resulting Lab, Provider Social History Tobacco [...] Outr Resulting Lab MICROBIOLOGY - GENERAL ORDERABLES [facility] [address] [place] [address] * COVID-19 TESTING (10/07/2022 12:43 EST) COVID-19 rt-PCR Result Negative Negative 10/09/2022 12:09 EST [facility] Comment: This test has not [...] history, and epidemiological information. Performed on the [employer] Fusion instrument Performing Lab [facility] Lab 10/09/2022 12:09 EST [facility] Swab 10/07/2022 12:4 3 EST 10/08/2022 18:40 EST Provider Outr Resulting Lab MICROBIOLOGY - GENERAL ORDERABLES [facility] [address] [place] [address] documented in this encounter Visit Diagnoses Not on filedocumented in this encounter Care Teams Director Loss Prevention Relationship Specialty Start Date End Date Dom Kennedy [place] [place] [address] PCP - General 12/14/18 documented as of this encounter
--- OUTSIDE RECORDS SUMMARY | 2024-05-31 13:25 | XMS_ITS | Encounter Summary ---
Author Organization [facility] Address [facility] [place] [address] Care Team Providers Care Merchant Miller Name Role Phone Dom Kennedy MD Primary Care Provider [phone] Reason for Visit * Reason Comments Medication Refill Encounter Details Date Type Department Care Team (Late st Contact Info) Description 02/10/2022 Refill [place] [address] Td Blanco MD [facility] [place] [address] Type 2 diabetes mellitus with hyperglycemia, with [...] insulin documented in this encounter Care Teams Merchant Miller Relationship Specialty Start Date End Date Dom Kennedy MD PCP - General 12/28/16 documented as of this encounter
--- OUTSIDE RECORDS SUMMARY | 2024-05-31 13:25 | XMS_ITS | Encounter Summary ---
Author Organization [facility] [address] Care Team Providers Care Insole Rasper Name Role Phone Dom Kennedy MD Primary Care Provider [phone] Reason for Visit * Reason Comments Medication Refill Encounter Details Date Type Department Care Team (Late st Contact Info) Description 02/25/2023 [place] [address] Td Blanco MD [facility] [place] [address] Type 2 diabetes mellitus with hyperglycemia, with [...] insulin documented in this encounter Care Teams Insole Rasper Relationship Specialty Start Date End Date Dom Kennedy MD PCP - General 12/28/16 documented as of this encounter
--- OUTSIDE RECORDS SUMMARY | 2024-05-31 13:25 | XMS_ITS | Encounter Summary ---
Author Organization [facility] Address [address] [place] [address] Care Team Providers Care Imager Name Role Phone Unknown, Provider Primary Care Provider Encounter Details Date Type Department Care Team (Latest Contact Info) Description 06/15/2013 8:17 EDT - 06/15/2013 23:59 EDT Hospital Encounter [address] [address] Unknown, Provider, Discharge Disposition: Home or Self [...] on filedocumented in this encounter Care Teams Imager Relationship Specialty Start Date End Date Unknown, Provider, PCP - General 06/15/13 12/13/18 documented as of this encounter
--- OUTSIDE RECORDS SUMMARY | 2024-05-31 13:25 | XMS_ITS | Clinical Summary ---
Author Organization [facility] Address [facility] [place] [address] Care Team Providers Care Knockout Machine Operator Name Role Phone Dom Kennedy MD Primary Care Provider [phone] Allergies Active Allergy Reactions Criticality Noted Date [...] glucose scanning reader (FreeStyle Arleen 14 Day [place]) MiscIndications:Typ e 2 diabetes mellitus with hyperglycemia, with long-term current use of insulin 1 Device by [facility].(Non-Drug; Combo Route) route as needed. 1 each [...] 09/11/2015 Overview (09/11/2015): ?? Nuclear stress test [facility] in [...] Next Due Influenza Unspecified Formulation 06/23/2011,08/2009 Pneumococcal 23-Valent Polysaccharide (Pneumovax 23) 08/15/2006 Tdap (Adacel, Boostrix) 01/04/2012 Social History Tobacco Use Types Packs/Day [...] Recently Relevant to Health Maintenance Care Teams Knockout Machine Operator Relationship Specialty Start Date End Date Dom Kennedy MD PCP - General 12/28/16
--- OUTSIDE RECORDS SUMMARY | 2024-05-31 13:25 | XMS_ITS | Encounter Summary ---
[place] [address] Care Team Providers Care Buckshot Swage Operator Name Role Phone Dom Kennedy MD Primary Care Provider [phone] Reason for Referral * Consultation (Routine) - Authorized Specialty Diagnoses / Procedures Referred By Portia stuart Referred To Contact Urology Diagnoses Benign prostatic hyperplasia with lower urinary tract symptoms, symptom details unspecified Kade Higuera PA [address] [place] [address] [facility] [place] [address] Referral ID Status Reason Start Date Expiration Date Visits Requested Visits Authorized [id number] Authorized Consult, Test & Treat PCP Updated and/or Approved 01/16/2024 01/15/2025 6 6 Encounter Details Date Type Department Care Team (Late st Contact Info) Description 01/16/2024 Transcribe Orders eDH Incoming Referrals [phone] Kade Higuera PA [address] [place] [address] Benign prostatic hyperplasia with lower [...] unspecified documented in this encounter Care Teams Buckshot Swage Operator Relationship Specialty Start Date End Date Dom Kennedy MD PCP - General 12/28/16 documented as of this encounter
--- OUTSIDE RECORDS SUMMARY | 2024-05-31 13:25 | XMS_ITS | Encounter Summary ---
Author Organization [facility] Address [address] [place] [address] Care Team Providers Care Mid Level Developer Name Role Phone Dom Kennedy MD Primary Care Provider Encounter Details Date Type Department Care Team (Late st Contact Info) Description 03/18/2023 Lab Requisition [facility] Pathology & Laboratory Medicine - [address] [address] Dom Kennedy MD [address] [place] [address] [place], [place] [phone] Encounter for other general examination Social History [...] management options, if applicable. 03/21/2023 10:35 EDT [facility] Final Diagnosis A. SKIN OF BAHAI, LEFT, SHAVE BIOPSY: - Seborrheic keratosis, irritated and inflamed. 03/21/2023 10:35 [facility] Attestation By the signature below, the attending physician certifies that they have 1) personally conducted a gross and/or microscopic examination of the described specimen(s), and/or personally interpreted the results of laboratory testing of the described specimen(s), and 2) personally rendered or confirmed the above diagnosis. 03/21/2023 10:35 [facility] at 1035 Microscopic Description Orthohyperkeratosis [...] vacuolar change and keratinocyte necrosis. 03/21/2023 10:35 [facility] Clinical History Fleshy plaque left buddhism, growing SK vs squamous 03/21/2023 10:35 [facility] Gross Description A. Received in formalin labelled with proper patient identification (initials B, R) and left buddhism is a 0.8 x 0.4 by less than 0.1 cm white-moran, mottled, focally papular skin shave which is inked blue, bisected and is submitted in its entirety in A1. FITO CADE(ASCP) 03/18/2023 15:12 03/21/2023 10:35 T [facility] Performing Lab [facility] 03/21/2023 10:35 [facility] Scanned Images 03/21/2023 10:35 [facility] Tissue TISSUE SPECIMEN FROM SKIN / Unknown 03/17/2023 10:00 EDT 03/18/2023 10:03 EDT Dom Kennedy MD PATHOLOGY ORDERABLES [facility] [address] [place] [address] documented in this encounter Visit Diagnoses Diagnosis Encounter for other general examination documented in this encounter Care Teams Mid Level Developer Relationship Specialty Start Date End Date Dom [place] [address] PCP - General 12/14/18 documented as of this encounter
--- OUTSIDE RECORDS SUMMARY | 2024-05-31 13:25 | XMS_ITS | Encounter Summary ---
[place] [address] Care Team Providers Care Delivery Of Shopping News Name Role Phone Dom Kennedy MD Primary Care Provider [phone] Reason for Referral * Consultation (Routine) - Authorized Specialty Diagnoses / Procedures Referred By Portia stuart Referred To Contact Urology Diagnoses Lower urinary tract symptoms (LUTS) Dom Kennedy MD [address] [place] [address] [place] [address] [facility] [place] [address] Referral ID Status Reason Start Date Expiration Date Visits Requested Visits Authorized [id number] Authorized Consult, Test & Treat PCP Updated and/or Approved 3 06/27/2024 6 6 Encounter Details Date Type Department Care Team (Late st Contact Info) Description 07/05/2023 Transcribe Orders eD Incoming Referrals [phone] Dom Kennedy MD [address] [place] [address] [address] [place], [place] [id number] Lower urinary tract symptoms (LUTS) Social History [...] system documented in this encounter Care Teams Delivery Of Shopping News Relationship Specialty Start Date End Date Dom Kennedy MD PCP - General 12/28/16 documented as of this encounter
--- OUTSIDE RECORDS SUMMARY | 2024-05-31 13:25 | XMS_ITS | Encounter Summary ---
Author Organization [facility] Address [address] [place] [address] Care Team Providers Care Gis Consultant Name Role Phone Dom Kennedy MD Primary Care Provider [phone] Encounter Details Date Type Department Care Team (Late st Contact Info) Description 01/14/2021 Lab Requisition [facility] Pathology & Laboratory Medicine - [address] [phone] Outr Resulting Lab, Provider Social History Tobacco [...] 0.0 - 4.5 ng/mL 01/14/2021 17:30 EDT [facility] Blood VENOUS BLOOD / Unknown 01/14/2021 9:01 EDT 01/14/2021 15:44 EDT Narrative [facility] - 01/14/2021 17:30 EDT NOTE: Serum PSA concentration should not be interpreted as absolute evidence for the presence or absence of malignant disease. Assayed on Siemens ADVIA Centaur XPT using chemiluminescent technology.??Values obtained by using different assay methods cannot be used interchangeably. Provider Outr Resulting Lab CHEMISTRY & BLOOD GAS ORDERABLES [facility] [address] [place] [address] documented in this encounter Visit Diagnoses Not on filedocumented in this encounter Care Teams Gis Consultant Relationship Specialty Start Date End Date Dom Kennedy MD [facility] [place] [address] PCP - General 12/14/18 documented as of this encounter
--- OUTSIDE RECORDS SUMMARY | 2024-05-31 13:25 | XMS_ITS | Encounter Summary ---
Author Organization [facility] Address [address] [place] [address] Care Team Providers Care Line Puller Name Role Phone Unknown, Provider Primary Care Provider [phone] Encounter Details Date Type Department Care Team (Late st Contact Info) Description 06/15/2013 Results Only [facility]- [facility] [phone] Destiny Caldwell, DO [address] [place] [address] Social History Tobacco Use Types [...] ? OPAL JALLOH ? Accession #: ? [id number] ? : ? 1960 (Age: 52) ??M [...] Caldwell DO PATHOLOGY ORDERABLES Performing Organization Address City/State/[facility] Co de Phone Number SARAH JOHNSON [address] [place] [address] documented in this encounter Visit Diagnoses Not on filedocumented in this encounter Care Teams Line Puller Relationship Specialty Start Date End Date Unknown, Provider, PCP - General 06/15/13 12/13/18 documented as of this encounter
--- OUTSIDE RECORDS SUMMARY | 2024-05-31 13:25 | XMS_ITS | Encounter Summary ---
Author Organization [facility] Address [address] [place] [address] Care Team Providers Care Supervisor Asphalt Paving Name Role Phone Dom Kennedy MD Primary Care Provider [phone] Encounter Details Date Type Department Care Team (Late st Contact Info) Description 07/25/2023 Lab Requisition [facility] Pathology & Laboratory Medicine - [address] [address] Ramy Knapp MD [address] [place] [address], [address] [place] [address] Encounter for screening for malignant [...] management options, if applicable. 07/26/2023 16:08 EST [facility] Final Diagnosis A. SKIN BELOW KNEE, RIGHT, EXCISION: - Hemangioma. B. COLON POLYP, 75 CM, BIOPSY: - Tubular adenoma. See comment. 07/26/2023 16:08 [facility] Diagnosis Comment Specimen B been reviewed by Dr. Barba who concurs with the above diagnosis. 07/26/2023 16:08 [facility] Attestation By the signature below, the attending physician certifies that they have 1) personally conducted a gross and/or microscopic examination of the described specimen(s), and/or personally interpreted the results of laboratory testing of the described specimen(s), and 2) personally rendered or confirmed the above diagnosis. 07/26/2023 16:08 [facility] at 1607 Clinical History A. Bx lesion RT knee, vascular appearing skin lesion-pigmented; B. Colon polyp @ 75 cm, screening colonoscopy, polyp 07/26/2023 16:08 [facility] Gross Description A. Received in [...] B1. FITO TEJEDA(ASCP) 07/26/2023 7:44 07/26/2023 16:08 [facility] Performing Lab [facility] 07/26/2023 16:08 [facility] Scanned Images 07/26/2023 16:08 [facility] Tissue COLON STRUCTURE / Unknown 07/25/2023 10:47 EST 07/25/2023 18:16 EST Tissue specimen (specimen) COLON STRUCTURE / Unknown 07/25/2023 10:47 EST 07/25/2023 18:16 EST Ramy Knapp MD PATHOLOGY ORDERABLES [facility] [address] [place] [address] documented in this encounter Visit Diagnoses Diagnosis Encounter for screening for malignant neoplasm of colon Special screening for malignant neoplasms, colon documented in this encounter Care Teams Supervisor Asphalt Paving Relationship Specialty Start Date End Date Dom Kennedy MD [facility] [place] [address] PCP - General 12/14/18 documented as of this encounter
--- OUTSIDE RECORDS SUMMARY | 2024-05-31 13:25 | XMS_ITS | Encounter Summary ---
Author Organization [facility] Address [address] [place] [address] Care Team Providers Care Barrel Racer Name Role Phone Dom Kennedy MD Primary Care Provider [phone] Encounter Details Date Type Department Care Team (Late st Contact Info) Description 02/08/2020 Lab Requisition [place] Pathology & Laboratory Medicine - [address] [id number] Outr Resulting Lab, Provider Social History Tobacco [...] 4.5 ng/mL 02/11/2020 9:59 EDT [facility] Blood VENOUS BLOOD / Unknown 02/08/2020 9:15 EDT 02/08/2020 20:44 EDT Narrative [facility] - 02/11/2020 9:59 EDT NOTE: Serum PSA concentration should not be interpreted as absolute evidence for the presence or absence of malignant disease. Assayed on Siemens ADVIA Centaur XPT using chemiluminescent technology.??Values obtained by using different assay methods cannot be used interchangeably. Provider Outr Resulting Lab CHEMISTRY & BLOOD GAS ORDERABLES [facility] [address] [place] [address] documented in this encounter Visit Diagnoses Not on filedocumented in this encounter Care Teams Barrel Racer Relationship Specialty Start Date End Date Dom Kennedy MD [address] [place] [address] PCP - General 12/14/18 documented as of this encounter
--- OUTSIDE RECORDS SUMMARY | 2024-05-31 13:25 | XMS_ITS | Referral Summary ---
Author Organization [facility] Address [address] [place] [address] Care Team Providers Care Investigation Division Lieutenant Name Role Phone Dom Kennedy MD Primary Care Provider [phone] Social History Tobacco Use Types Packs/Day Years Used Date Smoking Tobacco: Never Assessed Interpersonal Safety Answer Date Record ed Physically Hurt Never 03/16/2020 Verbally Threaten Not on file 03/16/2020 Sex and Gender Information Value Date Recorded Sex Assigned at Not on file Gender Identity Not on file Sexual Orientation Not on file Plan of Treatment Not on file Care Teams Investigation Division Lieutenant Relationship Specialty Start Date End Date Dom Kennedy MD [address] [place] [address] PCP - General 12/14/18
--- OUTSIDE RECORDS SUMMARY | 2024-05-31 13:26 | XMS_ITS | Encounter Summary ---
Author Organization [facility] Address [facility] [place] [address] Care Team Providers Care Senior Electronics Engineer Name Role Phone Dom Kennedy MD Primary Care Provider Reason for Visit * Consultation (Routine) - Closed Specialty Diagnoses / Procedures Referred By Portia stuart Referred To Contact Urology Diagnoses GROSS HEMATURIA Dom Kenndey MD [address] [place] [address] [place] [address] [facility] [place] [address] Referral ID Status Reason Start Date Expiration Date Visits Re quested Visits Authorized [id number] Closed 05/13/2020 05/13/2021 1 1 Encounter Details Date Type Department Care Team (Late st Contact Info) Description 05/28/2020 8:00 AM EDT [place] [phone] [facility] [place] [address] Gross hematuria Social History Tobacco Use Types [...] Referred him to Nadege Gaona NP at [facility]. He had the following tests and [...] HEALTH: good REVIEW OF SYSTEMS: Negative. -- SLOT FLOORMAN - No headaches or loss of consciousness [...] hematuria documented in this encounter Care Teams Senior Electronics Engineer Relationship Specialty Start Date End Date Dom Kennedy MD PCP - General 12/28/16 documented as of this encounter
--- OUTSIDE RECORDS SUMMARY | 2024-05-31 13:26 | XMS_ITS | Encounter Summary ---
Author Organization [facility] Address [facility] [place] [address] Care Team Providers Care Pellet Press Operator Name Role Phone Dom Kennedy MD Primary Care Provider [phone] Encounter Details Date Type Department Care Team (Latest Contact Info) Description 07/22/2020 10:26 PM EST - 07/22/2020 11:59 PM EST Hospital [place] [address] Discharge Disposition: Home Social History Tobacco Use [...] on the instructions for use provided by [employer] and additional guidance provided by CDC and FDA. Testing is performed in the Clinical Genomics and [facility] Technology Laboratory within the Department of Pathology and Laboratory Medicine at [facility], certified under the Clinical Laboratory [...] fact sheets at the following FDA website: https://www.fda.gov/medical-devices/civudtomrzp-idomgpt-2173-rxqcb-62-vrewbtxnc- use-a josgsmnjeozxh-xybshpn-iandggl/sgqus-mqwtqrifqmc-hsru SARS-CoV-2 RNA Source Nasal [facility] Specimen from nose (specimen) Other / Unknown 07/22/2020 4:35 PM EST 07/22/2020 11:24 PM EST Narrative Resulting Agency Comment Spec In Lab Chantel Mcgee MD MOLECULAR ORDERABLES [facility] [place] [address] documented in this encounter Visit Diagnoses Not on filedocumented in this encounter Care Teams Pellet Press Operator Relationship Specialty Start Date End Date Dom Kennedy MD PCP - General 12/28/16 documented as of this encounter
--- OUTSIDE RECORDS SUMMARY | 2024-05-31 13:26 | XMS_ITS | Encounter Summary ---
[place] [address] Care Team Providers Care Customer Support Agent Name Role Phone Aftab Coles MD, Dom Conrad Primary Care Provider [phone] Encounter Details Date Type Department Care Team ([facility] st Contact Info) Description 09/11/2010 4:00 PM EST Office Visit [facility] [address] [place] [address] Bijan Wallace, DPM [address] [place], [place] [address] Social History Tobacco Use Types Packs/Day Years Used Date Smoking Tobacco: Never Assessed Sex and Gender Information Value Date Recorded Sex Assigned at Not on file Gender Identity Not on file Sexual Orientation Not on file documented as of this encounter Plan of Treatment Not on file documented as of this encounter Visit Diagnoses Not on filedocumented in this encounter Care Teams Customer Support Agent Relationship Specialty Start Date End Date Dom Ugalde Jr., MD PCP - General 09/09/10 09/29/10 documented as of this encounter
--- OUTSIDE RECORDS SUMMARY | 2024-05-31 13:26 | XMS_ITS | Encounter Summary ---
Author Organization [facility] Address [facility] [place] [address] Care Team Providers Care Program Paraprofessional Name Role Phone Dom Kennedy MD Primary Care Provider [phone] Encounter Details Date Type Department Care Team (Late st Contact Info) Description 09/08/2020 11:20 AM EST Office Visit Urology at [facility] [place] [phone] Estrella Hickman MD [facility] [place] [address] Gross hematuria; Benign localized prostatic hyperplasia with [...] Referred him to Nadege Gaona NP at [place] [facility]. He had the following tests and [...] HEALTH: good REVIEW OF SYSTEMS: Negative. -- CONCRETE ROD BUSTER - No headaches or loss of consciousness [...] (LUTS) documented in this encounter Care Teams Program Paraprofessional Relationship Specialty Start Date End Date Dom Kennedy MD PCP - General 12/28/16 documented as of this encounter
--- OUTSIDE RECORDS SUMMARY | 2024-05-31 13:26 | XMS_ITS | Encounter Summary ---
[place] [address] Care Team Providers Care Senior Hr Generalist Name Role Phone Michael Mims MD Primary Care Provider [phone] Encounter Details Date Type Department Care Team ([facility] st Contact Info) Description 11/10/2012 10:45 AM EDT Follow-Up [facility] [address] [place] [phone] Ramirez Ahuja MD [address] [place] [address] Social History Tobacco Use Types Packs/Day Years Used Date Smoking Tobacco: Never Assessed Sex and Gender Information Value Date Recorded Sex Assigned at Not on file Gender Identity Not on file Sexual Orientation Not on file documented as of this encounter Plan of Treatment Not on file documented as of this encounter Visit Diagnoses Not on filedocumented in this encounter Care Teams Senior Hr Generalist Relationship Specialty Start Date End Date Michael Mims MD [address] [place] [address] PCP - General 10/11/11 03/21/14 documented as of this encounter
--- OUTSIDE RECORDS SUMMARY | 2024-05-31 13:26 | XMS_ITS | Encounter Summary ---
[place] [address] Care Team Providers Care Avid Editor Name Role Phone Keo Orozco APRN Primary Care Provider Encounter Details Date Type Department Care Team ([facility] st Contact Info) Description 12/21/2010 9:00 AM EDT Follow-Up [facility] [address] [place] [phone] Ramirez Ahuja MD [address] [place], [place] [address] Social History Tobacco Use Types Packs/Day Years Used Date Smoking Tobacco: Never Assessed Sex and Gender Information Value Date Recorded Sex Assigned at Not on file Gender Identity Not on file Sexual Orientation Not on file documented as of this encounter Plan of Treatment Not on file documented as of this encounter Visit Diagnoses Not on filedocumented in this encounter Care Teams Avid Editor Relationship Specialty Start Date End Date Keo Orozco APRN [address] [place] [address] PCP - General 09/30/10 09/29/11 documented as of this encounter
--- OUTSIDE RECORDS SUMMARY | 2024-05-31 13:26 | XMS_ITS | Encounter Summary ---
Author Organization [facility] Address [facility] [place] [address] Care Team Providers Care Secretary Office Clerk Name Role Phone Dom Kennedy MD Primary Care Provider Reason for Visit * Consultation (Routine) - Closed Specialty Diagnoses / Procedures Referred By Contsue t Referred To Contact Endocrinology Diagnoses Type 2 diabetes mellitus without complications Essential (primary) hypertension Hyperlipidemia, unspecified Dom Kennedy MD [address] [place] [address] [place] [address] Td Blanco MD [facility] [place] [address] Referral ID Status Reason Start Date Expiration Date Visits Re quested Visits Authorized [id number] Closed 12/25/2020 12/25/2021 1 1 Encounter Details Date Type Department Care Team (Latest Contact Info) Description 01/29/2021 10:00 AM EDT TH Visit (TeleHealth) [place] [address] Td Blanco MD [facility] [place] [place] [address] Type 2 diabetes mellitus with hyperglycemia, with [...] treatment Last Eye Appointment: Aug 2020, 1x/year [facility]. Early signs of cataracts. 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
--- OUTSIDE RECORDS SUMMARY | 2024-05-31 13:26 | XMS_ITS | Encounter Summary ---
Author Organization [facility] [place] [address] Care Team Providers Care Staff Nuclear Medicine Technologist Name Role Phone Ralph Ellison MD Primary Care Provider [phone] Reason for Referral * Diagnostic Test (Routine) - Closed Specialty Diagnoses / Procedures Referred By Contac t Referred To Contact Diagnoses Chest discomfort SOB (shortness of breath) Atypical chest pain Procedures Echocardiogram Stress (Treadmill) Adolfo Antonio MD [facility] [place] [address] [facility] [place] [address] Referral ID Status Reason Start Date Expiration Date V isits Requested Visits Authorized [id number] Closed Specialty Service Requested 09/26/2015 11/25/2015 1 1 Reason for Visit * Reason Comments Chest Pain * Consultation (SHERMAN) - Closed Specialty Diagnoses / Procedures Referred By Contac t Referred To Contact Cardiology Diagnoses positive cardiac stress test risk factors diabetes, hypertension and hyperlipidemia Ralph Ellison MD [facility] [address] [place] [address] [facility] [address] [place] [address] Referral ID Status Reason Start Date Expiration Date V isits Requested Visits Authorized [id number] Closed Consult, Test & Treat Connection Center 09/05/2015 09/04/2016 1 1 Encounter Details Date Type Department Care Team (Late st Contact Info) Description 09/11/2015 11:00 AM EST Office Visit Cardiology at [address] [place] [address] Adolfo Antonio MD [facility] [place] [address] Chest discomfort; SOB (shortness of breath); Atypical [...] encounter Patient Instructions * Patient Instructions* Adolfo Antonio MD - 09/11/2015 11:57 AM EST 1. Begin daily aspirin, 81 mg 2. Labs today (cardiac enzymes) 3. Stress echocardiogram to be scheduled 4. Follow-up at time of stress test documented in this encounter Progress Notes * Adolfo Antonio MD - 09/11/2015 11:50 AM EST Images from the original note were not included. [facility] [place] [place] [address] CARDIOLOGY OUTPATIENT CONSULTATION [facility] Office Jefry Guadarrama [id number] 09/11/2015 REFERRING PROVIDER: Ralph Ellison CHIEF COMPLAINT: [...] he had a nuclear stress test at [facility] which was reportedly negative. His symptoms [...] He is and lives with his in [place], [place]. 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 He has never smoked. He drinks a [...] via any of the following mechanisms: Email: [email or web address]? documented in this encounter Miscellaneous Notes * Addendum Note - Arlyn Kothari - 09/11/2015 12:24 PM ESTAddended by: ARLYN KOTHARI on: 09/11/2015 12:24 PM Modules accepted: Orders [...] JOSEPH ? (Age): 1960(54y) Med Rec#: ? [id number] ?Sex: ?M ? [place] [facility] [place]Ht / Wt: ??177(cm)/95.01(k Pt. Loc: ?Echo Lab ?BSA: ?2.12 Study Date: ?? 10/30/2015 ?Pt. Type: Tape: ? Referring: ADOLFO ANTONIO Referring: Adolfo Antonio Reading: Nirmal Arroyo ([id number]) Cissp: Grady Orosco Horticultural Technical Officer: Milagros Duke Interpreting Fellow: Gregor Schwarz ??([id number]) Interpreting Fellow: Madan Hu ([id number]) Interpreting Fellow: Albino Rice ([id number]) Diagnosis: *ICD-10-PCS Shortness of breath (R06.02) *ICD-10-PCS Other chest pain (R07.89) CPT Codes: *Stress Echo (81364) *Color Doppler (60926) *Doppler LTD (14670) *ECG Interpretation (91085) *Definity (30434HX) Stage ? BP ?HR ? Rest ?166/80 [...] E-wave Vmax ?0.5 ?m/sec ? MV deceleration [id number] ?msec ? MV A-wave Vmax ?0.6 ?m/sec [...] ?Normal ?Normal ? Mid-Inferoseptal ?Normal ?Normal ? [place]-Septal ? Normal ?Normal ? [place]-Anterior ? Normal ?Normal ? [place]-Lateral ?Normal ?Normal ? [place]-Inferior ? Normal ?Normal ? [place]-Tip ?Normal ?Normal ? This report has been electronically signed by: Nirmal Arroyo M.D. ? 10/30/2015 12:53:17 Images reviewed and interpretation verified [facility] Cardiac Ultrasound Laboratory Procedure Note Nirmal Arroyo MD - 10/30/2015 Procedure: Stress Echocardiogram Patient: CHIARA TORRES(Age): 1960(54y) Med Rec#: [id number] Sex: M [place] [facility] Ht / Wt: 177(cm)/95.01(k Pt. Loc: Echo Lab BSA: 2.12 Study Date: 10/30/2015 Pt. Type: Tape: Referring: ADOLFO ANTONIO Referring: Adolfo Antonio Reading: Nirmal Arroyo ([id number]) Cissp: Grady Orosco Horticultural Technical Officer: Milagros Duke Interpreting Fellow: Gregor Schwarz ([id number]) Interpreting Fellow: Madan Hu ([id number]) Interpreting Fellow: Albino Rice ([id number]) Diagnosis: *ICD-10-PCS Shortness of breath (R06.02) *ICD-10-PCS Other chest pain (R07.89) CPT Codes: *Stress Echo (38666) *Color Doppler (58244) *Doppler LTD (05184) *ECG Interpretation (89904) *Definity (60293RJ) Stage BP HR Rest 166/80 86 Peak [...] MV E-wave Vmax 0.5 m/sec MV deceleration ihsw701 msec MV A-wave Vmax 0.6 m/sec MV [...] Normal Mid-Inferior Normal Normal Mid-Inferoseptal Normal Normal [place]-Septal Normal Normal [place]-Anterior Normal Normal [place]-Lateral Normal Normal [place]-Inferior Normal Normal [place]-Tip Normal Normal This report has been electronically signed by: Nirmal Arroyo M.D. 10/30/2015 12:53:17 Images reviewed and interpretation verified [facility] Cardiac Ultrasound Laboratory Adolfo Antonio MD ECHO ORDERABLES * Troponin T (09/11/2015 12:30 PM EST) Troponin-T <0.03 <=0.03 ng/mL [facility] Comment: 0.03 ng/mL: Represents the 99th percentile upper reference limit for normals. >0.03 ng/mL: Elevated cardiac troponin T level indicative of myocardial damage. Diagnosis of acute, evolving or recent [place] requires a typical rise and gradual fall [...] consensus document of the Joint Society of Cardiology/[place] College of Cardiology Committee for the redefinition of myocardial infarction. ??Journal of the [place] College of Cardiology 2000; 36: 959-969] Blood specimen (specimen) 09/11/2015 12:30 PM EST 09/11/2015 12:45 PM EST Narrative Resulting Agency Comment Spec In Lab Adolfo Antonio MD CHEMISTRY ORDERABLES Performing Organization Address City/[facility] Co de Phone Number MIRNA ROSAS * EKG 12 Lead (09/11/2015 11:00 AM EST) Ventricular rate 72 BPM MUSE SYSTEM Atrial Rate 72 BPM MUSE SYSTEM P-R Interval 180 ms MUSE SYSTEM QRS Duration 94 ms MUSE SYSTEM Q-T Interval 358 ms MUSE SYSTEM QTC Calculated (Bezet) 392 ms MUSE SYSTEM Calculated P [place] 73 degrees MUSE SYSTEM Calculated R [place] 74 degrees MUSE SYSTEM Calculated T [place] 63 degrees MUSE SYSTEM INTERPRETATION Normal sinus rhythm Normal ECG No previous ECGs available Confirmed by MD Melo, Adolfo ([id number]) on 09/11/2015 1:38:08 PM MUSE SYSTEM 09/11/2015 11:0 0 AM EST 09/11/2015 1:38 PM EST Adolfo Antonio MD ECG ORDERABLES Performing Organization Address [facility] Co de Phone Number MUSE SYSTEM documented in this encounter Visit Diagnoses Diagnosis Chest discomfort Other chest pain SOB (shortness of breath) Shortness of breath Atypical chest pain Other chest pain Chest discomfort Other chest pain SOB (shortness of breath) Shortness of breath Atypical chest pain Other chest pain documented in this encounter Care Teams Staff Nuclear Medicine Technologist Relationship Specialty Start Date End Date Ralph Ellison MD [facility] [address] [place] [address] PCP - General General Internal Medicine 09/05/1512/13 documented as of this encounter
--- OUTSIDE RECORDS SUMMARY | 2024-05-31 13:26 | XMS_ITS | Encounter Summary ---
Author Organization [facility] [place] [address] Care Team Providers Care Supervisor Silvering Department Name Role Phone Keo Orozco LINE STAKER Primary Care Provider [phone] Encounter Details Date Type Department Care Team (Late st Contact Info) Description 06/21/2011 11:15 AM EST Laboratory Appointment [address] [address] Social History Tobacco Use Types [...] on filedocumented in this encounter Care Teams Supervisor Silvering Department Relationship Specialty Start Date End Date Keo Orozco APRN [address] [place] [address] PCP - General 09/30/10 09/29/11 documented as of this encounter
--- OUTSIDE RECORDS SUMMARY | 2024-05-31 13:26 | XMS_ITS | Encounter Summary ---
Author Organization [facility] [place] [address] Care Team Providers Care Petrologist Name Role Phone Dom Kennedy MD Primary Care Provider [phone] Encounter Details Date Type Department Care Team (Late st Contact Info) Description 09/02/2020 Telephone Urology at [facility] [place] [phone] Ana Maria Medina LNA Social History Tobacco [...] on filedocumented in this encounter Care Teams Petrologist Relationship Specialty Start Date End Date Dom Kennedy MD PCP - General 12/28/16 documented as of this encounter
--- OUTSIDE RECORDS SUMMARY | 2024-05-31 13:26 | XMS_ITS | Encounter Summary ---
[facility] Address [facility] [place] [address] Care Team Providers Care Deputy Sheriff Custody Name Role Phone Dom Kennedy MD Primary Care Provider [phone] Encounter Details Date Type Department Care Team (Late st Contact Info) Description 05/01/2020 Ancillary Procedure Radiology Library [place] [facility] [place] [phone] Estrella Hickman MD [facility] [place] [address] Social History Tobacco Use Types Packs/Day Years [...] & Pelvis (05/01/2020 12:00 AM EDT) Narrative [facility] - 05/14/2020 9:49 PM EDT This exam is auto-finalizing. It's purpose is for storage only. Estrella Hickman MD IMG FILM LIBRAR Y ORDERABLES [place], [place] documented in this encounter Visit Diagnoses Not on filedocumented in this encounter Care Teams Deputy Sheriff Custody Relationship Specialty Start Date End Date Dom Kennedy MD PCP - General 12/28/16 documented as of this encounter
--- OUTSIDE RECORDS SUMMARY | 2024-05-31 13:26 | XMS_ITS | Encounter Summary ---
[place] [address] Care Team Providers Care Senior Bioinformatics Scientist Name Role Phone Michael Mims MD Primary Care Provider [phone] Encounter Details Date Type Department Care Team ([facility] st Contact Info) Description 03/22/2014 1:30 PM EDT Follow-Up [address] [address] Janie Saravia PA [address] [place] [address] Social History Tobacco Use Types Packs/Day Years Used Date Smoking Tobacco: Never Assessed Sex and Gender Information Value Date Recorded Sex Assigned at Not on file Gender Identity Not on file Sexual Orientation Not on file documented as of this encounter Plan of Treatment Not on file documented as of this encounter Visit Diagnoses Not on filedocumented in this encounter Care Teams Senior Bioinformatics Scientist Relationship Specialty Start Date End Date Michael Mims MD [address] [place] [address] PCP - General 03/22/14 05/28/14 documented as of this encounter
--- OUTSIDE RECORDS SUMMARY | 2024-05-31 13:26 | XMS_ITS | Encounter Summary ---
[place] [address] Care Team Providers Care Stereo Equipment Salesperson Name Role Phone Dom Kennedy MD Primary Care Provider Encounter Details Date Type Department Care Team (Late st Contact Info) Description 08/21/2010 Abstract [facility] Information Services [address] [place] [phone] Provider, His [place] MD Social History Tobacco [...] on filedocumented in this encounter Care Teams Stereo Equipment Salesperson Relationship Specialty Start Date End Date Dom Kennedy MD PCP - General 12/28/16 documented as of this encounter
--- OUTSIDE RECORDS SUMMARY | 2024-05-31 13:26 | XMS_ITS | Encounter Summary ---
[place] [address] Care Team Providers Care Safety Security Officer Name Role Phone Keo Orozco APRN Primary Care Provider Encounter Details Date Type Department Care Team ([facility] st Contact Info) Description 06/21/2011 2:00 PM EST Follow-Up [facility] [address] [place] [address] Ramirez Ahuja MD [address] [place] [address] Social History Tobacco Use Types [...] on filedocumented in this encounter Care Teams Safety Security Officer Relationship Specialty Start Date End Date Keo Orozco APRN [address] [place] [address] PCP - General 09/30/10 09/29/11 documented as of this encounter
--- OUTSIDE RECORDS SUMMARY | 2024-05-31 13:26 | XMS_ITS | Encounter Summary ---
Author Organization [facility] [place] [address] Care Team Providers Care Professor In Family Studies Name Role Phone Michael Mims MD Primary Care Provider [phone] Encounter Details Date Type Department Care Team (Late st Contact Info) Description 12/10/2011 9:00 AM EDT Laboratory Appointment [address] [phone] Social History Tobacco Use Types Packs/Day Years Used Date Smoking Tobacco: Never Assessed Sex and Gender Information Value Date Recorded Sex Assigned at Not on file Gender Identity Not on file Sexual Orientation Not on file documented as of this encounter Plan of Treatment Not on file documented as of this encounter Visit Diagnoses Not on filedocumented in this encounter Care Teams Professor In Family Studies Relationship Specialty Start Date End Date Michael Mims MD [address] [place] [address] PCP - General 10/11/11 03/21/14 documented as of this encounter
--- OUTSIDE RECORDS SUMMARY | 2024-05-31 13:26 | XMS_ITS | Encounter Summary ---
[place] [address] Care Team Providers Care Skid Man Name Role Phone Dom Kennedy MD Primary Care Provider [phone] Encounter Details Date Type Department Care Team (Late st Contact Info) Description 03/22/2014 Abstract [facility] Information Services [address] [place] [phone] Provider, His [place] Social History Tobacco [...] oz) 03/22/2014 1:00 PM EDT Sourced from [place] Conversion Height 175.3 cm (5' 9) 03/22/2014 1:00 PM EDT Sourced from [place] Conversion Body Mass Index 30.78 03/22/2014 1:00 PM EDT documented in this encounter Plan of Treatment Not on file documented as of this encounter Visit Diagnoses Not on filedocumented in this encounter Care Teams Skid Man Relationship Specialty Start Date End Date Dom Kennedy MD PCP - General 12/28/16 documented as of this encounter
--- OUTSIDE RECORDS SUMMARY | 2024-05-31 13:26 | XMS_ITS | Encounter Summary ---
Author [place] [address] Care Team Providers Care Marketing Rep Name Role Phone Dom Kennedy MD Primary Care Provider [phone] Encounter Details Date Type Department Care Team (Late st Contact Info) Description 01/04/2012 Abstract [facility] Information Services [address] [place] [phone] Provider, His [place] MD Social History Tobacco [...] filedocumented in this encounter Care Teams Marketing Rep Relationship Specialty Start Date End Date Dom Kennedy MD PCP - General 12/28/16 documented as of this encounter
--- OUTSIDE RECORDS SUMMARY | 2024-05-31 13:26 | XMS_ITS | Encounter Summary ---
[place] [address] Care Team Providers Care Fisher Gill Net Name Role Phone Dom Kennedy MD Primary Care Provider [phone] Encounter Details Date Type Department Care Team (Late st Contact Info) Description 12/10/2011 Abstract [facility] Health Information Services [address] [place] [phone] Provider, His [place] MD Social History Tobacco [...] filedocumented in this encounter Care Teams Fisher Gill Net Relationship Specialty Start Date End Date Dom Kennedy MD PCP - General 12/28/16 documented as of this encounter
--- OUTSIDE RECORDS SUMMARY | 2024-05-31 13:26 | XMS_ITS | Encounter Summary ---
[place] [address] Care Team Providers Care Overlock Sleeve Setter Name Role Phone Ralph Ellison MD Primary Care Provider [phone] Encounter Details Date Type Department Care Team (Late st Contact Info) Description 12/05/2015 10:00 AM EDT Office Visit General Surgery [place] [address] [place] [phone] Keo Cardoso MD [address] [place] [address] Social History Tobacco Use Types Packs/Day Years [...] on filedocumented in this encounter Care Teams Overlock Sleeve Setter Relationship Specialty Start Date End Date Ralph Ellison MD [facility] [address] [facility] [place] [address] PCP - General General Internal Medicine 09/05/1512/13 documented as of this encounter
--- OUTSIDE RECORDS SUMMARY | 2024-05-31 13:26 | XMS_ITS | Encounter Summary ---
[place] [address] Care Team Providers Care Vineyard Worker Name Role Phone Keo Orozco APRN Primary Care Provider Encounter Details Date Type Department Care Team ([facility] st Contact Info) Description 02/11/2011 9:15 AM EDT Follow-Up [facility] [address] [place] [address] Ramirez Ahuja MD [address] [place] [address] Social History Tobacco Use Types [...] on filedocumented in this encounter Care Teams Vineyard Worker Relationship Specialty Start Date End Date Keo Orozco APRN [address] [place] [address] PCP - General 09/30/10 09/29/11 documented as of this encounter
--- OUTSIDE RECORDS SUMMARY | 2024-05-31 13:26 | XMS_ITS | Encounter Summary ---
Author Organization [facility] [place] [address] Care Team Providers Care Chicken Hanger Name Role Phone Dom Kennedy MD Primary Care Provider [phone] Reason for Visit * Reason Onset Date Comments Prior Authorization 01/30/2021 Encounter Details Date Type Department Care Team (Late st Contact Info) Description 01/30/2021 [place] [phone] Faiza Armijo Prior Authorization Social History Tobacco [...] request: Type II DM Health plan: [facility] ([facility]) Authorizing sales account representative name: Nieves Sent to health plan on: 02/10/21 Health plan decision: Approved Quantity approved: Authorization number: [id number] Start date: 01/11/21 End date: 02/10/22 documented in this encounter Plan of Treatment Not on file documented as of this encounter Visit Diagnoses Not on filedocumented in this encounter Care Teams Chicken Hanger Relationship Specialty Start Date End Date Dom Kennedy MD PCP - General 12/28/16 documented as of this encounter
--- OUTSIDE RECORDS SUMMARY | 2024-05-31 13:26 | XMS_ITS | Encounter Summary ---
[place] [address] Care Team Providers Care Chucking Machine Operator Name Role Phone Keo Orozco APRN Primary Care Provider [phone] Encounter Details Date Type Department Care Team ([facility] st Contact Info) Description 02/26/2011 10:45 AM EDT Follow-Up [facility] [address] [place] [address] Ramirez Ahuja MD [address] [place] [address] Social History Tobacco Use Types [...] on filedocumented in this encounter Care Teams Chucking Machine Operator Relationship Specialty Start Date End Date Keo Orozco APRN [address] [place] [address] PCP - General 09/30/10 09/29/11 documented as of this encounter
--- OUTSIDE RECORDS SUMMARY | 2024-05-31 13:26 | XMS_ITS | Encounter Summary ---
Author Organization [facility] [place] [address] Care Team Providers Care Material Distributor Name Role Phone Dom Kennedy MD Primary Care Provider [phone] Reason for Visit * Reason Comments Medication Refill Encounter Details Date Type Department Care Team (Late st Contact Info) Description 12/20/2021 Refill [place] [address] Td Blanco MD [facility] [place] [address] Type 2 diabetes mellitus with hyperglycemia, with [...] insulin documented in this encounter Care Teams Material Distributor Relationship Specialty Start Date End Date Dom Kennedy MD PCP - General 12/28/16 documented as of this encounter
--- OUTSIDE RECORDS SUMMARY | 2024-05-31 13:26 | XMS_ITS | Encounter Summary ---
Author Organization [facility] [place] [address] Care Team Providers Care Pollution Control Chemist Name Role Phone Keo Orozco BILLIARD TABLE MECHANIC Primary Care Provider [phone] Encounter Details Date Type Department Care Team (Late st Contact Info) Description 12/09/2010 10:00 AM EDT Procedure visit [address] [address] Social History Tobacco Use Types [...] on filedocumented in this encounter Care Teams Pollution Control Chemist Relationship Specialty Start Date End Date Keo Orozco APRN [address] [place] [address] PCP - General 09/30/10 09/29/11 documented as of this encounter
--- OUTSIDE RECORDS SUMMARY | 2024-05-31 13:26 | XMS_ITS | Encounter Summary ---
[place] [address] Care Team Providers Care Third Mate Name Role Phone Michael Mims MD Primary Care Provider [phone] Encounter Details Date Type Department Care Team ([facility] st Contact Info) Description 12/15/2011 8:00 AM EDT Follow-Up [address] [phone] Janie Saravia PA [address] [place] [address] Social History Tobacco Use Types Packs/Day Years Used Date Smoking Tobacco: Never Assessed Sex and Gender Information Value Date Recorded Sex Assigned at Not on file Gender Identity Not on file Sexual Orientation Not on file documented as of this encounter Plan of Treatment Not on file documented as of this encounter Visit Diagnoses Not on filedocumented in this encounter Care Teams Third Mate Relationship Specialty Start Date End Date Michael Mims MD [address] [place] [address] PCP - General 10/11/11 03/21/14 documented as of this encounter
--- OUTSIDE RECORDS SUMMARY | 2024-05-31 13:26 | XMS_ITS | Encounter Summary ---
Author Organization [facility] [place] [address] Care Team Providers Care Absence Management Consultant Name Role Phone Dom Kennedy MD Primary Care Provider [phone] Encounter Details Date Type Department Care Team (Late st Contact Info) Description 08/21/2010 Abstract [facility] Information Services [address] [place] [phone] Provider, His [place] MD Social History Tobacco [...] DM Eye Exam 08/17/2011 5:11:20 PM; See RightSignature system for full report(Externa l Lab) [place] [facility] RESULT CONVERSION Comment:Sourced from Mckenna Gottlieb [...] on filedocumented in this encounter Care Teams Absence Management Consultant Relationship Specialty Start Date End Date Dom Kennedy MD PCP - General 12/28/16 documented as of this encounter
--- OUTSIDE RECORDS SUMMARY | 2024-05-31 13:26 | XMS_ITS | Encounter Summary ---
[place] [address] Care Team Providers Care Oracle Database Administrator Name Role Phone Michael Mims MD Primary Care Provider [phone] Encounter Details Date Type Department Care Team ([facility] st Contact Info) Description 02/23/2012 11:00 AM EDT Office Visit [facility] [address] [place] [phone] David Holliday, PhD [address] [place] [address] Social History Tobacco Use Types Packs/Day Years Used Date Smoking Tobacco: Never Assessed Sex and Gender Information Value Date Recorded Sex Assigned at Not on file Gender Identity Not on file Sexual Orientation Not on file documented as of this encounter Plan of Treatment Not on file documented as of this encounter Visit Diagnoses Not on filedocumented in this encounter Care Teams Oracle Database Administrator Relationship Specialty Start Date End Date Michael Mims MD [address] [place] [address] PCP - General 10/11/11 03/21/14 documented as of this encounter
--- OUTSIDE RECORDS SUMMARY | 2024-05-31 13:26 | XMS_ITS | Encounter Summary ---
Author Organization [facility] [place] [address] Care Team Providers Care Greens Tier Name Role Phone Ralph Ellison MD Primary Care Provider [phone] Encounter Details Date Type Department Care Team (Late st Contact Info) Description 10/30/2015 10:30 AM EDT Office Visit Cardiology at [address] [place] [address] Quentin Alejo MD [facility] [place] [address] Atypical chest pain Social History Tobacco Use [...] from the original note were not included. [facility] ANTHONY Bui [address] CARDIOLOGY OUTPATIENT FOLLOW-UP NOTE Jefry Guadarrama [id number] PCP: RALPH ELLISON MD 10/30/2015 PRIMARY CARE PROVIDER: RALPH ELLISON MD PROBLEM LIST: Patient Active Problem List Diagnosis ??? Atypical chest pain ?? Nuclear stress test [facility] in 2014 reportedly negative ?? Treadmill stress test [facility] August 21, [address] [...] He had a nuclear stress test at [facility] a year ago which was negative. More recently he had a treadmill stress test at [facility] in this elicited some discomfort [...] pain documented in this encounter Care Teams Greens Tier Relationship Specialty Start Date End Date Ralph Ellison MD [facility] [address] [place] [address] PCP - General General Internal Medicine 09/05/1512/13 documented as of this encounter
--- OUTSIDE RECORDS SUMMARY | 2024-05-31 13:26 | XMS_ITS | Encounter Summary ---
Author Organization [facility] [place] [address] Care Team Providers Care Senior Investment Analyst Name Role Phone Aftab Coles MD, Dom Conrad Primary Care Provider [phone] Encounter Details Date Type Department Care Team (Late st Contact Info) Description 08/21/2010 4:00 AM EST Procedure visit [address] [address] Social History Tobacco Use Types [...] filedocumented in this encounter Care Teams Senior Investment Analyst Relationship Specialty Start Date End Date Dom Ugalde Jr., MD PCP - General 08/11/10 09/03/10 documented as of this encounter
--- OUTSIDE RECORDS SUMMARY | 2024-05-31 13:26 | XMS_ITS | Encounter Summary ---
[place] [address] Care Team Providers Care Corporate Operations Compliance Manager Name Role Phone Dom Kennedy MD Primary Care Provider [phone] Encounter Details Date Type Department Care Team (Late st Contact Info) Description 12/05/2015 Abstract [facility] Information Services [address] [place] [phone] Provider, His MD [place] Social History Tobacco [...] 72 12/05/2015 10:00 AM EDT Sourced from [place] Conversion Temperature - - Respiratory Rate - [...] filedocumented in this encounter Care Teams Corporate Operations Compliance Manager Relationship Specialty Start Date End Date Dmo Kennedy MD PCP - General 12/28/16 documented as of this encounter
--- OUTSIDE RECORDS SUMMARY | 2024-05-31 13:26 | XMS_ITS | Encounter Summary ---
[place] [address] Care Team Providers Care Radio Operator Name Role Phone Michael Mims MD Primary Care Provider [phone] Encounter Details Date Type Department Care Team ([facility] st Contact Info) Description 12/15/2011 9:00 AM EDT Follow-Up [facility] [address] [place] [phone] Ramirez Ahuja MD [address] [place] [address] Social History Tobacco Use Types Packs/Day Years Used Date Smoking Tobacco: Never Assessed Sex and Gender Information Value Date Recorded Sex Assigned at Not on file Gender Identity Not on file Sexual Orientation Not on file documented as of this encounter Plan of Treatment Not on file documented as of this encounter Visit Diagnoses Not on filedocumented in this encounter Care Teams Radio Operator Relationship Specialty Start Date End Date Michael Mims MD [address] [place] [address] PCP - General 10/11/11 03/21/14 documented as of this encounter
--- OUTSIDE RECORDS SUMMARY | 2024-05-31 13:26 | XMS_ITS | Encounter Summary ---
[place] [address] Care Team Providers Care Passenger Rate Clerk Name Role Phone Michael Mims MD Primary Care Provider [phone] Encounter Details Date Type Department Care Team ([facility] st Contact Info) Description 01/12/2012 11:00 AM EDT Office Visit [facility] [address] [place] [phone] David Holliday, PhD [address] [place] [address] Social History Tobacco Use Types Packs/Day Years Used Date Smoking Tobacco: Never Assessed Sex and Gender Information Value Date Recorded Sex Assigned at Not on file Gender Identity Not on file Sexual Orientation Not on file documented as of this encounter Plan of Treatment Not on file documented as of this encounter Visit Diagnoses Not on filedocumented in this encounter Care Teams Passenger Rate Clerk Relationship Specialty Start Date End Date Michael Mims MD [address] [place] [address] PCP - General 10/11/11 03/21/14 documented as of this encounter
--- OUTSIDE RECORDS SUMMARY | 2024-05-31 13:26 | XMS_ITS | Encounter Summary ---
[place] [address] Care Team Providers Care Decorative Cutting Machine Tender Name Role Phone Keo Orozco APRN Primary Care Provider Encounter Details Date Type Department Care Team (Late st Contact Info) Description 03/08/2011 3:00 PM EDT Office Visit [facility] [address] [place] [phone] Lawson Mixon III, MD [address] [place] [address] Social History Tobacco Use Types Packs/Day Years Used Date Smoking Tobacco: Never Assessed Sex and Gender Information Value Date Recorded Sex Assigned at Not on file Gender Identity Not on file Sexual Orientation Not on file documented as of this encounter Plan of Treatment Not on file documented as of this encounter Visit Diagnoses Not on filedocumented in this encounter Care Teams Decorative Cutting Machine Tender Relationship Specialty Start Date End Date Keo Orozco APRN [address] [place] [address] PCP - General 09/30/10 09/29/11 documented as of this encounter
--- OUTSIDE RECORDS SUMMARY | 2024-05-31 13:26 | XMS_ITS | Encounter Summary ---
Author Organization [facility] [place] [address] Care Team Providers Care Yarn Tester Name Role Phone Michael Mims MD Primary Care Provider [phone] Encounter Details Date Type Department Care Team (Late st Contact Info) Description 01/04/2012 12:00 PM EDT Laboratory Appointment [address] [phone] Social History Tobacco Use Types Packs/Day Years Used Date Smoking Tobacco: Never Assessed Sex and Gender Information Value Date Recorded Sex Assigned at Not on file Gender Identity Not on file Sexual Orientation Not on file documented as of this encounter Plan of Treatment Not on file documented as of this encounter Visit Diagnoses Not on filedocumented in this encounter Care Teams Yarn Tester Relationship Specialty Start Date End Date Michael Mims MD [address] [place] [address] PCP - General 10/11/11 03/21/14 documented as of this encounter
--- OUTSIDE RECORDS SUMMARY | 2024-05-31 13:26 | XMS_ITS | Encounter Summary ---
[place] [address] Care Team Providers Care Abalone Fisherman Name Role Phone Keo Orozco NIBBLER OPERATOR Primary Care Provider Encounter Details Date Type Department Care Team ([facility] st Contact Info) Description 12/03/2010 9:00 AM EDT Office Visit [facility] [address] [place] [address] Lorene Luna, RD 590 [facility] [place] [address] Social History Tobacco Use Types Packs/Day Years Used Date Smoking Tobacco: Never Assessed Sex and Gender Information Value Date Recorded Sex Assigned at Not on file Gender Identity Not on file Sexual Orientation Not on file documented as of this encounter Plan of Treatment Not on file documented as of this encounter Visit Diagnoses Not on filedocumented in this encounter Care Teams Abalone Fisherman Relationship Specialty Start Date End Date Keo Orozco APRN [address] [place] [address] PCP - General 09/30/10 09/29/11 documented as of this encounter
--- OUTSIDE RECORDS SUMMARY | 2024-05-31 13:26 | XMS_ITS | Encounter Summary ---
Author Organization [place] [address] Care Team Providers Care Copra Sampler Name Role Phone Keo Orozco PARTICLE BOARD SUPERVISOR Primary Care Provider Encounter Details Date Type Department Care Team (Late st Contact Info) Description 12/03/2010 6:15 AM EDT Office Visit [address] [address] Social History Tobacco Use Types [...] on filedocumented in this encounter Care Teams Copra Sampler Relationship Specialty Start Date End Date Keo Orozco APRN [address] [place] [address] PCP - General 09/30/10 09/29/11 documented as of this encounter
--- OUTSIDE RECORDS SUMMARY | 2024-05-31 13:26 | XMS_ITS | Encounter Summary ---
[place] [address] Care Team Providers Care Weighing Station Operator Name Role Phone Michael Mims MD Primary Care Provider [phone] Encounter Details Date Type Department Care Team ([facility] st Contact Info) Description 10/14/2011 2:00 PM EST Follow-Up [facility] [address] [place] [address] Ramirez Ahuja MD [address] [place] [address] Social History Tobacco Use Types Packs/Day Years Used Date Smoking Tobacco: Never Assessed Sex and Gender Information Value Date Recorded Sex Assigned at Not on file Gender Identity Not on file Sexual Orientation Not on file documented as of this encounter Plan of Treatment Not on file documented as of this encounter Visit Diagnoses Not on filedocumented in this encounter Care Teams Weighing Station Operator Relationship Specialty Start Date End Date Michael Mims MD [address] [place] [address] PCP - General 10/11/11 03/21/14 documented as of this encounter
--- OUTSIDE RECORDS SUMMARY | 2024-05-31 13:26 | XMS_ITS | Encounter Summary ---
[place] [address] Care Team Providers Care Bar Host Name Role Phone Keo Orozco APRN Primary Care Provider [phone] Encounter Details Date Type Department Care Team ([facility] st Contact Info) Description 02/01/2011 11:30 AM EDT Follow-Up [facility] [address] [place] [address] Ramirez Ahuja MD [address] [place], [place] [id number] Social History Tobacco Use Types Packs/Day Years Used Date Smoking Tobacco: Never Assessed Sex and Gender Information Value Date Recorded Sex Assigned at Not on file Gender Identity Not on file Sexual Orientation Not on file documented as of this encounter Plan of Treatment Not on file documented as of this encounter Visit Diagnoses Not on filedocumented in this encounter Care Teams Bar Host Relationship Specialty Start Date End Date Keo Orozco APRN [address] [place] [address] PCP - General 09/30/10 09/29/11 documented as of this encounter
--- OUTSIDE RECORDS SUMMARY | 2024-05-31 13:26 | XMS_ITS | Encounter Summary ---
Author Organization [facility] [place] [address] Care Team Providers Care Salvage Winder And Inspector Name Role Phone Dom Kennedy MD Primary Care Provider Encounter Details Date Type Department Care Team (Late st Contact Info) Description 06/03/2020 Telephone Urology at [facility] [place] [phone] Estrella Hickman MD [facility] UROLOGRashad [place] [id number] Social History Tobacco Use Types Packs/Day Years [...] on filedocumented in this encounter Care Teams Salvage Winder And Inspector Relationship Specialty Start Date End Date Dom Kennedy MD PCP - General 12/28/16 documented as of this encounter
--- OUTSIDE RECORDS SUMMARY | 2024-05-31 13:26 | XMS_ITS | Encounter Summary ---
Author Organization [facility] Address [facility] [place] [address] Care Team Providers Care Dump Motor Operator Name Role Phone Ralph Ellison MD Primary Care Provider [phone] Reason for Referral * Diagnostic Test (Routine) - Closed Specialty Diagnoses / Procedures Referred By Contac t Referred To Contact Diagnoses Chest discomfort SOB (shortness of breath) Atypical chest pain Procedures Echocardiogram Stress (Treadmill) Adolfo Antonio MD [facility] [place] [address] [facility] [place] [address] Referral ID Status Reason Start Date Expiration Date V isits Requested Visits Authorized [id number] Closed Specialty Service Requested 09/26/2015 11/25/2015 1 1 Reason for Visit * Diagnostic Test (Routine) - Closed Specialty Diagnoses / Procedures Referred By Contac t Referred To Contact Diagnoses Chest discomfort SOB (shortness of breath) Atypical chest pain Procedures Echocardiogram Stress (Treadmill) Adolfo Antonio MD [facility] [place] [address] [facility] [place] [address] Referral ID Status Reason Start Date Expiration Date V isits Requested Visits Authorized [id number] Closed Specialty Service Requested 09/26/2015 11/25/2015 1 1 Encounter Details Date Type Department Care Team (Latest Contact Info) Description 10/30/2015 9:00 AM EDT - 10/30/2015 11:59 PM EDT Hospital Encounter Non-Invasive Cardiology Lab [facility] [place] [address] Adolfo Antonio MD [facility] [place] [address] Chest discomfort; SOB (shortness of breath); Atypical [...] JOSEPH ? (Age): 1960(54y) Med Rec#: ? [id number] ?Sex: ?M ? Site Loc: ? [facility] ?Ht / Wt: ??177(cm)/95.01(k Pt. Loc: ?Echo Lab ?BSA: ?2.12 Study Date: ?? 10/30/2015 ?Pt. Type: Tape: ? Referring: ADOLFO ANTONIO Referring: Adolfo Antonio Reading: Nirmal Arroyo ([id number]) Dictaphone Typist: Grady Orosco Stone Spreader Operator: Milagros Duke Interpreting Fellow: Gregor Schwarz ??([id number]) Interpreting Fellow: Madan Hu ([id number]) Interpreting Fellow: Albino Rice ([id number]) Diagnosis: *ICD-10-PCS Shortness of breath (R06.02) *ICD-10-PCS Other chest pain (R07.89) CPT Codes: *Stress Echo (74565) *Color Doppler (82851) *Doppler LTD (43069) *ECG Interpretation (21757) *Definity (02907XJ) Stage ? BP ?HR ? Rest ?166/80 [...] E-wave Vmax ?0.5 ?m/sec ? MV deceleration [id number] ?msec ? MV A-wave Vmax ?0.6 ?m/sec [...] ?Normal ?Normal ? Mid-Inferoseptal ?Normal ?Normal ? Starford-Septal ? Normal ?Normal ? Starford-Anterior ? Normal ?Normal ? Star[place]-Lateral ?Normal ?Normal ? [place]-Inferior ? Normal ?Normal ? [place]-Tip ?Normal ?Normal ? This report has been electronically signed by: Nirmal Arroyo M.D. ? 10/30/2015 12:53:17 Images reviewed and interpretation verified [facility] Cardiac Ultrasound [facility] Procedure Note Nirmal Arroyo MD - 10/30/2015 Procedure: Stress Echocardiogram Patient: CHIARA TORRES(Age): 1960(54y) Med Rec#: [id number] Sex: M Site Loc: [facility] Ht / Wt: 177(cm)/95.01(k Pt. Loc: Echo Lab BSA: 2.12 Study Date: 10/30/2015 Pt. Type: Tape: Referring: ADOLFO ANTONIO Referring: Adolfo Antonio Reading: Nirmal Arroyo ([id number]) Dictaphone Typist: Grady Orosco Stone Spreader Operator: Milagros Duke Interpreting Fellow: Gregor Schwarz ([id number]) Interpreting Fellow: Madan Hu ([id number]) Interpreting Fellow: Albino Rice ([id number]) Diagnosis: *ICD-10-PCS Shortness of breath (R06.02) *ICD-10-PCS Other chest pain (R07.89) CPT Codes: *Stress Echo (00322) *Color Doppler (38928) *Doppler LTD (47908) *ECG Interpretation (89605) *Definity (82655CI) Stage BP HR Rest 166/80 86 Peak [...] MV E-wave Vmax 0.5 m/sec MV deceleration [id number] msec MV A-wave Vmax 0.6 m/sec MV [...] Normal Mid-Inferior Normal Normal Mid-Inferoseptal Normal Normal Starford-Septal Normal Normal Starford-Anterior Normal Normal Starford-Lateral Normal Normal Starford-Inferior Normal Normal Star[place]-Tip Normal Normal This report has been electronically signed by: Nirmal Arroyo M.D. 10/30/2015 12:53:17 Images reviewed and interpretation verified [facility] Adolfo Antonio MD [...] mLs documented in this encounter Care Teams Dump Motor Operator Relationship Specialty Start Date End Date Ralph Ellison MD [address] [place] [address] PCP - General General Internal Medicine 09/05/1512/13 documented as of this encounter
--- OUTSIDE RECORDS SUMMARY | 2024-05-31 13:26 | XMS_ITS | Encounter Summary ---
[place] [address] Care Team Providers Care Clinic Business Manager Name Role Phone Dom Kennedy MD Primary Care Provider [phone] Encounter Details Date Type Department Care Team (Late st Contact Info) Description 01/04/2012 Abstract [facility] [address] [place] [phone] Provider, His [place] MD Social History Tobacco [...] on filedocumented in this encounter Care Teams Clinic Business Manager Relationship Specialty Start Date End Date Dom Kennedy MD PCP - General 12/28/16 documented as of this encounter
--- OUTSIDE RECORDS SUMMARY | 2024-05-31 13:26 | XMS_ITS | Encounter Summary ---
[place] [address] Care Team Providers Care Kettleman Name Role Phone Michael Mims MD Primary Care Provider [phone] Encounter Details Date Type Department Care Team ([facility] st Contact Info) Description 03/16/2012 11:00 AM EDT Office Visit [facility] [address] [place] [phone] David Holliday, PhD [address] [place] [address] Social History Tobacco Use Types Packs/Day Years Used Date Smoking Tobacco: Never Assessed Sex and Gender Information Value Date Recorded Sex Assigned at Not on file Gender Identity Not on file Sexual Orientation Not on file documented as of this encounter Plan of Treatment Not on file documented as of this encounter Visit Diagnoses Not on filedocumented in this encounter Care Teams Kettleman Relationship Specialty Start Date End Date Michael Mims MD [address] [place] [address] PCP - General 10/11/11 03/21/14 documented as of this encounter
--- OUTSIDE RECORDS SUMMARY | 2024-05-31 13:26 | XMS_ITS | Encounter Summary ---
[place] [address] Care Team Providers Care Clinical Molecular Geneticist Name Role Phone Michael Mims MD Primary Care Provider [phone] Encounter Details Date Type Department Care Team ([facility] st Contact Info) Description 01/19/2012 1:30 PM EDT Follow-Up [facility] [address] [place] [phone] Ramirez Ahuja MD [address] [place] [address] Social History Tobacco Use Types Packs/Day Years Used Date Smoking Tobacco: Never Assessed Sex and Gender Information Value Date Recorded Sex Assigned at Not on file Gender Identity Not on file Sexual Orientation Not on file documented as of this encounter Plan of Treatment Not on file documented as of this encounter Visit Diagnoses Not on filedocumented in this encounter Care Teams Clinical Molecular Geneticist Relationship Specialty Start Date End Date Michael Mims MD [address] [place] [address] PCP - General 10/11/11 03/21/14 documented as of this encounter
--- OUTSIDE RECORDS SUMMARY | 2024-05-31 13:26 | XMS_ITS | Encounter Summary ---
[place] [address] Care Team Providers Care Rim Roller Operator Name Role Phone Keo Orozco CROSS ROLLER Primary Care Provider Encounter Details Date Type Department Care Team ([facility] st Contact Info) Description 03/18/2011 10:30 AM EDT Office Visit [facility] [address] [place] [address] Lorene Luna, RD [address] [facility] [place] [address] Social History Tobacco Use Types Packs/Day Years Used Date Smoking Tobacco: Never Assessed Sex and Gender Information Value Date Recorded Sex Assigned at Not on file Gender Identity Not on file Sexual Orientation Not on file documented as of this encounter Plan of Treatment Not on file documented as of this encounter Visit Diagnoses Not on filedocumented in this encounter Care Teams Rim Roller Operator Relationship Specialty Start Date End Date Keo Orozco APRN [address] [place] [address] PCP - General 09/30/10 09/29/11 documented as of this encounter
--- OUTSIDE RECORDS SUMMARY | 2024-05-31 13:26 | XMS_ITS | Encounter Summary ---
[place] [address] Care Team Providers Care Frame Stripper Name Role Phone Aftab Coles MD, Dom Conrad Primary Care Provider [phone] Encounter Details Date Type Department Care Team (Late st Contact Info) Description 09/09/2010 4:15 PM EST Office Visit [address] [phone] Keo Orozco APRN [address] [place] [address] Social History Tobacco Use Types Packs/Day Years Used Date Smoking Tobacco: Never Assessed Sex and Gender Information Value Date Recorded Sex Assigned at Not on file Gender Identity Not on file Sexual Orientation Not on file documented as of this encounter Plan of Treatment Not on file documented as of this encounter Visit Diagnoses Not on filedocumented in this encounter Care Teams Frame Stripper Relationship Specialty Start Date End Date Dom Ugalde Jr., MD PCP - General 09/09/10 09/29/10 documented as of this encounter
--- OUTSIDE RECORDS SUMMARY | 2024-05-31 13:26 | XMS_ITS | Encounter Summary ---
[place] [address] Care Team Providers Care Gold Leaf Layer Name Role Phone Keo Orozco CHIEF RECORDIST Primary Care Provider [phone] Encounter Details Date Type Department Care Team (Late st Contact Info) Description 02/19/2011 9:45 AM EDT Office Visit [address] [phone] Keo Orozco APRN [address] [place] [address] Social History Tobacco Use Types Packs/Day Years Used Date Smoking Tobacco: Never Assessed Sex and Gender Information Value Date Recorded Sex Assigned at Not on file Gender Identity Not on file Sexual Orientation Not on file documented as of this encounter Plan of Treatment Not on file documented as of this encounter Visit Diagnoses Not on filedocumented in this encounter Care Teams Gold Leaf Layer Relationship Specialty Start Date End Date Keo Orozco APRN [address] [place] [address] PCP - General 09/30/10 09/29/11 documented as of this encounter
--- OUTSIDE RECORDS SUMMARY | 2024-05-31 13:26 | XMS_ITS | Encounter Summary ---
Author Organization [facility] [place] [address] Care Team Providers Care Expert Medical Writer Name Role Phone Keo Orozco APRN Primary Care Provider [phone] Encounter Details Date Type Department Care Team (Late st Contact Info) Description 02/19/2011 3:00 PM EDT Procedure visit [address] [address] Radiology, [place] Social History Tobacco Use Types Packs/Day Years Used Date Smoking Tobacco: Never Assessed Sex and Gender Information Value Date Recorded Sex Assigned at Not on file Gender Identity Not on file Sexual Orientation Not on file documented as of this encounter Plan of Treatment Not on file documented as of this encounter Visit Diagnoses Not on filedocumented in this encounter Care Teams Expert Medical Writer Relationship Specialty Start Date End Date Keo Orozco APRN [address] [place] [address] PCP - General 09/30/10 09/29/11 documented as of this encounter
--- OUTSIDE RECORDS SUMMARY | 2024-05-31 13:26 | XMS_ITS | Encounter Summary ---
Author Organization [facility] [place] [address] Care Team Providers Care Plant Engineer Name Role Phone Aftab Coles MD, Dom Conrad Primary Care Provider [phone] Encounter Details Date Type Department Care Team (Late st Contact Info) Description 08/21/2010 6:00 AM EST Procedure visit [address] [address] Social History Tobacco Use Types [...] filedocumented in this encounter Care Teams Plant Engineer Relationship Specialty Start Date End Date Dom Ugalde Jr., MD PCP - General 08/11/10 09/03/10 documented as of this encounter
--- OUTSIDE RECORDS SUMMARY | 2024-05-31 13:26 | XMS_ITS | Encounter Summary ---
Author Organization [place] [address] Care Team Providers Care Cnc Machine Programmer Name Role Phone Keo Orozco PLANNING INTERN Primary Care Provider Encounter Details Date Type Department Care Team (Late st Contact Info) Description 02/19/2011 11:00 AM EDT Office Visit [address] [address] Social History Tobacco Use Types [...] on filedocumented in this encounter Care Teams Cnc Machine Programmer Relationship Specialty Start Date End Date Keo Orozco APRN [address] [place] [address] PCP - General 09/30/10 09/29/11 documented as of this encounter
--- OUTSIDE RECORDS SUMMARY | 2024-05-31 13:26 | XMS_ITS | Encounter Summary ---
Author Organization [facility] Address [facility] [place] [address] Care Team Providers Care Professor Of Poultry Science Name Role Phone Dom Kennedy MD Primary Care Provider [phone] Encounter Details Date Type Department Care Team (Late st Contact Info) Description 05/28/2020 11:00 AM EDT Office Visit Urology at [facility] [place] [phone] Estrella Hickman MD [facility] [place] [address] Lower urinary tract symptoms (LUTS); Gross hematuria [...] and cola. You do not need to clyuve90 ounces of water today. Urination: You will likely have a small amount of blood in your urine for the next several days. This is normal; however, if you are passing large amounts of blood clots or are unable to void please call our office at [phone] before 5PM or [phone] after hours. Please call if: * you have copious blood in your urine * fevers greater than 101.3 F * you are unable to void The number for questions is [phone] before 5 PM weekdays and [phone] after 5 PM and weekends. Follow-up: With [...] Procedure Name Priority Date/Time Associated Diagnosis Comments NON-STOCK CHECKERER FINAL REPORT Routine 05/28/2020 12:31 PM EDT CYTOPATHOLOGY NON-GYNECOLOGICAL Routine 05/28/2020 12:31 PM EDT Gross hematuria CYSTOSCOPY Routine 05/28/2020 11:00 AM EDT Lower urinary tract symptoms (LUTS) documented in this encounter Results * Non-Machine Slat Basket Maker Final Report (05/28/2020 12:31 PM EDT) Diagnosis Discussion [id number] ? Location: The signing pathologist has (i) examined the relevant preparation(s) for the specimen(s) and (ii) rendered or confirmed the diagnosis(es). . ? Non-Machine Slat Basket Maker Final DIAGNOSIS Atypical Urothelial Cells See discussion. Electronically signed by: ??Cyndi BRASWELL, Miguel Yuan Verified: ??05/30/2020 ?Cytopathologis t Performed at: ??-[facility] Dept. of Pathology, [place], [place] DISCUSSION Urine, voided: Atypical single urothelial cells, some showing degenerative changes, present. Reference: Prosper MENDEZ, ?? Cuong Small ??DFI. The Radha System for Reporting Urinary Cytology. [place]: Soni; 2016. CLINICAL INFORMATION Specimen Source : Urine, voided Pertinent Clinical Data and Significant Therapy: Hematuria Clinical Impression : Gross hematuria Pertinent Radiologic Findings ??: (not provided) Gross Description: Received ??fresh, approximately 65 mL total volume of ?? clear, yellow fluid. Total Preparation: Liquid-Based Prep 1. 05/30/2020 1:11 PM EDT [facility] URINE SPECIMEN OBTAINED BY CLEAN CATCH PROCEDURE / Unknown 05/28/2020 12:31 PM EDT 05/28/2020 12:31 PM EDT Estrella Hickman MD PATHOLOGY/CYTOL OGY ORDERABLES Performing Organization Address [facility] Co de Phone Number [facility] [place] [address] * Cytopathology Non-Gynecological (05/28/2020 12:31 PM EDT) AP Specimen 05/28/2020 12:3 1 PM EDT 05/28/2020 12:31 PM EDT Narrative [facility] - 05/28/2020 12:31 PM EDT Specimen requisition ordered. ??Separate Pathology report to follow Estrella Hickman MD PATHOLOGY/CYTOL OGY ORDERABLES Performing Organization Address [facility] [place] [place] [address] * Cystoscopy - Today (05/28/2020 11:00 AM [...] hematuria documented in this encounter Care Teams Professor Of Poultry Science Relationship Specialty Start Date End Date Dom Kennedy MD PCP - General 12/28/16 documented as of this encounter
--- OUTSIDE RECORDS SUMMARY | 2024-05-31 13:26 | XMS_ITS | Encounter Summary ---
[place] [address] Care Team Providers Care Piece Worker Name Role Phone Keo Orozco APRN Primary Care Provider Encounter Details Date Type Department Care Team ([facility] st Contact Info) Description 03/19/2011 10:30 AM EDT Follow-Up [facility] [address] [place] [address] Ramirez Ahuja MD [address] [place], [place] [address] Social History Tobacco Use Types Packs/Day Years Used Date Smoking Tobacco: Never Assessed Sex and Gender Information Value Date Recorded Sex Assigned at Not on file Gender Identity Not on file Sexual Orientation Not on file documented as of this encounter Plan of Treatment Not on file documented as of this encounter Visit Diagnoses Not on filedocumented in this encounter Care Teams Piece Worker Relationship Specialty Start Date End Date Keo Orozco APRN [address] [place] [address] PCP - General 09/30/10 09/29/11 documented as of this encounter
--- OUTSIDE RECORDS SUMMARY | 2024-05-31 13:26 | XMS_ITS | Encounter Summary ---
[place] [address] Care Team Providers Care Bulkhead Carpenter Name Role Phone Michael Mims MD Primary Care Provider [phone] Encounter Details Date Type Department Care Team ([facility] st Contact Info) Description 03/22/2014 1:00 PM EDT Office Visit [facility] [address] [place] [phone] Ramirez Ahuja MD [address] [place] [address] Social History Tobacco Use Types Packs/Day Years Used Date Smoking Tobacco: Never Assessed Sex and Gender Information Value Date Recorded Sex Assigned at Not on file Gender Identity Not on file Sexual Orientation Not on file documented as of this encounter Plan of Treatment Not on file documented as of this encounter Visit Diagnoses Not on filedocumented in this encounter Care Teams Bulkhead Carpenter Relationship Specialty Start Date End Date Michael Mims MD [address] [place] [address] PCP - General 03/22/14 05/28/14 documented as of this encounter
--- OUTSIDE RECORDS SUMMARY | 2024-05-31 13:26 | XMS_ITS | Encounter Summary ---
[place] [address] Care Team Providers Care Skirt Panel Assembler Name Role Phone Aftab Coles MD, Dom Conrad Primary Care Provider [phone] Encounter Details Date Type Department Care Team ([facility] st Contact Info) Description 08/21/2010 9:30 AM EST Procedure visit [facility] [address] [place] [address] Ramirez Ahuja MD [address] [place] [address] Social History Tobacco Use Types [...] on filedocumented in this encounter Care Teams Skirt Panel Assembler Relationship Specialty Start Date End Date Dom Ugalde Jr., MD PCP - General 08/11/10 09/03/10 documented as of this encounter
--- OUTSIDE RECORDS SUMMARY | 2024-05-31 13:26 | XMS_ITS | Encounter Summary ---
Author Organization [facility] Address [facility] [place] [address] Care Team Providers Care Clinic Business Manager Name Role Phone Keo Orozco DATA REDUCTION TECHNICIAN Primary Care Provider Encounter Details Date Type Department Care Team ([facility] st Contact Info) Description 06/21/2011 1:00 PM EST Follow-Up [address] [phone] Janie Saravia PA [address] [place] [address] Social History Tobacco Use Types Packs/Day Years [...] Date Keo Orozco APRN [address] [place] [address] PCP - General 09/30/10 09/29/11 documented as of this encounter
--- OUTSIDE RECORDS SUMMARY | 2024-05-31 13:26 | XMS_ITS | Encounter Summary ---
Author Organization Formerly [facility] [place] [address] Care Team Providers Care Clinical Fellow Name Role Phone Keo Orozco JAZZ MUSICIAN Primary Care Provider Encounter Details Date Type Department Care Team (Late st Contact Info) Description 03/18/2011 2:30 PM EDT Office Visit [address] [address] Social History Tobacco Use [...] filedocumented in this encounter Care Teams Clinical Fellow Relationship Specialty Start Date End Date Keo Orozco APRN [address] [place] [address] PCP - General 09/30/10 09/29/11 documented as of this encounter
--- OUTSIDE RECORDS SUMMARY | 2024-05-31 13:26 | XMS_ITS | Encounter Summary ---
[facility] Organization [facility] [place] [address] Care Team Providers Care Director Digital Marketing Name Role Phone Keo Orozco APRN Primary Care Provider Encounter Details Date Type Department Care Team (Late st Contact Info) Description 03/05/2011 10:00 AM EDT Office Visit [facility] [address] [place] [phone] Damon Gutierres MD [address] [place] [address] Social History Tobacco Use Types Packs/Day Years Used Date Smoking Tobacco: Never Assessed Sex and Gender Information Value Date Recorded Sex Assigned at Not on file Gender Identity Not on file Sexual Orientation Not on file documented as of this encounter Plan of Treatment Not on file documented as of this encounter Visit Diagnoses Not on filedocumented in this encounter Care Teams Director Digital Marketing Relationship Specialty Start Date End Date Keo Orozco APRN [address] [place] [address] PCP - General 09/30/10 09/29/11 documented as of this encounter
--- OUTSIDE RECORDS SUMMARY | 2024-05-31 13:26 | XMS_ITS | Encounter Summary ---
[place] [address] Care Team Providers Care Mechanical Systems Designer Name Role Phone Keo Orozco BURNER TECHNICIAN Primary Care Provider Encounter Details Date Type Department Care Team ([facility] st Contact Info) Description 12/30/2010 4:00 PM EDT Office Visit [facility] [address] [place] [address] Lorene Luna, RD [address] [facility] [place] [address] Social History Tobacco Use Types Packs/Day Years Used Date Smoking Tobacco: Never Assessed Sex and Gender Information Value Date Recorded Sex Assigned at Not on file Gender Identity Not on file Sexual Orientation Not on file documented as of this encounter Plan of Treatment Not on file documented as of this encounter Visit Diagnoses Not on filedocumented in this encounter Care Teams Mechanical Systems Designer Relationship Specialty Start Date End Date Keo Orozco APRN [address] [place] [address] PCP - General 09/30/10 09/29/11 documented as of this encounter
--- OUTSIDE RECORDS SUMMARY | 2024-05-31 13:26 | XMS_ITS | Encounter Summary ---
[place] [address] Care Team Providers Care Finished Cloth Examiner Name Role Phone Keo Orozco APRN Primary Care Provider Encounter Details Date Type Department Care Team ([facility] st Contact Info) Description 11/12/2010 9:15 AM EDT Office Visit [facility] [address] [place] [address] Ramirez Ahuja MD [address] [place] [address] Social History Tobacco Use Types [...] on filedocumented in this encounter Care Teams Finished Cloth Examiner Relationship Specialty Start Date End Date Keo Orozco APRN [address] [place] [address] PCP - General 09/30/10 09/29/11 documented as of this encounter
--- OUTSIDE RECORDS SUMMARY | 2024-05-31 13:26 | XMS_ITS | Encounter Summary ---
[place] [address] Care Team Providers Care Counseling Services Director Name Role Phone Michael Mims MD Primary Care Provider [phone] Encounter Details Date Type Department Care Team ([facility] st Contact Info) Description 04/05/2012 3:30 PM EDT Office Visit [facility] [address] [place] [phone] David Holliday, PhD [address] [place] [address] Social History Tobacco Use Types Packs/Day Years Used Date Smoking Tobacco: Never Assessed Sex and Gender Information Value Date Recorded Sex Assigned at Not on file Gender Identity Not on file Sexual Orientation Not on file documented as of this encounter Plan of Treatment Not on file documented as of this encounter Visit Diagnoses Not on filedocumented in this encounter Care Teams Counseling Services Director Relationship Specialty Start Date End Date Michael Mims MD [address] [place] [address] PCP - General 10/11/11 03/21/14 documented as of this encounter
--- OUTSIDE RECORDS SUMMARY | 2024-05-31 13:26 | XMS_ITS | Encounter Summary ---
[place] [address] Care Team Providers Care Apple Picker Name Role Phone Dom Kennedy MD Primary Care Provider [phone] Encounter Details Date Type Department Care Team (Late st Contact Info) Description 11/10/2012 Abstract [facility] Information Services [address] [place] [phone] Provider, His MD [place] Social History Tobacco [...] oz) 11/10/2012 10:45 AM EDT Sourced from [place] Conversion Height 175.3 cm (5' 9) 11/10/2012 10:4 5 AM EDT Sourced from [place] Conversion Body Mass Index 32.07 11/10/2012 10:45 AM EDT documented in this encounter Plan of Treatment Not on file documented as of this encounter Visit Diagnoses Not on filedocumented in this encounter Care Teams Apple Picker Relationship Specialty Start Date End Date Dom Kennedy MD PCP - General 12/28/16 documented as of this encounter
--- OUTSIDE RECORDS SUMMARY | 2024-05-31 13:26 | XMS_ITS | Encounter Summary ---
Author Organization [facility] [place] [address] Care Team Providers Care Psychologist Clinical Name Role Phone Dom Kennedy MD Primary Care Provider [phone] Encounter Details Date Type Department Care Team (Late st Contact Info) Description 02/19/2011 [place] [phone] Keo Orozco, ASSISTANT DRAFTER [address] [place], [place] [id number] Social History Tobacco Use Types Packs/Day Years [...] Report EXAMINATION: ??DHK 8600 - KNEE (BILATERAL,3VWS) ?[id number] DIAGNOSIS: ?DHK X-RAY JOINT PAIN-LOWER LEG REASON: [...] Report EXAMINATION: DHK 8600 - KNEE (BILATERAL,3VWS) [id number] DIAGNOSIS: K X-RAY JOINT PAIN-LOWER LEG REASON: [...] FORTUNE M.D. Feb 22 2011 9:59P Keo Crisostomo Orozco ASSISTANT DRAFTER IMG DX ORDERABLES documented in this encounter Visit Diagnoses Not on filedocumented in this encounter Care Teams Psychologist Clinical Relationship Specialty Start Date End Date Dom Kennedy MD PCP - General 12/28/16 documented as of this encounter
--- OUTSIDE RECORDS SUMMARY | 2024-05-31 13:26 | XMS_ITS | Encounter Summary ---
[place] [address] Care Team Providers Care Veneer Drier Name Role Phone Michael Mims MD Primary Care Provider [phone] Encounter Details Date Type Department Care Team (Late st Contact Info) Description 01/04/2012 11:40 AM EDT Office Visit [address] [address] Michael Mims MD [address] [place] [address] Social History Tobacco Use Types Packs/Day Years Used Date Smoking Tobacco: Never Assessed Sex and Gender Information Value Date Recorded Sex Assigned at Not on file Gender Identity Not on file Sexual Orientation Not on file documented as of this encounter Plan of Treatment Not on file documented as of this encounter Visit Diagnoses Not on filedocumented in this encounter Care Teams Veneer Drier Relationship Specialty Start Date End Date Michael Mims MD [address] [place] [address] PCP - General 10/11/11 03/21/14 documented as of this encounter
--- OUTSIDE RECORDS SUMMARY | 2024-05-31 13:26 | XMS_ITS | Encounter Summary ---
Author Organization [facility] [place] [address] Care Team Providers Care Ore Sampler Name Role Phone Dom Kennedy MD Primary Care Provider [phone] Encounter Details Date Type Department Care Team (Late st Contact Info) Description 12/16/2010 [place] [phone] Unknown None Social History Tobacco Use Types [...] EXAMINATION: ??RAD 7422 - BARIUM SWALLOW (ESOPHAGUS) 87440 DIAGNOSIS: ?MORBID OBESITY, GERD, DIABETES REASON: ? Post Lap. Gastric Band RESULT: ? Clinical Indication: ??Post lap band procedure. FINDINGS: ?The preliminary punch press setter film demonstrates characteristic positioning of the metallic [...] EXAMINATION: RAD 7422 - BARIUM SWALLOW (ESOPHAGUS) 16603 DIAGNOSIS: MORBID OBESITY, GERD, DIABETES REASON: Post Lap. Gastric Band RESULT: Clinical Indication: Post lap band procedure. FINDINGS: The preliminary punch press setter film demonstrates characteristic positioning of the metallic [...] on filedocumented in this encounter Care Teams Ore Sampler Relationship Specialty Start Date End Date Dom Kennedy MD PCP - General 12/28/16 documented as of this encounter
--- OUTSIDE RECORDS SUMMARY | 2024-05-31 13:26 | XMS_ITS | Encounter Summary ---
Author Organization [facility] [place] [address] Care Team Providers Care Surgical Tech Name Role Phone Dom Kennedy MD Primary Care Provider [phone] Encounter Details Date Type Department Care Team (Late st Contact Info) Description 12/16/2010 [place] [phone] Unknown None Social History Tobacco Use Types [...] EXAMINATION: ??CT ??7991 - CT CHEST W/CONTRAST ??[address]328 DIAGNOSIS: ?MORBID OBESITY, GERD, DIABETES REASON: ? [...] EXAMINATION: CT 7991 - CT CHEST W/CONTRAST 23329 DIAGNOSIS: MORBID OBESITY, GERD, DIABETES REASON: elevated [...] on filedocumented in this encounter Care Teams Surgical Tech Relationship Specialty Start Date End Date Dom Kennedy MD PCP - General 12/28/16 documented as of this encounter
--- OUTSIDE RECORDS SUMMARY | 2024-05-31 13:26 | XMS_ITS | Encounter Summary ---
Author Organization [facility] [place] [address] Care Team Providers Care Enrollment Management Manager Name Role Phone Dom Kennedy MD Primary Care Provider [phone] Reason for Visit * Reason Comments Follow-up Encounter Details Date Type Department Care Team ([facility] st Contact Info) Description 03/17/2020 11:30 AM EDT Office Visit General Surgery at [address] [phone] Dom Richardson MD [address] [place] [address] [place] [address] Encounter for adjustment of gastric [...] band placed 12/15/[address]Donald Ahuja at [facility]. Preoperative weight: #250 Last adjustment: 12/05/[address] Keo Cardoso at [facility]. 0.25 mL's removed for yellow zone [...] PSH/Diagnostic History: Last colonoscopy on file at [place] July 2017 colonoscopy with polyp removals. Seen at [facility] August 2023 lumbar blocks relieve back pain. ?? Nuclear stress test [facility] in 2014 reportedly negative ?? Treadmill stress test [facility] August 21, [address] [...] He is and lives with his in [place], [place]. 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 He has never smoked. He drinks a [...] status documented in this encounter Care Teams Enrollment Management Manager Relationship Specialty Start Date End Date Dom Kennedy MD PCP - General 12/28/16 documented as of this encounter
--- OUTSIDE RECORDS SUMMARY | 2024-05-31 13:27 | XMS_ITS | Encounter Summary ---
Author [place] [address] Care Team Providers Care District Resource Officer Name Role Phone Aftab Coles MD, Dom Conrad Primary Care Provider [phone] Encounter Details Date Type Department Care Team ([facility] st Contact Info) Description 07/30/2010 2:30 PM EST Office Visit [facility] [address] [place] [address] Lorene Luna, RD 590 [facility] [address] Social History Tobacco Use Types Packs/Day Years Used Date Smoking Tobacco: Never Assessed Sex and Gender Information Value Date Recorded Sex Assigned at Not on file Gender Identity Not on file Sexual Orientation Not on file documented as of this encounter Plan of Treatment Not on file documented as of this encounter Visit Diagnoses Not on filedocumented in this encounter Care Teams District Resource Officer Relationship Specialty Start Date End Date Dom Ugalde Jr., MD PCP - General 07/07/10 08/05/10 documented as of this encounter
--- OUTSIDE RECORDS SUMMARY | 2024-05-31 13:27 | XMS_ITS | Encounter Summary ---
[place] [address] Care Team Providers Care Business Services Intern Name Role Phone Dom Kennedy MD Primary Care Provider [phone] Encounter Details Date Type Department Care Team (Late st Contact Info) Description 08/15/2009 External Results Lab at [address] [phone] Social History Tobacco Use Types Packs/Day Years [...] Report (02/04/2010 1:47 PM EDT) Final Diagnosis [facility] Final Diagnosis 1. ??ASCENDING COLON BIOPSY: [...] totally submitted in two cassettes. Con[facility] Case Type: ? Routine Surgical Requesting Provider: ??LETICIA GALEANA M.D. [facility] Pathology Staff Roles Gross: Olman Stuart M.D. ? (P) N ? (ADDITIONAL) Pathologist: Olman Stuart M.D. ? (P) [facility] REPORT CONVERSION 02/04/2010 1:47 PM EDT Provider Kristin Pathology Report Convers ion PATHOLOGY/CYTOLOGY ORDERABLES [facility] REPORT CONVERSION documented in this encounter Visit Diagnoses Not on filedocumented in this encounter Care Teams Business Services Intern Relationship Specialty Start Date End Date Dom Kennedy MD PCP - General 12/28/16 documented as of this encounter
--- OUTSIDE RECORDS SUMMARY | 2024-05-31 13:27 | XMS_ITS | Encounter Summary ---
[place] [address] Care Team Providers Care Domestic Freight Forwarder Name Role Phone Unavailable Primary Care Provider Unavailabl e Encounter Details Date Type Department Care Team (Late st Contact Info) Description 06/24/2010 9:00 AM EST Procedure visit [address] [address] Janie Saravia MD [facility] Social History Tobacco Use Types Packs/Day Years [...]
--- OUTSIDE RECORDS SUMMARY | 2024-05-31 13:27 | XMS_ITS | Encounter Summary ---
[place] [address] Care Team Providers Care Merchandising Lead Name Role Phone Aftab Coles MD, Dom Conrad Primary Care Provider [phone] Encounter Details Date Type Department Care Team (Late st Contact Info) Description 08/19/2010 3:45 PM EST Office Visit [address] [phone] Keo Orozco APRN [address] [place] [address] Social History Tobacco Use Types Packs/Day Years Used Date Smoking Tobacco: Never Assessed Sex and Gender Information Value Date Recorded Sex Assigned at Not on file Gender Identity Not on file Sexual Orientation Not on file documented as of this encounter Plan of Treatment Not on file documented as of this encounter Visit Diagnoses Not on filedocumented in this encounter Care Teams Merchandising Lead Relationship Specialty Start Date End Date Dom Ugalde Jr., MD PCP - General 08/11/10 09/03/10 documented as of this encounter
--- OUTSIDE RECORDS SUMMARY | 2024-05-31 13:27 | XMS_ITS | Encounter Summary ---
Author [place] [address] Care Team Providers Care Retail Consultant Name Role Phone Aftab Coles MD, Dom Conrad Primary Care Provider [phone] Encounter Details Date Type Department Care Team ([facility] st Contact Info) Description 07/30/2010 3:30 PM EST Office Visit [address] [phone] Maura Rooney, PsVincent [address] [place] [address] PS[place] [address] Social History Tobacco Use Types [...] on filedocumented in this encounter Care Teams Retail Consultant Relationship Specialty Start Date End Date Dom Ugalde Jr., MD PCP - General 07/07/10 08/05/10 documented as of this encounter
[2024-06-01 11:18] LABS: HSV 1 DNA Result Positive (Negative); HSV 2 DNA Result Negative (Negative)
[2024-06-01 11:42] LABS: Varicella Zoster DNA Result Negative (Negative)
== END 2024-05-31 13:22 | disposition home or self-care (01) ==
LOC: NCHCN 13:21
PROVIDERS: PCP Student in an Organized Health Care Education/Training Program; Visit Provider Nurse Practitioner Family
DX: H60.91 Unspecified otitis externa, right ear (principal)
CPT/HCPCS: 87529; 87798; 87070; 87205

== ENCOUNTER 2024-06-04 14:39 | Observation (INO) | payer BC, SELFPAY ==
[2024-06-04] VITALS (21 sets, daily range): BP systolic 134–173; BP diastolic 62–106; PULSE 77–103; RESP 10–25; TEMP 36.2–37.2; O2SAT 92–98
--- NOTE | 2024-06-04 14:30 | RT.EKG_ITS ---
APPROVED REPORT Exam: Resting ECG Reason for Exam: chest pain Patient Location: E HR:97 bpm ECG Measurements Heart Rate 97 AXIS [place] 165 P 68 QRSd 89 QRS 37 QT 344 T 24 QTc 437 Conclusion Sinus rhythm...normal P axis, V-rate 60- 99 Narrow complex normal sinus rhythm at a rate of 97. Normal axis. Intervals within normal limits. N o ST segment abnormalities. T wave flattening inferior leads. Compared to prior dated earlier this month T wave flattening is similar. No acute injury pattern.
--- NOTE | 2024-06-04 14:50 | ED.GENADUL_ITS ---
Discharge Plan Discharge Details Chief Complaint: Chest Pain Clinical Impression: Confusion Primary Care Provider: Kade Higuera ED Provider: Dom Brooks Home Meds and New Rx's Prescriptions: No Action tamsulosin 0.4 mg Capsule 0.4 mg PO DAILY insulin glargine [Lantus Solostar U-100 Insulin] 100 unit/mL (3 mL) insulin pen 20 unit subcut .QD empagliflozin 25 mg tablet 25 mg PO DAILY gabapentin 100 mg capsule See Rx Instructions PO QHS PRN Rx Instructions: orally every day at bedtime PRN; orally every day at bedtime; 1-3 tabs; cyclobenzaprine 5 mg tablet See Rx Instructions PO TID PRN Rx Instructions: 1-2 tabs orally three times a day PRN; glipizide 2.5 mg tablet extended release 24hr 2.5 mg PO DAILY meloxicam 15 mg tablet See Rx Instructions .ROUTE .COMPLEX Qty: 30 2RF Dose Instruction: TAKE ONE TABLET BY MOUTH EVERY DAY Rx Instructions: TAKE ONE TABLET BY MOUTH EVERY DAY fluoxetine 40 MG capsule 40 mg PO DAILY metformin 500 mg tablet extended release 24 hr 1,500 mg PO DAILY albuterol sulfate 90 mcg/actuation HFA aerosol inhaler 3 puff inhalation QID MDD 3 puffs every 4 hours PRN (Reason: shortness of breath or wheezing) Qty: 6.7 0RF cefpodoxime 200 mg tablet 200 mg PO BID Qty: 12 0RF Rx Instructions: must administer with a meal/food HPI General Date/Time Provider Initiated Documentation: 06/04/24 14:43 . HPI Narrative: MDM This is an overall well-appearing afebrile and not tachycardic 63-year-old male with hypertension hyperlipidemia diabetes with an episode of acute confusion, fatigue word finding difficulties concerning for CVA versus TIA for which rosy ent will undergo CT angiogram head and neck, tele neuroconsult and possible MRI. Given truncal ataxia and positive Romberg I am concerned for posterior circulation CVA. No pain or proportion to suggest necrotizing soft tissue infection. No chest pain to suggest aortic dissection. No loss of bowel or bladder control so my suspicion is low for seizures I do not feel that the patient requires an EEG. No nuchal rigidity to suggest meningitis so no indication for lumbar puncture. Not altered to suggest encephalitis. Will assess for any acute electrolyte abnormalities. Patient had some chest pain yesterday does not have any chest pain at the moment. Will send 2 sets of troponins to assess for myocardial injury and dysrhythmia. Patient is not markedly hypertensive nor tachycardic and denies any illicit drug use and my suspicion for sympathomimetic toxidrome is exceedingly low. 3:30 PM CBC lacks anemia thrombocytopenia and leukocytosis. 4:07 PM Reassuring initial troponin. Base metabolic panel with no MARIA EUGENIA. No acute electrolyte abnormalities. No hyperglycemia. Normal reassuring magnesium. Mildly elevated TSH. Normal reassuring free T4. 5:07 PM I signed patient out to Dr. Calles. Chronic conditions affecting the care of the patient: Diabetes hypertension hyperlipidemia History obtained from an outside historian: Patient's External record review: [facility] [Diagnostic interpretations performed by me: Per my independent interpretation chest x-ray shows: Per my independent interpretation EKG shows: Narrow complex normal sinus rhythm at a rate of 97. Normal axis. Intervals within normal limits. No ST segment abnormalities. T wave flattening inferior leads. Compared to prior dated earlier this month T wave flattening is similar. No acute injury pattern. ]Medications: N/A Social determinants of health affecting disposition: N/A Management discussed with: Neurology Treatment/interventions considered: N/A Response to therapies provided: N/A HPI This is a 63-year-old male history of hypertension hyperlipidemia diabetes arriving via private vehicle with his in setting of a period of confusion and increased fatigue yesterday. Patient reportedly had difficulties speaking yesterday while he was out in public. He could not remember the day. He has been off of his antibiotics since he was discharged earlier this month in the setting of pneumosepsis. He denies dysuria frequency fevers chills. He has never had a CVA in the past and denies history of acute heart failure. He did not fall strike his head nor lose consciousness. He has had no focal areas of weakness. He is using topical treatment for inguinal candidiasis. He denies routine tobacco, ethanol, and illicits. Exam General: Well-appearing in no acute distress speaking in complete sentences. Head: Normocephalic, atraumatic. Eye:[Pupils equal, round reactive to light.] Extraocular eye movements intact. No conjunctival injection. No scleral icterus. Ear, nose, mouth, throat: Grossly normal inspection. Normal voice, handling secretions normally. Neck: Trachea midline. Cardiovascular: Well-perfused distal extremities. Regular rate and rhythm. Respiratory: Nonlabored respiration. Clear lungs. Gastrointestinal: Nondistended abdomen. Soft nontender. No rebound. No guarding. Musculoskeletal: No edema. Moving all 4 extremities spontaneously. Skin: Normal for age and race, grossly normal temperature and turgor. No acute rash. Neurologic: Alert and appropriate. Cranial nerves II through XII intact grossly. 5 out of 5 bilateral upper lower extremity strength. No pronator drift. Positive Romberg with truncal ataxia. No dysmetria nor dysdiadochokinesia. Psychiatric: Mood and manner are appropriate. Grooming and personal hygiene are appropriate. Related Data Home Medications ?Medication ?Instructions ?Recorded ?Confirmed fluoxetine 40 mg capsule 40 mg PO DAILY 06/14/13 06/04/24 tamsulosin 0.4 mg capsule 0.4 mg PO DAILY 04/20/19 06/04/24 empagliflozin 25 mg tablet 25 mg PO DAILY 02/17/23 06/04/24 insulin glargine 100 unit/mL (3 20 unit subcut .QD 02/17/23 06/04/24 mL) subcutaneous pen (Lantus Solostar U-100 Insulin) gabapentin 100 mg capsule See Rx Instructions PO QHS PRN 07/18/23 06/04/24 metformin 500 mg tablet,extended 1,500 mg PO DAILY 07/18/23 06/04/24 release 24 hr albuterol sulfate 90 mcg/actuation 3 puff inhalation QID PRN 07/28/23 06/04/24 aerosol inhaler shortness of breath or wheezing #6.7 grams cyclobenzaprine 5 mg tablet See Rx Instructions PO TID PRN 04/11/24 06/04/24 glipizide 2.5 mg tablet, extended 2.5 mg PO DAILY 04/11/24 06/04/24 release 24 hr meloxicam 15 mg tablet See Rx Instructions .Route 04/29/24 06/04/24 .COMPLEX #30 tabs cefpodoxime 200 mg tablet 200 mg PO BID #12 tabs 05/21/24 06/04/24 Previous Rx's ?Medication ?Instructions ?Recorded albuterol sulfate 90 mcg/actuation 3 puff inhalation QID PRN 07/28/23 aerosol inhaler shortness of breath or wheezing #6.7 grams meloxicam 15 mg tablet See Rx Instructions .Route 04/29/24 .COMPLEX #30 tabs cefpodoxime 200 mg tablet 200 mg PO BID #12 tabs 05/21/24 Allergies Allergy/AdvReac Type Severity Reaction Status Date / Time ENVIRONMENTAL/DOGS/CATS Allergy Mild ITCHY Uncoded 06/04/24 14:46 WATERY EYES General Stated Complaint: Chest Pain SAM: 3 Course Vital Signs Vital signs: Vital Signs Temperature 36.2 C L 06/04/24 14:42 Pulse 97 H 06/04/24 14:42 Respiratory Rate 18 06/04/24 14:42 Blood Pressure 134/96 H 06/04/24 14:42 Pulse Oximetry 98 06/04/24 14:42 Temperature 36.2 C L 06/04/24 14:42 Pulse 97 H 06/04/24 14:42 Respiratory Rate 18 06/04/24 14:42 Respiratory Effort Normal 06/04/24 14:47 Blood Pressure 134/96 H 06/04/24 14:42 Pulse Oximetry 98 06/04/24 14:42 Oxygen Delivery Method Room Air 06/04/24 14:42 Oxygen Flow Rate 0 06/04/24 14:42 Pain Level 1 06/04/24 14:42 Medical Decision Making Quality:SDOH Health Related Social Needs: No Data to Display PFSH All Active Problems (Updated 06/04/24 @ 17:09 by Dom Brooks MD) Confusion (Acute) Hamstring tightness of both lower extremities (Acute) Patellar tendinitis of both knees (Acute) Left knee pain (Acute) Right knee pain (Acute) Paresthesias (Acute) Corns and callosities (Acute) Hemangioma (Acute) Tubular adenoma (Acute ~07/2023) Screen for colon cancer (Acute) Atypical pigmented skin lesion (Acute) Colon adenomas (Acute) 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) [place]-Schlatter's disease (Acute) Hyperlipidemia (Acute) Sensorineural hearing loss (SNHL) of right ear with unrestricted hearing of left ear (Acute) Pain of right patellofemoral joint (Chronic) Depo-Medrol injection: 04/27/2024 Pain of left patellofemoral joint (Chronic) Depo-Medrol injection: 04/27/2024 Primary hypoadrenalism (Acute) Dysthymic disorder (Acute) HTN (hypertension) (Chronic) Insulin dependent type 2 diabetes mellitus (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 Gross hematuria BMI 28.0-28.9,adult Lower urinary tract symptoms (LUTS) Balanitis Concussion Seborrheic keratosis Exposure to hepatitis B Lower urinary tract infection Obesity Surgical History History of removal of nevus Hx of laparoscopic gastric banding (~12/25/10) 2009 colonoscopy (~07/2023) path sent Social History Smoking/Tobacco Use Status: Never Smoking risk assessment performed?: Yes Alcohol Intake: current Alcohol Intake frequency: holidays/special occasions only Drug use: Never Substance use type: does not use Household members: spouse and children Housing: house Number of Children: 1 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 Do you feel safe at home: Yes Do you feel safe in your relationship?: Yes
--- OUTSIDE RECORDS SUMMARY | 2024-06-04 14:54 | XMS_ITS | Encounter Summary ---
Author Organization [facility] Address [address] [place] [address] Care Team Providers Care Incident Response Lead Name Role Phone Dom Kennedy MD Primary Care Provider [phone] Encounter Details Date Type Department Care Team (Late st Contact Info) Description 02/05/2022 Lab Requisition [facility] Pathology & Laboratory Medicine - [address] [id number] Outr Resulting Lab, Provider Social History Tobacco [...] PSA 1.6 <=4.5 ng/mL 02/05/2022 21:58 EDT [facility] Blood VENOUS BLOOD / Unknown 02/05/2022 8:48 EDT 02/05/2022 20:06 EDT Narrative [facility] - 02/05/2022 21:58 EDT NOTE: Serum PSA concentration should not be interpreted as absolute evidence for the presence or absence of malignant disease. Assayed on Siemens ADVIA Centaur XPT using chemiluminescent technology.??Values obtained by using different assay methods cannot be used interchangeably. Provider Outr Resulting Lab CHEMISTRY & BLOOD GAS ORDERABLES [facility] [address] [place] [address] documented in this encounter Visit Diagnoses Not on filedocumented in this encounter Care Teams Incident Response Lead Relationship Specialty Start Date End Date Dom Kennedy MD [address] [place], [place] [id number] PCP - General 12/14/18 documented as of this encounter
--- OUTSIDE RECORDS SUMMARY | 2024-06-04 14:54 | XMS_ITS | Encounter Summary ---
Author Organization [facility] [place] [address] Care Team Providers Care Ingredient Scaler Helper Name Role Phone Ralph Ellison MD Primary Care Provider [phone] Encounter Details Date Type Department Care Team (Late st Contact Info) Description 10/30/2015 10:30 AM EDT Office Visit Cardiology at [address] [place] [address] Quentin Alejo MD [facility] [place] [address] Atypical chest pain Social History Tobacco Use [...] from the original note were not included. [facility] ANTHONY Bui [id number] CARDIOLOGY OUTPATIENT FOLLOW-UP NOTE Jefry Guadrarama [id number] PCP: RALPH ELLISON MD 10/30/2015 PRIMARY CARE PROVIDER: RALPH ELLISON MD PROBLEM LIST: Patient Active Problem List Diagnosis ??? Atypical chest pain ?? Nuclear stress test [facility] in 2014 reportedly negative ?? Treadmill stress test [facility] August 21, [address] depression [...] He had a nuclear stress test at [facility] a year ago which was negative. More recently he had a treadmill stress test at [facility] in this elicited some discomfort and EKG [...] pain documented in this encounter Care Teams Ingredient Scaler Helper Relationship Specialty Start Date End Date Ralph Ellison MD [facility] [address] [place] [address] PCP - General General Internal Medicine 09/05/1512/13 documented as of this encounter
--- OUTSIDE RECORDS SUMMARY | 2024-06-04 14:54 | XMS_ITS | Encounter Summary ---
Author Organization [facility] Address [address] [place] [address] Care Team Providers Care Strategic Planning Consultant Name Role Phone oDm Kennedy MD Primary Care Provider [phone] Encounter Details Date Type Department Care Team (Late st Contact Info) Description 03/17/2023 Lab Requisition [facility] Pathology & Laboratory Medicine - [address] [phone] Outr Resulting Lab, Provider Social History Tobacco [...] PSA 1.1 <=4.5 ng/mL 03/17/2023 22:45 EDT [facility] Blood VENOUS BLOOD / Unknown 03/17/2023 9:50 EDT 03/17/2023 21:48 EDT Narrative [facility] - 03/17/2023 22:45 EDT NOTE: Serum PSA concentration should not be interpreted as absolute evidence for the presence or absence of malignant disease. Assayed on Siemens ADVIA Centaur XPT using chemiluminescent technology.??Values obtained by using different assay methods cannot be used interchangeably. Provider Outr Resulting Lab CHEMISTRY & BLOOD GAS ORDERABLES [facility] [address] [place] [address] documented in this encounter Visit Diagnoses Not on filedocumented in this encounter Care Teams Strategic Planning Consultant Relationship Specialty Start Date End Date Dom Kennedy MD [address] [place], [place] [id number] PCP - General 12/14/18 documented as of this encounter
--- OUTSIDE RECORDS SUMMARY | 2024-06-04 14:54 | XMS_ITS | Encounter Summary ---
Author Organization [facility] Address [address] [place] [address] Care Team Providers Care English And Reading Instructor Name Role Phone Dom Kennedy MD Primary Care Provider [phone] Encounter Details Date Type Department Care Team (Late st Contact Info) Description 07/25/2023 Lab Requisition [facility] Pathology & Laboratory Medicine - [address] [address] Ramy Knapp MD [address] [place] [address], [address] [place] [address] Encounter for screening for malignant [...] management options, if applicable. 07/26/2023 16:08 EST [facility] Final Diagnosis A. SKIN BELOW KNEE, RIGHT, EXCISION: - Hemangioma. B. COLON POLYP, 75 CM, BIOPSY: - Tubular adenoma. See comment. 07/26/2023 16:08 [facility] Diagnosis Comment Specimen B been reviewed by Dr. Barba who concurs with the above diagnosis. 07/26/2023 16:08 [facility] Attestation By the signature below, the attending physician certifies that they have 1) personally conducted a gross and/or microscopic examination of the described specimen(s), and/or personally interpreted the results of laboratory testing of the described specimen(s), and 2) personally rendered or confirmed the above diagnosis. 07/26/2023 16:08 [facility] at 1607 Clinical History A. Bx lesion RT knee, vascular appearing skin lesion-pigmented; B. Colon polyp @ 75 cm, screening colonoscopy, polyp 07/26/2023 16:08 [facility] Gross Description A. Received [...] B1. FITO TEJEDA(ASCP) 07/26/2023 7:44 07/26/2023 16:08 [facility] Performing Lab [facility] 07/26/2023 16:08 [facility] Scanned Images 07/26/2023 16:08 [facility] Tissue COLON STRUCTURE / Unknown 07/25/2023 10:47 EST 07/25/2023 18:16 EST Tissue specimen (specimen) COLON STRUCTURE / Unknown 07/25/2023 10:47 EST 07/25/2023 18:16 EST Ramy Knapp MD PATHOLOGY ORDERABLES [facility] [address] [place] [address] documented in this encounter Visit Diagnoses Diagnosis Encounter for screening for malignant neoplasm of colon Special screening for malignant neoplasms, colon documented in this encounter Care Teams English And Reading Instructor Relationship Specialty Start Date End Date Dom Kennedy MD [facility] [place] [place] [address] PCP - General 12/14/18 documented as of this encounter
--- OUTSIDE RECORDS SUMMARY | 2024-06-04 14:54 | XMS_ITS | Encounter Summary ---
Author Organization [facility] Address [facility] [place] [address] Care Team Providers Care Automatic Grinder Operator Name Role Phone Dom Kennedy MD Primary Care Provider [phone] Encounter Details Date Type Department Care Team (Late st Contact Info) Description 09/08/2020 11:20 AM EST Office Visit Urology at [facility] [place] [phone] Estrella Hickman MD [facility] [place] [address] Gross hematuria; Benign localized prostatic hyperplasia with [...] Referred him to Nadege Gaona NP at [facility]. He had the following tests and [...] HEALTH: good REVIEW OF SYSTEMS: Negative. -- REMITTANCE CLERK - No headaches or loss of consciousness [...] (LUTS) documented in this encounter Care Teams Automatic Grinder Operator Relationship Specialty Start Date End Date Dom Kennedy MD PCP - General 12/28/16 documented as of this encounter
--- OUTSIDE RECORDS SUMMARY | 2024-06-04 14:54 | XMS_ITS | Encounter Summary ---
Author Organization [facility] [place] [address] Care Team Providers Care Market Master Name Role Phone Dom Kennedy MD Primary Care Provider [phone] Reason for Visit * Reason Onset Date Comments Prior Authorization 01/30/2021 Encounter Details Date Type Department Care Team (Late st Contact Info) Description 01/30/2021 Telephone [place] [phone] Faiza Armijo Prior Authorization Social History Tobacco [...] request: Type II DM Health plan: [facility] Authorizing access representative name: Nieves Sent to health plan on: 02/10/21 Health plan decision: Approved Quantity approved: Authorization number: [id number] Start date: 01/11/21 End date: 02/10/22 documented in this encounter Plan of Treatment Not on file documented as of this encounter Visit Diagnoses Not on filedocumented in this encounter Care Teams Market Master Relationship Specialty Start Date End Date Dom Kennedy MD PCP - General 12/28/16 documented as of this encounter
--- OUTSIDE RECORDS SUMMARY | 2024-06-04 14:54 | XMS_ITS | Encounter Summary ---
Author Organization [facility] Address [address] [place] [address] Care Team Providers Care Printing Pressman Name Role Phone Dom Kennedy MD Primary Care Provider [phone] Encounter Details Date Type Department Care Team (Late st Contact Info) Description 05/09/2020 Lab Requisition [facility] Pathology & Laboratory Medicine - [address] [phone] Outr Resulting Lab, Provider Social History Tobacco [...] rt-PCR Result NEGATIVE Negative 05/10/2020 21:36 EDT [facility] Comment: 2019-novel Coronavirus [...] in accordance with CLIA regulations, [employer] [place] [employer] (CAP) guidelines (Nov 01, 2019), and FDA guidance (Oct 13, 2019). This test is only for use under the Food and Drug Administration's Emergency Use Authorization. Swab ENTIRE NASOPHARYNX / Unknown 05/09/2020 10:54 EDT 05/09/2020 17:25 EDT Provider Outr Resulting Lab MICROBIOLOGY - GENERAL ORDERABLES [facility] [place] * COVID-19 TESTING (05/09/2020 10:54 EDT) COVID-19 rt-PCR Result NEGATIVE Negative 05/10/2020 23:35 EDT [facility] Comment: 2019-novel Coronavirus (2019-nCoV) not detected [...] in accordance with CLIA regulations, [employer] [place] [employer] (CAP) guidelines (Nov 01, 2019), and FDA guidance (Oct 13, 2019). This test is only for use under the Food and Drug Administration's Emergency Use Authorization. Performing Lab [facility] 05/10/2020 23:35 EDT [facility] Swab 05/09/2020 10:5 4 EDT 05/09/2020 17:25 EDT Provider Outr Resulting Lab MICROBIOLOGY - GENERAL ORDERABLES [facility] [address] [place] [address] [facility] [place] [place] documented in this encounter Visit Diagnoses Not on filedocumented in this encounter Care Teams Printing Pressman Relationship Specialty Start Date End Date oDm Kennedy MD [address] [place] [address] PCP - General 12/14/18 documented as of this encounter
--- OUTSIDE RECORDS SUMMARY | 2024-06-04 14:54 | XMS_ITS | Encounter Summary ---
Author Organization [facility] Address [facility] [place] [address] Care Team Providers Care New Car Salesperson Name Role Phone Dom Kennedy MD Primary Care Provider [phone] Encounter Details Date Type Department Care Team (Late st Contact Info) Description 05/01/2020 Ancillary Procedure Radiology Library at [facility] [place] [place] [phone] Estrella Hickman MD [facility] [place] [address] Social History Tobacco Use Types Packs/Day Years [...] & Pelvis (05/01/2020 12:00 AM EDT) Narrative [facility] - 05/14/2020 9:49 PM EDT This exam is auto-finalizing. It's purpose is for storage only. Estrella Hickman MD IMG FILM LIBRAR Y ORDERABLES [place], [place] documented in this encounter Visit Diagnoses Not on filedocumented in this encounter Care Teams New Car Salesperson Relationship Specialty Start Date End Date Dom Kennedy MD PCP - General 12/28/16 documented as of this encounter
--- OUTSIDE RECORDS SUMMARY | 2024-06-04 14:54 | XMS_ITS | Encounter Summary ---
Author Organization [facility] Address [address] [place] [address] Care Team Providers Care Drafter Apprentice Name Role Phone Unknown, Provider Primary Care Provider [phone] Encounter Details Date Type Department Care Team (Late st Contact Info) Description 06/15/2013 Results Only [facility] [phone] Destiny Caldwell, DO [address] [place] [address] Social History Tobacco Use Types [...] ? OPAL JALLOH ? Accession #: ? [id number] ? : ? 1960 (Age: 52) ??M [...] Caldwell DO PATHOLOGY ORDERABLES Performing Organization Address City/State/[facility] Co de Phone Number SARAH JOHNSON [address] [place] [address] documented in this encounter Visit Diagnoses Not on filedocumented in this encounter Care Teams Drafter Apprentice Relationship Specialty Start Date End Date Unknown, Provider, PCP - General 06/15/13 12/13/18 documented as of this encounter
--- OUTSIDE RECORDS SUMMARY | 2024-06-04 14:54 | XMS_ITS | Encounter Summary ---
Author Organization [facility] [place] [address] Care Team Providers Care Wine Fermenter Name Role Phone Ralph Ellison MD Primary Care Provider [phone] Reason for Referral * Diagnostic Test (Routine) - Closed Specialty Diagnoses / Procedures Referred By Contac t Referred To Contact Diagnoses Chest discomfort SOB (shortness of breath) Atypical chest pain Procedures Echocardiogram Stress (Treadmill) Adolfo Antonio MD [facility] [place] [address] [facility] [place] [address] Referral ID Status Reason Start Date Expiration Date V isits Requested Visits Authorized [id number] Closed Specialty Service Requested 09/26/2015 11/25/2015 1 1 Reason for Visit * Diagnostic Test (Routine) - Closed Specialty Diagnoses / Procedures Referred By Contac t Referred To Contact Diagnoses Chest discomfort SOB (shortness of breath) Atypical chest pain Procedures Echocardiogram Stress (Treadmill) Adolfo Antonio MD [facility] [place] [place] [address] [facility] [place] [address] Referral ID Status Reason Start Date Expiration Date V isits Requested Visits Authorized [id number] Closed Specialty Service Requested 09/26/2015 11/25/2015 1 1 Encounter Details Date Type Department Care Team (Latest Contact Info) Description 10/30/2015 9:00 AM EDT - 10/30/2015 11:59 PM EDT Hospital Encounter Non-Invasive Cardiology Lab [facility] [place] [address] Adolfo Antonio MD [facility] [place] [address] Chest discomfort; SOB (shortness of breath); Atypical [...] JOSEPH ? (Age): 1960(54y) Med Rec#: ? [id number] ?Sex: ?M ? Site Loc: ? [facility] ?Ht / Wt: ??177(cm)/95.01(k Pt. Loc: ?Echo Lab ?BSA: ?2.12 Study Date: ?? 10/30/2015 ?Pt. Type: Tape: ? Referring: ADOLFO ANTONIO Referring: Adolfo Antonio Reading: Nirmal Arroyo ([id number]) Corporate Job Titles: [employer] Director: Milagros Duke Interpreting Fellow: Gregor Schwarz ??([id number]) Interpreting Fellow: Madan Hu ([id number]) Interpreting Fellow: Albino Rice ([id number]) Diagnosis: *ICD-10-PCS Shortness of breath (R06.02) *ICD-10-PCS Other chest pain (R07.89) CPT Codes: *Stress Echo (16770) *Color Doppler (88779) *Doppler LTD (13553) *ECG Interpretation (62612) *Definity ([id number]) Stage ? BP ?HR ? Rest ?166/80 [...] E-wave Vmax ?0.5 ?m/sec ? MV deceleration [id number] ?msec ? MV A-wave Vmax ?0.6 ?m/sec [...] ?Normal ?Normal ? Mid-Inferoseptal ?Normal ?Normal ? [place]-Septal ? Normal ?Normal ? [place]-Anterior ? Normal ?Normal ? [place]-Lateral ?Normal ?Normal ? [place]-Inferior ? Normal ?Normal ? [place]-Tip ?Normal ?Normal ? This report has been electronically signed by: Nirmal Arroyo M.D. ? 10/30/2015 12:53:17 Images reviewed and interpretation verified [facility] Cardiac Ultrasound Laboratory Procedure Note Nirmal Arroyo MD - 10/30/2015 Procedure: Stress Echocardiogram Patient: CHIARA TORRES(Age): 1960(54y) Med Rec#: [id number] Sex: M Site Loc: [facility] Ht / Wt: 177(cm)/95.01(k Pt. Loc: Echo Lab BSA: 2.12 Study Date: 10/30/2015 Pt. Type: Tape: Referring: ADOLFO ANTONIO Referring: Adolfo Antonio Reading: Nirmal Arroyo ([id number]) Corporate Job Titles: [employer] Director: Milagros Duke Interpreting Fellow: Gregor Schwarz ([id number]) Interpreting Fellow: Madan Hu ([id number]) Interpreting Fellow: Albino Rice ([id number]) Diagnosis: *ICD-10-PCS Shortness of breath (R06.02) *ICD-10-PCS Other chest pain (R07.89) CPT Codes: *Stress Echo (65959) *Color Doppler (15649) *Doppler LTD (78242) *ECG Interpretation (87777) *Definity (73503BC) Stage BP HR Rest 166/80 86 Peak [...] MV E-wave Vmax 0.5 m/sec MV deceleration [id number] msec MV A-wave Vmax 0.6 m/sec MV [...] Normal Mid-Inferior Normal Normal Mid-Inferoseptal Normal Normal [place]-Septal Normal Normal [place]-Anterior Normal Normal [place]-Lateral Normal Normal [place]-Inferior Normal Normal [place]-Tip Normal Normal This report has been electronically [...] mLs documented in this encounter Care Teams Wine Fermenter Relationship Specialty Start Date End Date Ralph Ellison MD [address] [place] [address] PCP - General General Internal Medicine 09/05/1512/13 documented as of this encounter
--- OUTSIDE RECORDS SUMMARY | 2024-06-04 14:54 | XMS_ITS | Encounter Summary ---
Author Organization [facility] Address [address] [place] [address] Care Team Providers Care Airplane Rental Clerk Name Role Phone Dom Kennedy MD Primary Care Provider [phone] Encounter Details Date Type Department Care Team (Late st Contact Info) Description 05/31/2024 Lab Requisition [facility] Pathology & Laboratory Medicine - [address] [phone] Outr Resulting Lab, Provider Social History Tobacco [...] Procedure Name Priority Date/Time Associated Diagnosis Comments VARICELLA ZOSTER VIRUS MOLECULAR DETECTION, PCR Routine 05/31/2024 12:00 EDT HSV (HERPES SIMPLEX VIRUS) MOLECULAR DETECTION, PCR Routine 05/31/2024 12:00 EDT documented in this encounter Results * VARICELLA ZOSTER VIRUS MOLECULAR DETECTION, PCR (05/31/2024 12:00 EDT) VARICELLA ZOSTER VIRUS MOLECULAR DETECTION, PCR Negative Negative 06/01/2024 11:36 EDT [facility] Swab EAR STRUCTURE / Unknown 05/31/2024 12:00 EDT 05/31/2024 22:55 EDT Provider Outr Resulting Lab MICROBIOLOGY - GENERAL ORDERABLES Performing Organization Address City/[facility]/ZIP Co de Phone Number [facility] [address] [place], [place] [phone] * (ABNORMAL) HSV (HERPES SIMPLEX VIRUS) MOLECULAR DETECTION, PCR (05/31/2024 12:00 EDT) Herpes Simplex Virus Molecular Detection 1, PCR Positive(A) Negative 06/01/2024 11:13 EDT [facility] Herpes Simplex Virus Molecular Detection 2, PCR Negative Negative 06/01/2024 11:13 EDT [facility] Swab EAR STRUCTURE / Unknown 05/31/2024 12:00 EDT 05/31/2024 22:55 EDT Provider Outr Resulting Lab MICROBIOLOGY - GENERAL ORDERABLES Performing Organization Address [facility] Co de Phone Number [facility] [address] [place], [place] [address] documented in this encounter Visit Diagnoses Not on filedocumented in this encounter Care Teams Airplane Rental Clerk Relationship Specialty Start Date End Date Dom Kennedy MD [address] [facility] [place] [address] PCP - General 12/14/18 documented as of this encounter
--- OUTSIDE RECORDS SUMMARY | 2024-06-04 14:54 | XMS_ITS | Encounter Summary ---
Author Organization [facility] Address [address] [place] [address] Care Team Providers Care Fabrication Manager Name Role Phone Unknown, Provider Primary Care Provider [phone] Encounter Details Date Type Department Care Team (Late st Contact Info) Description 12/11/2018 Results Only [facility] [phone] Maria Guadalupe Kennedy MD [address] [place] [address] Social History Tobacco Use Types Packs/Day Years [...] ? OPAL JALLOH ? Accession #: ? [id number] ? : ? 1960 (Age: 57) ??M [...] (ASCP) 12/12/2018 4:02 PM End of Report [facility] 12/11/2018 15:4 1 EDT 12/12/2018 15:41 EDT Maria Guadalupe Kennedy MD PATHOLOGY ORDERABLES [facility] [address] [place] [address] documented in this encounter Visit Diagnoses Not on filedocumented in this encounter Care Teams Fabrication Manager Relationship Specialty Start Date End Date Unknown, Provider, PCP - General 06/15/13 12/13/18 documented as of this encounter
--- OUTSIDE RECORDS SUMMARY | 2024-06-04 14:54 | XMS_ITS | Encounter Summary ---
Author Organization [facility] Address [address] [place] [address] Care Team Providers Care Tire Repairman Name Role Phone Unknown, Provider Primary Care Provider Encounter Details Date Type Department Care Team (Latest Contact Info) Description 12/11/2018 14:55 EDT - 12/11/2018 23:59 EDT Hospital Encounter [address] [address] Unknown, Provider, Discharge Disposition: Home or Self Care Social History Tobacco Use Types Packs/Day Years Used Date Smoking Tobacco: Never Assessed Sex and Gender Information Value Date Recorded Sex Assigned at Not on file Gender Identity Not on file Sexual Orientation Not on file documented as of this encounter Discharge Disposition Disposition Code Departure Means Destination Home or Self Residential documented in this encounter Plan of Treatment Not on file documented as of this encounter Visit Diagnoses Not on filedocumented in this encounter Care Teams Tire Repairman Relationship Specialty Start Date End Date Unknown, Provider, PCP - General 06/15/13 12/13/18 documented as of this encounter
--- OUTSIDE RECORDS SUMMARY | 2024-06-04 14:54 | XMS_ITS | Encounter Summary ---
Author Organization [facility] Address [address] [place] [address] Care Team Providers Care Frame Assembler Name Role Phone Unknown, Provider Primary Care Provider [phone] Encounter Details Date Type Department Care Team (Latest Contact Info) Description 07/12/2014 15:01 EST - 07/12/2014 23:59 EST Hospital Encounter [address] [address] Unknown, Provider, Discharge Disposition: Home or Self Care Social History Tobacco Use Types Packs/Day Years Used Date Smoking Tobacco: Never Assessed Sex and Gender Information Value Date Recorded Sex Assigned at Not on file Gender Identity Not on file Sexual Orientation Not on file documented as of this encounter Discharge Disposition Disposition Code Departure Means Destination Home or Self Alf documented in this encounter Plan of Treatment Not on file documented as of this encounter Visit Diagnoses Not on filedocumented in this encounter Care Teams Frame Assembler Relationship Specialty Start Date End Date Unknown, Provider, PCP - General 06/15/13 12/13/18 documented as of this encounter
--- OUTSIDE RECORDS SUMMARY | 2024-06-04 14:54 | XMS_ITS | Encounter Summary ---
Author Organization [facility] [place] [address] Care Team Providers Care Church Supervisor Name Role Phone Dom Kennedy MD Primary Care Provider Reason for Visit * Reason Comments Medication Refill Encounter Details Date Type Department Care Team (Late st Contact Info) Description 12/20/2021 [place] [address] Td Blanco MD [facility] [place] [address] Type 2 diabetes mellitus with hyperglycemia, with [...] insulin documented in this encounter Care Teams Church Supervisor Relationship Specialty Start Date End Date Dom Kennedy MD PCP - General 12/28/16 documented as of this encounter
--- OUTSIDE RECORDS SUMMARY | 2024-06-04 14:54 | XMS_ITS | Encounter Summary ---
Author Organization [facility] [place] [address] Care Team Providers Care Lead Programmer Name Role Phone Dom Kennedy MD Primary Care Provider [phone] Encounter Details Date Type Department Care Team (Late st Contact Info) Description 09/02/2020 Telephone Urology at [facility] [place] [phone] Ana Maria Medina LNA Social History Tobacco [...] on filedocumented in this encounter Care Teams Lead Programmer Relationship Specialty Start Date End Date Dom Kennedy MD PCP - General 12/28/16 documented as of this encounter
--- OUTSIDE RECORDS SUMMARY | 2024-06-04 14:54 | XMS_ITS | Encounter Summary ---
Author Organization [facility] [place] [address] Care Team Providers Care Electric Power Machine Operator Name Role Phone Dom Kennedy MD Primary Care Provider [phone] Reason for Visit * Reason Comments Follow-up Encounter Details Date Type Department Care Team ([facility] st Contact Info) Description 03/17/2020 11:30 AM EDT Office Visit General Surgery at [address] [phone] Dom Richardson MD [address] [place] [address] [place] [address] Encounter for adjustment of gastric [...] band placed 12/15/[address]Donald Ahuja at [facility]. Preoperative weight: #250 Last adjustment: 12/05/[address] Keo Cardoso at [facility]. 0.25 mL's removed for yellow zone symptomatology. [...] PSH/Diagnostic History: Last colonoscopy on file at [facility] July 2017 colonoscopy with polyp removals. Seen at [facility] August 2023 lumbar blocks relieve back pain. ?? Nuclear stress test [facility] in 2014 reportedly negative ?? Treadmill stress test [place] [...] He is and lives with his in [place], [place]. 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 He has never smoked. He drinks a [...] status documented in this encounter Care Teams Electric Power Machine Operator Relationship Specialty Start Date End Date Dom Kennedy MD PCP - General 12/28/16 documented as of this encounter
--- OUTSIDE RECORDS SUMMARY | 2024-06-04 14:54 | XMS_ITS | Clinical Summary ---
Author Organization [facility] Address [address] [place] [address] Care Team Providers Care Keno Dealer Name Role Phone Dom Kennedy MD Primary Care Provider Encounters Date Type Department Care Team Description 05/31/2024 Lab Requisition [facility] Pathology & Laboratory Medicine - [address] [address] Outr Resulting Lab, Provider from Last 3 Months Social History Tobacco Use Types Packs/Day Years [...] - 1-dose 60+ series) 2019 COVID-19 Vaccine ( season) 2024 Procedures Procedure Name Priority Date/Time Associated Diagnosis Comments VARICELLA ZOSTER VIRUS MOLECULAR DETECTION, PCR Routine 05/31/2024 12:00 EDT HSV (HERPES SIMPLEX VIRUS) MOLECULAR DETECTION, PCR Routine 05/31/2024 12:00 EDT from Last 3 Months Results * VARICELLA ZOSTER VIRUS MOLECULAR DETECTION, PCR (05/31/2024 12:00 EDT) VARICELLA ZOSTER VIRUS MOLECULAR DETECTION, PCR Negative Negative 06/01/2024 11:36 EDT [facility] Swab EAR STRUCTURE / Unknown 05/31/2024 12:00 EDT 05/31/2024 22:55 EDT Provider Outr Resulting Lab MICROBIOLOGY - GENERAL ORDERABLES Performing Organization Address City/[facility]/ZIP Co de Phone Number [facility] [address] [place] [address] * (ABNORMAL) HSV (HERPES SIMPLEX VIRUS) MOLECULAR DETECTION, PCR (05/31/2024 12:00 EDT) Herpes Simplex Virus Molecular Detection 1, PCR Positive(A) Negative 06/01/2024 11:13 EDT [facility] Herpes Simplex Virus Molecular Detection 2, PCR Negative Negative 06/01/2024 11:13 EDT [facility] Swab EAR STRUCTURE / Unknown 05/31/2024 12:00 EDT 05/31/2024 22:55 EDT Provider Outr Resulting Lab MICROBIOLOGY - GENERAL ORDERABLES Performing Organization Address [facility] de Phone Number [facility] [address] [place] [address] from Last 3 Months Care Teams Keno Dealer Relationship Specialty Start Date [place] [address] PCP - General 12/14/18
--- OUTSIDE RECORDS SUMMARY | 2024-06-04 14:54 | XMS_ITS | Encounter Summary ---
Author Organization [facility] Address [facility] [address] Care Team Providers Care Safety Belt Installer Name Role Phone Dom Kennedy MD Primary Care Provider [phone] Encounter Details Date Type Department Care Team (Latest Contact Info) Description 07/22/2020 10:26 PM EST - 07/22/2020 11:59 PM EST Hospital [place] [address] Discharge Disposition: Home Social History Tobacco Use [...] EST) SARS-CoV-2 RNA Not Detected Not Detected [facility] Comment: This result should be [...] on the instructions for use provided by [employer] and additional guidance provided by CDC and FDA. Testing is performed in the Clinical Genomics and [facility] Laboratory within the Department of Pathology and Laboratory Medicine at [facility], certified under the Clinical Laboratory Improvement Amendments [...] fact sheets at the following FDA website: https://www.fda.gov/medical-devices/shfibzruxlc-gkjmepq-7495-vxvsa-06-minrcesfw- use-a mtczluxaxddgy-tguyrhf-erccjgb/pgmdz-cgabossuzzp-fxvd SARS-CoV-2 RNA Source Nasal [facility] Specimen from nose (specimen) Other / Unknown 07/22/2020 4:35 PM EST 07/22/2020 11:24 PM EST Narrative Resulting Agency Comment Spec In Lab Chantel Mcgee MD MOLECULAR ORDERABLES [facility] [place] [address] documented in this encounter Visit Diagnoses Not on filedocumented in this encounter Care Teams Safety Belt Installer Relationship Specialty Start Date End Date Dom Kennedy MD PCP - General 12/28/16 documented as of this encounter
--- OUTSIDE RECORDS SUMMARY | 2024-06-04 14:54 | XMS_ITS | Encounter Summary ---
Author Organization [facility] Address [address] [place] [address] Care Team Providers Care Security Associate Name Role Phone Dom Kennedy MD Primary Care Provider [phone] Encounter Details Date Type Department Care Team (Late st Contact Info) Description 01/14/2021 Lab Requisition [facility] Pathology & Laboratory Medicine - [address] [phone] Outr Resulting Lab, Provider Social History Tobacco [...] 0.0 - 4.5 ng/mL 01/14/2021 17:30 EDT [facility] Blood VENOUS BLOOD / Unknown 01/14/2021 9:01 EDT 01/14/2021 15:44 EDT Narrative [facility] - 01/14/2021 17:30 EDT NOTE: Serum PSA concentration should not be interpreted as absolute evidence for the presence or absence of malignant disease. Assayed on Siemens ADVIA Centaur XPT using chemiluminescent technology.??Values obtained by using different assay methods cannot be used interchangeably. Provider Outr Resulting Lab CHEMISTRY & BLOOD GAS ORDERABLES [facility] [address] [place] [address] documented in this encounter Visit Diagnoses Not on filedocumented in this encounter Care Teams Security Associate Relationship Specialty Start Date End Date Dom Kennedy MD [facility] [place] [address] PCP - General 12/14/18 documented as of this encounter
--- OUTSIDE RECORDS SUMMARY | 2024-06-04 14:54 | XMS_ITS | Referral Summary ---
Author Organization [facility] Address [address] [place] [address] Care Team Providers Care Telephone Order Clerk Name Role Phone Dom Kennedy MD Primary Care Provider [phone] Encounters Date Type Department Care Team Description 05/31/[address] [facility] Pathology & Laboratory Medicine - [address] [address] Outr Resulting Lab, Provider from Last 3 [...] file Plan of Treatment Not on file Procedures Procedure Name Priority Date/Time Associated Diagnosis Comments VARICELLA ZOSTER VIRUS MOLECULAR DETECTION, PCR Routine 05/31/2024 12:00 EDT HSV (HERPES SIMPLEX VIRUS) MOLECULAR DETECTION, PCR Routine 05/31/2024 12:00 EDT from Last 3 Months Results * VARICELLA ZOSTER VIRUS MOLECULAR DETECTION, PCR (05/31/2024 12:00 EDT) VARICELLA ZOSTER VIRUS MOLECULAR DETECTION, PCR Negative Negative 06/01/2024 11:36 EDT [facility] Swab EAR STRUCTURE / Unknown 05/31/2024 12:00 EDT 05/31/2024 22:55 EDT Provider Outr Resulting Lab MICROBIOLOGY - GENERAL ORDERABLES [facility] [address] [place] [address] * (ABNORMAL) HSV (HERPES SIMPLEX VIRUS) MOLECULAR DETECTION, PCR (05/31/2024 12:00 EDT) Herpes Simplex Virus Molecular Detection 1, PCR Positive(A) Negative 06/01/2024 11:13 EDT [facility] Herpes Simplex Virus Molecular Detection 2, PCR Negative Negative 06/01/2024 11:13 EDT [facility] Swab EAR STRUCTURE / Unknown 05/31/2024 12:00 EDT 05/31/2024 22:55 EDT Provider Outr Resulting Lab MICROBIOLOGY - GENERAL ORDERABLES Performing Organization Address City/State/[facility] Co de Phone Number [facility] [address] [place] [address] from Last 3 Months Care Teams Telephone Order Clerk Relationship Specialty Start Date End Date Dom Kennedy MD [facility] [place] [address] PCP - General 12/14/18
--- OUTSIDE RECORDS SUMMARY | 2024-06-04 14:54 | XMS_ITS | Encounter Summary ---
Author Organization [facility] Address [address] [place] [address] Care Team Providers Care Tip Bander Name Role Phone Dmo Kennedy MD Primary Care Provider [phone] Encounter Details Date Type Department Care Team (Late st Contact Info) Description 02/08/2020 Lab Requisition [facility] Pathology & Laboratory Medicine - [address] [phone] Outr Resulting Lab, Provider Social History Tobacco [...] 0.0 - 4.5 ng/mL 02/11/2020 9:59 EDT [facility] Blood VENOUS BLOOD / Unknown 02/08/2020 9:15 EDT 02/08/2020 20:44 EDT Narrative [facility] - 02/11/2020 9:59 EDT NOTE: Serum PSA concentration should not be interpreted as absolute evidence for the presence or absence of malignant disease. Assayed on Siemens [employer] Centaur XPT using chemiluminescent technology.??Values obtained by using different assay methods cannot be used interchangeably. Provider Outr Resulting Lab CHEMISTRY & BLOOD GAS ORDERABLES [facility] [address] [place] [address] documented in this encounter Visit Diagnoses Not on filedocumented in this encounter Care Teams Tip Bander Relationship Specialty Start Date End Date Dom Kennedy MD [address] [place] [address] PCP - General 12/14/18 documented as of this encounter
--- OUTSIDE RECORDS SUMMARY | 2024-06-04 14:54 | XMS_ITS | Clinical Summary ---
Author Organization [facility] Address [facility] [place] [address] Care Team Providers Care Control Technician Name Role Phone Dom Kennedy MD Primary Care Provider [phone] Allergies Active Allergy Reactions Criticality Noted Date [...] glucose scanning reader (FreeStyle Arleen 14 Day [place]) MiscIndications:Typ e 2 diabetes mellitus with hyperglycemia, with long-term current use of insulin 1 Device by [facility].(Non-Drug; Combo Route) route as needed. 1 each [...] 09/11/2015 Overview (09/11/2015): ?? Nuclear stress test [facility] [place] [facility] [...] Recently Relevant to Health Maintenance Care Teams Control Technician Relationship Specialty Start Date End Date Dom Kennedy MD PCP - General 12/28/16
--- OUTSIDE RECORDS SUMMARY | 2024-06-04 14:54 | XMS_ITS | Encounter Summary ---
[place] [address] Care Team Providers Care Deposition Operator Name Role Phone Dom Kennedy MD Primary Care Provider [phone] Encounter Details Date Type Department Care Team (Late st Contact Info) Description 12/05/2015 Abstract [facility] Information Services [address] [place] [phone] Provider, His MD [place] Social History Tobacco [...] 72 12/05/2015 10:00 AM EDT Sourced from [place] Conversion Temperature - - Respiratory Rate - [...] on filedocumented in this encounter Care Teams Deposition Operator Relationship Specialty Start Date End Date Dom Kennedy MD PCP - General 12/28/16 documented as of this encounter
--- OUTSIDE RECORDS SUMMARY | 2024-06-04 14:54 | XMS_ITS | Encounter Summary ---
Author Organization [facility] Address [facility] [place] [address] Care Team Providers Care Book Coverer Name Role Phone Dom Kennedy MD Primary Care Provider [phone] Reason for Visit * Reason Comments Medication Refill Encounter Details Date Type Department Care Team (Late st Contact Info) Description 02/10/2022 [place] [address] Td Blanco MD [facility] [place] [address] Type 2 diabetes mellitus with hyperglycemia, with [...] insulin documented in this encounter Care Teams Book Coverer Relationship Specialty Start Date End Date Dom Kennedy MD PCP - General 12/28/16 documented as of this encounter
--- OUTSIDE RECORDS SUMMARY | 2024-06-04 14:54 | XMS_ITS | Encounter Summary ---
[place] [address] Care Team Providers Care Firmware Developer Name Role Phone Ralph Ellison MD Primary Care Provider [phone] Encounter Details Date Type Department Care Team (Late st Contact Info) Description 12/05/2015 10:00 AM EDT Office Visit General Surgery [place] [address] [place] [phone] Keo Cardoso MD [address] [place] [address] Social History Tobacco Use Types Packs/Day Years [...] on filedocumented in this encounter Care Teams Firmware Developer Relationship Specialty Start Date End Date Ralph Ellison MD [facility] [address] [facility] [place] [address] PCP - General General Internal Medicine 09/05/1512/13 documented as of this encounter
--- OUTSIDE RECORDS SUMMARY | 2024-06-04 14:54 | XMS_ITS | Encounter Summary ---
[facility] Organization [facility] Address [facility] [place] [address] Care Team Providers Care Operating Systems Programmer Name Role Phone Dom Kennedy MD Primary Care Provider [phone] Encounter Details Date Type Department Care Team (Late st Contact Info) Description 05/28/2020 11:00 AM EDT Office Visit Urology at [facility] [place] [phone] Estrella Hickman MD [facility] [place] [address] Lower urinary tract symptoms (LUTS); Gross hematuria [...] and cola. You do not need to [id number] ounces of water today. Urination: You will likely have a small amount of blood in your urine for the next several days. This is normal; however, if you are passing large amounts of blood clots or are unable to void please call our office at [phone] before 5PM or [phone] after hours. Please call if: * you have copious blood in your urine * fevers greater than 101.3 F * you are unable to void The number for questions is [phone] before 5 PM weekdays and [phone] after 5 PM and weekends. Follow-up: With [...] Procedure Name Priority Date/Time Associated Diagnosis Comments NON-VENDOR QUALITY SUPERVISOR FINAL REPORT Routine 05/28/2020 12:31 PM EDT CYTOPATHOLOGY NON-GYNECOLOGICAL Routine 05/28/2020 12:31 PM EDT Gross hematuria CYSTOSCOPY Routine 05/28/2020 11:00 AM EDT Lower urinary tract symptoms (LUTS) documented in this encounter Results * Non-Delinquency Prevention Social Worker Final Report (05/28/2020 12:31 PM EDT) Diagnosis Discussion [id number] ? Location: The signing pathologist has (i) examined the relevant preparation(s) for the specimen(s) and (ii) rendered or confirmed the diagnosis(es). . ? Non-Delinquency Prevention Social Worker Final DIAGNOSIS Atypical Urothelial Cells See discussion. Electronically signed by: ??Cyndi BRASWELL, Miguel Yuan Verified: ??05/30/2020 ?Cytopathologis t Performed at: ??-[facility] Dept. of Pathology, [place], [place] DISCUSSION Urine, voided: Atypical single urothelial cells, some showing degenerative changes, present. Reference: Prosper MENDEZ, ?? Cuong Small ??DFI. The Radha System for Reporting Urinary Cytology. [place]: Soni; 2016. CLINICAL INFORMATION Specimen Source : Urine, voided Pertinent Clinical Data and Significant Therapy: Hematuria Clinical Impression : Gross hematuria Pertinent Radiologic Findings ??: (not provided) Gross Description: Received ??fresh, approximately 65 mL total volume of ?? clear, yellow fluid. Total Preparation: Liquid-Based Prep 1. 05/30/2020 1:[address] [facility] URINE SPECIMEN OBTAINED BY CLEAN CATCH PROCEDURE / Unknown 05/28/2020 12:31 PM EDT 05/28/2020 12:31 PM EDT Estrella Hickman MD PATHOLOGY/CYTOL OGY ORDERABLES Performing Organization Address [facility] Co de Phone Number [facility] [place] [address] * Cytopathology Non-Gynecological (05/28/2020 12:31 PM EDT) AP Specimen 05/28/2020 12:3 1 PM EDT 05/28/2020 12:[address] [facility] - 05/28/2020 12:31 PM EDT Specimen requisition ordered. ??Separate Pathology report to follow Estrella Hickman MD PATHOLOGY/CYTOL OGY ORDERABLES Performing Organization Address [facility] [place] [address] * Cystoscopy - Today (05/28/2020 11:00 AM [...] hematuria documented in this encounter Care Teams Operating Systems Programmer Relationship Specialty Start Date End Date Dom Kennedy MD PCP - General 12/28/16 documented as of this encounter
--- OUTSIDE RECORDS SUMMARY | 2024-06-04 14:54 | XMS_ITS | Encounter Summary ---
Author Organization [facility] [place] [address] Care Team Providers Care Dredge Lever Operator Name Role Phone Dom Kennedy MD Primary Care Provider [phone] Encounter Details Date Type Department Care Team (Late st Contact Info) Description 06/03/2020 Telephone Urology at [facility] [place] [phone] Estrella Hickman MD [facility] UROLOGRashad [place] [id number] Social History Tobacco Use Types Packs/Day Years [...] on filedocumented in this encounter Care Teams Dredge Lever Operator Relationship Specialty Start Date End Date Dom Kennedy MD PCP - General 12/28/16 documented as of this encounter
--- OUTSIDE RECORDS SUMMARY | 2024-06-04 14:54 | XMS_ITS | Encounter Summary ---
Author Organization [facility] Address [address] [place] [address] Care Team Providers Care Small Engine Trainer Name Role Phone Unknown, Provider Primary Care Provider [phone] Encounter Details Date Type Department Care Team (Late st Contact Info) Description 07/08/2014 Results Only [facility] [phone] Nasrin Ferguson, [address] [place] [address] Social History Tobacco Use Types Packs/Day Years [...] ? OPAL JALLOH ? Accession #: ? [id number] ? : ? 1960 (Age: 53) ??M ? Collect Date: ? 07/08/2014 ? Location: ? [facility] ? Receive Date: ? 07/09/2014 ? Provider: NASRIN FERGUSON DO Copy to: URIEL ROSENBERG MD ? Final Pathologic Diagnosis: A. ??SKIN OF CHRISTIANITY, RIGHT, SHAVE BIOPSY:- Seborrheic keratosis. B. ??SKIN OF CHRISTIANITY, LEFT INFERIOR, SHAVE BIOPSY: - Seborrheic keratosis. C. ??SKIN OF CHRISTIANITY, LEFT SUPERIOR, SHAVE BIOPSY: - Seborrheic keratosis. Document reviewed and electronically signed by: BRANDY CAM MD Report ??Date: 07/10/2014 16:39 By the signature above, the attending physician certifies that he/she has personally conducted a gross and/or microscopic examination of the described specimens and rendered or confirmed the above diagnosis. Specimen(s) Received: A. ?Right rastafarian B. ? Left rastafarian (inferior) C. ? Left rastafarian (superior) Clinical History: Hyperpigmented skin lesions; clinical diagnosis code: ??239.2 Gross Description: A. ?Received in formalin labelled with proper patient identification (initials B, R) and 1. right rastafarian is a shave biopsy of an irregular moran granular friable nodule (1.1 x 0.9 x 0.2 cm). ??Trisected and submitted in A1. B. ?Received in formalin labelled with proper patient identification (initials B, R) and 2. left rastafarian inferior is a shave biopsy of an irregular moran-cui granular papule (0.5 x 0.4 x 0.1 cm). Bisected and submitted in B1. C. ?Received in formalin labelled with proper patient identification (initials B, R) and 3. left rastafarian superior is a shave biopsy of moran-white [...] Pecktte 07/10/2014 08:28 AM End of Report [facility] 07/08/2014 17:3 3 EST 07/09/2014 17:33 EST Nasrin Ferguson DO PATHOLOGY ORDER [facility] [address] [place] [address] documented in this encounter Visit Diagnoses Not on filedocumented in this encounter Care Teams Small Engine Trainer Relationship Specialty Start Date End Date Unknown, Provider, PCP - General 06/15/13 12/13/18 documented as of this encounter
--- OUTSIDE RECORDS SUMMARY | 2024-06-04 14:54 | XMS_ITS | Encounter Summary ---
Author Organization Health system Address [address] [place] [address] Care Team Providers Care Motor Equipment Lieutenant Name Role Phone Unknown, Provider Primary Care Provider Encounter Details Date Type Department Care Team (Latest Contact Info) Description 06/15/2013 8:17 EDT - 06/15/2013 23:59 EDT Hospital Encounter [address] [address] Unknown, Provider, Discharge Disposition: Home or Self Care Social History Tobacco Use Types Packs/Day Years Used Date Smoking Tobacco: Never Assessed Sex and Gender Information Value Date Recorded Sex Assigned at Not on file Gender Identity Not on file Sexual Orientation Not on file documented as of this encounter Discharge Disposition Disposition Code Departure Means Destination Home or Self Skilled Nursing documented in this encounter Plan of Treatment Not on file documented as of this encounter Visit Diagnoses Not on filedocumented in this encounter Care Teams Motor Equipment Lieutenant Relationship Specialty Start Date End Date Unknown, Provider, PCP - General 06/15/13 12/13/18 documented as of this encounter
--- OUTSIDE RECORDS SUMMARY | 2024-06-04 14:54 | XMS_ITS | Encounter Summary ---
Author Organization [facility] [place] [address] Care Team Providers Care Organic Gardening Teacher Name Role Phone Dom Kennedy MD Primary Care Provider [phone] Reason for Visit * Reason Comments Medication Refill Encounter Details Date Type Department Care Team (Late st Contact Info) Description 02/25/2023 Ref[place] [address] Td Blanco MD [facility] [place] [address] Type 2 diabetes mellitus with hyperglycemia, with [...] insulin documented in this encounter Care Teams Organic Gardening Teacher Relationship Specialty Start Date End Date Dom Kennedy MD PCP - General 12/28/16 documented as of this encounter
--- OUTSIDE RECORDS SUMMARY | 2024-06-04 14:54 | XMS_ITS | Encounter Summary ---
[place] [address] Care Team Providers Care Agricultural Economist Name Role Phone Dom Kennedy MD Primary Care Provider [phone] Reason for Referral * Consultation (Routine) - Authorized Specialty Diagnoses / Procedures Referred By Portia stuart Referred To Contact Urology Diagnoses Benign prostatic hyperplasia with lower urinary tract symptoms, symptom details unspecified Kade Higuera PA [address] [place] [address] [facility] [place] [address] Referral ID Status Reason Start Date Expiration Date Visits Requested Visits Authorized [id number] Authorized Consult, Test & Treat PCP Updated and/or Approved 01/16/2024 01/15/2025 6 6 Encounter Details Date Type Department Care Team (Late st Contact Info) Description 01/16/2024 Transcribe Orders eDH Incoming Referrals [phone] Kade Higuera PA [address] [place] [address] Benign prostatic hyperplasia with lower [...] unspecified documented in this encounter Care Teams Agricultural Economist Relationship Specialty Start Date End Date Dom Kennedy MD PCP - General 12/28/16 documented as of this encounter
--- OUTSIDE RECORDS SUMMARY | 2024-06-04 14:54 | XMS_ITS | Encounter Summary ---
Author Organization [facility] Address [facility] [place] [address] Care Team Providers Care Benefits Consulting Analyst Name Role Phone Dom Kennedy MD Primary Care Provider Reason for Visit * Consultation (Routine) - Closed Specialty Diagnoses / Procedures Referred By Contsue t Referred To Contact Endocrinology Diagnoses Type 2 diabetes mellitus without complications Essential (primary) hypertension Hyperlipidemia, unspecified Dom Kennedy MD [address] [place] [address] [place] [address] Td Blanco MD [facility] [place] [address] Referral ID Status Reason Start Date Expiration Date Visits Re quested Visits Authorized [id number] Closed 12/25/2020 12/25/2021 1 1 Encounter Details Date Type Department Care Team (Latest Contact Info) Description 01/29/2021 10:00 AM EDT TH Visit (TeleHealth) [place] [address] Td Blanco MD [facility] [place] [address] Type 2 diabetes mellitus with hyperglycemia, with [...] treatment Last Eye Appointment: Aug 2020, 1x/year [facility]. Early signs of cataracts. 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
--- OUTSIDE RECORDS SUMMARY | 2024-06-04 14:54 | XMS_ITS | Encounter Summary ---
Author Organization [facility] Address [address] [place] [address] Care Team Providers Care Internet Sales Representative Name Role Phone Dom Kennedy MD Primary Care Provider Encounter Details Date Type Department Care Team (Late st Contact Info) Description 03/18/2023 Lab Requisition [facility] Pathology & Laboratory Medicine - [address] [address] Dom Kennedy MD [address] [place] [address] [place], [place] [id number] Encounter for other general examination Social History [...] applicable. 03/21/2023 10:35 EDT [facility] Final Diagnosis A. SKIN OF GNOSTICIST, LEFT, SHAVE BIOPSY: - Seborrheic keratosis, irritated and inflamed. 03/21/2023 10:35 [facility] Attestation By the signature below, the attending physician certifies that they have 1) personally conducted a gross and/or microscopic examination of the described specimen(s), and/or personally interpreted the results of laboratory testing of the described specimen(s), and 2) personally rendered or confirmed the above diagnosis. 03/21/2023 10:35 [facility] at [address] Microscopic Description [...] vacuolar change and keratinocyte necrosis. 03/21/2023 10:35 [facility] Clinical History Fleshy plaque left shinto, growing SK vs squamous 03/21/2023 10:35 [facility] Gross Description A. Received in formalin labelled with proper patient identification (initials B, R) and left shinto is a 0.8 x 0.4 by less than 0.1 cm white-moran, mottled, focally papular skin shave which is inked blue, bisected and is submitted in its entirety in A1. FITO CADE(ASCP) 03/18/2023 15:12 03/21/2023 10:35 T [facility] Performing Lab [facility] 03/21/2023 10:35 [facility] Scanned Images 03/21/2023 10:35 [facility] Tissue TISSUE SPECIMEN FROM SKIN / Unknown 03/17/2023 10:00 EDT 03/18/2023 10:03 EDT Dom Kennedy MD PATHOLOGY ORDERABLES [facility] [address] [place] [address] documented in this encounter Visit Diagnoses Diagnosis Encounter for other general examination documented in this encounter Care Teams Internet Sales Representative Relationship Specialty Start Date End Date Dom [place] [address] PCP - General 12/14/18 documented as of this encounter
--- OUTSIDE RECORDS SUMMARY | 2024-06-04 14:54 | XMS_ITS | Encounter Summary ---
Author Organization [facility] Address [address] [place] [address] Care Team Providers Care Building Coordinator Name Role Phone Dom Kennedy MD Primary Care Provider [phone] Encounter Details Date Type Department Care Team (Late st Contact Info) Description 10/08/2022 Lab Requisition [facility] Pathology & Laboratory Medicine - [address] [id number] Outr Resulting Lab, Provider Social History Tobacco [...] Outr Resulting Lab MICROBIOLOGY - GENERAL ORDERABLES [facility] [address] [place] [address] * COVID-19 TESTING (10/07/2022 12:43 EST) COVID-19 rt-PCR Result Negative Negative 10/09/2022 12:09 EST [facility] Comment: This test has [...] history, and epidemiological information. Performed on the 20:20 Mobileher Fusion instrument Performing Lab [place] [facility] 10/09/2022 12:09 EST [facility] Swab 10/07/2022 12:4 3 EST 10/08/2022 18:40 EST Provider Outr Resulting Lab MICROBIOLOGY - GENERAL ORDERABLES [facility] [address] [place] [address] documented in this encounter Visit Diagnoses Not on filedocumented in this encounter Care Teams Building Coordinator Relationship Specialty Start Date End Date Dom Kennedy [place] [place] [address] PCP - General 12/14/18 documented as of this encounter
--- OUTSIDE RECORDS SUMMARY | 2024-06-04 14:54 | XMS_ITS | Encounter Summary ---
[place] [address] Care Team Providers Care Materials Planning Manager Name Role Phone Dom Kennedy MD Primary Care Provider [phone] Reason for Referral * Consultation (Routine) - Authorized Specialty Diagnoses / Procedures Referred By Portia stuart Referred To Contact Urology Diagnoses Lower urinary tract symptoms (LUTS) Dom Kennedy MD [address] [place] [address] [place] [address] [facility] [place] [address] Referral ID Status Reason Start Date Expiration Date Visits Requested Visits Authorized [id number] Authorized Consult, Test & Treat PCP Updated and/or Approved 3 06/27/2024 6 6 Encounter Details Date Type Department Care Team (Late st Contact Info) Description 07/05/2023 Transcribe Orders eD Incoming Referrals [phone] Dom Kennedy MD [address] [place] [address] [address] [place], [place] [id number] Lower urinary tract symptoms (LUTS) Social History [...] system documented in this encounter Care Teams Materials Planning Manager Relationship Specialty Start Date End Date Dom Kennedy MD PCP - General 12/28/16 documented as of this encounter
--- OUTSIDE RECORDS SUMMARY | 2024-06-04 14:54 | XMS_ITS | Encounter Summary ---
Author Organization [facility] Address [facility] [place] [address] Care Team Providers Care Numerical Control Machine Tool Operator Name Role Phone Dom Kennedy MD Primary Care Provider Reason for Visit * Consultation (Routine) - Closed Specialty Diagnoses / Procedures Referred By Portia stuart Referred To Contact Urology Diagnoses GROSS HEMATURIA Dom Kennedy MD [address] [place] [address] [place] [address] [facility] [place] [address] Referral ID Status Reason Start Date Expiration Date Visits Re quested Visits Authorized [id number] Closed 05/13/2020 05/13/2021 1 1 Encounter Details Date Type Department Care Team (Late st Contact Info) Description 05/28/2020 8:00 AM EDT [place] [phone] Estrella Hickman MD [facility] [address] Gross hematuria Social History Tobacco Use Types [...] Referred him to Nadege Gaona NP at [place] [facility]. He had the following tests and [...] HEALTH: good REVIEW OF SYSTEMS: Negative. -- GARAGE HELPER - No headaches or loss of consciousness [...] hematuria documented in this encounter Care Teams Numerical Control Machine Tool Operator Relationship Specialty Start Date End Date Dom Kennedy MD PCP - General 12/28/16 documented as of this encounter
--- OUTSIDE RECORDS SUMMARY | 2024-06-04 14:55 | XMS_ITS | Encounter Summary ---
Author Organization [facility] [place] [address] Care Team Providers Care Plate Stacker Name Role Phone Keo Orozco BACK END WEB DEVELOPER Primary Care Provider Encounter Details Date Type Department Care Team (Late st Contact Info) Description 03/18/2011 2:30 PM EDT Office Visit [address] [address] Social History Tobacco Use Types [...] on filedocumented in this encounter Care Teams Plate Stacker Relationship Specialty Start Date End Date Keo Orozco APRN [address] [place] [address] PCP - General 09/30/10 09/29/11 documented as of this encounter
--- OUTSIDE RECORDS SUMMARY | 2024-06-04 14:55 | XMS_ITS | Encounter Summary ---
[place] [address] Care Team Providers Care Product Architect Name Role Phone Keo Orozco APRN Primary Care Provider [phone] Encounter Details Date Type Department Care Team ([facility] st Contact Info) Description 06/21/2011 2:00 PM EST Follow-Up [facility] [address] [place] [address] Ramirez Ahuja MD [address] [place] [address] Social History Tobacco Use Types [...] on filedocumented in this encounter Care Teams Product Architect Relationship Specialty Start Date End Date Keo Orozco APRN [address] [place] [address] PCP - General 09/30/10 09/29/11 documented as of this encounter
--- OUTSIDE RECORDS SUMMARY | 2024-06-04 14:55 | XMS_ITS | Encounter Summary ---
[place] [address] Care Team Providers Care Public Works Director Name Role Phone Keo Orozco APRN Primary Care Provider [phone] Encounter Details Date Type Department Care Team ([facility] st Contact Info) Description 02/11/2011 9:15 AM EDT Follow-Up [facility] [address] [place] [address] Ramirez Ahuja MD [address] [place] [address] Social History Tobacco Use Types [...] filedocumented in this encounter Care Teams Public Works Director Relationship Specialty Start Date End Date Keo Orozco APRN [address] [place] [address] PCP - General 09/30/10 09/29/11 documented as of this encounter
--- OUTSIDE RECORDS SUMMARY | 2024-06-04 14:55 | XMS_ITS | Encounter Summary ---
Author Organization [facility] [place] [address] Care Team Providers Care Motion Picture Projectionist Apprentice Name Role Phone Michael Mims MD Primary Care Provider [phone] Encounter Details Date Type Department Care Team (Late st Contact Info) Description 01/04/2012 12:00 PM EDT Laboratory Appointment [address] [phone] Social History Tobacco Use Types Packs/Day Years Used Date Smoking Tobacco: Never Assessed Sex and Gender Information Value Date Recorded Sex Assigned at Not on file Gender Identity Not on file Sexual Orientation Not on file documented as of this encounter Plan of Treatment Not on file documented as of this encounter Visit Diagnoses Not on filedocumented in this encounter Care Teams Motion Picture Projectionist Apprentice Relationship Specialty Start Date End Date Michael Mims MD [address] [place] [address] PCP - General 10/11/11 03/21/14 documented as of this encounter
--- OUTSIDE RECORDS SUMMARY | 2024-06-04 14:55 | XMS_ITS | Encounter Summary ---
[place] [address] Care Team Providers Care Shot Hole Shooter Name Role Phone Keo Orozco APRN Primary Care Provider Encounter Details Date Type Department Care Team ([facility] st Contact Info) Description 03/19/2011 10:30 AM EDT Follow-Up [facility] [address] [place] [address] Ramirez Ahuja MD [address] [place], [place] [phone] Social History Tobacco Use Types Packs/Day Years Used Date Smoking Tobacco: Never Assessed Sex and Gender Information Value Date Recorded Sex Assigned at Not on file Gender Identity Not on file Sexual Orientation Not on file documented as of this encounter Plan of Treatment Not on file documented as of this encounter Visit Diagnoses Not on filedocumented in this encounter Care Teams Shot Hole Shooter Relationship Specialty Start Date End Date Keo Orozco APRN [address] [place] [address] PCP - General 09/30/10 09/29/11 documented as of this encounter
--- OUTSIDE RECORDS SUMMARY | 2024-06-04 14:55 | XMS_ITS | Encounter Summary ---
[place] [address] Care Team Providers Care Pegger Name Role Phone Dom Kennedy MD Primary Care Provider [phone] Encounter Details Date Type Department Care Team (Late st Contact Info) Description 03/22/2014 Abstract [facility] Information Services [address] [place] [phone] Provider, His [place] Social History Tobacco [...] oz) 03/22/2014 1:00 PM EDT Sourced from [place] Conversion Height 175.3 cm (5' 9) 03/22/2014 1:00 PM EDT Sourced from [place] Conversion Body Mass Index 30.78 03/22/2014 1:00 PM EDT documented in this encounter Plan of Treatment Not on file documented as of this encounter Visit Diagnoses Not on filedocumented in this encounter Care Teams Pegger Relationship Specialty Start Date End Date Dom Kennedy MD PCP - General 12/28/16 documented as of this encounter
--- OUTSIDE RECORDS SUMMARY | 2024-06-04 14:55 | XMS_ITS | Encounter Summary ---
[place] [address] Care Team Providers Care Chuck Tender Name Role Phone Michael Mims MD Primary Care Provider [phone] Encounter Details Date Type Department Care Team ([facility] st Contact Info) Description 01/12/2012 11:00 AM EDT Office Visit [facility] [address] [place] [phone] David Holliday, PhD [address] [place] [address] Social History Tobacco Use Types Packs/Day Years Used Date Smoking Tobacco: Never Assessed Sex and Gender Information Value Date Recorded Sex Assigned at Not on file Gender Identity Not on file Sexual Orientation Not on file documented as of this encounter Plan of Treatment Not on file documented as of this encounter Visit Diagnoses Not on filedocumented in this encounter Care Teams Chuck Tender Relationship Specialty Start Date End Date Michael Mims MD [address] [place] [address] PCP - General 10/11/11 03/21/14 documented as of this encounter
--- OUTSIDE RECORDS SUMMARY | 2024-06-04 14:55 | XMS_ITS | Encounter Summary ---
[place] [address] Care Team Providers Care Undertaker Helper Name Role Phone Michael Mims MD Primary Care Provider [phone] Encounter Details Date Type Department Care Team ([facility] st Contact Info) Description 12/15/2011 9:00 AM EDT Follow-Up [facility] [address] [place] [phone] Ramirez Ahuja MD [address] [place] [address] Social History Tobacco Use Types Packs/Day Years Used Date Smoking Tobacco: Never Assessed Sex and Gender Information Value Date Recorded Sex Assigned at Not on file Gender Identity Not on file Sexual Orientation Not on file documented as of this encounter Plan of Treatment Not on file documented as of this encounter Visit Diagnoses Not on filedocumented in this encounter Care Teams Undertaker Helper Relationship Specialty Start Date End Date Michael Mims MD [address] [place] [address] PCP - General 10/11/11 03/21/14 documented as of this encounter
--- OUTSIDE RECORDS SUMMARY | 2024-06-04 14:55 | XMS_ITS | Encounter Summary ---
[place] [address] Care Team Providers Care Puddler Helper Name Role Phone Keo Orozco PROCESS OWNER Primary Care Provider [phone] Encounter Details Date Type Department Care Team (Late st Contact Info) Description 02/19/2011 9:45 AM EDT Office Visit [address] [phone] Keo Orozco APRN [address] [place] [address] Social History Tobacco Use Types Packs/Day Years Used Date Smoking Tobacco: Never Assessed Sex and Gender Information Value Date Recorded Sex Assigned at Not on file Gender Identity Not on file Sexual Orientation Not on file documented as of this encounter Plan of Treatment Not on file documented as of this encounter Visit Diagnoses Not on filedocumented in this encounter Care Teams Puddler Helper Relationship Specialty Start Date End Date Keo Orozco APRN [address] [place] [address] PCP - General 09/30/10 09/29/11 documented as of this encounter
--- OUTSIDE RECORDS SUMMARY | 2024-06-04 14:55 | XMS_ITS | Encounter Summary ---
[place] [address] Care Team Providers Care Financial Advisor Name Role Phone Michael Mims MD Primary Care Provider [phone] Encounter Details Date Type Department Care Team ([facility] st Contact Info) Description 12/15/2011 8:00 AM EDT Follow-Up [address] [phone] Janie Saravia PA [address] [place] [address] Social History Tobacco Use Types Packs/Day Years Used Date Smoking Tobacco: Never Assessed Sex and Gender Information Value Date Recorded Sex Assigned at Not on file Gender Identity Not on file Sexual Orientation Not on file documented as of this encounter Plan of Treatment Not on file documented as of this encounter Visit Diagnoses Not on filedocumented in this encounter Care Teams Financial Advisor Relationship Specialty Start Date End Date Michael Mims MD [address] [place] [address] PCP - General 10/11/11 03/21/14 documented as of this encounter
--- OUTSIDE RECORDS SUMMARY | 2024-06-04 14:55 | XMS_ITS | Encounter Summary ---
[place] [address] Care Team Providers Care Director Decision Support Name Role Phone Dom Kennedy MD Primary Care Provider [phone] Encounter Details Date Type Department Care Team (Late st Contact Info) Description 12/10/2011 Abstract [facility] Health Information Services [address] [place] [phone] Provider, His [place] MD Social History Tobacco [...] filedocumented in this encounter Care Teams Director Decision Support Relationship Specialty Start Date End Date Dom Kennedy MD PCP - General 12/28/16 documented as of this encounter
--- OUTSIDE RECORDS SUMMARY | 2024-06-04 14:55 | XMS_ITS | Encounter Summary ---
[place] [address] Care Team Providers Care Scalemaker Name Role Phone Keo Orozco CERTIFIED PEDORTHOTIST Primary Care Provider Encounter Details Date Type Department Care Team ([facility] st Contact Info) Description 03/18/2011 10:30 AM EDT Office Visit [facility] [address] [place] [address] Lorene Luna, RD 590 [facility] [place] [address] Social History Tobacco Use Types Packs/Day Years Used Date Smoking Tobacco: Never Assessed Sex and Gender Information Value Date Recorded Sex Assigned at Not on file Gender Identity Not on file Sexual Orientation Not on file documented as of this encounter Plan of Treatment Not on file documented as of this encounter Visit Diagnoses Not on filedocumented in this encounter Care Teams Scalemaker Relationship Specialty Start Date End Date Keo Orozco APRN [address] [place] [address] PCP - General 09/30/10 09/29/11 documented as of this encounter
--- OUTSIDE RECORDS SUMMARY | 2024-06-04 14:55 | XMS_ITS | Encounter Summary ---
Author [facility] [place] [address] Care Team Providers Care Director Of Veterans Affairs Name Role Phone Dom Kennedy MD Primary Care Provider [phone] Encounter Details Date Type Department Care Team (Late st Contact Info) Description 02/19/2011 [place] [phone] Keo Orozco, [employer] CAPTURE POWER PLANT MANAGER [address] [place], [place] [phone] Social History Tobacco Use Types Packs/Day Years [...] Report EXAMINATION: ??DHK 8600 - KNEE (BILATERAL,3VWS) ?[id number] DIAGNOSIS: ?DHK X-RAY JOINT PAIN-LOWER LEG REASON: [...] Report EXAMINATION: DHK 8600 - KNEE (BILATERAL,3VWS) [id number] DIAGNOSIS: K X-RAY JOINT PAIN-LOWER LEG REASON: [...] Feb 22 2011 9:59P Keo Crisostomo Orozco CARBON CAPTURE POWER PLANT MANAGER IMG DX ORDERABLES documented in this encounter Visit Diagnoses Not on filedocumented in this encounter Care Teams Director Of Veterans Affairs Relationship Specialty Start Date End Date Dom Kennedy MD PCP - General 12/28/16 documented as of this encounter
--- OUTSIDE RECORDS SUMMARY | 2024-06-04 14:55 | XMS_ITS | Encounter Summary ---
[place] [address] Care Team Providers Care Windows Mobile Developer Name Role Phone Michael Mims MD Primary Care Provider [phone] Encounter Details Date Type Department Care Team ([facility] st Contact Info) Description 02/23/2012 11:00 AM EDT Office Visit [facility] [address] [place] [phone] David Holliday, PhD [address] [place] [address] Social History Tobacco Use Types Packs/Day Years Used Date Smoking Tobacco: Never Assessed Sex and Gender Information Value Date Recorded Sex Assigned at Not on file Gender Identity Not on file Sexual Orientation Not on file documented as of this encounter Plan of Treatment Not on file documented as of this encounter Visit Diagnoses Not on filedocumented in this encounter Care Teams Windows Mobile Developer Relationship Specialty Start Date End Date Michael Mims MD [address] [place] [address] PCP - General 10/11/11 03/21/14 documented as of this encounter
--- OUTSIDE RECORDS SUMMARY | 2024-06-04 14:55 | XMS_ITS | Encounter Summary ---
Author Organization [facility] [place] [address] Care Team Providers Care Manager Retention Name Role Phone Keo Orozco DEMO SPECIALIST Primary Care Provider Encounter Details Date Type Department Care Team (Late st Contact Info) Description 02/19/2011 11:00 AM EDT Office Visit [address] [address] Social History Tobacco Use Types [...] filedocumented in this encounter Care Teams Manager Retention Relationship Specialty Start Date End Date Keo Orozco APRN [address] [place] [address] PCP - General 09/30/10 09/29/11 documented as of this encounter
--- OUTSIDE RECORDS SUMMARY | 2024-06-04 14:55 | XMS_ITS | Encounter Summary ---
[place] [address] Care Team Providers Care Ingot Buggy Operator Name Role Phone Dom Kennedy MD Primary Care Provider [phone] Encounter Details Date Type Department Care Team (Late st Contact Info) Description 01/04/2012 Abstract [facility] Health Information Services [address] [place] [phone] Provider, His [place] MD Social History Tobacco [...] LAB RESULT CONVERSION Comment: Sourced from Yolande Gottlibe Conversion 01/04/2012 2:53 PM EDT His [place] Provider URINE ORDERABLES [facility] LAB RESULT CONVERSION documented in this encounter Visit Diagnoses Not on filedocumented in this encounter Care Teams Ingot Buggy Operator Relationship Specialty Start Date End Date Dom Kennedy MD PCP - General 12/28/16 documented as of this encounter
--- OUTSIDE RECORDS SUMMARY | 2024-06-04 14:55 | XMS_ITS | Encounter Summary ---
[place] [address] Care Team Providers Care Wood Tank Erector Name Role Phone Keo Orozco APRN Primary Care Provider Encounter Details Date Type Department Care Team ([facility] st Contact Info) Description 02/26/2011 10:45 AM EDT Follow-Up [facility] [address] [place] [address] Ramirez Ahuja MD [address] [place] [address] Social History Tobacco Use Types [...] on filedocumented in this encounter Care Teams Wood Tank Erector Relationship Specialty Start Date End Date Keo Orozco APRN [address] [place] [address] PCP - General 09/30/10 09/29/11 documented as of this encounter
--- OUTSIDE RECORDS SUMMARY | 2024-06-04 14:55 | XMS_ITS | Encounter Summary ---
Author Organization [facility] [address] Care Team Providers Care Clinical Technician Name Role Phone Ralph Ellison MD Primary Care Provider [phone] Reason for Referral * Diagnostic Test (Routine) - Closed Specialty Diagnoses / Procedures Referred By Contac t Referred To Contact Diagnoses Chest discomfort SOB (shortness of breath) Atypical chest pain Procedures Echocardiogram Stress (Treadmill) Adolfo Antonio MD [facility] [place] [address] [facility] [place] [address] Referral ID Status Reason Start Date Expiration Date V isits Requested Visits Authorized [id number] Closed Specialty Service Requested 09/26/2015 11/25/2015 1 1 Reason for Visit * Reason Comments Chest Pain * Consultation (SHERMAN) - Closed Specialty Diagnoses / Procedures Referred By Contac t Referred To Contact Cardiology Diagnoses positive cardiac stress test risk factors diabetes, hypertension and hyperlipidemia Ralph Ellison MD [facility] [address] [place] [address] [facility] Card[facility] [address] [place] [address] Referral ID Status Reason Start Date Expiration Date V isits Requested Visits Authorized [id number] Closed Consult, Test & Treat Connection Center 09/05/2015 09/04/2016 1 1 Encounter Details Date Type Department Care Team (Late st Contact Info) Description 09/11/2015 11:00 AM EST Office Visit Cardiology at [address] [place] [address] Adolfo Antonio MD [facility] [place] [address] Chest discomfort; SOB (shortness of breath); Atypical [...] from the original note were not included. [facility] ANTHONY Bui [address] CARDIOLOGY OUTPATIENT CONSULTATION [facility] Jefry Guadarrama [id number] 09/11/2015 REFERRING PROVIDER: Ralph Ellison CHIEF COMPLAINT: [...] he had a nuclear stress test at [facility] which was reportedly negative. His [...] He is and lives with his in [place], [place]. 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 He has never smoked. He drinks a [...] via any of the following mechanisms: Email: [email or web address] documented in this encounter Miscellaneous Notes * [...] 12:54 PM EDT Procedure: ?Stress Echocardiogram Patient: ?YEIMI JOSEPH ? (Age): 1960(54y) Med Rec#: ? [id number] ?Sex: ?M ? Site Loc: ? [facility] [place] [place] ?Ht / Wt: ??177(cm)/95.01(k Pt. Loc: ?Echo Lab ?BSA: ?2.12 Study Date: ?? 10/30/2015 ?Pt. Type: Tape: ? Referring: ADOLFO ANTONIO Referring: Adolfo Antonio Reading: Nirmal Arroyo ([id number]) [employer]os Bi Developer: Grady Orosco Change Management Analyst: Milagros Duke Interpreting Fellow: Gregor Schwarz ??([id number]) Interpreting Fellow: Madan Hu ([id number]) Interpreting Fellow: Albino Rice ([id number]) Diagnosis: *ICD-10-PCS Shortness of breath (R06.02) *ICD-10-PCS Other chest pain (R07.89) CPT Codes: *Stress Echo (20450) *Color Doppler (75058) *Doppler LTD (92903) *ECG Interpretation (34027) *Definity (77576JG) Stage ? BP ?HR ? Rest ?166/80 [...] E-wave Vmax ?0.5 ?m/sec ? MV deceleration [id number] ?msec ? MV A-wave Vmax ?0.6 ?m/sec [...] ?Normal ?Normal ? Mid-Inferoseptal ?Normal ?Normal ? [place]-Septal ? Normal ?Normal ? [place]-Anterior ? Normal ?Normal ? [place]-Lateral ?Normal ?Normal ? [place]-Inferior ? Normal ?Normal ? [place]-Tip ?Normal ?Normal ? This report has been electronically signed by: Nirmal Arroyo M.D. ? 10/30/2015 12:53:17 Images reviewed and interpretation verified [facility] Cardiac Ultrasound Laboratory Procedure Note Nirmal Arroyo MD - 10/30/2015 Procedure: Stress Echocardiogram Patient: YEIMI TORRES(Age): 1960(54y) Med Rec#: [id number] Sex: M Site Loc: [facility] [place] [place] Ht / Wt: 177(cm)/95.01(k Pt. Loc: Echo Lab BSA: 2.12 Study Date: 10/30/2015 Pt. Type: Tape: Referring: ADOLFO ANTONIO Referring: Adolfo Antonio Reading: Nirmal Arroyo ([id number]) [employer] Bi Developer: Grady Orosco Change Management Analyst: Milagros Duke Interpreting Fellow: Gregor Schwarz ([id number]) Interpreting Fellow: Madan Hu ([id number]) Interpreting Fellow: Albino Rice ([id number]) Diagnosis: *ICD-10-PCS Shortness of breath (R06.02) *ICD-10-PCS Other chest pain (R07.89) CPT Codes: *Stress Echo (97053) *Color Doppler (68847) *Doppler LTD (65075) *ECG Interpretation (75231) *Definity (10373VW) Stage BP HR Rest 166/80 86 Peak [...] MV E-wave Vmax 0.5 m/sec MV deceleration [id number] msec MV A-wave Vmax 0.6 m/sec MV [...] Normal Mid-Inferior Normal Normal Mid-Inferoseptal Normal Normal [place]-Septal Normal Normal [place]-Anterior Normal Normal [place]-Lateral Normal Normal [place]-Inferior Normal Normal [place]-Tip Normal Normal This report has been electronically signed by: Nirmal Arroyo M.D. 10/30/2015 12:53:17 Images reviewed and interpretation verified [facility] Cardiac Ultrasound Laboratory Adolfo Antonio MD ECHO ORDERABLES * Troponin T (09/11/2015 12:30 PM EST) Troponin-T <0.03 <=0.03 ng/mL [facility] Comment: 0.03 ng/mL: Represents the 99th [...] consensus document of the Joint Society of Cardiology/[place] College of Cardiology Committee for the redefinition of myocardial infarction. ??Journal of the [place] College of Cardiology 2000; 36: 959-969] Blood specimen (specimen) 09/11/2015 12:30 PM EST 09/11/2015 12:45 PM EST Narrative Resulting Agency Comment Spec In Lab Adolfo Antonio MD CHEMISTRY ORDERABLES Performing Organization Address City/[facility] Co de Phone Number MIRNA ROSAS * EKG 12 Lead (09/11/2015 11:00 AM EST) Ventricular rate 72 BPM MUSE SYSTEM Atrial Rate 72 BPM MUSE SYSTEM P-R Interval 180 ms MUSE SYSTEM QRS Duration 94 ms MUSE SYSTEM Q-T Interval 358 ms MUSE SYSTEM QTC Calculated (Bezet) 392 ms MUSE SYSTEM Calculated P [place] 73 degrees MUSE SYSTEM Calculated R [place] 74 degrees MUSE SYSTEM Calculated T [place] 63 degrees MUSE SYSTEM INTERPRETATION Normal sinus rhythm Normal ECG No previous ECGs available Confirmed by MD Melo, Adolfo ([id number]) on 09/11/2015 1:38:08 PM MUSE SYSTEM 09/11/2015 11:0 0 AM EST 09/11/2015 1:38 PM EST Adolfo Antonio MD ECG ORDERABLES Performing Organization Address [facility] Co de Phone Number MUSE SYSTEM documented in this encounter Visit Diagnoses Diagnosis Chest discomfort Other chest pain SOB (shortness of breath) Shortness of breath Atypical chest pain Other chest pain Chest discomfort Other chest pain SOB (shortness of breath) Shortness of breath Atypical chest pain Other chest pain documented in this encounter Care Teams Clinical Technician Relationship Specialty Start Date End Date Ralph Ellison MD [facility] [address] [place] [address] PCP - General General Internal Medicine 09/05/1512/13 documented as of this encounter
--- OUTSIDE RECORDS SUMMARY | 2024-06-04 14:55 | XMS_ITS | Encounter Summary ---
[place] [address] Care Team Providers Care Inspector Elevators Name Role Phone Michael Mims MD Primary Care Provider [phone] Encounter Details Date Type Department Care Team ([facility] st Contact Info) Description 03/22/2014 1:30 PM EDT Follow-Up [address] [phone] Janie Saravia PA [address] [place] [address] Social History Tobacco Use Types Packs/Day Years Used Date Smoking Tobacco: Never Assessed Sex and Gender Information Value Date Recorded Sex Assigned at Not on file Gender Identity Not on file Sexual Orientation Not on file documented as of this encounter Plan of Treatment Not on file documented as of this encounter Visit Diagnoses Not on filedocumented in this encounter Care Teams Inspector Elevators Relationship Specialty Start Date End Date Michael Mims MD [address] [place] [address] PCP - General 03/22/14 05/28/14 documented as of this encounter
--- OUTSIDE RECORDS SUMMARY | 2024-06-04 14:55 | XMS_ITS | Encounter Summary ---
Author Organization [facility] [place] [address] Care Team Providers Care Metalizer Name Role Phone Keo Orozco APRN Primary Care Provider Encounter Details Date Type Department Care Team (Late st Contact Info) Description 02/19/2011 3:00 PM EDT Procedure visit [address] [address] Radiology, [place] Social History Tobacco Use Types Packs/Day Years Used Date Smoking Tobacco: Never Assessed Sex and Gender Information Value Date Recorded Sex Assigned at Not on file Gender Identity Not on file Sexual Orientation Not on file documented as of this encounter Plan of Treatment Not on file documented as of this encounter Visit Diagnoses Not on filedocumented in this encounter Care Teams Metalizer Relationship Specialty Start Date End Date Keo Orozco APRN [address] [place] [address] PCP - General 09/30/10 09/29/11 documented as of this encounter
--- OUTSIDE RECORDS SUMMARY | 2024-06-04 14:55 | XMS_ITS | Encounter Summary ---
Author Organization Count Includes [facility] Address [facility] [place] [address] Care Team Providers Care Automation Engineering Manager Name Role Phone Keo Orozco STREET RAILWAY LINE INSTALLER Primary Care Provider [phone] Encounter Details Date Type Department Care Team ([facility] st Contact Info) Description 06/21/2011 1:00 PM EST Follow-Up [address] [phone] Janie Saravia PA [address] [place] [address] Social History Tobacco Use Types Packs/Day Years Used Date Smoking Tobacco: Never Assessed Sex and Gender Information Value Date Recorded Sex Assigned at Not on file Gender Identity Not on file Sexual Orientation Not on file documented as of this encounter Plan of Treatment Not on file documented as of this encounter Visit Diagnoses Not on filedocumented in this encounter Care Teams Automation Engineering Manager Relationship Specialty Start Date End Date Keo Orozco APRN [address] [place] [address] PCP - General 09/30/10 09/29/11 documented as of this encounter
--- OUTSIDE RECORDS SUMMARY | 2024-06-04 14:55 | XMS_ITS | Encounter Summary ---
[place] [address] Care Team Providers Care Supervisor Hand Silvering Name Role Phone Michael Mims MD Primary Care Provider [phone] Encounter Details Date Type Department Care Team ([facility] st Contact Info) Description 03/22/2014 1:00 PM EDT Office Visit [facility] [address] [place] [phone] Ramirez Ahuja MD [address] [place] [address] Social History Tobacco Use Types Packs/Day Years Used Date Smoking Tobacco: Never Assessed Sex and Gender Information Value Date Recorded Sex Assigned at Not on file Gender Identity Not on file Sexual Orientation Not on file documented as of this encounter Plan of Treatment Not on file documented as of this encounter Visit Diagnoses Not on filedocumented in this encounter Care Teams Supervisor Hand Silvering Relationship Specialty Start Date End Date Michael Mims MD [address] [place] [address] PCP - General 03/22/14 05/28/14 documented as of this encounter
--- OUTSIDE RECORDS SUMMARY | 2024-06-04 14:55 | XMS_ITS | Encounter Summary ---
[place] [address] Care Team Providers Care Lacquer Sizer Name Role Phone Dom Kennedy MD Primary Care Provider [phone] Encounter Details Date Type Department Care Team (Late st Contact Info) Description 11/10/2012 Abstract [facility] [address] [place] [phone] Provider, His [place] Social History Tobacco [...] oz) 11/10/2012 10:45 AM EDT Sourced from [employer] [facility] Height 175.3 cm (5' 9) 11/10/2012 10:4 5 AM EDT Sourced from [facility] Body Mass Index 32.07 11/10/2012 10:45 AM EDT documented in this encounter Plan of Treatment Not on file documented as of this encounter Visit Diagnoses Not on filedocumented in this encounter Care Teams Lacquer Sizer Relationship Specialty Start Date End Date Dom Kennedy MD PCP - General 12/28/16 documented as of this encounter
--- OUTSIDE RECORDS SUMMARY | 2024-06-04 14:55 | XMS_ITS | Encounter Summary ---
[place] [address] Care Team Providers Care Air Tester Name Role Phone Michael Mims MD Primary Care Provider [phone] Encounter Details Date Type Department Care Team (Late st Contact Info) Description 01/04/2012 11:40 AM EDT Office Visit [address] [address] Michael Mims MD [address] [place] [address] Social History Tobacco Use Types Packs/Day Years Used Date Smoking Tobacco: Never Assessed Sex and Gender Information Value Date Recorded Sex Assigned at Not on file Gender Identity Not on file Sexual Orientation Not on file documented as of this encounter Plan of Treatment Not on file documented as of this encounter Visit Diagnoses Not on filedocumented in this encounter Care Teams Air Tester Relationship Specialty Start Date End Date Michael Mims MD [address] [place] [address] PCP - General 10/11/11 03/21/14 documented as of this encounter
--- OUTSIDE RECORDS SUMMARY | 2024-06-04 14:55 | XMS_ITS | Encounter Summary ---
[place] [address] Care Team Providers Care Oven Dauber Name Role Phone Michael Mims MD Primary Care Provider [phone] Encounter Details Date Type Department Care Team ([facility] st Contact Info) Description 03/16/2012 11:00 AM EDT Office Visit [facility] [address] [place] [phone] David Holliday, PhD [address] [place] [address] Social History Tobacco Use Types Packs/Day Years Used Date Smoking Tobacco: Never Assessed Sex and Gender Information Value Date Recorded Sex Assigned at Not on file Gender Identity Not on file Sexual Orientation Not on file documented as of this encounter Plan of Treatment Not on file documented as of this encounter Visit Diagnoses Not on filedocumented in this encounter Care Teams Oven Dauber Relationship Specialty Start Date End Date Michael Mims MD [address] [place] [address] PCP - General 10/11/11 03/21/14 documented as of this encounter
--- OUTSIDE RECORDS SUMMARY | 2024-06-04 14:55 | XMS_ITS | Encounter Summary ---
[place] [address] Care Team Providers Care Marketing Project Coordinator Name Role Phone Michael Mims MD Primary Care Provider [phone] Encounter Details Date Type Department Care Team ([facility] st Contact Info) Description 10/14/2011 2:00 PM EST Follow-Up [facility] [address] [place] [address] Ramirez Ahuja MD [address] [place] [address] Social History Tobacco Use Types Packs/Day Years Used Date Smoking Tobacco: Never Assessed Sex and Gender Information Value Date Recorded Sex Assigned at Not on file Gender Identity Not on file Sexual Orientation Not on file documented as of this encounter Plan of Treatment Not on file documented as of this encounter Visit Diagnoses Not on filedocumented in this encounter Care Teams Marketing Project Coordinator Relationship Specialty Start Date End Date Michael Mims MD [address] [place] [address] PCP - General 10/11/11 03/21/14 documented as of this encounter
--- OUTSIDE RECORDS SUMMARY | 2024-06-04 14:55 | XMS_ITS | Encounter Summary ---
[place] [address] Care Team Providers Care Bricklayer Sewer Name Role Phone Keo Orozco APRN Primary Care Provider Encounter Details Date Type Department Care Team (Late st Contact Info) Description 03/08/2011 3:00 PM EDT Office Visit [facility] [address] [place] [phone] Lawson Mixon III, MD [address] [place] [address] Social History Tobacco Use Types Packs/Day Years Used Date Smoking Tobacco: Never Assessed Sex and Gender Information Value Date Recorded Sex Assigned at Not on file Gender Identity Not on file Sexual Orientation Not on file documented as of this encounter Plan of Treatment Not on file documented as of this encounter Visit Diagnoses Not on filedocumented in this encounter Care Teams Bricklayer Sewer Relationship Specialty Start Date End Date Keo Orozco APRN [address] [place] [address] PCP - General 09/30/10 09/29/11 documented as of this encounter
--- OUTSIDE RECORDS SUMMARY | 2024-06-04 14:55 | XMS_ITS | Encounter Summary ---
[place] [address] Care Team Providers Care Front End Architect Name Role Phone Michael Mims MD Primary Care Provider [phone] Encounter Details Date Type Department Care Team ([facility] st Contact Info) Description 04/05/2012 3:30 PM EDT Office Visit [facility] [address] [place] [phone] David Holliday, PhD [address] [place] [address] Social History Tobacco Use Types Packs/Day Years Used Date Smoking Tobacco: Never Assessed Sex and Gender Information Value Date Recorded Sex Assigned at Not on file Gender Identity Not on file Sexual Orientation Not on file documented as of this encounter Plan of Treatment Not on file documented as of this encounter Visit Diagnoses Not on filedocumented in this encounter Care Teams Front End Architect Relationship Specialty Start Date End Date Michael Mims MD [address] [place] [address] PCP - General 10/11/11 03/21/14 documented as of this encounter
--- OUTSIDE RECORDS SUMMARY | 2024-06-04 14:55 | XMS_ITS | Encounter Summary ---
[place] [address] Care Team Providers Care A&P Mechanic Name Role Phone Michael Mims MD Primary Care Provider [phone] Encounter Details Date Type Department Care Team ([facility] st Contact Info) Description 11/10/2012 10:45 AM EDT Follow-Up [facility] [address] [place] [phone] Ramirez Ahuja MD [address] [place] [address] Social History Tobacco Use Types Packs/Day Years Used Date Smoking Tobacco: Never Assessed Sex and Gender Information Value Date Recorded Sex Assigned at Not on file Gender Identity Not on file Sexual Orientation Not on file documented as of this encounter Plan of Treatment Not on file documented as of this encounter Visit Diagnoses Not on filedocumented in this encounter Care Teams A&P Mechanic Relationship Specialty Start Date End Date Michael Mims MD [address] [place] [address] PCP - General 10/11/11 03/21/14 documented as of this encounter
--- OUTSIDE RECORDS SUMMARY | 2024-06-04 14:55 | XMS_ITS | Encounter Summary ---
[place] [address] Care Team Providers Care Filter Helper Name Role Phone Dom [place] MD Primary Care Provider [phone] Encounter Details Date Type Department Care Team (Late st Contact Info) Description 01/04/2012 Abstract [facility] Information Services [address] [place] [phone] Provider, His [place] MD Social History Tobacco [...] on filedocumented in this encounter Care Teams Filter Helper Relationship Specialty Start Date End Date Dom [place] MD PCP - General 12/28/16 documented as of this encounter
--- OUTSIDE RECORDS SUMMARY | 2024-06-04 14:55 | XMS_ITS | Encounter Summary ---
Author Organization [facility] [place] [address] Care Team Providers Care Dumpling Machine Operator Name Role Phone Michael Mims MD Primary Care Provider [phone] Encounter Details Date Type Department Care Team (Late st Contact Info) Description 12/10/2011 9:00 AM EDT Laboratory Appointment [address] [phone] Social History Tobacco Use Types Packs/Day Years Used Date Smoking Tobacco: Never Assessed Sex and Gender Information Value Date Recorded Sex Assigned at Not on file Gender Identity Not on file Sexual Orientation Not on file documented as of this encounter Plan of Treatment Not on file documented as of this encounter Visit Diagnoses Not on filedocumented in this encounter Care Teams Dumpling Machine Operator Relationship Specialty Start Date End Date Michael Mims MD [address] [place] [address] PCP - General 10/11/11 03/21/14 documented as of this encounter
--- OUTSIDE RECORDS SUMMARY | 2024-06-04 14:55 | XMS_ITS | Encounter Summary ---
Author [facility] [place] [address] Care Team Providers Care Rn Maternity Name Role Phone Keo Orozco APRN Primary Care Provider Encounter Details Date Type Department Care Team (Late st Contact Info) Description 03/05/2011 10:00 AM EDT Office Visit [facility] [address] [place] [phone] Damon Gutierres MD [address] [place] [address] Social History Tobacco Use Types Packs/Day Years Used Date Smoking Tobacco: Never Assessed Sex and Gender Information Value Date Recorded Sex Assigned at Not on file Gender Identity Not on file Sexual Orientation Not on file documented as of this encounter Plan of Treatment Not on file documented as of this encounter Visit Diagnoses Not on filedocumented in this encounter Care Teams Rn Maternity Relationship Specialty Start Date End Date Keo Orozco APRN [address] [place] [address] PCP - General 09/30/10 09/29/11 documented as of this encounter
--- OUTSIDE RECORDS SUMMARY | 2024-06-04 14:55 | XMS_ITS | Encounter Summary ---
[place] [address] Care Team Providers Care Siding Coreboard Inspector Name Role Phone Michael Mims MD Primary Care Provider [phone] Encounter Details Date Type Department Care Team ([facility] st Contact Info) Description 01/19/2012 1:30 PM EDT Follow-Up [facility] [address] [place] [phone] Ramirez Ahuja MD [address] [place] [address] Social History Tobacco Use Types Packs/Day Years Used Date Smoking Tobacco: Never Assessed Sex and Gender Information Value Date Recorded Sex Assigned at Not on file Gender Identity Not on file Sexual Orientation Not on file documented as of this encounter Plan of Treatment Not on file documented as of this encounter Visit Diagnoses Not on filedocumented in this encounter Care Teams Siding Coreboard Inspector Relationship Specialty Start Date End Date Michael Mims MD [address] [place] [address] PCP - General 10/11/11 03/21/14 documented as of this encounter
--- OUTSIDE RECORDS SUMMARY | 2024-06-04 14:55 | XMS_ITS | Encounter Summary ---
Author Organization [facility] [place] [address] Care Team Providers Care Podiatric Physician Name Role Phone Keo Orozco POST EXCHANGE MANAGER Primary Care Provider Encounter Details Date Type Department Care Team (Late st Contact Info) Description 06/21/2011 11:15 AM EST Laboratory Appointment [address] [address] Social History Tobacco Use Types [...] on filedocumented in this encounter Care Teams Podiatric Physician Relationship Specialty Start Date End Date Keo Orozco APRN [address] [place] [address] PCP - General 09/30/10 09/29/11 documented as of this encounter
--- OUTSIDE RECORDS SUMMARY | 2024-06-04 14:56 | XMS_ITS | Encounter Summary ---
[place] [address] Care Team Providers Care Skilled Nursing Case Manager Name Role Phone Unavailable Primary Care Provider Unavailabl e Encounter Details Date Type Department Care Team (Late st Contact Info) Description 06/24/2010 9:00 AM EST Procedure visit [address] [address] Janie Saravia MD [facility] [place] Social History Tobacco Use Types Packs/Day Years [...]
--- OUTSIDE RECORDS SUMMARY | 2024-06-04 14:56 | XMS_ITS | Encounter Summary ---
[place] [address] Care Team Providers Care Sales Representative Consultant Name Role Phone Keo Orozco APRN Primary Care Provider Encounter Details Date Type Department Care Team ([facility] st Contact Info) Description 02/01/2011 11:30 AM EDT Follow-Up [facility] [address] [place] [address] Ramirez Ahuja MD [address] [place], [place] [phone] Social History Tobacco Use Types Packs/Day Years Used Date Smoking Tobacco: Never Assessed Sex and Gender Information Value Date Recorded Sex Assigned at Not on file Gender Identity Not on file Sexual Orientation Not on file documented as of this encounter Plan of Treatment Not on file documented as of this encounter Visit Diagnoses Not on filedocumented in this encounter Care Teams Sales Representative Consultant Relationship Specialty Start Date End Date Keo Orozco APRN [address] [place] [address] PCP - General 09/30/10 09/29/11 documented as of this encounter
--- OUTSIDE RECORDS SUMMARY | 2024-06-04 14:56 | XMS_ITS | Encounter Summary ---
[place] [address] Care Team Providers Care Pulling Machine Operator Name Role Phone Keo Orozco PRIMER INSERTING MACHINE OPERATOR Primary Care Provider Encounter Details Date Type Department Care Team (Late st Contact Info) Description 12/30/2010 4:00 PM EDT Office Visit [facility] [address] [place] [address] Lorene Luna, RD [address] [facility] [place] [address] Social History Tobacco Use Types Packs/Day Years Used Date Smoking Tobacco: Never Assessed Sex and Gender Information Value Date Recorded Sex Assigned at Not on file Gender Identity Not on file Sexual Orientation Not on file documented as of this encounter Plan of Treatment Not on file documented as of this encounter Visit Diagnoses Not on filedocumented in this encounter Care Teams Pulling Machine Operator Relationship Specialty Start Date End Date Keo Orozco APRN [address] [place] [address] PCP - General 09/30/10 09/29/11 documented as of this encounter
--- OUTSIDE RECORDS SUMMARY | 2024-06-04 14:56 | XMS_ITS | Encounter Summary ---
[place] [address] Care Team Providers Care Investor Name Role Phone Keo Orozco APRN Primary Care Provider Encounter Details Date Type Department Care Team ([facility] st Contact Info) Description 11/12/2010 9:15 AM EDT Office Visit [facility] [address] [place] [address] Ramirez Ahuja MD [address] [place] [address] Social History Tobacco Use Types [...] on filedocumented in this encounter Care Teams Investor Relationship Specialty Start Date End Date Keo Orozco APRN [address] [place] [address] PCP - General 09/30/10 09/29/11 documented as of this encounter
--- OUTSIDE RECORDS SUMMARY | 2024-06-04 14:56 | XMS_ITS | Encounter Summary ---
[place] [address] Care Team Providers Care Lockstitch Front Maker Name Role Phone Aftab Coles MD, Dom Conrad Primary Care Provider [phone] Encounter Details Date Type Department Care Team (Late st Contact Info) Description 08/19/2010 3:45 PM EST Office Visit [address] [phone] Keo Orozco APRN [address] [place] [address] Social History Tobacco Use Types Packs/Day Years Used Date Smoking Tobacco: Never Assessed Sex and Gender Information Value Date Recorded Sex Assigned at Not on file Gender Identity Not on file Sexual Orientation Not on file documented as of this encounter Plan of Treatment Not on file documented as of this encounter Visit Diagnoses Not on filedocumented in this encounter Care Teams Lockstitch Front Maker Relationship Specialty Start Date End Date Dom Ugalde Jr., MD PCP - General 08/11/10 09/03/10 documented as of this encounter
--- OUTSIDE RECORDS SUMMARY | 2024-06-04 14:56 | XMS_ITS | Encounter Summary ---
[place] [address] Care Team Providers Care Hemstitcher Name Role Phone Dom [place] MD Primary Care Provider [phone] Encounter Details Date Type Department Care Team (Late st Contact Info) Description 08/21/2010 Abstract [facility] Information Services [address] [place] [phone] Provider, His [place] MD Social History Tobacco [...] on filedocumented in this encounter Care Teams Hemstitcher Relationship Specialty Start Date End Date Dom Kennedy MD PCP - General 12/28/16 documented as of this encounter
--- OUTSIDE RECORDS SUMMARY | 2024-06-04 14:56 | XMS_ITS | Encounter Summary ---
[place] [address] Care Team Providers Care Armorer Technician Name Role Phone Dom Kennedy MD Primary Care Provider [phone] Encounter Details Date Type Department Care Team (Late st Contact Info) Description 08/15/2009 External Results Lab at [address] [phone] Social History Tobacco Use Types Packs/Day Years [...] Report (02/04/2010 1:47 PM EDT) Final Diagnosis [facility] Final Diagnosis 1. ??ASCENDING COLON BIOPSY: NO [...] totally submitted in two cassettes. Conversion [facility] Case Type: ? Routine Surgical Requesting Provider: ??LETICIA GALEANA M.D. [facility] Pathology Staff Roles Gross: Olman Stuart M.D. ? (P) N ? (ADDITIONAL) Pathologist: Olman Stuart M.D. ? (P) [facility] REPORT CONVERSION 02/04/2010 1:47 PM EDT Provider Kristin Pathology Report Convers ion PATHOLOGY/CYTOLOGY ORDERABLES [facility] PATH[facility] REPORT CONVERSION documented in this encounter Visit Diagnoses Not on filedocumented in this encounter Care Teams Armorer Technician Relationship Specialty Start Date End Date Dom [place] MD PCP - General 12/28/16 documented as of this encounter
--- OUTSIDE RECORDS SUMMARY | 2024-06-04 14:56 | XMS_ITS | Encounter Summary ---
Author Organization [facility] [place] [address] Care Team Providers Care Notcher Name Role Phone Keo Orozco HORSE IDENTIFIER Primary Care Provider Encounter Details Date Type Department Care Team (Late st Contact Info) Description 12/09/2010 10:00 AM EDT Procedure visit [address] [address] Social History Tobacco Use Types [...] on filedocumented in this encounter Care Teams Notcher Relationship Specialty Start Date End Date Keo Orozco APRN [address] [place] [address] PCP - General 09/30/10 09/29/11 documented as of this encounter
--- OUTSIDE RECORDS SUMMARY | 2024-06-04 14:56 | XMS_ITS | Encounter Summary ---
[place] [address] Care Team Providers Care Copy Chief Name Role Phone Aftab Coles MD, Dom Conrad Primary Care Provider [phone] Encounter Details Date Type Department Care Team ([facility] st Contact Info) Description 07/30/2010 3:30 PM EST Office Visit [address] [phone] Maura Rooney, PsVincent [address] [place] [address] [place] [address] Social History Tobacco Use Types [...] filedocumented in this encounter Care Teams Copy Chief Relationship Specialty Start Date End Date Dom Ugalde Jr., MD PCP - General 07/07/10 08/05/10 documented as of this encounter
--- OUTSIDE RECORDS SUMMARY | 2024-06-04 14:56 | XMS_ITS | Encounter Summary ---
Author Organization [place] [address] Care Team Providers Care Operations Research Analyst Name Role Phone Aftab Coles MD, Dom Conrad Primary Care Provider [phone]- [phone] Encounter Details Date Type Department Care Team (Late st Contact Info) Description 08/21/2010 4:00 AM EST Procedure visit [address] [address] Social History Tobacco Use Types [...] on filedocumented in this encounter Care Teams Operations Research Analyst Relationship Specialty Start Date End Date Dom Ugalde Jr., MD PCP - General 08/11/10 09/03/10 documented as of this encounter
--- OUTSIDE RECORDS SUMMARY | 2024-06-04 14:56 | XMS_ITS | Encounter Summary ---
Author Organization [facility] [place] [address] Care Team Providers Care Hard Hat Diver Name Role Phone Aftab Coles MD, Dom Conrad Primary Care Provider [phone]- [phone] Encounter Details Date Type Department Care Team (Late st Contact Info) Description 08/21/2010 6:00 AM EST Procedure visit [address] [address] Social History Tobacco Use Types [...] on filedocumented in this encounter Care Teams Hard Hat Diver Relationship Specialty Start Date End Date Dom Ugalde Jr., MD PCP - General 08/11/10 09/03/10 documented as of this encounter
--- OUTSIDE RECORDS SUMMARY | 2024-06-04 14:56 | XMS_ITS | Encounter Summary ---
[place] [address] Care Team Providers Care Headlight Adjuster Name Role Phone Keo Orozco APRN Primary Care Provider Encounter Details Date Type Department Care Team ([facility] st Contact Info) Description 12/21/2010 9:00 AM EDT Follow-Up [facility] [address] [place] [address] Ramirez Ahuja MD [address] [place], [place] [address] Social History Tobacco Use Types Packs/Day Years Used Date Smoking Tobacco: Never Assessed Sex and Gender Information Value Date Recorded Sex Assigned at Not on file Gender Identity Not on file Sexual Orientation Not on file documented as of this encounter Plan of Treatment Not on file documented as of this encounter Visit Diagnoses Not on filedocumented in this encounter Care Teams Headlight Adjuster Relationship Specialty Start Date End Date Keo Orozco APRN [address] [place] [address] PCP - General 09/30/10 09/29/11 documented as of this encounter
--- OUTSIDE RECORDS SUMMARY | 2024-06-04 14:56 | XMS_ITS | Encounter Summary ---
Author Organization [facility] [place] [address] Care Team Providers Care Sailing Master Name Role Phone Dom [place] MD Primary Care Provider [phone] Encounter Details Date Type Department Care Team (Late st Contact Info) Description 12/16/2010 [place] [phone] Unknown None Social History Tobacco Use Types [...] EXAMINATION: ??CT ??7991 - CT CHEST W/CONTRAST ??[address] DIAGNOSIS: ?MORBID OBESITY, GERD, DIABETES REASON: ? [...] EXAMINATION: CT 7991 - CT CHEST W/CONTRAST [address] DIAGNOSIS: MORBID OBESITY, GERD, DIABETES REASON: elevated [...] on filedocumented in this encounter Care Teams Sailing Master Relationship Specialty Start Date End Date Dom [place] MD PCP - General 12/28/16 documented as of this encounter
--- OUTSIDE RECORDS SUMMARY | 2024-06-04 14:56 | XMS_ITS | Encounter Summary ---
[place] [address] Care Team Providers Care Foundry Laborer Coreroom Name Role Phone Aftab Coles MD, Dom Conrad Primary Care Provider [phone] Encounter Details Date Type Department Care Team (Late st Contact Info) Description 09/09/2010 4:15 PM EST Office Visit [address] [phone] Keo Orozco APRN [address] [place] [address] Social History Tobacco Use Types Packs/Day Years Used Date Smoking Tobacco: Never Assessed Sex and Gender Information Value Date Recorded Sex Assigned at Not on file Gender Identity Not on file Sexual Orientation Not on file documented as of this encounter Plan of Treatment Not on file documented as of this encounter Visit Diagnoses Not on filedocumented in this encounter Care Teams Foundry Laborer Coreroom Relationship Specialty Start Date End Date Dom Ugalde Jr., MD PCP - General 09/09/10 09/29/10 documented as of this encounter
--- OUTSIDE RECORDS SUMMARY | 2024-06-04 14:56 | XMS_ITS | Encounter Summary ---
[place] [address] Care Team Providers Care Tool Repairer Bench Name Role Phone Aftab Coles MD, Dom Conrad Primary Care Provider [phone] Encounter Details Date Type Department Care Team ([facility] st Contact Info) Description 09/11/2010 4:00 PM EST Office Visit [facility] [address] [place] [address] Bijan Wallace, DPM [address] [place], [place] [id number] Social History Tobacco Use Types Packs/Day Years Used Date Smoking Tobacco: Never Assessed Sex and Gender Information Value Date Recorded Sex Assigned at Not on file Gender Identity Not on file Sexual Orientation Not on file documented as of this encounter Plan of Treatment Not on file documented as of this encounter Visit Diagnoses Not on filedocumented in this encounter Care Teams Tool Repairer Bench Relationship Specialty Start Date End Date Dom Ugalde Jr., MD PCP - General 09/09/10 09/29/10 documented as of this encounter
--- OUTSIDE RECORDS SUMMARY | 2024-06-04 14:56 | XMS_ITS | Encounter Summary ---
[place] [address] Care Team Providers Care Cold Type Composing Machine Operator Name Role Phone Aftab Coles MD, Dom Conrad Primary Care Provider [phone] Encounter Details Date Type Department Care Team ([facility] st Contact Info) Description 08/21/2010 9:30 AM EST Procedure visit [facility] [address] [place] [address] Ramirez Ahuja MD [address] [place] [address] Social History Tobacco Use Types [...] on filedocumented in this encounter Care Teams Cold Type Composing Machine Operator Relationship Specialty Start Date End Date Dom Ugalde Jr., MD PCP - General 08/11/10 09/03/10 documented as of this encounter
--- OUTSIDE RECORDS SUMMARY | 2024-06-04 14:56 | XMS_ITS | Encounter Summary ---
Author Organization [facility] [place] [address] Care Team Providers Care Roadway Designer Name Role Phone Dom Kennedy MD Primary Care Provider [phone] Encounter Details Date Type Department Care Team (Late st Contact Info) Description 12/16/2010 [place] [id number] Unknown None Social History Tobacco Use Types [...] EXAMINATION: ??RAD 7422 - BARIUM SWALLOW (ESOPHAGUS) [id number] DIAGNOSIS: ?MORBID OBESITY, GERD, DIABETES REASON: ? Post Lap. Gastric Band RESULT: ? Clinical Indication: ??Post lap band procedure. FINDINGS: ?The preliminary cartridge assembling machine adjuster film demonstrates characteristic positioning of the metallic [...] EXAMINATION: RAD 7422 - BARIUM SWALLOW (ESOPHAGUS) [id number] DIAGNOSIS: MORBID OBESITY, GERD, DIABETES REASON: Post Lap. Gastric Band RESULT: Clinical Indication: Post lap band procedure. FINDINGS: The preliminary cartridge assembling machine adjuster film demonstrates characteristic positioning of the metallic [...] on filedocumented in this encounter Care Teams Roadway Designer Relationship Specialty Start Date End Date Dom Kennedy MD PCP - General 12/28/16 documented as of this encounter
--- OUTSIDE RECORDS SUMMARY | 2024-06-04 14:56 | XMS_ITS | Encounter Summary ---
[place] [address] Care Team Providers Care Ribbon Winder Name Role Phone Keo Orozco DESK MANAGER Primary Care Provider Encounter Details Date Type Department Care Team ([facility] st Contact Info) Description 12/03/2010 9:00 AM EDT Office Visit [facility] [address] [place] [address] Lorene Luna, RD [address] [facility] [place] [address] Social History Tobacco Use Types Packs/Day Years Used Date Smoking Tobacco: Never Assessed Sex and Gender Information Value Date Recorded Sex Assigned at Not on file Gender Identity Not on file Sexual Orientation Not on file documented as of this encounter Plan of Treatment Not on file documented as of this encounter Visit Diagnoses Not on filedocumented in this encounter Care Teams Ribbon Winder Relationship Specialty Start Date End Date Keo Orozco APRN [address] [place] [address] PCP - General 09/30/10 09/29/11 documented as of this encounter
--- OUTSIDE RECORDS SUMMARY | 2024-06-04 14:56 | XMS_ITS | Encounter Summary ---
Author Organization [place] [address] Care Team Providers Care Flight Data Technician Name Role Phone Keo Orozco MFTS Primary Care Provider Encounter Details Date Type Department Care Team (Late st Contact Info) Description 12/03/2010 6:15 AM EDT Office Visit [address] [address] Social History Tobacco Use Types [...] on filedocumented in this encounter Care Teams Flight Data Technician Relationship Specialty Start Date End Date Keo Orozco APRN [address] [place] [address] PCP - General 09/30/10 09/29/11 documented as of this encounter
--- OUTSIDE RECORDS SUMMARY | 2024-06-04 14:56 | XMS_ITS | Encounter Summary ---
[place] [address] Care Team Providers Care Raw Mill Operator Name Role Phone Aftab Coles MD, Dom Conrad Primary Care Provider [phone] Encounter Details Date Type Department Care Team ([facility] st Contact Info) Description 07/30/2010 2:30 PM EST Office Visit [facility] [address] [place] [address] Lorene Luna, RD [address] [facility] [place] [address] Social History Tobacco Use Types Packs/Day Years Used Date Smoking Tobacco: Never Assessed Sex and Gender Information Value Date Recorded Sex Assigned at Not on file Gender Identity Not on file Sexual Orientation Not on file documented as of this encounter Plan of Treatment Not on file documented as of this encounter Visit Diagnoses Not on filedocumented in this encounter Care Teams Raw Mill Operator Relationship Specialty Start Date End Date Dom Ugalde Jr., MD PCP - General 07/07/10 08/05/10 documented as of this encounter
--- OUTSIDE RECORDS SUMMARY | 2024-06-04 14:56 | XMS_ITS | Encounter Summary ---
Author Organization [facility] [place] [address] Care Team Providers Care Knocker Out Name Role Phone Dom Kennedy MD Primary Care Provider [phone] Encounter Details Date Type Department Care Team (Late st Contact Info) Description 08/21/2010 Abstract [facility] Information Services [address] [place] [id number] Provider, His [place] MD Social History Tobacco [...] DM Eye Exam 08/17/2011 5:11:20 PM; See [employer] system for full report(Externa l Lab) [facility] LAB RESULT CONVERSION Comment:Sourced from Mckenna Gottlieb [...] on filedocumented in this encounter Care Teams Knocker Out Relationship Specialty Start Date End Date Dom Kennedy MD PCP - General 12/28/16 documented as of this encounter
[2024-06-04 15:19] LABS: Abs Immature Grans 0.02 10^3/uL (0.0-0.06); Absolute Basophil Count 0.05 10^3/uL (0.0-0.2); Absolute Eosinophil Count 0.09 10^3/uL (0.0-0.7); Absolute Lymphocyte Count 1.88 10^3/uL (1.2-3.4); Absolute Monocyte Count 0.54 10^3/uL (0.1-0.8); Absolute Neutrophil Count 4.57 10^3/uL (1.2-6.7); Basophils % 0.7 %; Eosinophils % 1.3 %; HCT 40.8 % (40.0-50.0); HGB 13.9 g/dL (13.5-17.5); Immature Grans % 0.3 %; Lymphocytes % 26.3 %; MCH 31.6 pg (27.0-33.0); MCHC 34.1 % (32.0-36.0); MCV 93 fL (80-95); MPV 8.4 fL (8.0-11.0); Monocytes % 7.6 %; Neutrophils % 63.8 %; Platelet Count 397 10^3/uL (130-400); RDW 12.4 % (11.8-14.1); RDW-SD 42.5 fL; WBC 7.15 10^3/uL (4.4-10.8)
[2024-06-04 15:43] LABS: Anion Gap 9.6 mmol/L (3-11); BUN 18 mg/dL (7-18); CO2 27.4 mmol/L (21.0-32.0); CREATININE 0.9 mg/dL (0.70-1.30); Calcium 9.5 mg/dL (8.5-10.1); Chloride 102 mmol/L (98-107); Estimated GFR 95.37 (mL/min/1.73m2); Glucose 99 mg/dL (74-106); Magnesium 1.9 mg/dL (1.8-2.4); Sodium 139 mmol/L (136-145); TSH (W/Ref FT4) 4.76 uIU/mL (0.36-3.74); Troponin I 4 ng/L (<or=76)
[2024-06-04 16:01] LABS: FREE T4 0.83 ng/dL (0.76-1.46)
--- NOTE | 2024-06-04 16:02 | DI.CT_ITS ---
Exam(s) CT BRAIN NECK CTA EXAM: CT BRAIN NECK CTA CLINICAL HISTORY: Confusion. TECHNIQUE: Imaging Protocol: Axial CT angiography was performed with multi-slice acquisition and mu lti-planar and/or 3D reconstructions. CONTRAST MATERIAL: Intravenous: Omnipaque 350 contrast volume:70 mL COMPARISON: CT HEAD WITHOUT CONTRAST from 10/28/[address] HEAD CERVICAL SPINE WO from 05/19/2024 FINDINGS: CT Head W/O and W: Ventricles and Extra axial spaces: Normal in size and morphology for the patient's age. Hemorrhage: None. Cerebral parenchyma: No evidence of an acute territorial infarct or mass effect. Midline shift: None. Brainstem/Cerebellum: Normal. Calvarium: Normal. Visualized Paranasal sinuses/Mastoids: Clear. Soft Tissues: Unremarkable. Enhancement: Unremarkable. CTA Neck W: Common Carotid: Right: No dissection, occlusion or significant stenosis. Left: No dissection, occlusion or significant stenosis. External Carotid: Right: No occlusion or significant stenosis. Left: No occlusion or significant stenosis. Internal Carotid: Right: No dissection, occlusion or significant stenosis. Left: No dissection, occlusion or significant stenosis. Vertebral Artery: Right: No dissection, occlusion or significant stenosis. Left: No dissection, occlusion or significant stenosis. Lung Apices: Normal. Bones: Within normal limits for the patient's age. Soft Tissues: Normal. Thyroid gland: Unremarkable. CTA Brain W: Internal Carotid Arteries: No aneurysm, occlusion or significant stenosis. Anterior Cerebral Arteries: Right: No aneurysm, occlusion or significant stenosis. Left: No aneurysm, occlusion or significant stenosis. Middle Cerebral Arteries: Right: No aneurysm, occlusion or significant stenosis. Left: No aneurysm, occlusion or significant stenosis. Posterior Cerebral Arteries: Right: No aneurysm, occlusion or significant stenosis. Left: No aneurysm, occlusion or significant stenosis. Vertebral Arteries: Right: No aneurysm, occlusion or significant stenosis. Left: No aneurysm, occlusion or significant stenosis. Basilar Artery: No aneurysm, occlusion or significant stenosis. IMPRESSION: 1. No large vessel occlusion or significant stenosis on the CT angiography of the head. 2. No acute intracranial process. 3. No occlusion or significant stenosis on the CT angiography of the neck. RADIATION DOSE DELIVERED: 2,173.7mGy.cm Total DLP DATA REPOSITORY: All CT scans at this facility are submitted to the National Radiology Data Registry (NRDR) Dose Index Registry (DIR) with the [employer] (ACR). RADIATION OPTIMIZATION: All CT scans at this facility use at least one of these dose optimization te chniques: automated exposure control; mA and/or kV adjustment per patient size (includes targeted exa ms where dose is matched to clinical indication); or iterative reconstruction.
[2024-06-04] MEDS: Normal Saline - Diluent 50 ML VIAL IJ (16:15)
[2024-06-04] MEDS: Omnipaque 350 MG/ML 100 ML BTL 70 ML IJ (16:16)
--- NOTE | 2024-06-04 17:00 | DI.RAD_ITS ---
Exam(s) XR PORTABLE CHEST AP EXAM: XR PORTABLE CHEST AP CLINICAL HISTORY: Weakness TECHNIQUE: 2D digital imaging was performed of the chest. One image was obtained. An AP view was ob tained. COMPARISON: CR,XR XR PORTABLE CHEST AP from 05/20/2024 FINDINGS: MEDIASTINUM: Normal. HEART: Normal. PULMONARY VASCULATURE: Normal. LUNGS: Clear. PLEURAL SPACE: No pleural effusion or pneumothorax. BONE:Within normal limits for the patient's age. OTHER FINDINGS:Normal. IMPRESSION: No acute pulmonary findings. DATA REPOSITORY: RADIATION DOSE DELIVERED:
[2024-06-04 17:04] LABS: Troponin I < 4 ng/L (<or=76)
--- NOTE | 2024-06-04 17:18 | W.EDPROG ---
Date of service: 06/04/24 Time of Service: 23:28 Medical Decision Making care assumed from off going provider. concern for ataxia, confusion that occurred yesterday. At the time of signout, final disposition was pending recommendations by teleneurology. 1720 spoke with tele neuro who evaluated the patient. concern for poor cognitive outcome after sepsis, but no clear etiology of symptoms. Recommend MRI brain w/wo to evaluate anoxic or inflammatory etiologies. Spoke with hospitalist to admit patient. Quality:[facility] Health Related Social Needs: No Data to Display Sign Out Sign Out Data: Sign Out Comment: 63-year-old male being evaluated by neurology. Please follow-up: 1. Teleneuro recommendations 2. Reach out to hospitalist patient requires admission for MRI Last updated by Dom Brooks MD at 06/04/24 17:10 Discharge Plan Disposition Patient Disposition: Admit to [facility] Condition: Stable Discharge Details Chief Complaint: Chest Pain Clinical Impression: Confusion Admit Date/Time: 06/04/24 18:48 Admit Provider: Jefry Waters Attending Provider: Jefry Waters Primary Care Provider: Kade Higuera ED Provider: Dom Brooks
--- NOTE | 2024-06-04 19:00 | W.PM.HP.N ---
Date of service: 06/04/24 Time of Service: 19:00 Assessment and Plan Assessment and plan (1) Confusion: Status: Acute Assessment and plan: More prominent with other examiners. Patient was less confused when I evaluated him Neurology believes this is related to the patient's recent admission for pneumonia Will check mycoplasma pneumonia serologies as well as chlamydia pneumonia Await MRI findings (2) Ataxia: Status: Acute Assessment and plan: Patient with difficulty walking will get PT to see him (3) Mental status alteration: Status: Acute Assessment and plan: Patient will have MRI with and without contrast tomorrow (4) Herpes simplex disease: Status: Acute Assessment and plan: Continue Valtrex 500 mg p.o. 3 times daily (5) Bilateral primary osteoarthritis of hip: Status: Resolved Assessment and plan: Continue Mobic (6) HTN (hypertension): Status: Chronic Assessment and plan: continue HTN meds (7) Insulin dependent type 2 diabetes mellitus: Status: Acute Assessment and plan: continue oral agents and SQ insulin per regimen. History of Present Illness History of Present Illness Chief Complaint: Mental status changes Narrative: Clinical course reviewed including notes, orders, labs, vitals, meds, imaging, and cultures. Care is discussed with primary nurse. This is a 63-year-old male who was recently hospitalized at an [facility] for pneumonia. He was cared for the intensive care unit with presumed pneumococcal pneumonia however his strep pneumonia urine antigen returned negative. He was admitted in septic shock on pressors to the intensive care unit and given intravenous ceftriaxone and doxycycline. He was able to wean off pressors quickly. He had a left sided pneumonia with a small pleural effusion. CT scan was negative for large collection. He was discharged home May 21 on cefpodoxime and doxycycline. On May 31, he was seen by his primary care doctor for an eruption in his right ear. Samples were sent and it was PCR positive for herpes simplex. It was PCR negative for varicella-zoster. He was placed on a large white pill twice a day which may be valacyclovir, Valtrex. Since he has been discharged, the patient reports having mental fogginess and difficulty with his balance. He was evaluated earlier today by the emergency room physician with more significant cognitive impairment that I found on my exam. For me, the patient was able to subtract serial sevens albeit slowly. I did not have him walk. He had good kmfari-ni-vhtl and appeared cognitively intact. The patient however does report that he has been having significant memory issues. He suffers from diabetes, BPH, neuropathy, back pain and muscle spasms, bilateral hip pain depression and reactive airway disease. The patient was evaluate by teleneurology with recommendations for MRI with and without contrast to be done in the morning. It is their concern that this is a continuation of problems associated with his pneumonia. Blood and urine cultures were negative at that time and the patient had negative strep pneumo urine antigen. Review of Systems All systems reviewed & are unremarkable except as noted in HPI and below PFSH All Active Problems (Updated 06/04/24 @ 19:13 by Jefry Waters DO) Herpes simplex disease (Acute) Ataxia (Acute) Mental status alteration (Acute) Confusion (Acute) Hamstring tightness of both lower extremities (Acute) Patellar tendinitis of both knees (Acute) Left knee pain (Acute) Right knee pain (Acute) Paresthesias (Acute) Corns and callosities (Acute) Hemangioma (Acute) Tubular adenoma (Acute ~07/2023) Screen for colon cancer (Acute) Atypical pigmented skin lesion (Acute) Colon adenomas (Acute) 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) [place]-Schlatter's disease (Acute) Hyperlipidemia (Acute) Sensorineural hearing loss (SNHL) of right ear with unrestricted hearing of left ear (Acute) Pain of right patellofemoral joint (Chronic) Depo-Medrol injection: 04/27/2024 Pain of left patellofemoral joint (Chronic) Depo-Medrol injection: 04/27/2024 Primary hypoadrenalism (Acute) Dysthymic disorder (Acute) HTN (hypertension) (Chronic) Insulin dependent type 2 diabetes mellitus (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 Gross hematuria BMI 28.0-28.9,adult Lower urinary tract symptoms (LUTS) Balanitis Concussion Seborrheic keratosis Exposure to hepatitis B Lower urinary tract infection Obesity Surgical History History of removal of nevus Hx of laparoscopic gastric banding (~12/25/10) 2009 colonoscopy (~07/2023) path sent Social History Smoking/Tobacco Use Status: Never Smoking risk assessment performed?: Yes Alcohol Intake: current Alcohol Intake frequency: holidays/special occasions only Drug use: Never Substance use type: does not use Household members: spouse and children Housing: house Number of Children: 1 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 Do you feel safe at home: Yes Do you feel safe in your relationship?: Yes Meds Allergies and Home Medications Allergies Allergy/AdvReac Type Severity Reaction Status Date / Time ENVIRONMENTAL/DOGS/CATS Allergy Mild ITCHY Uncoded 06/04/24 14:46 WATERY EYES Home Medications ?Medication ?Instructions ?Recorded ?Confirmed ?Type fluoxetine 40 mg capsule 40 mg PO DAILY 06/14/13 06/04/24 History tamsulosin 0.4 mg capsule 0.4 mg PO DAILY 04/20/19 06/04/24 History empagliflozin 25 mg tablet 25 mg PO DAILY 02/17/23 06/04/24 History insulin glargine 100 unit/mL (3 20 unit subcut .QD 02/17/23 06/04/24 History mL) subcutaneous pen (Lantus Solostar U-100 Insulin) gabapentin 100 mg capsule See Rx Instructions PO QHS PRN 07/18/23 06/04/24 History metformin 500 mg tablet,extended 1,500 mg PO DAILY 07/18/23 06/04/24 History release 24 hr albuterol sulfate 90 mcg/actuation 3 puff inhalation QID PRN 07/28/23 06/04/24 Rx aerosol inhaler shortness of breath or wheezing #6.7 grams cyclobenzaprine 5 mg tablet See Rx Instructions PO TID PRN 04/11/24 06/04/24 History glipizide 2.5 mg tablet, extended 2.5 mg PO DAILY 04/11/24 06/04/24 History release 24 hr meloxicam 15 mg tablet See Rx Instructions .Route 04/29/24 06/04/24 Rx .COMPLEX #30 tabs cefpodoxime 200 mg tablet 200 mg PO BID #12 tabs 05/21/24 06/04/24 Rx Exam Narrative Exam Narrative: Patient is examined in the emergency department. is at the bedside. Patient appears comfortable on RA Patient is alert and oriented x 3 and in no acute distress HEENT: Neck supple, MM pink, dry and pasty, conjunctiva non-injected, sclera non-icteric, Pupils equal and reactive to light symmetrically, no JVD, no A waves. No thyromegaly. No carotid bruit CHEST: Bilaterally symmetrical with inspiration and expiration. No use of accessory muscles of respiration. No nasal flaring. RESP: Clear BS bilaterally, no rhonchi, no wheeze, no rales. COR: heart tones distant, RRR normal S1S2, no rub or gallop ABDOMEN: Soft, non tender diffusely, normally active bowel sounds diffusely, No hepatosplenomegaly, No abdominal bruit, no masses, no tenderness on deep abdominal palpation. Left lateral epigastric region notable for subcutaneous device which is a Lap-Band pump. Pocket appears clear of any type of complication or infection. G/U: deferred Rectal: deferred MUSCULOSKELETAL: Bilaterally symmetrical, no muscle belly tenderness or mass DERMIS: Skin warm and dry, no ulcers or rashes, EXTREMITIES: No cyanosis, clubbing or edema, no gross deformities of the large or small joints of the upper or lower extremities. NEUROLOGICAL: Cranial nerves intact II-XII without notable deficit, No peripheral neurosensory or motor deficits noted. Gait was not examined. Pstprh-pv-wehs intact. Patient is able to count backwards by serial sevens LYMPH: No anterior or posterior cervical, no supraclavicular, No axillary, no epitrochlear or femoral lymphadenopathy. Results Labs 06/04/24 15:10 06/04/24 15:10 Labs: Laboratory Results - last 24 hr 06/04/24 06/04/24 06/04/24 15:10 16:39 18:11 WBC 7.15 RBC 4.40 Hgb 13.9 Hct 40.8 MCV 93 MCH 31.6 MCHC 34.1 RDW 12.4 Plt Count 397 MPV 8.4 Immature Gran % 0.3 Neutrophils % 63.8 Lymphocytes % 26.3 Monocytes % 7.6 Eosinophils % 1.3 Basophils % 0.7 Nucleated RBC % 0.0 Absolute Neutrophils 4.57 Absolute Lymphocytes 1.88 Absolute Monocytes 0.54 Absolute Eosinophils 0.09 Absolute Basophils 0.05 Sodium 139 Potassium 4.0 Chloride 102 Carbon Dioxide 27.4 Anion Gap 9.6 BUN 18 Creatinine 0.9 Est GFR (CKD-EPI 2020) 95.37 Glucose 99 Calcium 9.5 Magnesium 1.9 Troponin I 4 < 4 Cancelled TSH 4.76 H Free T4 0.83 Last Vital Signs Temp 36.2 C L 06/04/24 14:42 Pulse 89 06/04/24 17:01 Resp 14 06/04/24 17:01 BP 145/62 H 06/04/24 17:01 Pulse Ox 96 06/04/24 17:01 Time Spent Time spent with Patient: 55-74 minutes Time was spent: preparing to see the patient(eg.review tests), obtaining and/or reviewing separately otained hiistory, ordering medications,tests, procedures, referring, communicating with other health career development coordinator/teacher, indepentently interpreting results, counseling the patient and care coordination
[2024-06-04 19:20] LABS: ESR 25 mm/hr (0-20)
[2024-06-04 19:33] LABS: C-Reactive Protein < 0.50 mg/dL (<or=0.5)
--- NOTE | 2024-06-04 19:58 | W.PC.ACHO ---
Registration Status: Primary Language: Preferred Language: ED Information & Data Chief Complaint Chest Pain 06/04/24 14:53 Other Complaint AMS/LOC 06/04/24 14:42 Triage Note pt states having chest pain, 06/04/24 14:42 mild, but more fatigued, brain fogginess. Pt getting tired very easily. reports he is more confused than baseline. s/s started tuesday, and is now mildly improved, worst symptoms were on tuesday. pt recently had pneumonia/sepsis, discharged 05/28. Since then pt hasn't really felt himself. Medical / Surgical History (Last Reviewed 06/04/24 @ 19:07 by Jefry Waters DO) Seborrheic keratosis (07/15/14) Neoplasm of skin (07/08/14) History of Lyme disease Gross hematuria BMI 28.0-28.9,adult Lower urinary tract symptoms (LUTS) Balanitis Concussion Seborrheic keratosis Exposure to hepatitis B Lower urinary tract infection Obesity (Last Reviewed 06/04/24 @ 19:07 by Jefry Waters DO) History of removal of nevus Hx of laparoscopic gastric banding (~12/25/10) colonoscopy (~07/2023) Most Recent Vital Signs Temperature 37.2 C 06/04/24 18:46 Pulse 77 06/04/24 18:46 Pulse 88 06/04/24 19:10 Respiratory Rate 16 06/04/24 19:10 Respiratory Effort Normal, Non-Labored 06/04/24 16:50 Respiratory Depth Normal 06/04/24 16:50 Respiratory Pattern Normal 06/04/24 16:09 Blood Pressure 155/93 H 06/04/24 18:46 Blood Pressure Mean 110 06/04/24 18:46 Pulse Oximetry 97 06/04/24 19:10 Oxygen Delivery Method Room Air 06/04/24 14:42 Oxygen Flow Rate 0 06/04/24 14:42 Pain Level 1 06/04/24 14:42 Allergies ENVIRONMENTAL/DOGS/CATS Allergy (Mild, Uncoded 06/04/24 14:46) ITCHY WATERY EYES Active Medications Generic Name Dose Route Start Last Admin Trade Name Freq PRN Reason Stop Dose Admin Iohexol 70 ml 06/04/24 16:30 06/04/24 16:16 Omnipaque 350 Mg/Ml 100 Ml Btl IJ 07/04/24 23:59 70 ml DIRECTED SHAVON Administration Sodium Chloride 50 ml 06/04/24 16:15 06/04/24 16:15 Normal Saline - Diluent 50 Ml Vial IJ 50 ml .FOR DI USE SHAVON Administration IV IV Catheter Type [Left Saline Lock Antecubital] IV Catheter Gauge [Left 18 Antecubital] Diet Orders Category Date Time Status Diabetes Consistent CHO/Low Na [DIET] Nutrition 06/04/24 Dinner Active Diagnostics 06/04/24 06/04/24 06/04/24 Range/Units Unknown 18:11 16:39 WBC (4.4-10.8) 10^3/uL RBC (4.36-5.78) 10^6/uL Hgb (13.5-17.5) g/dL Hct (40.0-50.0) % MCV (80-95) fL MCH (27.0-33.0) pg MCHC (32.0-36.0) % RDW (11.8-14.1) % Plt Count (130-400) 10^3/uL MPV (8.0-11.0) fL Immature Gran % % Neutrophils % % Lymphocytes % % Monocytes % % Eosinophils % % Basophils % % Nucleated RBC % (0.0-0.3) % Absolute Neutrophils (1.2-6.7) 10^3/uL Absolute Lymphocytes (1.2-3.4) 10^3/uL Absolute Monocytes (0.1-0.8) 10^3/uL Absolute Eosinophils (0.0-0.7) 10^3/uL Absolute Basophils (0.0-0.2) 10^3/uL ESR (0-20) mm/hr Sodium (136-145) mmol/L Potassium (3.5-5.1) mmol/L Chloride (98-107) mmol/L Carbon Dioxide (21.0-32.0) mmol/L Anion Gap (3-11) mmol/L BUN (7-18) mg/dL Creatinine (0.70-1.30) mg/dL Est GFR (CKD-EPI 2020) (mL/min/1.73m2) Glucose (74-106) mg/dL Calcium (8.5-10.1) mg/dL Magnesium (1.8-2.4) mg/dL Troponin I Cancelled < 4 (<or=76) ng/L C-Reactive Protein (<or=0.5) mg/dL TSH (0.36-3.74) uIU/mL Free T4 (0.76-1.46) ng/dL C. pneumoniae IgG Titer Pending C. pneumoniae IgM Titer Pending C. psittaci IgG Titer Pending C. psittaci IgM Titer Pending 06/04/24 Range/Units 15:10 WBC 7.15 (4.4-10.8) 10^3/uL RBC 4.40 (4.36-5.78) 10^6/uL Hgb 13.9 (13.5-17.5) g/dL Hct 40.8 (40.0-50.0) % MCV 93 (80-95) fL MCH 31.6 (27.0-33.0) pg MCHC 34.1 (32.0-36.0) % RDW 12.4 (11.8-14.1) % Plt Count 397 (130-400) 10^3/uL MPV 8.4 (8.0-11.0) fL Immature Gran % 0.3 % Neutrophils % 63.8 % Lymphocytes % 26.3 % Monocytes % 7.6 % Eosinophils % 1.3 % Basophils % 0.7 % Nucleated RBC % 0.0 (0.0-0.3) % Absolute Neutrophils 4.57 (1.2-6.7) 10^3/uL Absolute Lymphocytes 1.88 (1.2-3.4) 10^3/uL Absolute Monocytes 0.54 (0.1-0.8) 10^3/uL Absolute Eosinophils 0.09 (0.0-0.7) 10^3/uL Absolute Basophils 0.05 (0.0-0.2) 10^3/uL ESR 25 H (0-20) mm/hr Sodium 139 (136-145) mmol/L Potassium 4.0 (3.5-5.1) mmol/L Chloride 102 (98-107) mmol/L Carbon Dioxide 27.4 (21.0-32.0) mmol/L Anion Gap 9.6 (3-11) mmol/L BUN 18 (7-18) mg/dL Creatinine 0.9 (0.70-1.30) mg/dL Est GFR (CKD-EPI 2020) 95.37 (mL/min/1.73m2) Glucose 99 (74-106) mg/dL Calcium 9.5 (8.5-10.1) mg/dL Magnesium 1.9 (1.8-2.4) mg/dL Troponin I 4 (<or=76) ng/L C-Reactive Protein < 0.50 (<or=0.5) mg/dL TSH 4.76 H (0.36-3.74) uIU/mL Free T4 0.83 (0.76-1.46) ng/dL C. pneumoniae IgG Titer C. pneumoniae IgM Titer C. psittaci IgG Titer C. psittaci IgM Titer Knrgd-og-Almm Documentation Fingerstick Glucose Start: 06/04/24 16:06 Freq: Status: Active Protocol: Activity Type Activity Date Activity User E-sign Co-sign Detail Recorded Client Recorded Date Recorded By Document 06/04/24 19:21 BKG DAEMON(5) [id number] 06/04/24 19:22 BKG DAEMON(6) Intake and Output - 24 Hour Total 06/04/24 14:39 thru 06/04/24 19:19 Intake Total 20 Balance 20 Weight 89.1 kg Intake: IV 20 Falls Risk Assessment History of Falls No History 06/04/24 16:09 Fall Total Score 0 06/04/24 16:09 Level of Risk Standard/Low Risk 06/04/24 16:09 Problems (Last Reviewed 06/04/24 @ 19:07 by Jefry Waters DO) Herpes simplex disease (Acute) Ataxia (Acute) Mental status alteration (Acute) Confusion (Acute) HTN (hypertension) (Chronic) Insulin dependent type 2 diabetes mellitus (Acute) v v v v v v v v v Sending and/or Receiving Nurses: Please use comment section below to note any information pertinent to the patient hand-off not included above. Information / Comments: Chest pain as chief complaint, negative trops. Lethargic, more confused than normal. Teleneuro consult done in ED. Blood sugar 179. Eating okay. Waiting for MRI w/o contrast. VSS, afebrile. Up independently, chlamydia screening needs to be collected, takes lantus at HS. Reports no pain. PIV L AC (18g). Med rec is complete. Report received from: Corey Garcias RN
[2024-06-04 20:30] LABS: Bilirubin Negative (Negative); Blood Negative (Negative); Clarity Clear (Clear); Glucose >=1000 mg/dL (Negative); Ketones Negative (Negative); Leukocyte Esterase Negative (Negative); Nitrite Negative (Negative); Urobilinogen 0.2 mg/dL (Up to 0.2); pH 6.5 (5-8)
[2024-06-04 20:42] LABS: Bacteria Negative HPF (Negative); C & S Indicated? No; Casts Negative LPF (Negative); Crystals Negative HPF (Negative); Epithelial Cells Negative HPF (Negative); Mucus Negative (Negative); RBC 0-2 HPF (0-2)
[2024-06-04] MEDS: Enoxaparin 40 MG/0.4 ML SYR SC (21:13)
[2024-06-04] MEDS: valACYclovir 500 MG TAB PO (21:14)
[2024-06-04] MEDS: Cefpodoxime 200 MG TAB PO (21:14)
[2024-06-04] MEDS: Normal Saline Flush 10 ML SYR IVP (21:39)
--- NOTE | 2024-06-05 | DI.MRI_ITS ---
Exam(s) MR BRAIN WO/W EXAM: MR BRAIN WO/W CLINICAL HISTORY: mental status changes TECHNIQUE: Multiplanar multisequence MRI of the brain was performed. Both noninfused and contrast i nfused sequences were performed. IV Contrast injected was 18 cc Dotarem. COMPARISON: CT CT BRAIN NECK CTA from 06/04/2024 FINDINGS: CEREBRAL PARENCHYMA: No evidence of intracranial hemorrhage, mass effect nor shift of midline structu re. No extraaxial fluid collections. Ventricles are not enlarged nor shifted. There is no significant focal signal abnormality in the cerebellar hemispheres. There is, however, s ignificant FLAIR bright signal abnormality in the central and right side of the henok, not associated with hemorrhage, surrounding edema nor enhancement nor restricted diffusion. No abnormal signal in t he midbrain and thalami. There are scattered small sub cm foci of Adrianne-supra ventricular white matte r signal abnormality consistent with chronic small vessel disease. DWI: No areas of restricted diffusion to suggest acute ischemic event. SWI: No microhemorrhages evident. There are no ring enhancing lesions in the brain. There is no abnormal meningeal enhancement. PITUITARY GLAND: No mass nor parasellar abnormality. No obvious abnormality in the cavernous sinuses. FLOW VOIDS: The expected flow void are noted. No evidence of obvious aneurysm nor obvious vascular ma lformation. PARANASAL SINUSES: The visualized paranasal sinuses appear unremarkable. ORBITS: No obvious abnormal findings. IMPRESSION: 1. There are foci of signal abnormality in the central-right side of the henok as well as scattered in the bilateral periventricular white matter consistent with chronic small vessel disease. There is n o evidence of hemorrhage nor enhancement no restricted diffusion. 2. No abnormal enhancing intracranial findings. There are no ring enhancing lesions in the brain and there is no abnormal meningeal enhancement. DATA REPOSITORY:
[2024-06-05 06:40] LABS: Abs Immature Grans 0.02 10^3/uL (0.0-0.06); Absolute Basophil Count 0.05 10^3/uL (0.0-0.2); Absolute Eosinophil Count 0.14 10^3/uL (0.0-0.7); Absolute Lymphocyte Count 2.62 10^3/uL (1.2-3.4); Absolute Monocyte Count 0.57 10^3/uL (0.1-0.8); Absolute Neutrophil Count 2.28 10^3/uL (1.2-6.7); Basophils % 0.9 %; Eosinophils % 2.5 %; HCT 36.6 % (40.0-50.0); HGB 12.4 g/dL (13.5-17.5); Immature Grans % 0.4 %; Lymphocytes % 46.1 %; MCH 31.7 pg (27.0-33.0); MCHC 33.9 % (32.0-36.0); MCV 94 fL (80-95); MPV 8.5 fL (8.0-11.0); Neutrophils % 40.1 %; Platelet Count 328 10^3/uL (130-400); RBC 3.91 10^6/uL (4.36-5.78); RDW 12.5 % (11.8-14.1); RDW-SD 42.8 fL; WBC 5.68 10^3/uL (4.4-10.8)
[2024-06-05 06:58] LABS: ALT 15 U/L (16-63); AST 13 U/L (15-37); Albumin 2.9 g/dL (3.4-5.0); Alkaline Phosphatase 49 U/L (46-116); Anion Gap 8.6 mmol/L (3-11); BUN 11 mg/dL (7-18); Bilirubin, Total 0.39 mg/dL (0.2-1.0); CO2 28.4 mmol/L (21.0-32.0); CREATININE 0.8 mg/dL (0.70-1.30); Calcium 8.5 mg/dL (8.5-10.1); Chloride 108 mmol/L (98-107); Estimated GFR 98.83 (mL/min/1.73m2); Glucose 80 mg/dL (74-106); Potassium 3.7 mmol/L (3.5-5.1); Sodium 145 mmol/L (136-145); Total Protein 6.4 g/dL (6.4-8.2)
[2024-06-05 07:14] VITALS: BP 135/89; PULSE 70; RESP 16; TEMP 36.4; O2SAT 97
[2024-06-05] MEDS: Cefpodoxime 200 MG TAB PO (08:03)
[2024-06-05] MEDS: FLUoxetine 20 MG CAP 40 MG PO (08:04)
[2024-06-05] MEDS: Tamsulosin 0.4 MG CAPCR PO (08:04)
[2024-06-05] MEDS: Empaglifozin 25 MG TAB PO (08:04)
[2024-06-05] MEDS: Meloxicam 15 MG TAB PO (08:05)
[2024-06-05] MEDS: Normal Saline Flush 10 ML SYR IVP ×3 (08:07→20:21)
--- NOTE | 2024-06-05 08:18 | PGE_ITS ---
Date of Service Date of service: 06/05/24 Time of Service: 08:18 Assessment and Plan Assessment and plan (1) Confusion: Status: Acute Assessment and plan: More prominent with other examiners. Patient was less confused when I evaluated him Neurology believes this is related to the patient's recent admission for pneumonia Will check mycoplasma pneumonia serologies as well as chlamydia pneumonia MRI findings not consistant with post pneumonia changes. Will check West Nile virus serology. (2) Ataxia: Status: Acute Assessment and plan: Patient with difficulty walking will get PT to see him (3) Mental status alteration: Status: Acute Assessment and plan: Await neurology input (4) Herpes simplex disease: Status: Acute Assessment and plan: Continue Valtrex 500 mg p.o. 3 times daily for R ear canal PCR + HSV outbreak. (5) Bilateral primary osteoarthritis of hip: Status: Resolved Assessment and plan: Continue Mobic (6) HTN (hypertension): Status: Chronic Assessment and plan: continue HTN meds (7) Insulin dependent type 2 diabetes mellitus: Status: Acute Assessment and plan: continue oral agents and SQ insulin per regimen. Hold metformin (8) Tinea cruris: Status: Acute Assessment and plan: nystatin ointment tid to groin Subjective Subjective Interval history since last seen: Clinical course reviewed including notes, orders, labs, vitals, meds, imaging, and cultures. Care is discussed with primary nurse. Patient had MRI and I have contacted Teleneuro after pushing images to [facility]. I have not heard from them. Patient feels better today, he thinks because of resting. at bedside. wonders if this may be due to the HSV med MRI with flair in [place]. Ear improved. From Admit Note This is a 63-year-old male who was recently hospitalized at an [facility] for pneumonia. He was cared for the intensive care unit with presumed pneumococcal pneumonia however his strep pneumonia urine antigen returned negative. He was admitted in septic shock on pressors to the intensive care unit and given intravenous ceftriaxone and doxycycline. He was able to wean off pressors quickly. He had a left sided pneumonia with a small pleural effusion. CT scan was negative for large collection. He was discharged home May 21 on cefpodoxime and doxycycline. On May 31, he was seen by his primary care doctor for an eruption in his right ear. Samples were sent and it was PCR positive for herpes simplex. It was PCR negative for varicella-zoster. He was placed on a large white pill twice a day which may be valacyclovir, Valtrex. Since he has been discharged, the patient reports having mental fogginess and difficulty with his balance. He was evaluated earlier today by the emergency room physician with more significant cognitive impairment that I found on my exam. For me, the patient was able to subtract serial sevens albeit slowly. I did not have him walk. He had good [id number] and appeared cognitively intact. The patient however does report that he has been having significant memory issues. He suffers from diabetes, BPH, neuropathy, back pain and muscle spasms, bilateral hip pain depression and reactive airway disease. The patient was evaluate by teleneurology with recommendations for MRI with and without contrast to be done in the morning. It is their concern that this is a continuation of problems associated with his pneumonia. Blood and urine cultures were negative at that time and the patient had negative strep pneumo urine antigen. Exam Narrative Exam Narrative: Patient is examined in the Med surg floor. is at the bedside. Patient appears comfortable on RA. Exam without change at this time. Patient is alert and oriented x 3 and in no acute distress HEENT: Neck supple, MM pink, dry and pasty, conjunctiva non-injected, sclera non-icteric, Pupils equal and reactive to light symmetrically, no JVD, no A waves. No thyromegaly. No carotid bruit CHEST: Bilaterally symmetrical with inspiration and expiration. No use of accessory muscles of respiration. No nasal flaring. RESP: Clear BS bilaterally, no rhonchi, no wheeze, no rales. COR: heart tones distant, RRR normal S1S2, no rub or gallop ABDOMEN: Soft, non tender diffusely, normally active bowel sounds diffusely, No hepatosplenomegaly, No abdominal bruit, no masses, no tenderness on deep abdominal palpation. Left lateral epigastric region notable for subcutaneous device which is a Lap-Band pump. Pocket appears clear of any type of complication or infection. G/U: deferred Rectal: deferred MUSCULOSKELETAL: Bilaterally symmetrical, no muscle belly tenderness or mass DERMIS: Skin warm and dry, no ulcers or rashes, EXTREMITIES: No cyanosis, clubbing or edema, no gross deformities of the large or small joints of the upper or lower extremities. NEUROLOGICAL: Cranial nerves intact II-XII without notable deficit, No peripheral neurosensory or motor deficits noted. Gait was not examined. [id number] intact. Patient is able to count backwards by serial sevens LYMPH: No anterior or posterior cervical, no supraclavicular, No axillary, no epitrochlear or femoral lymphadenopathy. Objective Last Vital Signs Temp 36.4 C L 06/05/24 07:14 Pulse 70 06/05/24 07:14 Resp 16 06/05/24 07:14 BP 135/89 06/05/24 07:14 Pulse Ox 97 06/05/24 07:14 Laboratory Results - last 24 hr 06/04/24 06/04/24 06/04/24 15:10 16:39 18:11 WBC 7.15 RBC 4.40 Hgb 13.9 Hct 40.8 MCV 93 MCH 31.6 MCHC 34.1 RDW 12.4 Plt Count 397 MPV 8.4 Immature Gran % 0.3 Neutrophils % 63.8 Lymphocytes % 26.3 Monocytes % 7.6 Eosinophils % 1.3 Basophils % 0.7 Nucleated RBC % 0.0 Absolute Neutrophils 4.57 Absolute Lymphocytes 1.88 Absolute Monocytes 0.54 Absolute Eosinophils 0.09 Absolute Basophils 0.05 ESR 25 H Sodium 139 Potassium 4.0 Chloride 102 Carbon Dioxide 27.4 Anion Gap 9.6 BUN 18 Creatinine 0.9 Est GFR (CKD-EPI 2020) 95.37 Glucose 99 Calcium 9.5 Magnesium 1.9 Total Bilirubin AST ALT Alkaline Phosphatase Troponin I 4 < 4 Cancelled C-Reactive Protein < 0.50 Total Protein Albumin TSH 4.76 H Free T4 0.83 Urine Color Urine Clarity Urine pH Ur Specific [place] Urine Protein Urine Ketones Urine Blood Urine Nitrite Urine Bilirubin Urine Urobilinogen Ur Leukocyte Esterase Urine RBC Urine WBC Ur Epithelial Cells Urine Crystals Urine Bacteria Urine Casts Urine Mucus Ur Culture Indicated? Urine Glucose 06/04/24 06/05/24 20:15 06:20 WBC 5.68 RBC 3.91 L Hgb 12.4 L Hct 36.6 L MCV 94 MCH 31.7 MCHC 33.9 RDW 12.5 Plt Count 328 MPV 8.5 Immature Gran % 0.4 Neutrophils % 40.1 Lymphocytes % 46.1 Monocytes % 10.0 Eosinophils % 2.5 Basophils % 0.9 Nucleated RBC % 0.0 Absolute Neutrophils 2.28 Absolute Lymphocytes 2.62 Absolute Monocytes 0.57 Absolute Eosinophils 0.14 Absolute Basophils 0.05 ESR Sodium 145 Potassium 3.7 Chloride 108 H Carbon Dioxide 28.4 Anion Gap 8.6 BUN 11 Creatinine 0.8 Est GFR (CKD-EPI 2020) 98.83 Glucose 80 Calcium 8.5 Magnesium Total Bilirubin 0.39 AST 13 L ALT 15 L Alkaline Phosphatase 49 Troponin I C-Reactive Protein Total Protein 6.4 Albumin 2.9 L TSH Free T4 Urine Color Yellow Urine Clarity Clear Urine pH 6.5 Ur Specific [place] 1.010 Urine Protein Negative Urine Ketones Negative Urine Blood Negative Urine Nitrite Negative Urine Bilirubin Negative Urine Urobilinogen 0.2 Ur Leukocyte Esterase Negative Urine RBC 0-2 Urine WBC 3-5 Ur Epithelial Cells Negative Urine Crystals Negative Urine Bacteria Negative Urine Casts Negative Urine Mucus Negative Ur Culture Indicated? No Urine Glucose >=1000 H Time Spent with Patient Time Spent with Patient: 25-34 minutes Time was spent: preparing to see the patient(eg.review tests), obtaining and/or reviewing separately otained hiistory, ordering medications,tests, procedures, referring, communicating with other health lawn care professional, indepentently int erpreting results, counseling the patient and care coordination
[2024-06-05] MEDS: valACYclovir 500 MG TAB PO ×3 (08:40→20:21)
[2024-06-05] MEDS: Gadoterate meglumine 20 ML SYRINGE 18 ML IVP (08:55)
--- NOTE | 2024-06-05 08:57 | PDOC.CMIN ---
Date of service: 06/05/24 Time of Service: 08:57 Care Management Initial Assmt Initial Assessment Reason for Hospitalization: AMS, Ataxia Functional Status/Living Situation Patient Presentation: Jefry was lying in bed, visiting with his when CM met with him. Pt shares that he is glad he is admitted, and reports that he tends to over do it at home. Jefry has not returned to work since he was last hospitalized with pneumonia. He has has followed up with his PCP twice since his last hospitalization and his PCP is managing his work leave. Town of Residence: [place] Resides with: Spouse ( Luz Elena) Significant Other/Family: Local Employment Status: Employed ([employer]) Instrumental Activities of Daily Living (ADLs): Independent Medications Medication Management: No Issues/Barriers identified Physical Functioning/Mobility Assistive Device: None Advance Directives Advance Directives: Do you have an Advance Directive: N 06/08/13 12:44 AD On File at [facility]: N 05/28/13 14:23 Date Asked 06/04/24 06/04/24 14:50 AD Date Reviewed COLST On File at [facility] COLST Date Scanned Code Status Resuscitation Status Full Code Insurance Coverage/Financial Issues Insurance: BC/BS of [place] Financial Issues: None identified. Care Team Visit Care Team Role Provider Type Kade Higuera Primary Care Provider NON-[facility] STAFF PHYSICIAN Eliud Gil DO Emergency Provider [facility] STAFF PHYSICIAN Jefry Waters DO Admit Provider [facility] STAFF PHYSICIAN Attending Provider Discharge Potential Discharge Needs: PCP F/U Appt Anticipated Barriers to Discharge: Medical Status Patient/Family Education Needs: Review discharge instructions, discuss Ask Me Three Transportation: Private vehicle Plan: Jefry requires further medical work up to determine the cause of his AMS and Ataxia. Awaiting PT recommendations. Anticipate, pt will discharge home when medically ready for discharge with a plan to follow up with Primary Care, Neurology and other community providers, as needed. Discharge planning continues. CM will follow. PFSH All Active Problems (Updated 06/04/24 @ 19:13 by Jefry Waters DO) Herpes simplex disease (Acute) Ataxia (Acute) Mental status alteration (Acute) Confusion (Acute) Hamstring tightness of both lower extremities (Acute) Patellar tendinitis of both knees (Acute) Left knee pain (Acute) Right knee pain (Acute) Paresthesias (Acute) Corns and callosities (Acute) Hemangioma (Acute) Tubular adenoma (Acute ~07/2023) Screen for colon cancer (Acute) Atypical pigmented skin lesion (Acute) Colon adenomas (Acute) 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) [place]-Schlatter's disease (Acute) Hyperlipidemia (Acute) Sensorineural hearing loss (SNHL) of right ear with unrestricted hearing of left ear (Acute) Pain of right patellofemoral joint (Chronic) Depo-Medrol injection: 04/27/2024 Pain of left patellofemoral joint (Chronic) Depo-Medrol injection: 04/27/2024 Primary hypoadrenalism (Acute) Dysthymic disorder (Acute) HTN (hypertension) (Chronic) Insulin dependent type 2 diabetes mellitus (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 Gross hematuria BMI 28.0-28.9,adult Lower urinary tract symptoms (LUTS) Balanitis Concussion Seborrheic keratosis Exposure to hepatitis B Lower urinary tract infection Obesity Surgical History History of removal of nevus Hx of laparoscopic gastric banding (~12/25/10) 2009 colonoscopy (~07/2023) path sent Social History Smoking/Tobacco Use Status: Never Smoking risk assessment performed?: Yes Alcohol Intake: current Alcohol Intake frequency: holidays/special occasions only Drug use: Never Substance use type: does not use Household members: spouse and children Housing: house Number of Children: 1 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 Do you feel safe at home: Yes Do you feel safe in your relationship?: Yes Readmission Within the Past 30 Days Yes or No: Yes Date of First Admission Date of 1st Admission: 05/20/24 Date of this Admission Date of Admission: 06/04/24 This admission was: Through ED Office Visit Since 1st Admission Have you seen your PCP in the office since discharge?: Yes Date of PCP Appointment: 05/25/24 Had an appointment Been Scheduled?: Yes Date of Scheduled Appointment: 05/25/24 Speicalist Appointments Have you seen any other specialist since your 1st Admission?: No ED visits How many ED visits in the past 12 months: 2 Assessment for Readmission Summary of readmission circumstances, based upon interviews: Per MD documentation Neurology believes this is related to the patient's recent admission for pneumonia. Requires further medical work up and labs. SDOH(Care Management) Screening Will the Patient Participate in the Screening?: Declined to provide Anticipated HH Services Anticipated HH Services at Discharge [facility] (Awaiting PT recommendations.).
[2024-06-05] MEDS: Insulin Glargine 300 UNITS/3 ML PEN 20 UNITS SC (09:59)
--- NOTE | 2024-06-05 14:43 | PHA.REVIEW2 ---
Pharmacy Admission Review Admission Clinical Review Admission Pharmacy Review: Herpes simplex disease (Acute) Ataxia (Acute) Mental status alteration (Acute) Confusion (Acute) Insulin dependent type 2 diabetes mellitus (Acute) ENVIRONMENTAL/DOGS/CATS Allergy (Mild, Uncoded 06/04/24 14:46) ITCHY WATERY EYES Resuscitation Status Full Code Height 5 ft 10 in Weight 87.543 kg Pharmacy Admission Review Renal Dosing Renal Dosing: BUN 11 mg/dL (7-18) 06/05/24 06:20 Creatinine 0.8 mg/dL (0.70-1.30) 06/05/24 06:20 Medications needing adjustments: Reviewed (CrCl 92.41 mL/min) List of meds needing interventions: Current medications are okay Anticoagulation Anticoagulation: Hgb 12.4 g/dL (13.5-17.5) L 06/05/24 06:20 Hct 36.6 % (40.0-50.0) L 06/05/24 06:20 Plt Count 328 10^3/uL (130-400) 06/05/24 06:20 Creatinine 0.8 mg/dL (0.70-1.30) 06/05/24 06:20 DVT Prophylaxis: Reviewed (hgb decreased from 13.9) Medications: Enoxaparin (40mg daily) Relevant Labs Relevant Labs: ESR 25 mm/hr (0-20) H 06/04/24 15:10 Sodium 145 mmol/L (136-145) 06/05/24 06:20 Potassium 3.7 mmol/L (3.5-5.1) 06/05/24 06:20 Chloride 108 mmol/L (98-107) H 06/05/24 06:20 Magnesium 1.9 mg/dL (1.8-2.4) 06/04/24 15:10 C-Reactive Protein < 0.50 mg/dL (<or=0.5) 06/04/24 15:10 Electrolytes, C-Reactive P, ESR: Reviewed DM Control DM Control: Glucose 80 mg/dL (74-106) 06/05/24 06:20 Finger Stick Blood Glucose 103 1123 Finger Stick Blood Glucose 103 1123 Finger Stick Blood Glucose 98 0959 Finger Stick Blood Glucose 93 0800 Finger Stick Blood Glucose 93 0800 DM Control: Reviewed Insulin Dosing, Diabetic Medication: Patient has order for glargine 20 units daily, glipizide CR 2.5mg daily and Jardiance 25mg daily Cardiac Review Cardiac Review: Troponin I Cancelled 06/04/24 18:11 BP, HR, EF%: Reviewed (BP and HR WNL) QTc Review QTc: Reviewed (437 from 06/04/24) IV to PO Switch IV Medications: Reviewed Home Meds Home Med List reviewed: Intervened Relevent Home Meds Not ordered & why?: metformin (on hold per H+P) Took cefpodoxime off of home med list (see below) Current Meds Current Medication Order Review: Intervened Comments: Order was put in for cefpodoxime from home med list. Patient was given a 6 day supply that was filled on 05/21/24 per external fill history. Spoke with provider during morning meeting about this having been completed outpatient. Provider said it should not have been ordered and asked that it be discontinued which I did. Pharmacy Antibiotic Review Relevant Labs: Relevant Labs 06/04/24 15:10 C-Reactive Protein < 0.50
[2024-06-05 15:10] VITALS: BP 162/86; PULSE 62; RESP 18; TEMP 36.4; O2SAT 100
[2024-06-05 20:02] VITALS: BP 151/86; PULSE 71; RESP 17; TEMP 36.7; O2SAT 94
[2024-06-05] MEDS: Enoxaparin 40 MG/0.4 ML SYR SC (20:21)
[2024-06-05] MEDS: Vitamins B Comp w/C TAB 1 TAB PO (20:21)
[2024-06-05] MEDS: Nystatin CREAM 30 GM TUBE TP (21:22)
[2024-06-05 22:32] LABS: Vitamin B12 402 pg/mL (193-986)
[2024-06-06 02:36] VITALS: BP 139/91; PULSE 66; RESP 18; TEMP 36.1; O2SAT 97
[2024-06-06 06:29] LABS: Abs Immature Grans 0.01 10^3/uL (0.0-0.06); Absolute Basophil Count 0.06 10^3/uL (0.0-0.2); Absolute Eosinophil Count 0.16 10^3/uL (0.0-0.7); Absolute Lymphocyte Count 2.37 10^3/uL (1.2-3.4); Absolute Monocyte Count 0.49 10^3/uL (0.1-0.8); Absolute Neutrophil Count 1.88 10^3/uL (1.2-6.7); Basophils % 1.2 %; Eosinophils % 3.2 %; HCT 37.2 % (40.0-50.0); HGB 12.8 g/dL (13.5-17.5); Immature Grans % 0.2 %; Lymphocytes % 47.7 %; MCH 31.6 pg (27.0-33.0); MCHC 34.4 % (32.0-36.0); MCV 92 fL (80-95); MPV 8.6 fL (8.0-11.0); Monocytes % 9.9 %; Neutrophils % 37.8 %; Platelet Count 337 10^3/uL (130-400); RBC 4.05 10^6/uL (4.36-5.78); RDW 12.5 % (11.8-14.1); RDW-SD 41.5 fL; WBC 4.97 10^3/uL (4.4-10.8)
[2024-06-06 06:52] LABS: ALT 20 U/L (16-63); AST 20 U/L (15-37); Alkaline Phosphatase 47 U/L (46-116); Anion Gap 7.6 mmol/L (3-11); BUN 10 mg/dL (7-18); Bilirubin, Total 0.31 mg/dL (0.2-1.0); CO2 28.4 mmol/L (21.0-32.0); CREATININE 0.8 mg/dL (0.70-1.30); Calcium 8.5 mg/dL (8.5-10.1); Chloride 108 mmol/L (98-107); Estimated GFR 98.83 (mL/min/1.73m2); Glucose 115 mg/dL (74-106); Potassium 3.8 mmol/L (3.5-5.1); Sodium 144 mmol/L (136-145); Total Protein 6.6 g/dL (6.4-8.2)
[2024-06-06 07:29] VITALS: BP 125/75; PULSE 67; RESP 19; TEMP 36.7; O2SAT 96
[2024-06-06] MEDS: Vitamins B Comp w/C TAB 1 TAB PO (08:36)
[2024-06-06] MEDS: valACYclovir 500 MG TAB PO (08:36)
[2024-06-06] MEDS: Tamsulosin 0.4 MG CAPCR PO (08:36)
[2024-06-06] MEDS: Meloxicam 15 MG TAB PO (08:36)
[2024-06-06] MEDS: FLUoxetine 20 MG CAP 40 MG PO (08:36)
[2024-06-06] MEDS: Empaglifozin 25 MG TAB PO (08:36)
[2024-06-06] MEDS: Normal Saline Flush 10 ML SYR IVP (08:37)
[2024-06-06] MEDS: Nystatin CREAM 30 GM TUBE TP (08:37)
[2024-06-06] MEDS: Insulin Glargine 300 UNITS/3 ML PEN 20 UNITS SC (08:37)
--- NOTE | 2024-06-06 09:22 | PT.INIE ---
PT Notes Visit Reasons: Mental status change, ataxia, loss of memory Physical Therapy Initial Evaluation Date: 06-06-2024 Referring Doctor: Dr. Waters PT Orders: PT CONSULT: safety consult for discharge Precautions: Standard Patient Profile/Admitting Diagnosis: Patient is 63-year-old male presented to the ED with ataxia and confusion. Patient with recent diagnosis of herpes simplex to the ear. PMHX: Herpes simplex disease (Acute) Ataxia (Acute) Mental status alteration (Acute) Confusion (Acute) Hamstring tightness of both lower extremities (Acute) Patellar tendinitis of both knees (Acute) Left knee pain (Acute) Right knee pain (Acute) Paresthesias (Acute) Corns and callosities (Acute) Hemangioma (Acute) Tubular adenoma (Acute ~07/2023) Screen for colon cancer (Acute) Atypical pigmented skin lesion (Acute) Colon adenomas (Acute) 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) [place]-Schlatter's disease (Acute) Hyperlipidemia (Acute) Sensorineural hearing loss (SNHL) of right ear with unrestricted hearing of left ear (Acute) Pain of right patellofemoral joint (Chronic) Depo-Medrol injection: 4Pain of left patellofemoral joint (Chronic) Depo-Medrol injection: 4Primary hypoadrenalism (Acute) Dysthymic disorder (Acute) HTN (hypertension) (Chronic) Insulin dependent type 2 diabetes mellitus (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Gross hematuria BMI 28.0-28.9,adult Lower urinary tract symptoms (LUTS) Balanitis Concussion Seborrheic keratosis Exposure to hepatitis B Lower urinary tract infection Obesity Surgical History History of removal of nevus Hx of laparoscopic gastric banding (~12/25/10) 2009 colonoscopy (~07/2023) path sent Social History/Home Situation: lives with in single family home with 4 EDIS with rail and flight of stairs with rail to his bedroom. 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 Since then he has had fatigue and intermittent confusion . 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 Equipment Owned/DME: none Subjective: Pt. reports he is feeling much better than he did when he came to the ED. He reports he was unable to remember names of his students on that day and now he can recite their names. He states he knows he is having memory issues which is new for him. He states he is going home at 3pm today after his gets out of work. Objective: General Observation: awake male seated in chair texting on his phone when approached for PT . Pt agreeable to participate in evaluation Mental Status: A and oriented x 4, word finding deficits , STM deficits noted Pain: DENIES ROM: Right Upper Extremity: WNL Left Upper Extremity: WNL Right Lower Extremity:wnl Left Lower Extremity: WNL Strength: Right Upper Extremity: 5/5 Left Upper Extremity: 5/5 Right Lower Extremity: hips 4/5 knee 5/5, ankle 5/5 Left Lower Extremity: hip 4/5 knee 5/5, ankle 5/5 Sensation: intact Bed Mobility/Transfers: Independent without device bed mobility, transfers bed, toilet, chair. Gait: Independent ambulation 900 feet without device level surfaces with multiple turns and directional changes. Stairs Independent 5 steps with 1 rail Balance: Static Sitting: Normal Dynamic Sitting: Normal Static Standing:Normal Dynamic Standing: Normal Special Tests: 4 STAGE BALANCE TEST: Feet together 10 seconds 1/2 Stance 10 seconds Tandem stance 10 seconds Single leg stance left 10 seconds, right 10 seconds FELIPE/56 Mobility Limitations Standardized Measure [facility] AM-PAC 6 clicks Basic Mobility Inpatient Short Form: Raw Score: 24 CMS Score: 0 % Informed Consent/Education: Patient instructed in purpose of PT consult. Assessment: Pt is 63 yo male referred to PT for Safety Consult for discharge. Pt demonstrates independence with bed mobility , transfers, ambulation on level surfaces and stairs without railing. Pt scored 54 /56 on Felipe balance assessment with deficit if forward reach and standing on one foot. Pt demonstrates short term memory deficits. some word finding difficulties noted as well. Pt does not demonstrate ataxia which he was noted to have on presentation to ED. Pt with decreased speed to maintain accuracy with Luann of UE and LE. Pt is safe for discharge to home with recommendation for outpatient cognitive/ memory assessment and PT. Skilled PT services not indicated within this setting. Patient is assessed as a moderate complexity based on the following: History: 63-year-old male with impairment level findings, functional limitations, and past medical history as indicated above Examination: Demonstrable impairment in strength, balance, and mobility level with underlying impairments and functional limitations as documented above Presentation: stable Decision Making: moderate Goals: N/A. Plan of Care/Treatment Plan: N/A. DISCHARGE RECOMMENDATIONS: Home with outpatient PT for high level balance TREATMENT CODE/TIME: 68186 x 29 mins for 1 unit/ [id number] Thank you for the opportunity to participate in the care of this patient. Please sign an return this page within 30 days if you agree with the above POC. Thank you! Physician Signature Date [facility]
--- NOTE | 2024-06-06 09:32 | PDOC.CMPRO ---
Date of service: 06/06/24 Time of Service: 09:32 Care Management Progress Note Discharge Potential Discharge Needs: PCP F/U Appt Anticipated Barriers to Discharge: None Identified Patient/Family Education Needs: Review discharge instructions, discuss Ask Me Three Transportation: Private vehicle Plan: Anticipate, Rob will discharge home with no new services when medically ready for discharge. He will follow up with Primary Care, Neurology and other community providers, as needed and transport with family. CM will follow and continue to support discharge planning.. SDOH(Care Management) Screening Will the Patient Participate in the Screening?: Declined to provide
--- NOTE | 2024-06-06 12:20 | DSE_ITS ---
Date of service: 06/06/24 Time of Service: 12:21 DS: Diagnosis Discharge Diagnosis (1) Confusion: Status: Acute Asessment and Plan: Resolved (2) Ataxia: Status: Acute Asessment and Plan: Resolved (3) Mental status alteration: Status: Acute Asessment and Plan: Improved (4) Herpes simplex disease: Status: Acute Asessment and Plan: Continues active. Patient recommended to continue his outpatient antiviral medication (5) Bilateral primary osteoarthritis of hip: Status: Resolved Asessment and Plan: Continue pain medication (6) HTN (hypertension): Status: Chronic Asessment and Plan: Continue hypertension medication (7) Insulin dependent type 2 diabetes mellitus: Status: Acute Asessment and Plan: Continue insulin and diabetic medications (8) Tinea cruris: Status: Acute Asessment and Plan: Continue antifungal Discharge Plan Disposition Patient Disposition: Home Condition: Good Discharge Details Reason For Visit: Mental status change, ataxia, loss of memory Admit Date/Time: 06/04/24 18:48 Admit Provider: Jefry Waters Attending Provider: Jefry Waters Primary Care Provider: Kade Higuera Hospital Course Hospital Course: Admitted with memory issues, fatigue, episodic difficulty with balance. Recent diagnosis of PCR + HSV of R EAM. Patient had ? that the antiviral might be causing his symptoms. He was not eating regularly and taking PO fluids since his discharge from recent [facility] due to pneumonia/sepsis. MRI showed increased flair in the [place] area, otherwise some small vessel ischemic changes. Patient was evaluated by telemetry neurology in the emergency department. Last evening, I reviewed his MRI with teleneurology who reviewed the images. They had no additional recommendations other than checking vitamin B12 level and from their standpoint no intervention needed to be pursued and from their standpoint the patient to be discharged. Vitamin B12 level was requested as well as West Nile virus serology. Vitamin B12 level was over 400 On the day of discharge, the patient continued to experience symptomatic improvement. He no longer has the issues as prominent with respect to difficulty with balance and he believes his memory issues are better. At the time of discharge, the patient is urged to continue his antiviral medication until completed and to take a vitamin B complex daily. This is discussed with both the patient and his present by cell phone. Home Meds and New Rx's Prescriptions: Continued tamsulosin 0.4 mg Capsule 0.4 mg PO DAILY insulin glargine [Lantus Solostar U-100 Insulin] 100 unit/mL (3 mL) insulin pen 20 unit subcut .QD empagliflozin 25 mg tablet 25 mg PO DAILY gabapentin 100 mg capsule See Rx Instructions PO QHS PRN Rx Instructions: orally every day at bedtime PRN; orally every day at bedtime; 1-3 tabs; cyclobenzaprine 5 mg tablet See Rx Instructions PO TID PRN Rx Instructions: 1-2 tabs orally three times a day PRN; glipizide 2.5 mg tablet extended release 24hr 2.5 mg PO DAILY meloxicam 15 mg tablet See Rx Instructions .ROUTE .COMPLEX Qty: 30 2RF Dose Instruction: TAKE ONE TABLET BY MOUTH EVERY DAY Rx Instructions: TAKE ONE TABLET BY MOUTH EVERY DAY fluoxetine 40 MG capsule 40 mg PO DAILY metformin 500 mg tablet extended release 24 hr 1,500 mg PO DAILY albuterol sulfate 90 mcg/actuation HFA aerosol inhaler 3 puff inhalation QID MDD 3 puffs every 4 hours PRN (Reason: shortness of breath or wheezing) Qty: 6.7 0RF Discharge Instructions Referrals: Kade Higuera [Primary Care Provider] - (Do not return to work until cleared by Dr. Higuera) Activity:: Activity as Tolerated Equipment/Supplies:: No Equipment Needed Diet:: Carb Counting Discharge Orders Discharge Orders: Discharge Order (Routine); Ordered 06/06/24 Ordered By: Jefry Waters DS: Summary Time Spent with Patient providing and/or coordinating discharge services: Greater than 30 minutes Status at Discharge Functional status at discharge: independent ambulation Overall status at discharge: patient is back to baseline Mental Status: mental status grossly normal Speech and Movement: speech and movement normal Mood: congruent mood Affect: normal affect Quality:SDOH Health Related Social Needs: No Data to Display Exam Narrative Exam Narrative: Patient is examined in the Med surg floor. is at the bedside. Patient appears comfortable on RA. Exam is essentially without change at this time. Patient is alert and oriented x 3 and in no acute distress HEENT: Neck supple, MM pink, dry and pasty, conjunctiva non-injected, sclera non-icteric, Pupils equal and reactive to light symmetrically, no JVD, no A waves. No thyromegaly. No carotid bruit CHEST: Bilaterally symmetrical with inspiration and expiration. No use of accessory muscles of respiration. No nasal flaring. RESP: Clear BS bilaterally, no rhonchi, no wheeze, no rales. COR: heart tones distant, RRR normal S1S2, no rub or gallop ABDOMEN: Soft, non tender diffusely, normally active bowel sounds diffusely, No hepatosplenomegaly, No abdominal bruit, no masses, no tenderness on deep abdominal palpation. Left lateral epigastric region notable for subcutaneous device which is a Lap-Band pump. Pocket appears clear of any type of complication or infection. G/U: deferred Rectal: deferred MUSCULOSKELETAL: Bilaterally symmetrical, no muscle belly tenderness or mass DERMIS: Skin warm and dry, no ulcers or rashes, EXTREMITIES: No cyanosis, clubbing or edema, no gross deformities of the large or small joints of the upper or lower extremities. NEUROLOGICAL: Cranial nerves intact II-XII without notable deficit, No peripheral neurosensory or motor deficits noted. Gait was not examined. [id number] intact. Patient is able to count backwards by serial sevens, patient appears at cognitive baseline without deficit. LYMPH: No anterior or posterior cervical, no supraclavicular, No axillary, no epitrochlear or femoral lymphadenopathy. Psych Mental Status: mental status grossly normal Speech and Movement: speech and movement normal Mood: congruent mood Affect: normal affect DS: Data Vitals/I&O Vitals and I&O: Vital Signs Temperature 36.7 C 06/06/24 07:29 Temperature Source Temporal Artery Scan 06/06/24 07:29 Pulse 67 06/06/24 07:29 Pulse Rhythm Regular 06/04/24 20:39 Pulse 88 06/04/24 19:10 Respiratory Rate 19 06/06/24 07:29 Respiratory Effort Normal 06/04/24 20:39 Respiratory Depth Normal 06/04/24 20:39 Respiratory Pattern Normal 06/04/24 20:39 Blood Pressure 125/75 06/06/24 07:29 Blood Pressure Mean 110 06/04/24 18:46 Pulse Oximetry 96 06/06/24 07:29 Oxygen Delivery Method Room Air 06/06/24 07:29 Oxygen Flow Rate 0 06/06/24 07:29 Pain Level 0 06/06/24 02:36 Intake & Output 06/05/24 06/06/24 06/06/24 23:59 11:59 23:59 Intake Total 250 / 650 300 / 300 Output Total 1850 / 3050 1000 / 1000 Balance -1600 / -2400 -700 / -700 Intake: Oral 250 / 650 300 / 300 Output: Urine 1850 / 3050 1000 / 1000 Other: Urine Color Yellow Yellow Urine Appearance Clear Clear Data Completed and Pending Labs on day of discharge: Labs from last 24 hours 06/06/24 06/05/24 06/05/24 06:10 21:58 06:20 WBC 4.97 RBC 4.05 L Hgb 12.8 L Hct 37.2 L MCV 92 MCH 31.6 MCHC 34.4 RDW 12.5 Plt Count 337 MPV 8.6 Immature Gran % 0.2 Neutrophils % 37.8 Lymphocytes % 47.7 Monocytes % 9.9 Eosinophils % 3.2 Basophils % 1.2 Nucleated RBC % 0.0 Absolute Neutrophils 1.88 Absolute Lymphocytes 2.37 Absolute Monocytes 0.49 Absolute Eosinophils 0.16 Absolute Basophils 0.06 Sodium 144 Potassium 3.8 Chloride 108 H Carbon Dioxide 28.4 Anion Gap 7.6 BUN 10 Creatinine 0.8 Est GFR (CKD-EPI 2020) 98.83 Glucose 115 H Calcium 8.5 Total Bilirubin 0.31 AST 20 ALT 20 Alkaline Phosphatase 47 Total Protein 6.6 Albumin 3.0 L Vitamin B12 402 [place] Virus IgG Ab Pending West [place] Virus IgM Ab Pending West Nile Interp Pending PFSH All Active Problems Tinea cruris (Acute) Herpes simplex disease (Acute) Ataxia (Acute) Mental status alteration (Acute) Confusion (Acute) Hamstring tightness of both lower extremities (Acute) Patellar tendinitis of both knees (Acute) Left knee pain (Acute) Right knee pain (Acute) Paresthesias (Acute) Corns and callosities (Acute) Hemangioma (Acute) Tubular adenoma (Acute ~07/2023) Screen for colon cancer (Acute) Atypical pigmented skin lesion (Acute) Colon adenomas (Acute) 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) [place]-Schlatter's disease (Acute) Hyperlipidemia (Acute) Sensorineural hearing loss (SNHL) of right ear with unrestricted hearing of left ear (Acute) Pain of right patellofemoral joint (Chronic) Depo-Medrol injection: 04/27/2024 Pain of left patellofemoral joint (Chronic) Depo-Medrol injection: 04/27/2024 Primary hypoadrenalism (Acute) Dysthymic disorder (Acute) HTN (hypertension) (Chronic) Insulin dependent type 2 diabetes mellitus (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 Gross hematuria BMI 28.0-28.9,adult Lower urinary tract symptoms (LUTS) Balanitis Concussion Seborrheic keratosis Exposure to hepatitis B Lower urinary tract infection Obesity Surgical History History of removal of nevus Hx of laparoscopic gastric banding (~12/25/10) 2009 colonoscopy (~07/2023) path sent Social History Smoking/Tobacco Use Status: Never Smoking risk assessment performed?: Yes Alcohol Intake: current Alcohol Intake frequency: holidays/special occasions only Drug use: Never Substance use type: does not use Household members: spouse and children Housing: house Number of Children: 1 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 Do you feel safe at home: Yes Do you feel safe in your relationship?: Yes Time Spent with Patient Time Spent with Patient: <45 minutes Time was spent: preparing to see the patient(eg.review tests), obtaining and/or reviewing separately otained hiistory, ordering medications,tests, procedures, referring, communicating with other health career development engineer, indepentently interpreting results, counseling the patient and care coordination
--- NOTE | 2024-06-06 13:26 | CMDISCH_ITS ---
Date of service: 06/06/24 Time of Service: 13:26 LACE Index Scoring Tool Questions: Length of Stay (in days): 2 Was the patient admitted via the E.D.?: Yes Comorbidities: Diabetes w/o Complication E.D. Visits: 2 Answers: Total Score: 8 Risk of Readmission: Low Risk Care Management Discharge Plan Reason for Hospitalization: AMS Discharge Plan: Jefry will be discharged home with no new services. He will follow up with his PCP and plan of care and transport with his . Patient/Family Education Needs: Review discharge instructions, limitations, follow up plan, discuss Ask Me Three [facility] Health Related Social Needs: No Data to Display
[2024-06-11 16:24] LABS: West Nile Virus Ab, IgM Negative (Negative)
== END 2024-06-06 15:06 | disposition home or self-care (01) ==
LOC: ER 14:52 → MS 20:10
PROVIDERS: Emergency Medicine; Admitting Provider Internal Medicine; Emergency Provider Student in an Organized Health Care Education/Training Program; PCP Student in an Organized Health Care Education/Training Program; Visit Provider Internal Medicine
DX: R41.0 Disorientation, unspecified (principal); R26.0 Ataxic gait; B00.9 Herpesviral infection, unspecified; E11.40 Type 2 diabetes mellitus with diabetic neuropathy, unspecified; Z79.4 Long term (current) use of insulin; N40.0 Benign prostatic hyperplasia without lower urinary tract symptoms; M54.9 Dorsalgia, unspecified; J45.909 Unspecified asthma, uncomplicated; F32.A Depression, unspecified; M92.523 Juvenile osteochondrosis of tibia tubercle, bilateral; E27.1 Primary adrenocortical insufficiency; M47.26 Other spondylosis with radiculopathy, lumbar region; M16.0 Bilateral primary osteoarthritis of hip; B35.6 Tinea cruris; R41.3 Other amnesia
CPT/HCPCS: 00123; 36415; 36416; 70496; 70498; 70553; 80048; 80053; 82962; 85652; 86631; 86632; 93005; 96372; 97162; 99285; J1650; 71045; 81003; 81015; 82607; 83735; 84439; 84443; 84484; 85025; 86140; 86788; 86789; 93010; 99222; 99231; 99239; G0378; J1815; J3490

== ENCOUNTER 2024-08-18 13:46 | Outpatient (CLI) | payer BC, SELFPAY ==
--- NOTE | 2024-08-18 14:19 | DI.RAD_ITS ---
Exam(s) XR CHEST 2V PA LATERAL EXAM: XR CHEST 2V PA LATERAL CLINICAL HISTORY: eval pna. TECHNIQUE: 2D digital imaging was performed. COMPARISON: No exams were available for comparison FINDINGS: 2 views: Heart size is normal. The mediastinum is not widened. Lungs are clear. No infiltrates nor pleural effusions. IMPRESSION: No acute pulmonary findings. DATA REPOSITORY: RADIATION DOSE DELIVERED:
--- NOTE | 2024-08-18 15:12 | DI.VRAD_ITS ---
PROCEDURE INFORMATION: Exam: XR Chest Exam date and time: 08/18/2024 2:10 PM Age: 63 years old Clinical indication: Other: HX of pneumonia, evaluation of new pneumonia infection TECHNIQUE: Imaging protocol: Radiologic exam of the chest. Views: 2 views. COMPARISON: CR XR PORTABLE CHEST AP 06/04/2024 5:20 PM FINDINGS: Lungs: Unremarkable. No consolidation. Pleural spaces: Unremarkable. No pleural effusion. No pneumothorax. Heart/Mediastinum: Unremarkable. No cardiomegaly. Bones/joints: Unremarkable. IMPRESSION: No acute abnormality evident in the chest. Dictated and Authenticated by: Leticia Gates MD. Ordering:LAMBERT Oakley MD
== END 2024-08-18 14:06 ==
LOC: DI 13:53
PROVIDERS: PCP Student in an Organized Health Care Education/Training Program; Visit Provider Nurse Practitioner Family
DX: R05.9 Cough, unspecified (principal)
CPT/HCPCS: 71046

== ENCOUNTER 2024-11-13 16:44 | Outpatient (REF) | payer BC, SELFPAY ==
[2024-11-13 20:38] LABS: COMMENT (LAB VIEW ONLY) 293.76 mg/dL; Microalb ug/mg Crea 9.2 ug/mg Cr
== END 2024-11-13 16:45 | disposition home or self-care (01) ==
LOC: NCHCN 16:44
PROVIDERS: PCP Student in an Organized Health Care Education/Training Program; Visit Provider Student in an Organized Health Care Education/Training Program
DX: E11.9 Type 2 diabetes mellitus without complications (principal)
CPT/HCPCS: 82043; 82570

== ENCOUNTER 2025-01-03 12:55 | Outpatient (CLI) | payer BC, SELFPAY ==
[2025-01-03 22:43] LABS: PSA, Screening 0.6 ng/mL (<=4.5)
== END 2025-01-03 12:56 | disposition home or self-care (01) ==
LOC: LBO 12:55
PROVIDERS: PCP Student in an Organized Health Care Education/Training Program; Visit Provider Nurse Practitioner Gerontology
DX: R39.9 Unspecified symptoms and signs involving the genitourinary system (principal)
CPT/HCPCS: 36415; 84153

== ENCOUNTER 2025-01-04 17:14 | Outpatient (REF) | payer BC, SELFPAY ==
[2025-01-04 15:43] LABS: Abs Immature Grans 0.02 10^3/uL (0.0-0.06); Absolute Basophil Count 0.06 10^3/uL (0.0-0.2); Absolute Eosinophil Count 0.34 10^3/uL (0.0-0.7); Absolute Monocyte Count 0.44 10^3/uL (0.1-0.8); Absolute Neutrophil Count 2.94 10^3/uL (1.2-6.7); Eosinophils % 5.9 %; HCT 37.6 % (40.0-50.0); Immature Grans % 0.3 %; Lymphocytes % 34.5 %; MCH 31.2 pg (27.0-33.0); MCHC 34.6 % (32.0-36.0); MCV 90 fL (80-95); MPV 9.1 fL (8.0-11.0); Monocytes % 7.6 %; Neutrophils % 50.7 %; Platelet Count 333 10^3/uL (130-400); RBC 4.17 10^6/uL (4.36-5.78); RDW-SD 39.6 fL
[2025-01-04 16:33] LABS: ALT 38 U/L (16-63); AST 28 U/L (15-37); Albumin 3.6 g/dL (3.4-5.0); Alkaline Phosphatase 58 U/L (46-116); Anion Gap 8.3 mmol/L (3-11); BUN 15 mg/dL (7-18); Bilirubin, Total 0.5 mg/dL (0.2-1.0); CO2 28.7 mmol/L (21.0-32.0); Calcium 9.3 mg/dL (8.5-10.1); Chloride 106 mmol/L (98-107); Estimated GFR 83.52 (mL/min/1.73m2); Glucose 111 mg/dL (74-106); Potassium 3.7 mmol/L (3.5-5.1); Sodium 143 mmol/L (136-145); TSH (W/Ref FT4) 3.51 uIU/mL (0.36-3.74); Total Protein 6.7 g/dL (6.4-8.2)
== END 2025-01-04 17:15 | disposition home or self-care (01) ==
LOC: NCHCN 17:14
PROVIDERS: PCP Student in an Organized Health Care Education/Training Program; Visit Provider Student in an Organized Health Care Education/Training Program
DX: R41.89 Other symptoms and signs involving cognitive functions and awareness (principal)
CPT/HCPCS: 80053; 84443; 85025

== ENCOUNTER 2025-01-18 01:06 | Outpatient (CLI) | payer BC, SELFPAY ==
[2025-01-18 12:09] LABS: Ferritin 65 ng/mL (26-388); Folate > 20.0 ng/mL (8.6-20.0); Vitamin B12 361 pg/mL (193-986)
[2025-01-18 12:16] LABS: Iron 107 ug/dL (65-175); Total Iron Binding Capacity 265 ug/dL (250-450); Transferrin Sat 40 % (20-55)
[2025-01-21 12:36] LABS: Albumin 60.6 % (55.8-66.1); Albumin g/dL 3.9 g/dL (3.6-5.2); Total Protein 6.4 g/dL (6.3-8.2)
== END 2025-01-18 01:07 | disposition home or self-care (01) ==
PROVIDERS: PCP Student in an Organized Health Care Education/Training Program; Visit Provider Student in an Organized Health Care Education/Training Program
DX: D64.9 Anemia, unspecified (principal)
CPT/HCPCS: 36415; 82607; 82728; 82746; 83540; 83550; 84165

== ENCOUNTER 2025-07-24 12:08 | Outpatient (REF) | payer BC, SELFPAY ==
[2025-07-24 17:15] LABS: Abs Immature Grans 0.01 10^3/uL (0.0-0.06); HCT 38.0 % (40.0-50.0); HGB 12.6 g/dL (13.5-17.5); Immature Grans % 0.2 %; MCH 31.0 pg (27.0-33.0); MCHC 33.2 % (32.0-36.0); MCV 93 fL (80-95); MPV 9.2 fL (8.0-11.0); Platelet Count 336 10^3/uL (130-400); RBC 4.07 10^6/uL (4.36-5.78); RDW 12.0 % (11.8-14.1); RDW-SD 41.5 fL; WBC 5.67 10^3/uL (4.4-10.8)
[2025-07-24 17:37] LABS: TSH (W/Ref FT4) 2.53 uIU/mL (0.55-4.78); Vitamin D 25 Total 36 ng/mL (30-100)
[2025-07-24 17:46] LABS: ALT 16 U/L (10-49); AST 21 U/L (<34); Albumin 4.0 g/dL (3.2-5.0); Alkaline Phosphatase 46 U/L (46-116); Anion Gap 9.2 mmol/L (3-11); BUN 12 mg/dL (9-23); Bilirubin, Total 0.5 mg/dL (0.2-1.2); CO2 28.8 mmol/L (20.0-31.0); Calcium 9.1 mg/dL (8.3-10.6); Chloride 107 mmol/L (98-107); Glucose 122 mg/dL (74-106); Potassium 4.1 mmol/L (3.5-5.1); Sodium 145 mmol/L (136-145); Total Protein 6.4 g/dL (5.7-8.2)
== END 2025-07-24 12:09 | disposition home or self-care (01) ==
LOC: NCHCN 12:08
PROVIDERS: PCP Student in an Organized Health Care Education/Training Program; Visit Provider Student in an Organized Health Care Education/Training Program
DX: R53.83 Other fatigue (principal); E55.9 Vitamin D deficiency, unspecified
CPT/HCPCS: 80053; 82306; 84443; 85025

== ENCOUNTER 2025-07-26 12:27 | Outpatient (REF) | payer BC, SELFPAY ==
[2025-07-27 11:31] LABS: Campylobacter PCR Negative (Negative); Shiga Toxin PCR Negative (Negative); Shigella/Enteroinvasive Ecoli Negative (Negative)
== END 2025-07-26 12:28 | disposition home or self-care (01) ==
LOC: NCHCN 12:27
PROVIDERS: PCP Student in an Organized Health Care Education/Training Program; Visit Provider Student in an Organized Health Care Education/Training Program
DX: R19.7 Diarrhea, unspecified (principal)
CPT/HCPCS: 87015; 87269; 87272; 87505; 83993

== ENCOUNTER 2025-07-29 12:11 | Outpatient (REF) | payer BC, SELFPAY ==
[2025-08-06 19:29] LABS: Testosterone, Free 12.9 pg/mL (35.0-155.0)
== END 2025-07-29 12:12 | disposition home or self-care (01) ==
LOC: NCHCN 12:11
PROVIDERS: PCP Student in an Organized Health Care Education/Training Program; Visit Provider Student in an Organized Health Care Education/Training Program
DX: E29.1 Testicular hypofunction (principal)
CPT/HCPCS: 84402; 84403

== ENCOUNTER 2025-08-01 18:51 | Emergency (ER) | payer BC, SELFPAY ==
[2025-08-01 19:00] VITALS: BP 164/79; PULSE 63; RESP 18; TEMP 36.6; O2SAT 98
--- NOTE | 2025-08-01 19:04 | W.ED.GENAD ---
Discharge Plan Disposition Patient Disposition: Home Condition: Stable Discharge Details Clinical Impression: Hematuria Primary Care Provider: Kade Higuera ED Provider: Eliud Reyes Home Meds and New Rx's Prescriptions: Continued zolpidem 10 mg tablet 10 mg PO QHS fluoxetine 20 mg capsule 20 mg PO DAILY vitamin B complex Tablet 1 tab PO DAILY albuterol sulfate 90 mcg/actuation HFA aerosol inhaler 2 puff inhalation Q6H PRN (Reason: shortness of breath or wheezing) Qty: 6.7 0RF insulin glargine [Lantus Solostar U-100 Insulin] 100 unit/mL (3 mL) insulin pen 22 unit subcut QAM glipizide 2.5 mg tablet extended release 24hr 2.5 mg PO DAILY tamsulosin 0.4 mg capsule 0.8 mg PO QHS metformin 500 mg tablet extended release 24 hr 500 - 1,000 mg PO BID Rx Instructions: 1 tablet every morning and 2 tablets every evening finasteride 5 mg tablet 5 mg PO DAILY Qty: 90 3RF simvastatin 20 mg tablet 20 mg PO DAILY cyanocobalamin (vitamin B-12) 1,000 mcg capsule 1,000 mcg PO QDAY Discharge Instructions Instructions: Blood in Urine (Hematuria), Adult ED Additional Instructions: You were seen in the emergency department for your hematuria, your urine is mixing with blood from an unknown source, there is no evidence of any large kidney stone or urinary tract infection or kidney infection, there is no large bladder mass seen on CT but sometimes these things need to be worked up by cystoscopy. You have an upcoming urology appointment on Tuesday, I placed you on their follow-up list so they perhaps can plan for cystoscopy at that visit. Otherwise just monitor your condition at home, return for any signs of severe blood loss like weakness, paleness, shortness of breath, near fainting, fever or nausea or vomiting. Stand Alone Forms: Portal Information Referrals: Kade Higuera [Primary Care Provider, Medicine] HPI General Date/Time Provider Initiated Documentation: 08/01/25 19:03. HPI Narrative: 64 year-old male presents to ED today by POV/ambulating with a chief complaint of julio hematuria, dysuria with burning sensation starting today. Quality described as red urine, burning when peeing, lower back pain, no radiation to fever, nausea/vomiting, does endorse chronic loose stools, denies chest pain/cough/shortness of breath. Severity is described as severe. Palliating factors include nothing taken for pain today. Provoking factors include nothing specific, patient has had gross hematuria in the past but does not remember what was causing it. Patient not anticoagulated. Related Data Home Medications ?Medication ?Instructions ?Recorded ?Confirmed insulin glargine 100 unit/mL (3 22 unit subcut QAM 02/17/23 08/01/25 mL) subcutaneous pen (Lantus Solostar U-100 Insulin) glipizide 2.5 mg tablet, extended 2.5 mg PO DAILY 04/11/24 08/01/25 release 24 hr tamsulosin 0.4 mg capsule 0.8 mg PO QHS 06/19/24 08/01/25 albuterol sulfate 90 mcg/actuation 2 puff inhalation Q6H PRN 08/18/24 08/01/25 aerosol inhaler shortness of breath or wheezing #6.7 grams metformin 500 mg tablet,extended 500 - 1,000 mg PO BID 01/03/25 08/01/25 release 24 hr vitamin B complex 1 tab PO DAILY 01/03/25 08/01/25 fluoxetine 20 mg capsule 20 mg PO DAILY 02/28/25 08/01/25 zolpidem 10 mg tablet 10 mg PO QHS 02/28/25 08/01/25 finasteride 5 mg tablet 5 mg PO DAILY #90 tabs 06/24/25 08/01/25 cyanocobalamin (vitamin B-12) 1,000 mcg PO QDAY 08/01/25 08/01/25 1,000 mcg capsule simvastatin 20 mg tablet 20 mg PO DAILY 08/01/25 08/01/25 Previous Rx's ?Medication ?Instructions ?Recorded albuterol sulfate 90 mcg/actuation 2 puff inhalation Q6H PRN 08/18/24 aerosol inhaler shortness of breath or wheezing #6.7 grams finasteride 5 mg tablet 5 mg PO DAILY #90 tabs 06/24/25 Allergies Allergy/AdvReac Type Severity Reaction Status Date / Time ENVIRONMENTAL/DOGS/CATS Allergy Mild ITCHY Uncoded 08/01/25 19:04 WATERY EYES General Stated Complaint: Urinary SAM: 3 Review of Systems All systems reviewed & are unremarkable except as noted in HPI and below Exam Narrative Exam Narrative: GENERAL APPEARANCE: Well-nourished, non-toxic, awake and alert, atraumatic, mild acute distress. SKIN: Warm, pink, dry, intact, without rashes/lesions/ulcerations. HEAD: Normocephalic, atraumatic, normal hair distribution for gender/age. EYES: Normal conjunctiva, no exudates on lids/lashes. ENT: Nares patent, no circumoral cyanosis, no facial swelling NECK: Supple, trachea midline, painless cervical ROM. LUNGS/CHEST: Lungs CTA bilaterally-no rhonchi/rales/wheeze diffusely, non-labored respirations, normal A/P diameter, symmetrical expansion, no chest wall deformity HEART (CV/PV): Regular rate and rhythm without murmur, no peripheral edema, no JVD. ABDOMEN: Soft, non-distended, no guarding, left lower quadrant abdominal tenderness exquisitely, suprapubic discomfort without rebound tenderness, no other abdominal tenderness or rebound tenderness, negative Root sign, patient endorses mild tenderness with CVA percussion bilaterally. : Normal external genitalia, no scrotal swelling or erythema MSK: Normal ROM, no swelling/deformity to bilateral UEs or LEs, moving all extremities without weakness, no cyanosis, spine midline without tenderness, normal curvature. NEURO: Mental Status AAOx4 - alert to person, place, time, events No facial droop, no forehead involvement. Motor: No focal weakness Sensory: sensation intact to light touch globally. Gait normal: patient ambulated without ataxia into ED room. PSYCH: euthymic, cooperative, pleasant, appropriate speech Course Vital Signs Vital signs: Vital Signs Temperature 36.6 C 08/01/25 19:00 Pulse 63 08/01/25 19:00 Respiratory Rate 18 08/01/25 19:00 Blood Pressure 164/79 H 08/01/25 19:00 Pulse Oximetry 98 08/01/25 19:00 Temperature 36.6 C 08/01/25 19:00 Temperature Source Oral 08/01/25 19:00 Pulse 63 08/01/25 19:00 Respiratory Rate 18 08/01/25 19:00 Blood Pressure 164/79 H 08/01/25 19:00 Pulse Oximetry 98 08/01/25 19:00 Oxygen Delivery Method Room Air 08/01/25 19:00 Oxygen Flow Rate 0 08/01/25 19:00 Pain Level 3 08/01/25 19:00 Medical Decision Making This dictation utilizes [id number] dictation software and may contain unedited grammatical errors. 64 year-old male presents to ED today by POV/ambulating with a chief complaint of julio hematuria, dysuria with burning sensation starting today. Quality described as red urine, burning when peeing, lower back pain, no radiation to fever, nausea/vomiting, does endorse chronic loose stools, denies chest pain/cough/shortness of breath. Severity is described as severe. Palliating factors include nothing taken for pain today. Provoking factors include nothing specific, patient has had gross hematuria in the past but does not remember what was causing it. Patients' medical history: History of Lyme disease, gross hematuria, BPH with LUTS, balanitis, exposure to hepatitis B, asthma, GERD, urinary stress incontinence, chronic low back pain, T2DM, hyperlipidemia, hypoadrenalism. Family and social history: Noncontributory. Pertinent exam findings / vital signs include endorses mild CVA tenderness to percussion bilaterally, left lower quadrant tenderness, suprapubic discomfort with palpation without rebound tenderness, no upper abdominal tenderness or rebound tenderness, negative Root sign, benign cardiopulmonary exam, nontoxic and afebrile, neuro intact. Differential / pathologies of concern include pyelonephritis, UTI, renal colic, kidney stone, diverticulitis, bladder malignancy. Diagnostic studies of: - CBC, CMP, lipase, urinalysis, CT ABD/pelvis without and with. - CBC shows some mild anemia at 12.1 with recent 07/24 lab showing 12.6- do not suspect hemorrhage - CMP without actionable abnormality - UA shows proteinuria and hematuria without nitrates, no signs of infection - Lipase negative - CT shows no obstructive uropathy, no large bladder mass Interventions of: - 1 g IV Tylenol, 15 mg IV ketorolac, 1 L IVF NS. - Placed patient on Urology f/u list ED Course/Assessment/Plan: 64-year-old male presents with hematuria and dysuria onset today, has had episodic hematuria in the past but does not know what it is from. He denies any smoking history, his labs are reassuring with stable chronic anemia, no evidence of UTI or obstructive uropathy, CMP without MARIA EUGENIA, I counseled the patient that his urine has blood in it and that he would need to be referred to urology for likely cystoscopy, he does have a urology appointment this upcoming Tuesday and I did state that I would place him on the follow-up list so perhaps they can plan for the procedure at that visit. Counseled to return for any signs of significant blood loss like dizziness, weakness, shortness of breath or worsening fevers. Findings not consistent with obstructive uropathy, UTI, pyelonephritis, large bladder mass visible on CT. Disposition of Hematuria. Patient verbalized understanding of the plan and return to ED criteria and engaged in shared decision making. Medical Records Medical records reviewed: Yes I reviewed the patient's medical records. Imaging Data Radiologic Study: Attestation: I personally reviewed and interpreted this imaging study as follows: Imaging: CT Scan Radiologist's impression: Exam: CT Abdomen And Pelvis Without And With Contrast Exam date and time: 08/01/2025 8:52 PM Age: 64 years old Clinical indication: Other: Renal stone vs hematuria vs malig; Prior surgery; Surgery date: 6+ months; Surgery type: Gastric banding 2010 TECHNIQUE: Imaging protocol: Computed tomography of the abdomen and pelvis without and with contrast. Contrast material: OMNIPAQUE 350; Contrast volume: 100 ml; Contrast route: INTRAVENOUS (IV); COMPARISON: CT ABDOMEN PELVIS WO/W 05/01/2020 3:28 PM FINDINGS: Tubes, catheters and devices: Gastric band device in place. Liver: Normal. No mass. Gallbladder and biliary ducts: Moderate-sized calcified gallstone noted in the gallbladder. Gallbladder otherwise unremarkable. No significant biliary ductal dilation. Pancreas: Normal. No ductal dilation. Spleen: Normal. No splenomegaly. Adrenal glands: Normal. No mass. Kidneys and ureters: Normal. No hydronephrosis. Stomach and bowel: Unremarkable. No obstruction. No mucosal thickening. Appendix: The appendix is visualized and appears normal. Intraperitoneal space: Unremarkable. No free air. No significant fluid collection. Vasculature: Unremarkable. No abdominal aortic aneurysm. Lymph nodes: Unremarkable. No enlarged lymph nodes. Urinary bladder: Unremarkable as visualized. Reproductive: Unremarkable as visualized. Bones/joints: Moderate degenerative changes throughout the lower spine. No vertebral body compression. No acute fracture. Soft tissues: Unremarkable. IMPRESSION: No acute abnormality. Incidental chronic findings including cholelithiasis Dictated and Authenticated by: Artem Wilkinson MD. Lab Data Lab results reviewed: Yes I reviewed the patient's lab results. Labs: Laboratory Tests Range/Units 08/01/25 08/01/25 19:45 20:25 WBC (4.4-10.8) 10^3/uL 7.47 RBC (4.36-5.78) 10^6/uL 3.94 L Hgb (13.5-17.5) g/dL 12.1 L Hct (40.0-50.0) % 35.9 L MCV (80-95) fL 91 MCH (27.0-33.0) pg 30.7 MCHC (32.0-36.0) % 33.7 RDW (11.8-14.1) % 12.0 Plt Count (130-400) 10^3/uL 288 MPV (8.0-11.0) fL 8.8 Immature Gran % % 0.3 Neutrophils % % 45.3 Lymphocytes % % 39.8 Monocytes % % 8.2 Eosinophils % % 5.6 Basophils % % 0.8 Nucleated RBC % (0.0-0.3) % 0.0 Absolute Neutrophils (1.2-6.7) 10^3/uL 3.39 Absolute Lymphocytes (1.2-3.4) 10^3/uL 2.97 Absolute Monocytes (0.1-0.8) 10^3/uL 0.61 Absolute Eosinophils (0.0-0.7) 10^3/uL 0.42 Absolute Basophils (0.0-0.2) 10^3/uL 0.06 Sodium (136-145) mmol/L 144 Potassium (3.5-5.1) mmol/L 3.9 Chloride (98-107) mmol/L 106 Carbon Dioxide (20.0-31.0) mmol/L 28.8 Anion Gap (3-11) mmol/L 9.2 BUN (9-23) mg/dL 13 Creatinine (0.73-1.18) mg/dL 0.80 Est GFR (CKD-EPI 2020) (mL/min/1.73m2) 96.84 Glucose (74-106) mg/dL 87 Calcium (8.3-10.6) mg/dL 9.2 Total Bilirubin (0.2-1.2) mg/dL 0.4 AST (<34) U/L 22 ALT (10-49) U/L 17 Alkaline Phosphatase (46-116) U/L 48 Total Protein (5.7-8.2) g/dL 7.1 Albumin (3.2-5.0) g/dL 4.3 Lipase (<53) U/L 34 Urine Color (Yellow) Yellow Urine Clarity (Clear) Clear Urine pH (5-8) 5.5 Ur Specific Voss (1.005-1.025) 1.025 Urine Protein (Neg-Trace) mg/dL 30 H Urine Ketones (Negative) mg/dL Trace H Urine Blood (Negative) Large H Urine Nitrite (Negative) Negative Urine Bilirubin (Negative) Negative Urine Urobilinogen (Up to 0.2) mg/dL 0.2 Ur Leukocyte Esterase (Negative) Negative Urine RBC (0-2) HPF >50 H Urine WBC (0-5) HPF 0-2 Ur Epithelial Cells (Negative) HPF Moderate Urine Crystals (Negative) HPF Negative Urine Bacteria (Negative) HPF Rare Urine Casts (Negative) LPF Negative Urine Mucus (Negative) Moderate Ur Culture Indicated? 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) Male urinary stress incontinence (Acute) Tachypnea (Acute) Light headedness (Acute) Chronic low back pain (Chronic) Lumbar spondylosis (Acute) Disorder of patellofemoral joint (Acute) Senile hyperkeratosis (Acute) Essential hypertension (Acute) Bilateral hearing loss (Acute) Acute eczematoid otitis externa (Acute) Insomnia (Acute) Testicular hypofunction (Acute) Type 2 diabetes mellitus (Acute) Tinea cruris (Acute) Herpes simplex disease (Acute) Hamstring tightness of both lower extremities (Acute) Patellar tendinitis of both knees (Acute) Left knee pain (Acute) Right knee pain (Acute) Paresthesias (Acute) Corns and callosities (Acute) Hemangioma (Acute) Tubular adenoma (Acute ~07/2023) Screen for colon cancer (Acute) Atypical pigmented skin lesion (Acute) Colon adenomas (Acute) 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) [place]-Schlatter's disease (Acute) Hyperlipidemia (Acute) Sensorineural hearing loss (SNHL) of right ear with unrestricted hearing of left ear (Acute) Pain of right patellofemoral joint (Chronic) Depo-Medrol injection: 04/27/2024 Pain of left patellofemoral joint (Chronic) Depo-Medrol injection: 04/27/2024 Primary hypoadrenalism (Acute) Dysthymic disorder (Acute) HTN (hypertension) (Chronic) Insulin dependent type 2 diabetes mellitus (Acute) Degenerative joint disease (DJD) of lumbar spine (Acute) Decreased hearing of both ears (Acute) Lumbar radiculitis (Acute) Medical History Exposure to viral hepatitis Constipation Seborrheic keratosis (07/15/14) Neoplasm of skin (07/08/14) History of Lyme disease 01/10/23 (swollen, cellulitis with doxycycline). Gross hematuria BMI 28.0-28.9,adult Lower urinary tract symptoms (LUTS) Balanitis Concussion Seborrheic keratosis Exposure to hepatitis B Lower urinary tract infection Obesity Surgical History History of removal of nevus Hx of laparoscopic gastric banding (~12/25/10) 2009 colonoscopy (~07/2023) path sent Social History Smoking/Tobacco Use Status: Never Smoking risk assessment performed?: Yes Alcohol Intake: current Alcohol Intake frequency: holidays/special occasions only Drug use: Never Substance use type: does not use Household members: spouse and children Housing: house Number of Children: 1 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 Do you feel safe at home: Yes Do you feel safe in your relationship?: Yes PAWSS Have you Been Recently Intoxicated or Drunk Within the Last 30 days?: No Have you Ever Experienced Previous Episodes of Alcohol Withdrawal?: No Have you ever Experienced Withdrawal Seizures?: No Have you ever Experienced Delirium Tremens(DT)s?: No Have you ever undergone Alcohol Rehabilitation Treatment (i.e, inpt ot outpatient treatment programs)?: No Have you ever Experienced Blackouts?: No Have you ever Combined Alcohol with other Downers within the last 90 days?: No Have you ever Combined Alcohol with any other Substance of Abuse during the last 90 days?: No Positive Blood Alcohol level on Presentation? [PCS.BAL]: No Evidence of Increased Autonomic Activity (i.e. HR>120, tremor, sweating, agitation, nausea)?: No Result: 0
--- NOTE | 2025-08-01 19:15 | DI.CT_ITS ---
Exam(s) CT ABDOMEN PELVIS WO/W EXAM: CT ABDOMEN PELVIS WO/W CLINICAL HISTORY: renal stone vs hematuria vs malig TECHNIQUE: Imaging Protocol: Axial computed tomography images with coronal and sagittal reformatted images were created and reviewed. CONTRAST MATERIAL: Intravenous: Omnipaque 350 Contrast volume:100 mL Oral: No COMPARISON: CT CT ABDOMEN PELVIS WO/W from 05/01/2020 FINDINGS: ABDOMEN: Lung Bases: No acute abnormality. Liver: Normal density. No measurable mass. Portal, Superior Mesenteric, and Splenic Veins: Unremarkable. Gallbladder and Biliary Tract: Gallstones are present. There is no significant biliary ductal dilatation. Pancreas: Normal density, no abnormal calcifications or inflammatory process. Spleen: Normal. Adrenals: No masses seen. Kidneys: Normal size, contour and axis. No radiodense stones or obstructive uropathy. No masses seen. Abdominal Aorta: Abdominal portion non-dilated. Atherosclerotic calcification is present. Bowel: No obstruction or bowel wall thickening. Appendix is unremarkable. Note is again made of a gastric band. Peritoneal Cavity: No ascites, collection or mesenteric inflammatory response. No free air. Lymph Nodes: Within normal limits. Bones: Within normal limits for the patient's age. Soft Tissues: There are small fat containing bilateral inguinal hernias. PELVIS: Bladder: Symmetric distention, no gross wall thickening. Reproductive Organs: The prostate gland is mildly enlarged. It impinges on the base of the urinary bladder. Lymph Nodes: Within normal limits. Bones: Within normal limits for the patient's age. IMPRESSION: 1. There is no evidence of nephrolithiasis, obstructive uropathy or mass. 2. Cholelithiasis without CT evidence to suggest acute cholecystitis. 3. There is no acute abdominal or pelvic process. 4. The preliminary [facility] report was reviewed. RADIATION DOSE DELIVERED: 2,236.16mGy.cm Total DLP 2,236.16mGy.cm Total DLP DATA REPOSITORY: All CT scans at this facility are submitted to the National Radiology Data Registry (NRDR) Dose Index Registry (DIR) with the [employer] ([employer]). RADIATION OPTIMIZATION: All CT scans at this facility use at least one of these dose optimization techniques: automated exposure control; mA and/or kV adjustment per patient size (includes targeted exams where dose is matched to clinical indication); or iterative reconstruction.
--- NOTE | 2025-08-01 19:39 | TELEP.MEDR_ITS ---
Date of service: 08/01/25 Time of Service: 19:39 Telepharmacy Home Med Rec Allergies Allergies: ENVIRONMENTAL/DOGS/CATS Allergy (Mild, Uncoded 08/01/25 19:04) ITCHY WATERY EYES Interview Person Interviewed: Patient Quality Quality of Interview/Accuracy of Medication List: Good Sources Sources used to compile medication list: [employer] Medication List, Patient List and SureScripts Changes made to Home Medication List: ADDITIONS: Simvastatin B12 DELETIONS: Duplicate Albuterol MVI Triamcinolone Valtrex Meloxicam Clotrimazole CHANGES: Metformin dosing Lantus dosing Recommended Changes Attestation: The home medication list is now updated to the best of my knowledge and is ready to be reconciled by the provider. Please contact the TelePharmacy Medication Reconciliation Pharmacist at for any questions.
[2025-08-01 19:52] LABS: Glucose Negative (Negative)
[2025-08-01 19:58] LABS: C & S Indicated? No; RBC >50 HPF (0-2); WBC 0-2 HPF (0-5)
[2025-08-01] MEDS: ACETAMINOPHEN 1,000 MG/100 ML BAG 400 MG IVPB (20:16)
[2025-08-01] MEDS: Ketorolac 15 MG/ML VIAL IVP (20:17)
[2025-08-01] MEDS: Normal Saline 1,000 ML 1000 ML IV (20:18)
[2025-08-01 20:28] LABS: Abs Immature Grans 0.02 10^3/uL (0.0-0.06); HCT 35.9 % (40.0-50.0); HGB 12.1 g/dL (13.5-17.5); Immature Grans % 0.3 %; MCH 30.7 pg (27.0-33.0); MCHC 33.7 % (32.0-36.0); MCV 91 fL (80-95); MPV 8.8 fL (8.0-11.0); Platelet Count 288 10^3/uL (130-400); RBC 3.94 10^6/uL (4.36-5.78); RDW 12.0 % (11.8-14.1); RDW-SD 39.8 fL; WBC 7.47 10^3/uL (4.4-10.8)
[2025-08-01 20:38] VITALS: BP 150/76; PULSE 59; TEMP 36.8; O2SAT 99
[2025-08-01] MEDS: Normal Saline - Diluent 50 ML VIAL IJ (20:52)
[2025-08-01] MEDS: Normal Saline Flush 10 ML SYR IVP (20:52)
[2025-08-01] MEDS: Omnipaque 350 MG/ML 100 ML BTL IJ (20:52)
[2025-08-01 20:54] LABS: Lipase 34 U/L (<53)
[2025-08-01 20:56] LABS: ALT 17 U/L (10-49); AST 22 U/L (<34); Albumin 4.3 g/dL (3.2-5.0); Alkaline Phosphatase 48 U/L (46-116); Anion Gap 9.2 mmol/L (3-11); BUN 13 mg/dL (9-23); Bilirubin, Total 0.4 mg/dL (0.2-1.2); CO2 28.8 mmol/L (20.0-31.0); Calcium 9.2 mg/dL (8.3-10.6); Chloride 106 mmol/L (98-107); Glucose 87 mg/dL (74-106); Potassium 3.9 mmol/L (3.5-5.1); Sodium 144 mmol/L (136-145); Total Protein 7.1 g/dL (5.7-8.2)
[2025-08-01 21:24] VITALS: BP 169/86; PULSE 72; RESP 18; O2SAT 96
--- NOTE | 2025-08-01 22:14 | DI.[facility]_ITS ---
PROCEDURE INFORMATION: Exam: CT Abdomen And Pelvis Without And With Contrast Exam date and time: 08/01/2025 8:52 PM Age: 64 years old Clinical indication: Other: Renal stone vs hematuria vs malig; Prior surgery; Surgery date: 6+ months; Surgery type: Gastric banding 2010 TECHNIQUE: Imaging protocol: Computed tomography of the abdomen and pelvis without and with contrast. Contrast material: OMNIPAQUE 350; Contrast volume: 100 ml; Contrast route: INTRAVENOUS (IV); COMPARISON: CT ABDOMEN PELVIS WO/W 05/01/2020 3:28 PM FINDINGS: Tubes, catheters and devices: Gastric band device in place. Liver: Normal. No mass. Gallbladder and biliary ducts: Moderate-sized calcified gallstone noted in the gallbladder. Gallbladder otherwise unremarkable. No significant biliary ductal dilation. Pancreas: Normal. No ductal dilation. Spleen: Normal. No splenomegaly. Adrenal glands: Normal. No mass. Kidneys and ureters: Normal. No hydronephrosis. Stomach and bowel: Unremarkable. No obstruction. No mucosal thickening. Appendix: The appendix is visualized and appears normal. Intraperitoneal space: Unremarkable. No free air. No significant fluid collection. Vasculature: Unremarkable. No abdominal aortic aneurysm. Lymph nodes: Unremarkable. No enlarged lymph nodes. Urinary bladder: Unremarkable as visualized. Reproductive: Unremarkable as visualized. Bones/joints: Moderate degenerative changes throughout the lower spine. No vertebral body compression. No acute fracture. Soft tissues: Unremarkable. IMPRESSION: No acute abnormality. Incidental chronic findings including cholelithiasis Dictated and Authenticated by: Artem Wilkinson MD. Orderin Eric Kline MD
[2025-08-01 22:31] VITALS: BP 165/87; PULSE 66; RESP 16; O2SAT 98
== END 2025-08-01 22:34 | disposition home or self-care (01) ==
LOC: ER 22:21
PROVIDERS: Emergency Provider Physician Assistant; PCP Student in an Organized Health Care Education/Training Program
DX: R31.9 Hematuria, unspecified (principal); R10.814 Left lower quadrant abdominal tenderness; R30.0 Dysuria
CPT/HCPCS: 80053; 83690; 96361; 96365; 96375; 99285; 74178; 81003; 81015; 85025; 99284; J0131; J1885; J3490

== ENCOUNTER 2025-08-13 00:19 | Outpatient (CLI) | payer BC, SELFPAY ==
[2025-08-13 18:23] LABS: FSH 4.0 mIU/mL (1.4-18.1); LH 3.5 mIU/mL (1.5-9.3)
[2025-08-19 23:29] LABS: Testosterone, Free 11.6 pg/mL (35.0-155.0)
== END 2025-08-13 00:20 | disposition home or self-care (01) ==
LOC: LBO 00:19
PROVIDERS: PCP Student in an Organized Health Care Education/Training Program; Visit Provider Student in an Organized Health Care Education/Training Program
DX: R79.89 Other specified abnormal findings of blood chemistry (principal)
CPT/HCPCS: 36415; 84402; 84403; 83001; 83002